=== PATIENT | female | born 1945 | race Caucasian/White ===

== ENCOUNTER → 2016-08-14 | Day surgery (SDC) | payer OTHER ==
[2016-08-07 10:18] VITALS: BMI 39.0
[~2016-08-14] VITALS: Ht 167.6 cm; Wt 105.5 kg
[~2016-08-14] MED LIST: ALBU18002 INH; ALBU1AER9 INH; AMLO-110 PO; ASCO500T3 PO; ASPCH81X PO; ATOR-26 PO; ATV/1 PO; CANA1TAB PO; CARB200T3 PO; DIPH25CA65 PO; DOCU100T7 PO; FEXO1TAB49 PO; FLUT0.15 NAE; FLUT1INH INH; FRS/40 PO; GLIM4TAB PO; LABE1TAB28 PO; LIDOCAINE HCL 2% 2 ML VIAL (20MG/ML) ONE; LOSA1TAB38 PO; MONT1TAB3 PO; OXYC-57 PO; POTA10TA PO; PROPOFOL IV EMULSION 10 MG/ML 20 ML VIAL IV ONE; SITA100T3 PO; SODIUM CHLORIDE 0.9% 500ML 500 ML IV ONE; SPIR100T PO; TIZA4CAP PO; TRAZ50TA35 PO
[2016-08-14 12:09] VITALS: Ht 167.6 cm; Wt 105.5 kg
--- NOTE | 2016-08-14 12:32 | Endo History and Physical ---
History & Physical Date of Service: Aug 14, 2016. Chief Complaint: EPIGASTRIC PAIN Referring Physician: DR. HANSON History of Present Illness epigastric pain Past Medical History Diabetes, Arthritis, Anxiety, Sleep Apnea, CHF, Hypertension, COPD, CVA/TIA Past Surgical History Hx Cardiac Surgery: Yes (RT/LEFT CAROTID ENDARTERECTOMY) Hx Internal Defibrillator: No Hx Pacemaker: No Hx Abdominal Surgery: Yes (OPEN ROBYN, D&C) Hx of Implantable Prosthesis: No Hx Post-Op Nausea and Vomiting: No Hx Cancer Surgery: No Hx Thoracic Surgery: No Hx Orthopedic: No Hx Urinary Tract Surgery: No Family History None Social History Smoking Status: Former Smoker Hx Substance Use: Yes (SEE MED REC) Hx Alcohol Use: Yes (VERY RARELY) Allergies Coded Allergies: Clarithromycin (Verified Allergy, Unknown, BURNING MOUTH, 08/14/16) Current Medications Reported Home Medications Medications Dose Route/Sig Max Daily Dose Days Date Category Dose Instructions Vitamin C (Ascorbic Acid) 500 Mg Tab 1 Tab PO DAILY AT NOON 08/07/16 Reported Proair Respiclick (Albuterol Sulfate) 108 Mcg/Act Aer 2 Puffs INH QID PRN 08/07/16 Reported Aspirin Chewable (Aspirin) 81 Mg Chew 81 Mg PO QAM 08/07/16 Reported Normodyne (Labetalol HCl) 200 Mg Tab 200 Mg PO BID 08/07/16 Reported Flonase Allergy Relief (Fluticasone Propionate (Nasal)) 50 Mcg/Act Spr 2 [place] TANIYA HS 08/07/16 Reported Breo Ellipta (Fluticasone Furoate-Vilanterol) 1 Inh Inh 1 Puff INH QAM 08/07/16 Reported Singulair (Montelukast Sodium) 10 Mg Tab 10 Mg PO QPM 08/07/16 Reported Lipitor (Atorvastatin Calcium) 80 Mg Tab 80 Mg PO DAILY AT NOON 08/07/16 Reported Lasix (Furosemide) 40 Mg Tab 40 Mg PO BID 08/07/16 Reported TAKE 1 TAB IN AM TAKE 0.5TAB IN AFTERNOON Cozaar (Losartan Potassium) 100 Mg Tab 100 Mg PO HS 08/07/16 Reported Benadryl Allergy (Diphenhydramine Hcl) 25 Mg Cap 1 Cap PO BID 30 08/07/16 Reported Norvasc (Amlodipine Besylate) 5 Mg Tab 5 Mg PO HS 08/07/16 Reported Aldactone (Spironolactone) 100 Mg Tab 100 Mg PO DAILY AT LUNCH 08/07/16 Reported Amaryl (Glimepiride) 4 Mg Tab 4 Mg PO QAM 08/07/16 Reported K-Tabs (Potassium Chloride) 10 Meq Tab 1 Tab PO QPM 08/07/16 Reported Trazodone (Trazodone HCl) 50 Mg Tab 50 Mg PO HS 08/07/16 Reported Invokana (Canagliflozin) 100 Mg Tab 1 Tab PO QPM 08/07/16 Reported Tegretol (Carbamazepine) 200 Mg Tab 200 Mg PO BID 08/07/16 Reported Ativan (Lorazepam) 1 Mg Tab 1 Mg PO HS 08/07/16 Reported Zanaflex (Tizanidine HCl) 4 Mg Cap 4 Mg PO Q8H PRN 08/07/16 Reported Januvia (Sitagliptin Phosphate) 100 Mg Tab 100 Mg PO DAILY AT LUNCH 08/07/16 Reported Stool Softener (Docusate Sodium) 100 Mg Tab 1 Tab PO QPM 08/07/16 Reported Percocet 5MG/325MG (Oxycodone/Acetaminophen) Tab 1 Tab PO TID PRN 30 08/07/16 Reported PAIN Proair Hfa (Albuterol) Aers 2 Puffs INH QID PRN 09/08/15 Rx Use 2 puffs prior to activity + every 6 hours as needed for wheezing, chest tightness, shortness of breat. Teodora Allergy (Fexofenadine Hcl) 180 Mg Tab 1 Tab PO HS 14 08/07/16 Reported Vital Signs Weight (Kilograms): 105.5 Height (Feet): 5 Height (Inches): 6 Date Time Temp Pulse Resp B/P Pulse Ox O2 Delivery O2 Flow Rate FiO2 08/14/16 12:17 36.8 80 18 182/90 94 Room Air Physical Exam General Appearance: WD/WN Respiratory/Chest: Auscultation: breath sounds normal Cardiovascular: Apical Impulse: not displaced Heart Auscultation: RRR Abdomen: Bowel Sounds: normal Assessment and Plan Epigastric pain - EGD
--- NOTE | 2016-08-14 13:05 | GI REPORT ---
Procedure Date: 08/14/2016 12:44 PM Procedure: Upper GI endoscopy Indications: Epigastric abdominal pain Medicines: See the Anesthesia note for documentation of the administered medications Complications: No immediate complications. Estimated Blood Loss: Estimated blood loss: none. Procedure: Pre-Anesthesia Assessment: - ASA Grade Assessment: III - A patient with severe systemic disease. After obtaining informed consent, the endoscope was passed under direct vision. Throughout the procedure, the patient's blood pressure, pulse, and oxygen saturations were monitored continuously. The scope was introduced through the mouth, and advanced to the second part of duodenum. The upper GI endoscopy was accomplished without difficulty. The patient tolerated the procedure well. Findings: There was a mild ring at the GE junction. The esophagus was otherwise normal. There was a mild amount of bilious fluid in the stomach. There was patchy erythema in the antrum. There was a scar and deformity of the antrum, as well as deformity of the pylorus, likely from prior ulcer. The stomach was otherwise normal. Random biopsies done. The duodenum was normal. Random biopsies done. Recommendation: - Discharge patient to home. Landon Kline M.D. Landon Kline MD 08/14/2016 1:05:04 PM This report has been signed electronically. Note Initiated On: 08/14/2016 12:44 PM I attest to the content of the Intraoperative Record and orders documented therein, exceptions below
--- NOTE | 2016-08-14 13:19 | Discharge Instructions ---
Endoscopy Patient Instructions Date / Procedure(s) Performed Aug 14, 2016. EGD Allergy Information Coded Allergies: Clarithromycin (Verified Allergy, Unknown, BURNING MOUTH, 08/14/16) Discharge Date / Findings Aug 14, 2016. Scar from prior PUD. Mild gastritis. Medication Instructions Stopped Medication(s): INSTRUCTED TO ONLY TAKE THE LABETALOL. Provider Instructions Activity Restrictions - No exercising or heavy lifting for 24 hours. - Do not drink alcohol the day of the procedure. - Do not drive a car or operate machinery until the day after the procedure. - Do not make any important decisions or sign important papers in 24 hours after the procedure. Following Day: - Return to full activity which may include returning to work/school. Diet Start your diet with liquids and light foods (jello, soup, juice, toast). Then eat your usual diet if not nauseated. Treatment For Common After Affects For mild abdominal pain, bloating, or excessive gas: - Rest - Eat lightly - Lie on right side Follow-Up Information Follow-up with DR. HANSON as scheduled Anesthesia Information What You Should Know You have had a procedure that required some medicine to reduce anxiety and discomfort. This treatment is called moderate sedation. After receiving the treatment, you may be sleepy, but you will be able to breathe on your own. The effects of the treatment may last for several hours. Follow these instructions along with Activity/Diet recommendations noted above: * Do NOT do anything where dizziness or clumsiness would be dangerous. * Rest quietly at home today, then you can be up and about tomorrow. * Have a responsible person stay with you the rest of today. * You may have had an I.V. today. If so, you may take the dressing off later today. Recommendations Call your doctor if: * Trouble breathing * Continuous vomiting for more than 24 hours * Temperature above 101 degrees * Severe abdominal pain or bloating * Pain not relieved by pain medicine ordered * There is increased drainage or redness from any incision * A large amount of rectal bleeding greater than 2-3 tablespoons. (If you had a polyp/s removed or have hemorrhoids, a small amount of blood - from the rectum is to be expected.) * You have any unanswered questions or concerns. IN THE EVENT OF A SERIOUS EMERGENCY, GO TO THE NEAREST EMERGENCY ROOM Your discharge instructions were prepared by provider Landon Mcclelland. Patient Instructions Signature Page Rama Alvarez Patient (or Guardian) Signature/Date: I have read and understand the instructions given to me by my caregivers. Caregiver/RN/Doctor Signature/Date: The above-named patient and/or guardian has received patient instructions on this date. + Original Patient Signature Page (only) stays with chart. Please make copy for patient.
[2016-08-14 13:29] VITALS: BP 150/68; PULSE 71; O2SAT 91
--- NOTE | 2016-08-14 14:06 | Anesthesiology Progress Note ---
Anesthesia Post Op Note Date & Time Aug 14, 2016 at 14:06 Vital Signs Pain Intensity: 0 Vital Signs Past 12 Hours Date Time Temp Pulse Resp B/P Pulse Ox O2 Delivery O2 Flow Rate FiO2 08/14/16 13:29 71 18 150/68 91 Room Air 08/14/16 13:14 73 18 132/59 92 Room Air 08/14/16 12:59 72 18 133/63 95 Room Air 08/14/16 12:17 36.8 80 18 182/90 94 Room Air Notes Mental Status: alert / awake / arousable, participated in evaluation Pt Amnestic to Procedure: Yes Nausea / Vomiting: adequately controlled Pain: adequately controlled Airway Patency, RR, SpO2: stable & adequate BP & HR: stable & adequate Hydration State: stable & adequate Anesthetic Complications: no major complications apparent
== END | disposition home or self-care (01) ==
LOC: C.GI 11:46
PROVIDERS: ATTEND Internal Medicine Gastroenterology
DX: K29.50 Unspecified chronic gastritis without bleeding (principal); K29.80 Duodenitis without bleeding; R10.13 Epigastric pain; K22.2 Esophageal obstruction; E11.9 Type 2 diabetes mellitus without complications; I10 Essential (primary) hypertension; G47.30 Sleep apnea, unspecified; Z87.891 Personal history of nicotine dependence; J44.9 Chronic obstructive pulmonary disease, unspecified; Z86.73 Personal history of transient ischemic attack (TIA), and cerebral infarction without residual deficits

== ENCOUNTER → 2016-12-10 | Outpatient (CLI) | payer OTHER ==
[~2016-12-10] MED LIST changes: -LIDOCAINE HCL 2% 2 ML VIAL (20MG/ML) ONE; -PROPOFOL IV EMULSION 10 MG/ML 20 ML VIAL IV ONE; -SODIUM CHLORIDE 0.9% 500ML 500 ML IV ONE
--- NOTE | 2016-12-10 16:16 | MAMMOGRAPHY REPORT ---
BILATERAL DIGITAL SCREENING MAMMOGRAM WITH CAD: 12/10/2016 CLINICAL HISTORY: Routine screening. TECHNIQUE: Bilateral CC, MLO and repeat right MLO views were obtained. Current study was also evalua sallie with a Computer Aided Detection (CAD) system. COMPARISON: Comparison is made to exams dated: 10/11/2015 mammogram, 09/14/2014 mammogram, 09/13/2013 ma mmogram, 08/10/2012 mammogram, 08/07/2011 mammogram, and 08/06/2010 mammogram - [facility] er. BREAST COMPOSITION: There are scattered areas of fibroglandular density in both breasts. FINDINGS: There is stable nodularity in the medial anterior left breast. No new suspicious mass, arc hitectural distortion or cluster of microcalcifications is seen. IMPRESSION: ACR BI-RADS CATEGORY 1: NEGATIVE There is no mammographic evidence of malignancy. A 1 year screening mammogram is recommended. The pa tient will receive written notification of the results. Approximately 10% of breast cancers are not detected with mammography. A negative mammographic report should not delay biopsy if a clinically suggestive mass is present. Leyla Galloway M.D. ay/:12/10/2016 15:32:35 Quotation Clerk: Giorgio WRIGHT(Bubba)(M), [facility] letter sent: Normal 1/2 BI-RADS Code: ACR BI-RADS Category 1: Negative
== END | disposition home or self-care (01) ==
LOC: C.MAMM 14:57
PROVIDERS: ATTEND Internal Medicine
DX: Z12.31 Encounter for screening mammogram for malignant neoplasm of breast (principal)

== ENCOUNTER 2017-11-14 04:59 | Inpatient (IN) | payer OTHER ==
[2017-10-13 11:55] VITALS: BMI 37.0
--- NOTE | 2017-10-13 12:44 | PAT Medication Instructions ---
Service Date Oct 13, 2017. Current Home Medication List Albuterol Hfa (Ventolin Hfa), Unknown Dose INH UD PRN for prn Amlodipine (Norvasc), 5 MG PO HS Ascorbic Acid (Vitamin C), 1 TAB PO DAILY AT NOON Aspirin (Aspirin Chewable), 81 MG PO QAM Atorvastatin (Lipitor), 80 MG PO DAILY AT NOON Canagliflozin (Invokana), 1 TAB PO QPM Carbamazepine (Tegretol), 200 MG PO BID Diphenhydramine Hcl (Benadryl Allergy), 1 CAP PO HS Fexofenadine Hcl (Teodora Allergy), 1 TAB PO HS Fluticasone Furoate-Vilanterol (Breo Ellipta), 1 PUFF INH QAM Fluticasone Propionate (Nasal) (Flonase Allergy Relief), 2 SPRAY TANIYA HS Furosemide (Lasix), 40 MG PO BID Glimepiride (Amaryl), 4 MG PO QAM Home O2 Therapy (Oxygen), 3 LITERS NA UD PRN for PRN Labetalol (Normodyne), 200 MG PO BID Lorazepam (Ativan), 1 MG PO HS Losartan Potassium (Cozaar), 100 MG PO HS Menthol (Topical Analgesic) (Biofreeze), Unknown Dose TOP HS Montelukast Sodium (Singulair), 10 MG PO QPM Oxycodone/Acetaminophen 5MG/325MG (Percocet 5MG/325MG), 1 TAB PO BID PRN for Pain Potassium Chloride (K-Tabs), 1 TAB PO QPM Sitagliptin Phosphate (Januvia), 100 MG PO DAILY AT LUNCH Spironolactone (Aldactone), 100 MG PO DAILY AT LUNCH Tizanidine (Zanaflex), 4 MG PO Q8H PRN for Pain Trazodone Hcl (Trazodone), 50 MG PO HS [Rescue Kit], Unknown Dose [dry eye , eye drop ], Unknown Dose OPB UD PRN for dry eyes [eucerin diabetic], 1 APPLN TOP UD Medication Instructions For Your Scheduled Surgery -Continue as directed: Home O2 Therapy (Oxygen), 3 LITERS NA UD PRN for PRN [Rescue Kit], Unknown Dose - Hold the following medications 24 hours prior to surgery: Furosemide (Lasix), 40 MG PO BID (do not take the night before or the morning of surgery) Losartan Potassium (Cozaar), 100 MG PO HS (do not take the night before surgery) Menthol (Topical Analgesic) (Biofreeze), Unknown Dose TOP HS [eucerin diabetic], 1 APPLN TOP UD - Hold the following medications the morning of surgery: Glimepiride (Amaryl), 4 MG PO QAM Tizanidine (Zanaflex), 4 MG PO Q8H PRN for Pain - Take the following medications the morning of surgery with a sip of water: Aspirin (Aspirin Chewable), 81 MG PO QAM Carbamazepine (Tegretol), 200 MG PO BID Fluticasone Furoate-Vilanterol (Breo Ellipta), 1 PUFF INH QAM Labetalol (Normodyne), 200 MG PO BID Oxycodone/Acetaminophen 5MG/325MG (Percocet 5MG/325MG), 1 TAB PO BID PRN for Pain (if needed, can be taken up to four hours before surgery) [dry eye , eye drop ], Unknown Dose OPB UD PRN for dry eyes (if needed) - Take the following medications as scheduled the afternoon/night before surgery : Albuterol Hfa (Ventolin Hfa), Unknown Dose INH UD PRN for prn (if needed) Amlodipine (Norvasc), 5 MG PO HS Ascorbic Acid (Vitamin C), 1 TAB PO DAILY AT NOON Atorvastatin (Lipitor), 80 MG PO DAILY AT NOON Canagliflozin (Invokana), 1 TAB PO QPM Carbamazepine (Tegretol), 200 MG PO BID Diphenhydramine Hcl (Benadryl Allergy), 1 CAP PO HS Fexofenadine Hcl (Teodora Allergy), 1 TAB PO HS Fluticasone Propionate (Nasal) (Flonase Allergy Relief), 2 SPRAY TANIYA HS Labetalol (Normodyne), 200 MG PO BID Lorazepam (Ativan), 1 MG PO HS Montelukast Sodium (Singulair), 10 MG PO QPM Oxycodone/Acetaminophen 5MG/325MG (Percocet 5MG/325MG), 1 TAB PO BID PRN for Pain (if needed) Potassium Chloride (K-Tabs), 1 TAB PO QPM Sitagliptin Phosphate (Januvia), 100 MG PO DAILY AT LUNCH Spironolactone (Aldactone), 100 MG PO DAILY AT LUNCH Tizanidine (Zanaflex), 4 MG PO Q8H PRN for Pain (if needed) Trazodone Hcl (Trazodone), 50 MG PO HS [dry eye , eye drop ], Unknown Dose OPB UD PRN for dry eyes (if needed) If you have any questions please call us at [phone] or [phone] or [phone]
[2017-10-13 14:12] LABS: BASO % 0.4 %; BASO ABS # 0.04 K/uL (0-0.2); EOS ABS # 0.19 K/uL (0-0.5); HEMATOCRIT 39.9 % (37-47); HEMOGLOBIN 13.2 g/dL (12.0-16.0); IG# 0.03 K/uL (0.00-0.02); LYMPH % 27.5 %; LYMPH ABS # 2.66 K/uL (1.2-3.4); MEAN CELL VOLUME 93.4 fL (80-100); MEAN CORPUSCULAR HEMOGLOBIN 30.9 pg (25-34); MEAN CORPUSCULAR HGB CONC 33.1 g/dl (32-36); MEAN PLATELET VOLUME 10.3 fL (7.4-10.4); MONO % 8.1 %; MONO ABS # 0.78 K/uL (0.11-0.59); NEUT % 61.7 %; NEUT ABS # 5.98 K/uL (1.4-6.5); PLATELET COUNT 278 K/uL (130-400); RED CELL DISTRIBUTION WIDTH CV 12.8 % (11.5-14.5); RED CELL DISTRIBUTION WIDTH SD 43.3 fL (36.4-46.3); WHITE BLOOD COUNT 9.68 K/uL (4.8-10.8)
[2017-10-13 14:21] LABS: PTT PATIENT 26.5 SECONDS (21.0-31.0)
--- NOTE | 2017-11-13 09:12 | HISTORY & PHYSICAL EXAMINATION ---
DATE OF ADMISSION: 11/14/2017 CHIEF COMPLAINT: Primary osteoarthritis of the right shoulder. HISTORY OF PRESENT ILLNESS: Rama is a pleasant 71-year-old female who has been complaining of chronic right shoulder pain. X-rays and clinical examination are diagnostic for primary osteoarthritis of the right shoulder. After failing extensive conservative treatment, she has elected to proceed with a right total shoulder arthroplasty. She understands the risks, benefits, alternatives to procedure and has elected to proceed. 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 PAST SURGICAL HISTORY: Significant for cholecystectomy, microvascular decompression of the fifth nerve over the face for the trigeminal neuralgias, and bilateral carotid endarterectomies in 2003. ALLERGIES: BIAXIN. MEDICATIONS: Include aspirin, amlodipine, furosemide, Lipitor, carbamazepine, losartan, spironolactone, labetalol, Teodora, vitamin C, glimepiride, Singulair, Breo, trazodone, Januvia, tizanidine, Invokana, [place], and potassium. FAMILY HISTORY: Significant for stroke and ankylosing spondylitis. SOCIAL HISTORY: The patient is , rarely drinks, has 2 kids. Her is able to take care of her at home. REVIEW OF SYSTEMS: She complains of right shoulder pain. All other pertinent review of systems are negative. PHYSICAL EXAMINATION: GENERAL: She is awake, alert, and oriented x3. She is in no apparent distress. She is very pleasant. HEENT: Pupils are equal, round, and reactive to light. Extraocular motions intact. Oral mucosa is pink and moist. CARDIOVASCULAR: The heart has regular rate per radial pulse. RESPIRATORY: The lungs patrizia symmetrically bilaterally with no audible breath sounds. GASTROINTESTINAL: The abdomen is soft, nontender, nondistended. MUSCULOSKELETAL: On physical examination of the right shoulder, she has slightly decreased range of motion in forward flexion. She can forward flex about 125 degrees. She has 5/5 muscle strength in full can test and external rotation. She has significant crepitus throughout range of motion and a lot of pain over the anterior glenohumeral joint line. IMAGING DATA: X-rays of the right shoulder show advanced osteoarthritis with joint space narrowing and large inferior osteophyte formation. IMPRESSION: Advanced osteoarthritis of the right shoulder. PLAN: We will proceed with a right total shoulder arthroplasty. Postoperatively, she will be placed in an arm sling and kept overnight in the hospital for postoperative medical management. She will use ALOHA upon discharge.
[~2017-11-14] VITALS: Ht 167.6 cm; Wt 105.8 kg
[2017-11-14] VITALS (12 sets, daily range): BP systolic 132–166; BP diastolic 72–92; PULSE 65–84; TEMP 36.4–37.3; O2SAT 90–100; Ht 167.6 cm; Wt 105.8 kg
[~2017-11-14 04:59] MED LIST changes: -ALBU18002 INH; -ALBU1AER9 INH; -DOCU100T7 PO; +MENT4GEL TOP; +OXGN; +RESCUE; +VNTHFA/IN INH; +[UNRECOGNIZED DRUG - OTHER] TOP; +[UNRECOGNIZED DRUG - REMARK] OPB
[2017-11-14] MEDS ORDERED: LACTATED RINGER'S 1000ML IV SCH (06:00)
[2017-11-14] MEDS ORDERED: FAMOTIDINE 20 MG TAB PO SCH (06:00)
[2017-11-14] MEDS ORDERED: ACETAMINOPHEN 500 MG TAB PO SCH (06:00)
[2017-11-14] MEDS ORDERED: GABAPENTIN 300 MG CAP PO SCH (06:00)
[2017-11-14] MEDS ORDERED: ROPIVACAINE 5MG/ML 30 ML 150 MG, BUPIVACAINE 0.5% MPF INJ 30 ML, EpINEphrine HCL INJ 0.... INFIL SCH ×8 (06:00)
[2017-11-14] MEDS ORDERED: CEFAZOLIN 2000MG IV PUSH 15 ML IV SCH (06:00)
[2017-11-14] MEDS ORDERED: BACITRACIN 50000 UNIT VIAL ONE (06:34)
[2017-11-14] MEDS ORDERED: ORTHO JOINT ANESTHETIC ONE (06:34)
[2017-11-14] MEDS ORDERED: FENTANYL CITRATE INJ 50 MCG/1 ML 2 ML VIAL ONE (06:35)
[2017-11-14] MEDS ORDERED: MIDAZOLAM HCL 1 MG/ML 2ML VIAL ONE ×2 (06:35)
[2017-11-14] MEDS ORDERED: ROPIVACAINE 0.5% 5 MG/ML 30 ML VIAL ONE (06:40)
[2017-11-14] MEDS ORDERED: BUPIVACAINE/EPINEPHRINE 0.5% MPF 1:200,000 10 ML VIAL ONE (06:40)
[2017-11-14] MEDS ORDERED: SODIUM CHLORIDE 0.9% INJ 10 ML VIAL ONE (06:40)
--- NOTE | 2017-11-14 06:40 | History & Physical Bridge Note ---
H&P Re-Evaluation Bridge Note: I have examined the patient, reviewed the History & Physical and in the interval since the performance of the History & Physical I have noted the following changes of clinical significance: No changes noted
[2017-11-14] MEDS: TRANEXAMIC ACID INJ 1,000 MG x 2 Bags IV SCH ×4 (06:55→11:03)
[2017-11-14] MEDS ORDERED: EpHEDrine SULFATE INJ 50 MG/ML AMP IV PRN (09:00)
[2017-11-14] MEDS ORDERED: ATROPINE SULFATE 0.1 MG/ML 5ML SYR IV PRN (09:00)
[2017-11-14] MEDS ORDERED: ONDANSETRON INJ 2 MG/ML 2 ML VIAL IV PRN ×2 (09:00→09:45)
[2017-11-14] MEDS ORDERED: NEOSTIGMINE METHYLSULFATE 5 MG/5 ML SYR ONE (09:13)
[2017-11-14] MEDS ORDERED: EpHEDrine SULFATE 50MG/5ML SYR ONE (09:13)
[2017-11-14] MEDS ORDERED: ROCURONIUM BROMIDE 10 MG/ML 5 ML VIAL ONE (09:13)
[2017-11-14] MEDS ORDERED: EpHEDrine SULFATE INJ 50 MG/ML AMP ONE (09:13)
[2017-11-14] MEDS ORDERED: LIDOCAINE HCL 2% 2 ML VIAL (20MG/ML) ONE (09:13)
[2017-11-14] MEDS ORDERED: GLYCOPYRROLATE INJ 0.2 MG/ML VIAL ONE ×2 (09:13→09:25)
[2017-11-14] MEDS ORDERED: PHENYLEPHRINE 100MCG/ML 5ML SYR ONE (09:13)
--- NOTE | 2017-11-14 09:33 | [facility] Post Operative Brief Note ---
Immediate Operative Summary Operative Date November 14, 2017. Pre-Operative Diagnosis Primary Osteoarthritis or Right Shoulder Post-Operative Diagnosis Primary Osteoarthritis or Right Shoulder Procedure(s) Performed Right Total Shoulder Arthroplasty Surgeon Dr Yang Ceramics Machine Operator Surgeon(s) Carlton Palafox PA-C Estimated Blood Loss 250ML Findings Consistent with Post-Op Diagnosis Specimens A: Humeral Head Anesthesia Type General Regional Complication(s) none Disposition Disposition: Recovery Room / PACU
--- NOTE | 2017-11-14 09:43 | Discharge Instructions ---
Discharge Instructions Date of Service November 14, 2017. Admission Reason for Admission: Right Shoulder Degenerative Joint Disease Discharge Discharge Diagnosis / Problem: Left Total Shoulder Discharge Goals Goal(s): Decrease discomfort, Improve function Activity Recommendations Activity Limitations: as noted below . Instructions / Follow-Up Instructions / Follow-Up Activity and Therapy Recommendations: * Wear your sling for 3 weeks, unless otherwise instructed. You may remove your sling to shower and to dress, but otherwise, you should be in your sling at all times, including while sleeping * The shoulder replacement is very stable and you can use your hand while in the sling * Physical Therapy should start about 3-5 days from your day of surgery. Therapy will last about 8-12 weeks * You were shown a series of exercises in the hospital. Do these exercises daily including the exercises you were shown in physical therapy. Medications: * Narcotic You will likely be sent home from the hospital with a prescription for the narcotic pain medication that worked best throughout your stay. * Other medications may be prescribed for specific circumstances. If you have any questions, please call the office at . * Resume previous home medications unless otherwise instructed Dressing Care: If the incision is not draining then you may leave the mayra open to air. If there is a little bit of drainage or if the mayra are getting stuck on your clothing then cover the incision with a dry dressing. The mayra will be removed at your 2 week follow-up appointment. Showering: You may shower 5 days from the day of surgery. Let the soapy shower water run over the mayra and pat them dry. Do not scrub or soak the incision. Things To Watch For: * Drainage from the incision site that occurs more than one week after your surgery. * Increased redness at the incision site. * Fever above 102 degrees Fahrenheit. * Unusual chest pain or shortness of breath. * Call [facility] at with any of the above problems Follow-Up Visit: Follow-up with Dr. Yang 2 weeks after your day of surgery. An appointment was probably scheduled when you signed-up for surgery in the office. If you have any questions call Office Instructions: More detailed instructions as well as Frequently Asked Questions were provided in a folder by our office when you signed-up for surgery. Please review these instructions when you get home. If you have any further questions or concerns, please feel free to call the office at [phone] Current Hospital Diet Patient's current hospital diet: Diabetes Type 2 Diet Discharge Diet Recommended Diet: Diabetes Type 2 Diet Procedures Procedures Performed: Right Total Shoulder Arthroplasty Pending Studies Studies pending at discharge: no Medical Emergencies . Who to Call and When: Medical Emergencies: If at any time you feel your situation is an emergency, please call 911 immediately. . Non-Emergent Contact Non-Emergency issues call your: Surgeon Call Non-Emergent contact if: wound has increased drainage, wound has increased redness . "Provider Documentation" section prepared by Edgard Yang. .
[2017-11-14] MEDS ORDERED: SOD PHOSPHATE/SOD BIPHOSPHATE ENEMA 132 ML BTL PR PRN (09:45)
[2017-11-14] MEDS ORDERED: BISACODYL 10 MG SUPP PR PRN (09:45)
[2017-11-14] MEDS ORDERED: METOCLOPRAMIDE HCL INJ 5 MG/ML 2 ML VIAL IV PRN (09:45)
[2017-11-14] MEDS ORDERED: NALOXONE HCL 0.4 MG/1 ML VIAL/CARP IV PRN (09:45)
[2017-11-14] MEDS ORDERED: MAGNESIUM HYDROXIDE SUSP 30 ML UDC PO PRN (09:45)
[2017-11-14] MEDS ORDERED: HYDROmorphone HCL 2 MG TAB PO PRN (09:45)
[2017-11-14] MEDS ORDERED: ALBUTEROL HFA INHALER 8.5 GM INH ONE (10:13)
--- NOTE | 2017-11-14 10:20 | DIAGNOSTIC IMAGING REPORT ---
R SHOULDER MIN 2 VIEWS ROUTINE CLINICAL HISTORY: Post shoulder surgery pain COMPARISON: None. DISCUSSION: Anatomic alignment post right shoulder arthroplasty. Expected soft tissue postoperative change. IMPRESSION: Anatomic alignment post right shoulder arthroplasty. The above report was generated using voice recognition software. It may contain grammatical, syntax or spelling errors. Electronically signed by: Reginaldo Mary M.D. 11/14/2017 10:19 AM Dictated Date/Time: 11/14/2017 10:19 AM
--- NOTE | 2017-11-14 10:22 | OPERATIVE REPORT ---
DATE OF OPERATION: 11/14/2017 PREOPERATIVE DIAGNOSIS: Primary osteoarthritis of the right shoulder. POSTOPERATIVE DIAGNOSIS: Primary osteoarthritis of the right shoulder. PROCEDURE: Right total shoulder arthroplasty. SURGEON: Edgard Yang DO COLLAR RUNNER: Efrem Palafox PA-C, whose assistance was necessary for retraction and closure. ANESTHESIA: General with a right interscalene nerve block. COMPLICATIONS: None. CONDITION: Stable to PACU. INDICATIONS: Rama is a pleasant 71-year-old female who presented to my office with chronic increasing right shoulder pain. X-rays and clinical examination were diagnostic for primary osteoarthritis of the right shoulder. After failing conservative treatment, she elected to undergo a right total shoulder arthroplasty. OPERATION AND FINDINGS: On 11/14/2017, she arrived at [facility] for the above procedure. She was seen in the preoperative holding area and the operative extremity was identified and signed. She was given preoperative antibiotic and a right interscalene nerve block. She was taken back to the operating room, laid on the table in supine position and put under general anesthesia. She was then put into the beach chair position. The right shoulder was prepped and draped in sterile fashion. Time-out was done. The patient's operative extremity was properly identified. A deltopectoral approach was used. Dissection was taken down through the fascia and the anterior shoulder was exposed. The long head of the biceps tendon was tenodesed to the upper border of the pectoralis major. The subscapularis was tenotomized off the lesser tuberosity with a centimeter of cuff tissue remaining. The proximal humerus was exposed. Sequential reaming up to a size 12 reamer was done. Off that reamer, a proximal humeral resection guide was placed and the humerus was resected at 135 degrees of inclination and 30 degrees of retroversion. The head was removed and osteophytes were removed off the inferior humeral neck. The rotator cuff was palpated and felt to be fully intact. The glenoid was then exposed. Time was spent doing a complete circumferential labral release. The biceps stump was removed. The conXt signature guide was then snapped on to the anterior aspect of the glenoid and the guide pin was placed in the total shoulder arthroplasty hole. A small reamer was used to ream the glenoid. The central boss was then drilled followed by 3 peripheral peg holes. The final glenoid was then cemented in place with Palacos-G cement. The proximal humerus was then exposed. Sequential broaching up to a size 12 broach was done. A size 42 x 18 mm eccentric humeral head was then impacted into place. The shoulder was reduced, brought through a full range of motion and felt to be stable. The shoulder was dislocated. The broach was removed. The final size 12 mini stem was then impacted into place. A 42 x 18 mm eccentric humeral head was then impacted into place. The shoulder was reduced, brought through a full range of motion and felt to be stable. The subscapularis was then tenodesed back to the lesser tuberosity with transosseous FiberWire sutures and [id number] sutures. Two FiberWire sutures were placed in the lateral rotator interval. Surrounding soft tissues were injected with 100 mL of an orthopedic pain control cocktail. The axillary nerve was palpated and intact. The joint was then irrigated with 3 L normal saline solution with bacitracin. The skin was then closed with 2-0 Vicryl, 3-0 V-Loc suture and mayra. She was placed in a soft dressing and a regular arm sling. She was then extubated, transferred to a [facility] and taken to the postanesthesia care in stable condition. She tolerated the procedure well. IMPLANTS USED: I used a Biomet comprehensive right total shoulder arthroplasty with a small glenoid with Regenerex post-size 12 press fit mini stem and a 42 x 18 mm eccentric humeral head. The glenoid was cemented with Palacos-G cement. I attest to the content of the Intraoperative Record and any orders documented therein. Any exception s are noted below.
[2017-11-14] MEDS: FENTANYL CITRATE INJ 50 MCG/1 ML 2 ML VIAL IV PRN ×4 (10:30→10:46)
--- NOTE | 2017-11-14 11:05 | Anesthesiology Progress Note ---
Anesthesia Post Op Note Date & Time November 14, 2017 at 10:57 Vital Signs Pain Intensity: 4 Vital Signs Past 12 Hours Date Time Temp Pulse Resp B/P (MAP) Pulse Ox O2 Delivery O2 Flow Rate FiO2 11/14/17 10:55 36.3 94 Nasal Cannula 2 11/14/17 10:47 64 18 95 11/14/17 10:47 64 18 11/14/17 10:46 146/62 11/14/17 10:42 64 18 11/14/17 10:42 64 18 94 11/14/17 10:41 155/70 11/14/17 10:37 65 15 11/14/17 10:37 65 15 95 11/14/17 10:36 163/72 11/14/17 10:32 71 22 11/14/17 10:32 71 22 108/59 94 11/14/17 10:27 67 19 11/14/17 10:27 67 19 145/53 97 11/14/17 10:26 149/70 11/14/17 10:22 66 20 145/54 95 11/14/17 10:22 67 20 11/14/17 10:21 148/75 155/60 11/14/17 10:17 65 17 11/14/17 10:17 65 17 143/54 96 11/14/17 10:16 146/62 11/14/17 10:12 67 18 142/54 95 11/14/17 10:12 67 18 11/14/17 10:11 66 19 157/77 144/53 11/14/17 10:11 19 11/14/17 10:06 66 14 11/14/17 10:06 68 14 153/77 95 11/14/17 10:01 71 21 11/14/17 10:01 70 21 149/76 93 154/77 11/14/17 10:00 70 96 40 11/14/17 09:56 71 15 11/14/17 09:56 36.2 68 17 147/85 99 BiPAP 40 11/14/17 09:56 71 15 147/85 97 11/14/17 05:41 37.3 72 18 146/72 90 Room Air Notes Mental Status: alert / awake / arousable, participated in evaluation Pt Amnestic to Procedure: Yes Nausea / Vomiting: adequately controlled Pain: adequately controlled Airway Patency, RR, SpO2: stable & adequate BP & HR: stable & adequate Hydration State: stable & adequate Anesthetic Complications: no major complications apparent The patient is a 71 y/o with a history of COPD requiring home 02, CHAZ on BIPAP, Asthma, carotid stenosis s/p B CEA, CVA, DM II and glaucoma s/p R total shoulder arthroplasty with Dr. Yang under [place] with supraclavicular nerve block. The patient's saturation on room air preoperatively was 90% and she stated she rarely maintains her oxygen level above 90 without oxygen. Her lungs were diminished throughout on exam but clear. The patient did well intraoperatively and was extubated at the end of the procedure. She was placed on BIPAP for a short time in recovery prophylactically to avoid obstruction, however she became more alert this was discontinued. She is now awake and is saturating 94% on 2l nc. She will be going to the floor with continuous pulse oximetry. Dr. Costa from internal medicine will be following her. A full report was given to him.
[2017-11-14] MEDS ORDERED: GLUCAGON FOR INJ 1 MG VIAL SQ PRN ×2 (11:45→12:30)
[2017-11-14] MEDS ORDERED: CARBOHYDRATES FOR HYPOGLYCEMIA PO PRN ×2 (11:45→12:30)
[2017-11-14] MEDS ORDERED: GLUCOSE 40% GEL 15 GM TUBE PO PRN ×2 (11:45→12:30)
[2017-11-14] MEDS ORDERED: DEXTROSE 50% 50 ML SYR IV PRN ×2 (11:45→12:30)
[2017-11-14] MEDS ORDERED: GLUCOSE 10 TABS/TUBE PO PRN ×2 (11:45→12:30)
[2017-11-14] MEDS ORDERED: ALBUT/IPRATROP 3MG/0.5MG NEB 3 ML VIAL INH PRN (12:00)
[2017-11-14] MEDS ORDERED: IPRASOL4 INH (12:08)
[2017-11-14] MEDS ORDERED: PHARMACY GLYCEMIC MGMT CONSULT STA (12:22)
--- NOTE | 2017-11-14 12:27 | Medical Consult ---
Consultation Date of Consultation: November 14, 2017. Attending Physician: Edgard Yang DO Reason for Consultation: Medical management History of Present Illness Pt is 71 y/o F with PMH HTN, COPD/asthma, CHAZ on BiPAP and O2, CVA, obesity, HLD , chronic back pain, DM II seen in medical consult after right shoulder arthroplasty by Dr. Yang today. States currently pain is under control. States slight paresthesias to right fingers, is able to freely move right hand and fingers. Denies any nausea or vomiting, drinking water without difficulty. Patient has not urinated yet since surgery. Last BM yesterday. Denies fever/ chills, diaphoresis, N/V/D/C, BRUCE, dizziness, syncope, vision changes, neck pain , CP, SOB, orthopnea, palpitations, cough, sore throat, choking, otalgia, rhinorrhea, abdominal pain, lower extremity edema, rashes, urinary symptoms. 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 (11) Trigeminal neuralgia Status: Chronic Surgical Problems: (1) Fatty tumor Permanent Comment: removed Status: Chronic (2) History of arthroplasty of right shoulder Permanent Comment: 11/14/17 - [facility] -Dr Yang Status: Resolved (3) Nerve decompression Permanent Comment: for trigeminal neuralgia Status: Chronic (4) S/P carotid endarterectomy Status: Chronic (5) S/P cholecystectomy Status: Chronic Family History Cancer FH: CAD (coronary artery disease) Hypertension Stroke Social History Smoking Status: Former Smoker Smokeless Tobacco Use: No Alcohol Use: none Drug Use: none Marital Status: Housing Status: lives with family Occupation Status: unemployed Allergies Coded Allergies: Clarithromycin (Verified Allergy, Unknown, BURNING MOUTH, 11/14/17) Uncoded Allergies: SEASONAL (Allergy, Unknown, seasonal allergies sinus congestion, 10/13/17) Current Inpatient Medications Current Inpatient Medications Medications (Trade) Dose Ordered Sig/Jeanette Route Start Time Stop Time Status Last Admin Dose Admin Cefazolin Sodium 15 ml @ 3.75 mls/ min PREOP IV 11/14/17 06:00 11/14/17 18:00 11/14/17 07:36 3.75 MLS/MIN Acetaminophen (Tylenol Tab) 1,000 mg PREOP PO 11/14/17 06:00 11/14/17 18:00 11/14/17 06:07 1,000 MG Famotidine (Pepcid Tab) 20 mg PREOP PO 11/14/17 06:00 11/14/17 18:00 11/14/17 06:06 20 MG Gabapentin (Neurontin Cap) 300 mg PREOP PO 11/14/17 06:00 11/14/17 18:00 11/14/17 06:06 300 MG Amlodipine Besylate (Norvasc Tab) 5 mg HS PO 11/14/17 21:00 12/14/17 20:59 Aspirin (Ecotrin Tab) 81 mg QAM PO 11/15/17 09:00 12/15/17 08:59 Atorvastatin Calcium (Lipitor Tab) 80 mg DAILY PO 11/15/17 09:00 12/15/17 08:59 Carbamazepine (Tegretol Tab) 200 mg TID PO 11/14/17 14:00 12/14/17 13:59 Diphenhydramine HCl (Benadryl Cap) 25 mg HS PO 11/14/17 21:00 12/14/17 20:59 Fexofenadine HCl (Teodora Tab) 180 mg HS PO 11/14/17 21:00 12/14/17 20:59 Fluticasone Propionate (Flonase Nasal [place]) 2 sprays HS TANIYA 11/14/17 21:00 12/14/17 20:59 Lorazepam (Ativan Tab) 1 mg HS PO 11/14/17 21:00 12/14/17 20:59 Losartan Potassium (coZAAR TAB) 100 mg HS PO 11/14/17 21:00 12/14/17 20:59 Montelukast Sodium (Singulair Tab) 10 mg QPM PO 11/14/17 21:00 12/14/17 20:59 Spironolactone (Aldactone Tab) 100 mg DAILY PO 11/15/17 09:00 12/15/17 08:59 Trazodone HCl (Desyrel Tab) 50 mg HS PO 11/14/17 21:00 12/14/17 20:59 Miscellaneous Information (Order Awaiting Action) 1 ea QS N/A 11/14/17 16:00 12/14/17 15:59 Tizanidine HCl (Zanaflex Tab) 4 mg Q8H PRN PO 11/14/17 09:45 12/14/17 09:44 Metoclopramide HCl (Reglan Inj) 10 mg Q6H PRN IV 11/14/17 09:45 12/14/17 09:44 Ondansetron HCl (Zofran Inj) 4 mg Q6H PRN IV 11/14/17 09:45 12/14/17 09:44 Potassium Chloride 10 meq/ Sodium Chloride 1,005 ml @ 100 mls/hr Q10H3M IV 11/14/17 21:00 12/14/17 20:59 Acetaminophen 1000 mg/Empty Bag 100 ml @ 400 mls/hr Q8 IV 11/14/17 14:00 11/15/17 13:59 Naloxone HCl (Narcan Inj) 0.1 mg Q2M PRN IV 11/14/17 09:45 12/14/17 09:44 Magnesium Hydroxide (Milk Of Magnesia Susp) 30 ml Q6H PRN PO 11/14/17 09:45 12/14/17 09:44 Bisacodyl (Dulcolax Supp) 10 mg DAILY PRN PA 11/14/17 09:45 12/14/17 09:44 Sodium Biphosphate/ Sodium Phosphate (Fleet Enema) 132 ml DAILY PRN PA 11/14/17 09:45 12/14/17 09:44 Senna (Senokot Tab) 17.2 mg HS PO 11/14/17 21:00 12/14/17 20:59 Docusate Sodium (coLACE CAP) 100 mg BID PO 11/14/17 21:00 12/14/17 20:59 Multivitamins (Multivitamin Tab) 1 tab DAILY PO 11/15/17 09:00 12/15/17 08:59 Hydromorphone HCl (Dilaudid Inj) 1 mg Q2HWA PRN IV 11/14/17 09:45 11/28/17 09:44 Hydromorphone HCl (Dilaudid Tab) 2 mg Q4HWA PRN PO 11/14/17 09:45 11/28/17 09:44 Insulin Glargine (Lantus Solostar Pen) 15 units Q12 SC 11/14/17 21:00 12/14/17 20:59 Insulin Aspart (novoLOG ASPART) SLIDING SCALE If C... ACHS SC 11/14/17 12:00 12/14/17 11:59 Glucose (Glucose 40% Gel) 15-30 GRAMS 15 GRAMS... UD PRN PO 11/14/17 11:45 12/14/17 11:44 Glucose (Glucose Chew Tab) 4-8 Tablets 4 Tabl... UD PRN PO 11/14/17 11:45 12/14/17 11:44 Dextrose (Dextrose 50% 50ML Syringe) 25-50ML 25ML FOR ... UD PRN IV 11/14/17 11:45 12/14/17 11:44 Glucagon (Glucagon Inj) 1 mg UD PRN SQ 11/14/17 11:45 12/14/17 11:44 Carbohydrates (Carbohydrates For Hypoglycemia) 15-30 GRAMS 15 grams if BSG 54-69... UD PRN PO 11/14/17 11:45 12/14/17 11:44 Cefazolin Sodium 2000 mg/Syringe 15 ml @ 3.75 mls/ min Q8H IV 11/14/17 16:00 11/15/17 15:59 Albuterol/ Ipratropium (Duoneb) 3 ml Q4R PRN INH 11/14/17 12:00 12/14/17 11:59 Non-Formulary Medication (Potassium Chloride (K-Tabs)) 1 tab QPM PO 11/14/17 21:00 12/14/17 20:59 UNV Labetalol HCl (Normodyne Tab) 100 mg QAM PO 11/15/17 09:00 12/15/17 08:59 UNV Labetalol HCl (Normodyne Tab) 200 mg PM PO 11/14/17 21:00 12/14/17 20:59 UNV Furosemide (Lasix Tab) 40 mg QAM PO 11/15/17 09:00 12/15/17 08:59 UNV Furosemide (Lasix Tab) 20 mg DAILY PO 11/14/17 14:00 12/14/17 13:59 UNV Review of Systems See HPI for pertinent positives & negatives. All other systems reviewed and were otherwise negative Physical Exam Date Time Temp Pulse Resp B/P (MAP) Pulse Ox O2 Delivery O2 Flow Rate FiO2 11/14/17 11:44 69 16 147/81 (103) 94 2.0 11/14/17 11:20 36.4 67 16 139/80 (99) 96 Nasal Cannula 2.0 11/14/17 11:20 96 Nasal Cannula 2.0 11/14/17 11:20 96 Nasal Cannula 2.0 11/14/17 11:03 65 15 11/14/17 11:03 64 15 95 11/14/17 11:01 160/62 11/14/17 10:58 61 16 11/14/17 10:58 61 16 94 11/14/17 10:56 149/72 11/14/17 10:55 36.3 94 Nasal Cannula 2 11/14/17 10:53 67 20 11/14/17 10:53 70 20 92 11/14/17 10:51 149/90 11/14/17 10:48 65 17 11/14/17 10:48 65 17 94 11/14/17 10:47 64 18 95 11/14/17 10:47 64 18 11/14/17 10:46 146/62 11/14/17 10:42 64 18 11/14/17 10:42 64 18 94 11/14/17 10:41 155/70 11/14/17 10:37 65 15 11/14/17 10:37 65 15 95 11/14/17 10:36 163/72 11/14/17 10:32 71 22 11/14/17 10:32 71 22 108/59 94 11/14/17 10:27 67 19 11/14/17 10:27 67 19 145/53 97 11/14/17 10:26 149/70 11/14/17 10:22 66 20 145/54 95 11/14/17 10:22 67 20 11/14/17 10:21 148/75 155/60 11/14/17 10:17 65 17 11/14/17 10:17 65 17 143/54 96 11/14/17 10:16 146/62 11/14/17 10:12 67 18 142/54 95 11/14/17 10:12 67 18 11/14/17 10:11 66 19 157/77 144/53 11/14/17 10:11 19 11/14/17 10:06 66 14 11/14/17 10:06 68 14 153/77 95 11/14/17 10:01 71 21 11/14/17 10:01 70 21 149/76 93 154/77 11/14/17 10:00 70 96 40 11/14/17 09:56 71 15 11/14/17 09:56 36.2 68 17 147/85 99 BiPAP 40 11/14/17 09:56 71 15 147/85 97 11/14/17 05:41 37.3 72 18 146/72 90 Room Air General Appearance: no apparent distress, + obese, + pertinent finding (Very pleasant) Head: normocephalic, atraumatic Eyes: normal inspection, sclerae normal ENT: hearing grossly normal, pharynx normal, + pertinent finding (mucous membranes moist) Neck: supple, no JVD, trachea midline Respiratory/Chest: lungs clear, normal breath sounds, no respiratory distress, no accessory muscle use Cardiovascular: regular rate, rhythm, no murmur, normal peripheral pulses Abdomen/GI: normal bowel sounds, non tender, soft Extremities/Musculoskelatal: normal capillary refill, no pedal edema, + pertinent finding (R shoulder with surgical dressing in place without discharge noted. R arm in sling. ROM R wrist and fingers intact. Strong and equal bilateral block press operator strength. Bilateral uppre and lower extremities with Sensation to light touch intact, brisk capillary refill and distal pulses intact) Neurologic/Psych: alert, normal mood/affect, oriented x 3 Skin: normal color, warm/dry Laboratory Results Last 24 Hours Test 11/14/17 05:44 11/14/17 09:56 Bedside Glucose 142 mg/dl 177 mg/dl Assessment & Plan Pt POST OP DAY#0 S/P R SHOULDER ARTHROPLASTY by Dr Yang -pain management per ortho -wound management per ortho -PT/OT as appropriate -DVT prophylaxis per ortho -incentive spirometry -monitor H&H for acute blood loss anemia ASTHMA/COPD Patient reports needs her albuterol varies on a daily basis depending on humidity. Has had to use albuterol for past week. Sometimes uses a couple times a week. Uses oxygen 3.5L NC with activities or as needed, has not used recently. Denies any shortness of breath or chest pain at this time. -continuous pulse ox -DuoNeb as needed -Continue oxygen NC as needed -Continue Singulair HTN Stable. Continue to monitor -Continue spironolactone, labetalol, losartan, Lasix, amlodipine DM II HA1c 6.3 on 09/2017 -Hold Januvia, glimepiride, Invokana -Basal bolus insulin per protocol CHAZ -Continue BiPAP with 3.5 mL oxygen at bedtime HLD -Continue atorvastatin ANXIETY -Continue Ativan as needed -Continue trazodone at bedtime as needed TRIGEMINAL NEURALGIA -Continue Tegretol DVT Prophylaxis -per ortho Disposition admitted med surg Full Code Follows with Dr Sr for routine care Pt was seen with Dr Costa. See addendum Pt will be followed by Dr Joyner during remaining hospital course. Attending addendum; The patient was seen and examined in medical floor She is a status post right shoulder arthroplasty with comorbid conditions as mentioned above Following surgery she does have some right shoulder pain but no other significant symptoms On examination No apparent distress at rest Hemodynamically stable Chest-clear to auscultate bilaterally Heart-regular Abdomen-benign ,nontender, no organomegaly Extremities-trace edema bilaterally SECTION BEAMER-alert, awake and oriented 3 No focal neuro deficit Admission labs, chest x-ray, EKG reviewed Agree with the assessment and plan as mentioned above Dr. Erick Costa Additional Copies To Ferny Sr D.O.
[2017-11-14] MEDS: INSULIN ASPART 100 UNITS/ML 3 ML PEN SC SCH ×3 (13:23→21:07)
[2017-11-14] MEDS: ACETAMINOPHEN IV 1,000 MG in EMPTY BAG 0 ML IV SCH ×2 (13:30→22:00)
[2017-11-14] MEDS: CARBAMAZEPINE 200 MG TAB PO SCH ×2 (13:36→20:47)
[2017-11-14] MEDS: POTASSIUM CHLORIDE INJ 10 MEQ in SODIUM CHLORIDE 0.9% 1000ML 1,000 ML IV SCH (13:40)
[2017-11-14] MEDS ORDERED: FUROSEMIDE 20 MG TAB PO SCH (14:00)
[2017-11-14] MEDS ORDERED: CEFAZOLIN IV 2,000 MG in DEXTROSE 5% 50ML 50 ML IV SCH (16:00)
[2017-11-14] MEDS ORDERED: FUROSEMIDE 40 MG TAB PO SCH (17:00)
[2017-11-14] MEDS ORDERED: INSULIN ASPART 100 UNITS/ML 3 ML PEN SC SCH (17:15)
[2017-11-14] MEDS: CEFAZOLIN IV 2,000 MG in SYRINGE 0 ML IV SCH (17:44)
[2017-11-14] MEDS: HYDROmorphone INJ 2 MG/ML SYR/VIAL IV PRN (20:07)
[2017-11-14] MEDS: DOCUSATE SODIUM 100 MG CAP PO SCH (20:46)
[2017-11-14] MEDS ORDERED: AMLODIPINE BESYLATE 5 MG TAB PO SCH (21:00)
[2017-11-14] MEDS ORDERED: TRAZODONE HCL 50 MG TAB PO SCH (21:00)
[2017-11-14] MEDS ORDERED: MONTELUKAST SOD 10 MG TAB PO SCH (21:00)
[2017-11-14] MEDS ORDERED: POTASSIUM CHLORIDE 10 MEQ TABCR PO SCH (21:00)
[2017-11-14] MEDS ORDERED: LORAZEPAM 1 MG TAB PO SCH (21:00)
[2017-11-14] MEDS ORDERED: POTASSIUM CHLORIDE INJ 10 MEQ in SODIUM CHLORIDE 0.9% 1000ML 1,000 ML IV SCH (21:00)
[2017-11-14] MEDS ORDERED: LOSARTAN POTASSIUM 50 MG TAB PO SCH (21:00)
[2017-11-14] MEDS ORDERED: FLUTICASONE PROPIONATE NA SPR 16 GM BTL NAE SCH (21:00)
[2017-11-14] MEDS ORDERED: LABETALOL HCL 200 MG TAB PO SCH ×2 (21:00)
[2017-11-14] MEDS ORDERED: NON-FORMULARY MEDICATION (Canagliflozin (Invokana) 1 TAB) PO SCH (21:00)
[2017-11-14] MEDS ORDERED: FEXOFENADINE HCL 180 MG TAB PO SCH (21:00)
[2017-11-14] MEDS ORDERED: SENNA 8.6 MG TAB PO SCH (21:00)
[2017-11-14] MEDS: INSULIN GLARGINE SOLOSTAR 100 UNITS/ML 3 ML PEN SC SCH (21:08)
[2017-11-15] MEDS: HYDROmorphone INJ 2 MG/ML SYR/VIAL IV PRN ×3 (00:05→05:37)
[2017-11-15] MEDS: CEFAZOLIN IV 2,000 MG in SYRINGE 0 ML IV SCH ×2 (00:05→07:48)
[2017-11-15] MEDS: POTASSIUM CHLORIDE INJ 10 MEQ in SODIUM CHLORIDE 0.9% 1000ML 1,000 ML IV SCH ×2 (00:11→09:36)
[2017-11-15 03:54] VITALS: BP 129/62; PULSE 85; TEMP 36.5; O2SAT 93
[2017-11-15] MEDS: ACETAMINOPHEN IV 1,000 MG in EMPTY BAG 0 ML IV SCH (05:26)
[2017-11-15 06:28] LABS: HEMOGLOBIN 11.1 g/dL (12.0-16.0); MEAN CELL VOLUME 94.9 fL (80-100); MEAN CORPUSCULAR HEMOGLOBIN 30.1 pg (25-34); MEAN CORPUSCULAR HGB CONC 31.7 g/dl (32-36); MEAN PLATELET VOLUME 9.3 fL (7.4-10.4); PLATELET COUNT 256 K/uL (130-400); RED CELL DISTRIBUTION WIDTH SD 45.1 fL (36.4-46.3); WHITE BLOOD COUNT 13.51 K/uL (4.8-10.8)
[2017-11-15 06:51] LABS: CALCIUM 8.2 mg/dl (8.5-10.1)
[2017-11-15 07:28] VITALS: BP 149/72; PULSE 81; TEMP 37.5; O2SAT 94
[2017-11-15] MEDS ORDERED: DLD/2 PO (07:47)
[2017-11-15] MEDS: DOCUSATE SODIUM 100 MG CAP PO SCH (08:36)
[2017-11-15] MEDS: CARBAMAZEPINE 200 MG TAB PO SCH (08:38)
[2017-11-15] MEDS: INSULIN GLARGINE SOLOSTAR 100 UNITS/ML 3 ML PEN SC SCH (08:41)
[2017-11-15] MEDS: INSULIN ASPART 100 UNITS/ML 3 ML PEN SC SCH (08:42)
[2017-11-15] MEDS ORDERED: LABETALOL HCL 100 MG TAB PO SCH (09:00)
[2017-11-15] MEDS ORDERED: MULTIVITAMIN TAB PO SCH (09:00)
[2017-11-15] MEDS ORDERED: FUROSEMIDE 40 MG TAB PO SCH (09:00)
[2017-11-15] MEDS ORDERED: ATORVASTATIN 20 MG TAB PO SCH (09:00)
[2017-11-15] MEDS ORDERED: SPIRONOLACTONE 100 MG TAB PO SCH (09:00)
[2017-11-15] MEDS ORDERED: ASPIRIN 81 MG ECTAB PO SCH (09:00)
--- NOTE | 2017-11-15 09:23 | PROGRESS NOTE ---
DATE: 11/15/2017 CHIEF COMPLAINT: Status post right total shoulder arthroplasty, postop day #1. PROGRESS: Rama was seen and examined at bedside today. Overall, she is doing very well. She is having some soreness in the shoulder but it is not too bad. She was able to get some sleep last night; has no complaints. PHYSICAL EXAMINATION: RIGHT SHOULDER: The dressing is clean and dry. She is wearing her sling as instructed. Her radial, median and ulnar nerves are checked and intact at her wrist. Her axillary nerve was not checked yet. LABORATORY DATA: Shows an H and H today of 11.1 and 35.0. Her glucose is 122. Her vital signs are all stable on 2 L nasal cannula. She is voiding on her own. X-rays postoperatively of the right shoulder show the prosthesis to be in anatomic alignment without any evidence of fracture, dislocation or loosening. IMPRESSION: Status post right total shoulder arthroplasty postoperative day #1. PLAN: At this point, she is doing well and happy with her progress. We are using Dilaudid for pain management. She will be seen by physical therapy later this morning for hand, wrist, elbow, and pendulum exercises. She is doing well. She can be discharged to home later this morning with [facility].
[2017-11-15 09:33] VITALS: BP 149/72; PULSE 81; TEMP 37.5; O2SAT 94
--- NOTE | 2017-11-15 09:40 | Progress Note ---
Medicine Progress Note Date & Time of Visit: November 15, 2017 at 09:33 . Subjective Doing well postoperatively. No chest pain. No cough or dyspnea. No nausea or vomiting. Not passing any stool yet. Voiding without difficulty. Postop pain well-controlled. . Objective Last 8 Hrs Date Time Temp Pulse Resp B/P (MAP) Pulse Ox O2 Delivery O2 Flow Rate FiO2 11/15/17 07:28 37.5 81 18 149/72 (97) 94 Nasal Cannula 2.0 11/15/17 03:54 36.5 85 18 129/62 (84) 93 BiPAP Physical Exam: General- lying in bed, no distress Lungs- clear to auscultation; no respiratory distress Cardiovascular- RRR; II/ systolic murmur at base; no gallop; no pretibial edema Abdomen- + bowel sounds, soft, nontender Extremities- no cyanosis; no calf tenderness; RUE immobilized Neuro- alert, oriented Skin- warm & dry . Laboratory Results: Last 24 Hours Test 11/14/17 09:56 11/14/17 12:39 11/14/17 17:18 11/14/17 20:56 Bedside Glucose 177 mg/dl 168 mg/dl 154 mg/dl 167 mg/dl Test 11/15/17 06:15 11/15/17 08:05 White Blood Count 13.51 K/uL Red Blood Count 3.69 M/uL Hemoglobin 11.1 g/dL Hematocrit 35.0 % Mean Corpuscular Volume 94.9 fL Mean Corpuscular Hemoglobin 30.1 pg Mean Corpuscular Hemoglobin Concent 31.7 g/dl RDW Standard Deviation 45.1 fL RDW Coefficient of Variation 13.0 % Platelet Count 256 K/uL Mean Platelet Volume 9.3 fL Sodium Level 139 mmol/L Potassium Level 4.0 mmol/L Chloride Level 101 mmol/L Carbon Dioxide Level 31 mmol/L Anion Gap 6.0 mmol/L Blood Urea Nitrogen 25 mg/dl Creatinine 1.00 mg/dl Est Creatinine Clear Calc Drug Dose 63.4 ml/min Estimated GFR () 65.6 Estimated GFR (Non- 56.6 BUN/Creatinine Ratio 25.3 Random Glucose 122 mg/dl Calcium Level 8.2 mg/dl Bedside Glucose 150 mg/dl Assessment & Plan S/P RIGHT TOTAL SHOULDER ARTHROPLASTY POD # 1. CHRONIC DIASTOLIC LEFT VENTRICULAR HEART FAILURE Compensated. HYPERTENSION BP this morning 149/72. Continue amlodipine, losartan. CEREBROVASCULAR DISEASE Neuro status stable. COPD Pulmonary status stable. Incentive spirometry. SLEEP APNEA Continue BiPAP. DM TYPE 2 FBS 150. Discharge on usual regimen. DISPOSITION Medically stable for discharge. Internal Medicine follow-up with Dr. Sr. Thank you for this consultation. We will follow the patient with you during their hospital stay. You can reach a member of the [facility] Team 27/01 via pager @ [phone]. You can reach me via cell @ [phone]. . Current Inpatient Medications: Current Inpatient Medications Medications (Trade) Dose Ordered Sig/Jeanette Route Start Time Stop Time Status Last Admin Dose Admin Amlodipine Besylate (Norvasc Tab) 5 mg HS PO 11/14/17 21:00 12/14/17 20:59 11/14/17 20:47 5 MG Aspirin (Ecotrin Tab) 81 mg QAM PO 11/15/17 09:00 12/15/17 08:59 11/15/17 08:35 81 MG Atorvastatin Calcium (Lipitor Tab) 80 mg DAILY PO 11/15/17 09:00 12/15/17 08:59 11/15/17 08:36 80 MG Carbamazepine (Tegretol Tab) 200 mg TID PO 11/14/17 14:00 12/14/17 13:59 11/15/17 08:38 200 MG Diphenhydramine HCl (Benadryl Cap) 25 mg HS PO 11/14/17 21:00 12/14/17 20:59 11/14/17 20:48 25 MG Fexofenadine HCl (Teodora Tab) 180 mg HS PO 11/14/17 21:00 12/14/17 20:59 11/14/17 20:47 180 MG Fluticasone Propionate (Flonase Nasal [place]) 2 sprays HS TANIYA 11/14/17 21:00 12/14/17 20:59 11/14/17 20:45 2 SPRAYS Lorazepam (Ativan Tab) 1 mg HS PO 11/14/17 21:00 12/14/17 20:59 11/14/17 20:45 1 MG Losartan Potassium (coZAAR TAB) 100 mg HS PO 11/14/17 21:00 12/14/17 20:59 11/14/17 20:46 100 MG Montelukast Sodium (Singulair Tab) 10 mg QPM PO 11/14/17 21:00 12/14/17 20:59 11/14/17 20:49 10 MG Spironolactone (Aldactone Tab) 100 mg DAILY PO 11/15/17 09:00 12/15/17 08:59 11/15/17 08:35 100 MG Trazodone HCl (Desyrel Tab) 50 mg HS PO 11/14/17 21:00 12/14/17 20:59 11/14/17 20:46 50 MG Miscellaneous Information (Order Awaiting Action) 1 ea QS N/A 11/14/17 16:00 12/14/17 15:59 Tizanidine HCl (Zanaflex Tab) 4 mg Q8H PRN PO 11/14/17 09:45 12/14/17 09:44 11/14/17 13:34 4 MG Metoclopramide HCl (Reglan Inj) 10 mg Q6H PRN IV 11/14/17 09:45 12/14/17 09:44 Ondansetron HCl (Zofran Inj) 4 mg Q6H PRN IV 11/14/17 09:45 12/14/17 09:44 Acetaminophen 1000 mg/Empty Bag 100 ml @ 400 mls/hr Q8 IV 11/14/17 14:00 11/15/17 13:59 Naloxone HCl (Narcan Inj) 0.1 mg Q2M PRN IV 11/14/17 09:45 12/14/17 09:44 Magnesium Hydroxide (Milk Of Magnesia Susp) 30 ml Q6H PRN PO 11/14/17 09:45 12/14/17 09:44 Bisacodyl (Dulcolax Supp) 10 mg DAILY PRN SD 11/14/17 09:45 12/14/17 09:44 Sodium Biphosphate/ Sodium Phosphate (Fleet Enema) 132 ml DAILY PRN SD 11/14/17 09:45 12/14/17 09:44 Senna (Senokot Tab) 17.2 mg HS PO 11/14/17 21:00 12/14/17 20:59 11/14/17 20:48 17.2 MG Docusate Sodium (coLACE CAP) 100 mg BID PO 11/14/17 21:00 12/14/17 20:59 11/15/17 08:36 100 MG Multivitamins (Multivitamin Tab) 1 tab DAILY PO 11/15/17 09:00 12/15/17 08:59 11/15/17 08:37 1 TAB Hydromorphone HCl (Dilaudid Inj) 1 mg Q2HWA PRN IV 11/14/17 09:45 11/28/17 09:44 11/15/17 05:37 1 MG Hydromorphone HCl (Dilaudid Tab) 2 mg Q4HWA PRN PO 11/14/17 09:45 11/28/17 09:44 11/15/17 08:24 2 MG Insulin Glargine (Lantus Solostar Pen) 15 units Q12 SC 11/14/17 21:00 12/14/17 20:59 11/15/17 08:41 15 UNITS Insulin Aspart (novoLOG ASPART) SLIDING SCALE If C... ACHS SC 11/14/17 12:00 12/14/17 11:59 11/15/17 08:42 3 UNITS Glucose (Glucose 40% Gel) 15-30 GRAMS 15 GRAMS... UD PRN PO 11/14/17 11:45 12/14/17 11:44 Glucose (Glucose Chew Tab) 4-8 Tablets 4 Tabl... UD PRN PO 11/14/17 11:45 12/14/17 11:44 Dextrose (Dextrose 50% 50ML Syringe) 25-50ML 25ML FOR ... UD PRN IV 11/14/17 11:45 12/14/17 11:44 Glucagon (Glucagon Inj) 1 mg UD PRN SQ 11/14/17 11:45 12/14/17 11:44 Carbohydrates (Carbohydrates For Hypoglycemia) 15-30 GRAMS 15 grams if BSG 54-69... UD PRN PO 11/14/17 11:45 12/14/17 11:44 Cefazolin Sodium 2000 mg/Syringe 15 ml @ 3.75 mls/ min Q8H IV 11/14/17 16:00 11/15/17 15:59 11/15/17 07:48 3.75 MLS/MIN Albuterol/ Ipratropium (Duoneb) 3 ml Q4R PRN INH 11/14/17 12:00 12/14/17 11:59 Potassium Chloride (Klor-Con M10) 10 meq QPM PO 11/14/17 21:00 12/14/17 20:59 11/14/17 20:47 10 MEQ Labetalol HCl (Normodyne Tab) 100 mg QAM PO 11/15/17 09:00 12/15/17 08:59 11/15/17 08:37 100 MG Labetalol HCl (Normodyne Tab) 200 mg PM PO 11/14/17 21:00 12/14/17 20:59 11/14/17 20:48 200 MG Furosemide (Lasix Tab) 40 mg QAM PO 11/15/17 09:00 12/15/17 08:59 11/15/17 08:35 40 MG Furosemide (Lasix Tab) 20 mg DAILY@1400 PO 11/14/17 14:00 12/14/17 13:59 11/14/17 13:40 20 MG Potassium Chloride 10 meq/ Sodium Chloride 1,005 ml @ 100 mls/hr Q10H3M IV 11/14/17 13:30 12/14/17 13:29 11/15/17 00:11 100 MLS/HR
--- NOTE | 2017-11-15 23:18 | DISCHARGE SUMMARY ---
DISCHARGE DIAGNOSIS: Primary osteoarthritis of the right shoulder. PROCEDURE: Right total shoulder arthroplasty on 11/14/[address] Edgard Yang. DISCHARGE MEDICATIONS: 1. Dilaudid 2 mg every 4 hours as needed for pain. 2. Percocet 5/325 mg twice a day as needed for pain if Dilaudid is not helping. 3. Albuterol as needed. 4. Norvasc 5 mg daily. 5. Aspirin 81 mg daily. 6. Lipitor 80 mg daily. 7. Invokana 100 mg daily. 8. Tegretol 200 mg 3 times a day. 9. Benadryl 25 mg at night. 10. Teodora 180 mg tablet at night. 11. Breo inhaler 1 puff daily. 12. Flonase 2 sprays at night. 13. Lasix 40 mg daily. 14. Amaryl 4 mg daily. 15. Oxygen 3 L as needed. 16. DuoNeb treatment every 6 hours. 17. Normodyne 200 mg daily. 18. Ativan 1 mg at night. 19. Cozaar 100 mg at night. 20. Singulair 10 mg daily. 21. Potassium 10 mEq daily. 22. Januvia 100 mg daily. 23. Aldactone 100 mg daily. 24. Zanaflex 4 mg every 8 hours as needed. 25. Trazodone 50 mg at night. DISCHARGE INSTRUCTIONS: 1. Right arm sling for 3 weeks. 2. Follow up with Dr. Yang in 2 weeks. 3. Call the office of Dr. Yang with any questions or concerns. HOSPITAL COURSE: Rama is a pleasant 71-year-old female who presented to my office with chronic increasing right shoulder pain. X-rays and clinical examination were diagnostic for primary osteoarthritis of the right shoulder. After failing conservative treatment, she elected to undergo a right total shoulder arthroplasty. On November 14, 2017, she arrived at [facility] and underwent a right shoulder replacement without complication. She had a general anesthetic and a right interscalene nerve block. Postoperatively, she was placed in an arm sling and discharged to general orthopedic floor. Medicine was consulted just for her multiple lung issues. Her hospital course was relatively uneventful. On postop day #1, her H and H were stable at 11.1 and 35.0. Her glucose was 122. Her pain was relatively well controlled with the Dilaudid. She was able to participate well with physical therapy doing hand, wrist, elbow, and pendulum exercises. She was seen again by the medical team and cleared for discharge to home. She is subsequently discharged to home with [facility] with the above instructions.
== END 2017-11-15 10:49 | disposition home or self-care (01) | DRG 483 ==
LOC: C.ACU 04:59 → C.3E 06:00 → ENRESERV 10:18
PROVIDERS: ADMIT Orthopaedic Surgery; ATTEND Orthopaedic Surgery
PROC: 0RRJ0JZ Replacement of Right Shoulder Joint with Synthetic Substitute, Open Approach (ICD-10-PCS; principal; 2017-11-14 07:00)
DX: M19.011 Primary osteoarthritis, right shoulder (principal); I50.32 Chronic diastolic (congestive) heart failure; I25.10 Atherosclerotic heart disease of native coronary artery without angina pectoris; E11.9 Type 2 diabetes mellitus without complications; E78.5 Hyperlipidemia, unspecified; Z86.73 Personal history of transient ischemic attack (TIA), and cerebral infarction without residual deficits; Z79.82 Long term (current) use of aspirin; G47.33 Obstructive sleep apnea (adult) (pediatric); H40.9 Unspecified glaucoma; J44.9 Chronic obstructive pulmonary disease, unspecified; I11.9 Hypertensive heart disease without heart failure; F41.9 Anxiety disorder, unspecified; G50.0 Trigeminal neuralgia

== ENCOUNTER 2018-12-25 06:21 | Inpatient (IN) ==
--- NOTE | 2018-11-17 16:41 | PAT Medication Instructions ---
Medication Instructions Date of Service November 17, 2018 Home Medications albuterol sulfate [Ventolin HFA] 2 puff INHALATION Q6H NEEDED amlodipine 5 mg PO QPM ascorbic acid (vitamin C) 500 mg PO DAILY aspirin 81 mg PO QAM atorvastatin 80 mg PO QAM azelastine-fluticasone 1 spray INTRANASAL QPM baclofen 10 mg PO BID canagliflozin [Invokana] 100 mg PO QPM carbamazepine 200 mg PO TID fexofenadine [Teodora Allergy] 180 mg PO QPM fluticasone propionate [Flonase] 1 spray INTRANASAL QPM furosemide 40 mg PO QAM glimepiride 4 mg PO QAM labetalol 200 mg PO DIRECTED levofloxacin [Levaquin] 500 mg PO DIRECTED linagliptin [Tradjenta] 5 mg PO QAM losartan 100 mg PO QPM metolazone 5 mg PO DIRECTED montelukast 10 mg PO QPM oxycodone-acetaminophen [Percocet] 1 tab PO Q8H NEEDED prednisone 20 mg PO NEEDED spironolactone 100 mg PO QAM trazodone 50 mg PO HS Continue as directed labetalol 200 mg PO DIRECTED levofloxacin [Levaquin] 500 mg PO DIRECTED prednisone 20 mg PO NEEDED ASK your prescriber and surgeon aspirin 81 mg PO QAM DO NOT take the morning of surgery ascorbic acid (vitamin C) 500 mg PO DAILY baclofen 10 mg PO BID furosemide 40 mg PO QAM glimepiride 4 mg PO QAM linagliptin [Tradjenta] 5 mg PO QAM metolazone 5 mg PO DIRECTED spironolactone 100 mg PO QAM Take morning of surgery With a small sip of water, OTHERWISE NOTHING TO EAT OR DRINK AFTER MIDNIGHT: albuterol sulfate [Ventolin HFA] 2 puff INHALATION Q6H NEEDED (if needed; bring to hospital) atorvastatin 80 mg PO QAM carbamazepine 200 mg PO TID oxycodone-acetaminophen [Percocet] 1 tab PO Q8H NEEDED (if needed; stop 4 hours before surgery) Take evening before surgery albuterol sulfate [Ventolin HFA] 2 puff INHALATION Q6H NEEDED (if needed) amlodipine 5 mg PO QPM azelastine-fluticasone 1 spray INTRANASAL QPM baclofen 10 mg PO BID canagliflozin [Invokana] 100 mg PO QPM carbamazepine 200 mg PO TID fexofenadine [Teodora Allergy] 180 mg PO QPM fluticasone propionate [Flonase] 1 spray INTRANASAL QPM losartan 100 mg PO QPM montelukast 10 mg PO QPM oxycodone-acetaminophen [Percocet] 1 tab PO Q8H NEEDED (if needed) trazodone 50 mg PO HS Other Notes If you have any questions please call us at [phone] or [phone] or [phone] or [phone]
--- NOTE | 2018-11-18 12:41 | Anesthesiology Consultation ---
Date of Service November 18, 2018 Assessment & Plan (1) Encounter for pre-operative examination: Chart Review Chart Review: Patient seen in Pre Admission Testing Teaching & Discussion Pre-Anesthesia Teaching/Discussion Notes: Instructed NPO after midnight before surgery, except medications with 15 cc of water. Medication instructions provid ed according to the PAT guidelines. History Surgery Operation Date: 12/25/18 08:30 Proposed Procedures p Left Total Shoulder Replacement - Edgard Yang DO Height/Weight Height: 5 ft 6 in Weight: 105.5 kg Allergies Allergy/AdvReac Type Severity Reaction Status Date / Time clarithromycin Allergy Unknown BURNING Verified 11/12/18 10:41 MOUTH SEASONAL Allergy Unknown seasonal Uncoded 11/12/18 10:41 allergies sinus congestion Medications Home Medications Medication Instructions Recorded Confirmed Last Taken albuterol sulfate [Ventolin HFA] 2 puff INHALATION Q6H PRN 11/12/18 11/12/18 Unknown amlodipine 5 mg PO QPM 11/12/18 11/12/18 Unknown ascorbic acid (vitamin C) [Vitamin 500 mg PO DAILY 11/12/18 11/12/18 Unknown C] aspirin 81 mg PO QAM 11/12/18 11/12/18 Unknown atorvastatin 80 mg PO QAM 11/12/18 11/12/18 Unknown azelastine-fluticasone 1 spray INTRANASAL QPM 11/12/18 11/12/18 Unknown baclofen 10 mg PO BID 11/12/18 11/12/18 Unknown canagliflozin [Invokana] 100 mg PO QPM 11/12/18 11/12/18 Unknown carbamazepine 200 mg PO TID 11/12/18 11/12/18 Unknown fexofenadine [Teodora Allergy] 180 mg PO QPM 11/12/18 11/12/18 Unknown fluticasone propionate [Flonase 1 spray INTRANASAL QPM 11/12/18 11/12/18 Unknown Allergy Relief] furosemide 40 mg PO QAM 11/12/18 11/12/18 Unknown glimepiride 4 mg PO QAM 11/12/18 11/12/18 Unknown labetalol 200 mg PO UD 11/12/18 11/12/18 Unknown levofloxacin [Levaquin] 500 mg PO UD PRN 11/12/18 11/12/18 Unknown linagliptin [Tradjenta] 5 mg PO QAM 11/12/18 11/12/18 Unknown losartan 100 mg PO QPM 11/12/18 11/12/18 Unknown metolazone 5 mg PO UD PRN 11/12/18 11/12/18 Unknown montelukast 10 mg PO QPM 11/12/18 11/12/18 Unknown oxycodone-acetaminophen [Percocet] 1 tab PO Q8H PRN 11/12/18 11/12/18 Unknown prednisone 20 mg PO UD PRN 11/12/18 11/12/18 Unknown spironolactone 100 mg PO QAM 11/12/18 11/12/18 Unknown trazodone 50 mg PO HS 11/12/18 11/12/18 Unknown Past Medical History Medical History Anxiety (Resolved) Depression (Resolved) Asthma Reports rarely uses PRN INH CKD (chronic kidney disease) stage 3, GFR 30-59 ml/min Congestive heart failure 2/2 infection Diabetes mellitus, type 2 NIDDM GERD (gastroesophageal reflux disease) Glaucoma Hearing deficit Left ear - no hearing aids History of carotid stenosis s/p BL endarterectomy History of gastric ulcer History of trigeminal neuralgia s/p surgery Hyperlipidemia Hypertension Osteoarthritis 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 Stroke 2004 - pt w/ intermittent vertigo, no other deficits. on ASA only. Exercise / Class Metabolic Activity III < 4 Walking/Shop/Light housework (Limted due to back and knee pain. Able to climb FOS. Denies CP. Denies SOB unless she walks to far. ) Past Surgical History Surgical History History of bilateral carotid endarterectomy History of cholecystectomy History of colonoscopy w/ polypectomy History of esophagogastroduodenoscopy (EGD) History of surgery Trigeminal decompression 1990s History of tonsillectomy and adenoidectomy History of tooth extraction History of total shoulder replacement Rt 11/14/17 - Elective Glidescope #3 due to Grade 3 View and difficulty visualizing cords, ETT #7.0. Patient re-positioned twice. A-Line placed. Past Anesthesia History No Hx of Anesthesia Complications and No Family Hx of Anesthesia Complications History of PONV No Hx of PONV and No Hx of Motion Sickness Social History Smoking Status: Former smoker tobacco type: cigarettes Smoking cigarettes per day: ~1ppd x 42 years Do You Dip or Chew Tobacco: No Smoking End Date: quit 04/21/2012 Hx Alcohol Use: Yes alcohol intake frequency: holidays/special occasions only Hx Substance Use: No substance use type: does not use Review of Systems Patient denies chest pain, shortness of breath, cough, wheezing, palpitations. +JAMES (if she walks a long distance) +Joint Pain (Back, Knees, Shoulder, Feet) +Acid Reflux (rare) Physical Exam Vital Signs BP: 135/75 P: 72 R: 18 T: 98.4 SPO2: 97% on RA Constitutional + morbidly obese ENMT Thyromental Distance: > or= 3.5 Finger Breadths (4) Mallampati Class: II Neck + thick neck; neck extension not limited Respiratory normal respiratory effort Auscultation: + wheezes (expiratory wheezes noted throughout) Cardiovascular Rate/Rhythm: regular rate and regular rhythm Heart Sounds: no murmur Vessels: + carotid bruit (Left carotid bruit present) Neurologic moves all extremities Psychiatric Orientation: alert and oriented x 3 Testing Electrocardiogram Date: 11/18/18 Findings: + NSR @ (69) When compared with ECG of 10/13/17, Nonspecific T wave abnormality improved in lateral leads Chest X-Ray Date: 11/18/18 Findings: + NAD FINDINGS: No pneumothorax. No pleural effusions. The heart remains top normal in size. No focal lung consolidations to suggest pneumonia. No evidence for pulmonary edema. There is a right shoulder prosthesis. Slight prominence of interstitial markings which may be technical. Mild degenerative disc disease within the thoracic spine. IMPRESSION: No acute process. Echocardiogram Date: 10/30/13 LV Function: normal Normal LV chamber size with moderate concentric LVH. Normal LV systolic function, EF 60-65% No segmental left ventricular wall motion abnormalities are noted. Grade II diastolic dysfunction. No significant valvular pathology. Mild left atrial enlargement. Stress Test Date: 09/07/15 Type: DSE Findings: + did not achieved max HR Resting EF: 60-65% Suboptimal stress test due to inadequate maximum heart rate. Maximum HR was 77bpm Maximum HR achieved was 77bpm EF = 60-65% Other Testing Carotid Artery Duplex Examination 06/15/14 Impression: - Right carotid artery duplex examination indicates evidence of a less than 50% stenosis of the internal carotid artery. The right internal carotid artery endarterectomy appears patent. - Left carotid artery duplex examination indicates evidence of a less than 50% stenosis of the internal carotid artery. The left internal carotid artery endarterectomy appears patent. Laboratory Results 11/18/18 13:22 11/18/18 12:49 PT 10.4 Seconds (9.0-12.0) 11/18/18 13:22 INR 1.0 (0.9-1.1) 11/18/18 13:22 APTT 25.5 Seconds (21.0-31.0) 11/18/18 13:22 6.6 % (4.5-5.6) H 11/18/18 13:22 Blood Type O Negative 11/18/18 13:22 Antibody Screen NEGATIVE 11/18/18 13:22 Due to system error, not all headings are pulling through on above chart. NOTE: HgBA1C is 6.6%
--- NOTE | 2018-11-18 13:51 | XRay Report ---
XR chest Pre-admission PA/Lat HISTORY: Preop. COMPARISON: Chest 09/06/2015. FINDINGS: No pneumothorax. No pleural effusions. The heart remains top normal in size. No focal lung consolidations to suggest pneumonia. No evidence for pulmonary edema. There is a right shoulder prost hesis. Slight prominence of interstitial markings which may be technical. Mild degenerative disc dise ase within the thoracic spine. IMPRESSION: No acute process. Electronically signed by: Fawad Holm M.D. 11/18/2018 1:50 PM
[2018-11-18 14:41] LABS: Basophils # (auto) 0.05 K/uL (0-0.2); Basophils % (auto) 0.4 %; Eosinophils # (auto) 0.14 K/uL (0-0.5); Eosinophils % (auto) 1.2 %; Hematocrit (blood only) 38.5 % (37-47); Immature Granulocytes # (auto) 0.02 K/uL (0.00-0.02); Immature Granulocytes % (auto) 0.2 %; Lymphocytes # (auto) 3.13 K/uL (1.2-3.4); Lymphocytes % (auto) 26.6 %; Mean Corpuscular Hgb Conc 33.8 g/dL (32-36); Mean Corpuscular Volume 92.1 fL (80-100); Mean Platelet Volume 10.1 fL (7.4-10.4); Monocytes # (auto) 0.95 K/uL (0.11-0.59); Monocytes % (auto) 8.1 %; Neutrophils # (auto) 7.46 K/uL (1.4-6.5); Neutrophils % (auto) 63.5 %; Platelet Count 284 K/uL (130-400); RDW Coefficient of Variation 12.5 % (11.5-14.5); RDW Standard Deviation 42.3 fL (36.4-46.3); Red Blood Count 4.18 M/uL (4.2-5.4); White Blood Count 11.75 K/uL (4.8-10.8)
[2018-11-18 14:48] LABS: BUN Creatinine Ratio 24.8 (10-20); Calcium 9.3 mg/dl (8.5-10.1); Est GFR (African American) 68.5; Est GFR (Non-African American) 59.1; Potassium 3.6 mmol/L (3.5-5.1)
[2018-11-18 14:54] LABS: Partial Thromboplastin Ratio 0.9; Partial Thromboplastin Time 25.5 Seconds (21.0-31.0); Prothrombin Time 10.4 Seconds (9.0-12.0)
[2018-11-18 15:05] LABS: Estimated Average Glucose 143 mg/dl; Hemoglobin A1C 6.6 % (4.5-5.6)
--- NOTE | 2018-12-24 16:40 | History & Physical Report ---
Date of Service December 24, 2018 Assessment & Plan (1) Osteoarthritis of left shoulder: We will proceed with a left total shoulder arthroplasty. Postoperatively she will be placed in a sling and kept overnight in the hospital for postoperative medical management. She plans to use [facility] upon discharge. Present on Admission?: Yes History of Present Illness Chief Complaint: Primary osteoarthritis of the left shoulder Primary Care Provider: Ferny Sr DO Rama is a very pleasant 73-year-old female who presented my office with complaints of bilateral shoulder pain. X-rays and clinical examination were diagnostic for primary osteoarthritis of both shoulders. I did a right total shoulder arthroplasty on her in November 2017. She did very well with that. Unfortunately she is having similar symptoms in her left shoulder. After failing conservative treatment, she has elected proceed with a left total shoulder arthroplasty. Allergies Allergy/AdvReac Type Severity Reaction Status Date / Time clarithromycin Allergy Unknown BURNING Verified 11/12/18 10:41 MOUTH SEASONAL Allergy Unknown seasonal Uncoded 11/12/18 10:41 allergies sinus congestion Home Medications Home Medications Medication Instructions Recorded Confirmed Type albuterol sulfate [Ventolin HFA] 2 puff INHALATION Q6H PRN 11/12/18 11/12/18 History amlodipine 5 mg PO QPM 11/12/18 11/12/18 History ascorbic acid (vitamin C) [Vitamin 500 mg PO DAILY 11/12/18 11/12/18 History C] aspirin 81 mg PO QAM 11/12/18 11/12/18 History atorvastatin 80 mg PO QAM 11/12/18 11/12/18 History azelastine-fluticasone 1 spray INTRANASAL QPM 11/12/18 11/12/18 History baclofen 10 mg PO BID 11/12/18 11/12/18 History canagliflozin [Invokana] 100 mg PO QPM 11/12/18 11/12/18 History carbamazepine 200 mg PO TID 11/12/18 11/12/18 History fexofenadine [Teodora Allergy] 180 mg PO QPM 11/12/18 11/12/18 History fluticasone propionate [Flonase 1 spray INTRANASAL QPM 11/12/18 11/12/18 History Allergy Relief] furosemide 40 mg PO QAM 11/12/18 11/12/18 History glimepiride 4 mg PO QAM 11/12/18 11/12/18 History labetalol 200 mg PO UD 11/12/18 11/12/18 History levofloxacin [Levaquin] 500 mg PO UD PRN 11/12/18 11/12/18 History linagliptin [Tradjenta] 5 mg PO QAM 11/12/18 11/12/18 History losartan 100 mg PO QPM 11/12/18 11/12/18 History metolazone 5 mg PO UD PRN 11/12/18 11/12/18 History montelukast 10 mg PO QPM 11/12/18 11/12/18 History oxycodone-acetaminophen [Percocet] 1 tab PO Q8H PRN 11/12/18 11/12/18 History prednisone 20 mg PO UD PRN 11/12/18 11/12/18 History spironolactone 100 mg PO QAM 11/12/18 11/12/18 History trazodone 50 mg PO HS 11/12/18 11/12/18 History Past Med/Surg History Medical History Anxiety (Resolved) Depression (Resolved) Asthma Reports rarely uses PRN INH CKD (chronic kidney disease) stage 3, GFR 30-59 ml/min Congestive heart failure 2/2 infection Diabetes mellitus, type 2 NIDDM GERD (gastroesophageal reflux disease) Glaucoma Hearing deficit Left ear - no hearing aids History of carotid stenosis s/p BL endarterectomy History of gastric ulcer History of trigeminal neuralgia s/p surgery Hyperlipidemia Hypertension Osteoarthritis 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 Stroke 2004 - pt w/ intermittent vertigo, no other deficits. on ASA only. Surgical History History of bilateral carotid endarterectomy History of cholecystectomy History of colonoscopy w/ polypectomy History of esophagogastroduodenoscopy (EGD) History of surgery Trigeminal decompression 1990s History of tonsillectomy and adenoidectomy History of tooth extraction History of total shoulder replacement Rt 11/14/17 - Elective Glidescope #3 due to Grade 3 View and difficulty visualizing cords, ETT #7.0. Patient re-positioned twice. A-Line placed. Social History Preferred Language: Wolof Communication Ability: Effective Mirror Inspector Required: No Beliefs That Will Affect Care: None Current Living Situation: Spouse Other Information That Helps Us Care for You: No Feels Safe at Home: Yes Safety Concerns: Feels Safe At This Time Smoking Status: Former smoker Tobacco Type: cigarettes Cigarettes Per Day: ~1ppd x 42 years Do You Dip or Chew Tobacco: No Smoking End Date: quit 04/21/2012 Second Hand Exposure: Yes (pervious exposure - quit 03/2018) Tobacco Cessation Education Requested by Patient: No Hx Alcohol Use: Yes Hx Substance Use: No Review of Systems All systems reviewed & are unremarkable except as noted in HPI & below Physical Exam Constitutional: WD/WN, vitals as above Eyes: PERRL, conjunctivae normal, anicteric sclerae ENMT: external ear and nose normal, oropharynx normal Neck: trachea midline, no thyromegaly Respiratory: normal respiratory effort Cardiovascular: RRR, no murmur, no edema Gastrointestinal (Abdomen): normal bowel sounds, soft, nontender, no hepatosplenomegaly Musculoskeletal: Physical examination of the left shoulder reveals decreased range of motion and crepitis throughout. There is good strength with full can testing and external rotation. There is tenderness palpation along the anterior glenohumeral joint line. The right upper extremity is neurovascularly intact. Psychiatric: A+Ox3, euthymic affect Results & Data Diagnostic Findings Radiographs of the left shoulder show osteoarthritis of the glenohumeral joint. There is joint space narrowing, osteophyte formation, and [id number] articulation.
[~2018-12-25 06:21] MED LIST changes: +ACETAMINOPHEN 500 MG TAB PO SCH; -AMLO-110 PO; -ASCO500T3 PO; -ASPCH81X PO; -ATOR-26 PO; -ATV/1 PO; -CANA1TAB PO; -CARB200T3 PO; +CEFAZOLIN 2000MG 2,000 MG/15 ML SYR IV SCH; -DIPH25CA65 PO; +FAMOTIDINE 20 MG TAB PO SCH; -FEXO1TAB49 PO; -FLUT0.15 NAE; -FLUT1INH INH; -FRS/40 PO; +GABAPENTIN 300 MG PO SCH; -GLIM4TAB PO; -LABE1TAB28 PO; -LOSA1TAB38 PO; +LR 500ML BOLUS IV SCH; +LR 60ML/HR IV SCH; -MENT4GEL TOP; -MONT1TAB3 PO; -OXGN; -OXYC-57 PO; -POTA10TA PO; -RESCUE; +ROPIVACAINE 0.5% HCL/PF 150 MG, BUPIVACAINE 0.5% MPF 30 ML, EPINEPHrine 30MG/30ML (OR U... INFIL SCH; -SITA100T3 PO; -SPIR100T PO; -TIZA4CAP PO; +TRANEXAMIC ACID 1,000 MG **IV Pre-op IV SCH; -TRAZ50TA35 PO; -VNTHFA/IN INH; -[UNRECOGNIZED DRUG - OTHER] TOP; -[UNRECOGNIZED DRUG - REMARK] OPB
--- OUTSIDE RECORDS SUMMARY | 2018-12-25 06:24 | External Medical Summary | Continuity of Care Document ---
:1945 Author Name Aydin Brown, Provider Address Unavailable Unavailable , Care Team Providers Name Role Phone Leslie Brown, Veronique Parsons Unavailable [email or web address] Rosas HANSON Unavailable Unavailable Unavailable Unavailable Unavailable Assessments Assessed Problems:Intubation granuloma, initial encounter Problems Former smoker (V15.82) (Z87.891) Diabetes mellitus (250.00) (E11.9) Asthma (493.90) (J45.909) Arthritis (716.90) (M19.90) Glaucoma (365.9) (H40.9) Visit for pre-operative examination (V72.84) (Z01.818) Malignant melanoma of skin (172.9) (C43.9) Hypertension (401.9) (I10) 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) (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) Encounter for routine gynecological examination (V72.31) (Z0 1.419) Sleep apnea (780.57) (G47.30) Sudden hearing loss (388.2) (H91.20) Benign colonic polyp (211.3) (K63.5) Obesity (278.00) (E66.9) Allergies and Adverse Reactions Biaxin TABS (Allergy) Medications Lisinopril TABS Refills: 0 Lipitor TABS Refills: 0 Zetia TABS Refills: 0 Vitamin D CAPS Refills: 0 Amitriptyline HCl TABS Refills: 0 Plavix TABS Refills: 0 Teodora TABS Refills: 0 Spironolactone TABS Refills: 0 Toprol XL TB24 Refills: 0 Furosemide TABS Refills: 0 NIFEdipine TBCR Refills: 0 Vitamin C TABS Refills: 0 TEGretol TABS Refills: 0 Anacin TBEC Refills: 0 Vicodin HP TABS Refills: 0 methylPREDNISolone 4 MG Oral Tablet Therapy Pack; TAKE DIRECTED. PENELOPE Rosenthal Start: 11-Dec-2017 Quantity: 1 21 Tablet Pack Refills: 0 Omeprazole 20 MG Oral Capsule Delayed Re lease; 1 CAPSULE BY MOUTH 30 MINUTES BEFORE BREAKFAST AND DINNER PENELOPE Rosenthal Start: 11-Dec-2017 Quantity: 1 90 Capsule Bottle Refills: 5 Calcium 5936-9361 MG-UNIT Kevin Mohr t: 05-Sep-2010 Refills: 0 Procedures History of Tonsillectomy With Adenoidectomy Status: Completed History of Arthrocentesis Aspiration Of Ganglion Cyst Of Wri st Status: Completed History of Gallbladder Surgery Status: C ompleted History of Dilation And Curettage Status : Completed History of Brain Surgery Status: Complet ed History of Cervical Conization Loop Electrode Excision Status: Completed History of abnormal Pap smear Status: Co mpleted History of Shoulder Surgery Status: Comp leted History of Carotid Artery Catheterization Status: Completed History of Cholecystotomy Status: Comple sallie Immunizations Immunizations not documented Family History Mother Family history of Acute Myocardial Infarction (V17.3) Status : Active Family history of Hypertension (V17.49) Status: Active Father Family history of Hypertension (V17.49) Status: Active Brother Family history of Hypertension (V17.49) Status: Active Unknown Family Member No family history of bleeding disorder Status: Active C omments: Family History (V49.89) (Z78.9) Social History - Smoking Status Former smoker Plan of Treatment Planned Observations Planned Goals not documented Results No Known Results Results not documented Encounters Appointment; Vi Rosenthal PA-C 11-Dec-2017 14:40 Encounter Diagnosis: Problem not documented Appointment; Vi Rosenthal PA-C 09-Jan-2018 11:00 Encounter Diagnosis: Problem not documented
[2018-12-25] MEDS ORDERED: TRANEXAMIC ACID 1,000 MG **IV Intra-op IV SCH (06:30)
--- NOTE | 2018-12-25 06:36 | History & Physical Bridge Note ---
Date of Service December 25, 2018 History & Physical Bridge Note I have examined the patient, reviewed the History & Physical and in the interval since the performance of the History & Physical I have noted the following changes of clinical significance: no changes noted
[2018-12-25] MEDS ORDERED: BUPIVACAINE 0.5 % 5 MG/1 ML PF 10ML VIAL ONE (06:58)
[2018-12-25] MEDS ORDERED: ORTHO JOINT ANESTHETIC ONE (07:04)
[2018-12-25] MEDS ORDERED: fentaNYL citrate 100 MCG/2 ML VIAL ONE (07:11)
[2018-12-25] MEDS ORDERED: MIDAZOLAM HCL 1 MG/ML 2ML VIAL ONE (07:12)
[2018-12-25] MEDS ORDERED: PROPOFOL IV EMULSION 10 MG/ML 20 ML VIAL IV ONE (07:16)
[2018-12-25] MEDS ORDERED: ROCURONIUM BROMIDE 10 MG/ML 5 ML VIAL ONE (07:16)
[2018-12-25] MEDS ORDERED: LIDOCAINE HCL 2% 2 ML VIAL/AMP(20MG/ML) INFIL ONE (09:01)
[2018-12-25] MEDS ORDERED: ATROPINE SULFATE 0.1 MG/ML 10ML SYR IV PRN (09:34)
[2018-12-25] MEDS ORDERED: ONDANSETRON INJ 2 MG/ML 2 ML VIAL IV PRN ×2 (09:34→11:39)
[2018-12-25] MEDS ORDERED: LABETALOL HCL IV 5 MG/ML 20ML IV PRN (09:34)
[2018-12-25] MEDS ORDERED: HYDROmorphone INJ 0.5 MG/0.5 ML SYR IV PRN ×2 (09:34→11:39)
[2018-12-25] MEDS ORDERED: ePHEDrine sulfate 50 MG/ML SYR ONE (09:36)
--- NOTE | 2018-12-25 10:17 | Operative Report ---
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 X-rays and clinical examination were diagnostic for primary ost eoarthritis of both shoulders. She underwent a right total shoulder arthroplasty year ago and did very well with that. Unfortunately she is having a lot of left shoulder pain. Has elected to undergo a left total shoulder arthroplasty Description of Procedure Implants used: I used a Biomet Comprehensive total shoulder arthroplasty system with a size 12 press fit mini humeral stem, a size 42 x 18 eccentric humeral head, and a small size glenoid with a Regenerex peg. The glenoid was cemented in place with Palacos G cement. The patient arrived at [facility] for the above procedure. There were seen in the preoperative holding area and the operative extremity was identified and signed. They were given a preoperative antibiotic and an interscalene nerve block. They were taken back to the operating room, laid on table in supine position, and put under general anesthesia. They were then put into the beachchair position. The shoulder was then prepped and draped in sterile fashion. A timeout was done and the patient in the operative extremity was properly identified. A deltopectoral approach was used. Dissection was taken down through the fascia and the deltoid was retracted laterally and the conjoined tendon was retracted medially. The anterior shoulder was exposed. The long head of the biceps tendo n was tenodesed to the upper border of the pectoralis major. The subscapularis was then released off the lesser tuberosity with a centimeter of cuff tissue remaining. The inferior capsule was released and the humeral head was dislocated. The rotator cuff was inspected and intact. A canal finding reamer was sent down the center of the humeral canal. Sequential reaming up to a size 12 reamer was done. Offset reamer a proximal humeral resection guide was placed. The proximal humerus was resected at 135 of inclination and 30 of retroversion. Inferior osteophytes were then removed and the glenoid was exposed. Time was spent doing an appropriate labral release. The glenoid measured to be a size small. A 3.2 mm Steinmann pin was placed in the central hole of the glenoid vault pin guide. The glenoid was then reamed with a propeller reamer. The central post cutter was then used to prepare for the central boss. The cannulated peripheral peg drill guide was then placed and 3 peg holes were drilled. The final size small glenoid was then cemented in place with Palacos G cement. Surrounding soft tissues were then injected with 100 cc of an orthopedic pain control cocktail. Once cement had dried the proximal humerus was once again exposed. Sequential broaching of the humerus up to a size 12 broach was done. Off that broach a size 42 x 18 eccentric humeral head was trialed. The shoulder was then reduced, brought through a full range of motion and felt to be stable. The shoulder was then dislocated and the broach was removed. The final size 12 mini humeral stem implant was then impacted into place. A size 42 x 18 eccentric humeral head was then impacted onto the humeral stem. The shoulder was then reduced and once again brought through a full range of motion and felt to be stable. The subscapularis was then tenodesed back to the lesser tuberosity with transosseous FiberWire sutures and side to side sutures with the arm in 45 of external rotation. 2 sutures were placed in the lateral rotator interval. A dilute betadyne lavage was then done for 3 minutes. The joint was then irrigated with normal saline solution. Hemostasis was obtained. The skin was then closed with 2-0 Vicryl, 3-0V lock suture, and mayra. A soft dressing was placed as well as a regular arm sling. The patient was then extubated and transferred to a hospital bed. There were taken to the postanesthesia care unit in stable condition. The tolerated the procedure well. I attest to the content of the Intraoperative Record and any orders documented therein. Any exceptions are noted below.
--- NOTE | 2018-12-25 11:09 | Anesthesiology Progress Note ---
Date of Service December 25, 2018 Anesthesia Post Procedure Vital Signs Vital Signs: Temp Pulse Resp BP Pulse Ox 12/25/18 11:05 36.4 C L 67 17 134/61 93 12/25/18 10:55 36.0 C L 66 14 137/71 93 12/25/18 10:45 36.0 C L 74 18 127/49 L 93 12/25/18 10:35 36.0 C L 67 13 148/68 H 96 12/25/18 10:29 36.0 C L 69 18 149/77 H 93 12/25/18 07:02 36.7 C 77 18 155/74 H 97 Pain Intensity Left Shoulder: Pain Intensity: 5 Transfer of Care Handoff Completed per policy Notes Mental Status: alert / awake / arousable Patient Amnestic to Procedure: Yes Nausea / Vomiting: adequately controlled Pain: adequately controlled Airway Patency, RR, SpO2: stable & adequate BP & HR: stable & adequate Hydration State: stable & adequate Anesthetic Complications: no major complications apparent
[2018-12-25] MEDS ORDERED: MAGNESIUM HYDROXIDE SUSP 30 ML UDC PO PRN (11:39)
[2018-12-25] MEDS ORDERED: NALOXONE HCL 0.4 MG/1 ML VIAL/CARP IV PRN (11:39)
[2018-12-25] MEDS ORDERED: BISACODYL 10 MG SUPP PR PRN (11:39)
[2018-12-25] MEDS ORDERED: OXYCODONE HCL IR 5 MG TAB (IMMEDIATE RELEASE) PO PRN (11:39)
[2018-12-25] MEDS ORDERED: ALBUTEROL HFA 8 GM INHALER INH PRN (11:39)
[2018-12-25] MEDS ORDERED: METOCLOPRAMIDE HCL INJ 5 MG/ML 2 ML VIAL IV PRN (11:39)
[2018-12-25] MEDS ORDERED: PHARMACY GLYCEMIC MGMT CONSULT PRN (11:51)
[2018-12-25] MEDS ORDERED: LABETALOL HCL 100 MG TAB PO ONE (12:00)
[2018-12-25] MEDS ORDERED: INSULIN GLARGINE SOLOSTAR 100 UNITS/ML 3 ML PEN SC ONE (13:15)
[2018-12-25] MEDS: INSULIN ASPART 100 UNITS/ML 3 ML PEN SC SCH ×3 (13:23→21:11)
[2018-12-25] MEDS: SODIUM CHLORIDE 0.9% 1000ML 1,000 ML IV SCH ×2 (13:27→22:51)
[2018-12-25] MEDS: FUROSEMIDE 40 MG TAB PO SCH (13:34)
[2018-12-25] MEDS: SPIRONOLACTONE 100 MG TAB PO SCH (13:34)
[2018-12-25] MEDS: ATORVASTATIN 40 MG TAB PO SCH (13:35)
[2018-12-25] MEDS: BACLOFEN 10 MG TAB PO SCH ×2 (13:35→21:04)
[2018-12-25] MEDS: DOCUSATE SODIUM 100 MG CAP PO SCH ×2 (13:35→21:06)
[2018-12-25] MEDS: MULTIVITAMIN TAB PO SCH (13:35)
[2018-12-25] MEDS: ASPIRIN 81 MG ECTAB PO SCH (13:36)
[2018-12-25] MEDS: carBAMazepine 200 MG TABLET PO SCH ×3 (13:41→21:03)
[2018-12-25] MEDS: KETOROLAC TROMETHAMINE 15 MG/ML VIAL IV SCH ×3 (13:42→23:03)
[2018-12-25] MEDS: ACETAMINOPHEN 500 MG TAB PO SCH ×2 (13:42→21:04)
--- NOTE | 2018-12-25 14:21 | Pharmacy Report ---
Glycemic Control Consultation - Date of Service December 25, 2018 - Scope Scope: Glycemic Pharmacist consulted by Dr Yang on 12-25 for glycemic control and to write orders per [facility] inpatient glycemic control protocol - Objective Weight: 104.961 kg Accuchecks BSG (last 24hrs): 12/25/18 12/25/18 12/25/18 07:03 10:33 11:56 POC Glucose 135 H 163 H 165 H HbA1c: Hemoglobin A1c 6.6 % (4.5-5.6) H 11/18/18 13:22 - Recent Pertinent Medications Outpatient Anti-diabetic Regimen: * invokana 100 mg qam, glimepiride 4 mg qam, linagliptan 5 mg qam * A1c = 6.6 % 11/18/18 Risk Factors for Insulin Resistance: * Steroids: ortho (containing dex) * Recent Surgery: s/p shoulder replacement * Diet: T2DM - Assessment & Plan Assessment & Plan: ASSESSMENT: * 73 year old female now s/p shoulder replacement. PMHx significant for type 2 diabetes (orals at home), htn, GERD, hld, anxiety * Patient did receive topical steroids in OR (ortho) - with patient also on multiple oral agents at home anticipate patient needing both basal bolus insulin postop * Lunchtime BSG trending up to 165 mg/dL - will add Lantus x 1. Will reevaluate tomorrow if more Lantus necessary PLAN FOR INPATIENT GLYCEMIC CONTROL: * Holding outpatient oral diabetes medications * Basal insulin * Lantus 20 units x 1 (~0.2 U/kg) * Bolus insulin * NovoLog per scale ACHS or Q6hrs while NPO * Goal Range: Low 120 mg/dL - High 160 mg/dL * Correction Factor: 15 mg/dL/unit * Nutritional / Prandial insulin per carb ratio of 1 unit per 5 grams CHO consumed * Please note that the plan above was derived based on current level of insulin resistance and hospital stress. These recommendations are appropriate for inpatient admission only. Plan of care upon discharge will need to be reassessed to avoid potential outpatient hypo/hyperglycemia. Thank you.
[2018-12-25] MEDS ORDERED: GLUCAGON FOR INJ 1 MG VIAL IM PRN (14:30)
[2018-12-25] MEDS ORDERED: GLUCOSE 10 TABS/TUBE PO PRN (14:30)
[2018-12-25] MEDS ORDERED: GLUCOSE 40% GEL 15 GM TUBE PO PRN (14:30)
[2018-12-25] MEDS ORDERED: CARBOHYDRATES FOR HYPOGLYCEMIA PO PRN (14:30)
[2018-12-25] MEDS ORDERED: DEXTROSE 50% 50 ML SYRINGE IV PRN (14:30)
--- NOTE | 2018-12-25 14:48 | XRay Report ---
XR shoulder LT min 2V routine CLINICAL HISTORY: Post shoulder surgery postoperative evaluation COMPARISON: None. DISCUSSION: Anatomic alignment post total left shoulder arthroplasty. Good contact between prosthetic and underlying bone. Expected postoperative soft tissue change IMPRESSION: Anatomic alignment post left shoulder arthroplasty. The above report was generated using voice recognition software. It may contain grammatical, syntax or spelling errors. Electronically signed by: Reginaldo Mary M.D. 12/25/2018 2:47 PM
[2018-12-25] MEDS: DYMISTA~ORDER AWAITING ACTION SCH ×2 (17:10→23:05)
[2018-12-25] MEDS: CEFAZOLIN 2000MG 2,000 MG/15 ML SYR IV SCH ×2 (17:11→23:00)
[2018-12-25] MEDS ORDERED: FEXOFENADINE HCL 180 MG TAB PO SCH (21:00)
[2018-12-25] MEDS ORDERED: TRAZODONE HCL 50 MG TAB PO SCH (21:00)
[2018-12-25] MEDS ORDERED: LABETALOL HCL 200 MG TAB PO SCH (21:00)
[2018-12-25] MEDS ORDERED: SENNA 8.6 MG TAB PO SCH (21:00)
[2018-12-25] MEDS ORDERED: AMLODIPINE BESYLATE 5 MG TAB PO SCH (21:00)
[2018-12-25] MEDS ORDERED: FLUTICASONE PROPIONATE NA SPR 16 GM BTL NAE SCH (21:00)
[2018-12-25] MEDS ORDERED: LOSARTAN POTASSIUM 50 MG TAB PO SCH (21:00)
[2018-12-25] MEDS ORDERED: MONTELUKAST SODIUM 10 MG TABLET PO SCH (21:00)
[2018-12-26] MEDS: INSULIN ASPART 100 UNITS/ML 3 ML PEN SC SCH ×3 (00:06→08:59)
[2018-12-26] MEDS: ACETAMINOPHEN 500 MG TAB PO SCH (05:46)
[2018-12-26] MEDS: KETOROLAC TROMETHAMINE 15 MG/ML VIAL IV SCH (05:46)
[2018-12-26 06:56] LABS: Basophils # (auto) 0.02 K/uL (0-0.2); Basophils % (auto) 0.2 %; Eosinophils # (auto) 0.17 K/uL (0-0.5); Eosinophils % (auto) 1.5 %; Hematocrit (blood only) 33.7 % (37-47); Hemoglobin 10.8 g/dL (12.0-16.0); Immature Granulocytes # (auto) 0.03 K/uL (0.00-0.02); Immature Granulocytes % (auto) 0.3 %; Lymphocytes # (auto) 2.54 K/uL (1.2-3.4); Lymphocytes % (auto) 22.5 %; Mean Corpuscular Volume 93.6 fL (80-100); Mean Platelet Volume 10.2 fL (7.4-10.4); Monocytes # (auto) 0.99 K/uL (0.11-0.59); Monocytes % (auto) 8.8 %; Neutrophils # (auto) 7.53 K/uL (1.4-6.5); Neutrophils % (auto) 66.7 %; Platelet Count 216 K/uL (130-400); RDW Coefficient of Variation 12.4 % (11.5-14.5); RDW Standard Deviation 42.3 fL (36.4-46.3); White Blood Count 11.28 K/uL (4.8-10.8)
[2018-12-26 07:15] LABS: BUN Creatinine Ratio 23.4 (10-20); Calcium 8.4 mg/dl (8.5-10.1); Creatinine Clr Calc Pharmacy 45.1 ml/min; Est GFR (African American) 44.6; Est GFR (Non-African American) 38.5; Potassium 4.1 mmol/L (3.5-5.1)
[2018-12-26] MEDS: DOCUSATE SODIUM 100 MG CAP PO SCH (08:13)
[2018-12-26] MEDS: ASPIRIN 81 MG ECTAB PO SCH (08:13)
[2018-12-26] MEDS: MULTIVITAMIN TAB PO SCH (08:14)
[2018-12-26] MEDS: ATORVASTATIN 40 MG TAB PO SCH (08:14)
--- NOTE | 2018-12-26 08:14 | Orthopedic Progress Note ---
Date of Service December 26, 2018 Assessment & Plan (1) Osteoarthritis of left shoulder: Overall she is doing very well. She is not having too much pain in the left shoulder. She will be seen by physical therapy this morning to do range of motion exercises. She will be discharged home later this morning. She plans to use [facility] upon discharge. She will follow-up with orthopedics in 2 weeks. Present on Admission?: Yes Subjective Rama was seen and examined at bedside this morning. Overall she is doing very well. She is not having much pain in the left shoulder. She is happy with her progress thus far. She was able to get some sleep last night. She has no complaints. Physical Exam Musculoskeletal: On physical examination of the left shoulder, the dressing is clean and dry. She is wearing her sling as instructed. Her radial, median, and ulnar nerves are checked and intact at the wrist. Her axillary nerve was not checked yet. Results & Data Vital Signs (Past 12 Hours) Vital Signs Temp Pulse Resp BP Pulse Ox 12/26/18 07:07 36.4 C L 53 L 16 136/77 94 12/26/18 03:44 37.0 C 61 16 149/76 H 92 12/25/18 22:54 36.4 C L 69 18 143/80 H 90 12/25/18 21:19 65 151/79 H 91 Laboratory Results H & H 11/18/18 12/26/18 Range/Units 13:22 06:31 Hgb 13.0 10.8 L (12.0-16.0) g/dL Hct 38.5 33.7 L (37-47) % Coagulation 11/18/18 Range/Units 13:22 INR 1.0 (0.9-1.1) Diagnostic Findings Postoperative x-rays of the left shoulder show the prosthesis to be in anatomic alignment without any evidence of fracture, dislocation, or loosening.
[2018-12-26] MEDS: SPIRONOLACTONE 100 MG TAB PO SCH (08:16)
[2018-12-26] MEDS: FUROSEMIDE 40 MG TAB PO SCH (08:16)
[2018-12-26] MEDS: BACLOFEN 10 MG TAB PO SCH (08:16)
[2018-12-26] MEDS: carBAMazepine 200 MG TABLET PO SCH (08:16)
--- NOTE | 2018-12-26 08:16 | Discharge Summary ---
Date of Service December 26, 2018 Admission HPI Per Admitting Provider Rama is a very pleasant 73-year-old female who presented my office with complaints of bilateral shoulder pain. X-rays and clinical examination were diagnostic for primary osteoarthritis of both shoulders. I did a right total shoulder arthroplasty on her in November 2017. She did very well with that. Unfortunately she is having similar symptoms in her left shoulder. After failing conservative treatment, she has elected proceed with a left total shoulder arthroplasty. Specialty Data Orthopedic H & H 11/18/18 12/26/18 Range/Units 13:22 06:31 Hgb 13.0 10.8 L (12.0-16.0) g/dL Hct 38.5 33.7 L (37-47) % Coagulation 11/18/18 Range/Units 13:22 INR 1.0 (0.9-1.1) Discharge Data Consultations 12/25/18 11:39 Consult Case Management - Discharge Planning Routine Procedures Performed Operation Date: 12/25/18 08:50 Actual Procedures p Left Total Shoulder Replacement(Left) - Edgard Yang DO Hospital Course (1) Osteoarthritis of left shoulder: On December 25, 2018 Rama arrived at [facility] and underwent a left total shoulder arthroplasty without complication. She had a general anesthetic and a left interscalene nerve block. Postoperatively she was placed in an arm sling and discharged to general orthopedic floors. Her hospital course was uneventful. On postop day #1 her H&H was stable and her pain was well controlled. She was able to participate well with physical therapy doing range of motion exercises. She was then discharged home with [facility]. She will follow-up with orthopedics in 2 weeks. Discharge Instructions Home Medications Medication Instructions Recorded Confirmed albuterol sulfate [Ventolin HFA] 2 puff INHALATION Q6H PRN 11/12/18 12/25/18 amlodipine 5 mg PO QPM 11/12/18 12/25/18 ascorbic acid (vitamin C) [Vitamin 500 mg PO DAILY 11/12/18 12/25/18 C] aspirin 81 mg PO QAM 11/12/18 12/25/18 atorvastatin 80 mg PO QAM 11/12/18 12/25/18 azelastine-fluticasone 1 spray INTRANASAL QPM 11/12/18 12/25/18 baclofen 10 mg PO BID 11/12/18 12/25/18 canagliflozin [Invokana] 100 mg PO QPM 11/12/18 12/25/18 carbamazepine 200 mg PO TID 11/12/18 12/25/18 fexofenadine [Teodora Allergy] 180 mg PO QPM 11/12/18 12/25/18 fluticasone propionate [Flonase 1 spray INTRANASAL QPM 11/12/18 12/25/18 Allergy Relief] furosemide 40 mg PO QAM 11/12/18 12/25/18 glimepiride 4 mg PO QAM 11/12/18 12/25/18 labetalol 200 mg PO UD 11/12/18 12/25/18 levofloxacin [Levaquin] 500 mg PO UD PRN 11/12/18 12/25/18 linagliptin [Tradjenta] 5 mg PO QAM 11/12/18 12/25/18 losartan 100 mg PO QPM 11/12/18 12/25/18 metolazone 5 mg PO UD PRN 11/12/18 12/25/18 montelukast 10 mg PO QPM 11/12/18 12/25/18 oxycodone-acetaminophen [Percocet] 1 tab PO Q8H PRN 11/12/18 12/25/18 prednisone 20 mg PO UD PRN 11/12/18 12/25/18 spironolactone 100 mg PO QAM 11/12/18 12/25/18 trazodone 50 mg PO HS 11/12/18 12/25/18 Previous Rx's Medication Instructions Recorded oxycodone 5 - 10 mg PO Q4H PRN #40 tab 12/26/18
[2018-12-26] MEDS: DYMISTA~ORDER AWAITING ACTION SCH (08:17)
[2018-12-26] MEDS ORDERED: LABETALOL HCL 100 MG TAB PO SCH (09:00)
== END 2018-12-26 12:10 | disposition home health service (06) | DRG 483 ==
LOC: ASU 06:21 → 3E 11:32

== ENCOUNTER 2019-12-27 09:42 | Inpatient (IN) ==
--- NOTE | 2019-12-27 10:04 | Emergency Department Note ---
Impression & Plan Acute kidney injury, Cellulitis, Elevated WBC count, Abnormal ECG ED Provider Note NAME: ABBI MAGAÑA AGE: 74 SEX: F : 1945 ARRIVES VIA: Walk-In INFORMANT: Patient, ED PROVIDER(S): Faizan Cortez DO CHIEF COMPLAINT: Abnormal potassium HPI: The patient is a 74-year-old female who presented to the emergency department after she was called by her primary care physician's office for an evaluation of abnormal creatinine and potassium. The patient states that she had routine laboratory studies drawn last Friday by her primary care physician. She had a routine follow-up appointment. She does have a history of kidney problems in the past as well as heart failure. She is noticed some weight gain and lower extremity swelling. She is also noticed increased urination but she thought it was because her Lasix was recently increased on Friday. She denies having any orthopnea but does complain of shortness of breath with exertion. She denies having any fevers. She has had no recent fevers or exposures to COVID-19 as far she knows. The patient states she is been experiencing reflux symptoms over the last month. She was seen for this by a physician and was told it was reflux and started on omeprazole. She has been on this medication for a month. She denies any recent NSAID use specifically no ibuprofen or naproxen. The patient is unsure of the exact level of her abnormal labs. ROS: See above HPI for pertinent positives & negatives. A total of 10 systems reviewed and were otherwise negative. PAST MEDICAL HISTORY: See Below PAST SURGICAL HISTORY: See Below FAMILY HISTORY: See Below SOCIAL HISTORY: See Below HOME MEDICATIONS: See Below ALLERGIES: See Below VITALS: See Below PHYSICAL EXAMINATION: GENERAL: Patient is awake alert in no acute distress patient is resting comfortably and showing no signs of anxiety EYES: The conjunctivae are clear. The pupils are round and reactive. EARS, NOSE, MOUTH AND THROAT: The nose is without any evidence of any deformity. Mucous membranes are moist. Tongue is midline. NECK: The neck is nontender and supple. RESPIRATORY: Diminished breath sounds are noted at the right base. There are rales at the right base. There is no tachypnea but there was mild conversational dyspnea. CARDIOVASCULAR: Regular rate and rhythm noted there no murmurs rubs or gallops normal S1 normal S2. GASTROINTESTINAL: The abdomen is soft. Abdomen is nontender. MUSCULOSKELETAL/EXTREMITIES: There is no evidence of gross deformity full range of motion is noted in the hips and shoulders. SKIN: Pedal edema was noted bilaterally. Venous stasis changes were noted. Skin was warm and dry. NEUROLOGIC: Patient is awake alert and oriented x3. MEDICAL DECISION MAKING: The patient is a 74-year-old female who presented to the emergency department for an evaluation of abnormal labs. The patient was seen last week for routine visit and had follow-up laboratory studies drawn. At that time she was found to have acute kidney injury with hyperkalemia. The patient states that she is noticed lower extremity swelling and redness. The patient was treated with a small fluid bolus after chest x-ray did not reveal signs of pulmonary edema. She was also given IV antibiotics after a white blood cell count was found to be elevated. She was started on Lasix over the weekend which is likely why her potassium is no longer elevated. Her creatinine continues to be elevated at this time. She was also found to have an abnormal EKG but no chest pain at this time or abnormal troponin. I discussed the patient's laboratory and radiographic studies with her. I also discussed her case with the on-call [facility] hospitalist group. They have agreed to evaluate the patient in the emergency department for further management and disposition. Triage Nursing notes reviewed. Prior medical records reviewed Vital Signs: reviewed and remarkable for no significant abnormalities Differential diagnosis: Infection, dehydration, metabolic abnormality, hypo/hyperglycemia, electrolyte disturbance, anemia, hypoxia, cardiac sources, intracerebral event, toxicologic, neurologic, as well as other pathologies. ER treatment provided: See below Diagnostics interpreted by me: ECG: EKG was obtained in the emergency department. My interpretation is normal sinus rhythm at 67 bpm. There is no ectopy. There was high lateral T wave inversions with ST segment depressions noted. This was compared to a tracing from November 18, 2018. The ST segment abnormalities are new. Cardiac Monitoring: An order was placed for continuous cardiac monitoring. The monitor shows a rate of 66 with sinus rhythm. Laboratory studies: As stated above and show below. Imaging studies: See below Consultation(s): 3630: I discussed this case [facility] She[facility] agreed to evaluate the patient in the emergency department for further management and disposition. 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 Stroke 2003 - INTERMITTENAT VERTIGO AND WEAKNESS ON RIGHT ARM. Surgical History History of bilateral carotid endarterectomy History of cholecystectomy History of colonoscopy w/ polypectomy History of esophagogastroduodenoscopy (EGD) History of surgery Trigeminal decompression 1990s History of surgical removal of ganglion cyst RIGHT History of tonsillectomy and adenoidectomy History of tooth extraction History of total shoulder replacement Rt 11/14/17 - Elective Glidescope #3 due to Grade 3 View and difficulty visualizing cords, ETT #7.0. Patient re-positioned twice. A-Line placed. 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 Feels Safe at Home: Yes Smoking Status: Former smoker Tobacco Type: cigarettes ; Cigarettes Per Day: 20 ; Number of Years Since Quit: 8 ; Second Hand Exposure: Yes (pervious exposure - quit 03/2018) ; Hx Alcohol Use: No Hx Substance Use: No Allergies Allergies Allergy/AdvReac Type Severity Reaction Status Date / Time clarithromycin Allergy BURNING Verified 11/18/19 11:11 MOUTH Home Meds Home Medications Medication Instructions Recorded Confirmed Tradjenta 5 mg PO QDL 11/12/18 12/27/19 amlodipine 5 mg PO QPM 11/12/18 12/27/19 ascorbic acid (vitamin C) [Vitamin 500 mg PO QDL 11/12/18 12/27/19 C] aspirin 81 mg PO QAM 11/12/18 12/27/19 atorvastatin 80 mg PO QDL 11/12/18 12/27/19 azelastine-fluticasone 1 spray INTRANASAL QPM 11/12/18 12/27/19 fluticasone propionate [Flonase 2 spray INTRANASAL QPM 11/12/18 12/27/19 Allergy Relief] furosemide 40 mg PO QAM 11/12/18 12/27/19 glimepiride 4 mg PO QAM 11/12/18 12/27/19 labetalol 200 mg PO QDD 11/12/18 12/27/19 losartan 100 mg PO QPM 11/12/18 12/27/19 metolazone 5 mg PO UD PRN 11/12/18 12/27/19 montelukast 10 mg PO QPM 11/12/18 12/27/19 oxycodone-acetaminophen [Percocet] 1 tab PO Q8H PRN 11/12/18 12/27/19 spironolactone 100 mg PO QDL 11/12/18 12/27/19 Magic Mouth Wash 1 dose PO DAILY PRN 04/12/19 12/27/19 labetalol 100 mg PO QAM 04/12/19 12/27/19 gabapentin 200 mg PO TID 12/27/19 12/27/19 levocetirizine 2.5 mg PO HS 12/27/19 12/27/19 Previous Rx's Medication Instructions Recorded empagliflozin 25 mg tablet 25 mg PO DAILY #30 tab 11/18/19 Results & Data (ED) Vital Signs Vital Signs - 24 hr 12/27/19 09:45 12/27/19 09:56 12/27/19 11:29 Temperature 37.2 C Temperature Source Oral Pulse Rate 65 63 Pulse Rate [Finger] Pulse Rate from SpO2 Sensor 64 Respiratory Rate 22 23 Respiratory Effort / Characteristics Non-Labored Respiratory Depth Normal Respiratory Pattern Regular Blood Pressure 112/46 L 133/60 Blood Pressure [Right Arm] Blood Pressure Mean 68 71 Blood Pressure Mean [Right Arm] Blood Pressure Position Sitting Pulse Oximetry 96 96 98 Oxygen Delivery Method Nasal Cannula Nasal Cannula Oxygen Flow Rate 3 3 Sepsis Action Taken by Nursing No Action Required 12/27/19 11:30 12/27/19 11:34 Temperature Temperature Source Pulse Rate 68 Pulse Rate [Finger] 65 Pulse Rate from SpO2 Sensor 68 Respiratory Rate 19 16 Respiratory Effort / Characteristics Respiratory Depth Respiratory Pattern Blood Pressure 135/55 L Blood Pressure [Right Arm] 135/55 L Blood Pressure Mean 84 Blood Pressure Mean [Right Arm] 81 Blood Pressure Position Pulse Oximetry 98 96 Oxygen Delivery Method Nasal Cannula Oxygen Flow Rate 3 Sepsis Action Taken by Long-Term Medications Current Medication List: was personally reviewed by me Laboratory Data Attestation: I reviewed the patient's lab results. Result diagrams: 12/27/19 10:46 12/27/19 10:46 Lab Results 12/27/19 12/27/19 12/27/19 Range/Units 10:46 10:46 10:46 WBC 22.57 H (4.8-10.8) K/uL RBC 4.02 L (4.2-5.4) M/uL Hgb 12.0 (12.0-16.0) g/dL Hct 37.9 (37-47) % MCV 94.3 (80-100) fL MCH 29.9 (25-34) pg MCHC 31.7 L (32-36) g/dL RDW Std Deviation 54.7 H (36.4-46.3) fL RDW Coeff of Mono 15.8 H (11.5-14.5) % Plt Count 368 (130-400) K/uL MPV 10.3 (7.4-10.4) fL Immature Gran % (Auto) 0.7 % Neut % (Auto) 85.5 % Lymph % (Auto) 7.5 % [place] % (Auto) 6.2 % Eos % (Auto) 0.0 % Baso % (Auto) 0.1 % Neut # (Auto) 19.31 H (1.4-6.5) K/uL Lymph # (Auto) 1.69 (1.2-3.4) K/uL [place] # (Auto) 1.39 H (0.11-0.59) K/uL Eos # (Auto) 0.00 (0-0.5) K/uL Baso # (Auto) 0.02 (0-0.2) K/uL Immature Gran # (Auto) 0.16 H (0.00-0.02) K/uL PT 10.5 (9.0-12.0) Seconds INR 1.0 (0.9-1.1) APTT 23.1 (21.0-31.0) Seconds PTT Ratio 0.8 Sodium 137 (136-145) mmol/L Potassium 4.9 (3.5-5.1) mmol/L Chloride 105 (98-107) mmol/L Carbon Dioxide 22 (21-32) mmol/L Anion Gap 10.0 (3-11) BUN 60 H (7-18) mg/dl Creatinine 1.66 H (0.6-1.2) mg/dl Est Cr Clr Drug Dosing 37.1 ml/min Est GFR ( Amer) 34.8 Est GFR (Non-Af Amer) 30.0 BUN/Creatinine Ratio 36.3 H (10-20) Glucose 260 H (70-99) mg/dl Osmolality (280-300) mOsm/kg Calcium 9.9 (8.5-10.1) mg/dl Magnesium 3.1 H (1.8-2.4) mg/dl Total Bilirubin 0.2 (0.2-1) mg/dl AST < 3 L (15-37) U/L ALT 20 (12-78) U/L Alkaline Phosphatase 134 H (45-117) U/L Troponin I < 0.015 (0-0.045) ng/ml Total Protein 7.7 (6.4-8.2) gm/dl Albumin 3.7 (3.4-5.0) gm/dl Globulin 4.0 (2.5-4.0) gm/dl Albumin/Globulin Ratio 0.9 (0.9-2) Urine Color Urine Appearance (Clear) Urine pH (4.5-7.5) Ur Specific Alpha (1.000-1.030) Urine Protein (Negative) Urine Glucose (UA) (Negative) Urine Ketones (Negative) Urine Blood (Negative) Urine Nitrite (Negative) Urine Bilirubin (Negative) Urine Urobilinogen (Negative) Ur Leukocyte Esterase (Negative) Urine Osmolality (500-800) mOsm/kg Ur Random Sodium mmol/L Carbamazepine (4-12) mcg/ml 12/27/19 12/27/19 12/27/19 Range/Units 10:46 10:46 11:25 WBC (4.8-10.8) K/uL RBC (4.2-5.4) M/uL Hgb (12.0-16.0) g/dL Hct (37-47) % MCV (80-100) fL MCH (25-34) pg MCHC (32-36) g/dL RDW Std Deviation (36.4-46.3) fL RDW Coeff of Mono (11.5-14.5) % Plt Count (130-400) K/uL MPV (7.4-10.4) fL Immature Gran % (Auto) % Neut % (Auto) % Lymph % (Auto) % [place] % (Auto) % Eos % (Auto) % Baso % (Auto) % Neut # (Auto) (1.4-6.5) K/uL Lymph # (Auto) (1.2-3.4) K/uL [place] # (Auto) (0.11-0.59) K/uL Eos # (Auto) (0-0.5) K/uL Baso # (Auto) (0-0.2) K/uL Immature Gran # (Auto) (0.00-0.02) K/uL PT (9.0-12.0) Seconds INR (0.9-1.1) APTT (21.0-31.0) Seconds PTT Ratio Sodium (136-145) mmol/L Potassium (3.5-5.1) mmol/L Chloride (98-107) mmol/L Carbon Dioxide (21-32) mmol/L Anion Gap (3-11) BUN (7-18) mg/dl Creatinine (0.6-1.2) mg/dl Est Cr Clr Drug Dosing ml/min Est GFR ( Amer) Est GFR (Non-Af Amer) BUN/Creatinine Ratio (10-20) Glucose (70-99) mg/dl Osmolality 326 H (280-300) mOsm/kg Calcium (8.5-10.1) mg/dl Magnesium (1.8-2.4) mg/dl Total Bilirubin (0.2-1) mg/dl AST (15-37) U/L ALT (12-78) U/L Alkaline Phosphatase (45-117) U/L Troponin I (0-0.045) ng/ml Total Protein (6.4-8.2) gm/dl Albumin (3.4-5.0) gm/dl Globulin (2.5-4.0) gm/dl Albumin/Globulin Ratio (0.9-2) Urine Color Urine Appearance (Clear) Urine pH (4.5-7.5) Ur Specific Alpha (1.000-1.030) Urine Protein (Negative) Urine Glucose (UA) (Negative) Urine Ketones (Negative) Urine Blood (Negative) Urine Nitrite (Negative) Urine Bilirubin (Negative) Urine Urobilinogen (Negative) Ur Leukocyte Esterase (Negative) Urine Osmolality 417 L (500-800) mOsm/kg Ur Random Sodium mmol/L Carbamazepine < 0.5 L (4-12) mcg/ml 12/27/19 12/27/19 Range/Units 11:25 11:25 WBC (4.8-10.8) K/uL RBC (4.2-5.4) M/uL Hgb (12.0-16.0) g/dL Hct (37-47) % MCV (80-100) fL MCH (25-34) pg MCHC (32-36) g/dL RDW Std Deviation (36.4-46.3) fL RDW Coeff of Mono (11.5-14.5) % Plt Count (130-400) K/uL MPV (7.4-10.4) fL Immature Gran % (Auto) % Neut % (Auto) % Lymph % (Auto) % [place] % (Auto) % Eos % (Auto) % Baso % (Auto) % Neut # (Auto) (1.4-6.5) K/uL Lymph # (Auto) (1.2-3.4) K/uL [place] # (Auto) (0.11-0.59) K/uL Eos # (Auto) (0-0.5) K/uL Baso # (Auto) (0-0.2) K/uL Immature Gran # (Auto) (0.00-0.02) K/uL PT (9.0-12.0) Seconds INR (0.9-1.1) APTT (21.0-31.0) Seconds PTT Ratio Sodium (136-145) mmol/L Potassium (3.5-5.1) mmol/L Chloride (98-107) mmol/L Carbon Dioxide (21-32) mmol/L Anion Gap (3-11) BUN (7-18) mg/dl Creatinine (0.6-1.2) mg/dl Est Cr Clr Drug Dosing ml/min Est GFR ( Amer) Est GFR (Non-Af Amer) BUN/Creatinine Ratio (10-20) Glucose (70-99) mg/dl Osmolality (280-300) mOsm/kg Calcium (8.5-10.1) mg/dl Magnesium (1.8-2.4) mg/dl Total Bilirubin (0.2-1) mg/dl AST (15-37) U/L ALT (12-78) U/L Alkaline Phosphatase (45-117) U/L Troponin I (0-0.045) ng/ml Total Protein (6.4-8.2) gm/dl Albumin (3.4-5.0) gm/dl Globulin (2.5-4.0) gm/dl Albumin/Globulin Ratio (0.9-2) Urine Color Yellow Urine Appearance Clear (Clear) Urine pH 5.0 (4.5-7.5) Ur Specific Alpha 1.020 (1.000-1.030) Urine Protein Negative (Negative) Urine Glucose (UA) 3+ H (Negative) Urine Ketones Negative (Negative) Urine Blood Negative (Negative) Urine Nitrite Negative (Negative) Urine Bilirubin Negative (Negative) Urine Urobilinogen Negative (Negative) Ur Leukocyte Esterase Negative (Negative) Urine Osmolality (500-800) mOsm/kg Ur Random Sodium 84 mmol/L Carbamazepine (4-12) mcg/ml Administered Medications Discontinued Medications Sodium Chloride (Nss 1000ml) 500 mls @ 999 mls/hr IV .Q31M ONE Stop: 12/27/19 11:29 Last Infusion: 12/27/19 12:03 Dose: 0 mls/hr Documented by: [id number] Admin: 12/27/19 11:32 Dose: 999 mls/hr Documented by: [id number] Imaging Data Radiologist's Impression: SINGLE VIEW CHEST CLINICAL HISTORY: Dyspnea. FINDINGS: An AP, portable, upright chest radiograph is compared to study dated 11/18/2018. The heart is enlarged noting atherosclerotic calcification of the thoracic aorta. The pulmonary vasculature is noncongested. Chronic interstitial thickening is similar to previous. Small calcified granulomas are incidentally noted. There is bibasilar atelectasis. No airspace consolidation or large pleural effusion is identified. No pneumothorax is seen. The skeletal structures are osteopenic. The bony thorax is grossly intact. There are bilateral shoulder arthroplasties in place. Degenerative change is noted throughout the thoracic spine. IMPRESSION: Cardiomegaly with no acute cardiopulmonary abnormality. ACT 112: Negative or not required by law. Electronically signed by: Michael Rajan M.D. 12/27/2019 10:24 AM Dictated: 12/27/19 1023 Transcribed: 12/27/19 1023 Blood Pressure Blood Pressure Findings: Normal blood pressure Discharge Plan Visit Data Chief Complaint: Referred by Doctor Stated Complaint: KIDNEY INJURY AND PASSING OF SOMETHING ED Provider: Faizan Cortez Discharge Problem: Acute kidney injury, Cellulitis, Elevated WBC count, Abnormal ECG Patient Disposition: Being Evaluated by Hospitalist Condition: Good Forms Stand Alone Forms: [facility] [employer] Prescriptions Prescriptions: No Action Jardiance 25 mg tablet 25 mg PO DAILY Qty: 30 RF: 2 gabapentin 100 mg capsule 200 mg PO TID RF: 0 levocetirizine 5 mg tablet 2.5 mg PO HS RF: 0 furosemide 40 mg Tablet 40 mg PO QAM RF: 0 atorvastatin 80 mg Tablet 80 mg PO QDL RF: 0 labetalol 200 mg Tablet 200 mg PO QDD RF: 0 spironolactone 100 mg Tablet 100 mg PO QDL RF: 0 metolazone 5 mg Tablet 5 mg PO UD PRN (Reason: Edema) RF: 0 amlodipine 5 mg Tablet 5 mg PO QPM RF: 0 aspirin 81 mg Tablet,Delayed Release (Dr/Ec) 81 mg PO QAM RF: 0 oxycodone-acetaminophen [Percocet] 5-325 mg Tablet 1 tab PO Q8H PRN (Reason: Pain) RF: 0 ascorbic acid (vitamin C) [Vitamin C] 500 mg Tablet 500 mg PO QDL RF: 0 glimepiride 4 mg Tablet 4 mg PO QAM RF: 0 montelukast 10 mg Tablet 10 mg PO QPM RF: 0 losartan 100 mg Tablet 100 mg PO QPM RF: 0 fluticasone propionate [Flonase Allergy Relief] 50 mcg/actuation Duarte,Suspension 2 spray INTRANASAL QPM RF: 0 Tradjenta 5 mg Tablet 5 mg PO QDL RF: 0 azelastine-fluticasone 137-50 mcg/spray Duarte,Non-Aerosol 1 spray INTRANASAL QPM RF: 0 labetalol 200 mg Tablet 100 mg PO QAM RF: 0 Magic Mouth Wash 1 dose PO DAILY PRN (Reason: SORE MOUTH) RF: 0 Referrals Referrals: Ferny Sr DO [Primary Care Provider] -
--- NOTE | 2019-12-27 10:26 | XRay Report ---
SINGLE VIEW CHEST CLINICAL HISTORY: Dyspnea. FINDINGS: An AP, portable, upright chest radiograph is compared to study dated 11/18/2018. The heart i s enlarged noting atherosclerotic calcification of the thoracic aorta. The pulmonary vasculature is n oncongested. Chronic interstitial thickening is similar to previous. Small calcified granulomas are i ncidentally noted. There is bibasilar atelectasis. No airspace consolidation or large pleural effusio n is identified. No pneumothorax is seen. The skeletal structures are osteopenic. The bony thorax is grossly intact. There are bilateral shoulder arthroplasties in place. Degenerative change is noted th roughout the thoracic spine. IMPRESSION: Cardiomegaly with no acute cardiopulmonary abnormality. ACT 112: Negative or not required by law. Electronically signed by: Michael Rajan M.D. 12/27/2019 10:24 AM
[2019-12-27] MEDS ORDERED: SODIUM CHLORIDE 0.9% 1000ML 500 ML IV ONE (10:59)
[2019-12-27 11:16] LABS: Partial Thromboplastin Ratio 0.8; Partial Thromboplastin Time 23.1 Seconds (21.0-31.0); Prothrombin Time 10.5 Seconds (9.0-12.0)
[2019-12-27 11:31] LABS: Basophils # (auto) 0.02 K/uL (0-0.2); Basophils % (auto) 0.1 %; Hematocrit (blood only) 37.9 % (37-47); Immature Granulocytes # (auto) 0.16 K/uL (0.00-0.02); Immature Granulocytes % (auto) 0.7 %; Lymphocytes # (auto) 1.69 K/uL (1.2-3.4); Lymphocytes % (auto) 7.5 %; Mean Corpuscular Hemoglobin 29.9 pg (25-34); Mean Corpuscular Hgb Conc 31.7 g/dL (32-36); Mean Corpuscular Volume 94.3 fL (80-100); Mean Platelet Volume 10.3 fL (7.4-10.4); Monocytes # (auto) 1.39 K/uL (0.11-0.59); Monocytes % (auto) 6.2 %; Neutrophils # (auto) 19.31 K/uL (1.4-6.5); Neutrophils % (auto) 85.5 %; Platelet Count 368 K/uL (130-400); RDW Coefficient of Variation 15.8 % (11.5-14.5); RDW Standard Deviation 54.7 fL (36.4-46.3); Red Blood Count 4.02 M/uL (4.2-5.4); White Blood Count 22.57 K/uL (4.8-10.8)
[2019-12-27 11:39] LABS: Appearance Urine Clear (Clear); Bilirubin Urine Negative (Negative); Blood Urine Negative (Negative); Color Urine Yellow; Glucose Urine UA 3+ (Negative); Ketones Urine Negative (Negative); Leukocyte Esterase Urine Negative (Negative); Nitrite Urine Negative (Negative); Protein Urine Negative (Negative); Urobilinogen Urine Negative (Negative)
[2019-12-27 11:43] LABS: Alanine Aminotransferase 20 U/L (12-78); Albumin Level 3.7 gm/dl (3.4-5.0); Aspartate Aminotransferase < 3 U/L (15-37); BUN Creatinine Ratio 36.3 (10-20); Blood Urea Nitrogen 60 mg/dl (7-18); Calcium 9.9 mg/dl (8.5-10.1); Carbon Dioxide 22 mmol/L (21-32); Chloride 105 mmol/L (98-107); Creatinine Clr Calc Pharmacy 37.1 ml/min; Est GFR (African American) 34.8; Glucose 260 mg/dl (70-99); Magnesium 3.1 mg/dl (1.8-2.4); Potassium 4.9 mmol/L (3.5-5.1); Sodium 137 mmol/L (136-145)
--- NOTE | 2019-12-27 11:46 | Electrocardiogram Report ---
Test Reason : Blood Pressure : / mmHG Vent. Rate : 067 BPM Atrial Rate : 067 BPM P-R Int : 156 ms QRS Dur : 090 ms QT Int : 406 ms P-R-T Axes : 000 020 148 degrees QTc Int : 429 ms Normal sinus rhythm Inferior infarct , age undetermined Poor R wave progression, consider anterior [place] vs. lead placement vs. LVH Abnormal ECG When compared with ECG of 18-NOV-2018 13:30, Inferior infarct is now Present Confirmed by Faizan Vale ([id number]) on 12/27/2019 11:45:37 AM Referred By: Ferny rS Confirmed By:Faizan Vale
[2019-12-27 11:48] LABS: Albumin Globulin Ratio 0.9 (0.9-2); Alkaline Phosphatase 134 U/L (45-117); Bilirubin,Total 0.2 mg/dl (0.2-1); Total Protein 7.7 gm/dl (6.4-8.2); Troponin I < 0.015 ng/ml (0-0.045)
[2019-12-27] MEDS ORDERED: cefTRIAXone SODIUM 1,000 MG/50 ML BAG IV STA (12:36)
--- NOTE | 2019-12-27 13:34 | History & Physical Report ---
Date of Service December 27, 2019 Assessment & Plan (1) Acute kidney injury superimposed on chronic kidney disease: This is a 74yo F with a PMH of DM II, h/o CVA, h/o trigeminal neuralgia s/p nerve decompression, s/p bilateral carotid endarterectomy, COPD, CHAZ on BiPAP and other medical problems listed below who presents from PCPs office with abnormal labs. -Creatinine elevated to 1.66 (baseline Cr~1.1) in setting of increased diuretic use. Hyperkalemia was present on outpatient labwork but has since resolved -Holding losartan, lasix, spironolactone and metolazone for tomorrow -Monitor BMP (2) Leukocytosis: WBC count of 22K likely due to large dose of steroids taken over the weekend vs possible cellulitis -Erythema of BLE however no warmth to area, no drainage, has been present with BLE edema -CXR without abnormality, UA normal. Work up: ESR: 48, Lactate 2.2, CRP: <0.29, Procalcitonin and blood cultures pending -Given Rocephin empirically in ED. Will continue empiric abx coverage with PO Doxy for now -Daily CBC (3) EKG abnormality: Initial EKG with high lateral T wave inversions and ST segment depressions noted as compared to November 18 EKG -No chest pain. Troponin negative -Repeat EKG pending. Monitor on tele (4) Jaw pain: Two weeks of worsening aching pain, thought to be due to TMJ. Symptoms improving on Medrol Dosepak -Also considering history of trigeminal neuralgia s/p nerve decompression with recent discontinuation of carbamazepine 3 weeks ago -CT head without contrast without acute abnormality. CT soft tissue neck wo cont rast with suboptimal examination but suspect scattered dental caries. Nonemergent follow-up with dentistry is recommended. No acute abnormality identified -Continue Medrol Dosepak, follow up with dentist as outpatient (5) Diabetes mellitus: Uncontrolled with recent a1c of 9.1 -Hold home agents -Basal bolus insulin while admitted per protocol -BSG AC HS (6) HTN (hypertension): Continue amlodipine and labetalol. Holding losartan in setting of KALPANA (7) CVA (cerebral vascular accident): Continue aspirin and statin (8) CHAZ treated with BiPAP: Bipap HS with 3.5 L O2 DVT Ppx: SQ heparin Code status: FULL PCP: Sulman Dispo: Admitted to [facility]. Plan to return home once medically stable. Patient seen in collaboration with Dr. Mitchell. Please see addendum. History of Present Illness Chief Complaint: jaw pain, sent for abn labwork Primary Care Provider: Ferny Sr, This is a 74yo F with a PMH of DM II, h/o CVA, h/o trigeminal neuralgia s/p nerve decompression, s/p bilateral carotid endarterectomy, COPD, CHAZ on BiPAP and other medical problems listed below who presents from PCPs office with abnormal lab work. Was seen by PCP Dr. Sr in clinic on Friday, December 23 and had routine lab work, which revealed hyperkalemia of 5.9 and elevated creatinine of 1.7 (baseline ~1.1) and was directed to come to ED for further evaluation. Had been noticing worsening lower extremity swelling and Dr. Sr had increased Lasix from 40 to 80 mg over the weekend. Denies using any nsaids. During PCP visit, patient was also started on Medrol Dosepak due to 2 weeks of worsening left-sided jaw discomfort noted mostly when chewing. Also has history of trigeminal neuralgia s/p nerve decompression performed at [place] 30 years ago. Has been on carbamazepine for 30 years up until 3 weeks ago when neurology discontinued medication due to possible side effect of tremors. Patient feels that jaw pain is aching in nature now and different than "electric shocks" like trigeminal neuralgia pain from the past. Has also had worsening BLE redness over the past few weeks but feels its associated with leg swelling. Denies any warmth or drainage but notes that it is somewhat painful. Denies any fever, chills, lightheadedness, headache, nasal congestion, sinus tenderness, cough, chest pain, SOB, wheezing, nausea, vomiting, abdominal pain, dysuria, diarrhea and constipation. Allergies Allergy/AdvReac Type Severity Reaction Status Date / Time clarithromycin Allergy BURNING Verified 11/18/19 11:11 MOUTH Home Medications Home Medications Medication Instructions Recorded Confirmed Type Tradjenta 5 mg PO QDL 11/12/18 12/27/19 History amlodipine 5 mg PO QPM 11/12/18 12/27/19 History ascorbic acid (vitamin C) [Vitamin 500 mg PO QDL 11/12/18 12/27/19 History C] aspirin 81 mg PO QAM 11/12/18 12/27/19 History atorvastatin 80 mg PO QDL 11/12/18 12/27/19 History azelastine-fluticasone 1 spray INTRANASAL BID 11/12/18 12/27/19 History fluticasone propionate [Flonase 2 spray INTRANASAL QPM 11/12/18 12/27/19 History Allergy Relief] furosemide 40 mg PO QAM 11/12/18 12/27/19 History glimepiride 4 mg PO QAM 11/12/18 12/27/19 History labetalol 200 mg PO QDD 11/12/18 12/27/19 History losartan 100 mg PO QPM 11/12/18 12/27/19 History metolazone 5 mg PO UD PRN 11/12/18 12/27/19 History montelukast 10 mg PO QPM /03/2512/27/19 History oxycodone-acetaminophen [Percocet] 1 tab PO Q8H PRN 11/12/18 12/27/19 History spironolactone 100 mg PO QDL 11/12/18 12/27/19 History Magic Mouth Wash 1 dose PO QID PRN 04/12/19 12/27/19 History labetalol 100 mg PO QAM 04/12/19 12/27/19 History empagliflozin 25 mg tablet 25 mg PO DAILY #30 tab 11/18/19 12/27/19 Rx gabapentin 200 mg PO TID 12/27/19 12/27/19 History insulin glargine [Lantus Solostar 42 unit SUBCUT DAILY 12/27/19 12/27/19 History U-100 Insulin] levocetirizine 2.5 mg PO HS 12/27/19 12/27/19 History omeprazole 20 mg PO DAILY 12/27/19 12/27/19 History potassium chloride 10 meq PO DAILY 12/27/19 12/27/19 History repaglinide 0.5 mg PO TID 12/27/19 12/27/19 History Past Med/Surg History Medical History Anxiety (Resolved) Asthma Reports rarely uses PRN INH CKD (chronic kidney disease) stage 3, GFR 30-59 ml/min Depression (Resolved) Diabetes mellitus, type 2 NIDDM Diabetic neuropathy BOTH FEET AND LEGS; Glaucoma Hearing deficit Left ear - no hearing aids History of carotid stenosis s/p BL endarterectomy History of gastric ulcer History of skin cancer History of trigeminal neuralgia s/p surgery Hx of congestive heart failure Hyperlipidemia Hypertension Osteoarthritis 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 Stroke 2003 - INTERMITTENAT VERTIGO AND WEAKNESS ON RIGHT ARM. Surgical History History of bilateral carotid endarterectomy History of cholecystectomy History of colonoscopy w/ polypectomy History of esophagogastroduodenoscopy (EGD) History of surgery Trigeminal decompression 1990s History of surgical removal of ganglion cyst RIGHT History of tonsillectomy and adenoidectomy History of tooth extraction History of total shoulder replacement Rt 11/14/17 - Elective Glidescope #3 due to Grade 3 View and difficulty vi sualizing cords, ETT #7.0. Patient re-positioned twice. A-Line placed. 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 Other Information That Helps Us Care for You: No Feels Safe at Home: Yes Safety Concerns: Feels Safe At This Time Smoking Status: Former smoker Tobacco Type: cigarettes ; Cigarettes Per Day: 20 ; Do You Dip or Chew Tobacco: No ; Number of Years Since Quit: 8 ; Second Hand Exposure: No ; Tobacco Cessation Education Requested by Patient: No Hx Alcohol Use: No Hx Substance Use: No Review of Systems Review of Systems: At least ten systems reviewed and negative except as noted in the HPI. Physical Exam Physical Exam: General Appearance: WD/WN, vitals as above, NAD, sitting up in bed, obese, pleasant, conversing easily Head: normocephalic, atraumatic Eyes: normal inspection, PERRL, conjunctivae normal, anicteric sclerae ENT: external ear and nose normal, oropharynx normal Neck: trachea midline, no thyromegaly, normal visual inspection. + TTP near mandibular condyle, no LAD Respiratory: normal respiratory effort, lungs clear to auscultation, no wheeze, rales, rhonchi. Normal insp/exp effort, no accessory muscle use Cardiovascular: regular rate, rhythm, no murmur, normal peripheral pulses, 1+ BLE edema. Vessels: no JVD or carotid bruit Chest: normal inspection of chest Abdomen/GI: normal bowel sounds, soft, nontender, no hepatosplenomegaly Extremities/Musculoskeletal: no cyanosis or clubbing, extremities motor strength 5/5 Neurologic: PERRL, EOMI, accommodation nl, no face palsy, no dysarthria, CN's II-XI intact bilaterally and moves all extremities Psychiatric: A+Ox3, euthymic affect Skin: + BLE erythema on anterior lower extremities, no warmth or drainage. Normal color, warm/dry Results & Data Results & Data ([facility]) Vital Signs (Past 12 Hours) Vital Signs Temp Pulse Pulse Resp BP BP Pulse Ox 12/27/19 11:34 65 16 135/55 L 96 12/27/19 11:30 68 19 135/55 L 98 12/27/19 11:29 63 23 133/60 98 12/27/19 09:56 96 12/27/19 09:45 37.2 C 65 22 112/46 L 96 Laboratory Results Short CBC 12/27/19 Range/Units 10:46 WBC 22.57 H (4.8-10.8) K/uL Hgb 12.0 (12.0-16.0) g/dL Hct 37.9 (37-47) % Plt Count 368 (130-400) K/uL BMP 12/27/19 10:46 Sodium 137 Potassium 4.9 Chloride 105 Carbon Dioxide 22 BUN 60 H Creatinine 1.66 H Glucose 260 H Calcium 9.9 Cardiac Enzymes 12/27/19 Range/Units 10:46 Troponin I < 0.015 (0-0.045) ng/ml Liver Function 12/27/19 Range/Units 10:46 Total Bilirubin 0.2 (0.2-1) mg/dl AST < 3 L (15-37) U/L ALT 20 (12-78) U/L Alkaline Phosphatase 134 H (45-117) U/L Albumin 3.7 (3.4-5.0) gm/dl Urine 12/27/19 Range/Units 11:25 Urine Color Yellow Urine Appearance Clear (Clear) Urine pH 5.0 (4.5-7.5) Ur Specific [place] 1.020 (1.000-1.030) Urine Protein Negative (Negative) Urine Glucose (UA) 3+ H (Negative) Diagnostic Findings Head CT: IMPRESSION: No acute intracranial findings Soft tissue neck CT: IMPRESSION: 1. Suboptimal examination without IV contrast. 2. No acute abnormality is identified. 3. Suspect scattered dental caries. Nonemergent follow-up with dentistry is recommended. 4. The unenhanced pharyngeal soft tissues are normal as imaged. CXR: IMPRESSION: Cardiomegaly with no acute cardiopulmonary abnormality. Supervising Physician Co-Signing Physician Notes Patient is a 74-year-old female with history of diabetes, trigeminal neuralgia, COPD and other medical problems presents with history of hyperkalemia--noted on outpatient lab and worsening renal function. Patient's diuretics dose was increased by her PCP due to worsening lower extremity edema. She is also currently taking Medrol Dosepak for left-sided jaw pain. She was recently discontinued on carbamazepine by her neurologist secondary to side effects. Patient states having noted to have dysphagia to liquids 2 weeks ago which currently resolved after being started on PPI. She noticed chronic worsening lower extremity swelling associated with erythema. Please review HPI for complete details of presentation. On exam patient is obese, no apparent distress, normocephalic atraumatic, lungs are clear to auscultation, S1-S2, no murmur, abdomen soft, nontender, normal bowel sounds present. Bilateral lower extremity edema, erythema noted. Grossly no focal neurological deficits. Oral thrush noted. Patient is admitted for management of acute kidney injury, leukocytosis, possible lower extremity cellulitis. Acute kidney injury likely secondary to diuretics. Given KALPANA, lactic acidosis will hold diuretics, losartan. IV fluids. Leukocytosis likely secondary to Medrol Dosepak. Empirically treat with doxycycline for possible cellulitis although likely leg erythema secondary to chronic venous stasis. Venous Dopplers negative for DVT. Jaw pain: unclear etiology. DD: Secondary to trigeminal neuralgia. Continue Medrol Dosepak given improvement of jaw pain. CT head, neck showed no acute process. May need dental evaluation as outpatient. Also needs evaluation for intermittent dysphagia with GI as outpatient. Follow-up cultures. Monitor renal function. Hypermagnesemia likely secondary to KALPANA. Currently potassium levels within normal limits while in ED. I personally reviewed the record. Patient is interviewed and examined at bedside. Patient's care is coordinated with Shelli Pina PA-C. Please refer to the documentation above for details of patient's presentation and for discussion of other issues.
[2019-12-27] MEDS ORDERED: OXYCODONE/ACETAMINOPHEN 5mg/325mg TAB PO PRN (14:30)
[2019-12-27] MEDS ORDERED: MAGIC MOUTH WASH PO PRN (14:30)
--- NOTE | 2019-12-27 14:55 | CT Scan Report ---
CT head/brain wo con CLINICAL HISTORY: jaw pain, history of trigeminal nerve decompression COMPARISON STUDY: October 2013 TECHNIQUE: Axial CT of the brain is performed from the vertex to the skull base. IV contrast was not administered for this examination. A dose lowering technique was utilized adhering to the principles of ALARA. CT DOSE: 1226.74 mGy.cm FINDINGS: No intra or extra-axial mass lesions are visualized. There is no CT evidence of acute cortical infarc tion. There is no evidence of midline shift. There is no acute hemorrhage. No calvarial fractures ar e visualized. There are minimal white matter hypodensities likely on a small vessel basis. There is no evidence of pathologic ventricular dilatation. There are postsurgical changes of a left occipital craniotomy. There is no evidence of acute sinusiti s. IMPRESSION: No acute intracranial findings ACT 112: Negative or not required by law. Electronically signed by: Luke Saeed M.D. 12/27/2019 2:54 PM
--- NOTE | 2019-12-27 15:00 | CT Scan Report ---
CT SCAN OF THE NECK WITHOUT IV CONTRAST CLINICAL HISTORY: Left jaw pain. Reported history of trigeminal neuralgia. COMPARISON STUDY: No priors. TECHNIQUE: Unenhanced CT scan of the soft tissues of the neck was performed from the skull base to th e upper chest. Images are reviewed in the axial, sagittal, and coronal planes. IV contrast was not a dministered for this examination. Note that the examination was performed in significantly suboptimal fashion without IV contrast. A dose lowering technique was utilized adhering to the principles of A ZACH. Evaluation of the lower neck is significantly degraded by streak artifact from bilateral should er arthroplasties. FINDINGS: Pharynx: The unenhanced pharyngeal soft tissues are normal as imaged. The pharyngeal airway is widely patent. There is no evidence of mass lesion. The vocal cords are symmetric. The parapharyngeal fat i s well maintained. The prevertebral/retropharyngeal soft tissues are within normal limits. The epiglo ttis is normal. Lymphadenopathy: No cervical lymphadenopathy is identified. Basilar structures: There is atherosclerotic calcification of the thoracic aorta. The arch demonstrat es 4-vessel variant anatomy. There is atherosclerotic calcification of the carotid bulbs. Thyroid: Normal in size and attenuation. Salivary glands: The parotid and submandibular glands are within normal limits. Brain parenchyma: The visualized brain parenchyma at the skull base is normal in appearance. Skeletal structures: The skeletal structures are osteopenic. Imaged portions of the calvarium at the skull base are within normal limits. The cervical spine appears maintained noting multilevel spondylo sis. Bilateral shoulder arthroplasties are in place. No lytic or blastic lesion is seen. Sinuses and mastoids: The visualized paranasal sinuses are clear. The mastoid air cells are well pneu matized. Orbits: The bony orbits are intact. Orbital contents are normal as imaged. Lung apices: Visualized apical lung parenchyma is clear. Dentition: Evaluation of the oral cavity is significantly degraded by streak artifact from dental ama lgam. Scattered dental caries are suggested. No periapical lucencies are identified. The tibiotalar j oints appear maintained. IMPRESSION: 1. Suboptimal examination without IV contrast. 2. No acute abnormality is identified. 3. Suspect scattered dental caries. Nonemergent follow-up with dentistry is recommended. 4. The unenhanced pharyngeal soft tissues are normal as imaged. ACT 112: Negative or not required by law. Electronically signed by: Michael Rajan M.D. 12/27/2019 2:59 PM
[2019-12-27] MEDS ORDERED: POLYETHYLENE (MIRALAX) 17 GM PACK PO PRN (15:51)
[2019-12-27] MEDS ORDERED: GLUCOSE 10 TABS/TUBE PO PRN (16:02)
[2019-12-27] MEDS ORDERED: GLUCOSE 40% GEL 15 GM TUBE PO PRN (16:02)
[2019-12-27] MEDS ORDERED: CARBOHYDRATES FOR HYPOGLYCEMIA PO PRN (16:02)
[2019-12-27] MEDS ORDERED: GLUCAGON FOR INJ 1 MG VIAL SQ PRN (16:02)
[2019-12-27] MEDS ORDERED: DEXTROSE 50% 50 ML SYRINGE IV PRN (16:02)
[2019-12-27] MEDS ORDERED: Magic Mouthwash 240mL PO PRN (16:33)
[2019-12-27] MEDS: SODIUM CHLORIDE 0.9% 1000ML 1,000 ML IV SCH (16:41)
[2019-12-27] MEDS: LABETALOL HCL 200 MG TAB PO SCH (16:43)
[2019-12-27] MEDS ORDERED: predniSONE 20 MG TAB PO ONE (17:30)
--- NOTE | 2019-12-27 17:47 | Ultrasound Report ---
US venous doppler LE BI HISTORY: Pain. Edema. BL edema COMPARISON STUDY: None. FINDINGS: There is normal compressibility, flow, and augmentation within the bilateral lower extremit y deep venous systems. IMPRESSION: No DVT within the right or left lower extremity. ACT 112: Negative or not required by law. The above report was generated using voice recognition software. It may contain grammatical, syntax or spelling errors. Electronically signed by: Reginaldo Mary M.D. 12/27/2019 5:45 PM
[2019-12-27] MEDS: INSULIN ASPART 100 UNITS/ML 3 ML PEN SC SCH ×2 (18:23→20:47)
[2019-12-27] MEDS: FLUTICASONE PROPIONATE NA SPR 16 GM BTL NAE SCH (20:42)
[2019-12-27] MEDS: INSULIN GLARGINE SOLOSTAR 100 UNITS/ML 3 ML PEN SC SCH (20:43)
[2019-12-27] MEDS: GABAPENTIN 100 MG CAP PO SCH (20:44)
[2019-12-27] MEDS: DOXYCYCLINE HYCLATE 100 MG CAP PO SCH (20:47)
[2019-12-27] MEDS: MONTELUKAST SODIUM 10 MG TABLET PO SCH (20:47)
[2019-12-27] MEDS: CETIRIZINE HCL 10 MG TABLET PO SCH (20:48)
[2019-12-27] MEDS: HEPARIN SOD 5,000 UNIT/0.5 ML VIAL SQ SCH (20:49)
[2019-12-27] MEDS ORDERED: AMLODIPINE BESYLATE 5 MG TAB PO SCH (21:00)
[2019-12-28] MEDS: SODIUM CHLORIDE 0.9% 1000ML 1,000 ML IV SCH (02:04)
[2019-12-28] MEDS: HEPARIN SOD 5,000 UNIT/0.5 ML VIAL SQ SCH ×3 (06:17→20:39)
[2019-12-28 07:06] LABS: Basophils # (auto) 0.01 K/uL (0-0.2); Basophils % (auto) 0.1 %; Immature Granulocytes # (auto) 0.17 K/uL (0.00-0.02); Immature Granulocytes % (auto) 0.9 %; Lymphocytes # (auto) 1.93 K/uL (1.2-3.4); Lymphocytes % (auto) 9.7 %; Mean Corpuscular Hemoglobin 29.3 pg (25-34); Mean Corpuscular Hgb Conc 30.8 g/dL (32-36); Mean Corpuscular Volume 95.4 fL (80-100); Mean Platelet Volume 10.5 fL (7.4-10.4); Monocytes # (auto) 0.64 K/uL (0.11-0.59); Monocytes % (auto) 3.2 %; Neutrophils # (auto) 17.19 K/uL (1.4-6.5); Neutrophils % (auto) 86.1 %; Platelet Count 339 K/uL (130-400); RDW Coefficient of Variation 16.2 % (11.5-14.5); RDW Standard Deviation 56.4 fL (36.4-46.3); Red Blood Count 4.09 M/uL (4.2-5.4); White Blood Count 19.94 K/uL (4.8-10.8)
[2019-12-28 07:33] LABS: BUN Creatinine Ratio 38.4 (10-20); Calcium 9.4 mg/dl (8.5-10.1); Creatinine Clr Calc Pharmacy 35.3 ml/min; Est GFR (African American) 32.9; Est GFR (Non-African American) 28.4; Magnesium 2.9 mg/dl (1.8-2.4); Potassium 5.1 mmol/L (3.5-5.1)
[2019-12-28] MEDS: LABETALOL HCL 100 MG TAB PO SCH (07:55)
[2019-12-28] MEDS: GABAPENTIN 100 MG CAP PO SCH ×3 (07:55→20:31)
[2019-12-28] MEDS: predniSONE 10 MG TABLET PO SCH (07:56)
[2019-12-28] MEDS: ASPIRIN 81 MG ECTAB PO SCH (07:56)
[2019-12-28] MEDS: PANTOprazole 40 MG TAB PO SCH (07:57)
[2019-12-28] MEDS: ACETAMINOPHEN 325 MG TAB PO PRN (07:58)
[2019-12-28] MEDS: DOXYCYCLINE HYCLATE 100 MG CAP PO SCH (07:58)
[2019-12-28] MEDS: INSULIN GLARGINE SOLOSTAR 100 UNITS/ML 3 ML PEN SC SCH ×2 (08:48→20:37)
[2019-12-28] MEDS: INSULIN ASPART 100 UNITS/ML 3 ML PEN SC SCH ×4 (08:49→20:38)
--- NOTE | 2019-12-28 11:07 | Hospitalist Progress Note ---
Date of Service December 28, 2019 Assessment & Plan (1) Acute kidney injury superimposed on chronic kidney disease: Recent diuretics and high dose steroids taken over the weekend (extra lasix and metolazone). Nephrology saw her today and dc IVF and asked to continue to hold Lasix, losartan and spironolactone and reassess BMP in am. (2) Peripheral edema: Worsening peripheral edema prompting recent increase in diuretics. Possibly medication related. Cont prednisone for now, stop amlodipine, and reduced gabapentin by 50%. PCP requesting Echo to rule out right heart failure. Has known h/o CHAZ and is compliant with CPAP. (3) HTN (hypertension): Stopped amlodipine 2/2 peripheral edema. Losartan on hold in setting of KALPANA. Cont labetalol per home regimen. Elevated blood pressures but patient very anxious and she feels this is contributing. will offer anxiety meds PRN and may need to consider clonidine or hydralazine IV. (4) Jaw claudication: Two weeks of symptoms, better with steroids. Concern for GCA. Temporal biopsy per surgery in am. ESR elevated to 48, however, patient has been on high dose steroids for the past 3 days. (5) Leukocytosis: She does not have bilateral cellulitis. Doxycycline was stopped. Leukocytosis is secondary to steroid use. (6) Diabetes mellitus: Uncontrolled with recent a1c of 9.1. Cont with basal/bolus insulin in the hospital. PCP requests that she have JARDIANCE stopped at time of discharge. METFORMIN will also nee to be stopped 2/2 increased creatinine. PCP will manage adjustment of medications in follow-up. (7) CHAZ treated with BiPAP: CPAP qHS (8) DVT prophylaxis: Heparin-held for procedure Full Code Dispo-to home when medically stable. Pam Thompson DO [facility] Hospitalist Admission and Anticipated Discharge Date Admission Date: December 27, 2019 Subjective Pt reports feeling very anxious about being in the hospital and wants to go home She is tremulous She reports some loose bowel movements and feels self-conscious about this. Reports jaw claudication and jaw fatigue on the left with chewing recently for the last few weeks. Reports intermittent pain in this jaw that improved on a recent steroid burst. The pain returned and she asked CP for another pack-started pred 50mg daily on Sat prior to admission She is currently feeling well and is reporting no symptoms Reports some worsening leg swelling recently Denies SOB or JAMES Review of Systems Review of Systems: All systems reviewed & are unremarkable except as noted in Subjective Physical Exam Physical Exam: CONSTITUTIONAL: obese, vitals as above, generally well- appearing EYES: pupils are round and equal bilaterally, normal conjunctivae, no scleral icterus. No gross visual deficits. ENT: external ear and nose normal, oropharynx clear. No TTP of TMJ on jaw or left mandibular area, no submandibular or cervical LAD palpable. Palpable temporal artery on the left. NECK: trachea midline, no LAD RESPIRATORY: clear to auscultation bilaterally, no crackles, rales or wheezes, normal respiratory effort CARDIOVASCULAR: regular rate and rhythm, S1 and 2 heard without murmurs, gallops or rubs, no JVD, 2+ peripheral edema in lower extremities. CHEST: inspection of chest was normal GASTROINTESTINAL: normal bowel sounds, soft, nontender, nondistended MUSCULOSKELETAL: strength 5/5 throughout, head is normocephalic and atraumatic SKIN: warm and dry NEUROLOGIC: CN 2-12 grossly intact, no sensory deficit, normal cognition, normal speech, no gross focal deficits. PSYCHIATRIC: alert cooperative and oriented to person, place and time. Results & Data Results & Data ([facility]) Vital Signs (Past 12 Hours) Vital Signs Temp Pulse Pulse Resp BP Pulse Ox 12/28/19 08:15 70 12/28/19 07:15 36.8 C 71 16 129/68 90 12/28/19 04:00 36.2 C L 63 18 130/64 92 12/28/19 03:15 59 L 16 94 12/28/19 00:00 73 12/27/19 23:49 36.5 C 62 18 138/56 L 96 Laboratory Results Short CBC 12/27/19 12/28/19 Range/Units 10:46 06:23 WBC 22.57 H 19.94 H (4.8-10.8) K/uL Hgb 12.0 12.0 (12.0-16.0) g/dL Hct 37.9 39.0 (37-47) % Plt Count 368 339 (130-400) K/uL [facility] 12/27/19 12/28/19 10:46 06:23 Sodium 137 141 Potassium 4.9 5.1 Chloride 105 107 Carbon Dioxide 22 25 BUN 60 H 67 H Creatinine 1.66 H 1.74 H Glucose 260 H 180 H Calcium 9.9 9.4 Cardiac Enzymes 12/27/19 Range/Units 10:46 Troponin I < 0.015 (0-0.045) ng/ml Liver Function 12/27/19 Range/Units 10:46 Total Bilirubin 0.2 (0.2-1) mg/dl AST < 3 L (15-37) U/L ALT 20 (12-78) U/L Alkaline Phosphatase 134 H (45-117) U/L Albumin 3.7 (3.4-5.0) gm/dl Urine 12/27/19 Range/Units 11:25 Urine Color Yellow Urine Appearance Clear (Clear) Urine pH 5.0 (4.5-7.5) Ur Specific [place] 1.020 (1.000-1.030) Urine Protein Negative (Negative) Urine Glucose (UA) 3+ H (Negative) Medications Administered Current Inpatient Medications Acetaminophen (Tylenol) 650 mg PO Q4H PRN PRN Reason: Pain or Fever Stop: 01/26/20 15:50 Last Admin: 12/28/19 07:58 Dose: 650 mg Documented by: Amlodipine Besylate (Norvasc) 5 mg PO QPM [facility] Stop: 01/26/20 20:59 Last Admin: 12/27/19 20:44 Dose: 5 mg Documented by: Ascorbic Acid (Vitamin C) 500 mg PO QDL [facility] Stop: 01/27/20 11:29 Aspirin (Ecotrin Ectab) 81 mg PO QAM [facility] Stop: 01/27/20 08:59 Last Admin: 12/28/19 07:56 Dose: 81 mg Documented by: Atorvastatin Calcium (Lipitor) 80 mg PO QDL [facility] Stop: 01/27/20 11:29 Cetirizine HCl (Zyrtec) 5 mg PO HS [facility] Stop: 01/26/20 20:59 Last Admin: 12/27/19 20:48 Dose: 5 mg Documented by: Nystatin 30 ml/ Dexamethasone 3.75 mg/ Diphenhydramine HCl 300 mg/ Sucrose 45 ml/Microcrystalline Cellulose 45 ml/ BARCODE IDENTIFIER 1 ea 0 ml PO QID PRN PRN Reason: SORE MOUTH Stop: 01/26/20 16:32 Dextrose (Dextrose 50%) 25 - 50 ml IV UD PRN; Protocol PRN Reason: Hypoglycemia Protocol Stop: 01/26/20 16:01 Doxycycline Hyclate (Vibramycin) 100 mg PO BID [facility] Stop: 01/03/20 20:59 Last Admin: 12/28/19 07:58 Dose: 100 mg Documented by: Fluticasone Propionate (Flonase) 2 sprays TANIYA QPM [facility] Stop: 01/26/20 20:59 Last Admin: 12/27/19 20:42 Dose: 2 sprays Documented by: Gabapentin (Neurontin) 200 mg PO TID [facility] Stop: 01/26/20 20:59 Last Admin: 12/28/19 07:55 Dose: 200 mg Documented by: Glucagon (Glucagen) 1 mg SQ UD PRN; Protocol PRN Reason: Hypoglycemia Protocol Stop: 01/26/20 16:01 Glucose (Dex4 Glucose) 4 - 8 tabs PO UD PRN; Protocol PRN Reason: Hypoglycemia Protocol Stop: 01/26/20 16:01 Glucose (Glucose 40%) 15 - 30 gm PO UD PRN; Protocol PRN Reason: Hypoglycemia Protocol Stop: 01/26/20 16:01 Heparin Sodium (Porcine) (Heparin Sodium (Porcine)) 5,000 units SQ Q8 [facility] Stop: 01/26/20 21:59 Last Admin: 12/28/19 06:17 Dose: Not Given Documented by: Insulin Aspart (Novolog Flexpen) 0 units SC ACHS [facility] Stop: 01/26/20 16:29 Last Admin: 12/28/19 08:49 Dose: 3 units Documented by: Insulin Glargine (Lantus Solostar Pen) 0 units SC BID [facility]; Protocol Stop: 01/26/20 20:59 Last Admin: 12/28/19 08:48 Dose: 10 units Documented by: Labetalol HCl (Normodyne) 100 mg PO QAM [facility] Stop: 01/27/20 08:59 Last Admin: 12/28/19 07:55 Dose: 100 mg Documented by: Labetalol HCl (Normodyne) 200 mg PO QDD [facility] Stop: 01/26/20 16:29 Last Admin: 12/27/19 16:43 Dose: 200 mg Documented by: Miscellaneous (Order Awaiting Action) 1 ea N/A QS [facility] Stop: 01/27/20 00:00 Last Admin: 12/28/19 07:53 Dose: Not Given Documented by: Miscellaneous (Carbohydrates For Hypoglycemia) 15 - 30 gm PO UD PRN PRN Reason: Hypoglycemia Protocol Stop: 01/26/20 16:01 Montelukast Sodium (Singulair) 10 mg PO QPM [facility] Stop: 01/26/20 20:59 Last Admin: 12/27/19 20:47 Dose: 10 mg Documented by: Oxycodone/Acetaminophen (Percocet 5mg/325mg) 1 tab PO Q8H PRN PRN Reason: Pain Stop: 01/10/20 14:29 Pantoprazole Sodium (Protonix) 40 mg PO DAILY [facility] Stop: 01/27/20 08:59 Last Admin: 12/28/19 07:57 Dose: 40 mg Documented by: Polyethylene Glycol (Miralax Powder Packet) 17 gm PO DAILY PRN PRN Reason: Constipation Stop: 01/26/20 15:50 Prednisone (Prednisone) 40 mg PO DAILY [facility]; Taper Stop: 01/04/20 08:59 Last Admin: 12/28/19 07:56 Dose: 40 mg Documented by:
[2019-12-28] MEDS: ATORVASTATIN 40 MG TAB PO SCH (11:29)
[2019-12-28] MEDS: ASCORBIC ACID 500 MG TAB PO SCH (11:29)
--- NOTE | 2019-12-28 13:15 | Consultation Report ---
DATE OF CONSULTATION: 12/28/2019 NEPHROLOGY CONSULTATION NOTE REASON FOR CONSULT: Acute renal failure. HISTORY OF PRESENT ILLNESS: The patient is a 74-year-old female with history of diabetes, but fairly normal-appearing baseline creatinine of around 1.1, was asked by PCP's office to come to the hospital because of abnormal outpatient labs, which showed a creatinine of 1.7 and a potassium of 5.9. She has been noticing some worsening lower extremity swelling and Lasix was increased from 40 daily to 80 over the weekend, but she only did that one time and also took 1 dose of p.r.n. metolazone. She was also complaining of left-sided jaw discomfort, for which she was prescribed a Medrol pack. Workup done in the Emergency Department yesterday showed potassium was no longer abnormal, but renal function is still abnormal with a creatinine of 1.74 this morning with a BUN of 67. Lactic acid was also elevated initially, but then normalized and so was magnesium. Urine sediment was completely bland with no blood and no protein. After admission, the patient's Lasix, losartan, spironolactone and metolazone were held. Even now she is not getting any of those. Blood pressure is starting to run high, but she is completely asymptomatic otherwise and is eager to go home. Because of the leukocytosis, she has been cultured broadly and given broad-spectrum antibiotic. MEDICATIONS: Home medication list was reviewed in detail and is quite extensive. Of special interest to nephrology, she does take losartan, metolazone as needed, spironolactone, potassium chloride, Lasix 40 daily, Jardiance, amlodipine and other medications. She denies taking any NSAIDs prior to hospitalization. ALLERGIES: ALLERGY LIST WAS REVIEWED AND IT INCLUDES CLARITHROMYCIN. SOCIAL HISTORY: She is and lives with her . No smoking, no alcohol. FAMILY HISTORY: Negative for renal disease or dialysis. 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 REVIEW OF SYSTEMS: As detailed in HPI; unless stated otherwise, 12 systems reviewed and negative. PHYSICAL EXAMINATION: GENERAL: Elderly white female who is obese. She is awake, alert, oriented x3. She gave me a pretty detailed account of all her medical problems. VITAL SIGNS: Blood pressure 171/73, pulse 74, temperature 36.6, 93% on room air, respiratory rate 18. HEENT: Mucous membranes moist. NECK: Supple. No jugular venous distention. CHEST: Bilaterally clear to auscultation. CARDIOVASCULAR: S1 and S2 regular. ABDOMEN: Soft, nontender, obese. EXTREMITIES: Show 1-2+ edema with some redness. As per patient, this is significantly worse than her baseline. NEUROLOGIC: Awake, alert, oriented x3. Moving all 4 extremities. LABORATORY TESTS: Urine sediment done yesterday showed negative blood, negative protein. Urine sodium was 84. Chest x-ray was unremarkable other than mild cardiomegaly. Sodium 141, potassium 5.1, BUN 67, creatinine 1.74 this morning. Lactic acid was slightly elevated at 2.2 on admission yesterday, now normal. Magnesium 2.9. White count 20,000, hemoglobin 12.0. ASSESSMENT AND PLAN: A 74-year-old female with acute kidney injury with hyperkalemia. Acute kidney injury: This appears hemodynamic. She does not appear to be volume depleted given worsening edema as well as weight gain, plus significantly higher blood pressure, but at this time, I would like to hold Lasix and not give IV fluid for today and see how the renal function trends tomorrow. She is completely asymptomatic at this time. It is somewhat hard to assess her fluid status because I do not know for sure how much of the edema is obesity related and how much is actual fluid retention as I have not seen the patient before, but the patient claims that the edema is significantly worse than usual. Agree with holding losartan, Lasix, spironolactone and potassium supplement for the time being. Also, do not give metolazone. Recommendation for outpatient will be done at the time of discharge. ANKUR
--- NOTE | 2019-12-28 15:33 | Electrocardiogram Report ---
Test Reason : Blood Pressure : / mmHG Vent. Rate : 062 BPM Atrial Rate : 062 BPM P-R Int : 158 ms QRS Dur : 084 ms QT Int : 410 ms P-R-T Axes : 065 058 104 degrees QTc Int : 416 ms Normal sinus rhythm Nonspecific ST and T wave abnormality Abnormal ECG When compared with ECG of 27-DEC-2019 11:10, Criteria for Inferior infarct are no longer Present Confirmed by Faizan Vale ([id number]) on 12/28/2019 3:33:00 PM Referred By: Ferny Sr Confirmed By:Faizan Vale
--- NOTE | 2019-12-28 15:53 | Electrocardiogram Report ---
Test Reason : Blood Pressure : / mmHG Vent. Rate : 067 BPM Atrial Rate : 067 BPM P-R Int : 170 ms QRS Dur : 082 ms QT Int : 396 ms P-R-T Axes : 067 062 098 degrees QTc Int : 418 ms Normal sinus rhythm Normal ECG When compared with ECG of 27-DEC-2019 16:01, (unconfirmed) No significant change was found Confirmed by Faizan Vale ([id number]) on 12/28/2019 3:53:41 PM Referred By: Ferny Sr Confirmed By:Faizan Vale
--- NOTE | 2019-12-28 17:09 | Surgery Consultation ---
Date of Consultation December 28, 2019 Assessment & Plan (1) Jaw claudication: pt is a 74 year-old female who was admitted to hospital for acute renal injury with chronic left jaw pain, IMP: left jaw pain, I discussed pt about temporal artery biopsy, but pt dose not want to do surgery, pt wants to wait, D/W benefits, risks and alternatives of the surgery, pt is still not have surgery done, sign off, please call if pt wants to do biopsy, Thanks Supervising Physician Co-Signing Physician Notes Patient is a 74-year-old female with history of diabetes, trigeminal neuralgia, COPD and other medical problems presents with history of hyperkalemia--noted on outpatient lab and worsening renal function. Patient's diuretics dose was increased by her PCP due to worsening lower extremity edema. She is also currently taking Medrol Dosepak for left-sided jaw pain. She was recently discontinued on carbamazepine by her neurologist secondary to side effects. Patient states having noted to have dysphagia to liquids 2 weeks ago which currently resolved after being started on PPI. She noticed chronic worsening lower extremity swelling associated with erythema. Please review HPI for complete details of presentation. On exam patient is obese, no apparent distress, normocephalic atraumatic, lungs are clear to auscultation, S1-S2, no murmur, abdomen soft, nontender, normal bowel sounds present. Bilateral lower extremity edema, erythema noted. Grossly no focal neurological deficits. Oral thrush noted. Patient is admitted for management of acute kidney injury, leukocytosis, possible lower extremity cellulitis. Acute kidney injury likely secondary to diuretics. Given KALPANA, lactic acidosis will hold diuretics, losartan. IV fluids. Leukocytosis likely secondary to Medrol Dosepak. Empirically treat with doxycycline for possible cellulitis although likely leg erythema secondary to chronic venous stasis. Venous Dopplers negative for DVT. Jaw pain: unclear etiology. DD: Secondary to trigeminal neuralgia. Continue Medrol Dosepak given improvement of jaw pain. CT head, neck showed no acute process. May need dental evaluation as outpatient. Also needs evaluation for intermittent dysphagia with GI as outpatient. Follow-up cultures. Monitor renal function. Hypermagnesemia likely secondary to KALPANA. Currently potassium levels within normal limits while in ED. I personally reviewed the record. Patient is interviewed and examined at bedside. Patient's care is coordinated with Shelli Pina PA-C. Please refer to the documentation above for details of patient's presentation and for discussion of other issues. History of Present Illness Attending Physician: Pam Thompson DO History of Present Illness Chief Complaint: jaw pain, sent for abn labwork Primary Care Provider: Ferny Sr DO This is a 74yo F with a PMH of DM II, h/o CVA, h/o trigeminal neuralgia s/p nerve decompression, s/p bilateral carotid endarterectomy, COPD, CHAZ on BiPAP and other medical problems listed below who presents from PCPs office with abnormal lab work. Was seen by PCP Dr. Sr in clinic on Friday, December 23 and had routine lab work, which revealed hyperkalemia of 5.9 and elevated creatinine of 1.7 (baseline ~1.1) and was directed to come to ED for further evaluation. Had been noticing worsening lower extremity swelling and Dr. Sr had increased Lasix from 40 to 80 mg over the weekend. Denies using any nsaids. During PCP visit, patient was also started on Medrol Dosepak due to 2 weeks of worsening left-sided jaw discomfort noted mostly when chewing. Also has history of trigeminal neuralgia s/p nerve decompression performed at [facility] 30 years ago. Has been on carbamazepine for 30 years up until 3 weeks ago when neurology discontinued medication due to possible side effect of tremors. Patient feels that jaw pain is aching in nature now and different than "electric shocks" like trigeminal neuralgia pain from the past. Has also had worsening BLE redness over the past few weeks but feels its associated with leg swelling. Denies any warmth or drainage but notes that it is somewhat painful. Denies any fever, chills, lightheadedness, headache, nasal congestion, sinus tenderness, cough, chest pain, SOB, wheezing, nausea, vomiting, abdominal pain, dysuria, diarrhea and constipation. I ( Radha Sosa MD ) got a call for consult temporal artery biopsy, I reviewed pt's H/P, labs, pt has some left jaw pain, no pain on temporal area, pt had right temporal artery biopsy 2 years ago which was negative, pt denies any headache. Allergies Allergy/AdvReac Type Severity Reaction Status Date / Time clarithromycin Allergy BURNING Verified 11/18/19 11:11 MOUTH Home Medications Home Medications Medication Instructions Recorded Confirmed Type Tradjenta 5 mg PO QDL 11/12/18 12/27/19 History amlodipine 5 mg PO QPM 11/12/18 12/27/19 History ascorbic acid (vitamin C) [Vitamin 500 mg PO QDL 11/12/18 12/27/19 History C] aspirin 81 mg PO QAM 11/12/18 12/27/19 History atorvastatin 80 mg PO QDL 11/12/18 12/27/19 History azelastine-fluticasone 1 spray INTRANASAL BID 11/12/18 12/27/19 History fluticasone propionate [Flonase 2 spray INTRANASAL QPM 11/12/18 12/27/19 History Allergy Relief] furosemide 40 mg PO QAM 11/12/18 12/27/19 History glimepiride 4 mg PO QAM 11/12/18 12/27/19 History labetalol 200 mg PO QDD 11/12/18 12/27/19 History losartan 100 mg PO QPM 11/12/18 12/27/19 History metolazone 5 mg PO UD PRN 11/12/18 12/27/19 History montelukast 10 mg PO QPM 11/12/18 12/27/19 History oxycodone-acetaminophen [Percocet] 1 tab PO Q8H PRN 11/12/18 12/27/19 History spironolactone 100 mg PO QDL 11/12/18 12/27/19 History Magic Mouth Wash 1 dose PO QID PRN 04/12/19 12/27/19 History labetalol 100 mg PO QAM 04/12/19 12/27/19 History empagliflozin 25 mg tablet 25 mg PO DAILY #30 tab 11/18/19 12/27/19 Rx gabapentin 200 mg PO TID 12/27/19 12/27/19 History insulin glargine [Lantus Solostar 42 unit SUBCUT DAILY 12/27/19 12/27/19 History U-100 Insulin] levocetirizine 2.5 mg PO HS 12/27/19 12/27/19 History omeprazole 20 mg PO DAILY 12/27/19 12/27/19 History potassium chloride 10 meq PO DAILY 12/27/19 12/27/19 History repaglinide 0.5 mg PO TID 12/27/19 12/27/19 History Past Med/Surg History Medical History Anxiety (Resolved) Asthma Reports rarely uses PRN INH CKD (chronic kidney disease) stage 3, GFR 30-59 ml/min Depression (Resolved) Diabetes mellitus, type 2 NIDDM Diabetic neuropathy BOTH FEET AND LEGS; Glaucoma Hearing deficit Left ear - no hearing aids History of carotid stenosis s/p BL endarterectomy History of gastric ulcer History of skin cancer History of trigeminal neuralgia s/p surgery Hx of congestive heart failure Hyperlipidemia Hypertension Osteoarthritis 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 Stroke 2003 - INTERMITTENAT VERTIGO AND WEAKNESS ON RIGHT ARM. Surgical History History of bilateral carotid endarterectomy History of cholecystectomy History of colonoscopy w/ polypectomy History of esophagogastroduodenoscopy (EGD) History of surgery Trigeminal decompression 1990s History of surgical removal of ganglion cyst RIGHT History of tonsillectomy and adenoidectomy History of tooth extraction History of total shoulder replacement Rt 11/14/17 - Elective Glidescope #3 due to Grade 3 View and difficulty visualizing cords, ETT #7.0. Patient re-positioned twice. A-Line placed. 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 Other Information That Helps Us Care for You: No Feels Safe at Home: Yes Safety Concerns: Feels Safe At This Time Smoking Status: Former smoker Tobacco Type: cigarettes ; Cigarettes Per Day: 20 ; Do You Dip or Chew Tobacco: No ; Number of Years Since Quit: 8 ; Second Hand Exposure: No ; Tobacco Cessation Education Requested by Patient: No Hx Alcohol Use: No Hx Substance Use: No Review of Systems Review of Systems: At least ten systems reviewed and negative except as noted in the HPI. Allergies Allergy/AdvReac Type Severity Reaction Status Date / Time clarithromycin Allergy BURNING Verified 11/18/19 11:11 MOUTH Home Medications Home Medications Medication Instructions Recorded Confirmed Type Tradjenta 5 mg PO QDL 11/12/18 12/27/19 History amlodipine 5 mg PO QPM 11/12/18 12/27/19 History ascorbic acid (vitamin C) [Vitamin 500 mg PO QDL 11/12/18 12/27/19 History C] aspirin 81 mg PO QAM 11/12/18 12/27/19 History atorvastatin 80 mg PO QDL 11/12/18 12/27/19 History azelastine-fluticasone 1 spray INTRANASAL BID 11/12/18 12/27/19 History fluticasone propionate [Flonase 2 spray INTRANASAL QPM 11/12/18 12/27/19 History Allergy Relief] furosemide 40 mg PO QAM 11/12/18 12/27/19 History glimepiride 4 mg PO QAM 11/12/18 12/27/19 History labetalol 200 mg PO QDD 11/12/18 12/27/19 History losartan 100 mg PO QPM 11/12/18 12/27/19 History metolazone 5 mg PO UD PRN 11/12/18 12/27/19 History montelukast 10 mg PO QPM 11/12/18 12/27/19 History oxycodone-acetaminophen [Percocet] 1 tab PO Q8H PRN 11/12/18 12/27/19 History spironolactone 100 mg PO QDL 11/12/18 12/27/19 History Magic Mouth Wash 1 dose PO QID PRN 04/12/19 12/27/19 History labetalol 100 mg PO QAM 04/12/19 12/27/19 History empagliflozin 25 mg tablet 25 mg PO DAILY #30 tab 11/18/19 12/27/19 Rx gabapentin 200 mg PO TID 12/27/19 12/27/19 History insulin glargine [Lantus Solostar 42 unit SUBCUT DAILY 12/27/19 12/27/19 History U-100 Insulin] levocetirizine 2.5 mg PO HS 12/27/19 12/27/19 History omeprazole 20 mg PO DAILY 12/27/19 12/27/19 History potassium chloride 10 meq PO DAILY 12/27/19 12/27/19 History repaglinide 0.5 mg PO TID 12/27/19 12/27/19 History Patient History Medical History Anxiety (Resolved) Asthma Reports rarely uses PRN INH CKD (chronic kidney disease) stage 3, GFR 30-59 ml/min Depression (Resolved) Diabetes mellitus, type 2 NIDDM Diabetic neuropathy BOTH FEET AND LEGS; Glaucoma Hearing deficit Left ear - no hearing aids History of carotid stenosis s/p BL endarterectomy History of gastric ulcer History of skin cancer History of trigeminal neuralgia s/p surgery Hx of congestive heart failure Hyperlipidemia Hypertension Osteoarthritis 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 Stroke 2003 - INTERMITTENAT VERTIGO AND WEAKNESS ON RIGHT ARM. Surgical History History of bilateral carotid endarterectomy History of cholecystectomy History of colonoscopy w/ polypectomy History of esophagogastroduodenoscopy (EGD) History of surgery Trigeminal decompression 1990s History of surgical removal of ganglion cyst RIGHT History of tonsillectomy and adenoidectomy History of tooth extraction History of total shoulder replacement Rt 11/14/17 - Elective Glidescope #3 due to Grade 3 View and difficulty visualizing cords, ETT #7.0. Patient re-positioned twice. A-Line placed. 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 Other Information That Helps Us Care for You: No Feels Safe at Home: Yes Safety Concerns: Feels Safe At This Time Smoking Status: Former smoker Tobacco Type: cigarettes ; Cigarettes Per Day: 20 ; Do You Dip or Chew Tobacco: No ; Number of Years Since Quit: 8 ; Second Hand Exposure: No ; Tobacco Cessation Education Requested by Patient: No Hx Alcohol Use: No Hx Substance Use: No Physical Exam Constitutional: WD/WN, vitals as above well developed and well nourished Eyes: PERRL, conjunctivae normal, anicteric sclerae ENMT: external ear and nose normal, oropharynx normal Neck: trachea midline, no thyromegaly no tenderness on bilateral temporal area, no tenderness at left jaw, Respiratory: normal respiratory effort, lungs clear to auscultation Cardiovascular: RRR, no murmur, no edema Gastrointestinal (Abdomen): normal bowel sounds, soft, nontender, no hepatosplenomegaly Musculoskeletal: no cyanosis or clubbing, extremities motor strength 5/5 Skin: no rashes, warm and dry Neurologic: patellar DTR's 2+ bilat, sensation intact Psychiatric: Orientation: alert and oriented x 3 Results & Data Vital Signs (Past 12 Hours) Vital Signs Temp Pulse Pulse Resp BP Pulse Ox 12/28/19 14:59 36.7 C 86 19 197/74 H 90 12/28/19 14:49 85 12/28/19 11:49 36.6 C 74 18 171/73 H 93 12/28/19 08:15 70 12/28/19 07:15 36.8 C 71 16 129/68 90 Laboratory Results Abnormal lab results 12/27/19 12/28/19 12/28/19 Range/Units 20:37 06:23 06:23 WBC 19.94 H (4.8-10.8) K/uL RBC 4.09 L (4.2-5.4) M/uL MCHC 30.8 L (32-36) g/dL RDW Std Deviation 56.4 H (36.4-46.3) fL RDW Coeff of Mono 16.2 H (11.5-14.5) % MPV 10.5 H (7.4-10.4) fL Neut # (Auto) 17.19 H (1.4-6.5) K/uL Wilkinson # (Auto) 0.64 H (0.11-0.59) K/uL Immature Gran # (Auto) 0.17 H (0.00-0.02) K/uL BUN 67 H (7-18) mg/dl Creatinine 1.74 H (0.6-1.2) mg/dl BUN/Creatinine Ratio 38.4 H (10-20) Glucose 180 H (70-99) mg/dl POC Glucose 129 H (70-99) mg/dl Magnesium 2.9 H (1.8-2.4) mg/dl 12/28/19 12/28/19 Range/Units 07:46 11:37 WBC (4.8-10.8) K/uL RBC (4.2-5.4) M/uL MCHC (32-36) g/dL RDW Std Deviation (36.4-46.3) fL RDW Coeff of Mono (11.5-14.5) % MPV (7.4-10.4) fL Neut # (Auto) (1.4-6.5) K/uL Wilkinson # (Auto) (0.11-0.59) K/uL Immature Gran # (Auto) (0.00-0.02) K/uL BUN (7-18) mg/dl Creatinine (0.6-1.2) mg/dl BUN/Creatinine Ratio (10-20) Glucose (70-99) mg/dl POC Glucose 165 H 146 H (70-99) mg/dl Magnesium (1.8-2.4) mg/dl
[2019-12-28] MEDS: LABETALOL HCL 200 MG TAB PO SCH (17:45)
[2019-12-28] MEDS ORDERED: ALPRAZolam 0.5 MG TABLET PO STA (18:27)
[2019-12-28] MEDS ORDERED: LOPERAMIDE HCL 2 MG CAP PO STA (20:03)
[2019-12-28] MEDS ORDERED: LOPERAMIDE HCL 2 MG CAP PO PRN (20:04)
[2019-12-28] MEDS: MONTELUKAST SODIUM 10 MG TABLET PO SCH (20:31)
[2019-12-28] MEDS: FLUTICASONE PROPIONATE NA SPR 16 GM BTL NAE SCH (20:32)
[2019-12-28] MEDS: CETIRIZINE HCL 10 MG TABLET PO SCH (20:32)
[2019-12-29] MEDS: HEPARIN SOD 5,000 UNIT/0.5 ML VIAL SQ SCH ×3 (04:40→20:50)
[2019-12-29] MEDS: INSULIN ASPART 100 UNITS/ML 3 ML PEN SC SCH ×4 (08:09→20:49)
[2019-12-29] MEDS: INSULIN GLARGINE SOLOSTAR 100 UNITS/ML 3 ML PEN SC SCH ×2 (08:11→20:47)
[2019-12-29] MEDS: ASPIRIN 81 MG ECTAB PO SCH (08:12)
[2019-12-29] MEDS: PANTOprazole 40 MG TAB PO SCH (08:12)
[2019-12-29] MEDS: GABAPENTIN 100 MG CAP PO SCH ×3 (08:12→20:50)
[2019-12-29] MEDS: predniSONE 10 MG TABLET PO SCH (08:13)
[2019-12-29] MEDS: LABETALOL HCL 100 MG TAB PO SCH (08:14)
[2019-12-29] MEDS: ATORVASTATIN 40 MG TAB PO SCH (10:51)
[2019-12-29] MEDS: ASCORBIC ACID 500 MG TAB PO SCH (10:52)
[2019-12-29 11:23] LABS: Basophils # (auto) 0.01 K/uL (0-0.2); Basophils % (auto) 0.1 %; Eosinophils # (auto) 0.01 K/uL (0-0.5); Eosinophils % (auto) 0.1 %; Hematocrit (blood only) 38.7 % (37-47); Hemoglobin 12.4 g/dL (12.0-16.0); Immature Granulocytes # (auto) 0.15 K/uL (0.00-0.02); Immature Granulocytes % (auto) 0.8 %; Lymphocytes # (auto) 2.12 K/uL (1.2-3.4); Lymphocytes % (auto) 10.8 %; Mean Corpuscular Hemoglobin 29.5 pg (25-34); Mean Corpuscular Volume 92.1 fL (80-100); Mean Platelet Volume 10.1 fL (7.4-10.4); Monocytes # (auto) 1.03 K/uL (0.11-0.59); Monocytes % (auto) 5.3 %; Neutrophils # (auto) 16.24 K/uL (1.4-6.5); Neutrophils % (auto) 82.9 %; Platelet Count 328 K/uL (130-400); RDW Coefficient of Variation 16.1 % (11.5-14.5); RDW Standard Deviation 54.2 fL (36.4-46.3); White Blood Count 19.56 K/uL (4.8-10.8)
[2019-12-29 11:40] LABS: BUN Creatinine Ratio 38.7 (10-20); Blood Urea Nitrogen 58 mg/dl (7-18); C Reactive Protein < 0.29 mg/dl (0-0.29); Calcium 9.8 mg/dl (8.5-10.1); Carbon Dioxide 24 mmol/L (21-32); Chloride 108 mmol/L (98-107); Creatinine Clr Calc Pharmacy 41.2 ml/min; Est GFR (African American) 39.7; Est GFR (Non-African American) 34.2; Glucose 108 mg/dl (70-99); Potassium 4.7 mmol/L (3.5-5.1); Sodium 138 mmol/L (136-145)
--- NOTE | 2019-12-29 12:44 | Progress Notes ---
DATE: 12/29/2019 NEPHROLOGY PROGRESS NOTE SUBJECTIVE: Overnight, no new issues. Renal function has improved slightly. OBJECTIVE: VITAL SIGNS: Blood pressure is 146/72, pulse rate 59, temperature 36.5, 93% on room air. HEENT: Mucous membranes moist. NECK: Supple. No jugular venous distention. CHEST: Bilaterally clear to auscultation. CARDIOVASCULAR: S1, S2 regular. ABDOMEN: Soft, nontender. EXTREMITIES: Show 2+ edema and the patient is very concerned about the degree of edema she has. LABORATORY TEST: From this morning reviewed and shows creatinine improved to 1.49 and BUN is 58. WBC count also improved slightly and is down to 19,000. ASSESSMENT: A 74-year-old female with acute kidney injury with hyperkalemia. 1. Acute kidney injury. 2. Hyperkalemia. RECOMMENDATIONS: Renal function has improved and getting close to baseline. For discharge, I would send her home on Lasix alone. Hold metolazone, hold spironolactone and hold potassium supplement for now. She is very concerned about the lower extremity edema she has as well as the weight gain. Given this, I would like to use Lasix alone at 40 mg twice daily. Also hold losartan for the time being. She will need to have blood work done on Friday and follow up with PCP.
--- NOTE | 2019-12-29 15:12 | Surgery Progress Note ---
Date of Service pt wants to do left temporal artery biopsy, pt is still have left jaw pain, December 29, 2019 Assessment & Plan (1) Jaw claudication: pt is a 74 year-old female who was admitted to hospital for acute renal injury with chronic left jaw pain, IMP: left jaw pain, I discussed pt about temporal artery biopsy, but pt dose not want to do surgery, pt wants to wait, D/W benefits, risks and alternatives of the surgery, pt is still not have surgery done, sign off, please call if pt wants to do biopsy, Thanks 12/29/2019 3:10PM, pt wants to do left temporal artery biopsy, D/W benefits, risks and alternatives of the surgery, the risks - infection, bleeding, pt understood, she agrees with the surgery, I answered all questions, NPO after MN Supervising Physician Co-Signing Physician Notes Patient is a 74-year-old female with history of diabetes, trigeminal neuralgia, COPD and other medical problems presents with history of hyperkalemia--noted on outpatient lab and worsening renal function. Patient's diuretics dose was increased by her PCP due to worsening lower extremity edema. She is also currently taking Medrol Dosepak for left-sided jaw pain. She was recently discontinued on carbamazepine by her neurologist secondary to side effects. Patient states having noted to have dysphagia to liquids 2 weeks ago which currently resolved after being started on PPI. She noticed chronic worsening lower extremity swelling associated with erythema. Please review HPI for complete details of presentation. On exam patient is obese, no apparent distress, normocephalic atraumatic, lungs are clear to auscultation, S1-S2, no murmur, abdomen soft, nontender, normal bowel sounds present. Bilateral lower extremity edema, erythema noted. Grossly no focal neurological deficits. Oral thrush noted. Patient is admitted for management of acute kidney injury, leukocytosis, possible lower extremity cellulitis. Acute kidney injury likely secondary to diuretics. Given KALPANA, lactic acidosis will hold diuretics, losartan. IV fluids. Leukocytosis likely secondary to Medrol Dosepak. Empirically treat with doxycycline for possible cellulitis although likely leg erythema secondary to chronic venous stasis. Venous Dopplers negative for DVT. Jaw pain: unclear etiology. DD: Secondary to trigeminal neuralgia. Continue Medrol Dosepak given improvement of jaw pain. CT head, neck showed no acute process. May need dental evaluation as outpatient. Also needs evaluation for intermittent dysphagia with GI as outpatient. Follow-up cultures. Monitor renal function. Hypermagnesemia likely secondary to KALPANA. Currently potassium levels within normal limits while in ED. I personally reviewed the record. Patient is interviewed and examined at bedside. Patient's care is coordinated with Shelli Pina PA-C. Please refer to the documentation above for details of patient's presentation and for discussion of other issues. Subjective Pt reports feeling very anxious about being in the hospital and wants to go home She is tremulous She reports some loose bowel movements and feels self-conscious about this. Reports jaw claudication and jaw fatigue on the left with chewing recently for the last few weeks. Reports intermittent pain in this jaw that improved on a recent steroid burst. The pain returned and she asked CP for another pack-started pred 50mg daily on Sat prior to admission She is currently feeling well and is reporting no symptoms Reports some worsening leg swelling recently Denies SOB or JAMES Physical Exam Constitutional: WD/WN, vitals as above well developed and well nourished Eyes: PERRL, conjunctivae normal, anicteric sclerae ENMT: external ear and nose normal, oropharynx normal Neck: trachea midline, no thyromegaly Respiratory: normal respiratory effort, lungs clear to auscultation Cardiovascular: RRR, no murmur, no edema Gastrointestinal (Abdomen): normal bowel sounds, soft, nontender, no hepatosplenomegaly Musculoskeletal: no cyanosis or clubbing, extremities motor strength 5/5 Skin: no rashes, warm and dry Neurologic: patellar DTR's 2+ bilat, sensation intact Psychiatric: Orientation: alert and oriented x 3 Results & Data Vital Signs (Past 12 Hours) Vital Signs Temp Pulse Pulse Resp BP Pulse Ox 12/29/19 07:15 36.5 C 59 L 16 146/72 H 93 12/29/19 03:31 69 15 91
[2019-12-29] MEDS: LABETALOL HCL 200 MG TAB PO SCH (16:22)
[2019-12-29] MEDS: FLUTICASONE PROPIONATE NA SPR 16 GM BTL NAE SCH (20:47)
[2019-12-29] MEDS: MONTELUKAST SODIUM 10 MG TABLET PO SCH (20:48)
[2019-12-29] MEDS: CETIRIZINE HCL 10 MG TABLET PO SCH (20:49)
--- NOTE | 2019-12-29 21:25 | Hospitalist Progress Note ---
Date of Service December 29, 2019 Assessment & Plan (1) Acute kidney injury superimposed on chronic kidney disease: Serum creatinine at time of admission 1.36 compared to baseline of 1.0. Creatinine patrizia as high as 1.74. Diuretics held. Creatinine today = 1.49. Follow. (2) Jaw claudication: Patient initially declined temporal artery biopsy, but now would like to proceed. General Surgery consulted and can do procedure tomorrow. (3) Chronic diastolic (congestive) heart failure: Chest x-ray in 2013 demonstrated congestive heart failure. Echo showed normal LVEF with evidence of diastolic dysfunction. Now with dependent edema, but no CHF appreciated on exam or chest x-ray. Echo today shows normal LVEF with grade I diastolic dysfunction. Chronic left ventricular diastolic heart failure, compensated. (4) Dependent edema: Dependent edema without evidence of pulmonary edema. Has COPD and sleep apnea, but RV size and systolic function normal on echo. Contributing factors could include meds (amlodipine, gabapentin, prednisone) and venous insufficiency. KALPANA associated with diuretic therapy. Amlodipine stopped. Gabapentin dose decreased. Taper and DC prednisone as soon as possible. Elevate legs. Consider TEDS if tolerated. (5) HTN (hypertension): Amlodipine stopped because of dependent edema. Continue labetalol. (6) COPD, moderate: Pulmonary status stable. (7) CHAZ treated with BiPAP: Continue BiPAP with nocturnal O2. 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 Hold glimepiride, repaglinide, and empagliflozin during hospital stay. Currently receiving prednisone. FBS today = 165. Lantus / NovoLog per protocol. (9) DVT prophylaxis: SQ heparin- hold for temporal artery biopsy. Ambulate. (10) Discharge planning issues: Anticipated discharge to home. Internal Medicine follow-up with Dr. Sr. Admission and Anticipated Discharge Date Admission Date: December 27, 2019 Subjective Recheck for multiple problems. Patient seen in their room around 1330. Still has some left jaw pain with mastication. Has reconsidered temporal artery biopsy and would like to proceed. Persistent lower extremity edema. Review of Systems: Constitutional- no fever. Cardiac- no chest pain. Pulmonary- no cough or SOB. GI- no nausea, vomiting, diarrhea, melena, hematochezia. - no urinary symptoms. Otherwise, as noted above. Physical Exam Constitutional: no acute distress Respiratory: no respiratory distress Auscultation: lungs clear to auscultation bilaterally Cardiovascular: Rate/Rhythm: regular rate and regular rhythm Heart Sounds: no gallop Vessels: no JVD Extremities: + edema (2+ pretibial); no calf tenderness Gastrointestinal (Abdomen): normal bowel sounds, soft, nontender, no hepatosplenomegaly Musculoskeletal: Extremities: no cyanosis Skin: no rashes, warm and dry Psychiatric: Orientation: alert and oriented x 3 Results & Data Results & Data ([facility]) Vital Signs (Past 12 Hours) Vital Signs Temp Pulse Resp BP Pulse Ox 12/29/19 15:13 36.7 C 65 18 146/71 H 92 Laboratory Results 12/29/19 11:08 12/29/19 11:08
[2019-12-30 07:57] LABS: Est GFR (African American) 43.9; Est GFR (Non-African American) 37.9
[2019-12-30 07:58] LABS: Calcium 9.4 mg/dl (8.5-10.1); Creatinine Clr Calc Pharmacy 44.8 ml/min
[2019-12-30] MEDS ORDERED: INSULIN GLARGINE SOLOSTAR 100 UNITS/ML 3 ML PEN SC SCH (08:10)
[2019-12-30] MEDS: GABAPENTIN 100 MG CAP PO SCH ×2 (08:18→15:08)
[2019-12-30] MEDS: predniSONE 10 MG TABLET PO SCH (08:19)
[2019-12-30] MEDS: PANTOprazole 40 MG TAB PO SCH (08:19)
[2019-12-30] MEDS: ASPIRIN 81 MG ECTAB PO SCH (08:19)
[2019-12-30] MEDS: LABETALOL HCL 100 MG TAB PO SCH (08:19)
[2019-12-30] MEDS ORDERED: Nursing to Pharmacy Communication SCH ×2 (08:30→15:30)
[2019-12-30] MEDS: INSULIN ASPART 100 UNITS/ML 3 ML PEN SC SCH (09:09)
--- NOTE | 2019-12-30 10:01 | Progress Notes ---
DATE: 12/30/2019 NEPHROLOGY PROGRESS NOTE SUBJECTIVE: Overnight, no new issues. Renal function has improved even more. She is scheduled to have a temporal artery biopsy sometime today. OBJECTIVE: VITAL SIGNS: Blood pressure 160/75, pulse rate 71, temperature 36.5, 94% on CPAP at night. HEENT: Mucous membranes moist. NECK: Supple. No jugular venous distention. CHEST: Bilaterally clear to auscultation. CARDIOVASCULAR: S1, S2 regular. ABDOMEN: Soft, nontender, obese. EXTREMITIES: Show 1+ edema bilaterally, which she claims is lot more than her usual. LABORATORY TEST: From this morning was reviewed in detail and shows improved creatinine of 1.37, BUN is 52. Other electrolytes are unremarkable and within normal range. WBC count 19,000, platelet count 328. ASSESSMENT AND PLAN: 1. Acute renal failure. 2. Hyperkalemia. Renal function has improved and is getting close to baseline. For discharge, I would use Lasix alone 40 mg twice daily. For the time being, hold metolazone, hold spironolactone as well as potassium supplement as well as losartan. She will need to have blood work done on Friday and follow up with her PCP. She is very concerned about the lower extremity edema and the weight gain, and hopefully, 40 b.i.d. Lasix will be enough.
[2019-12-30] MEDS: ACETAMINOPHEN 325 MG TAB PO PRN ×2 (11:06→16:08)
[2019-12-30] MEDS: ASCORBIC ACID 500 MG TAB PO SCH (11:19)
[2019-12-30] MEDS: ATORVASTATIN 40 MG TAB PO SCH (11:19)
[2019-12-30] MEDS ORDERED: INSULIN ASPART 100 UNITS/ML 3 ML PEN SC SCH ×2 (12:00→17:30)
--- NOTE | 2019-12-30 12:12 | History & Physical Bridge Note ---
Date of Service December 30, 2019 History & Physical Bridge Note I have examined the patient, reviewed the History & Physical and in the interval since the performance of the History & Physical I have noted the following changes of clinical significance: no changes noted Supervising Physician Co-Signing Physician Notes Patient is a 74-year-old female with history of diabetes, trigeminal neuralgia, COPD and other medical problems presents with history of hyperkalemia--noted on outpatient lab and worsening renal function. Patient's diuretics dose was increased by her PCP due to worsening lower extremity edema. She is also currently taking Medrol Dosepak for left-sided jaw pain. She was recently discontinued on carbamazepine by her neurologist secondary to side effects. Patient states having noted to have dysphagia to liquids 2 weeks ago which currently resolved after being started on PPI. She noticed chronic worsening lower extremity swelling associated with erythema. Please review HPI for complete details of presentation. On exam patient is obese, no apparent distress, normocephalic atraumatic, lungs are clear to auscultation, S1-S2, no murmur, abdomen soft, nontender, normal bowel sounds present. Bilateral lower extremity edema, erythema noted. Grossly no focal neurological deficits. Oral thrush noted. Patient is admitted for management of acute kidney injury, leukocytosis, possible lower extremity cellulitis. Acute kidney injury likely secondary to diuretics. Given KALPANA, lactic acidosis will hold diuretics, losartan. IV fluids. Leukocytosis likely secondary to Medrol Dosepak. Empirically treat with doxycycline for possible cellulitis although likely leg erythema secondary to chronic venous stasis. Venous Dopplers negative for DVT. Jaw pain: unclear etiology. DD: Secondary to trigeminal neuralgia. Continue Medrol Dosepak given improvement of jaw pain. CT head, neck showed no acute process. May need dental evaluation as outpatient. Also needs evaluation for intermittent dysphagia with GI as outpatient. Follow-up cultures. Monitor renal function. Hypermagnesemia likely secondary to KALPANA. Currently potassium levels within normal limits while in ED. I personally reviewed the record. Patient is interviewed and examined at bedside. Patient's care is coordinated with Shelli Pina PA-C. Please refer to the documentation above for details of patient's presentation and for discussion of other issues.
--- NOTE | 2019-12-30 12:19 | Anesthesiology Consultation ---
Date of Service December 30, 2019 Assessment & Plan (1) Encounter for pre-operative examination: Chart Review Chart Review: Acceptable Risk for Surgery and Patient NOT seen in Pre Admission Testing Consults Requested none History Surgery Operation Date: 12/30/19 13:40 Proposed Procedures p Left Temporal Artery Biopsy - Radha Sosa MD Height/Weight Height: 5 ft 6 in Weight: 108 kg Allergies Allergy/AdvReac Type Severity Reaction Status Date / Time clarithromycin Allergy BURNING Verified 11/18/19 11:11 MOUTH Medications Home Medications Medication Instructions Recorded Confirmed Last Taken Tradjenta 5 mg PO QDL 11/12/18 12/27/19 12/26/19 amlodipine 5 mg PO QPM 11/12/18 12/27/19 12/26/19 ascorbic acid (vitamin C) [Vitamin 500 mg PO QDL 11/12/18 12/27/19 12/26/19 C] aspirin 81 mg PO QAM 11/12/18 12/27/19 12/26/19 atorvastatin 80 mg PO QDL 11/12/18 12/27/19 12/26/19 azelastine-fluticasone 1 spray INTRANASAL BID 11/12/18 12/27/19 12/26/19 fluticasone propionate [Flonase 2 spray INTRANASAL QPM 11/12/18 12/27/19 12/26/19 Allergy Relief] furosemide 40 mg PO QAM 11/12/18 12/27/19 12/26/19 glimepiride 4 mg PO QAM 11/12/18 12/27/19 12/26/19 labetalol 200 mg PO QDD 11/12/18 12/27/19 12/26/19 losartan 100 mg PO QPM 11/12/18 12/27/19 12/26/19 metolazone 5 mg PO UD PRN 11/12/18 12/27/19 12/26/19 montelukast 10 mg PO QPM 11/12/18 12/27/19 12/26/19 oxycodone-acetaminophen [Percocet] 1 tab PO Q8H PRN 11/12/18 12/27/19 12/26/19 spironolactone 100 mg PO QDL 11/12/18 12/27/19 12/26/19 Magic Mouth Wash 1 dose PO QID PRN 04/12/19 12/27/19 Unknown labetalol 100 mg PO QAM 04/12/19 12/27/19 12/26/19 empagliflozin 25 mg tablet 25 mg PO DAILY #30 tab 11/18/19 12/27/19 12/26/19 gabapentin 200 mg PO TID 12/27/19 12/27/19 12/26/19 insulin glargine [Lantus Solostar 42 unit SUBCUT DAILY 12/27/19 12/27/19 Unknown U-100 Insulin] levocetirizine 2.5 mg PO HS 12/27/19 12/27/19 12/26/19 omeprazole 20 mg PO DAILY 12/27/19 12/27/19 Unknown potassium chloride 10 meq PO DAILY 12/27/19 12/27/19 Unknown repaglinide 0.5 mg PO TID 12/27/19 12/27/19 Unknown Active Medications Generic Name Dose Route Start Last Admin Trade Name Freq PRN Reason Stop Dose Admin Acetaminophen 650 mg 12/27/19 15:51 12/30/19 11:06 Tylenol PO 01/26/20 15:50 650 mg Q4H PRN Administration Pain or Fever Ascorbic Acid 500 mg 12/28/19 11:30 12/30/19 11:19 Vitamin C PO 01/27/20 11:29 500 mg QDL STEVEN Administration Aspirin 81 mg 12/28/19 09:00 12/30/19 08:19 Ecotrin Ectab PO 01/27/20 08:59 81 mg QAM STEVEN Administration Atorvastatin Calcium 80 mg 12/28/19 11:30 12/30/19 11:19 Lipitor PO 01/27/20 11:29 80 mg QDL STEVEN Administration Cetirizine HCl 5 mg 12/27/19 21:00 12/29/19 20:49 Zyrtec PO 01/26/20 20:59 5 mg HS STEVEN Administration Fluticasone Propionate 2 sprays 12/27/19 21:00 12/29/19 20:47 Flonase TANIYA 01/26/20 20:59 2 sprays QPM STEVEN Administration Gabapentin 100 mg 12/28/19 21:00 12/30/19 08:18 Neurontin PO 01/27/20 20:59 100 mg TID STEVEN Administration Heparin Sodium (Porcine) 5,000 units 12/27/19 22:00 12/29/19 20:50 Heparin Sodium (Porcine) SQ 01/26/20 21:59 Not Given Q8 STEVEN Insulin Aspart 0 units 12/30/19 12:00 12/30/19 11:38 Novolog Flexpen SC 01/26/20 16:29 Not Given Q6 STEVEN Labetalol HCl 100 mg 12/28/19 09:00 12/30/19 08:19 Normodyne PO 01/27/20 08:59 100 mg QAM STEVEN Administration Labetalol HCl 200 mg 12/27/19 16:30 12/29/19 16:22 Normodyne PO 01/26/20 16:29 200 mg QDD STEVEN Administration Miscellaneous 1 ea 12/28/19 00:00 12/30/19 08:18 Order Awaiting Action N/A 01/27/20 00:00 Not Given QS STEVEN Montelukast Sodium 10 mg 12/27/19 21:00 12/29/19 20:48 Singulair PO 01/26/20 20:59 10 mg QPM STEVEN Administration Oxycodone/Acetaminophen 1 tab 12/27/19 14:30 12/30/19 04:13 Percocet 5mg/325mg PO 01/10/20 14:29 1 tab Q8H PRN Administration Pain Pantoprazole Sodium 40 mg 12/28/19 09:00 12/30/19 08:19 Protonix PO 01/27/20 08:59 40 mg DAILY STEVEN Administration Prednisone 30 mg 12/28/19 09:00 12/30/19 08:19 Prednisone PO 01/04/20 08:59 30 mg DAILY STEVEN Administration Taper NPO Date Last Intake of Fluids: 12/30/19 Time Last Intake of Fluids: 08:30 Date Last Intake of Solids: 12/29/19 Time Last Intake of Solids: 23:59 Past Medical History Medical History Anxiety (Resolved) Asthma Reports rarely uses PRN INH CKD (chronic kidney disease) stage 3, GFR 30-59 ml/min Depression (Resolved) Diabetes mellitus, type 2 NIDDM Diabetic neuropathy BOTH FEET AND LEGS; Glaucoma Hearing deficit Left ear - no hearing aids History of carotid stenosis s/p BL endarterectomy History of gastric ulcer History of skin cancer History of trigeminal neuralgia s/p surgery Hx of congestive heart failure Hyperlipidemia Hypertension Osteoarthritis 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 Stroke 2003 - INTERMITTENAT VERTIGO AND WEAKNESS ON RIGHT ARM. Exercise / Class Metabolic Activity III < 4 Walking/Shop/Light housework Past Family History Family History Father , age 96 of a stroke Stroke Coronary heart disease Mother , age 79 of an [place] Myocardial infarction Past Surgical History Surgical History History of bilateral carotid endarterectomy History of cholecystectomy History of colonoscopy w/ polypectomy History of esophagogastroduodenoscopy (EGD) History of surgery Trigeminal decompression 1990s History of surgical removal of ganglion cyst RIGHT History of tonsillectomy and adenoidectomy History of tooth extraction History of total shoulder replacement Rt 11/14/17 - Elective Glidescope #3 due to Grade 3 View and difficulty visualizing cords, ETT #7.0. Patient re-positioned twice. A-Line placed. Hx of dilation and curettage Past Anesthesia History No Hx of Anesthesia Complications and No Family Hx of Anesthesia Complications History of PONV No Hx of PONV and No Hx of Motion Sickness Social History Smoking Status: Former smoker tobacco type: cigarettes Smoking cigarettes per day: 20 Do You Dip or Chew Tobacco: No Hx Alcohol Use: No alcohol intake frequency: holidays/special occasions only Hx Substance Use: No substance use type: does not use Physical Exam Vital Signs Last Vital Signs Temp 36.5 C 12/30/19 07:13 Pulse 71 12/30/19 07:13 Resp 18 12/30/19 07:13 BP 160/75 H 12/30/19 07:13 Pulse Ox 94 12/30/19 07:13 Testing Laboratory Results 12/29/19 11:08 12/30/19 07:00 PT 10.5 Seconds (9.0-12.0) 12/27/19 10:46 INR 1.0 (0.9-1.1) 12/27/19 10:46 APTT 23.1 Seconds (21.0-31.0) 12/27/19 10:46 Urine Color Yellow 12/27/19 11:25 Urine Appearance Clear (Clear) 12/27/19 11:25 Urine pH 5.0 (4.5-7.5) 12/27/19 11:25 Ur Specific Dahlgren 1.020 (1.000-1.030) 12/27/19 11:25 Urine Protein Negative (Negative) 12/27/19 11:25 Urine Glucose (UA) 3+ (Negative) H 12/27/19 11:25 Urine Ketones Negative (Negative) 12/27/19 11:25 Urine Nitrite Negative (Negative) 12/27/19 11:25 Ur Leukocyte Esterase Negative (Negative) 12/27/19 11:25 12/27/19 13:25 Aerobic Blood Culture - Preliminary Blood No growth in Aerobic bottle after 48 hours. Anaerobic Blood Culture - Preliminary No growth in Anaerobic bottle after 48 hours. 12/27/19 13:23 Aerobic Blood Culture - Preliminary Blood No growth in Aerobic bottle after 48 hours. Anaerobic Blood Culture - Preliminary No growth in Anaerobic bottle after 48 hours. 12/30/19 12/30/19 11:21 06:46 POC Glucose 152 H 110 H Electrocardiogram Date: 12/28/19 Findings: + NSR @ (67) Normal sinus rhythm Normal ECG When compared with ECG of 27-DEC-2019 16:01, (unconfirmed) No significant change was found Confirmed by Faizan Vale ([id number]) on 12/28/2019 3:53:41 PM Chest X-Ray Date: 12/27/19 SINGLE VIEW CHEST CLINICAL HISTORY: Dyspnea. FINDINGS: An AP, portable, upright chest radiograph is compared to study dated 11/18/2018. The heart is enlarged noting atherosclerotic calcification of the thoracic aorta. The pulmonary vasculature is noncongested. Chronic interstitial thickening is similar to previous. Small calcified granulomas are incidentally noted. There is bibasilar atelectasis. No airspace consolidation or large pleural effusion is identified. No pneumothorax is seen. The skeletal structures are osteopenic. The bony thorax is grossly intact. There are bilateral shoulder arthroplasties in place. Degenerative change is noted throughout the thoracic spine. IMPRESSION: Cardiomegaly with no acute cardiopulmonary abnormality. Echocardiogram Date: 12/29/19 Grossly normal valvular structure and function. Moderate LVH EF 60-65% Grade 1 DD
[2019-12-30] MEDS ORDERED: CEFAZOLIN 2000MG 2,000 MG/15 ML SYR IV SCH (12:30)
[2019-12-30] MEDS ORDERED: LIDOCAINE HCL 2% 2 ML VIAL/AMP(20MG/ML) INFIL ONE (12:36)
[2019-12-30] MEDS ORDERED: fentaNYL citrate 100 MCG/2 ML VIAL ONE (12:36)
[2019-12-30] MEDS ORDERED: MIDAZOLAM HCL 1 MG/ML 2ML VIAL ONE (12:36)
[2019-12-30] MEDS ORDERED: PROPOFOL IV EMULSION 10 MG/ML 20 ML VIAL IV ONE ×2 (12:36→13:52)
[2019-12-30] MEDS ORDERED: LIDOCAINE HCL 1% 20 ML VIAL ONE (12:47)
[2019-12-30] MEDS ORDERED: BUPIVACAINE 0.5 % 5 MG/1 ML MPF 30ML VIAL ONE (12:47)
[2019-12-30] MEDS ORDERED: BACITRACIN OINT 15 GM TUBE ONE (12:47)
[2019-12-30] MEDS ORDERED: ONDANSETRON INJ 2 MG/ML 2 ML VIAL ONE (13:16)
--- NOTE | 2019-12-30 14:01 | Post Operative Brief Note ---
Immediate Post Op Note v1 Date of Surgery December 30, 2019 Pre & Post Diagnosis Operation Date: 12/30/19 13:40 Pre-Op Diagnosis: left JAW PAIN Post-Op Diagnosis: left JAW PAIN I identified the patient and participated in the time-out.: Yes Procedure Operation Date: 12/30/19 13:40 Actual Procedures p Left Temporal Artery Biopsy(Left) - Radha Sosa MD Surgeon Radha Sosa MD Obstetrics Gynecology Md surgical resident Estimated Blood Loss 3 Findings Consistent with Post-Op Diagnosis Fluids 300ml Specimens left temporal artery Anesthesia Type Local Complications none Disposition Accompanied Patient To Recovery: Yes Disposition: Recovery Room Overlapping Procedure I was immediately available: during the entire case.
--- NOTE | 2019-12-30 14:11 | Anesthesiology Progress Note ---
Date of Service December 30, 2019 Anesthesia Post Procedure Vital Signs Vital Signs: Temp Pulse Pulse Resp BP Pulse Ox 12/30/19 12:24 36.9 C 84 20 179/74 H 93 12/30/19 07:13 36.5 C 71 18 160/75 H 94 12/30/19 03:20 63 14 97 12/29/19 23:21 36.7 C 61 18 131/54 L 96 12/29/19 22:10 67 18 98 12/29/19 15:13 36.7 C 65 18 146/71 H 92 Pain Intensity Medial Head: Pain Intensity: 5 Transfer of Care Handoff Completed per policy Notes Mental Status: alert / awake / arousable and participated in evaluation Patient Amnestic to Procedure: Yes Nausea / Vomiting: adequately controlled Pain: adequately controlled Airway Patency, RR, SpO2: stable & adequate BP & HR: stable & adequate Hydration State: stable & adequate Anesthetic Complications: no major complications apparent and Pt Satisfied with anesthetic care
--- NOTE | 2019-12-30 14:27 | Operative Report (OR) ---
DATE OF OPERATION: 12/30/2019 PREOPERATIVE DIAGNOSIS: Left jaw pain. POSTOPERATIVE DIAGNOSIS: Left jaw pain. OPERATION: Biopsy of left temporal artery. SURGEON: Radha Sosa MD. ANESTHESIA: Local with conscious sedation. FINDINGS: Patent left temporal artery. COMPLICATIONS: None. INDICATIONS FOR THE PROCEDURE: This is a 74-year-old female who presented with left jaw pain and the patient is required to do left temporal artery biopsy. I did talk to the patient about the benefit, risk, and alternate procedure. I indicated the risks may include but not limited to such as bleeding and infection. The patient understands. She signed informed consent and I answered all questions. DETAILS OF PROCEDURE: We brought the patient to the OR, put the patient in the supine position. The patient received SCD on bilateral legs to prevent DVT. Also, patient received 2 grams of Ancef IV for prophylactic antibiotic. The patient received conscious sedation by the anesthesiology. Left temporal area was prepped and draped in routine sterile fashion. After timeout, then I used Doppler to locate the left temporal artery and then we injected local anesthesia by using 1% lidocaine mixed with 0.5% Marcaine. I then made an incision about 1.5 cm in length in open fashion to expose the left temporal artery. The temporal artery is localized and patent, then we mobilized the temporal artery and ligated 2 sides of the temporal artery, removed about 1.2 cm length of the left temporal artery. Then, hemostasis is obtained. Then I used 4-0 Vicryl to close the skin in continuous running. We put the dressing on. The patient tolerated the procedure well. All instrument, needle and sponge count were correct x2 at the end of case. The patient was transferred to recovery room in stable condition. The specimen was sent to pathology. I attest to the content of the Intraoperative Record and any orders documented therein. Any exception s are noted below.
[2019-12-30] MEDS ORDERED: ATROPINE SULFATE 0.1 MG/ML 10ML SYR IV PRN (14:59)
[2019-12-30] MEDS ORDERED: ePHEDrine sulfate 50 MG/ML AMP IV PRN (14:59)
[2019-12-30] MEDS ORDERED: metOLazone 5 MG TABLET PO PRN (15:07)
[2019-12-30] MEDS: LABETALOL HCL 200 MG TAB PO SCH (16:08)
[2019-12-30] MEDS ORDERED: FUROSEMIDE 40 MG TAB PO SCH (17:00)
--- NOTE | 2019-12-30 18:03 | Hospitalist Progress Note ---
Date of Service December 30, 2019 Assessment & Plan (1) Acute kidney injury superimposed on chronic kidney disease: Serum creatinine at time of admission 1.36 compared to baseline of 1.0. Creatinine patrizia as high as 1.74. Diuretics held. Creatinine today = 1.37. Nephrology recommended adjustment of diuretic therapy as discussed below. Follow. (2) Jaw claudication: Experienced left jaw pain, suspected claudication. On 12/26 ESR was 48 and CRP was < 0.29 (had already started steroid taper prior to admission). Symptoms improved with steroid therapy. Patient initially declined temporal artery biopsy, but then decided to proceed. Left temporal artery biopsy performed by Dr. Sosa 12/30/19- results pending at time of discharge. Discharge on prednisone 30 mg daily with further adjustments once biopsy results available. (3) Chronic diastolic (congestive) heart failure: Chest x-ray in 2013 demonstrated congestive heart failure. Echo showed normal LVEF with evidence of diastolic dysfunction. Now with dependent edema, but no CHF appreciated on exam or chest x-ray. Echo today shows normal LVEF with grade I diastolic dysfunction. Chronic left ventricular diastolic heart failure, compensated. (4) Dependent edema: Dependent edema without evidence of pulmonary edema. Has COPD and sleep apnea, but RV size and systolic function normal on echo. Contributing factors could include meds (amlodipine, gabapentin, prednisone) and venous insufficiency. KALPANA associated with diuretic therapy. Amlodipine stopped. Gabapentin dose decreased. Taper and DC prednisone as soon as possible. Elevate legs. Consider TEDS if tolerated. Nephrology recommended: furosemide 40 mg BID discontinuation of spironolactone and metolazone (5) HTN (hypertension): Amlodipine stopped because of dependent edema. Continue labetalol. Follow and titrate therapy. (6) COPD, moderate: Pulmonary status stable. (7) CHAZ treated with BiPAP: Continue BiPAP with nocturnal O2. 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 Hold glimepiride, repaglinide, and empagliflozin during hospital stay. Currently receiving prednisone. Received Lantus / NovoLog per protocol. Discharge on usual regimen. Taper steroids MYLA. Ongoing support and counseling. (9) DVT prophylaxis: SQ heparin ordered- held for temporal artery biopsy. Ambulate. (10) Discharge planning issues: Discharge to home. Internal Medicine follow-up with Dr. Sr. Admission and Anticipated Discharge Date Admission Date: December 27, 2019 Subjective Recheck for multiple problems. Left temporal artery biopsy performed earlier today by Dr. Sosa. Procedure went well. Patient is anxious to go home. Review of Systems: Constitutional- no fever. Cardiac- no chest pain. Pulmonary- no cough or SOB. GI- no nausea, vomiting, diarrhea, melena, hematochezia. - no urinary symptoms. Otherwise, as noted above. Physical Exam Constitutional: no acute distress ENMT: dressing left taoist clean & dry Respiratory: no respiratory distress Auscultation: lungs clear to auscultation bilaterally Cardiovascular: Rate/Rhythm: regular rate and regular rhythm Heart Sounds: no gallop Vessels: no JVD Extremities: + edema (2+ pretibial); no calf tenderness Gastrointestinal (Abdomen): normal bowel sounds, soft, nontender, no hepatosplenomegaly Musculoskeletal: Extremities: no cyanosis Skin: no rashes, warm and dry Psychiatric: Orientation: alert and oriented x 3 Results & Data Results & Data ([facility]) Vital Signs (Past 12 Hours) Vital Signs Temp Pulse Pulse Resp BP BP Pulse Ox 12/30/19 15:01 36.7 C 75 18 152/73 H 92 12/30/19 14:25 37 C 70 16 157/66 H 96 12/30/19 14:15 70 15 132/62 96 12/30/19 14:06 36.1 C L 76 16 133/75 98 12/30/19 12:24 36.9 C 84 20 179/74 H 93 12/30/19 07:13 36.5 C 71 18 160/75 H 94
[2019-12-30] MEDS ORDERED: REPAGLINIDE 1 MG TAB PO SCH (21:00)
[2019-12-30] MEDS ORDERED: LOSARTAN POTASSIUM 50 MG TAB PO SCH (21:00)
[2019-12-31] MEDS ORDERED: FUROSEMIDE 40 MG TAB PO SCH (09:00)
[2019-12-31] MEDS ORDERED: INSULIN GLARGINE SOLOSTAR 100 UNITS/ML 3 ML PEN SQ SCH (09:00)
[2019-12-31] MEDS ORDERED: POTASSIUM CHLORIDE 10 MEQ TABCR PO SCH (09:00)
[2019-12-31] MEDS ORDERED: NON-FORMULARY MEDICATION (Empagliflozin [Jardiance] 25 MG) PO SCH (09:00)
[2019-12-31] MEDS ORDERED: GLIMEPIRIDE 2 MG TAB PO SCH (09:00)
[2019-12-31] MEDS ORDERED: NON-FORMULARY MEDICATION (Linagliptin [Tradjenta] 5 MG) PO SCH (11:30)
[2019-12-31] MEDS ORDERED: SPIRONOLACTONE 100 MG TAB PO SCH (11:30)
--- NOTE | 2020-01-03 00:04 | Discharge Summary ---
Date of Service Date of Admission: 12/27/19 Date of Discharge: 12/30/19 Admission HPI Per Admitting Provider This is a 74yo F with a PMH of DM II, h/o CVA, h/o trigeminal neuralgia s/p nerve decompression, s/p bilateral carotid endarterectomy, COPD, CHAZ on BiPAP and other medical problems listed below who presents from PCPs office with abnormal lab work. Was seen by PCP Dr. Sr in clinic on Friday, December 23 and had routine lab work, which revealed hyperkalemia of 5.9 and elevated creatinine of 1.7 (baseline ~1.1) and was directed to come to ED for further evaluation. Had been noticing worsening lower extremity swelling and Dr. Sr had increased Lasix from 40 to 80 mg over the weekend. Denies using any nsaids. During PCP visit, patient was also started on Medrol Dosepak due to 2 weeks of worsening left-sided jaw discomfort noted mostly when chewing. Also has history of trigeminal neuralgia s/p nerve decompression performed at [facility] 30 years ago. Has been on carbamazepine for 30 years up until 3 weeks ago when neurology discontinued medication due to possible side effect of tremors. Patient feels that jaw pain is aching in nature now and different than "electric shocks" like trigeminal neuralgia pain from the past. Has also had worsening BLE redness over the past few weeks but feels its associated with leg swelling. Denies any warmth or drainage but notes that it is somewhat painful. Denies any fever, chills, lightheadedness, headache, nasal congestion, sinus tenderness, cough, chest pain, SOB, wheezing, nausea, vomiting, abdominal pain, dysuria, diarrhea and constipation. Principal Diagnosis acute kidney injury OTHER ACUTE DIAGNOSES: jaw claudication, r/o temporal arteritis Discharge Data Allergies Allergy/AdvReac Type Severity Reaction Status Date / Time clarithromycin Allergy BURNING Verified 11/18/19 11:11 MOUTH Consultations 12/27/19 12:56 ED Decision to Admit Stat 12/28/19 11:06 Consult Nephrology Routine 12/28/19 16:21 Consult General Surgery Routine Procedures Performed Operation Date: 12/30/19 13:40 Actual Procedures p Left Temporal Artery Biopsy(Left) - Radha Sosa MD Ordered Studies 12/27/19 14:17 CT soft tissue neck wo con Routine 12/27/19 14:20 US venous doppler LE BI Urgent 12/27/19 14:38 CT head/brain wo con Routine Hospital Course (1) Acute kidney injury superimposed on chronic kidney disease: Serum creatinine at time of admission 1.36 compared to baseline of 1.0. Creatinine patrizia as high as 1.74. Diuretics held. Creatinine day of discharge = 1.37. Nephrology recommended adjustment of diuretic therapy as discussed below. Follow. (2) Jaw claudication: Experienced left jaw pain, suspected claudication. On 12/26 ESR was 48 and CRP was < 0.29 (had already started steroid taper prior to admission). Symptoms improved with steroid therapy. Patient initially declined temporal artery biopsy, but then decided to proceed. Left temporal artery biopsy performed by Dr. Sosa 12/30/19- results pending at time of discharge. Discharge on prednisone 30 mg daily with further adjustments once biopsy results available. (3) Chronic diastolic (congestive) heart failure: Chest x-ray in 2013 demonstrated congestive heart failure. Echo at that time showed normal LVEF with evidence of diastolic dysfunction. Now with dependent edema, but no CHF appreciated on exam or chest x-ray. Echo 12/29/19 showed normal LVEF with grade I diastolic dysfunction. Chronic left ventricular diastolic heart failure, compensated. (4) Dependent edema: Dependent edema without evidence of pulmonary edema. Has COPD and sleep apnea, but RV size and systolic function normal on echo. Contributing factors could include meds (amlodipine, gabapentin, prednisone) and venous insufficiency. KALPANA associated with diuretic therapy. Amlodipine stopped. Gabapentin dose decreased. Taper and DC prednisone as soon as possible. Elevate legs. Consider TEDS if tolerated. Nephrology recommended: furosemide 40 mg BID discontinuation of spironolactone and metolazone (5) HTN (hypertension): Amlodipine stopped because of dependent edema. Continue labetalol. Follow and titrate therapy. (6) COPD, moderate: Pulmonary status stable. (7) CHAZ treated with BiPAP: Continue BiPAP with nocturnal O2. 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 Hold glimepiride, repaglinide, and empagliflozin during hospital stay. Currently receiving prednisone. Received Lantus / NovoLog per protocol. Discharge on usual regimen. Taper steroids MYLA. Ongoing support and counseling. (9) DVT prophylaxis: SQ heparin ordered- held for temporal artery biopsy. Ambulate. (10) Discharge planning issues: Discharge to home. Internal Medicine follow-up with Dr. Sr. Total Time Total Time Spent Total Time Spent (In Minutes): 40 Discharge Plan Discharge Items Patient Disposition: Home - Self-Care Reason For Visit: worsening kidney function, jaw pain Discharge Diagnosis: worsening kidney function, jaw pain Condition on Discharge: Good Activity: Resume your previous activity Non-emergency contact: Primary Care Provider and Hospitalist Call non-emergency contact if: you have any medication questions Follow-up/Referrals: Ferny Sr DO [Primary Care Provider] - (01/10/2020 3:00 PM Ferny Sr DO) Diet: Carb Consistent or DM2 and Heart Healthy Addtl Attending Provider Instructions: MEDICATION CHANGES: Stop amlodipine (Norvasc) because of leg swelling. Reduce gabapentin (Neurontin) to 100 mg 3 times a day because of leg swelling. Stop metolazone (Zaroxolyn), spironolactone (Aldactone), and losartan (Cozaar) because of worsening kidney function. Stop potassium chloride because potassium level was too high. Change furosemide (Lasix) to 40 mg twice a day (morning and afternoon). Continue prednisone 30 mg daily until otherwise instructed by Dr. Sr. (Don't throw any of the discontinued medications away right now in case they are restarted.) OTHER INSTRUCTIONS: Keep surgical dressing dry for 4 days, then remove. Sutures will dissolve- no need to have them removed. Weigh yourself every morning and keep a record. Keep legs & feet elevated whenever possible to minimize swelling. Dr. Sr will recheck your blood pressure and adjust medicines as necessary. Dr. Sr will order follow-up lab tests to recheck your kidney function and potassium. Seek medical attention if you have: * temperature above 101 * chest pain or trouble breathing * abdominal pain, nausea, vomiting * diarrhea, dark stools or bloody stools * any unanswered questions or concerns Call 911 if symptoms are severe. Please take good care of yourself. Call if you have any questions or problems. You can reach a [facility] hospitalist on duty at [facility] 24 hours a day by calling [phone]. My cell # is [phone]. Pending Studies at Discharge: Yes (results from temporal artery biopsy) Stand-Alone Forms: My [facility], Smoking Cessation Medications and DC Order Prescriptions: New prednisone 10 mg tablet See Rx Instructions .ROUTE .COMPLEX Qty: 100 RF: 1 gabapentin 100 mg capsule 100 mg PO TID Qty: 90 RF: 5 furosemide 40 mg tablet 40 mg PO BID Qty: 60 RF: 5 Continued Jardiance 25 mg tablet 25 mg PO DAILY Qty: 30 RF: 2 levocetirizine 5 mg tablet 2.5 mg PO HS RF: 0 repaglinide 0.5 mg Tablet 0.5 mg PO TID RF: 0 omeprazole 20 mg Capsule,Delayed Release(Dr/Ec) 20 mg PO DAILY RF: 0 Lantus Solostar U-100 Insulin 100 unit/mL (3 mL) insulin pen 42 unit SUBCUT DAILY RF: 0 atorvastatin 80 mg Tablet 80 mg PO QDL RF: 0 labetalol 200 mg Tablet 200 mg PO QDD RF: 0 aspirin 81 mg Tablet,Delayed Release (Dr/Ec) 81 mg PO QAM RF: 0 oxycodone-acetaminophen [Percocet] 5-325 mg Tablet 1 tab PO Q8H PRN (Reason: Pain) RF: 0 ascorbic acid (vitamin C) [Vitamin C] 500 mg Tablet 500 mg PO QDL RF: 0 glimepiride 4 mg Tablet 4 mg PO QAM RF: 0 montelukast 10 mg Tablet 10 mg PO QPM RF: 0 fluticasone propionate [Flonase Allergy Relief] 50 mcg/actuation [place] spension 2 spray INTRANASAL QPM RF: 0 Tradjenta 5 mg Tablet 5 mg PO QDL RF: 0 azelastine-fluticasone 137-50 mcg/spray [place],Non-Aerosol 1 spray INTRANASAL BID RF: 0 labetalol 200 mg Tablet 100 mg PO QAM RF: 0 Magic Mouth Wash 1 dose PO QID PRN (Reason: SORE MOUTH) RF: 0 Discontinued gabapentin 100 mg capsule 200 mg PO TID RF: 0 potassium chloride 10 mEq Capsule, Extended Release 10 meq PO DAILY RF: 0 furosemide 40 mg Tablet 40 mg PO QAM RF: 0 spironolactone 100 mg Tablet 100 mg PO QDL RF: 0 metolazone 5 mg Tablet 5 mg PO UD PRN (Reason: Edema) RF: 0 amlodipine 5 mg Tablet 5 mg PO QPM RF: 0 losartan 100 mg Tablet 100 mg PO QPM RF: 0 Discharge Orders: Discharge Order (Routine); Ordered 12/30/19 Ordered By: Benton Tovar/Other Patient Handouts: Managing Type 2 Diabetes, Communicating About Pain Admission Data Admit Date/Time: 12/27/19 14:16 Attending Provider: Benton Joyner Admit Provider: Florian Mitchell Primary Care Provider: Ferny Sr Other Providers: Pam Thomspon ; Florian Mitchell ; Chin Henry ; Radha Sosa Other Interventions: Discharge Summary Assessment (RN) Last Done: 12/30/19 19:00 DC Date/Time DO NOT enter until pt leaves facility: 12/30/19 19:54
== END 2019-12-30 19:54 | disposition home or self-care (01) | DRG 674 ==
LOC: ED 09:42 → 2N 14:16 → SUATTDRO 14:16 → 2N 15:26

== ENCOUNTER 2020-12-22 07:54 | Observation (INO) ==
--- NOTE | 2020-07-24 10:54 | PAT Medication Instructions ---
Medication Instructions Date of Service July 24, 2020 Home Medications Medication Instructions Recorded furosemide 40 mg PO BID #60 tab 12/30/19 ascorbic acid (vitamin C) [Vitamin C] 500 mg PO QDL aspirin 81 mg PO QAM atorvastatin 80 mg PO QDL azelastine-fluticasone 2 spray INTRANASAL HS fluticasone propionate [Flonase Allergy Relief] 2 spray INTRANASAL QPM montelukast 10 mg PO QPM oxycodone-acetaminophen [Percocet] 1 tab PO Q8H PRN furosemide 40 mg PO BID carbamazepine 200 mg tablet 200 mg PO BID insulin glargine 100 unit/mL (3 mL) subcutaneous pen 46 unit SUBCUT QPM labetalol 200 mg tablet 100 mg PO BID semaglutide 1 mg/dose (2 mg/1.5 mL) subcutaneous pen injector 1 mg SUBCUT WK Jardiance 25 mg PO QAM Magic Mouthwash-Otc 1 dose PO QID PRN albuterol sulfate [Proventil HFA] 2 puff INHALATION 6XD PRN duloxetine 20 mg PO HS fexofenadine-pseudoephedrine [Teodora-D 24 Hour] 1 tab PO QPM gabapentin 600 mg PO HS lisinopril 5 mg PO QPM potassium chloride 10 meq PO QPM Continue as directed semaglutide 1 mg/dose (2 mg/1.5 mL) subcutaneous pen injector 1 mg SUBCUT WK DO NOT take the morning of surgery ascorbic acid (vitamin C) [Vitamin C] 500 mg PO QDL furosemide 40 mg PO BID Jardiance 25 mg PO QAM Magic Mouthwash-Otc 1 dose PO QID PRN Take morning of surgery With a small sip of water, OTHERWISE NOTHING TO EAT OR DRINK AFTER MIDNIGHT: atorvastatin 80 mg PO QDL oxycodone-acetaminophen [Percocet] 1 tab PO Q8H PRN (okay to take up to 4 hours prior to surgery if needed) carbamazepine 200 mg tablet 200 mg PO BID labetalol 200 mg tablet 100 mg PO BID albuterol sulfate [Proventil HFA] 2 puff INHALATION 6XD PRN (use if needed; please bring with you to hospital day of surgery if possible) Take evening before surgery azelastine-fluticasone 2 spray INTRANASAL HS fluticasone propionate [Flonase Allergy Relief] 2 spray INTRANASAL QPM montelukast 10 mg PO QPM oxycodone-acetaminophen [Percocet] 1 tab PO Q8H PRN (if needed) furosemide 40 mg PO BID carbamazepine 200 mg tablet 200 mg PO BID insulin glargine 100 unit/mL (3 mL) subcutaneous pen 46 unit SUBCUT QPM labetalol 200 mg tablet 100 mg PO BID Magic Mouthwash-Otc 1 dose PO QID PRN (if needed) albuterol sulfate [Proventil HFA] 2 puff INHALATION 6XD PRN (if needed) duloxetine 20 mg PO HS fexofenadine-pseudoephedrine [Teodora-D 24 Hour] 1 tab PO QPM gabapentin 600 mg PO HS lisinopril 5 mg PO QPM potassium chloride 10 meq PO QPM Other Notes If you have any questions please call us at [phone] or [phone] or [phone] or [phone]
--- NOTE | 2020-07-25 11:01 | Anesthesiology Consultation ---
Date of Service July 25, 2020 History Surgery Operation Date: 08/25/20 07:00 Proposed Procedures p Left Total Knee Arthroplasty - Edgard Yang, Height/Weight Height: 5 ft 6 in Weight: 106.141 kg Allergies Allergy/AdvReac Type Severity Reaction Status Date / Time clarithromycin Allergy BURNING Verified 07/18/20 14:16 MOUTH Medications Home Medications Medication Instructions Recorded Confirmed Last Taken ascorbic acid (vitamin C) [Vitamin 500 mg PO QDL 11/12/18 07/18/20 12/26/19 C] aspirin 81 mg PO QAM 11/12/18 07/18/20 12/26/19 atorvastatin 80 mg PO QDL 11/12/18 07/18/20 12/26/19 azelastine-fluticasone 2 spray INTRANASAL HS 11/12/18 07/18/20 12/26/19 fluticasone propionate [Flonase 2 spray INTRANASAL QPM 11/12/18 07/18/20 12/26/19 Allergy Relief] montelukast 10 mg PO QPM 11/12/18 07/18/20 12/26/19 oxycodone-acetaminophen [Percocet] 1 tab PO Q8H PRN 11/12/18 07/18/20 12/26/19 furosemide 40 mg PO BID #60 tab 12/30/19 07/18/20 Unknown carbamazepine 200 mg tablet 200 mg PO BID 04/18/20 07/18/20 Unknown insulin glargine 100 unit/mL (3 46 unit SUBCUT QPM ml 04/18/20 07/18/20 Unknown mL) subcutaneous pen labetalol 200 mg tablet 100 mg PO BID tab 04/18/20 07/18/20 Unknown semaglutide 1 mg/dose (2 mg/1.5 1 mg SUBCUT WK 04/18/20 07/18/20 Unknown mL) subcutaneous pen injector Jardiance 25 mg PO QAM 07/18/20 07/18/20 Unknown Magic Mouthwash-Otc 1 dose PO QID PRN 07/18/20 07/18/20 Unknown albuterol sulfate [Proventil HFA] 2 puff INHALATION 6XD PRN 07/18/20 07/18/20 Unknown duloxetine 20 mg PO HS 07/18/20 07/18/20 Unknown fexofenadine-pseudoephedrine 1 tab PO QPM 07/18/20 07/18/20 Unknown [Teodora-D 24 Hour] gabapentin 600 mg PO HS 07/18/20 07/18/20 Unknown lisinopril 5 mg PO QPM 07/18/20 07/18/20 Unknown potassium chloride 10 meq PO QPM 07/18/20 07/18/20 Unknown Past Medical History Medical History (Updated 07/24/20 @ 14:32 by Gabe Hernandez) Anxiety Asthma Reports rarely uses PRN INH CKD (chronic kidney disease) stage 3, GFR 30-59 ml/min Depression Diabetes mellitus, type 2 NIDDM Diabetic neuropathy BOTH FEET AND LEGS; Glaucoma Hearing deficit Left ear - no hearing aids History of carotid stenosis s/p BL endarterectomy-2003 History of gastric ulcer History of skin cancer History of trigeminal neuralgia s/p surgery Hx of congestive heart failure 8 YRS AGO Hyperlipidemia Hypertension Osteoarthritis Pulmonary histoplasmosis Hx. Chronic interstitial thickening and calcified granulomas noted on prior CXRs. 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 Jackson). Past Family History Family History Father , age 96 of a stroke Stroke Coronary heart disease Mother , age 79 of an [place] Myocardial infarction Past Surgical History Surgical History (Updated 07/24/20 @ 14:32 by Gabe Hernandez) History of bilateral carotid endarterectomy 2003 History of cholecystectomy History of colonoscopy w/ polypectomy History of esophagogastroduodenoscopy (EGD) History of surgery Trigeminal decompression History of surgical removal of ganglion cyst RIGHT History of tonsillectomy and adenoidectomy History of tooth extraction History of total shoulder replacement Rt 11/14/17 - Elective Glidescope #3 due to Grade 3 View and difficulty visualizing cords, ETT #7.0. Patient re-positioned twice. A-Line placed. History of total shoulder replacement LEFT Hx of dilation and curettage Social History Smoking Status: Former smoker tobacco type: cigarettes Smoking cigarettes per day: 20 Do You Dip or Chew Tobacco: No Smoking End Date: QUIT 2011 Hx Alcohol Use: No alcohol intake frequency: holidays/special occasions only Hx Substance Use: No substance use type: does not use Testing Electrocardiogram Date: 12/28/19 Findings: + NSR @ (67bpm) Chest X-Ray Date: 12/27/19 FINDINGS: An AP, portable, upright chest radiograph is compared to study dated 11/18/2018. The heart is enlarged noting atherosclerotic calcification of the thoracic aorta. The pulmonary vasculature is noncongested. Chronic interstitial thickening is similar to previous. Small calcified granulomas are incidentally noted. There is bibasilar atelectasis. No airspace consolidation or large pleural effusion is identified. No pneumothorax is seen. The skeletal structures are osteopenic. The bony thorax is grossly intact. There are bilateral shoulder arthroplasties in place. Degenerative change is noted throughout the thoracic spine. IMPRESSION: Cardiomegaly with no acute cardiopulmonary abnormality. Echocardiogram Date: 12/29/19 EF: 60-65% Grossly normal valvular structure and function. Moderate concentric LVH. Grade 1 diastolic dysfunction. The right ventricular systolic function is normal. Normal biatrial size.
--- NOTE | 2020-11-21 11:51 | PAT Medication Instructions ---
Medication Instructions Date of Service November 21, 2020 Home Medications Medication Instructions Recorded furosemide 40 mg PO BID #60 tab 12/30/19 gabapentin 300 mg capsule 600 mg PO HS #60 cap 08/16/20 ascorbic acid (vitamin C) [Vitamin C] 500 mg PO QPM aspirin 81 mg PO QAM atorvastatin 80 mg PO QPM azelastine-fluticasone 2 spray INTRANASAL HS fluticasone propionate [Flonase Allergy Relief] 2 spray INTRANASAL QPM montelukast 10 mg PO HS oxycodone-acetaminophen [Percocet] 1 tab PO Q8H PRN furosemide 40 mg PO BID insulin glargine 100 unit/mL (3 mL) subcutaneous pen 46 unit SUBCUT QPM labetalol 200 mg tablet 100 mg PO BID semaglutide 1 mg/dose (2 mg/1.5 mL) subcutaneous pen injector 1 mg SUBCUT WK Jardiance 25 mg PO QAM Magic Mouthwash-Otc 1 dose PO QID PRN albuterol sulfate [Proventil HFA] 2 puff INHALATION 6XD PRN fexofenadine-pseudoephedrine [Teodora-D 24 Hour] 1 tab PO HS potassium chloride 10 meq PO QPM gabapentin 300 mg capsule 600 mg PO HS carbamazepine 200 mg tablet 100 mg PO TID duloxetine 60 mg PO QPM Continue as directed semaglutide 1 mg/dose (2 mg/1.5 mL) subcutaneous pen injector 1 mg SUBCUT WK DO NOT take the morning of surgery furosemide 40 mg PO BID Jardiance 25 mg PO QAM Magic Mouthwash-Otc 1 dose PO QID PRN carbamazepine 200 mg tablet 100 mg PO TID Take morning of surgery With a small sip of water, OTHERWISE NOTHING TO EAT OR DRINK AFTER MIDNIGHT: oxycodone-acetaminophen [Percocet] 1 tab PO Q8H PRN (okay to take up to 4 hours prior to surgery if needed) labetalol 200 mg tablet 100 mg PO BID albuterol sulfate [Proventil HFA] 2 puff INHALATION 6XD PRN (use if needed; please bring rescue inhaler with you to hospital day of surgery if possible) Take evening before surgery ascorbic acid (vitamin C) [Vitamin C] 500 mg PO QPM atorvastatin 80 mg PO QPM azelastine-fluticasone 2 spray INTRANASAL HS fluticasone propionate [Flonase Allergy Relief] 2 spray INTRANASAL QPM montelukast 10 mg PO HS oxycodone-acetaminophen [Percocet] 1 tab PO Q8H PRN (if needed) furosemide 40 mg PO BID insulin glargine 100 unit/mL (3 mL) subcutaneous pen 46 unit SUBCUT QPM labetalol 200 mg tablet 100 mg PO BID Magic Mouthwash-Otc 1 dose PO QID PRN (if needed) albuterol sulfate [Proventil HFA] 2 puff INHALATION 6XD PRN (if needed) fexofenadine-pseudoephedrine [Teodora-D 24 Hour] 1 tab PO HS potassium chloride 10 meq PO QPM gabapentin 300 mg capsule 600 mg PO HS carbamazepine 200 mg tablet 100 mg PO TID duloxetine 60 mg PO QPM Other Notes If you have any questions please call us at [phone] or [phone] or [phone] or [phone]
--- NOTE | 2020-11-22 12:01 | Anesthesiology Consultation ---
Date of Service November 22, 2020 Assessment & Plan (1) Encounter for pre-operative examination: - Cardiac hx: Patient with remote episode of CHF (in setting of infection), extensive coronary artery calcifications and moderate aortic valve calcification per 02/[address] Also risk factors of morbid obesity, diabetes and decreased functional status. Will arrange preop cardiology evaluation. - COVID screening: Per assessment on 11/22: Travel screen negative, no known COVID-19 positive contacts or current COVID-19 related symptoms. Patient fully vaccinated. Surgeon arranging preop COVID testing. Awaiting results. - Hx glidescope intubation: Left shoulder replacement (12/25/18): Grade 3 view (unable to read details regarding grade view on anesthesia records), Glidescope #3, ETT 7.5 + PNB at [facility] - Check BSG AM DOS Chart Review Chart Review: Patient seen in Pre Admission Testing Teaching & Discussion Pre-Anesthesia Teaching/Discussion Notes: Instructed NPO after midnight before surgery,except medications with 15 cc of water. Medication instructions provided according to the PAT guidelines. History Surgery Operation Date: 12/22/20 07:00 Proposed Procedures p Left Total Knee Arthroplasty - Edgard Yang, Height/Weight Height: 5 ft 5 in Weight: 110.9 kg Allergies Allergy/AdvReac Type Severity Reaction Status Date / Time clarithromycin Allergy Unknown Mouth Verified 11/22/20 11:50 burning Medications Home Medications Medication Instructions Recorded Confirmed Last Taken ascorbic acid (vitamin C) [Vitamin 500 mg PO QPM 11/12/18 11/15/20 12/26/19 C] aspirin 81 mg PO QAM 11/12/18 11/15/20 12/26/19 atorvastatin 80 mg PO QPM 11/12/18 11/15/20 12/26/19 azelastine-fluticasone 2 spray INTRANASAL HS 11/12/18 11/15/20 12/26/19 fluticasone propionate [Flonase 2 spray INTRANASAL QPM 11/12/18 11/15/20 12/26/19 Allergy Relief] montelukast 10 mg PO HS 11/12/18 11/15/20 12/26/19 oxycodone-acetaminophen [Percocet] 1 tab PO Q8H PRN 11/12/18 11/15/20 12/26/19 furosemide 40 mg PO BID #60 tab 12/30/19 11/15/20 Unknown insulin glargine 100 unit/mL (3 46 unit SUBCUT QPM ml 04/18/20 11/15/20 Unknown mL) subcutaneous pen labetalol 200 mg tablet 100 mg PO BID tab 04/18/20 11/15/20 Unknown semaglutide 1 mg/dose (2 mg/1.5 1 mg SUBCUT WK 04/18/20 11/15/20 Unknown mL) subcutaneous pen injector Jardiance 25 mg PO QAM 07/18/20 11/15/20 Unknown Magic Mouthwash-Otc 1 dose PO QID PRN 07/18/20 11/15/20 Unknown albuterol sulfate [Proventil HFA] 2 puff INHALATION 6XD PRN 07/18/20 11/15/20 Unknown fexofenadine-pseudoephedrine 1 tab PO HS 07/18/20 11/15/20 Unknown [Teodora-D 24 Hour] potassium chloride 10 meq PO QPM 07/18/20 11/15/20 Unknown gabapentin 300 mg capsule 600 mg PO HS #60 cap 08/16/20 11/15/20 Unknown carbamazepine 200 mg tablet 100 mg PO TID tab 10/18/20 11/15/20 Unknown duloxetine 60 mg PO QPM 11/15/20 11/15/20 Unknown Past Medical History Medical History Anxiety Asthma Stable CKD (chronic kidney disease) stage 3, GFR 30-59 ml/min Follows with [facility] nephrology (Dr. Aiken) Depression Diabetes mellitus, type 2 NIDDM Diabetic neuropathy B/L feet, legs Glaucoma Hearing deficit Left ear - no hearing aids History of carotid stenosis s/p R/L carotid endarterectomy (2003) History of gastric ulcer Remote hx History of skin cancer Hx of congestive heart failure 8+ years ago (felt r/t infection) Hyperlipidemia Hypertension Osteoarthritis Pulmonary histoplasmosis Remote hx > chronic interstitial thickening and calcified granulomas noted on prior CXRs Sleep apnea BIPAP + 4L O2 Stroke 2003 - intermittent vertigo and occasional right sided weakness Trigeminal neuralgia s/p trigeminal decompression (). On carbamazepine, [place] [facility] [place]) Exercise / Class Metabolic Activity III < 4 Walking/Shop/Light housework (no chest pain/no sob with walking) Past Family History Family History Father , age 96 of a stroke Stroke Coronary heart disease Mother , age 79 of an [place] Myocardial infarction Past Surgical History Surgical History History of bilateral carotid endarterectomy 2004 History of cholecystectomy History of colonoscopy w/ polypectomy History of esophagogastroduodenoscopy (EGD) History of surgery Trigeminal decompression 1990s History of surgical removal of ganglion cyst Right History of tonsillectomy and adenoidectomy History of tooth extraction History of total shoulder replacement Right (11/14/17): Elective Glidescope #3 due to Grade 3 View and difficulty visualizing cords, ETT #7.0. Patient re-positioned twice. History of total shoulder replacement Left shoulder replacement (12/25/18): Grade 3 view (unable to read details regarding grade view on anesthesia records), Glidescope #3, ETT 7.5 + PNB at [facility] Hx of dilation and curettage Past Anesthesia History Difficult Airway (Left shoulder replacement (12/25/18): Grade 3 view (unable to read details regarding grade view on anesthesia records), Glidescope #3, ETT 7.5 + PNB at [facility]) and No Family Hx of Anesthesia Complications History of PONV No Hx of PONV and No Hx of Motion Sickness Social History Smoking Status: Former smoker tobacco type: cigarettes Do You Dip or Chew Tobacco: No Smoking End Date: Quit 04/21/2012 (hx 1 PPD) Hx Alcohol Use: Yes Alcohol type: hard liquor alcohol intake frequency: other Alcohol Intake Frequency Comment: Rare Hx Substance Use: No substance use type: does not use Review of Systems Patient denies chest pain, shortness of breath, fever, chills, cough, wheezing, palpitations. Physical Exam Vital Signs VITALS BP 120/70 P 65 TEMP 98.2 SP02 93%RA RESP 18 PHYSICAL Full cervical extension range of motion. Full TMJ range of motion. TMD 3.5 finger breaths > difficult to palpate Mallampati Score 3 Dentition: intact, + crowns (molars), bridges (upper right side, left lower side) Lungs: mildly course throughout Cardiac: regular rate and rhythm, no murmurs noted Spine: normal Carotid arteries: negative bruit Extremities: no edema Thick neck Testing Laboratory Results 11/22/20 12:37 11/22/20 12:37 PT 10.2 Seconds (9.0-12.0) 11/22/20 12:37 INR 1.0 (0.9-1.1) 11/22/20 12:37 APTT 25.5 Seconds (21.0-31.0) 11/22/20 12:37 Hemoglobin A1c 7.0 % (4.5-5.6) H 11/22/20 12:32 Blood Type O Negative 11/22/20 12:37 Antibody Screen NEGATIVE 11/22/20 12:37 Electrocardiogram Date: 12/28/19 Findings: + NSR @ (67) Echocardiogram Date: 12/29/19 EF 60 to 65%. Moderate concentric LVH. Grade 1 diastolic dysfunction. No significant valvular disease. Stress Test Date: 09/07/15 Type: DSE EF 60 to 65%. No regional wall motion abnormality. No significant valvular disease. Suboptimal stress test due to inadequate maximum heart rate. 50% MPHR. Other Testing CT Chest (02/17/20): Extensive coronary artery calcification. Moderate calcification of the aortic valve. Mild emphysema. Numerous small 2-4 mm pulmonary nodules are seen throughout the lungs, most of which are stable. Some are new, largest being a 4 mm nodule in the right upper lobe on series 4, image 50. Chronic collapse of the right middle lobe. Central airways are clear. No pleural effusion or pneumothorax. Numerous small 2-4 mm pulmonary nodules, some of which are new the largest measuring 4 mm in the right upper lobe. Continue annual screening with low dose CT in 12 months. Carotid Artery Duplex (06/15/14): Right carotid artery duplex examination indicates evidence of a less than 50% stenosis of the internal carotid artery. The right internal carotid artery endarterectomy appears patent. Left carotid artery duplex examination indicates evidence of a less than 50% stenosis of the internal carotid artery. The left internal carotid artery endarterectomy appears patent.
[2020-11-22 12:58] LABS: Basophils # (auto) 0.02 K/uL (0-0.2); Basophils % (auto) 0.2 %; Eosinophils # (auto) 0.26 K/uL (0-0.5); Eosinophils % (auto) 2.9 %; Hematocrit (blood only) 40.4 % (37-47); Hemoglobin 12.7 g/dL (12.0-16.0); Immature Granulocytes # (auto) 0.01 K/uL (0.00-0.02); Immature Granulocytes % (auto) 0.1 %; Lymphocytes # (auto) 2.54 K/uL (1.2-3.4); Lymphocytes % (auto) 27.9 %; Mean Corpuscular Hemoglobin 30.8 pg (25-34); Mean Corpuscular Hgb Conc 31.4 g/dL (32-36); Mean Corpuscular Volume 98.1 fL (80-100); Mean Platelet Volume 9.7 fL (7.4-10.4); Monocytes # (auto) 0.89 K/uL (0.11-0.59); Monocytes % (auto) 9.8 %; Neutrophils # (auto) 5.39 K/uL (1.4-6.5); Neutrophils % (auto) 59.1 %; Platelet Count 291 K/uL (130-400); RDW Coefficient of Variation 14.4 % (11.5-14.5); RDW Standard Deviation 51.3 fL (36.4-46.3); Red Blood Count 4.12 M/uL (4.2-5.4); White Blood Count 9.11 K/uL (4.8-10.8)
[2020-11-22 13:13] LABS: Partial Thromboplastin Time 25.5 Seconds (21.0-31.0); Prothrombin Time 10.2 Seconds (9.0-12.0)
[2020-11-22 13:14] LABS: BUN Creatinine Ratio 15.6 (10-20); Calcium 8.9 mg/dl (8.5-10.1); Creatinine Clr Calc Pharmacy 78.5 ml/min; Est GFR (African American) 86.8 ml/min; Est GFR (Non-African American) 74.9 ml/min; Potassium 4.1 mmol/L (3.5-5.1)
[2020-11-22 13:22] LABS: Estimated Average Glucose 154 mg/dl
--- NOTE | 2020-12-20 10:30 | History & Physical Report ---
Date of Service December 20, 2020 Assessment & Plan (1) Osteoarthritis of left knee: We will proceed with a left total knee arthroplasty. Postoperatively she will be started on aspirin for DVT prophylaxis and kept overnight in the hospital for postoperative medical management. She plans to use home health upon discharge. History of Present Illness Chief Complaint: Osteoarthritis of the left knee. Primary Care Provider: Ferny Sr DO Rama is a pleasant 75-year-old female who is been dealing with chronic increasing left knee pain. X-rays and clinical examination been diagnostic for advanced osteoarthritis of the left knee. After failing conservative treatment, she has elected proceed with a left total knee arthroplasty.. Allergies Allergy/AdvReac Type Severity Reaction Status Date / Time clarithromycin Allergy Unknown Mouth Verified 11/24/20 09:50 burning Home Medications Medication Instructions Recorded Confirmed Type ascorbic acid (vitamin C) [Vitamin 500 mg PO QPM 11/12/18 11/24/20 History C] aspirin 81 mg PO QAM 11/12/18 11/24/20 History atorvastatin 80 mg PO QPM 11/12/18 11/24/20 History azelastine-fluticasone 2 spray INTRANASAL HS 11/12/18 11/24/20 History fluticasone propionate [Flonase 2 spray INTRANASAL QPM 11/12/18 11/24/20 History Allergy Relief] montelukast 10 mg PO HS 11/12/18 11/24/20 History oxycodone-acetaminophen [Percocet] 1 tab PO Q8H PRN 11/12/18 11/24/20 History furosemide 40 mg PO BID #60 tab 12/30/19 11/24/20 Rx insulin glargine 100 unit/mL (3 46 unit SUBCUT QPM ml 04/18/20 11/24/20 History mL) subcutaneous pen labetalol 200 mg tablet 100 mg PO BID tab 04/18/20 11/24/20 History semaglutide 1 mg/dose (2 mg/1.5 1 mg SUBCUT WK 04/18/20 11/24/20 History mL) subcutaneous pen injector Jardiance 25 mg PO QAM 07/18/20 11/24/20 History Magic Mouthwash-Otc 1 dose PO QID PRN 07/18/20 11/24/20 History albuterol sulfate [Proventil HFA] 2 puff INHALATION 6XD PRN 07/18/20 11/24/20 History fexofenadine-pseudoephedrine 1 tab PO HS 07/18/20 11/24/20 History [Teodora-D 24 Hour] potassium chloride 10 meq PO QPM 07/18/20 11/24/20 History gabapentin 300 mg capsule 600 mg PO HS #60 cap 08/16/20 11/24/20 Rx carbamazepine 200 mg tablet 100 mg PO TID tab 10/18/20 11/24/20 History duloxetine 60 mg PO QPM 11/15/20 11/24/20 History Past Med/Surg History Medical History Anxiety Asthma Stable CKD (chronic kidney disease) stage 3, GFR 30-59 ml/min Follows with [facility] nephrology (Dr. Aiken) Depression Diabetes mellitus, type 2 NIDDM Diabetic neuropathy B/L feet, legs Glaucoma Hearing deficit Left ear - no hearing aids History of carotid stenosis s/p R/L carotid endarterectomy (2003) History of gastric ulcer Remote hx History of skin cancer Hx of congestive heart failure 8+ years ago (felt r/t infection) Hyperlipidemia Hypertension Osteoarthritis Pulmonary histoplasmosis Remote hx > chronic interstitial thickening and calcified granulomas noted on prior CXRs Sleep apnea BIPAP + 4L O2 Stroke 2003 - intermittent vertigo and occasional right sided weakness Trigeminal neuralgia s/p trigeminal decompression (). On carbamazepine, [place] [facility] [place]) Surgical History History of bilateral carotid endarterectomy 2003 History of cholecystectomy History of colonoscopy w/ polypectomy History of esophagogastroduodenoscopy (EGD) History of surgery Trigeminal decompression History of surgical removal of ganglion cyst Right History of tonsillectomy and adenoidectomy History of tooth extraction History of total shoulder replacement Right (11/14/17): Elective Glidescope #3 due to Grade 3 View and difficulty visualizing cords, ETT #7.0. Patient re-positioned twice. History of total shoulder replacement Left shoulder replacement (12/25/18): Grade 3 view (unable to read details regarding grade view on anesthesia records), Glidescope #3, ETT 7.5 + PNB at [facility] Hx of dilation and curettage Family History Father , age 96 of a stroke Stroke Coronary heart disease Mother , age 79 of an [place] Myocardial infarction Social History Smoking Status: Former smoker Tobacco Type: Cigarettes Smoking End Date: Quit 04/21/2012 (hx 1 PPD); Number of Years Since Quit: 8; Second Hand Exposure: No; Do You Dip or Chew Tobacco: No; Hx Alcohol Use: Yes Alcohol type: hard liquor Hx Substance Use: No Preferred Language: Yi Communication Ability: Effective Rn Perioperative Required: No Beliefs That Will Affect Care: None marital status: Current Living Situation: Spouse current occupational status: retired 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 Other Information That Helps Us Care for You: No Feels Safe at Home: Yes Safety Concerns: Feels Safe At This Time Assistive Devices: Glasses Review of Systems All systems reviewed & are unremarkable except as noted in HPI & below. Physical Exam On physical examination of the left knee, she has a trace effusion. She is good motion of 0 to 120 degrees. She has no instability. She has tenderness palpation over the distal lateral femoral condyle and over the lateral joint line.. Constitutional WD/WN, vitals as above Eyes PERRL, conjunctivae normal, anicteric sclerae ENMT external ear and nose normal, oropharynx normal Neck trachea midline, no thyromegaly Respiratory normal respiratory effort Cardiovascular RRR, no murmur, no edema Gastrointestinal (Abdomen) normal bowel sounds, soft, nontender, no hepatosplenomegaly Psychiatric A+Ox3, euthymic affect Results & Data Results & Data Laboratory Results . Diagnostic Findings X-rays of the left knee do show advanced osteoarthritis with joint space narrowing, osteophyte formation, and [id number] articulation. This mostly involves the lateral compartment.. PG Care Time/CCT Total # of Minutes Spent Total Time Spent with Patient: Total time spent is greater than 50% in coord ination of care (as documented) at patient's floor/unit and/or counseling patient: Coding Level of Care Code None Diagnoses Osteoarthritis of left knee M17.12
[~2020-12-22 07:54] MED LIST changes: +BUPIVACAINE 0.5 % 5 MG/1 ML PF 10ML VIAL ONE; -CEFAZOLIN 2000MG 2,000 MG/15 ML SYR IV SCH; +GABAPENTIN 300 MG CAP PO SCH; -GABAPENTIN 300 MG PO SCH; -LR 500ML BOLUS IV SCH; +LR 500ML BOLUS, THEN 15ML/HR IV SCH; +ROPIVACAINE 0.5% 5 MG/ML 30 ML VIAL ONE; -ROPIVACAINE 0.5% HCL/PF 150 MG, BUPIVACAINE 0.5% MPF 30 ML, EPINEPHrine 30MG/30ML (OR U... INFIL SCH; +ROPIVACAINE 0.5% HCL/PF 150 MG, BUPIVACAINE 0.75% MPF 20 ML, EPINEPHrine 30MG/30ML (OR ... INSTIL SCH; +TRANEXAMIC ACID 1,000 MG **IV Intra-op IV SCH; +ceFAZolin 2000MG 2,000 MG/15 ML SYR IV SCH; +dexAMETHasone 4 MG TAB PO SCH
[2020-12-22] MEDS ORDERED: fentaNYL citrate 100 MCG/2 ML VIAL ONE (10:03)
[2020-12-22] MEDS ORDERED: MIDAZOLAM HCL 1 MG/ML 2ML VIAL ONE (10:03)
--- NOTE | 2020-12-22 10:37 | History & Physical Bridge Note ---
Date of Service December 22, 2020 History & Physical Bridge Note I have examined the patient, reviewed the History & Physical and in the interval since the performance of the History & Physical I have noted the following changes of clinical significance: no changes noted
[2020-12-22] MEDS ORDERED: HYDROmorphone INJ 1 MG/ML SYRINGE IV PRN (11:00)
[2020-12-22] MEDS ORDERED: ONDANSETRON INJ 2 MG/ML 2 ML VIAL IV PRN ×2 (11:00→14:59)
[2020-12-22] MEDS ORDERED: ATROPINE SULFATE 0.1 MG/ML 10ML SYR IV PRN (11:00)
[2020-12-22] MEDS ORDERED: ePHEDrine sulfate 50 MG/ML AMP IV PRN (11:00)
[2020-12-22] MEDS ORDERED: ORTHO JOINT ANESTHETIC ONE (11:05)
[2020-12-22] MEDS ORDERED: PROPOFOL IV EMULSION 10 MG/ML 20 ML VIAL IV ONE ×2 (12:02→12:38)
[2020-12-22] MEDS ORDERED: ONDANSETRON INJ 2 MG/ML 2 ML VIAL ONE (12:38)
[2020-12-22] MEDS ORDERED: LIDOCAINE 2% 2 ML VIAL/AMP(20MG/ML) INFIL ONE (12:59)
--- NOTE | 2020-12-22 13:06 | Operative Report ---
PG Post Operative Report Pre & Post Diagnosis Operation Date: 12/22/20 10:20 Pre-Op Diagnosis: Osteoarthritis, Left Knee Post-Op Diagnosis: Osteoarthritis, Left Knee I identified the patient and participated in the time-out.: Yes Procedure Operation Date: 12/22/20 10:20 Actual Procedures p Left Total Knee Arthroplasty(Left) - Edgard Yang DO Surgeon Edgard Yang, Shader And Toner Edgard Mo PAC Estimated Blood Loss 10 Findings Consistent with Post-Op Diagnosis Specimens Left femoral and tibial bone Complications none Disposition Disposition: Recovery Room Indications Rama is a pleasant 75-year-old female who is been doing chronic increasing left knee pain. X-rays and clinical examination were diagnostic for advanced osteoarthritis of the left knee. After failing conservative treatment, she elected proceed with a left total knee arthroplasty. Description of Procedure Implants used: I used a [employer] total knee arthroplasty system with a size 6 narrow femur, E tibia, 29 patella, and a size 10 medial congruent polyethylene bearing. All components were cemented in place with Simplex HV cement. Rama arrived [facility] for the above procedure. He was seen in the preoperative holding area and the operative extremity was identified and signed. He was given a preoperative antibiotic, TXA, a spinal anesthetic and an adductor nerve block. He was taken back to the operating room and laid on the table in supine position. He was given basic sedation. The operative knee was then prepped and draped in sterile fashion. A timeout was done, and the patient and the operative extremity was properly identified. A midline incision was made directly over the patella. Dissection was taken down to the extensor mechanism. A subvastus arthrotomy was used. The medial retinaculum was released and the fat pad was mostly excised. The knee was flexed and the ACL, PCL, and meniscus were removed. A drill was sent down the center of the femoral canal followed by an intramedullary jaycee. Off that jaycee a distal femoral cutting block was placed. 9 mm was resected off the distal femur at 5 of valgus. A posterior referencing AP sizing guide was then placed on the distal femur. The femur measured to be a size 6. 2 drill holes were placed in 3 of external rotation. A 4-in-1 cutting block was then impacted into place. Anterior, posterior, and chamfer cuts were then made. The proximal tibia was then exposed. An external tibial alignment guide was placed. A tibial cut guide was then anchored in place and the proximal tibia was then resected. The posterior aspect of the knee was then opened up and any additional meniscus fragments and osteophytes were removed. The tibia measured to be a size E. The tibial plate was then placed in the appropriate rotation and the tibia was drilled and punched. Trial components were then placed. I used a size 10 medial congruent polyethylene insert. The knee was brought through a full range of motion and felt to be stable. The peg holes for the femoral component were then drilled. The patella was then everted and 9 mm was resected off the posterior aspect of the patella. The patella measured to be a size 29. 3 peg holes were then drilled. A trial patella was placed. The knee was once again brought through a full range of motion and felt to be stable. Trial components were then removed. The surrounding soft tissues were injected with 100 cc of an orthopedic pain control cocktail. All components were then cemented into place with Simplex HV cement. The final polyethylene insert was then snapped into place. Once cement was dry the tourniquet was deflated. Hemostasis was obtained. A dilute betadyne lavage was then done for 3 minutes. The joint was then irrigated with normal saline solution. The subvastus arthrotomy was then closed with #1 Vicryl suture. The skin was closed with 2-0 Vicryl, 3-0V lock suture, and mayra. A soft compressive dressing was placed. He was then transferred to a hospital bed and taken to the postanesthesia care unit in stable condition. He tolerated the procedure well. Edgard Mo PA-C, was present for the entire procedure. He was critical for patient positioning, prepping, draping, retraction exposure, wound closure and application of sterile dressing. I attest to the content of the Intraoperative Record and any orders documented therein. Any exceptions are noted below.
--- NOTE | 2020-12-22 14:09 | XRay Report ---
LEFT KNEE 2 VIEWS History: Left total knee arthroplasty. Degenerative arthritis. Postop. FINDINGS: The patient is status post a left total knee arthroplasty. The hardware is intact. No fract ure or dislocation. Skin mayra are in place. IMPRESSION: Left total knee arthroplasty. No evidence for hardware complication. ACT 112: Negative or not required by law. Electronically signed by: Fawad Holm M.D. 12/22/2020 2:08 PM
--- NOTE | 2020-12-22 14:21 | Anesthesiology Progress Note ---
Date of Service December 22, 2020 Anesthesia Post Procedure Vital Signs Vital Signs: Temp Pulse Pulse Resp BP BP Pulse Ox 12/22/20 14:15 68 22 165/64 H 94 12/22/20 14:05 70 19 154/62 H 95 12/22/20 13:55 69 15 161/63 H 94 12/22/20 13:45 70 15 157/78 H 92 12/22/20 13:38 36.6 C 73 16 156/63 H 97 12/22/20 09:45 36.6 C 64 18 161/61 H 92 12/22/20 08:27 36.8 C 71 20 159/81 H 92 Transfer of Care Handoff Completed per policy Notes Mental Status: alert / awake / arousable Patient Amnestic to Procedure: Yes Nausea / Vomiting: adequately controlled Pain: adequately controlled Airway Patency, RR, SpO2: stable & adequate BP & HR: stable & adequate Hydration State: stable & adequate Neuraxial Anesthesia: was administered and sensory block is resolving Anesthetic Complications: no major complications apparent
[2020-12-22] MEDS ORDERED: ALBUTEROL HFA 8 GM INHALER INH PRN (14:59)
[2020-12-22] MEDS ORDERED: NALOXONE HCL 0.4 MG/1 ML VIAL/CARP IV PRN (14:59)
[2020-12-22] MEDS ORDERED: bisacodyL 10 MG SUPP PR PRN (14:59)
[2020-12-22] MEDS ORDERED: METOCLOPRAMIDE HCL INJ 5 MG/ML 2 ML VIAL IV PRN (14:59)
[2020-12-22] MEDS ORDERED: MAGNESIUM HYDROXIDE SUSP 30 ML UDC PO PRN (14:59)
[2020-12-22] MEDS ORDERED: HYDROmorphone INJ 0.5 MG/0.5 ML SYR IV PRN (14:59)
[2020-12-22] MEDS ORDERED: oxyCODONE HCL IR 5 MG TAB (IMMEDIATE RELEASE) PO PRN (14:59)
[2020-12-22] MEDS ORDERED: PHARMACY GLYCEMIC MGMT CONSULT PRN (15:28)
[2020-12-22] MEDS ORDERED: GLUCOSE 10 TABS/TUBE PO PRN (15:45)
[2020-12-22] MEDS ORDERED: DEXTROSE 50% 50 ML SYRINGE IV PRN (15:45)
[2020-12-22] MEDS ORDERED: GLUCAGON FOR INJ 1 MG VIAL IM PRN (15:45)
[2020-12-22] MEDS ORDERED: GLUCOSE 40% GEL 15 GM TUBE PO PRN (15:45)
[2020-12-22] MEDS: SODIUM CHLORIDE 0.9% 1000ML 1,000 ML IV SCH (15:45)
[2020-12-22] MEDS ORDERED: CARBOHYDRATES FOR HYPOGLYCEMIA PO PRN (15:45)
[2020-12-22] MEDS: LABETALOL HCL 100 MG TAB PO SCH ×2 (15:57→20:23)
[2020-12-22] MEDS: ACETAMINOPHEN 500 MG TAB PO SCH ×2 (15:59→21:45)
[2020-12-22] MEDS: KETOROLAC TROMETHAMINE 15 MG/ML VIAL IV SCH ×2 (15:59→21:44)
[2020-12-22] MEDS: FUROSEMIDE 40 MG TAB PO SCH (16:00)
[2020-12-22] MEDS: [UNRECOGNIZED DRUG - REMARK] SCH ×2 (16:16→23:49)
[2020-12-22] MEDS ORDERED: INSULIN GLARGINE SOLOSTAR 100 UNITS/ML 3 ML PEN SC SCH (16:30)
--- NOTE | 2020-12-22 17:01 | Pharmacy Report ---
Pharmacy Glycemic Short Note 2 - Date of Service December 22, 2020 - Glycemic Short BSG Results (Last 24 hours): 12/22/20 12/22/20 08:22 13:37 POC Glucose 139 H 163 H OUTPATIENT ANTIDIABETIC REGIMEN: * Lantus 46 units SC qPM * Jardiance 25 mg PO daily * Ozempic weekly on Sundays * HbA1c: 7% (11/22/20) ASSESSMENT: * BH is a 75 year old female POD #0 s/p left total knee arthroplasty * Received intraoperative dexamethasone PO and intra-articular ortho-mix containing dexamethasone * Preop BSG of 139 mg/dL, postop BSG of 163 mg/dL * Will stress home Lantus dose in light of steroids and assess this evening for possible overnight Novolog checks PLAN FOR INPATIENT GLYCEMIC CONTROL: * Hold outpatient oral diabetes medications * Basal insulin * Lantus 54 units SQ x 1 * Bolus insulin * NovoLog per scale ACHS or Q6hrs while NPO * Goal Range: Low 110 mg/dL - High 140 mg/dL * Correction Factor: 15 mg/dL/unit * Nutritional / Prandial insulin per carb ratio of 1 unit per 5 grams CHO consumed PLAN FOR DISCHARGE: * HbA1c of 7% certainly seems reasonable for this patient based on multiple comorbidities * Continue home regimen
[2020-12-22] MEDS: carBAMazepine 200 MG TABLET PO SCH ×2 (17:31→20:21)
[2020-12-22] MEDS: INSULIN ASPART 100 UNITS/ML 3 ML PEN SC SCH ×2 (17:37→20:26)
[2020-12-22] MEDS: ASPIRIN 81 MG ECTAB PO SCH (20:20)
[2020-12-22] MEDS: DOCUSATE SODIUM 100 MG CAP PO SCH (20:22)
[2020-12-22] MEDS: ceFAZolin 2000MG 2,000 MG/15 ML SYR IV SCH (20:25)
[2020-12-22] MEDS ORDERED: ATORVASTATIN 40 MG TAB PO SCH (21:00)
[2020-12-22] MEDS ORDERED: DULoxetine HCL 60 MG CAP PO SCH (21:00)
[2020-12-22] MEDS ORDERED: MONTELUKAST SODIUM 10 MG TABLET PO SCH (21:00)
[2020-12-22] MEDS ORDERED: GABAPENTIN 300 MG CAP PO SCH (21:00)
[2020-12-22] MEDS ORDERED: POTASSIUM CHLORIDE 10 MEQ TABCR PO SCH (21:00)
[2020-12-22] MEDS ORDERED: SENNA 8.6 MG TAB PO SCH (21:00)
[2020-12-22] MEDS ORDERED: FLUTICASONE PROPIONATE NA SPR 16 GM BTL SCH (21:00)
[2020-12-23] MEDS: ceFAZolin 2000MG 2,000 MG/15 ML SYR IV SCH (03:01)
[2020-12-23] MEDS: KETOROLAC TROMETHAMINE 15 MG/ML VIAL IV SCH ×2 (03:01→08:39)
[2020-12-23] MEDS: SODIUM CHLORIDE 0.9% 1000ML 1,000 ML IV SCH (04:23)
[2020-12-23] MEDS: ACETAMINOPHEN 500 MG TAB PO SCH (05:57)
--- NOTE | 2020-12-23 06:55 | Orthopedic Progress Note ---
Date of Service December 23, 2020 Assessment & Plan (1) Status post left knee replacement: Overall she is doing very well. She is having much pain in the left knee. She will be seen by physical therapy today for ambulation and range of motion exercises. She is on aspirin for DVT prophylaxis. She can be discharged home later today. Dressing can be changed before discharge. She will follow-up with orthopedics in 2 weeks. Subjective Rama was seen and examined at bedside this morning. Overall she is doing very well. She denies any much pain in the left knee. She has been up and ambulating to the bathroom. She has no complaints.. Review of Systems All systems reviewed & are unremarkable except as noted in HPI & below. Physical Exam On physical examination of the left knee, the dressing is clean and dry. Her leg is out full extension. She has active dorsiflexion plantarflexion of her left ankle. Sensation is intact throughout.. Results & Data Results & Data Laboratory Results . Diagnostic Findings Postoperative x-rays of the left knee show the prosthesis to be in anatomic alignment without any evidence of fracture, location, or loosening. PG Care Time/CCT Total # of Minutes Spent Total Time Spent with Patient: Total time spent is greater than 50% in coordination of care (as documented) at patient's floor/unit and/or counseling patient: Coding Level of Care Code 64006 Post Operative Follow-Up Diagnoses Status post left knee replacement Z96.652
--- NOTE | 2020-12-23 06:56 | Discharge Summary ---
Date of Service December 23, 2020 Admission HPI (Per Admitting) Rama is a pleasant 75-year-old female who is been dealing with chronic increasing left knee pain. X-rays and clinical examination been diagnostic for advanced osteoarthritis of the left knee. After failing conservative treatment, she has elected proceed with a left total knee arthroplasty.. Admission Exam (Per Admitting) On physical examination of the left knee, she has a trace effusion. She is good motion of 0 to 120 degrees. She has no instability. She has tenderness palpation over the distal lateral femoral condyle and over the lateral joint line.. Principal Diagnosis Same as "Discharge Diagnosis" noted below under Discharge Instructions. Discharge Exam On physical examination of the left knee, the dressing is clean and dry. Her leg is out full extension. She has active dorsiflexion plantarflexion of her left ankle. Sensation is intact throughout.. Discharge Data Procedures Performed Operation Date: 12/22/20 10:20 Actual Procedures p Left Total Knee Arthroplasty(Left) - Edgard Yang DO Ordered Studies 12/22/20 05:00 US - OR guided needle placemen Routine Hospital Course (1) Status post left knee replacement: On December 22, [address] [facility] and underwent a left knee replacement without complication. She had a spinal anesthetic. Postoperatively she was started on aspirin for DVT prophylaxis and transferred to the general orthopedic floors. Her hospital course was uneventful. On postop day #1 her vital signs were stable and her pain was well controlled. She was a little bit hypertensive but asymptomatic. She was seen by physical therapy and was able to do ambulation and range of motion exercises. She was then discharged home. She will follow-up with orthopedics in 2 weeks. PG Care Time/CCT Total # of Minutes Spent Total Time Spent with Patient: Total time spent is greater than 50% in coordination of care (as documented) at patient's floor/unit and/or counseling patient: Discharge Plan Discharge Items Patient Disposition: Home - Home Health Services Reason For Visit: DJD Left Knee Discharge Diagnosis: Left knee replacement Activity: As commented below Non-emergency contact: Surgeon Call non-emergency contact if: your wound has increased redness Follow-up/Referrals: Ferny Sr DO [Primary Care Provider] - Diet: Regular Addtl Attending Provider Instructions: Activity and Therapy Recommendations: * If you are using [facility] then therapy will be provided at your home until they feel you have accomplished all of your goals. * If you are using [facility] then Physical Therapy will be provided until they feel you are ready to start Outpatient Physical Therapy. * If you are not using home therapy then Outpatient Physical Therapy should start about 3-5 days from your day of surgery. Therapy will last about 6-10 weeks * It is important not to put a pillow under your knee when you are relaxing or sleeping. It is just as important to make sure you are getting your knee perfectly straight as it is to regain your knee bend. * You were shown a series of exercises in the hospital. Do these exercises three times each day including the exercises you were shown in physical therapy. * Get up and walk several times each day. For the first four weeks, try not to stand or walk for more than one hour at a time. If you do stand or walk for more than one hour, you will not hurt anything, but your leg will likely swell. * As you feel comfortable, you may change from the walker or crutches to a cane and then to independent walking. Medications: * Narcotic You will likely be sent home from the hospital with a prescription for the narcotic pain medication that worked best throughout your stay. * Aspirin Most patients will be required to take Aspirin 81mg twice a day for 6 weeks after surgery. This is obtained [id number] and a prescription is not necessary. * Other medications may be prescribed for specific circumstances. If you have any questions, please call the office at . * Resume previous home medications unless otherwise instructed TEDs/Elastic Stockings: The white elastic stockings help limit swelling and prevent blood clots from forming in your legs.~ The more you wear them, the more they work. Wear them for six weeks. Dressing Care: The dressing can be changed after physical therapy on postop day #1. Daily dry dressing changes for a few days, especially if the incision is still draining some. If the incision is not draining then you may leave the mayra open to air. If there is a little bit of drainage or if the mayra are getting stuck on your clothing then cover the incision with a dry dressing. The mayra will be removed at your 2 week follow-up appointment. Showering: You may shower 5 days from the day of surgery as long as the incision is no longer draining. You may shower with the mayra exposed. Let soapy water run over the mayra and pat them dry. Do not scrub or soak the incision. Things To Watch For: * Drainage from the incision site that occurs more than one week after your surgery. * Increased redness at the incision site. * Fever above 102 degrees Fahrenheit. * Unusual chest pain or shortness of breath. * Call [facility] at with any of the above problems Follow-Up Visit: Follow-up with Dr. Yang's PA (Edgard Mo) 2-3 weeks after your day of surgery. He will remove your mayra and answer any questions. If you have any additional questions or concerns, Dr Yang is usually in the office at the same time and will be available An appointment was probably scheduled when you signed-up for surgery in the office. If you have any questions call Office Instructions: More detailed instructions as well as Frequently Asked Questions were provided in a folder by our office when you signed-up for surgery. Please review these instructions when you get home. If you have any further questions or concerns, please feel free to call the office at [phone] Pending Studies at Discharge: No Stand-Alone Forms: My [facility] Medications and DC Order Prescriptions: New oxycodone-acetaminophen [Percocet] 5-325 mg Tablet 1 tab PO Q4 PRN (Reason: Pain) Qty: 60 RF: 0 Continued gabapentin 300 mg capsule 600 mg PO HS Qty: 60 RF: 5 Ozempic 1 mg/dose (2 mg/1.5 mL) pen injector 1 mg subcut WK RF: 0 carbamazepine 200 mg tablet 200 mg PO TID RF: 0 furosemide 40 mg tablet 40 mg PO BID Qty: 60 RF: 5 Lantus Solostar U-100 Insulin 100 unit/mL (3 mL) insulin pen 46 unit SUBCUT QPM RF: 0 atorvastatin 80 mg Tablet 80 mg PO QPM RF: 0 ascorbic acid (vitamin C) [Vitamin C] 500 mg Tablet 500 mg PO QPM RF: 0 montelukast 10 mg Tablet 10 mg PO HS RF: 0 fluticasone propionate [Flonase Allergy Relief] 50 mcg/actuation Partridge,Suspension 2 spray INTRANASAL QPM RF: 0 azelastine-fluticasone 137-50 mcg/spray Partridge,Non-Aerosol 2 spray INTRANASAL HS RF: 0 labetalol 200 mg tablet 100 mg PO BID RF: 0 Jardiance 25 mg tablet 25 mg PO QAM RF: 0 potassium chloride 10 mEq Tablet Extended Release 10 meq PO QPM RF: 0 Teodora-D 24 Hour 180-240 mg Tablet Extended Release 24 Hr 1 tab PO HS RF: 0 albuterol sulfate [Proventil HFA] 90 mcg/actuation Hfa Aerosol Inhaler 2 puff INHALATION 6XD PRN (Reason: Wheezing) RF: 0 Magic Mouthwash-Otc 1 dose PO QID PRN (Reason: Mouth Pain) RF: 0 duloxetine 60 mg capsule,delayed release(DR/EC) 60 mg PO QPM RF: 0 Changed aspirin 81 mg Tablet,Delayed Release (Dr/Ec) 81 mg PO BID 42 Days Qty: 0 RF: 0 Discontinued oxycodone-acetaminophen [Percocet] 5-325 mg Tablet 1 tab PO Q8H PRN (Reason: Pain) RF: 0 Discharge Orders: Discharge Order (Routine); Ordered 12/23/20 Ordered By: Edgard Tovar/Other Patient Handouts: Managing Type 2 Diabetes, A1C Admission Data Admit Date/Time: 12/22/20 13:37 Attending Provider: Edgard Yang Admit Provider: Edgard Yang Primary Care Provider: Ferny Sr
[2020-12-23] MEDS: [UNRECOGNIZED DRUG - REMARK] SCH (08:36)
[2020-12-23] MEDS: DOCUSATE SODIUM 100 MG CAP PO SCH (08:37)
[2020-12-23] MEDS: ASPIRIN 81 MG ECTAB PO SCH (08:38)
[2020-12-23] MEDS: FUROSEMIDE 40 MG TAB PO SCH (08:38)
[2020-12-23] MEDS: LABETALOL HCL 100 MG TAB PO SCH (08:38)
[2020-12-23] MEDS: carBAMazepine 200 MG TABLET PO SCH (08:40)
[2020-12-23] MEDS: INSULIN ASPART 100 UNITS/ML 3 ML PEN SC SCH (08:55)
[2020-12-23] MEDS ORDERED: MULTIVITAMIN TAB PO SCH (09:00)
== END 2020-12-23 12:23 | disposition home health service (06) ==
LOC: ASU 07:54 → 3E 07:54

== ENCOUNTER 2021-12-21 07:57 | Observation (INO) ==
--- NOTE | 2021-11-19 10:06 | PAT Medication Instructions ---
Medication Instructions Date of Service November 19, 2021 Home Medications Medication Instructions Recorded furosemide 40 mg tablet 40 mg PO BID #60 tab 12/30/19 oxycodone-acetaminophen 5 mg-325 1 tab PO Q8H PRN #20 tab 03/21/ mg tablet (Percocet) gabapentin 300 mg capsule 300 mg PO .COMPLEX #270 cap 07/17/21 carbamazepine 400 mg 400 mg PO BID #60 tab 10/16/21 tablet,extended release,12 hr folic acid 1 mg tablet 1 mg PO DAILY #30 tab 11/05/21 mecobalamin (vitamin B12) 1,000 1,000 mcg SUBLINGUAL DAILY #30 tab 11/05/21 mcg disintegrating tablet,sublingual ascorbic acid (vitamin C) 500 mg tablet (Vitamin C) 500 mg PO QPM atorvastatin 80 mg tablet 80 mg PO DAILY montelukast 10 mg tablet 10 mg PO HS furosemide 40 mg tablet 40 mg PO BID semaglutide 1 mg/dose (2 mg/1.5 mL) subcutaneous pen injector (Ozempic) 1 mg SUBCUT WK empagliflozin 25 mg tablet (Jardiance) 25 mg PO QAM fexofenadine-pseudoephedrine ER 180 mg-240 mg tablet,ext.release 24 hr (Teodora- D 24 Hour) 1 tab PO HS oxycodone-acetaminophen 5 mg-325 mg tablet (Percocet) 1 tab PO Q8H PRN albuterol sulfate 90 mcg/actuation aerosol inhaler (Proventil HFA) 2 puff INHALATION Q6H PRN aspirin 81 mg tablet,delayed release 81 mg PO QAM azelastine-fluticasone 137 mcg-50 mcg/spray nasal spray 2 spray INTRANASAL HS fluticasone propionate 50 mcg/actuation nasal spray,suspension (Flonase Allergy Relief) 1 spray INTRANASAL HS insulin glargine 100 unit/mL (3 mL) subcutaneous pen (Lantus Solostar U-100 Insulin) 46 unit SUBCUT QPM labetalol 200 mg tablet 200 mg PO lisinopril 5 mg tablet 5 mg PO QPM gabapentin 300 mg capsule 300 mg PO .COMPLEX carbamazepine 400 mg tablet,extended release,12 hr 400 mg PO BID folic acid 1 mg tablet 1 mg PO DAILY mecobalamin (vitamin B12) 1,000 mcg disintegrating tablet,sublingual 1,000 mcg SUBLINGUAL DAILY calcium 600 mg capsule 1,200 mg PO DAILY cholecalciferol (vitamin D3) 25 mcg (1,000 unit) tablet (Vitamin D3) 25 mcg PO DAILY duloxetine 60 mg capsule,delayed release 60 mg PO HS letrozole 2.5 mg tablet 2.5 mg PO QPM Continue as directed atorvastatin 80 mg tablet 80 mg PO DAILY semaglutide 1 mg/dose (2 mg/1.5 mL) subcutaneous pen injector (Ozempic) 1 mg SUBCUT WK (not day of surgery) labetalol 200 mg tablet 200 mg PO gabapentin 300 mg capsule 300 mg PO .COMPLEX ASK your prescriber and surgeon letrozole 2.5 mg tablet 2.5 mg PO QPM DO NOT take the morning of surgery furosemide 40 mg tablet 40 mg PO BID empagliflozin 25 mg tablet (Jardiance) 25 mg PO QAM folic acid 1 mg tablet 1 mg PO DAILY mecobalamin (vitamin B12) 1,000 mcg disintegrating tablet,sublingual 1,000 mcg SUBLINGUAL DAILY calcium 600 mg capsule 1,200 mg PO DAILY cholecalciferol (vitamin D3) 25 mcg (1,000 unit) tablet (Vitamin D3) 25 mcg PO DAILY Take morning of surgery With a small sip of water, OTHERWISE NOTHING TO EAT OR DRINK AFTER MIDNIGHT: oxycodone-acetaminophen 5 mg-325 mg tablet (Percocet) 1 tab PO Q8H PRN(okay to take up to 4 hours prior to surgery if needed) albuterol sulfate 90 mcg/actuation aerosol inhaler (Proventil HFA) 2 puff INHALATION Q6H PRN(use if needed; please bring with you to hospital day of surgery if possible) aspirin 81 mg tablet,delayed release 81 mg PO QAM (unless surgeon directed otherwise) carbamazepine 400 mg tablet,extended release,12 hr 400 mg PO BID Take evening before surgery ascorbic acid (vitamin C) 500 mg tablet (Vitamin C) 500 mg PO QPM montelukast 10 mg tablet 10 mg PO HS furosemide 40 mg tablet 40 mg PO BID fexofenadine-pseudoephedrine ER 180 mg-240 mg tablet,ext.release 24 hr (Teodora- D 24 Hour) 1 tab PO HS oxycodone-acetaminophen 5 mg-325 mg tablet (Percocet) 1 tab PO Q8H PRN(if needed) albuterol sulfate 90 mcg/actuation aerosol inhaler (Proventil HFA) 2 puff INHALATION Q6H PRN(if needed) azelastine-fluticasone 137 mcg-50 mcg/spray nasal spray 2 spray INTRANASAL HS fluticasone propionate 50 mcg/actuation nasal spray,suspension (Flonase Allergy Relief) 1 spray INTRANASAL HS insulin glargine 100 unit/mL (3 mL) subcutaneous pen (Lantus Solostar U-100 Insulin) 46 unit SUBCUT QPM lisinopril 5 mg tablet 5 mg PO QPM carbamazepine 400 mg tablet,extended release,12 hr 400 mg PO BID duloxetine 60 mg capsule,delayed release 60 mg PO HS Other Notes If you have any questions please call us at [phone] or [phone] or [phone] or [phone]
--- NOTE | 2021-11-20 13:41 | Anesthesiology Consultation ---
Date of Service November 20, 2021 Assessment & Plan (1) Encounter for pre-operative examination: - supplemental oxygen: Pt reports needing supplemental oxygen during the day in past, states for years has noted O2 below 90% intermittently and currently only using supplemental oxygen at night. She reports upcoming pre-op PCP appt, optimization note completed regarding supplemental oxygen status. Awaiting PCP response. - check BSG am DOS. - COVID screening: Per assessment on 11/20/2021: Travel screen negative, no known COVID-19 positive contacts or current COVID-19 related symptoms in past 2 weeks. Patient vaccinated. Surgeon arranging preop COVID testing, scheduled 12/19/2021. Awaiting results. Chart Review Chart Review: Pending: Refer to Additional Notes / Consult section and Patient seen in Pre Admission Testing Teaching & Discussion Pre-Anesthesia Teaching/Discussion Notes: Instructed NPO after midnight before surgery, except medications with 15 cc of water. Medication instructions provided according to the PAT guidelines. History Surgery Operation Date: 12/21/21 13:10 Proposed Procedures p Right Total Knee Arthroplasty - Edgard Yang DO Height/Weight Height: 5 ft 4 in Weight: 108.5 kg Allergies Allergy/AdvReac Type Severity Reaction Status Date / Time clarithromycin Allergy Mild Mouth Verified 11/16/21 15:05 burning Medications Home Medications Medication Instructions Recorded Confirmed Last Taken ascorbic acid (vitamin C) 500 mg 500 mg PO QPM 11/12/18 11/16/21 12/21/20 09:00 tablet (Vitamin C) atorvastatin 80 mg tablet 80 mg PO DAILY 11/12/18 11/16/21 12/21/20 22:00 montelukast 10 mg tablet 10 mg PO HS 11/12/18 11/16/21 12/21/20 22:00 furosemide 40 mg tablet 40 mg PO BID #60 tab 12/30/19 11/16/21 12/21/20 14:00 semaglutide 1 mg/dose (2 mg/1.5 1 mg SUBCUT WK 04/18/20 11/16/21 12/17/20 12:00 mL) subcutaneous pen injector (Ozempic) empagliflozin 25 mg tablet 25 mg PO QAM 07/18/20 11/16/21 12/21/20 10:00 (Jardiance) fexofenadine-pseudoephedrine ER 1 tab PO HS 07/18/20 11/16/21 12/21/20 22:00 180 mg-240 mg tablet,ext.release 24 hr (Teodora-D 24 Hour) oxycodone-acetaminophen 5 mg-325 1 tab PO Q8H PRN #20 tab 03/21/21 11/16/21 Unknown mg tablet (Percocet) albuterol sulfate 90 mcg/actuation 2 puff INHALATION Q6H PRN g 07/04/21 11/16/21 Unknown aerosol inhaler (Proventil HFA) aspirin 81 mg tablet,delayed 81 mg PO QAM tab 07/04/21 11/16/21 Unknown release azelastine-fluticasone 137 mcg-50 2 spray INTRANASAL HS g 07/04/21 11/16/21 Unknown mcg/spray nasal spray fluticasone propionate 50 1 spray INTRANASAL HS g 07/04/21 11/16/21 Unknown mcg/actuation nasal spray,suspension (Flonase Allergy Relief) insulin glargine 100 unit/mL (3 46 unit SUBCUT QPM ml 07/04/21 11/16/21 Unknown mL) subcutaneous pen (Lantus Solostar U-100 Insulin) labetalol 200 mg tablet 200 mg PO .as directed tab 07/04/21 11/16/21 Unknown lisinopril 5 mg tablet 5 mg PO QPM 07/04/21 11/16/21 Unknown gabapentin 300 mg capsule 300 mg PO .COMPLEX #270 cap 07/17/21 11/16/21 Unknown carbamazepine 400 mg 400 mg PO BID #60 tab 10/16/21 11/16/21 Unknown tablet,extended release,12 hr folic acid 1 mg tablet 1 mg PO DAILY #30 tab 11/05/21 11/16/21 Unknown mecobalamin (vitamin B12) 1,000 1,000 mcg SUBLINGUAL DAILY #30 tab 11/05/21 11/16/21 Unknown mcg disintegrating tablet,sublingual calcium 600 mg capsule 1,200 mg PO DAILY 11/16/21 11/16/21 Unknown cholecalciferol (vitamin D3) 25 25 mcg PO DAILY 11/16/21 11/16/21 Unknown mcg (1,000 unit) tablet (Vitamin D3) duloxetine 60 mg capsule,delayed 60 mg PO HS 11/16/21 11/16/21 Unknown release letrozole 2.5 mg tablet 2.5 mg PO QPM 11/16/21 11/16/21 Unknown Past Medical History Medical History (Updated 11/20/21 @ 15:34 by Giselle Howard PA-C) Anxiety and depression Asthma last rescue inhaler use > 6 months ago Chronic diastolic (congestive) heart failure echo 12/2019 - EF 55-60%, grade I diastolic dysfunction CKD (chronic kidney disease) stage 3, GFR 30-59 ml/min Follows with S PCP and internal medicine Coronary artery calcification Dependent edema on diuretic, chronic per pt without change or worsening Diabetes mellitus, type 2 NIDDM Diabetic neuropathy B/L feet, legs Disc disorder of lumbar region Dyslipidemia Glaucoma Hearing deficit Left ear - no hearing aids History of carotid stenosis s/p R/L carotid endarterectomy (2003) History of gastric ulcer > 40 yrs ago History of skin cancer HX: breast cancer R partial mastectomy and radiation, no chemo-denies limb restriction Hypertension controlled, stable per pt Polyneuropathy Pulmonary histoplasmosis Remote hx > chronic interstitial thickening and calcified granulomas noted on prior CXRs Sleep apnea BIPAP + 4L O2-compliant Stroke 2003 - intermittent vertigo and occasional right sided weakness Trigeminal neuralgia s/p trigeminal decompression (). On carbamazepine, follows with [facility] neuro (Dr. Jackson) Patient denies h/o seizures, heart attack, blood clots or blood transfusions. Exercise / Class Metabolic Activity III < 4 Walking/Shop/Light housework (denies CP or SOB) Past Family History Family History Father , age 96 of a stroke Coronary heart disease Stroke Mother , age 79 of an IA Myocardial infarction Brother Ankylosing spondylitis of site in spine Daughter No problems noted. Son No problems noted. Other No family history of adverse response to anesthesia Past Surgical History Surgical History (Updated 11/20/21 @ 15:28 by Giselle Howard PA-C) Fatty tumor "removed" H/O partial mastectomy R breast History of cataract surgery RT/LEFT History of cholecystectomy History of colonoscopy w/ polypectomy History of esophagogastroduodenoscopy (EGD) History of surgery Trigeminal decompression of 5th nerve History of surgical removal of ganglion cyst History of tonsillectomy and adenoidectomy History of tooth extraction History of total knee replacement LEFT History of total shoulder replacement Right (11/14/17): Elective Glidescope #3 due to Grade 3 View and difficulty visualizing cords, ETT #7.0. Patient re-positioned twice. History of total shoulder replacement Left shoulder replacement (12/25/18): Grade 3 view (unable to read details regarding grade view on anesthesia records), Glidescope #3, ETT 7.5 + PNB at [facility] Hx of dilation and curettage S/P carotid endarterectomy S/P lumpectomy, right breast With right axillary SLN biopsy on 06/06/[address] Goel Status post left knee replacement (~12/2020) Past Anesthesia History No Hx of Anesthesia Complications and No Family Hx of Anesthesia Complications History of PONV No Hx of PONV and No Hx of Motion Sickness Social History Smoking Status: Former smoker tobacco type: cigarettes Smoking cigarettes per day: 1 PPD x 40 yrs Do You Dip or Chew Tobacco: No Smoking End Date: 04/2012 Hx Alcohol Use: Yes Alcohol type: hard liquor alcohol intake frequency: other (twice year) Hx Substance Use: No substance use type: does not use Review of Systems Patient denies chest pain, shortness of breath, dyspnea on exertion, fever, chills, cough, wheezing, or palpitations. Physical Exam Vital Signs Vitals BP 151/69 P 72 TEMP 98.1 SP02 94% on RA RESP 17 Physical Full cervical extension range of motion without pain TMD 3.5 finger breaths Mallampati Score 3 Dentition: intact, multiple crowns-none in front, upper right bridge and lower left bridge; denies chipped or loose teeth Lungs: normal respiratory effort. Clear throughout to auscultation, no adventitious breath sounds Cardiac: regular rate and rhythm, no murmurs noted Carotid arteries: negative bruit bilat Lab Results Anesthesia Preop Results Results Anesthesia Widget: WBC 9.14 K/uL (4.8-10.8) 11/20/21 Hgb 12.7 g/dL (12.0-16.0) 11/20/21 Hct 40.5 % (37-47) 11/20/21 Plt 282 K/uL (130-400) 11/20/21 Na 142 mmol/L (136-145) 11/20/21 K 3.7 mmol/L (3.5-5.1) 11/20/21 Cl 99 mmol/L (98-107) 11/20/21 CO2 36 mmol/L (21-32) H 11/20/21 BUN 12 mg/dl (6-23) 11/20/21 Creat 0.73 mg/dl (0.6-1.2) 11/20/21 Glucose Level 105 mg/dl (70-99(Fasting)) H 11/20/21 PT 10.9 Seconds (9.0-12.0) 11/20/21 PTT 26.1 Seconds (21.0-31.0) 11/20/21 INR 1.0 (0.9-1.1) 11/20/21 HA1c 6.1 % (4.5-5.6) H 11/20/21 Blood Type O Negative 11/20/21 Antibody Screen NEGATIVE 11/20/21 Testing Electrocardiogram Date: 05/10/21 NSR, rate 69 bpm Echocardiogram Date: 12/29/19 EF 60-65% Moderate cLVH Grade I diastolic dysfunction Grossly normal valvular structure and function Stress Test Date: 12/05/20 Dobutamine Nondiagnostic d/t failure to achieve target HR Other Testing CT chest 05/16/22 4 mm solid LLL image 4 mm solid LLL image 3 mm solid RLL image 4 mm solid RLL nodule image Other sub 4 mm pulmonary nodules are unchanged in burden and size, including new nodule from prior exam Calcified granulomas Chronic collapse of the right middle lobe along with bronchial wall thickening Subpleural ground glass in both posterior lower lobes, nonspecific may be postinflammatory or a nonspecific interstitial lung abnormality Coronary artery calcifications Mitral annular calcifications Mild aortic root calcifications Calcified lymph nodes
--- NOTE | 2021-12-20 12:12 | History & Physical Report ---
Date of Service December 20, 2021 Assessment & Plan (1) Osteoarthritis of right knee: We will proceed with a right total knee arthroplasty. Postoperatively she will be started on aspirin for DVT prophylaxis and kept overnight in the hospital for postop medical management. She plans to have the hospital set up home health upon discharge. History of Present Illness Chief Complaint: Osteoarthritis of the right knee. Primary Care Provider: Ferny Sr DO Rama is a pleasant 75-year-old female who has been dealing with chronic worsening right knee pain. I did a left knee replacement on her about a year ago and she has done fairly well with that. Unfortunately, she is really struggling with her right knee. It hurts her when she walks long distances or goes up or downstairs. X-rays have shown advanced arthritis. She has elected to proceed with a right total knee arthroplasty. . Allergies Allergy/AdvReac Type Severity Reaction Status Date / Time clarithromycin Allergy Mild Mouth Verified 12/06/21 14:38 burning Home Medications Medication Instructions Recorded Confirmed Type ascorbic acid (vitamin C) 500 mg 500 mg PO QPM 11/12/18 12/06/21 History tablet (Vitamin C) atorvastatin 80 mg tablet 80 mg PO DAILY 11/12/18 12/06/21 History montelukast 10 mg tablet 10 mg PO HS 11/12/18 12/06/21 History furosemide 40 mg tablet 40 mg PO BID #60 tab 12/30/19 12/06/21 Rx semaglutide 1 mg/dose (2 mg/1.5 1 mg SUBCUT WK 04/18/20 12/06/21 History mL) subcutaneous pen injector (Ozempic) empagliflozin 25 mg tablet 25 mg PO QAM 07/18/20 12/06/21 History (Jardiance) fexofenadine-pseudoephedrine ER 1 tab PO HS 07/18/20 12/06/21 History 180 mg-240 mg tablet,ext.release 24 hr (Teodora-D 24 Hour) oxycodone-acetaminophen 5 mg-325 1 tab PO Q8H PRN #20 tab 03/21/21 12/06/21 Rx mg tablet (Percocet) albuterol sulfate 90 mcg/actuation 2 puff INHALATION Q6H PRN g 07/04/21 12/06/21 History aerosol inhaler (Proventil HFA) aspirin 81 mg tablet,delayed 81 mg PO QAM tab 07/04/21 12/06/21 History release azelastine-fluticasone 137 mcg-50 2 spray INTRANASAL HS g 07/04/21 12/06/21 History mcg/spray nasal spray fluticasone propionate 50 1 spray INTRANASAL HS g 07/04/21 12/06/21 History mcg/actuation nasal spray,suspension (Flonase Allergy Relief) insulin glargine 100 unit/mL (3 46 unit SUBCUT QPM ml 07/04/21 12/06/21 History mL) subcutaneous pen (Lantus Solostar U-100 Insulin) labetalol 200 mg tablet 200 mg PO .as directed tab 07/04/21 12/06/21 History lisinopril 5 mg tablet 5 mg PO QPM 07/04/21 12/06/21 History gabapentin 300 mg capsule 300 mg PO .COMPLEX #270 cap 07/17/21 12/06/21 Rx carbamazepine 400 mg 400 mg PO BID #60 tab 10/16/21 12/06/21 Rx tablet,extended release,12 hr folic acid 1 mg tablet 1 mg PO DAILY #30 tab 11/05/21 12/06/21 Rx mecobalamin (vitamin B12) 1,000 1,000 mcg SUBLINGUAL DAILY #30 tab 11/05/21 12/06/21 Rx mcg disintegrating tablet,sublingual calcium 600 mg capsule 1,200 mg PO DAILY 11/16/21 12/06/21 History cholecalciferol (vitamin D3) 25 25 mcg PO DAILY 11/16/21 12/06/21 History mcg (1,000 unit) tablet (Vitamin D3) duloxetine 60 mg capsule,delayed 60 mg PO HS 11/16/21 12/06/21 History release letrozole 2.5 mg tablet 2.5 mg PO QPM 11/16/21 12/06/21 History potassium chloride 10 mEq 10 meq PO DAILY 12/06/21 12/06/21 History capsule,extended release Past Med/Surg History Medical History Anxiety and depression Asthma last rescue inhaler use > 6 months ago Chronic diastolic (congestive) heart failure echo 12/2019 - EF 55-60%, grade I diastolic dysfunction CKD (chronic kidney disease) stage 3, GFR 30-59 ml/min Follows with [facility] PCP and internal medicine Coronary artery calcification Dependent edema on diuretic, chronic per pt without change or worsening Diabetes mellitus, type 2 NIDDM Diabetic neuropathy B/L feet, legs Disc disorder of lumbar region Dyslipidemia Glaucoma Hearing deficit Left ear - no hearing aids History of carotid stenosis s/p R/L carotid endarterectomy (2003) History of gastric ulcer > 40 yrs ago History of skin cancer HX: breast cancer R partial mastectomy and radiation, no chemo-denies limb restriction Hypertension controlled, stable per pt Polyneuropathy Pulmonary histoplasmosis Remote hx > chronic interstitial thickening and calcified granulomas noted on prior CXRs Sleep apnea BIPAP + 4L O2-compliant Stroke 2003 - intermittent vertigo and occasional right sided weakness Trigeminal neuralgia s/p trigeminal decompression (). On carbamazepine, follows with [facility] neuro (Dr. Jackson) Surgical History Fatty tumor "removed" H/O partial mastectomy R breast History of cataract surgery RT/LEFT History of cholecystectomy History of colonoscopy w/ polypectomy History of esophagogastroduodenoscopy (EGD) History of surgery Trigeminal decompression of 5th nerve History of surgical removal of ganglion cyst History of tonsillectomy and adenoidectomy History of tooth extraction History of total knee replacement LEFT History of total shoulder replacement Right (11/14/17): Elective Glidescope #3 due to Grade 3 View and difficulty visualizing cords, ETT #7.0. Patient re-positioned twice. History of total shoulder replacement Left shoulder replacement (12/25/18): Grade 3 view (unable to read details regarding grade view on anesthesia records), Glidescope #3, ETT 7.5 + PNB at [facility] Hx of dilation and curettage S/P carotid endarterectomy S/P lumpectomy, right breast With right axillary SLN biopsy on 06/06/[address] Goel Status post left knee replacement (~12/2020) Family History Father , age 96 of a stroke Coronary heart disease Stroke Mother , age 79 of an HI Myocardial infarction Brother Ankylosing spondylitis of site in spine Daughter No problems noted. Son No problems noted. 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 Feels Safe at Home: Yes caffeine: Yes (4 cups/week) during the past year weight has: remained stable Assistive Devices: BiPap, Cane, Glasses, Oxygen - Continuous and Walker Review of Systems All systems reviewed & are unremarkable except as noted in HPI & below. Physical Exam On physical examination the right knee, she has a slight valgus deformity. She is range of motion of 0 to 120 degrees. She has no instability. She has pain of the distal medial femoral condyle and over the medial joint line Constitutional WD/WN, vitals as above Eyes PERRL, conjunctivae normal, anicteric sclerae ENMT external ear and nose normal, oropharynx normal Neck trachea midline, no thyromegaly Respiratory normal respiratory effort Cardiovascular RRR, no murmur, no edema Gastrointestinal (Abdomen) normal bowel sounds, soft, nontender, no hepatosplenomegaly Psychiatric A+Ox3, euthymic affect Results & Data Results & Data Laboratory Results . Diagnostic Findings X-rays of the right knee show advanced osteoarthritis with joint space narrowing, osteophyte formation, and [id number] articulation PG Care Time/CCT Total # of Minutes Spent Total Time Spent with Patient: Total time spent is greater than 50% in coordination of care (as documented) at patient's floor/unit and/or counseling patient: Coding Level of Care Code None Diagnoses Osteoarthritis of right knee M17.11
[~2021-12-21 07:57] MED LIST changes: -BUPIVACAINE 0.5 % 5 MG/1 ML PF 10ML VIAL ONE; +Ketorolac (*for OR use only*) 30 MG, dexAMETHasone 4 MG, KETAMINE HCL (**OR use only) 1... INFIL SCH; +LR 15ML/HR IV SCH; -LR 500ML BOLUS, THEN 15ML/HR IV SCH; -ROPIVACAINE 0.5% 5 MG/ML 30 ML VIAL ONE; -ROPIVACAINE 0.5% HCL/PF 150 MG, BUPIVACAINE 0.75% MPF 20 ML, EPINEPHrine 30MG/30ML (OR ... INSTIL SCH
[2021-12-21] MEDS ORDERED: BUPIVACAINE 0.5 % 5 MG/1 ML PF 10ML VIAL ONE (08:07)
[2021-12-21] MEDS ORDERED: fentaNYL citrate 100 MCG/2 ML VIAL ONE (08:29)
[2021-12-21] MEDS ORDERED: MIDAZOLAM HCL 1 MG/ML 2ML VIAL ONE (08:29)
[2021-12-21] MEDS ORDERED: PROPOFOL IV EMULSION 10 MG/ML 20 ML VIAL IV ONE (08:29)
--- NOTE | 2021-12-21 09:00 | History & Physical Bridge Note ---
Date of Service December 21, 2021 History & Physical Bridge Note I have examined the patient, reviewed the History & Physical and in the interval since the performance of the History & Physical I have noted the following changes of clinical significance: no changes noted
[2021-12-21] MEDS ORDERED: ORTHO JOINT ANESTHETIC ONE (09:20)
[2021-12-21] MEDS ORDERED: fentaNYL citrate 100 MCG/2 ML VIAL IV PRN (09:36)
[2021-12-21] MEDS ORDERED: HYDROmorphone INJ 2 MG/ML SYR/VIAL IV PRN (09:36)
[2021-12-21] MEDS ORDERED: ePHEDrine sulfate 50 MG/ML AMP IV PRN (09:36)
[2021-12-21] MEDS ORDERED: ATROPINE SULFATE 0.1 MG/ML 10ML SYR IV PRN (09:36)
[2021-12-21] MEDS ORDERED: ONDANSETRON INJ 2 MG/ML 2 ML VIAL IV PRN ×2 (09:36→13:43)
[2021-12-21] MEDS ORDERED: METOPROLOL TARTRATE 1 MG/ML VIAL IV ONE (10:42)
[2021-12-21] MEDS ORDERED: ONDANSETRON INJ 2 MG/ML 2 ML VIAL ONE (10:55)
--- NOTE | 2021-12-21 11:20 | Operative Report ---
PG Post Operative Report Pre & Post Diagnosis Operation Date: 12/21/21 10:30 Pre-Op Diagnosis: Right Knee Degenerative Joint Disease Post-Op Diagnosis: Right Knee Degenerative Joint Disease I identified the patient and participated in the time-out.: Yes Procedure Operation Date: 12/21/21 10:30 Actual Procedures p Right Total Knee Arthroplasty(Right) - Edgard Yang DO Surgeon Edgard Yang DO Director Advertising Edgard Mo PAC Estimated Blood Loss 10 Findings Consistent with Post-Op Diagnosis Specimens Right knee replacement Complications none Disposition Disposition: Recovery Room Indications Rama is a pleasant 76-year-old female who is been dealing chronic increasing right knee pain. X-rays and clinical examination have been diagnostic for advanced arthritis of the right knee. After failing conservative treatment, she elected proceed with a right total knee arthroplasty. Description of Procedure Implants used: I used a [employer] total knee arthroplasty system with a size 6 standard femur, D tibia, 31 oval patella, and a size 10 medial congruent polyethylene bearing. All components were cemented in place with Biomet cement. Rama arrived [facility] for the above procedure. She was seen in the preoperative holding area and the operative extremity was identified and signed. She was given a preoperative antibiotic, TXA, a spinal anesthetic and an adductor nerve block. She was taken back to the operating room and laid on the table in supine position. She was given basic sedation. The operative knee was then prepped and draped in sterile fashion. A timeout was done, and the patient and the operative extremity was properly identified. A midline incision was made directly over the patella. Dissection was taken down to the extensor mechanism. A subvastus arthrotomy was used. The medial retinaculum was released and the fat pad was mostly excised. The knee was flexed and the ACL, PCL, and meniscus were removed. A drill was sent down the center of the femoral canal followed by an intramedullary jaycee. Off that jaycee a distal femoral cutting block was placed. 9 mm was resected off the distal femur at 5 of valgus. A posterior referencing AP sizing guide was then placed on the distal femur. The femur measured to be a size 6. 2 drill holes were placed in 3 of external rotation. A 4-in-1 cutting block was then impacted into place. Anterior, posterior, and chamfer cuts were then made. The proximal tibia was then exposed. An external tibial alignment guide was placed. A tibial cut guide was then anchored in place and the proximal tibia was then resected. The posterior aspect of the knee was then opened up and any additional meniscus fragments and osteophytes were removed. The tibia measured to be a size D. The tibial plate was then placed in the appropriate rotation and the tibia was drilled and punched. Trial components were then placed. I used a size 10 medial congruent polyethylene insert. The knee was brought through a full range of motion and felt to be stable. The peg holes for the femoral component were then drilled. The patella was then everted and 9 mm was resected off the posterior aspect of the patella. The patella measured to be a size 31 oval. 3 peg holes were then drilled. A trial patella was placed. The knee was once again brought through a full range of motion and felt to be stable. Trial components were then removed. The surrounding soft tissues were injected with 100 cc of an orthopedic pain control cocktail. All components were then cemented into place with Biomet cement. The final polyethylene insert was then snapped into place. Once cement was dry the tourniquet was deflated. Hemostasis was obtained. A dilute betadyne lavage was then done for 3 minutes. The joint was then irrigated with normal saline solution. The subvastus arthrotomy was then closed with #1 Vicryl suture. The skin was closed with 2-0 Vicryl, 3-0V lock suture, and mayra. A soft compressive dressing was placed. She was then transferred to a hospital bed and taken to the postanesthesia care unit in stable condition. She tolerated the procedure well. Edgard Mo PA-C, was present for the entire procedure. He was critical for patient positioning, prepping, draping, retraction exposure, wound closure and application of sterile dressing. I attest to the content of the Intraoperative Record and any orders documented therein. Any exceptions are noted below.
--- NOTE | 2021-12-21 12:34 | Anesthesiology Progress Note ---
Date of Service December 21, 2021 Anesthesia Post Procedure Vital Signs Vital Signs: Temp Pulse Resp BP Pulse Ox 12/21/21 12:20 60 14 188/64 H 94 12/21/21 12:10 55 L 14 180/64 H 94 12/21/21 12:00 57 L 14 176/66 H 95 12/21/21 11:50 36.0 C L 59 L 13 170/68 H 97 12/21/21 11:43 36.0 C L 63 18 147/67 H 93 12/21/21 08:45 36.9 C 62 20 148/57 H 93 Pain Intensity Right Knee: Pain Intensity: 0 Transfer of Care Handoff Completed per policy Notes Mental Status: alert / awake / arousable and participated in evaluation Patient Amnestic to Procedure: Yes Nausea / Vomiting: adequately controlled Pain: adequately controlled Airway Patency, RR, SpO2: stable & adequate BP & HR: stable & adequate Hydration State: stable & adequate Anesthetic Complications: no major complications apparent and Pt Satisfied with anesthetic care
--- NOTE | 2021-12-21 12:58 | XRay Report ---
TWO VIEWS RIGHT KNEE CLINICAL HISTORY: Postoperative examination. FINDINGS: AP and crosstable lateral portable views of the right knee are obtained. A right knee arthr oplasty is in near anatomic alignment. There has been undersurface remodeling of the patella. No acut e fracture is seen. There are expected postoperative changes around the knee including skin clips, so ft tissue edema, and subcutaneous gas. There is atherosclerotic calcification of the popliteal artery . IMPRESSION: Expected postoperative changes status post right knee arthroplasty. No acute fracture is seen. ACT 112: Negative or not required by law. Electronically signed by: Michael Rajan M.D. 12/21/2021 12:56 PM
[2021-12-21] MEDS ORDERED: bisacodyL 10 MG SUPP PR PRN (13:43)
[2021-12-21] MEDS ORDERED: MAGNESIUM HYDROXIDE SUSP 30 ML UDC PO PRN (13:43)
[2021-12-21] MEDS ORDERED: HYDROmorphone INJ 0.5 MG/0.5 ML SYR IV PRN (13:43)
[2021-12-21] MEDS ORDERED: METOCLOPRAMIDE HCL INJ 5 MG/ML 2 ML VIAL IV PRN (13:43)
[2021-12-21] MEDS ORDERED: ALBUTEROL HFA 8 GM INHALER INH PRN (13:43)
[2021-12-21] MEDS ORDERED: PHARMACY GLYCEMIC MGMT CONSULT PRN (13:43)
[2021-12-21] MEDS ORDERED: NALOXONE HCL 0.4 MG/1 ML VIAL/CARP IV PRN (13:43)
--- NOTE | 2021-12-21 15:05 | Pharmacy Report ---
Pharmacy Glycemic Short Note 2 - Date of Service December 21, 2021 - Glycemic Short BSG Results (Last 24 hours): 12/21/21 12/21/21 12/21/21 09:59 12:17 14:22 POC Glucose 87 91 116 H OUTPATIENT ANTIDIABETIC REGIMEN: * Lantus 46 units SQ QPM at 16:30 (last dose 12/20/21 @16:30) * Ozempic 1 mg SQ weekly (last dose on 12/16/21) * Jardiance 25 mg PO daily ASSESSMENT: * 76 y/o F admitted for right TKA today. Patient with history of diabetes managed at home on basal insulin and two other meds. * She seems to have received PO Dexamethasone 8 mg in the OR today. Expect BSG to trend up this evening due to steroid induced hyperglycemia. * BSGs today were 87-91-116 mg/dl. * Basal dose scale ordered at 16:30 today based on BSG then. * Novolog ordered based on wt and stress of 2. PLAN FOR INPATIENT GLYCEMIC CONTROL: * Hold outpatient oral diabetes medications * Basal insulin * Lantus 20-35 units scale SQ based on BSG QPM @16:30 * Bolus insulin * NovoLog per scale ACHS or Q6hrs while NPO * Goal Range: Low 120 mg/dL - High 150 mg/dL * Correction Factor: 25 mg/dL/unit * Nutritional / Prandial insulin per carb ratio of 1 unit per 8 grams CHO consumed
[2021-12-21] MEDS ORDERED: INSULIN ASPART PER UNIT ONE (15:18)
[2021-12-21] MEDS: INSULIN ASPART PER UNIT SC SCH ×3 (15:23→21:02)
[2021-12-21] MEDS: ACETAMINOPHEN 500 MG TAB PO SCH ×2 (16:18→21:22)
[2021-12-21] MEDS: KETOROLAC TROMETHAMINE 15 MG/ML VIAL IV SCH ×2 (16:18→21:22)
[2021-12-21] MEDS ORDERED: INSULIN GLARGINE SOLOSTAR 100 UNITS/ML 3 ML PEN SC SCH (16:30)
[2021-12-21] MEDS: ceFAZolin 2000MG 2,000 MG/15 ML SYR IV SCH (17:40)
[2021-12-21] MEDS: SODIUM CHLORIDE 0.9% 1000ML 1,000 ML IV SCH (17:40)
[2021-12-21] MEDS ORDERED: GABAPENTIN 300 MG CAP PO SCH ×2 (18:00→21:00)
[2021-12-21] MEDS: oxyCODONE HCL IR 5 MG TAB (IMMEDIATE RELEASE) PO PRN (19:39)
[2021-12-21] MEDS: FUROSEMIDE 40 MG TAB PO SCH (19:40)
[2021-12-21] MEDS: ASPIRIN 81 MG ECTAB PO SCH (20:17)
[2021-12-21] MEDS: DOCUSATE SODIUM 100 MG CAP PO SCH (20:18)
[2021-12-21] MEDS ORDERED: hydrALAZINE HCL 20 MG/ML VIAL IV STA (20:56)
[2021-12-21] MEDS ORDERED: LETROZOLE 2.5 MG TAB PO SCH (21:00)
[2021-12-21] MEDS ORDERED: MONTELUKAST SODIUM 10 MG TABLET PO SCH (21:00)
[2021-12-21] MEDS ORDERED: FEXOFENADINE PSEUDOEPHEDRINE PO SCH (21:00)
[2021-12-21] MEDS ORDERED: FLUTICASONE PROPIONATE NA SPR 16 GM BTL NAE SCH (21:00)
[2021-12-21] MEDS ORDERED: SENNA 8.6 MG TAB PO SCH (21:00)
[2021-12-21] MEDS ORDERED: lisinopril 5 MG TAB PO SCH (21:00)
[2021-12-21] MEDS ORDERED: DULoxetine HCL 60 MG CAP PO SCH (21:00)
[2021-12-22] MEDS: ceFAZolin 2000MG 2,000 MG/15 ML SYR IV SCH (02:15)
[2021-12-22] MEDS: SODIUM CHLORIDE 0.9% 1000ML 1,000 ML IV SCH (02:31)
[2021-12-22] MEDS ORDERED: hydrALAZINE HCL 20 MG/ML VIAL IV PRN (05:15)
[2021-12-22] MEDS: KETOROLAC TROMETHAMINE 15 MG/ML VIAL IV SCH ×2 (05:39→10:16)
[2021-12-22] MEDS: ACETAMINOPHEN 500 MG TAB PO SCH (05:39)
--- NOTE | 2021-12-22 07:33 | Orthopedic Progress Note ---
Date of Service December 22, 2021 Assessment & Plan (1) Status post right knee replacement: Overall she is doing very well. She is not any much pain in the right knee. She will be seen by physical therapy today for ambulation and range of motion exercises. Her dressing can be changed after physical therapy. She is on aspirin for DVT prophylaxis. She can be discharged home later today. She will follow-up with orthopedics in 2 weeks. Jamila Ontiveros was seen and examined at bedside this morning. Overall she is doing very well. She is not having much pain in the right knee. She has been up and ambulating to the bathroom. She has no complaints.. Review of Systems All systems reviewed & are unremarkable except as noted in HPI & below. Physical Exam On physical examination the right knee, the dressing is clean and dry. Her leg is out in full extension. She has active dorsiflexion and plantarflexion of the right ankle. Results & Data Results & Data Laboratory Results . Diagnostic Findings Postoperative x-rays of the right knee show the prosthesis to be in anatomic alignment without any evidence of fracture, desiccation, or loosening. PG Care Time/CCT Total # of Minutes Spent Total Time Spent with Patient: Total time spent is greater than 50% in coordination of care (as documented) at patient's floor/unit and/or counseling patient: Coding Level of Care Code 54680 Post Operative Follow-Up Diagnoses Status post right knee replacement Z96.651
--- NOTE | 2021-12-22 07:34 | Discharge Summary ---
Date of Service December 22, 2021 Admission HPI (Per Admitting) Rama is a pleasant 75-year-old female who has been dealing with chronic worsening right knee pain. I did a left knee replacement on her about a year ago and she has done fairly well with that. Unfortunately, she is really struggling with her right knee. It hurts her when she walks long distances or goes up or downstairs. X-rays have shown advanced arthritis. She has elected to proceed with a right total knee arthroplasty. . Admission Exam (Per Admitting) On physical examination the right knee, she has a slight valgus deformity. She is range of motion of 0 to 120 degrees. She has no instability. She has pain of the distal medial femoral condyle and over the medial joint line Principal Diagnosis Same as "Discharge Diagnosis" noted below under Discharge Instructions. Discharge Exam On physical examination the right knee, the dressing is clean and dry. Her leg is out in full extension. She has active dorsiflexion and plantarflexion of the right ankle. Discharge Data Consultations 12/21/21 23:15 Consult Hospitalist Routine Procedures Performed Operation Date: 12/21/21 10:30 Actual Procedures p Right Total Knee Arthroplasty(Right) - Edgard Yang DO Ordered Studies 12/21/21 05:00 US - OR guided needle placemen Routine Hospital Course (1) Status post right knee replacement: On December 21, 2021 Rama arrived at [facility] and underwent a right knee replacement without complication. She had a spinal anesthetic. Postoperatively she was started on aspirin for DVT prophylaxis and transferred to the general orthopedic floors. Her hospital course was uneventful. On postop day #1, her vital signs were stable and her pain was well controlled. She was able to participate well with physical therapy doing ambulation and ran ge of motion exercises. She was then discharged home. She will follow-up with orthopedics in 2 weeks. PG Care Time/CCT Total # of Minutes Spent Total Time Spent with Patient: Total time spent is greater than 50% in coordination of care (as documented) at patient's floor/unit and/or counseling patient: Discharge Plan Discharge Items Patient Disposition: Home - Home Health Services Reason For Visit: Right Knee Degenerative Joint Disease Discharge Diagnosis: Right knee replacement Activity: As commented below Non-emergency contact: Surgeon Call non-emergency contact if: your wound has increased redness and your wound has increased drainage Follow-up/Referrals: Ferny Sr, DO [Primary Care Provider] - Diet: Regular Addtl Attending Provider Instructions: Activity and Therapy Recommendations: * If you are using [facility] then therapy will be provided at your home until they feel you have accomplished all of your goals. * If you are using [facility] then Physical Therapy will be provided until they feel you are ready to start Outpatient Physical Therapy. * If you are not using home therapy then Outpatient Physical Therapy should start about 3-5 days from your day of surgery. Therapy will last about 6-10 weeks * It is important not to put a pillow under your knee when you are relaxing or sleeping. It is just as important to make sure you are getting your knee perfectly straight as it is to regain your knee bend. * You were shown a series of exercises in the hospital. Do these exercises three times each day including the exercises you were shown in physical therapy. * Get up and walk several times each day. For the first four weeks, try not to stand or walk for more than one hour at a time. If you do stand or walk for more than one hour, you will not hurt anything, but your leg will likely swell. * As you feel comfortable, you may change from the walker or crutches to a cane and then to independent walking. Medications: * Narcotic You will likely be sent home from the hospital with a prescription for the narcotic pain medication that worked best throughout your stay. * Aspirin Most patients will be required to take Aspirin 81mg twice a day for 6 weeks after surgery. This is obtained [id number] and a prescription is not necessary. * Other medications may be prescribed for specific circumstances. If you have any questions, please call the office at . * Resume previous home medications unless otherwise instructed TEDs/Elastic Stockings: The white elastic stockings help limit swelling and prevent blood clots from forming in your legs.~ The more you wear them, the more they work. Wear them for six weeks. Dressing Care: The dressing can be changed after physical therapy on postop day #1. Daily dry dressing changes for a few days, especially if the incision is still draining some. If the incision is not draining then you may leave the mayra open to air. If there is a little bit of drainage or if the mayra are getting stuck on your clothing then cover the incision with a dry dressing. The mayra will be removed at your 2 week follow-up appointment. Showering: You may shower 5 days from the day of surgery as long as the incision is no longer draining. You may shower with the mayra exposed. Let soapy water run over the mayra and pat them dry. Do not scrub or soak the incision. Things To Watch For: * Drainage from the incision site that occurs more than one week after your surg nataliia. * Increased redness at the incision site. * Fever above 102 degrees Fahrenheit. * Unusual chest pain or shortness of breath. * Call [facility] at with any of the above problems Follow-Up Visit: Follow-up with Dr. Yang's PA (Edgard Mo) 2-3 weeks after your day of surgery. He will remove your mayra and answer any questions. If you have any additional questions or concerns, Dr Yang is usually in the office at the same time and will be available An appointment was probably scheduled when you signed-up for surgery in the [facility]. If you have any questions call Office Instructions: More detailed instructions as well as Frequently Asked Questions were provided in a folder by our office when you signed-up for surgery. Please review these instructions when you get home. If you have any further questions or concerns, please feel free to call the office at [phone] Pending Studies at Discharge: No Stand-Alone Forms: My [facility] Medications and DC Order Prescriptions: Continued lisinopril 5 mg tablet 5 mg PO QPM RF: 0 potassium chloride 10 mEq capsule, extended release 10 meq PO DAILY RF: 0 folic acid 1 mg tablet 1 mg PO DAILY Qty: 30 RF: 5 mecobalamin (vitamin B12) 1,000 mcg tablet,disintegrating 1,000 mcg sublingual DAILY Qty: 30 RF: 5 carbamazepine 400 mg tablet extended release 12 hr 400 mg PO BID Qty: 60 RF: 5 Ozempic 1 mg/dose (2 mg/1.5 mL) pen injector 1 mg subcut WK RF: 0 oxycodone-acetaminophen [Percocet] 5-325 mg tablet 1 tab PO Q8H PRN (Reason: pain) Qty: 20 RF: 0 gabapentin 300 mg capsule 300 mg PO .COMPLEX Qty: 270 RF: 3 furosemide 40 mg tablet 40 mg PO BID Qty: 60 RF: 5 Lantus Solostar U-100 Insulin 100 unit/mL (3 mL) insulin pen 46 unit SUBCUT QPM RF: 0 atorvastatin 80 mg Tablet 80 mg PO DAILY RF: 0 ascorbic acid (vitamin C) [Vitamin C] 500 mg Tablet 500 mg PO QPM RF: 0 montelukast 10 mg Tablet 10 mg PO HS RF: 0 azelastine-fluticasone 137-50 mcg/spray spray,non-aerosol 2 spray INTRANASAL HS RF: 0 fluticasone propionate [Flonase Allergy Relief] 50 mcg/actuation spray,suspension 1 spray INTRANASAL HS RF: 0 labetalol 200 mg tablet 200 mg PO DIRECTED RF: 0 Jardiance 25 mg tablet 25 mg PO QAM RF: 0 fexofenadine-pseudoephedrine [Teodora-D 24 Hour] 180-240 mg Tablet Extended Release 24 Hr 1 tab PO HS RF: 0 albuterol sulfate [Proventil HFA] 90 mcg/actuation HFA aerosol inhaler 2 puff INHALATION Q6H PRN (Reason: Wheezing) RF: 0 calcium 600 mg Capsule 1,200 mg PO DAILY RF: 0 letrozole 2.5 mg Tablet 2.5 mg PO QPM RF: 0 cholecalciferol (vitamin D3) [Vitamin D3] 25 mcg (1,000 unit) Tablet 25 mcg PO DAILY RF: 0 duloxetine 60 mg capsule,delayed release(DR/EC) 60 mg PO HS RF: 0 Changed aspirin 81 mg tablet,delayed release (DR/EC) 81 mg PO BID 42 Days Qty: 0 RF: 0 Discharge Orders: Discharge Order (Routine); Ordered 12/22/21 Ordered By: Edgard Yang Admission Data Admit Date/Time: 12/21/21 11:46 Attending Provider: Edgard Yang Admit Provider: Edgard Yang Primary Care Provider: Ferny Sr Other Providers: Martínez Ireland
--- NOTE | 2021-12-22 07:36 | Consultation Report ---
DATE OF CONSULTATION: 12/22/2021. CHIEF COMPLAINT: Status post right knee arthroplasty. HISTORY OF PRESENT ILLNESS: This is a 76-year-old female with past medical history significant for type 2 diabetes, chronic kidney disease stage III, hyperlipidemia, sleep apnea on CPAP, history of uncomplicated bronchiectasis, COPD, history of CVA, hypertension, irritable bowel syndrome, trigeminal neuralgia, bilateral open angle glaucoma, history of breast cancer estrogen receptor positive, history of tobacco abuse, history of tremor who is status post right total knee arthroplasty. Blood pressure is somewhat running high. Does have some mild headache. Some blurred vision. No runny nose, no sore throat, no cough. No nausea, no chest pain, no shortness of breath, no abdominal pain, resting comfortably. ALLERGIES: AZITHROMYCIN. PAST MEDICAL HISTORY: As mentioned above. PAST SURGICAL HISTORY: Left total knee arthroplasty, right knee arthroplasty yesterday, right axillary lymph node biopsy, colonoscopy, colonoscopy with biopsy, EGD, surgical decompression of fifth nerve, right temporal biopsy, right partial mastectomy, cataract surgery, cholecystectomy, tonsillectomy and adenoidectomy, right carotid endarterectomy, left carotid endarterectomy, ultrasound guided biopsy of the right breast, low-grade invasive lobular breast carcinoma. MEDICATIONS: The patient is on albuterol 2 puffs inhalation q. 6 hours p.r.n. asthma, vitamin C 500 mg p.o. a.m., aspirin 81 mg p.o. daily, atorvastatin 80 mg p.o. daily, carbamazepine 400 mg p.o. daily, vitamin D 125 mcg p.o. daily, duloxetine 60 mg p.o. bedtime, Teodora 1 tablet p.o. at bedtime, folic acid 1 mg p.o. daily, Lasix 40 mg p.o. b.i.d., gabapentin 300 mg as directed, Lantus 45 units subcutaneous p.m., Jardiance 25 mg p.o. a.m., labetalol 400 mg in a.m. and 200 mg at dinnertime, letrozole 2.5 mg p.o. a.m., lisinopril 5 mg p.o. a.m., vitamin B12 1000 mcg sublingual daily, montelukast 10 mg p.o. at bedtime, Percocet 1 tablet p.o. q. 8 hours p.r.n., potassium chloride 10 mEq p.o. daily, semaglutide subcutaneous weekly. FAMILY HISTORY: Significant for father has allergies, heart disorder, stroke. Mother had VT. SOCIAL HISTORY: , former smoker, who quit in 2011, smoked 1 pack a day for 40 years. No alcohol use. No drug use. REVIEW OF SYSTEMS: As per HPI. Rest of the review of systems is negative. PHYSICAL EXAMINATION: GENERAL: The patient is morbidly obese, not in acute distress. VITAL SIGNS: Temperature 36.6, pulse 60, respiratory rate 16, blood pressure 180/73, oxygen 97% on CPAP. HEENT: Atraumatic. NECK: No JVD. No neck masses seen. CARDIOVASCULAR: S1 and S2 heard. Regular rate and rhythm. No murmur, no gallop. RESPIRATORY SYSTEM: Normal AP diameter. No accessory muscle use. No wheezing, no crackles. ABDOMEN: Soft. Bowel sounds are present. Nontender, no distention. CENTRAL NERVOUS SYSTEM: Cranial nerves II-XII grossly intact, nonfocal. EXTREMITIES: Status post right total knee arthroplasty . Moves extremities. ASSESSMENT AND PLAN: This is a 76-year-old female following a right total knee arthroplasty. 1. Hypertension: Continue home medication of labetalol, Lasix, lisinopril, IV hydralazine p.r.n. Monitor. 2. Diabetes. On ISS and Lantus sliding protocol. We will monitor the blood sugars. 3. History of breast cancer, status post right partial mastectomy and on letrozole. 4. History of COPD. Continue home inhalers. 5. Sleep apnea, CPAP at bedtime. 6. History of CVA. Continue statin. 7. Deep venous thrombosis prophylaxis and disposition. As per orthopedics. Job ID: [id number] [facility]
[2021-12-22 07:44] VITALS: BP 169/68; TEMP 99; O2SAT 95
[2021-12-22] MEDS: ASPIRIN 81 MG ECTAB PO SCH (08:23)
[2021-12-22] MEDS: FUROSEMIDE 40 MG TAB PO SCH (08:23)
[2021-12-22] MEDS: DOCUSATE SODIUM 100 MG CAP PO SCH (08:24)
[2021-12-22] MEDS: oxyCODONE HCL IR 5 MG TAB (IMMEDIATE RELEASE) PO PRN (08:29)
[2021-12-22] MEDS ORDERED: CYANOCOBALAMIN (B-12) 500 MCG TABLET PO SCH (09:00)
[2021-12-22] MEDS ORDERED: POTASSIUM CHLORIDE 10 MEQ TABCR PO SCH (09:00)
[2021-12-22] MEDS ORDERED: LABETALOL HCL 200 MG TAB PO SCH (09:00)
[2021-12-22] MEDS ORDERED: ATORVASTATIN 40 MG TAB PO SCH (09:00)
[2021-12-22] MEDS ORDERED: FOLIC ACID 1 MG TAB PO SCH (09:00)
[2021-12-22] MEDS ORDERED: MULTIVITAMIN TAB PO SCH (09:00)
[2021-12-22] MEDS: INSULIN ASPART PER UNIT SC SCH (09:47)
--- NOTE | 2021-12-22 11:07 | Hospitalist Progress Note ---
Date of Service December 22, 2021 Assessment & Plan Admission and Anticipated Discharge Date Admission Date: December 21, 2021 Results & Data Results & Data ([facility]) Vital Signs (Past 12 Hours) Vital Signs Temp Pulse Resp BP Pulse Ox 12/22/21 07:43 37.2 C 70 16 169/68 H 95 12/22/21 02:23 36.6 C 68 16 180/73 H 97
[2021-12-22 11:38] VITALS: PULSE 75
--- NOTE | 2021-12-22 15:36 | Communication Note ---
Date of Service: December 22, 2021 Patient is seen and examined. Reviewed the chart, blood work. Patient denies any significant pain at surgical site. Also denies any chest pain, shortness of breath, dizziness, nausea, abdominal pain. Plan to be discharged home today. Advised to follow-up with PCP in 1 week.
== END 2021-12-22 13:12 | disposition home health service (06) ==
LOC: ASU 07:57 → PACUINP 07:57 → 3N 17:22

== ENCOUNTER 2022-05-14 15:28 | Inpatient (IN) ==
[2022-05-14] MEDS ORDERED: LIDOCAINE/EPINEPH/TETRACAINE 1 EA SYR EXT ONE (15:44)
--- NOTE | 2022-05-14 16:09 | CT Scan Report ---
HEAD CT NONCONTRAST CT DOSE: 788.63 mGycm HISTORY: fall TECHNIQUE: Multiaxial CT images of the head were performed without the use of intravenous contrast. A utomated exposure control was utilized for this study. A dose lowering technique was utilized adheri ng to the principles of ALARA. Comparison: Head CT 12/27/2019. Findings: There is a displaced right orbital floor fracture with hemorrhage within the right maxillar y sinus. This is better appreciated on the same day facial CT. Prior left suboccipital craniectomy ag ain noted. No calvarial fractures. Right periorbital soft tissue swelling. Mild atrophy and mild micr ovascular ischemic changes again noted. There is an old lacunar infarct within the right caudate head . There is no mass, hematoma, midline shift, or acute infarct. Impression: 1. Displaced right orbital floor fracture with right maxillary sinus hemorrhage. This is better appre ciated on the same day maxillofacial CT. 2. Otherwise, no acute intracranial abnormality. 3. Additional findings as described above. ACT 112: Negative or not required by law. Electronically signed by: Fawad Holm M.D. 05/14/2022 4:06 PM
--- NOTE | 2022-05-14 16:13 | CT Scan Report ---
MAXILLOFACIAL CT CT DOSE: 542.52 mGycm HISTORY: fall, right face lac, nose pain TECHNIQUE: Multiaxial CT images of the maxillofacial region were performed and reformatted in the cor onal plane without the use of contrast. A dose lowering technique was utilized adhering to the princ iplrosa m of SHARATH. COMPARISON: None. FINDINGS: The visualized cervical spine, mandible, zygomatic arches, nasal bones, pterygoid plates, a nd left orbital floor are intact. Right maxillary sinus hemorrhage is noted. There is a comminuted an d depressed right orbital floor fracture. This demonstrates up to 5 mm of depression. Trace extracona l gas adjacent to the orbital floor fracture. Small amount of extraconal fat herniating through the r ight orbital floor defect. There is also trace extraconal hemorrhage inferiorly along the orbital germán or fracture. The globes and retrobulbar fat are intact. There is mild right periorbital soft tissue s welling. IMPRESSION: 1. Depressed and comminuted right orbital floor fracture as described above. 2. There is a small amount of extraconal fat herniating through the right orbital floor defect. Clini caitlin correlation recommended to assess for entrapment. 3. Trace extraconal hemorrhage and gas inferiorly along the orbital floor fracture. ACT 112: Negative or not required by law. Electronically signed by: Fawad Holm M.D. 05/14/2022 4:11 PM
--- NOTE | 2022-05-14 16:17 | CT Scan Report ---
CT SCAN OF THE CERVICAL SPINE CLINICAL HISTORY: Fall. Neck injury. COMPARISON STUDY: CT of the neck dated 12/27/2019. TECHNIQUE: CT scan of the cervical spine is performed from the skull base to the upper thoracic spine . Images are reviewed in the axial, sagittal, and coronal planes. IV contrast was not administered fo r this examination. A dose lowering technique was utilized adhering to the principles of ALARA. CT DOSE: 473.08 mGycm FINDINGS: Skeletal structures: The skeletal structures are osteopenic. There is no evidence of fracture or subl uxation involving the cervical spine. Vertebral body height and alignment are maintained. There is st raightening of the cervical lordosis. Anterior osteophytes are seen throughout. The odontoid process and lateral masses are intact. The atlantoaxial articulation is preserved noting mild productive dege nerative change. The spinous processes appear intact. There is moderate multilevel cervical spondylos is. Uncovertebral facet arthropathy contribute to foraminal narrowing at several levels. Intervertebral discs: There is moderate to severe disc space narrowing at all levels between C4-C5 an d T1-T2. Central canal: Posterior disc osteophyte complexes are seen at all cervical levels between C4-C5 and T1-T2. This likely contributes to multilevel acquired compromise of the central canal. Soft tissues: The prevertebral and paraspinous soft tissues are within normal limits. There is athero sclerotic calcification of the carotid bulbs. Calvarium: There is postoperative change from left occipital craniectomy. The visualized calvarium at the skull base otherwise appears intact. Brain parenchyma: Partially visualized brain parenchyma at the skull base is within normal limits. Sinuses and mastoids: The visualized paranasal sinuses are clear. There is a small left mastoid effus ion. The right mastoid air cells are well pneumatized. Lung apices: Clear as visualized. IMPRESSION: 1. There is no evidence of fracture or subluxation involving the cervical spine. 2. Osteopenia and spondylitic change as both. ACT 112: Negative or not required by law. Electronically signed by: Michael Rajan M.D. 05/14/2022 4:15 PM
[2022-05-14] MEDS ORDERED: oxyCODONE/ACETAMINOPHEN 5mg/325mg TAB PO STA (16:55)
[2022-05-14] MEDS ORDERED: ACETAMINOPHEN 500 MG TAB PO STA (16:55)
--- NOTE | 2022-05-14 17:08 | Emergency Department Note ---
Impression & Plan CHI (closed head injury), Facial laceration, Fracture of inferior orbital wall, Fall, Hypertension, Nausea & vomiting ED Provider Note INFORMANT: Patient ED PROVIDER(S): Benton Brian MD CHIEF COMPLAINT: Fall PLAN: Disposition: Admitted Condition: Good Outpatient prescription management: none Referral: None MEDICAL DECISION MAKING: Patient presented because of an accidental fall. She had a work-up initiated. CT imaging was performed of the head, facial bones, and C-spine. She was found to have an inferior orbital wall fracture. She had no clinical entrapment. The patient also suffered a laceration. Laceration was closed by uQe Rodríguez PA-C. Please see his note. Patient was given her usual dose of Percocet. She was monitored. Patient had issues with nausea and headache. I suspect likely from a mild concussion. She did vomit. She was given Zofran. She was still feeling nauseated. Her blood pressure was high as she was unable to take her evening labetalol dose. An IV was established. She was given a dose of IV labetalol. Given her symptoms, elevated blood pressure and injury I discussed further management and observation in the hospital. Also patient was noted to have a right fifth finger fracture. This was splinted. She has been treated by [facility] orthopedics in the past. Consultation was made with Dr. Jarod Ocasio, [facility] hospitalist service. Patient was evaluated in the ER and admitted for further management Triage Nursing notes reviewed and agree them. Vital Signs: reviewed and remarkable for hypertension Differential diagnosis: Concussion, contusion, fracture, subdural hematoma, epidural hematoma, intraparenchymal hemorrhage, as well as other pathologies. Diagnostics interpreted by me: ECG: none Cardiac Monitoring: none Imaging studies: Head, cervical spine and facial CTs as noted below. Right inferior orbital wall fracture. HPI: The patient is a 76year old female who presents to the Emergency Room with complaints of fall. This started this prior to arrival and is described as accidental. Patient was walking and she felt very tired after she got up very early this morning. She had a lot to do today. She was going up a curb and missed stepped. She fell forward and struck her right face and right hand on the ground. There was a laceration to the right eye. There was bleeding and this was attended to by the [facility] staff. She had a dressing applied.Current pain is rated as 5/10. Pt denies LOC, visual changes, neck pain, chest pain, breathing difficulties, nausea, vomiting, abdominal pain, back pain, extremity pain, numbness, weakness, or other complaints. ROS: See above HPI for pertinent positives & negatives. A total of 10 systems reviewed and were otherwise negative. PAST MEDICAL HISTORY:See Below , hypertension PAST SURGICAL HISTORY:See Below, FAMILY HISTORY:See Below SOCIAL HISTORY:See Below, HOME MEDICATIONS:See Below ALLERGIES:See Below VITALS:See Below PHYSICAL EXAMINATION: GENERAL: Awake, alert, nontoxic-appearing, in no distress HENT: Normocephalic, right facial contusion and laceration noted lateral to the right eye. Oropharynx unremarkable. Minimal tenderness to the nose and right cheek. EYES: Normal conjunctiva. Sclera non-icteric. PERRLA. EOMI. NECK: Inspection normal. Non-tender. Supple. No nuchal rigidity. FROM. No masses. RESPIRATORY: Clear to auscultation. No wheezes. No rales. Normal respiratory effort. CARDIAC: Normal rate. Normal rhythm. No murmurs. No rubs. Extremities warm and well perfused. Pulses equal. No JVD. GI: Soft, non-distended. No tenderness to palpation. No rebound or guarding. No masses. RECTAL: Deferred. MUSCULOSKELETAL: Left upper and both lower extremities are atraumatic. Chest examination reveals no tenderness. The back is symmetrical on inspection without obvious abnormality. There is no CVA tenderness to palpation. No joint edema. LOWER EXTREMITIES: Calves are equal size bilaterally and non-tender. Trace edema. No discoloration. NEURO: Normal sensorium. No sensory or motor deficits noted. Cranial nerves II through XII intact. No drift. Speech normal. SKIN: No rash or jaundice noted. Benton Brian MD Past Med/Surg History Medical History (Updated 05/14/22 @ 23:12 by Benton Brian MD) Anxiety and depression Asthma last rescue inhaler use > 6 months ago Chronic diastolic (congestive) heart failure echo 12/2019 - EF 55-60%, grade I diastolic dysfunction CKD (chronic kidney disease) stage 3, GFR 30-59 ml/min Follows with S PCP and internal medicine Coronary artery calcification Dependent edema on diuretic, chronic per pt without change or worsening Diabetes mellitus, type 2 NIDDM Diabetic neuropathy B/L feet, legs Disc disorder of lumbar region Dyslipidemia Glaucoma Hearing deficit Left ear - no hearing aids History of carotid stenosis s/p R/L carotid endarterectomy (2003) History of CVA (cerebrovascular accident) History of gastric ulcer > 40 yrs ago History of skin cancer HX: breast cancer R partial mastectomy and radiation, no chemo-denies limb restriction Hypertension controlled, stable per pt Polyneuropathy Pulmonary histoplasmosis Remote hx > chronic interstitial thickening and calcified granulomas noted on prior CXRs Sleep apnea BIPAP + 4L O2-compliant Stroke 2003 - intermittent vertigo and occasional right sided weakness Trigeminal neuralgia s/p trigeminal decompression (). On carbamazepine, follows with [facility] neuro (Dr. Jackson) Surgical History Fatty tumor "removed" H/O partial mastectomy R breast History of cataract surgery RT/LEFT History of cholecystectomy History of colonoscopy w/ polypectomy History of esophagogastroduodenoscopy (EGD) History of surgery Trigeminal decompression of 5th nerve History of surgical removal of ganglion cyst History of tonsillectomy and adenoidectomy History of tooth extraction History of total knee replacement LEFT History of total shoulder replacement Right (11/14/17): Elective Glidescope #3 due to Grade 3 View and difficulty visualizing cords, ETT #7.0. Patient re-positioned twice. History of total shoulder replacement Left shoulder replacement (12/25/18): Grade 3 view (unable to read details regarding grade view on anesthesia records), Glidescope #3, ETT 7.5 + PNB at [facility] Hx of dilation and curettage S/P carotid endarterectomy S/P lumpectomy, right breast With right axillary SLN biopsy on 06/06/[address] Goel Status post left knee replacement (~12/2020) Family History Father , age 96 of a stroke Coronary heart disease Stroke Mother , age 79 of an [place] Myocardial infarction Brother Ankylosing spondylitis of site in spine Daughter No problems noted. Son No problems noted. 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 How many Children do You have: 1 Feels Safe at Home: Yes caffeine: Yes (4 cups/week) during the past year weight has: remained stable Assistive Devices: Cane and Walker Allergies Allergies Allergy/AdvReac Type Severity Reaction Status Date / Time clarithromycin Allergy Mild Mouth Verified 05/14/22 18:02 burning Home Meds Home Medications Medication Instructions Recorded Confirmed atorvastatin 80 mg tablet 80 mg PO DAILY 11/12/18 05/14/22 montelukast 10 mg tablet 10 mg PO HS 11/12/18 05/14/22 semaglutide 1 mg/dose (2 mg/1.5 1 mg subcut WK 04/18/20 05/14/22 mL) subcutaneous pen injector (Ozempic) empagliflozin 25 mg tablet 25 mg PO QAM 07/18/20 05/14/22 (Jardiance) fexofenadine-pseudoephedrine ER 1 tab PO HS 07/18/20 05/14/22 180 mg-240 mg tablet,ext.release 24 hr (Teodora-D 24 Hour) azelastine-fluticasone 137 mcg-50 2 spray intranasal HS 07/04/21 05/14/22 mcg/spray nasal spray fluticasone propionate 50 1 spray intranasal HS 07/04/21 05/14/22 mcg/actuation nasal spray,suspension (Flonase Allergy Relief) insulin glargine 100 unit/mL (3 44 unit subcut QPM 07/04/21 05/14/22 mL) subcutaneous pen (Lantus Solostar U-100 Insulin) labetalol 200 mg tablet See Rx Instructions .Route .COMPLEX 07/04/21 05/14/22 cholecalciferol (vitamin D3) 25 25 mcg PO DAILY 11/16/21 05/14/22 mcg (1,000 unit) tablet (Vitamin D3) letrozole 2.5 mg tablet 2.5 mg PO QPM 11/16/21 05/14/22 aspirin 81 mg tablet,delayed 81 mg PO QAM 05/14/22 05/14/22 release brinzolamide 1 %-brimonidine 0.2 % 1 drp ophthalmic (eye) QDL 05/14/22 05/14/22 eye drops,suspension (Simbrinza) calcium carbonate 500 mg calcium 500 mg PO DAILY 05/14/22 05/14/22 (1,250 mg) chewable tablet (Calcium 500) carbamazepine 200 mg tablet 200 mg PO TID 05/14/22 05/14/22 cyanocobalamin (vitamin B-12) 1,000 mcg PO DAILY 05/14/22 05/14/22 1,000 mcg tablet (Vitamin B-12) docusate sodium 100 mg capsule 100 mg PO DAILY 05/14/22 05/14/22 duloxetine 30 mg capsule,delayed 30 mg PO DAILY 05/14/22 05/14/22 release ezetimibe 10 mg tablet (Zetia) 10 mg PO DAILY 05/14/22 05/14/22 lisinopril 40 mg tablet 40 mg PO QAM 05/14/22 05/14/22 sennosides 8.6 mg-docusate sodium 1 - 2 tab-cap PO DAILY PRN HIGH 05/14/22 05/14/22 50 mg tablet (Senna-S) DOSE OF PERCOCET Previous Rx's Medication Instructions Recorded furosemide 40 mg tablet 40 mg PO BID #60 tabs 12/30/19 oxycodone-acetaminophen 5 mg-325 1 tab PO Q8H PRN pain #20 tabs 03/21/ mg tablet (Percocet) gabapentin 300 mg capsule 300 mg PO .COMPLEX #270 caps 07/17/21 folic acid 1 mg tablet 1 mg PO DAILY #30 tabs 11/05/21 Results & Data (ED) Vital Signs Vital Signs - 24 hr 05/14/22 16:46 05/14/22 16:12 05/14/22 16:13 Temperature 36.5 C Temperature Source Oral Pulse Rate 64 62 Pulse Rate from SpO2 Sensor 62 Pulse Rhythm Regular Pulse Strength Normal Respiratory Rate 20 13 Respiratory Effort / Characteristics Non-Labored Spontaneous Respiratory Depth Normal Respiratory Pattern Regular Blood Pressure 200/87 H 221/92 H Blood Pressure Mean 124 135 Blood Pressure Position Lying Pulse Oximetry 97 96 Oxygen Delivery Method Room Air Sepsis Recent Fever Within 48 Hours No Sepsis New/Unexplained Change in Mental Status N/A Sepsis Action Taken by Nursing No Action Required 05/14/22 16:30 05/14/22 16:30 05/14/22 17:00 Temperature Temperature Source Pulse Rate 62 66 Pulse Rate from SpO2 Sensor 62 64 Pulse Rhythm Pulse Strength Respiratory Rate 13 15 Respiratory Effort / Characteristics Respiratory Depth Respiratory Pattern Blood Pressure 200/87 H Blood Pressure Mean 124 Blood Pressure Position Pulse Oximetry 95 96 Oxygen Delivery Method Sepsis Recent Fever Within 48 Hours Sepsis New/Unexplained Change in Mental Status Sepsis Action Taken by Nursing 05/14/22 17:01 05/14/22 17:01 05/14/22 17:30 Temperature Temperature Source Pulse Rate 63 Pulse Rate from SpO2 Sensor 62 Pulse Rhythm Pulse Strength Respiratory Rate 16 Respiratory Effort / Characteristics Respiratory Depth Respiratory Pattern Blood Pressure 220/87 H 225/91 H Blood Pressure Mean 131 135 Blood Pressure Position Pulse Oximetry 93 Oxygen Delivery Method Sepsis Recent Fever Within 48 Hours Sepsis New/Unexplained Change in Mental Status Sepsis Action Taken by Nursing 05/14/22 17:30 05/14/22 18:00 05/14/22 18:00 Temperature Temperature Source Pulse Rate 66 63 Pulse Rate from SpO2 Sensor 66 Pulse Rhythm Pulse Strength Respiratory Rate 19 17 Respiratory Effort / Characteristics Respiratory Depth Respiratory Pattern Blood Pressure 218/90 H Blood Pressure Mean 132 Blood Pressure Position Pulse Oximetry 93 Oxygen Delivery Method Sepsis Recent Fever Within 48 Hours Sepsis New/Unexplained Change in Mental Status Sepsis Action Taken by Nursing 05/14/22 18:30 05/14/22 18:30 05/14/22 19:00 Temperature Temperature Source Pulse Rate 65 Pulse Rate from SpO2 Sensor Pulse Rhythm Pulse Strength Respiratory Rate 18 Respiratory Effort / Characteristics Respiratory Depth Respiratory Pattern Blood Pressure 212/83 H 179/95 H Blood Pressure Mean 126 123 Blood Pressure Position Pulse Oximetry Oxygen Delivery Method Sepsis Recent Fever Within 48 Hours Sepsis New/Unexplained Change in Mental Status Sepsis Action Taken by Nursing 05/14/22 19:00 05/14/22 19:30 05/14/22 19:31 Temperature Temperature Source Pulse Rate 64 68 65 Pulse Rate from SpO2 Sensor Pulse Rhythm Pulse Strength Respiratory Rate 19 16 18 Respiratory Effort / Characteristics Respiratory Depth Respiratory Pattern Blood Pressure Blood Pressure Mean Blood Pressure Position Pulse Oximetry Oxygen Delivery Method Sepsis Recent Fever Within 48 Hours Sepsis New/Unexplained Change in Mental Status Sepsis Action Taken by Nursing 05/14/22 19:31 05/14/22 20:00 05/14/22 20:00 Temperature Temperature Source Pulse Rate 72 Pulse Rate from SpO2 Sensor Pulse Rhythm Pulse Strength Respiratory Rate 18 Respiratory Effort / Characteristics Respiratory Depth Respiratory Pattern Blood Pressure 215/111 H 224/92 H Blood Pressure Mean 145 136 Blood Pressure Position Pulse Oximetry Oxygen Delivery Method Sepsis Recent Fever Within 48 Hours Sepsis New/Unexplained Change in Mental Status Sepsis Action Taken by Nursing 05/14/22 20:30 05/14/22 20:30 05/14/22 21:00 Temperature Temperature Source Pulse Rate 71 Pulse Rate from SpO2 Sensor Pulse Rhythm Pulse Strength Respiratory Rate 12 Respiratory Effort / Characteristics Respiratory Depth Respiratory Pattern Blood Pressure 208/129 H 226/132 H Blood Pressure Mean 155 163 Blood Pressure Position Pulse Oximetry Oxygen Delivery Method Sepsis Recent Fever Within 48 Hours Sepsis New/Unexplained Change in Mental Status Sepsis Action Taken by Nursing 05/14/22 21:00 05/14/22 21:07 05/14/22 21:08 Temperature Temperature Source Pulse Rate 71 77 Pulse Rate from SpO2 Sensor Pulse Rhythm Pulse Strength Respiratory Rate 16 19 Respiratory Effort / Characteristics Respiratory Depth Respiratory Pattern Blood Pressure 248/105 H Blood Pressure Mean 152 Blood Pressure Position Pulse Oximetry Oxygen Delivery Method Sepsis Recent Fever Within 48 Hours Sepsis New/Unexplained Change in Mental Status Sepsis Action Taken by Nursing 05/14/22 21:28 05/14/22 21:28 05/14/22 21:30 Temperature Temperature Source Pulse Rate Pulse Rate from SpO2 Sensor 71 Pulse Rhythm Pulse Strength Respiratory Rate Respiratory Effort / Characteristics Respiratory Depth Respiratory Pattern Blood Pressure 211/86 H 222/93 H Blood Pressure Mean 127 136 Blood Pressure Position Pulse Oximetry 90 Oxygen Delivery Method Sepsis Recent Fever Within 48 Hours Sepsis New/Unexplained Change in Mental Status Sepsis Action Taken by Nursing 05/14/22 21:30 05/14/22 22:00 05/14/22 22:01 Temperature Temperature Source Pulse Rate Pulse Rate from SpO2 Sensor 67 72 Pulse Rhythm Pulse Strength Respiratory Rate Respiratory Effort / Characteristics Respiratory Depth Respiratory Pattern Blood Pressure 216/112 H Blood Pressure Mean 146 Blood Pressure Position Pulse Oximetry 91 94 Oxygen Delivery Method Sepsis Recent Fever Within 48 Hours Sepsis New/Unexplained Change in Mental Status Sepsis Action Taken by Nursing 05/14/22 22:01 05/14/22 22:30 05/14/22 22:31 Temperature Temperature Source Pulse Rate Pulse Rate from SpO2 Sensor 71 74 Pulse Rhythm Pulse Strength Respiratory Rate Respiratory Effort / Characteristics Respiratory Depth Respiratory Pattern Blood Pressure 203/92 H Blood Pressure Mean 129 Blood Pressure Position Pulse Oximetry 95 95 Oxygen Delivery Method Sepsis Recent Fever Within 48 Hours Sepsis New/Unexplained Change in Mental Status Sepsis Action Taken by Nursing Laboratory Data Result diagrams: 05/14/22 21:02 Lab Results 05/14/22 05/14/22 Range/Units 21:02 21:34 WBC 12.19 H (4.8-10.8) K/ul RBC 4.67 (3.93-5.22) M/uL Hgb 14.1 (12.0-16.0) g/dl Hct 43.4 (34.1-44.9) % MCV 92.9 (80.0-100.0) fL MCH 30.2 (25.0-34.0) pg MCHC 32.5 (32.0-36.0) g/dL RDW Std Deviation 45.7 (36.4-46.3) fL RDW Coeff of Mono 13.5 (11.5-14.5) % Plt Count 241 (130-400) K/uL MPV 9.4 (9.4-12.3) fL Immature Gran % (Auto) 0.3 % Neut % (Auto) 80.6 % Lymph % (Auto) 12.9 % [place] % (Auto) 4.8 % Eos % (Auto) 1.0 % Baso % (Auto) 0.4 % Neut # (Auto) 9.82 H (1.4-6.5) K/uL Lymph # (Auto) 1.57 (1.2-3.4) K/uL [place] # (Auto) 0.59 (0.24-0.82) K/uL Eos # (Auto) 0.12 (0-0.50) K/uL Baso # (Auto) 0.05 (0-0.2) K/uL Immature Gran # (Auto) 0.04 H (0.00-0.02) K/uL SARS-CoV-2, RNA, NAAT NEGATIVE (NEGATIVE) Administered Medications Discontinued Medications Acetaminophen (Acetaminophen 500 Mg Tab) 500 mg PO NOW STA Stop: 05/14/22 16:56 Last Admin: 05/14/22 17:43 Dose: 500 mg Documented By: [id number] Amoxicillin (Amoxicillin 250 Mg Home Pack) 1 each PO ONE ONE Stop: 05/14/22 18:58 Last Admin: 05/14/22 21:23 Dose: Not Given Documented By: [id number] Hydralazine HCl (Hydralazine Hcl 20 Mg/Ml Vial) 10 mg IV NOW STA Stop: 05/14/22 21:24 Last Admin: 05/14/22 23:02 Dose: 10 mg Documented By: [id number] Hydromorphone HCl (Hydromorphone Inj 0.5 Mg/0.5 Ml Syr) 0.25 mg IV NOW STA Stop: 05/14/22 21:59 Last Admin: 05/14/22 23:09 Dose: Not Given Documented By: [id number] Hydromorphone HCl (Hydromorphone Inj 0.5 Mg/0.5 Ml Syr) 0.5 mg IV NOW STA Stop: 05/14/22 21:59 Last Admin: 05/14/22 23:03 Dose: 0.5 mg Documented By: [id number] Promethazine HCl (Phenergan) 12.5 mg in 50.5 mls @ 202 mls/hr IV NOW STA Stop: 05/14/22 22:19 Last Admin: 05/14/22 23:03 Dose: 202 mls/hr Documented By: [id number] Labetalol HCl (Labetalol Hcl Iv 5 Mg/Ml 20ml) 10 mg IV NOW STA Stop: 05/14/22 20:47 Last Admin: 05/14/22 21:22 Dose: 10 mg Documented By: [id number] Co-signed By: RONEN Labetalol HCl (Labetalol Hcl 200 Mg Tab) 200 mg PO NOW STA Stop: 05/14/22 21:24 Last Admin: 05/14/22 23:03 Dose: 200 mg Documented By: [id number] Lidocaine (Lidocaine/Epineph/Tetracaine 1 Ea Syr) Confirm Administered Dose 1 each EXT .STK-MED ONE Stop: 05/14/22 15:45 Last Admin: 05/14/22 15:45 Dose: 1 each Documented By: RASHARD Ondansetron HCl (Ondansetron Inj 2 Mg/Ml 2 Ml Vial) 4 mg IV NOW STA Stop: 05/14/22 19:45 Last Admin: 05/14/22 20:01 Dose: Not Given Documented By: [id number] Ondansetron HCl (Ondansetron 4 Mg Od Tab) 4 mg PO NOW STA Stop: 05/14/22 19:53 Last Admin: 05/14/22 19:57 Dose: 4 mg Documented By: [id number] Oxycodone/Acetaminophen (Oxycodone/Acetaminophen 5mg/325mg Tab) 1 tab PO NOW STA Stop: 05/14/22 16:56 Last Admin: 05/14/22 17:43 Dose: 1 tab Documented By: [id number] Imaging Data Radiologist's Impression: Cervical Spine CT 05/14/22 15:35 CT SCAN OF THE CERVICAL SPINE CLINICAL HISTORY: Fall. Neck injury. COMPARISON STUDY: CT of the neck dated 12/27/2019. TECHNIQUE: CT scan of the cervical spine is performed from the skull base to the upper thoracic spine. Images are reviewed in the axial, sagittal, and coronal planes. IV contrast was not administered for this examination. A dose lowering technique was utilized adhering to the principles of ALARA. CT DOSE: 473.08 mGycm FINDINGS: Skeletal structures: The skeletal structures are osteopenic. There is no evidence of fracture or subluxation involving the cervical spine. Vertebral body height and alignment are maintained. There is straightening of the cervical lordosis. Anterior osteophytes are seen throughout. The odontoid process and lateral masses are intact. The atlantoaxial articulation is preserved noting mild productive degenerative change. The spinous processes appear intact. There is moderate multilevel cervical spondylosis. Uncovertebral facet arthropathy contribute to foraminal narrowing at several levels. Intervertebral discs: There is moderate to severe disc space narrowing at all levels between C4-C5 and T1-T2. Central canal: Posterior disc osteophyte complexes are seen at all cervical levels between C4-C5 and T1-T2. This likely contributes to multilevel acquired compromise of the central canal. Soft tissues: The prevertebral and paraspinous soft tissues are within normal limits. There is atherosclerotic calcification of the carotid bulbs. Calvarium: There is postoperative change from left occipital craniectomy. The visualized calvarium at the skull base otherwise appears intact. Brain parenchyma: Partially visualized brain parenchyma at the skull base is within normal limits. Sinuses and mastoids: The visualized paranasal sinuses are clear. There is a small left mastoid effusion. The right mastoid air cells are well pneumatized. Lung apices: Clear as visualized. IMPRESSION: 1. There is no evidence of fracture or subluxation involving the cervical spine. 2. Osteopenia and spondylitic change as both. ACT 112: Negative or not required by law. Electronically signed by: Michael Rajan M.D. 05/14/2022 4:[address] 05/14/22 15:[address] DOSE: 788.63 mGycm HISTORY: fall TECHNIQUE: Multiaxial CT images of the head were performed without the use of intravenous contrast. Automated exposure control was utilized for this study. A dose lowering technique was utilized adhering to the principles of ALARA. Comparison: Head CT 12/27/2019. Findings: There is a displaced right orbital floor fracture with hemorrhage within the right maxillary sinus. This is better appreciated on the same day facial CT. Prior left suboccipital craniectomy again noted. No calvarial f ractures. Right periorbital soft tissue swelling. Mild atrophy and mild microvascular ischemic changes again noted. There is an old lacunar infarct within the right caudate head. There is no mass, hematoma, midline shift, or acute infarct. Impression: 1. Displaced right orbital floor fracture with right maxillary sinus hemorrhage. This is better appreciated on the same day maxillofacial CT. 2. Otherwise, no acute intracranial abnormality. 3. Additional findings as described above. ACT 112: Negative or not required by law. Electronically signed by: Fawad Holm M.D. 05/14/2022 4:[address] 05/14/22 15:[address] DOSE: 542.52 mGycm HISTORY: fall, right face lac, nose pain TECHNIQUE: Multiaxial CT images of the maxillofacial region were performed and reformatted in the coronal plane without the use of contrast. A dose lowering technique was utilized adhering to the principles of ALARA. COMPARISON: None. FINDINGS: The visualized cervical spine, mandible, zygomatic arches, nasal bones, pterygoid plates, and left orbital floor are intact. Right maxillary sinus hemorrhage is noted. There is a comminuted and depressed right orbital floor fracture. This demonstrates up to 5 mm of depression. Trace extraconal gas adjacent to the orbital floor fracture. Small amount of extraconal fat herniating through the right orbital floor defect. There is also trace extraconal hemorrhage inferiorly along the orbital floor fracture. The globes and retrobulbar fat are intact. There is mild right periorbital soft tissue swelling. IMPRESSION: 1. Depressed and comminuted right orbital floor fracture as described above. 2. There is a small amount of extraconal fat herniating through the right orbital floor defect. Clinical correlation recommended to assess for entrapment. 3. Trace extraconal hemorrhage and gas inferiorly along the orbital floor fracture. ACT 112: Negative or not required by law. Electronically signed by: Fawad Holm M.D. 05/14/2022 4:11 PM Hand X-Ray 05/14/22 17:08 RIGHT HAND 3 VIEWS CLINICAL HISTORY: Fall. Right hand injury. FINDINGS: 3 views of the right hand are obtained. No prior studies are available for comparison at the time of dictation. The skeletal structures are osteopenic. There is a minimally displaced oblique fracture through the proximal shaft of the fifth proximal phalanx. No additional fracture is seen. There is degenerative narrowing at the radiocarpal articulation. Mild osteoarthritic change is noted at the first carpometacarpal and metacarpophalangeal joints. Mild osteoarthritic change is also seen throughout the interphalangeal joints, distal greater than proximal. Dorsal soft tissue swelling is noted. IMPRESSION: Fifth proximal phalangeal fracture as above. Electronically signed by: Michael Rajan M.D. 05/14/2022 6:54 PM Discharge Plan Visit Data Chief Complaint: Fall Stated Complaint: FALL, LAC ABOVE R EYE ED Provider: Benton Brian Discharge Problem: CHI (closed head injury), Facial laceration, Fracture of inferior orbital wall, Fall, Hypertension, Nausea & vomiting Patient Disposition: Home - Self-Care Discharge Instructions Activity Restrictions/Additional Instructions: WOUND CARE INSTRUCTIONS: Bacitracin to wounds once daily. Ice compresses for 20 minutes at a time four times daily for 2-3 days. Use a non-stick dressing such as a large band-aid. Change the dressings once a day. Amoxicillin 500 mg: one capsule 3 times a day for 7 days. All antibiotics can cause diarrhea. If this occurs and you feel worse or it does not resolve in 1-2 days follow up with your doctor or return to the Emergency Department as this could be signs of serious underlying problems. Any medication can cause an allergic reaction, stop the pills immediately and return to the ER for rash, hives, breathing difficulties, or swelling. Acetaminophen(Tylenol) may be used for fever or pain. Use 1000mg every six hours as needed. Avoid using more than 3000mg in a 24 hour period. Allow your wounds to air dry several hours per day when you are resting, but it is a good idea to keep them covered while sleeping to prevent irritation and the sheets sticking to the wound. Apply direct pressure for any bleeding. Return to the ER immediately for spreading redness, fevers, pus-like drainage, severe pain, or as needed. Follow-up with Dr. Navarrete of oral maxillofacial surgery. The number is listed below. Call the office tomorrow and let him know you were in the ER and have a facial fracture and laceration. ORTHOPEDIC INSTRUCTIONS: DO NOT drive, drink alcohol, operate machinery, or perform dangerous activities today. You were given medications in the ER that can affect your ability to safely function or operate a vehicle. Oxycodone with acetaminophen/APAP (Percocet) 5/325mg: Take 1-2 pills every four hours for pain. Avoid additional Acetaminophen/Tylenol, alcohol, operating machinery or dangerous equipment, working on ladders or roofs, DRIVING, or situations where being under the influence may be dangerous. It is recommended to use a stool softener such as Colace, 100mg twice daily while taking this medication to avoid constipation. Acetaminophen(Tylenol) may be used for fever or pain. Use 1000mg every six hours as needed. Avoid using more than 3000mg in a 24 hour period. Ice compresses for 20 minutes at a time four times daily for 2-3 days. Rest and elevate your injury. Do not get the splint wet. If your splint feels excessively tight, you have worsening pain, develop numbness or tingling, or your digits appear blue, loosen the trevor wrap. Then reapply the trevor wrap gently without removing the splint. If your symptoms are not quickly relieved return to the ER for re-evaluation. Return to the ER immediately for any numbness, tingling, severe pain, extreme s welling in the extremity or as needed. Call [facility], [phone], the next business day to arrange follow up for your injury. Your blood pressure was noted to be high. It is important to follow-up with your primary doctor. Follow-up with your primary care physician in 2 to 3 days for a recheck of your current condition. Forms Stand Alone Forms: My [facility], Virtual Emergency Department, Important Visit Information Prescriptions Prescriptions: No Action folic acid 1 mg tablet 1 mg PO DAILY Qty: 30 5RF Ozempic 1 mg/dose (2 mg/1.5 mL) pen injector 1 mg subcut WK oxycodone-acetaminophen [Percocet] 5-325 mg tablet 1 tab PO Q8H PRN (Reason: pain) Qty: 20 0RF gabapentin 300 mg capsule 300 mg PO .COMPLEX Qty: 270 3RF Rx Instructions: 1 cap po at 6pm and 2 caps po HS furosemide 40 mg tablet 40 mg PO BID Qty: 60 5RF Rx Instructions: TAKES QAM & LUNCH Lantus Solostar U-100 Insulin 100 unit/mL (3 mL) insulin pen 44 unit SUBCUT QPM atorvastatin 80 mg Tablet 80 mg PO DAILY montelukast 10 mg Tablet 10 mg PO HS azelastine-fluticasone 137-50 mcg/spray spray,non-aerosol 2 spray INTRANASAL HS fluticasone propionate [Flonase Allergy Relief] 50 mcg/actuation spray,suspension 1 spray INTRANASAL HS labetalol 200 mg tablet See Rx Instructions .ROUTE .COMPLEX Label Comments: 200mg at dinner and 100mg in the AM Rx Instructions: 200 mg orally; PER [facility] TAKES 100 MG QAM, THEN 200 MG QPM. Jardiance 25 mg tablet 25 mg PO QAM fexofenadine-pseudoephedrine [Teodora-D 24 Hour] 180-240 mg Tablet Extended Release 24 Hr 1 tab PO HS letrozole 2.5 mg Tablet 2.5 mg PO QPM cholecalciferol (vitamin D3) [Vitamin D3] 25 mcg (1,000 unit) Tablet 25 mcg PO DAILY sennosides-docusate sodium [Senna-S] 8.6-50 mg Tablet 1 - 2 tab-cap PO DAILY PRN (Reason: HIGH DOSE OF PERCOCET) cyanocobalamin (vitamin B-12) [Vitamin B-12] 1,000 mcg Tablet 1,000 mcg PO DAILY carbamazepine 200 mg tablet 200 mg PO TID Rx Instructions: TAKE WITH FOOD docusate sodium 100 mg Capsule 100 mg PO DAILY calcium carbonate [Calcium 500] 500 mg calcium (1,250 mg) Tablet,Chewable 500 mg PO DAILY lisinopril 40 mg tablet 40 mg PO QAM ezetimibe [Zetia] 10 mg Tablet 10 mg PO DAILY Simbrinza 1-0.2 % Drops,Suspension 1 drp OPHTHALMIC (EYE) QDL aspirin 81 mg tablet,delayed release (DR/EC) 81 mg PO QAM duloxetine 30 mg capsule,delayed release(DR/EC) 30 mg PO DAILY Referrals Referrals: Ferny Sr, [Primary Care Provider] -
--- NOTE | 2022-05-14 18:52 | Emergency Department Note ---
ED Visit Note Patient was seen and evaluated by Dr. Brian. I was asked to repair the patient's right sided facial laceration. This is approximately 5 cm in length and is lateral to the right periorbital region. It does not involve tissue overlying the globe. Risks and benefits of performing primary wound closure versus no repair were discussed with the patient who verbalizes understanding. Verbal consent was obtained prior to performing the procedure. Let gel was already used to anesthetize the right-sided facial laceration. The wound was cleansed and prepped in the typical sterile fashion utilizing normal saline and Betadine. The wound was sterilely draped. Once proper anesthetization was established, the wound was further examined and demonstrated gaping laceration without evidence of deep structure injury or foreign body. The wound was copiously irrigated with normal saline and Betadine. The wound was closed using 14 simple, 6-0 nylon sutures with the wound edges being well approximated followed by one area requiring 1 simple, 5-0 nylon suture. Patient tolerated the procedure well. No complications were met. Minor bleeding noted at 1 region therefore small dressing applied temporarily. This was then removed and no further bleeding noted. The wound was cleansed and dressed with a Bacitracin dressing. Please refer to further documentation regarding her stay. .
--- NOTE | 2022-05-14 18:55 | XRay Report ---
RIGHT HAND 3 VIEWS CLINICAL HISTORY: Fall. Right hand injury. FINDINGS: 3 views of the right hand are obtained. No prior studies are available for comparison at th e time of dictation. The skeletal structures are osteopenic. There is a minimally displaced oblique f racture through the proximal shaft of the fifth proximal phalanx. No additional fracture is seen. The re is degenerative narrowing at the radiocarpal articulation. Mild osteoarthritic change is noted at the first carpometacarpal and metacarpophalangeal joints. Mild osteoarthritic change is also seen thr oughout the interphalangeal joints, distal greater than proximal. Dorsal soft tissue swelling is note d. IMPRESSION: Fifth proximal phalangeal fracture as above. Electronically signed by: Michael Rajna M.D. 05/14/2022 6:54 PM
[2022-05-14] MEDS ORDERED: AMOXICILLIN 250 MG PO ONE (18:57)
[2022-05-14] MEDS ORDERED: ONDANSETRON INJ 2 MG/ML 2 ML VIAL IV STA (19:44)
[2022-05-14] MEDS ORDERED: ONDANSETRON 4 MG OD TAB PO STA (19:52)
[2022-05-14] MEDS ORDERED: LABETALOL HCL IV 5 MG/ML 20ML IV STA (20:46)
[2022-05-14 21:09] LABS: Basophils # (auto) 0.05 K/uL (0-0.2); Basophils % (auto) 0.4 %; Eosinophils # (auto) 0.12 K/uL (0-0.50); Hematocrit (blood only) 43.4 % (34.1-44.9); Hemoglobin 14.1 g/dl (12.0-16.0); Immature Granulocytes # (auto) 0.04 K/uL (0.00-0.02); Immature Granulocytes % (auto) 0.3 %; Lymphocytes # (auto) 1.57 K/uL (1.2-3.4); Lymphocytes % (auto) 12.9 %; Mean Corpuscular Hemoglobin 30.2 pg (25.0-34.0); Mean Corpuscular Hgb Conc 32.5 g/dL (32.0-36.0); Mean Corpuscular Volume 92.9 fL (80.0-100.0); Mean Platelet Volume 9.4 fL (9.4-12.3); Monocytes # (auto) 0.59 K/uL (0.24-0.82); Monocytes % (auto) 4.8 %; Neutrophils # (auto) 9.82 K/uL (1.4-6.5); Neutrophils % (auto) 80.6 %; Platelet Count 241 K/uL (130-400); RDW Coefficient of Variation 13.5 % (11.5-14.5); RDW Standard Deviation 45.7 fL (36.4-46.3); Red Blood Count 4.67 M/uL (3.93-5.22); White Blood Count 12.19 K/ul (4.8-10.8)
[2022-05-14] MEDS ORDERED: hydrALAZINE HCL 20 MG/ML VIAL IV STA (21:23)
[2022-05-14] MEDS ORDERED: LABETALOL HCL 200 MG TAB PO STA (21:23)
--- NOTE | 2022-05-14 21:32 | History & Physical Report ---
Date of Service May 14, 2022 Assessment & Plan (1) Fall: (2) CHI (closed head injury): (3) Facial laceration: (4) Fracture of inferior orbital wall: (5) Hypertensive urgency: (6) Anxiety and depression: (7) Chronic diastolic (congestive) heart failure: (8) CKD (chronic kidney disease) stage 3, GFR 30-59 ml/min: (9) Sleep apnea: Plan This is a 76yo F with a PMH of type 2 diabetes, hypertension, history of CVA, trigeminal neuralgia, history of tobacco use, sleep apnea with on BiPAP and oxygen, COPD and other medical problems listed below who presents after a fall at home. Please see Dr. Ocasio's assessment and plan for further details. History of Present Illness Chief Complaint: fall, facial laceration Primary Care Provider: Ferny Sr, DO This is a 76yo F with a PMH of type 2 diabetes, hypertension, history of CVA, trigeminal neuralgia, history of tobacco use, sleep apnea with on BiPAP and oxygen, COPD and other medical problems listed below who presents after a fall at home. Patient reports she was in a hurry walking earlier today and was going up a curb when her leg gave our and missed a step, falling forward and striking her right face and hand on the ground. Had a laceration to the right eye and was seen in [facility] clinic for this but then reported to ED for further laceration repair. No loss of consciousness, visual changes, neck pain, chest pain, shortness of breath, nausea, vomiting, abdominal pain, dysuria, diarrhea constipation. In ED, patient became nauseated and had one episode of vomiting. Still feeling nauseated and with facial pain and headache. Will be admitted for further treatment of elevated blood pressure and pain control. Received 10 mg IV labetalol as well as missed evening oral antihypertensives. Hydralazine and additional pain medication ordered at this time. Repeat blood pressure 220/90. Allergies Allergy/AdvReac Type Severity Reaction Status Date / Time clarithromycin Allergy Mild Mouth Verified 05/14/22 18:02 burning Home Medications Medication Instructions Recorded Confirmed Type atorvastatin 80 mg tablet 80 mg PO DAILY 11/12/18 05/14/22 History montelukast 10 mg tablet 10 mg PO HS 11/12/18 05/14/22 History furosemide 40 mg tablet 40 mg PO BID #60 tabs 12/30/19 05/14/22 Rx semaglutide 1 mg/dose (2 mg/1.5 1 mg subcut WK 04/18/20 05/14/22 History mL) subcutaneous pen injector (Ozempic) empagliflozin 25 mg tablet 25 mg PO QAM 07/18/20 05/14/22 History (Jardiance) fexofenadine-pseudoephedrine ER 1 tab PO HS 07/18/20 05/14/22 History 180 mg-240 mg tablet,ext.release 24 hr (Teodora-D 24 Hour) oxycodone-acetaminophen 5 mg-325 1 tab PO Q8H PRN pain #20 tabs 03/21/21 05/14/22 Rx mg tablet (Percocet) azelastine-fluticasone 137 mcg-50 2 spray intranasal HS 07/04/21 05/14/22 History mcg/spray nasal spray fluticasone propionate 50 1 spray intranasal HS 07/04/21 05/14/22 History mcg/actuation nasal spray,suspension (Flonase Allergy Relief) insulin glargine 100 unit/mL (3 44 unit subcut QPM 07/04/21 05/14/22 History mL) subcutaneous pen (Lantus Solostar U-100 Insulin) labetalol 200 mg tablet See Rx Instructions .Route .COMPLEX 07/04/21 05/14/22 History gabapentin 300 mg capsule 300 mg PO .COMPLEX #270 caps 07/17/21 05/14/22 Rx folic acid 1 mg tablet 1 mg PO DAILY #30 tabs 11/05/21 05/14/22 Rx cholecalciferol (vitamin D3) 25 25 mcg PO DAILY 11/16/21 05/14/22 History mcg (1,000 unit) tablet (Vitamin D3) letrozole 2.5 mg tablet 2.5 mg PO QPM 11/16/21 05/14/22 History aspirin 81 mg tablet,delayed 81 mg PO QAM 05/14/22 05/14/22 History release brinzolamide 1 %-brimonidine 0.2 % 1 drp ophthalmic (eye) QDL 05/14/22 05/14/22 History eye drops,suspension (Simbrinza) calcium carbonate 500 mg calcium 500 mg PO DAILY 05/14/22 05/14/22 History (1,250 mg) chewable tablet (Calcium 500) carbamazepine 200 mg tablet 200 mg PO TID 05/14/22 05/14/22 History cyanocobalamin (vitamin B-12) 1,000 mcg PO DAILY 05/14/22 05/14/22 History 1,000 mcg tablet (Vitamin B-12) docusate sodium 100 mg capsule 100 mg PO DAILY 05/14/22 05/14/22 History duloxetine 30 mg capsule,delayed 30 mg PO DAILY 05/14/22 05/14/22 History release ezetimibe 10 mg tablet (Zetia) 10 mg PO DAILY 05/14/22 05/14/22 History lisinopril 40 mg tablet 40 mg PO QAM 05/14/22 05/14/22 History sennosides 8.6 mg-docusate sodium 1 - 2 tab-cap PO DAILY PRN HIGH 05/14/22 05/14/22 History 50 mg tablet (Senna-S) DOSE OF PERCOCET Past Med/Surg History Medical History (Updated 05/14/22 @ 23:12 by Benton Brian MD) Anxiety and depression Asthma last rescue inhaler use > 6 months ago Chronic diastolic (congestive) heart failure echo 12/2019 - EF 55-60%, grade I diastolic dysfunction CKD (chronic kidney disease) stage 3, GFR 30-59 ml/min Follows with S PCP and internal medicine Coronary artery calcification Dependent edema on diuretic, chronic per pt without change or worsening Diabetes mellitus, type 2 NIDDM Diabetic neuropathy B/L feet, legs Disc disorder of lumbar region Dyslipidemia Glaucoma Hearing deficit Left ear - no hearing aids History of carotid stenosis s/p R/L carotid endarterectomy (2003) History of CVA (cerebrovascular accident) History of gastric ulcer > 40 yrs ago History of skin cancer HX: breast cancer R partial mastectomy and radiation, no chemo-denies limb restriction Hypertension controlled, stable per pt Polyneuropathy Pulmonary histoplasmosis Remote hx > chronic interstitial thickening and calcified granulomas noted on prior CXRs Sleep apnea BIPAP + 4L O2-compliant Stroke 2003 - intermittent vertigo and occasional right sided weakness Trigeminal neuralgia s/p trigeminal decompression (). On carbamazepine, follows with [facility] neuro (Dr. Jackson) Surgical History Fatty tumor "removed" H/O partial mastectomy R breast History of cataract surgery RT/LEFT History of cholecystectomy History of colonoscopy w/ polypectomy History of esophagogastroduodenoscopy (EGD) History of surgery Trigeminal decompression of 5th nerve 1990s History of surgical removal of ganglion cyst History of tonsillectomy and adenoidectomy History of tooth extraction History of total knee replacement LEFT History of total shoulder replacement Right (11/14/17): Elective Glidescope #3 due to Grade 3 View and difficulty visualizing cords, ETT #7.0. Patient re-positioned twice. History of total shoulder replacement Left shoulder replacement (12/25/18): Grade 3 view (unable to read details regarding grade view on anesthesia records), Glidescope #3, ETT 7.5 + PNB at [facility] Hx of dilation and curettage S/P carotid endarterectomy S/P lumpectomy, right breast With right axillary SLN biopsy on 06/06/[address] Goel Status post left knee replacement (~12/2020) Family History Father , age 96 of a stroke Coronary heart disease Stroke Mother , age 79 of an SC Myocardial infarction Brother Ankylosing spondylitis of site in spine Daughter No problems noted. Son No problems noted. 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 How many Children do You have: 1 Feels Safe at Home: Yes Safety Concerns: Feels Safe At This Time caffeine: Yes (4 cups/week) during the past year weight has: remained stable Assistive Devices: BiPap, Cane, Glasses and Walker Review of Systems Review of Systems: At least ten systems reviewed and negative except as noted in the HPI. Physical Exam Physical Exam: General Appearance: vitals as above, NAD, sitting up in bed, pleasant, conversing easily Head: normocephalic, + R facial contusion and laceration lateral to R eye with significant edema and ecchymosis Eyes: PERRL ENT: external ear and nose normal, oropharynx normal Neck: normal visual inspection, trachea midline, no thyromegaly Respiratory: normal respiratory effort, lungs clear to auscultation, no wheeze, rales, rhonchi. No accessory muscle use Cardiovascular: regular rate, rhythm, no murmur, normal peripheral pulses, no BLE edema. Vessels: no JVD Chest: normal inspection of chest Abdomen/GI: normal bowel sounds, soft, nontender, no hepatosplenomegaly Extremities/Musculoskeletal: no cyanosis or clubbing, extremities motor strength 5/5 Neurologic: PERRL, EOMI, accommodation nl, no face palsy, no dysarthria, CN's II-XI intact bilaterally and moves all extremities Psychiatric: A+Ox3, euthymic affect Skin: no rashes, normal color, warm/dry Results & Data Results & Data ([facility]) Vital Signs (Past 12 Hours) Vital Signs Temp Pulse Resp BP Pulse Ox O2 Del Method 05/14/22 21:08 248/105 H 05/14/22 21:07 77 19 05/14/22 21:00 71 16 05/14/22 21:00 226/132 H 05/14/22 20:30 71 12 05/14/22 20:30 208/129 H 05/14/22 20:00 72 18 05/14/22 20:00 224/92 H 05/14/22 19:31 215/111 H 05/14/22 19:31 65 18 05/14/22 19:30 68 16 05/14/22 19:00 64 19 05/14/22 19:00 179/95 H 05/14/22 18:30 65 18 05/14/22 18:30 212/83 H 05/14/22 18:00 63 17 05/14/22 18:00 218/90 H 05/14/22 17:30 66 19 93 05/14/22 17:30 225/91 H 05/14/22 17:01 220/87 H 05/14/22 17:01 63 16 93 05/14/22 17:00 66 15 96 05/14/22 16:30 62 13 95 05/14/22 16:30 200/87 H 05/14/22 16:13 62 13 96 05/14/22 16:12 221/92 H 05/14/22 16:46 36.5 C 64 20 200/87 H 97 Room Air Laboratory Results Short CBC 05/14/22 Range/Units 21:02 WBC 12.19 H (4.8-10.8) K/ul Hgb 14.1 (12.0-16.0) g/dl Hct 43.4 (34.1-44.9) % Plt Count 241 (130-400) K/uL Diagnostic Findings Cervical Spine CT 05/14/22 15:35 CT SCAN OF THE CERVICAL SPINE CLINICAL HISTORY: Fall. Neck injury. COMPARISON STUDY: CT of the neck dated 12/27/2019. TECHNIQUE: CT scan of the cervical spine is performed from the skull base to the upper thoracic spine. Images are reviewed in the axial, sagittal, and coronal planes. IV contrast was not administered for this examination. A dose lowering technique was utilized adhering to the principles of ALARA. CT DOSE: 473.08 mGycm FINDINGS: Skeletal structures: The skeletal structures are osteopenic. There is no evidence of fracture or subluxation involving the cervical spine. Vertebral body height and alignment are maintained. There is straightening of the cervical lordosis. Anterior osteophytes are seen throughout. The odontoid process and lateral masses are intact. The atlantoaxial articulation is preserved noting mild productive degenerative change. The spinous processes appear intact. There is moderate multilevel cervical spondylosis. Uncovertebral facet arthropathy contribute to foraminal narrowing at several levels. Intervertebral discs: There is moderate to severe disc space narrowing at all levels between C4-C5 and T1-T2. Central canal: Posterior disc osteophyte complexes are seen at all cervical levels between C4-C5 and T1-T2. This likely contributes to multilevel acquired compromise of the central canal. Soft tissues: The prevertebral and paraspinous soft tissues are within normal limits. There is atherosclerotic calcification of the carotid bulbs. Calvarium: There is postoperative change from left occipital craniectomy. The visualized calvarium at the skull base otherwise appears intact. Brain parenchyma: Partially visualized brain parenchyma at the skull base is within normal limits. Sinuses and mastoids: The visualized paranasal sinuses are clear. There is a small left mastoid effusion. The right mastoid air cells are well pneumatized. Lung apices: Clear as visualized. IMPRESSION: 1. There is no evidence of fracture or subluxation involving the cervical spine. 2. Osteopenia and spondylitic change as both. ACT 112: Negative or not required by law. Electronically signed by: Michael Rajan M.D. 05/14/2022 4:[address] 05/14/22 15:[address] DOSE: 788.63 mGycm HISTORY: fall TECHNIQUE: Multiaxial CT images of the head were performed without the use of intravenous contrast. Automated exposure control was utilized for this study. A dose lowering technique was utilized adhering to the principles of ALARA. Comparison: Head CT 12/27/2019. Findings: There is a displaced right orbital floor fracture with hemorrhage within the right maxillary sinus. This is better appreciated on the same day facial CT. Prior left suboccipital craniectomy again noted. No calvarial fractures. Right periorbital soft tissue swelling. Mild atrophy and mild microvascular ischemic changes again noted. There is an old lacunar infarct within the right caudate head. There is no mass, hematoma, midline shift, or acute infarct. Impression: 1. Displaced right orbital floor fracture with right maxillary sinus hemorrhage. This is better appreciated on the same day maxillofacial CT. 2. Otherwise, no acute intracranial abnormality. 3. Additional findings as described above. ACT 112: Negative or not required by law. Electronically signed by: Fawad Holm M.D. 05/14/2022 4:[address] 05/14/22 15:[address] DOSE: 542.52 mGycm HISTORY: fall, right face lac, nose pain TECHNIQUE: Multiaxial CT images of the maxillofacial region were performed and reformatted in the coronal plane without the use of contrast. A dose lowering technique was utilized adhering to the principles of ALARA. COMPARISON: None. FINDINGS: The visualized cervical spine, mandible, zygomatic arches, nasal bones, pterygoid plates, and left orbital floor are intact. Right maxillary sinus hemorrhage is noted. There is a comminuted and depressed right orbital floor fracture. This demonstrates up to 5 mm of depression. Trace extraconal gas adjacent to the orbital floor fracture. Small amount of extraconal fat herniating through the right orbital floor defect. There is also trace extraconal hemorrhage inferiorly along the orbital floor fracture. The globes and retrobulbar fat are intact. There is mild right periorbital soft tissue swelling. IMPRESSION: 1. Depressed and comminuted right orbital floor fracture as described above. 2. There is a small amount of extraconal fat herniating through the right orbital floor defect. Clinical correlation recommended to assess for entrapment. 3. Trace extraconal hemorrhage and gas inferiorly along the orbital floor fracture. ACT 112: Negative or not required by law. Electronically signed by: Fawad Holm M.D. 05/14/2022 4:11 PM Hand X-Ray 05/14/22 17:08 RIGHT HAND 3 VIEWS CLINICAL HISTORY: Fall. Right hand injury. FINDINGS: 3 views of the right hand are obtained. No prior studies are available for comparison at the time of dictation. The skeletal structures are osteopenic. There is a minimally displaced oblique fracture through the proximal shaft of the fifth proximal phalanx. No additional fracture is seen. There is d egenerative narrowing at the radiocarpal articulation. Mild osteoarthritic change is noted at the first carpometacarpal and metacarpophalangeal joints. Mild osteoarthritic change is also seen throughout the interphalangeal joints, distal greater than proximal. Dorsal soft tissue swelling is noted. IMPRESSION: Fifth proximal phalangeal fracture as above. Electronically signed by: Michael Rajan M.D. 05/14/2022 6:54 PM Supervising Physician Co-Signing Physician Notes IM ATTENDING : Patient seen and examined. History obtained from patient and records. Preceding documentation by Shelli Pina PA-C reviewed. In addition : Chest x-ray as per my dictation cardiomegaly, atelectasis EKG as per my interpretation : Rate 80, NSR, normal axis, inferior infarct FINAL ASSESSMENT AND PLAN as follows : Hypertensive crisis Cerebral concussion, presenting as headache, nausea, vomiting symptoms post head trauma, no LOC Traumatic right orbital fracture, fat herniation through orbital defect signifying possible EOM entrapment, patient currently without visual symptoms Traumatic right phalangeal fracture hyperlipidemia on statin Rx history of CVA/PVD COPD, no acute lung issues CHAZ on BiPAP Right breast cancer status post surgery/radiation on Letrozole, in remission DM2, insulin requiring well-controlled as of recent hemoglobin A1c of 5.7 last March 2022 hx trigeminal neuralgia on carbamazepine Past tobacco abuse PCU Titrate home BP meds Analgesia GCS neurochecks Appropriate to hold home aspirin for now given orbital fracture hematoma Local measures for right orbital hematoma Maxillofacial surgery consultation in a.m. Re: Right orbital fracture with possible signs of entrapment on CT imaging N.p.o. for now in anticipation of procedural intervention. Orthopedics consult Re: Traumatic right phalangeal fracture PT OT eval Basal insulin adjusted for n.p.o. status, ISS BG goal 1 10-1 40 DVT prophylaxis. SCDs Re: Orbital hematoma DNR Text document was generated using [employer] voice recognition software. It may contain grammatical or spelling errors. Kindly contact undersigned for clarification of any documentation item in question.
[2022-05-14] MEDS ORDERED: PROMETHAZINE HCL 12.5 MG in SODIUM CHLORIDE 0.9% 50 ML IV STA (21:57)
[2022-05-14] MEDS ORDERED: HYDROmorphone INJ 0.5 MG/0.5 ML SYR IV STA ×2 (21:58)
[2022-05-14] MEDS ORDERED: PROMETHAZINE 12.5 MG/50.5 ML BAG IV STA (22:05)
[2022-05-14] MEDS ORDERED: PROMETHAZINE HCL 12.5 MG in SODIUM CHLORIDE 0.9% 50 ML IV PRN (22:40)
[2022-05-14] MEDS ORDERED: HYDROmorphone INJ 0.5 MG/0.5 ML SYR IV PRN (22:40)
[2022-05-14] MEDS ORDERED: GLUCAGON FOR INJ 1 MG VIAL SQ PRN (23:19)
[2022-05-14] MEDS ORDERED: GLUCOSE 40% GEL 15 GM TUBE PO PRN (23:19)
[2022-05-14] MEDS ORDERED: DEXTROSE 50% 50 ML SYRINGE IV PRN (23:19)
[2022-05-14] MEDS ORDERED: LABETALOL HCL 200 MG TAB PO SCH (23:19)
[2022-05-14] MEDS ORDERED: GLUCOSE 10 TAB/TUBE PO PRN (23:19)
[2022-05-14] MEDS ORDERED: CARBOHYDRATES FOR HYPOGLYCEMIA PO PRN (23:19)
[2022-05-14 23:27] LABS: Partial Thromboplastin Time 27.3 Seconds (21.0-31.0)
[2022-05-14 23:38] LABS: Anion Gap 6 (3-11); BUN Creatinine Ratio 15.3 (10-20); Blood Urea Nitrogen 11 mg/dl (6-23); Calcium 9.4 mg/dl (8.5-10.1); Carbon Dioxide 37 mmol/L (21-32); Chloride 98 mmol/L (98-107); Est GFR (African American) 94.3 ml/min; Est GFR (Non-African American) 81.3 ml/min; Glucose 124 mg/dl (70-99(Fasting)); Magnesium 2.2 mg/dl (1.7-2.4); Potassium 3.8 mmol/L (3.5-5.1); Sodium 141 mmol/L (136-145)
[2022-05-14] MEDS ORDERED: LACTATED RINGER'S 1,000 ML IV ONE (23:45)
[2022-05-15] MEDS: LETROZOLE 2.5 MG TAB PO SCH ×2 (00:27→21:36)
[2022-05-15] MEDS: GABAPENTIN 600 MG TAB PO SCH ×2 (00:28→21:36)
[2022-05-15] MEDS: FLUTICASONE PROPIONATE NA SPR 16 GM BTL SCH ×2 (00:30)
[2022-05-15] MEDS: ACETAMINOPHEN 325 MG TAB PO PRN (00:38)
[2022-05-15] MEDS: INSULIN ASPART PER UNIT SC SCH ×5 (00:39→21:28)
[2022-05-15] MEDS: LANTUS PER UNIT CHARGE SQ SCH ×3 (00:40→21:41)
[2022-05-15] MEDS ORDERED: METOCLOPRAMIDE HCL INJ 5 MG/ML 2 ML VIAL IV PRN (03:13)
[2022-05-15] MEDS ORDERED: METOCLOPRAMIDE HCL INJ 5 MG/ML 2 ML VIAL ONE (03:19)
[2022-05-15] MEDS: carBAMazepine 200 MG TABLET PO SCH ×4 (04:01→21:36)
[2022-05-15] MEDS: lisinopril 40 MG TAB PO SCH (04:01)
[2022-05-15 05:39] LABS: Basophils # (auto) 0.04 K/uL (0-0.2); Basophils % (auto) 0.3 %; Eosinophils # (auto) 0.04 K/uL (0-0.50); Eosinophils % (auto) 0.3 %; Hematocrit (blood only) 40.7 % (34.1-44.9); Hemoglobin 13.1 g/dl (12.0-16.0); Immature Granulocytes # (auto) 0.04 K/uL (0.00-0.02); Immature Granulocytes % (auto) 0.3 %; Lymphocytes # (auto) 1.45 K/uL (1.2-3.4); Lymphocytes % (auto) 12.2 %; Mean Corpuscular Hemoglobin 30.4 pg (25.0-34.0); Mean Corpuscular Hgb Conc 32.2 g/dL (32.0-36.0); Mean Corpuscular Volume 94.4 fL (80.0-100.0); Mean Platelet Volume 9.3 fL (9.4-12.3); Monocytes # (auto) 0.66 K/uL (0.24-0.82); Monocytes % (auto) 5.5 %; Neutrophils # (auto) 9.69 K/uL (1.4-6.5); Neutrophils % (auto) 81.4 %; Platelet Count 243 K/uL (130-400); RDW Coefficient of Variation 13.3 % (11.5-14.5); RDW Standard Deviation 46.3 fL (36.4-46.3); Red Blood Count 4.31 M/uL (3.93-5.22); White Blood Count 11.92 K/ul (4.8-10.8)
[2022-05-15 06:13] LABS: BUN Creatinine Ratio 14.9 (10-20); Calcium 9.3 mg/dl (8.5-10.1); Creatinine Clr Calc Pharmacy 71.6 ml/min; Est GFR (African American) 91.2 ml/min; Est GFR (Non-African American) 78.7 ml/min
--- NOTE | 2022-05-15 07:19 | Orthopedic Consultation ---
Date of Service May 15, 2022 Assessment & Plan (1) Phalanx, proximal fracture of finger: Fortunately this can be treated nonoperatively in a splint. She will likely be in the splint for about 4 to 6 weeks. She is in the appropriate splint now. She can put some weight on it with a walker if she needs to. She should follow- up with orthopedics in 2 weeks for repeat x-rays. Full orthopedic discharge instructions were placed in the discharge summary. If you have any further questions please feel free to [place] text me or contact me at [phone] History of Present Illness Reason for Consultation: Right phalanx fracture. Requesting Physician: . Attending Physician: Gabe Rivero MD Rama is a pleasant 76-year-old female who is well-known to me. She had a fall yesterday while in the parking lot of the doctor's office. She mostly struck the right side of her head. She was also complaining of some right hand pain. X-rays showed a relatively nondisplaced fracture at the base of the proximal phalanx of the right small finger. She was placed in aluminum splint. Orthopedics was consulted to evaluate and treat.. Allergies Allergy/AdvReac Type Severity Reaction Status Date / Time clarithromycin Allergy Mild Mouth Verified 05/14/22 18:02 burning Home Medications Medication Instructions Recorded Confirmed Type atorvastatin 80 mg tablet 80 mg PO DAILY 11/12/18 05/14/22 History montelukast 10 mg tablet 10 mg PO HS 11/12/18 05/14/22 History furosemide 40 mg tablet 40 mg PO BID #60 tabs 12/30/19 05/14/22 Rx semaglutide 1 mg/dose (2 mg/1.5 1 mg subcut WK 04/18/20 05/14/22 History mL) subcutaneous pen injector (Ozempic) empagliflozin 25 mg tablet 25 mg PO QAM 07/18/20 05/14/22 History (Jardiance) fexofenadine-pseudoephedrine ER 1 tab PO HS 07/18/20 05/14/22 History 180 mg-240 mg tablet,ext.release 24 hr (Teodora-D 24 Hour) oxycodone-acetaminophen 5 mg-325 1 tab PO Q8H PRN pain #20 tabs 03/21/21 2 Rx mg tablet (Percocet) azelastine-fluticasone 137 mcg-50 2 spray intranasal HS 07/04/21 05/14/22 History mcg/spray nasal spray fluticasone propionate 50 1 spray intranasal HS 07/04/21 05/14/22 History mcg/actuation nasal spray,suspension (Flonase Allergy Relief) insulin glargine 100 unit/mL (3 44 unit subcut QPM 07/04/21 05/14/22 History mL) subcutaneous pen (Lantus Solostar U-100 Insulin) labetalol 200 mg tablet See Rx Instructions .Route .COMPLEX 07/04/21 05/14/22 History gabapentin 300 mg capsule 300 mg PO .COMPLEX #270 caps 07/17/21 05/14/22 Rx folic acid 1 mg tablet 1 mg PO DAILY #30 tabs 11/05/21 05/14/22 Rx cholecalciferol (vitamin D3) 25 25 mcg PO DAILY 11/16/21 05/14/22 History mcg (1,000 unit) tablet (Vitamin D3) letrozole 2.5 mg tablet 2.5 mg PO QPM 11/16/21 05/14/22 History aspirin 81 mg tablet,delayed 81 mg PO QAM 05/14/22 05/14/22 History release brinzolamide 1 %-brimonidine 0.2 % 1 drp ophthalmic (eye) QDL 05/14/22 05/14/22 History eye drops,suspension (Simbrinza) calcium carbonate 500 mg calcium 500 mg PO DAILY 05/14/22 05/14/22 History (1,250 mg) chewable tablet (Calcium 500) carbamazepine 200 mg tablet 200 mg PO TID 05/14/22 05/14/22 History cyanocobalamin (vitamin B-12) 1,000 mcg PO DAILY 05/14/22 05/14/22 History 1,000 mcg tablet (Vitamin B-12) docusate sodium 100 mg capsule 100 mg PO DAILY 05/14/22 05/14/22 History duloxetine 30 mg capsule,delayed 30 mg PO DAILY 05/14/22 05/14/22 History release ezetimibe 10 mg tablet (Zetia) 10 mg PO DAILY 05/14/22 05/14/22 History lisinopril 40 mg tablet 40 mg PO QAM 05/14/22 05/14/22 History sennosides 8.6 mg-docusate sodium 1 - 2 tab-cap PO DAILY PRN HIGH 05/14/22 05/14/22 History 50 mg tablet (Senna-S) DOSE OF PERCOCET Past Med/Surg History Medical History Anxiety and depression Asthma last rescue inhaler use > 6 months ago Chronic diastolic (congestive) heart failure echo 12/2019 - EF 55-60%, grade I diastolic dysfunction CKD (chronic kidney disease) stage 3, GFR 30-59 ml/min Follows with S PCP and internal medicine Coronary artery calcification Dependent edema on diuretic, chronic per pt without change or worsening Diabetes mellitus, type 2 NIDDM Diabetic neuropathy B/L feet, legs Disc disorder of lumbar region Dyslipidemia Glaucoma Hearing deficit Left ear - no hearing aids History of carotid stenosis s/p R/L carotid endarterectomy (2003) History of CVA (cerebrovascular accident) History of gastric ulcer > 40 yrs ago History of skin cancer HX: breast cancer R partial mastectomy and radiation, no chemo-denies limb restriction Hypertension controlled, stable per pt Polyneuropathy Pulmonary histoplasmosis Remote hx > chronic interstitial thickening and calcified granulomas noted on prior CXRs Sleep apnea BIPAP + 4L O2-compliant Stroke 2003 - intermittent vertigo and occasional right sided weakness Trigeminal neuralgia s/p trigeminal decompression (). On carbamazepine, follows with [facility] neuro (Dr. Jackson) Surgical History Fatty tumor "removed" H/O partial mastectomy R breast History of cataract surgery RT/LEFT History of cholecystectomy History of colonoscopy w/ polypectomy History of esophagogastroduodenoscopy (EGD) History of surgery Trigeminal decompression of 5th nerve History of surgical removal of ganglion cyst History of tonsillectomy and adenoidectomy History of tooth extraction History of total knee replacement LEFT History of total shoulder replacement Right (11/14/17): Elective Glidescope #3 due to Grade 3 View and difficulty visualizing cords, ETT #7.0. Patient re-positioned twice. History of total shoulder replacement Left shoulder replacement (12/25/18): Grade 3 view (unable to read details regarding grade view on anesthesia records), Glidescope #3, ETT 7.5 + PNB at [facility] Hx of dilation and curettage S/P carotid endarterectomy S/P lumpectomy, right breast With right axillary SLN biopsy on 06/06/[address] Goel Status post left knee replacement (~12/2020) Family History Father , age 96 of a stroke Coronary heart disease Stroke Mother , age 79 of an [place] Myocardial infarction Brother Ankylosing spondylitis of site in spine Daughter No problems noted. Son No problems noted. 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 How many Children do You have: 1 Feels Safe at Home: Yes Safety Concerns: Feels Safe At This Time caffeine: Yes (4 cups/week) during the past year weight has: remained stable Assistive Devices: BiPap, Cane, Glasses and Walker Review of Systems All systems reviewed & are unremarkable except as noted in HPI & below. Physical Exam On physical examination the right hand, she is aluminum splint in place. I do not see any rotational deformities of the finger. She has minimal tenderness. There is a little bit of ecchymosis in the area.. Constitutional WD/WN, vitals as above Eyes PERRL, conjunctivae normal, anicteric sclerae ENMT external ear and nose normal, oropharynx normal Neck trachea midline, no thyromegaly Respiratory normal respiratory effort, lungs clear to auscultation Cardiovascular RRR, no murmur, no edema Gastrointestinal (Abdomen) normal bowel sounds, soft, nontender, no hepatosplenomegaly Skin no rashes, warm and dry Psychiatric A+Ox3, euthymic affect Results & Data Results & Data Laboratory Results . Diagnostic Findings X-rays of the right hand show a minimally displaced fracture at the base of the proximal phalanx of the right fifth finger. PG Care Time/CCT Total # of Minutes Spent Total Time Spent with Patient: Total time spent is greater than 50% in coordination of care (as documented) at patient's floor/unit and/or counseling patient: Coding Level of Care Code 28448 Inpt Consult Level 4 Diagnoses Phalanx, proximal fracture of finger S62.619A
[2022-05-15] MEDS ORDERED: DOCUSATE SODIUM 100 MG CAP PO SCH (09:00)
[2022-05-15] MEDS ORDERED: LABETALOL HCL 100 MG TAB PO SCH (09:00)
--- NOTE | 2022-05-15 10:07 | XRay Report ---
XR chest 1V portable HISTORY: Hypertension. COMPARISON: Chest x-ray 12/27/2019. FINDINGS: No pneumothorax. No pleural effusions. The heart remains mildly enlarged. Mild interstitial thickening persists. Increased markings at the right lung base may represent subsegmental atelectasi s. No evidence for pulmonary edema. There are bilateral total shoulder arthroplasties. IMPRESSION: 1. Stable mild cardiomegaly and mild chronic interstitial thickening. 2. Increased markings at the right lung base may represent subsegmental atelectasis. ACT 112: Negative or not required by law. Electronically signed by: Fawad Holm M.D. 05/15/2022 10:05 AM
[2022-05-15] MEDS: FOLIC ACID 1 MG TAB PO SCH (11:19)
[2022-05-15] MEDS: LABETALOL HCL 200 MG TAB PO SCH ×2 (11:19→21:36)
[2022-05-15] MEDS: EZETIMIBE 10 MG TABLET PO SCH (11:19)
[2022-05-15] MEDS: DULoxetine HCL 30 MG CAP PO SCH (11:20)
[2022-05-15] MEDS: ATORVASTATIN 40 MG TAB PO SCH (11:20)
[2022-05-15] MEDS: CYANOCOBALAMIN (B-12) 500 MCG TABLET PO SCH (11:20)
[2022-05-15] MEDS: DOCUSATE SODIUM/SENNA 50/8.6MG TAB PO SCH (11:20)
--- NOTE | 2022-05-15 12:27 | Hospitalist Progress Note ---
Date of Service May 15, 2022 Assessment & Plan (1) Fall: (2) Facial laceration: (3) Fracture of inferior orbital wall: (4) Fracture of proximal phalanx of digit of right hand: Plan: Presented from home after mechanical fall Had repair of laceration in the ED on the outer aspect of left eye Facial CT showed depression commuted right orbital floor fracture Right hand x-ray shows fifth proximal phalangeal fracture Plan; -Orthopedic evaluated the proximal phalangeal fracture; recommend to maintain splint for 4 to 6 weeks. Follow-up with orthopedic in 2 weeks for repeat x- rays. -Maxillofacial surgery consulted for fracture of orbital wall; to evaluate the patient in the evening today. -Continue pain control. Stop IV fluids and diet started. (5) Hypertensive urgency: Plan: Blood pressure elevated; history of resistant hypertension exacerbated by pain currently. On labetalol, lisinopril and Lasix. Amlodipine 10 mg added and Lasix resumed (6) Anxiety and depression: Plan: Continue on duloxetine (7) Chronic diastolic (congestive) heart failure: Plan: Compensated. Lasix resumed. (8) CKD (chronic kidney disease) stage 3, GFR 30-59 ml/min: Plan: Creatinine 0.74 (9) Sleep apnea: Plan: CPAP order placed (10) Hyperlipidemia: Plan: Continue on Lipitor and Zetia (11) Polyneuropathy: Plan: On gabapentin. On carbamazepine for trigeminal neuralgia (12) Type 2 diabetes mellitus: Plan: On insulin glargine and NovoLog. Admission and Anticipated Discharge Date Admission Date: May 14, 2022 Subjective Patient seen and examined at bedside. She is sleeping but easily awake able;pain is well controlled on current regimen. Review of Systems Review of Systems: All systems reviewed & are unremarkable except as noted in Subjective Physical Exam Physical Exam: General Appearance: vitals as above, NAD, sitting up in bed, pleasant, conversing easily Head: Suture intact on the lateral aspect of her right eye. Ecchymosis and significant swelling present surrounding the right eye. Eyes: PERRL ENT: external ear and nose normal, oropharynx normal Neck: normal visual inspection, trachea midline, no thyromegaly Respiratory: normal respiratory effort, lungs clear to auscultation, no wheeze, rales, rhonchi. No accessory muscle use Cardiovascular: regular rate, rhythm, no murmur, normal peripheral pulses, no BLE edema. Vessels: no JVD Chest: normal inspection of chest Abdomen/GI: normal bowel sounds, soft, nontender, no hepatosplenomegaly Extremities/Musculoskeletal: Splint present in fifth proximal phalanx of right hand. Neurologic: PERRL, EOMI, accommodation nl, no face palsy, no dysarthria, CN's II-XI intact bilaterally and moves all extremities Psychiatric: A+Ox3, euthymic affect Skin: no rashes, normal color, warm/dry Results & Data Results & Data ([facility]) Vital Signs (Past 12 Hours) Vital Signs Temp Pulse Resp BP Pulse Ox O2 Del Method O2 Flow Rate 05/15/22 11:49 36.5 C 72 18 190/70 H 97 Nasal Cannula 3.0 05/15/22 07:54 36.6 C 61 20 131/63 95 Nasal Cannula 3.0 05/15/22 05:32 146/69 H 05/15/22 04:27 172/77 H 05/15/22 03:34 189/76 H 05/15/22 03:01 36.4 C L 71 18 173/79 H 96 Nasal Cannula 4 05/15/22 01:02 Nasal Cannula 3 05/15/22 01:57 74 201/69 H 96 Nasal Cannula 3 05/15/22 00:44 73 200/72 H 95 Nasal Cannula 3 Laboratory Results Laboratory Results WBC 11.92 K/ul (4.8-10.8) H 05/15/22 05:23 RBC 4.31 M/uL (3.93-5.22) 05/15/22 05:23 Hgb 13.1 g/dl (12.0-16.0) 05/15/22 05:23 Hct 40.7 % (34.1-44.9) 05/15/22 05:23 MCV 94.4 fL (80.0-100.0) 05/15/22 05:23 MCH 30.4 pg (25.0-34.0) 05/15/22 05:23 MCHC 32.2 g/dL (32.0-36.0) 05/15/22 05:23 RDW Std Deviation 46.3 fL (36.4-46.3) 05/15/22 05:23 RDW Coeff of Mono 13.3 % (11.5-14.5) 05/15/22 05:23 Plt Count 243 K/uL (130-400) 05/15/22 05:23 MPV 9.3 fL (9.4-12.3) L 05/15/22 05:23 Immature Gran % (Auto) 0.3 % 05/15/22 05:23 Neut % (Auto) 81.4 % 05/15/22 05:23 Lymph % (Auto) 12.2 % 05/15/22 05:23 [place] % (Auto) 5.5 % 05/15/22 05:23 Eos % (Auto) 0.3 % 05/15/22 05:23 Baso % (Auto) 0.3 % 05/15/22 05:23 Neut # (Auto) 9.69 K/uL (1.4-6.5) H 05/15/22 05:23 Lymph # (Auto) 1.45 K/uL (1.2-3.4) 05/15/22 05:23 [place] # (Auto) 0.66 K/uL (0.24-0.82) 05/15/22 05:23 Eos # (Auto) 0.04 K/uL (0-0.50) 05/15/22 05:23 Baso # (Auto) 0.04 K/uL (0-0.2) 05/15/22 05:23 Immature Gran # (Auto) 0.04 K/uL (0.00-0.02) H 05/15/22 05:23 APTT 27.3 Seconds (21.0-31.0) 05/14/22 22:55 PTT Ratio 1.0 05/14/22 22:55 Sodium 141 mmol/L (136-145) 05/15/22 05:23 Potassium 4.0 mmol/L (3.5-5.1) 05/15/22 05:23 Chloride 99 mmol/L (98-107) 05/15/22 05:23 Carbon Dioxide 37 mmol/L (21-32) H 05/15/22 05:23 Anion Gap 5 (3-11) 05/15/22 05:23 BUN 11 mg/dl (6-23) 05/15/22 05:23 Creatinine 0.74 mg/dl (0.6-1.2) 05/15/22 05:23 Est Cr Clr Drug Dosing 71.6 ml/min 05/15/22 05:23 Est GFR ( Amer) 91.2 ml/min 05/15/22 05:23 Est GFR (Non-Af Amer) 78.7 ml/min 05/15/22 05:23 BUN/Creatinine Ratio 14.9 (10-20) 05/15/22 05:23 Glucose 122 mg/dl (70-99(Fasting)) H 05/15/22 05:23 POC Glucose 89 mg/dl (70-99) 05/15/22 11:58 Calcium 9.3 mg/dl (8.5-10.1) 05/15/22 05:23 Magnesium 2.2 mg/dl (1.7-2.4) 05/14/22 22:55 Carbamazepine 11.2 mcg/ml (4-12) 05/14/22 22:55 SARS-CoV-2, RNA, NAAT NEGATIVE (NEGATIVE) 05/14/22 21:34 Blood Type O Negative 05/15/22 05:23 Antibody Screen NEGATIVE 05/15/22 05:[address] 05/14/22 15:35 CT SCAN OF THE CERVICAL SPINE CLINICAL HISTORY: Fall. Neck injury. COMPARISON STUDY: CT of the neck dated 12/27/2019. TECHNIQUE: CT scan of the cervical spine is performed from the skull base to the upper thoracic spine. Images are reviewed in the axial, sagittal, and coronal planes. IV contrast was not administered for this examination. A dose lowering technique was utilized adhering to the principles of ALARA. CT DOSE: 473.08 mGycm FINDINGS: Skeletal structures: The skeletal structures are osteopenic. There is no evidence of fracture or subluxation involving the cervical spine. Vertebral body height and alignment are maintained. There is straightening of the cervical lordosis. Anterior osteophytes are seen throughout. The odontoid process and lateral masses are intact. The atlantoaxial articulation is preserved noting mild productive degenerative change. The spinous processes appear intact. There is moderate multilevel cervical spondylosis. Uncovertebral facet arthropathy contribute to foraminal narrowing at several levels. Intervertebral discs: There is moderate to severe disc space narrowing at all levels between C4-C5 and T1-T2. Central canal: Posterior disc osteophyte complexes are seen at all cervical levels between C4-C5 and T1-T2. This likely contributes to multilevel acquired compromise of the central canal. Soft tissues: The prevertebral and paraspinous soft tissues are within normal limits. There is atherosclerotic calcification of the carotid bulbs. Calvarium: There is postoperative change from left occipital craniectomy. The visualized calvarium at the skull base otherwise appears intact. Brain parenchyma: Partially visualized brain parenchyma at the skull base is within normal limits. Sinuses and mastoids: The visualized paranasal sinuses are clear. There is a small left mastoid effusion. The right mastoid air cells are well pneumatized. Lung apices: Clear as visualized. IMPRESSION: 1. There is no evidence of fracture or subluxation involving the cervical spine. 2. Osteopenia and spondylitic change as both. ACT 112: Negative or not required by law. Electronically signed by: Michael Rajan M.D. 05/14/2022 4:[address] 05/14/22 15:[address] DOSE: 788.63 mGycm HISTORY: fall TECHNIQUE: Multiaxial CT images of the head were performed without the use of intravenous contrast. Automated exposure control was utilized for this study. A dose lowering technique was utilized adhering to the principles of ALARA. Comparison: Head CT 12/27/2019. Findings: There is a displaced right orbital floor fracture with hemorrhage within the right maxillary sinus. This is better appreciated on the same day facial CT. Prior left suboccipital craniectomy again noted. No calvarial fractures. Right periorbital soft tissue swelling. Mild atrophy and mild microvascular ischemic changes again noted. There is an old lacunar infarct within the right caudate head. There is no mass, hematoma, midline shift, or acute infarct. Impression: 1. Displaced right orbital floor fracture with right maxillary sinus hemorrhage. This is better appreciated on the same day maxillofacial CT. 2. Otherwise, no acute intracranial abnormality. 3. Additional findings as described above. ACT 112: Negative or not required by law. Electronically signed by: Fawad Holm M.D. 05/14/2022 4:[address] 05/14/22 15:[address] DOSE: 542.52 mGycm HISTORY: fall, right face lac, nose pain TECHNIQUE: Multiaxial CT images of the maxillofacial region were performed and reformatted in the coronal plane without the use of contrast. A dose lowering technique was utilized adhering to the principles of ALARA. COMPARISON: None. FINDINGS: The visualized cervical spine, mandible, zygomatic arches, nasal bones, pterygoid plates, and left orbital floor are intact. Right maxillary sinus hemorrhage is noted. There is a comminuted and depressed right orbital floor fracture. This demonstrates up to 5 mm of depression. Trace extraconal gas adjacent to the orbital floor fracture. Small amount of extraconal fat herniating through the right orbital floor defect. There is also trace extraconal hemorrhage inferiorly along the orbital floor fracture. The globes and retrobulbar fat are intact. There is mild right periorbital soft tissue swelling. IMPRESSION: 1. Depressed and comminuted right orbital floor fracture as described above. 2. There is a small amount of extraconal fat herniating through the right orbital floor defect. Clinical correlation recommended to assess for entrapment. 3. Trace extraconal hemorrhage and gas inferiorly along the orbital floor fracture. ACT 112: Negative or not required by law. Electronically signed by: Fawad Holm M.D. 05/14/2022 4:11 PM Hand X-Ray 05/14/22 17:08 RIGHT HAND 3 VIEWS CLINICAL HISTORY: Fall. Right hand injury. FINDINGS: 3 views of the right hand are obtained. No prior studies are available for comparison at the time of dictation. The skeletal structures are osteopenic. There is a minimally displaced oblique fracture through the proximal shaft of the fifth proximal phalanx. No additional fracture is seen. There is degenerative narrowing at the radiocarpal articulation. Mild osteoarthritic change is noted at the first carpometacarpal and metacarpophalangeal joints. Mild osteoarthritic change is also seen throughout the interphalangeal joints, distal greater than proximal. Dorsal soft tissue swelling is noted. IMPRESSION: Fifth proximal phalangeal fracture as above. Electronically signed by: Michael Rajan M.D. 05/14/2022 6:54 PM Chest X-Ray 05/14/22 21:25 XR chest 1V portable HISTORY: Hypertension. COMPARISON: Chest x-ray 12/27/2019. FINDINGS: No pneumothorax. No pleural effusions. The heart remains mildly enlarged. Mild interstitial thickening persists. Increased markings at the right lung base may represent subsegmental atelectasis. No evidence for pulmonary edema. There are bilateral total shoulder arthroplasties. IMPRESSION: 1. Stable mild cardiomegaly and mild chronic interstitial thickening. 2. Increased markings at the right lung base may represent subsegmental atelectasis. ACT 112: Negative or not required by law. Electronically signed by: Fawad Holm M.D. 05/15/2022 10:05 AM
[2022-05-15] MEDS ORDERED: carvediloL 6.25 MG TAB PO SCH (12:30)
[2022-05-15] MEDS: amLODIPine BESYLATE 5 MG TAB PO SCH (14:56)
--- NOTE | 2022-05-15 16:42 | Electrocardiogram Report ---
Test Reason : Blood Pressure : / mmHG Vent. Rate : 078 BPM Atrial Rate : 078 BPM P-R Int : 186 ms QRS Dur : 094 ms QT Int : 412 ms P-R-T Axes : 047 030 076 degrees QTc Int : 469 ms Normal sinus rhythm Possible Inferior infarct , age undetermined Cannot rule out Anterior infarct , age undetermined Abnormal ECG When compared with ECG of 28-DEC-2019 07:11, Minimal criteria for Anterior infarct are now Present Borderline criteria for Inferior infarct are now Present QT has lengthened Confirmed by Faizan Vale ([id number]) on 05/15/2022 4:42:48 PM Referred By: REFERRED SELF Confirmed By:Faizan Vale
[2022-05-15] MEDS: FUROSEMIDE 40 MG TAB PO SCH (16:58)
[2022-05-15] MEDS ORDERED: GABAPENTIN 300 MG CAP PO SCH (18:00)
[2022-05-15] MEDS ORDERED: MONTELUKAST SODIUM 10 MG TABLET PO SCH (21:00)
[2022-05-15] MEDS: oxyCODONE HCL IR 5 MG TAB (IMMEDIATE RELEASE) PO PRN (21:36)
[2022-05-16] MEDS: oxyCODONE HCL IR 5 MG TAB (IMMEDIATE RELEASE) PO PRN (03:24)
[2022-05-16] MEDS: ACETAMINOPHEN 325 MG TAB PO PRN (06:04)
[2022-05-16 07:54] VITALS: O2SAT 94
--- NOTE | 2022-05-16 09:03 | Oral/Maxillofacial Consult ---
Date of Consultation May 16, 2022 Assessment & Plan (1) Sleep apnea: (2) Fracture of inferior orbital wall: (3) Fall: (4) Trigeminal neuralgia: History of Present Illness Attending Physician: Gabe Rivero MD History of Present Illness Present history--fall with right orbital floor fracture: This is a 76yo F with a PMH of type 2 diabetes, hypertension, history of CVA, trigeminal neuralgia, history of tobacco use, sleep apnea with on BiPAP and oxygen, COPD and other medical problems listed below who presents after a fall at home. Patient reports she was in a hurry walking earlier today and was going up a curb when her leg gave our and missed a step, falling forward and striking her right face and hand on the ground. Had a laceration to the right eye and was seen in [facility] for this but then reported to ED for further laceration repair. No loss of consciousness, visual changes, neck pain, chest pain, shortness of breath, nausea, vomiting, abdominal pain, dysuria, diarrhea constipation. In ED, patient became nauseated and had one episode of vomiting. Still feeling nauseated and with facial pain and headache. Will be admitted for further treatment of elevated blood pressure and pain control. Received 10 mg IV labetalol as well as missed evening oral antihypertensives. Hydralazine and additional pain medication ordered at this time. Repeat blood pressure 220/90. MAXILLOFACIAL CT HISTORY: fall, right face lac, nose pain FINDINGS: The visualized cervical spine, mandible, zygomatic arches, nasal bones, pterygoid plates, and left orbital floor are intact. Right maxillary sinus hemorrhage is noted. There is a comminuted and depressed right orbital floor fracture. This demonstrates up to 5 mm of depression. Trace extraconal gas adjacent to the orbital floor fracture. Small amount of extraconal fat herniating through the right orbital floor defect. There is also trace extraconal hemorrhage inferiorly along the orbital floor fracture. The globes and retrobulbar fat are intact. There is mild right periorbital soft tissue swelling. IMPRESSION: 1. Depressed and comminuted right orbital floor fracture as described above. 2. There is a small amount of extraconal fat herniating through the right orbital floor defect. Clinical correlation recommended to assess for entrapment. 3. Trace extraconal hemorrhage and gas inferiorly along the orbital floor fracture. I evaluated Rama last night in room 222. Her right eye is very swollen and closed due to the edema. There is a well sutured laceration on the lateral of the right eye. I was unable to determine if there is any entrapment due to the swelling. See states that her vision is OK and she does not appear to have any double vision but until the swelling subsides it is impossible to determine accurately. Suggested treatment plan: 1) No Bi PAP as with the floor fracture and the pressure from the Bi PAP this will cause air into the tissues via the orbital floor fracture. 2) Sleep with head elevated for the next 2 weeks and then slowly restart the Bi PAP with a small amount of pressure to see if she can tolerate her established Bi PAP pressure--we will restart the Bi PAP once i see her as an outpatient. 3) I will re evaluate Mrs. Daniel next week to continue to follow her for resolution of the swelling and determine if there is any entrapment and if there is a need for surgical floor repair. 4) My office will be calling her once she is discharged so we can set up a follow up. Once her blood pressure and medical issues are stabilized she may be discharged from my point of view, we will follow up upon D/C. Thanks, Ezra Navarrete DMD [facility] Oral Maxillofacial Surgery Allergies Allergy/AdvReac Type Severity Reaction Status Date / Time clarithromycin Allergy Mild Mouth Verified 05/14/22 18:02 burning Home Medications Medication Instructions Recorded Confirmed Type atorvastatin 80 mg tablet 80 mg PO DAILY 11/12/18 05/14/22 History montelukast 10 mg tablet 10 mg PO HS 11/12/18 05/14/22 History furosemide 40 mg tablet 40 mg PO BID #60 tabs 12/30/19 05/14/22 Rx semaglutide 1 mg/dose (2 mg/1.5 1 mg subcut WK 04/18/20 05/14/22 History mL) subcutaneous pen injector (Ozempic) empagliflozin 25 mg tablet 25 mg PO QAM 07/18/20 05/14/22 History (Jardiance) fexofenadine-pseudoephedrine ER 1 tab PO HS 07/18/20 05/14/22 History 180 mg-240 mg tablet,ext.release 24 hr (Teodora-D 24 Hour) oxycodone-acetaminophen 5 mg-325 1 tab PO Q8H PRN pain #20 tabs 03/21/21 Rx mg tablet (Percocet) azelastine-fluticasone 137 mcg-50 2 spray intranasal HS 07/04/21 05/14/22 History mcg/spray nasal spray fluticasone propionate 50 1 spray intranasal HS 07/04/21 05/14/22 History mcg/actuation nasal spray,suspension (Flonase Allergy Relief) insulin glargine 100 unit/mL (3 44 unit subcut QPM 07/04/21 05/14/22 History mL) subcutaneous pen (Lantus Solostar U-100 Insulin) labetalol 200 mg tablet See Rx Instructions .Route .COMPLEX 07/04/21 05/14/22 History gabapentin 300 mg capsule 300 mg PO .COMPLEX #270 caps 07/17/21 05/14/22 Rx folic acid 1 mg tablet 1 mg PO DAILY #30 tabs 11/05/21 05/14/22 Rx cholecalciferol (vitamin D3) 25 25 mcg PO DAILY 11/16/21 05/14/22 History mcg (1,000 unit) tablet (Vitamin D3) letrozole 2.5 mg tablet 2.5 mg PO QPM 11/16/21 05/14/22 History aspirin 81 mg tablet,delayed 81 mg PO QAM 05/14/22 05/14/22 History release brinzolamide 1 %-brimonidine 0.2 % 1 drp ophthalmic (eye) QDL 05/14/22 05/14/22 History eye drops,suspension (Simbrinza) calcium carbonate 500 mg calcium 500 mg PO DAILY 05/14/22 05/14/22 History (1,250 mg) chewable tablet (Calcium 500) carbamazepine 200 mg tablet 200 mg PO TID 05/14/22 05/14/22 History cyanocobalamin (vitamin B-12) 1,000 mcg PO DAILY 05/14/22 05/14/22 History 1,000 mcg tablet (Vitamin B-12) docusate sodium 100 mg capsule 100 mg PO DAILY 05/14/22 05/14/22 History duloxetine 30 mg capsule,delayed 30 mg PO DAILY 05/14/22 05/14/22 History release ezetimibe 10 mg tablet (Zetia) 10 mg PO DAILY 05/14/22 05/14/22 History lisinopril 40 mg tablet 40 mg PO QAM 05/14/22 05/14/22 History sennosides 8.6 mg-docusate sodium 1 - 2 tab-cap PO DAILY PRN HIGH 05/14/22 05/14/22 History 50 mg tablet (Senna-S) DOSE OF PERCOCET Patient History Medical History Anxiety and depression Asthma last rescue inhaler use > 6 months ago Chronic diastolic (congestive) heart failure echo 12/2019 - EF 55-60%, grade I diastolic dysfunction CKD (chronic kidney disease) stage 3, GFR 30-59 ml/min Follows with S PCP and internal medicine Coronary artery calcification Dependent edema on diuretic, chronic per pt without change or worsening Diabetes mellitus, type 2 NIDDM Diabetic neuropathy B/L feet, legs Disc disorder of lumbar region Dyslipidemia Glaucoma Hearing deficit Left ear - no hearing aids History of carotid stenosis s/p R/L carotid endarterectomy (2003) History of CVA (cerebrovascular accident) History of gastric ulcer > 40 yrs ago History of skin cancer HX: breast cancer R partial mastectomy and radiation, no chemo-denies limb restriction Hypertension controlled, stable per pt Polyneuropathy Pulmonary histoplasmosis Remote hx > chronic interstitial thickening and calcified granulomas noted on prior CXRs Sleep apnea BIPAP + 4L O2-compliant Stroke 2003 - intermittent vertigo and occasional right sided weakness Trigeminal neuralgia s/p trigeminal decompression (). On carbamazepine, [facility] (Dr. Jackson) Surgical History Fatty tumor "removed" H/O partial mastectomy R breast History of cataract surgery RT/LEFT History of cholecystectomy History of colonoscopy w/ polypectomy History of esophagogastroduodenoscopy (EGD) History of surgery Trigeminal decompression of 5th nerve History of surgical removal of ganglion cyst History of tonsillectomy and adenoidectomy History of tooth extraction History of total knee replacement LEFT History of total shoulder replacement Right (11/14/17): Elective Glidescope #3 due to Grade 3 View and difficulty visualizing cords, ETT #7.0. Patient re-positioned twice. History of total shoulder replacement Left shoulder replacement (12/25/18): Grade 3 view (unable to read details regarding grade view on anesthesia records), Glidescope #3, ETT 7.5 + PNB at [facility] Hx of dilation and curettage S/P carotid endarterectomy S/P lumpectomy, right breast With right axillary SLN biopsy on 06/06/[address] Goel Status post left knee replacement (~12/2020) Family History Father , age 96 of a stroke Coronary heart disease Stroke Mother , age 79 of an MA Myocardial infarction Brother Ankylosing spondylitis of site in spine Daughter No problems noted. Son No problems noted. 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 How many Children do You have: 1 Feels Safe at Home: Yes Safety Concerns: Feels Safe At This Time caffeine: Yes (4 cups/week) during the past year weight has: remained stable Assistive Devices: Cane and Walker Results & Data ([facility]) Vital Signs (Past 12 Hours) Vital Signs Temp Pulse Pulse Pulse Resp BP Pulse Ox 05/16/22 07:53 36.7 C 71 20 162/62 H 94 05/15/22 23:19 05/16/22 02:59 37.3 C 77 16 157/64 H 95 05/16/22 01:41 73 05/15/22 23:19 05/15/22 22:33 36.8 C 74 16 162/71 H 95 Pulse Ox O2 Del Method O2 Del Method O2 Flow Rate O2 Flow Rate 05/16/22 07:53 Nasal Cannula 4 05/15/22 23:19 Nasal Cannula 3 05/16/22 02:59 Nasal Cannula 4 05/16/22 01:41 05/15/22 23:19 95 Nasal Cannula 3 05/15/22 22:33 Nasal Cannula 4 PG Care Time/CCT Total # of Minutes Spent Total Time Spent with Patient: Total time spent is greater than 50% in coordination of care (as documented) at patient's floor/unit and/or counseling patient: Coding Level of Care Code 05188 Initial Inpt Care Lvl 3 Diagnoses Sleep apnea G47.30 Fracture of inferior orbital wall S02.30XA Fall W19.XXXA Trigeminal neuralgia G50.0
[2022-05-16 09:08] LABS: Basophils # (auto) 0.03 K/uL (0-0.2); Basophils % (auto) 0.4 %; Eosinophils # (auto) 0.06 K/uL (0-0.50); Eosinophils % (auto) 0.8 %; Hematocrit (blood only) 36.9 % (34.1-44.9); Immature Granulocytes # (auto) 0.03 K/uL (0.00-0.02); Immature Granulocytes % (auto) 0.4 %; Lymphocytes # (auto) 1.23 K/uL (1.2-3.4); Lymphocytes % (auto) 15.5 %; Mean Corpuscular Hemoglobin 30.3 pg (25.0-34.0); Mean Corpuscular Hgb Conc 32.5 g/dL (32.0-36.0); Mean Corpuscular Volume 93.2 fL (80.0-100.0); Mean Platelet Volume 9.7 fL (9.4-12.3); Monocytes # (auto) 0.66 K/uL (0.24-0.82); Monocytes % (auto) 8.3 %; Neutrophils % (auto) 74.6 %; Platelet Count 198 K/uL (130-400); RDW Coefficient of Variation 13.7 % (11.5-14.5); RDW Standard Deviation 47.2 fL (36.4-46.3); Red Blood Count 3.96 M/uL (3.93-5.22); White Blood Count 7.91 K/ul (4.8-10.8)
[2022-05-16] MEDS: INSULIN ASPART PER UNIT SC SCH ×2 (09:09→12:10)
[2022-05-16] MEDS: LANTUS PER UNIT CHARGE SQ SCH (09:10)
[2022-05-16] MEDS: EZETIMIBE 10 MG TABLET PO SCH (09:12)
[2022-05-16] MEDS: lisinopril 40 MG TAB PO SCH (09:12)
[2022-05-16] MEDS: FUROSEMIDE 40 MG TAB PO SCH (09:12)
[2022-05-16] MEDS: CYANOCOBALAMIN (B-12) 500 MCG TABLET PO SCH (09:13)
[2022-05-16] MEDS: amLODIPine BESYLATE 5 MG TAB PO SCH (09:13)
[2022-05-16] MEDS: DULoxetine HCL 30 MG CAP PO SCH (09:13)
[2022-05-16] MEDS: DOCUSATE SODIUM/SENNA 50/8.6MG TAB PO SCH (09:13)
[2022-05-16] MEDS: ATORVASTATIN 40 MG TAB PO SCH (09:13)
[2022-05-16] MEDS: carBAMazepine 200 MG TABLET PO SCH ×2 (09:14→14:16)
[2022-05-16] MEDS: LABETALOL HCL 200 MG TAB PO SCH (09:14)
[2022-05-16] MEDS: FOLIC ACID 1 MG TAB PO SCH (09:14)
[2022-05-16 09:41] LABS: Albumin Globulin Ratio 1.3 (0.9-2); Albumin Level 3.5 gm/dl (3.4-5.0); BUN Creatinine Ratio 16.1 (10-20); Bilirubin,Total 0.5 mg/dl (0.2-1.0); Calcium 8.6 mg/dl (8.5-10.1); Creatinine Clr Calc Pharmacy 62.4 ml/min; Est GFR (Non-African American) 64.7 ml/min; Globulin 2.8 gm/dl (2.5-4.0); Potassium 3.3 mmol/L (3.5-5.1); Total Protein 6.3 gm/dl (6.0-8.3)
[2022-05-16 11:22] VITALS: BP 128/72; TEMP 97.9
[2022-05-16 15:55] VITALS: PULSE 77
--- NOTE | 2022-05-16 16:02 | Discharge Summary ---
Date of Service May 16, 2022 Admission HPI Per Admitting Provider This is a 76yo F with a PMH of type 2 diabetes, hypertension, history of CVA, trigeminal neuralgia, history of tobacco use, sleep apnea with on BiPAP and oxygen, COPD and other medical problems listed below who presents after a fall at home. Patient reports she was in a hurry walking earlier today and was going up a curb when her leg gave our and missed a step, falling forward and striking her right face and hand on the ground. Had a laceration to the right eye and was seen in [facility] for this but then reported to ED for further laceration repair. No loss of consciousness, visual changes, neck pain, chest pain, shortness of breath, nausea, vomiting, abdominal pain, dysuria, diarrhea constipation. In ED, patient became nauseated and had one episode of vomiting. Still feeling nauseated and with facial pain and headache. Will be admitted for further treatment of elevated blood pressure and pain control. Received 10 mg IV labetalol as well as missed evening oral antihypertensives. Hydralazine and additional pain medication ordered at this time. Repeat blood pressure 220/90. Admission Exam Per Admitting Provider General Appearance:vitals as above, NAD, sitting up in bed, pleasant, conversing easily Head: normocephalic, + R facial contusion and laceration lateral to R eye with significant edema and ecchymosis Eyes:PERRL ENT: external ear and nose normal, oropharynx normal Neck: normal visual inspection, trachea midline, no thyromegaly Respiratory:normal respiratory effort, lungs clear to auscultation, no wheeze, rales, rhonchi. No accessory muscle use Cardiovascular: regular rate, rhythm, no murmur, normal peripheral pulses, no BLE edema. Vessels: no JVD Chest: normal inspection of chest Abdomen/GI: normal bowel sounds, soft, nontender, no hepatosplenomegaly Extremities/Musculoskeletal: no cyanosis or clubbing, extremities motor strength 5/5 Neurologic: PERRL, EOMI, accommodation nl, no face palsy, no dysarthria, CN's II-XI intact bilaterally and moves all extremities Psychiatric:A+Ox3, euthymic affect Skin: no rashes, normal color, warm/dry Principal Diagnosis (1) Fall: (2) Facial laceration: (3) Fracture of inferior orbital wall: (4) Fracture of proximal phalanx of digit of right hand: Discharge Exam General Appearance: vitals as above, NAD, sitting up in bed, pleasant, conversing easily Head: Suture intact on the lateral aspect of her right eye. Ecchymosis and swelling improved. Respiratory: normal respiratory effort, lungs clear to auscultation, no wheeze, rales, rhonchi. No accessory muscle use Cardiovascular: regular rate, rhythm, no murmur, normal peripheral pulses, no BLE edema. Vessels: no JVD Chest: normal inspection of chest Abdomen/GI: normal bowel sounds, soft, nontender, no hepatosplenomegaly Extremities/Musculoskeletal: Splint present in fifth proximal phalanx of right hand. Neurologic: PERRL, EOMI, accommodation nl, no face palsy, no dysarthria, CN's II-XI intact bilaterally and moves all extremities Psychiatric: A+Ox3, euthymic affect Skin: no rashes, normal color, warm/dry Discharge Data Allergies Allergy/AdvReac Type Severity Reaction Status Date / Time clarithromycin Allergy Mild Mouth Verified 05/14/22 18:02 burning Consultations 05/14/22 21:48 ED Decision to Admit Stat 05/14/22 22:40 Consult Oromaxillofacial Surgery Routine Consult Orthopedic Surgery Routine Ordered Studies 05/14/22 15:35 CT cervical spine wo con Stat CT head/brain wo con Stat 05/14/22 15:49 CT facial bones wo con Stat Hospital Course (1) Fall: (2) Facial laceration: (3) Fracture of inferior orbital wall: (4) Fracture of proximal phalanx of digit of right hand: (5) Hypertensive urgency: (6) Anxiety and depression: (7) Chronic diastolic (congestive) heart failure: (8) CKD (chronic kidney disease) stage 3, GFR 30-59 ml/min: (9) Sleep apnea: (10) Hyperlipidemia: (11) Polyneuropathy: (12) Type 2 diabetes mellitus: Plan Patient is a 76yo F with a PMH of type 2 diabetes, hypertension, history of CVA, trigeminal neuralgia, history of tobacco use, sleep apnea with on BiPAP and oxygen, COPD and other medical problems listed below who presents after a fall at home. -Found to have a laceration on the outer aspect of left side of her head; sutured in the ED. -Right hand x-ray showed fifth proximal phalangeal fracture; orthopedic evaluated; recommended to maintain splint for 4 to 6 weeks and outpatient follow-up. Follow-up information provided at discharge. -CT facial bones showed depressed commuted fracture of right orbital floor; maxillofacial surgery saw the patient. Patient to follow-up with as outpatient. No BiPAP for now. Her aspirin was kept on hold till she sees medically low facial surgery -Patient was hypertensive throughout the hospitalization; was placed on amlodipine. Discussed with patient at discharge; patient will monitor her blood pressure and follow-up with her primary care doctor. She did not want to be started on new medication while she was hospitalized. -PT OT evaluation done; recommend home health with PT OT. Referral sent by case management. -Patient to follow-up with primary care doctor. Total Time Total Time Spent Total Time Spent (In Minutes): 35 Discharge Plan Discharge Items Patient Disposition: Home - Home Health Services Reason For Visit: HTN CRISIS Discharge Diagnosis: (1) Fall: (2) Facial laceration: (3) Fracture of inferior orbital wall: (4) Fracture of proximal phalanx of digit of right hand: 5) Hypertension Activity: Resume your previous activity Non-emergency contact: Primary Care Provider Call non-emergency contact if: you have any medication questions Follow-up/Referrals: Ferny Sr, [Primary Care Provider] - Diet: Carb Consistent or DM2 Addtl Attending Provider Instructions: You were admitted to the hospital after a fall. You are found to have a fracture of one of the fingers on your right hand; please follow the orthopedic instruction. Call the office for appointment. You were also found to have fractures of bones around your right eye. You will get a call from Dr. Navarrete's office for follow-up. Please stop your aspirin till you see him. Please follow-up with your primary care doctor. Please measure your blood pressure every day and take it to your doctor. Based on your blood pressure at home; changes in your medication could be made. Addtl Wet Primer Powder Blender Provider Instructions: Orthopedic instructions: Stay in the splint to the right small finger until follow-up in the office. Follow-up with Dr. Yang's PA (Edgard Mo) in 2 weeks for repeat x-rays to make sure there is been no further displacement. Please call the office to make an appointment for a time that works for you. Office number is [phone]. 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 2) Sleep with head elevated for the next 2 weeks and then slowly restart the Bi PAP with a small amount of pressure to see if she can tolerate her established Bi PAP pressure--we will restart the Bi PAP once i see her as an outpatient. You will receive a call from Dr. Ezra navarrete office for follow up. Pending Studies at Discharge: No Stand-Alone Forms: My [facility], Smoking Cessation, Virtual Emergency Department, Important Visit Information Medications and DC Order Prescriptions: Continued folic acid 1 mg tablet 1 mg PO DAILY Qty: 30 5RF Ozempic 1 mg/dose (2 mg/1.5 mL) pen injector 1 mg subcut WK oxycodone-acetaminophen [Percocet] 5-325 mg tablet 1 tab PO Q8H PRN (Reason: pain) Qty: 20 0RF gabapentin 300 mg capsule 300 mg PO .COMPLEX Qty: 270 3RF Rx Instructions: 1 cap po at 6pm and 2 caps po HS furosemide 40 mg tablet 40 mg PO BID Qty: 60 5RF Rx Instructions: TAKES QAM & LUNCH Lantus Solostar U-100 Insulin 100 unit/mL (3 mL) insulin pen 44 unit SUBCUT QPM atorvastatin 80 mg Tablet 80 mg PO DAILY montelukast 10 mg Tablet 10 mg PO HS azelastine-fluticasone 137-50 mcg/spray spray,non-aerosol 2 spray INTRANASAL HS fluticasone propionate [Flonase Allergy Relief] 50 mcg/actuation spray,suspension 1 spray INTRANASAL HS labetalol 200 mg tablet See Rx Instructions .ROUTE .COMPLEX Label Comments: 200mg at dinner and 100mg in the AM Rx Instructions: 200 mg orally; PER [facility] TAKES 100 MG QAM, THEN 200 MG QPM. Jardiance 25 mg tablet 25 mg PO QAM fexofenadine-pseudoephedrine [Teodora-D 24 Hour] 180-240 mg Tablet Extended Release 24 Hr 1 tab PO HS letrozole 2.5 mg Tablet 2.5 mg PO QPM cholecalciferol (vitamin D3) [Vitamin D3] 25 mcg (1,000 unit) Tablet 25 mcg PO DAILY sennosides-docusate sodium [Senna-S] 8.6-50 mg Tablet 1 - 2 tab-cap PO DAILY PRN (Reason: HIGH DOSE OF PERCOCET) cyanocobalamin (vitamin B-12) [Vitamin B-12] 1,000 mcg Tablet 1,000 mcg PO DAILY carbamazepine 200 mg tablet 200 mg PO TID Rx Instructions: TAKE WITH FOOD docusate sodium 100 mg Capsule 100 mg PO DAILY calcium carbonate [Calcium 500] 500 mg calcium (1,250 mg) Tablet,Chewable 500 mg PO DAILY lisinopril 40 mg tablet 40 mg PO QAM ezetimibe [Zetia] 10 mg Tablet 10 mg PO DAILY Simbrinza 1-0.2 % Drops,Suspension 1 drp OPHTHALMIC (EYE) QDL duloxetine 30 mg capsule,delayed release(DR/EC) 30 mg PO DAILY Discontinued aspirin 81 mg tablet,delayed release (DR/EC) 81 mg PO QAM Discharge Orders: Discharge Order (Routine); Ordered 05/16/22 Ordered By: Gabe Rivero Admission Data Admit Date/Time: 05/14/22 22:37 Attending Provider: Gabe Rivero Admit Provider: Jarod Ocasio Primary Care Provider: Ferny Sr Other Providers: Jarod Ocasio ; Ezra Navarrete Kevin W. ; Carleen Salgado ; Raji Driscoll ; Kerline Kessler ; Gregorio Tatum ; Katie Cui ; Devorah Cavanaugh ; Sienna Felix ; Puneet Pina ; Luwdin Finley ; Edgard Mo ; Edgard Yang Other Interventions: Discharge Summary Assessment (RN) Last Done: 05/16/22 15:54
== END 2022-05-16 16:26 | disposition home health service (06) | DRG 914 ==
LOC: ED 15:28 → 2S 22:37

== ENCOUNTER 2022-11-08 19:51 | Inpatient (IN) ==
[2022-11-08 20:37] LABS: Basophils # (auto) 0.05 K/uL (0-0.2); Basophils % (auto) 0.4 %; Eosinophils % (auto) 1.5 %; Hematocrit (blood only) 40.9 % (37.0-47.0); Hemoglobin 13.7 g/dl (12.0-16.0); Immature Granulocytes # (auto) 0.03 K/uL (0.01-0.20); Immature Granulocytes % (auto) 0.2 %; Lymphocytes # (auto) 2.06 K/uL (1.2-3.4); Lymphocytes % (auto) 15.6 %; Mean Corpuscular Hemoglobin 31.1 pg (25.0-34.0); Mean Corpuscular Hgb Conc 33.5 g/dL (32.0-36.0); Mean Platelet Volume 9.8 fL (9.4-12.4); Monocytes # (auto) 0.64 K/uL (0.11-0.59); Monocytes % (auto) 4.8 %; Neutrophils # (auto) 10.22 K/uL (1.40-6.50); Neutrophils % (auto) 77.5 %; Platelet Count 269 K/uL (130-400); RDW Standard Deviation 44.6 fL (36.4-46.3)
[2022-11-08] MEDS ORDERED: SODIUM CHLORIDE 0.9% 1000ML 1,000 ML IV ONE (20:57)
[2022-11-08] MEDS ORDERED: ONDANSETRON INJ 2 MG/ML 2 ML VIAL IV STA (20:57)
[2022-11-08 21:02] LABS: Alanine Aminotransferase 11 U/L (7-52); Albumin Globulin Ratio 1.3 (0.9-2); Albumin Level 4.1 gm/dl (3.4-5.0); Alkaline Phosphatase 145 U/L (34-104); Anion Gap 6 (3-11); BUN Creatinine Ratio 24.7 (10-20); Bilirubin,Total 0.3 mg/dl (0.2-1.0); Blood Urea Nitrogen 24 mg/dl (6-23); Calcium 9.6 mg/dl (8.6-10.3); Carbon Dioxide 32 mmol/L (21-32); Chloride 100 mmol/L (98-107); Creatinine Clr Calc Pharmacy 55.8 ml/min; Est GFR (African American) 65.8 ml/min; Est GFR (Non-African American) 56.7 ml/min; Globulin 3.2 gm/dl (2.5-4.0); Glucose 117 mg/dl (70-99(Fasting)); Lipase 49 U/L (11-82); Sodium 138 mmol/L (136-145); Total Protein 7.3 gm/dl (6.0-8.3)
--- NOTE | 2022-11-08 21:03 | Emergency Department Note ---
Impression & Plan Abdominal pain, acute, epigastric, Nausea & vomiting, Gastroparesis ED Provider Note NAME: ABBI MAGAÑA AGE: 76 SEX: F : 1945 ARRIVES VIA: Ambulance INFORMANT: Patient, ED PROVIDER(S): Faizan Cortez DO CHIEF COMPLAINT: Abdominal pain HPI: The patient is a 76-year-old female who presented to the emergency department for evaluation of abdominal pain. The patient arrived via triage. The patient states around 4:00 today she was lifting a box. She states that she felt a pulling sensation in her upper abdomen and into her back. She had nausea but no vomiting. She took her usual pain medication as well as Tums. She states this did not significantly relieve her pain. She denies having any chest pain. She denies having any difficulty breathing. She has no swelling in her legs. The patient states the pain began only this evening so she has not been seen by provider prior to coming emergency department. The patient denies having any fever. ROS: See above HPI for pertinent positives & negatives. A total of 10 systems reviewed and were otherwise negative. PAST MEDICAL HISTORY: See Below PAST SURGICAL HISTORY: See Below FAMILY HISTORY: See Below SOCIAL HISTORY: See Below HOME MEDICATIONS: See Below ALLERGIES: See Below VITALS: See Below PHYSICAL EXAMINATION: GENERAL: Patient is awake alert in no acute distress patient is resting comfortably and showing no signs of anxiety EYES: The conjunctivae are clear. The pupils are round and reactive. EARS, NOSE, MOUTH AND THROAT: The nose is without any evidence of any deformity. NECK: The neck is nontender and supple. RESPIRATORY: Normal respiratory effort is noted there is no evidence of wheezing rhonchi or rales CARDIOVASCULAR: Regular rate and rhythm noted there no murmurs rubs or gallops normal S1 normal S2. GASTROINTESTINAL: The abdomen is soft and mildly distended. There is epigastric tenderness to palpation. There is no specific guarding or rigidity. There was no pulsatile mass appreciated however the patient's body habitus may preclude this. BACK: No midline tenderness or or step-off noted range of motion in flexion extension as well as rotation no signs of muscle spasm noted MUSCULOSKELETAL/EXTREMITIES: There is no evidence of gross deformity full range of motion is noted in the hips and shoulders. SKIN: There is no obvious evidence of any rash. There are no petechiae, pallor or cyanosis noted. NEUROLOGIC: Patient is awake alert and oriented x3. Gait was steady. MEDICAL DECISION MAKING: The patient is a 76-year-old female who presented to the emergency department for an evaluation of abdominal pain. The patient had significant epigastric abdominal pain on physical exam. I discussed the patient's laboratory and radiographic studies with her. She was reevaluated multiple times. She was treated with IV fluids and IV pain medication. She had an episode of emesis after the CAT scan. I thought she would feel better because my interpretation of the CAT scan did reveal a large dilated gastric shadow and I thought she could have some degree of gastroparesis. She was not feeling much better. Her blood pressure was also managed with IV labetalol. Ultimately the patient was not feeling much better and I do not feel she would be a good candidate for outpatient treatment at this time. For this reason I [facility] T[facility] Nursing notes reviewed. Prior medical records reviewed Vital Signs: reviewed and remarkable for elevated blood pressure. Differential diagnosis: Etiologies such as appendicitis, diverticulitis, obstruction, inflammatory bowel disease, renal colic, PUD, biliary pathology, pancreatitis, mesenteric ischemia, aortic pathology, infections, genitourinary, UTI, perforated viscus, as well as others were entertained. ER treatment provided: See below Diagnostics interpreted by me: ECG: EKG was obtained in the emergency department. My interpretation is normal sinus rhythm at [address] segment abnormalities were noted in the lateral leads. This was compared to a tracing from May 14, 2022. No changes were noted. Cardiac Monitoring: An order was placed for continuous cardiac monitoring. The monitor shows a rate of 73 bpm with sinus rhythm. Laboratory studies: As stated above and show below. Imaging studies: See below. Radiographic imaging was reviewed by myself Consultation(s): I discussed this case with Dr. Ocasio who [facility]. Past Med/Surg History Medical History Anxiety and depression Asthma WELL CONTROLLED/ NO CURRENT RX FOR RESCUE INHALER Chronic diastolic (congestive) heart failure echo 12/2019 - EF 55-60%, grade I diastolic dysfunction CKD (chronic kidney disease) stage 3, GFR 30-59 ml/min Follows with S PCP and internal medicine Coronary artery calcification Dependent edema on diuretic, chronic per pt without change or worsening Diabetes mellitus, type 2 NIDDM Diabetic neuropathy B/L feet, legs Dyslipidemia Glaucoma ? IF OFFICIAL DX/ ELEVATED PRESSURES Hearing deficit Left ear - no hearing aids History of carotid stenosis s/p R/L carotid endarterectomy (2003) History of gastric ulcer > 40 yrs ago History of recent fall 05/2022. Hospitalized at [facility]. facial and finger fractures. HEALED. History of skin cancer HX: breast cancer R partial mastectomy and radiation, no chemo-denies limb restriction Hypertension controlled, stable per pt Polyneuropathy Pulmonary histoplasmosis Remote hx > chronic interstitial thickening and calcified granulomas noted on prior CXRs Sleep apnea BIPAP + 4L O2-compliant Stroke 2003 - intermittent vertigo and occasional right sided weakness Trigeminal neuralgia s/p trigeminal decompression (). On carbamazepine, follows with [facility] [place] [facility] (Dr. Jackson) Surgical History Fatty tumor "removed" H/O partial mastectomy R breast History of cataract surgery RT/LEFT History of cholecystectomy History of colonoscopy w/ polypectomy History of esophagogastroduodenoscopy (EGD) History of surgery Trigeminal decompression of 5th nerve History of surgical removal of ganglion cyst History of tonsillectomy and adenoidectomy History of tooth extraction History of total knee replacement RIGHT TKA LEFT TKA History of total shoulder replacement Right (11/14/17): Elective Glidescope #3 due to Grade 3 View and difficulty visualizing cords, ETT #7.0. Patient re-positioned twice. History of total shoulder replacement Left shoulder replacement (12/25/18): Grade 3 view (unable to read details regarding grade view on anesthesia records), Glidescope #3, ETT 7.5 + PNB at [facility] Hx of dilation and curettage S/P carotid endarterectomy HX R&L S/P lumpectomy, right breast With right axillary SLN biopsy on 06/06/[address] Goel Family History Father , age 96 of a stroke Coronary heart disease Stroke Mother , age 79 of an MD Myocardial infarction Brother Ankylosing spondylitis of site in spine Daughter No problems noted. Son No problems noted. 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 How many Children do You have: 1 Feels Safe at Home: Yes Diet: regular caffeine: Yes (4 cups/week) during the past year weight has: remained stable Assistive Devices: Cane, Glasses and Other Allergies Allergies Allergy/AdvReac Type Severity Reaction Status Date / Time clarithromycin AdvReac Intermediate Mouth Verified 11/08/22 21:41 burning Home Meds Home Medications Medication Instructions Recorded Confirmed atorvastatin 80 mg tablet 80 mg PO QDL 11/12/18 11/08/22 montelukast 10 mg tablet 10 mg PO HS 11/12/18 11/08/22 semaglutide 1 mg/dose (2 mg/1.5 1 mg subcut WK 04/18/20 11/08/22 mL) subcutaneous pen injector (Ozempic) azelastine-fluticasone 137 mcg-50 2 spray intranasal HS 07/04/21 11/08/22 mcg/spray nasal spray fluticasone propionate 50 2 spray intranasal HS 07/04/21 11/08/22 mcg/actuation nasal spray,suspension (Flonase Allergy Relief) labetalol 200 mg tablet 200 mg PO BID 07/04/21 11/08/22 cholecalciferol (vitamin D3) 25 25 mcg PO DAILY 11/16/21 11/08/22 mcg (1,000 unit) tablet (Vitamin D3) letrozole 2.5 mg tablet 2.5 mg PO QAM 11/16/21 11/08/22 sennosides 8.6 mg-docusate sodium 1 - 2 tab-cap PO DAILY PRN HIGH 05/14/22 11/08/22 50 mg tablet (Senna-S) DOSE OF PERCOCET ascorbic acid (vitamin C) 500 mg 500 mg PO QPM 06/12/22 11/08/22 capsule aspirin 81 mg chewable tablet 81 mg PO QAM 06/12/22 11/08/22 empagliflozin 25 mg tablet 25 mg PO QAM 06/12/22 11/08/22 (Jardiance) insulin glargine 100 unit/mL (3 34 unit subcut QPM 06/12/22 11/08/22 mL) subcutaneous pen (Lantus Solostar U-100 Insulin) lisinopril 40 mg tablet 40 mg PO QAM 06/12/22 11/08/22 potassium chloride 10 mEq 10 meq PO QAM 06/12/22 11/08/22 tablet,extended release mecobalamin (vitamin B12) 1,000 1,000 mcg PO DAILY 08/30/22 11/08/22 mcg disintegrating tablet,sublingual albuterol sulfate 90 mcg/actuation 2 puff inhalation QID PRN 11/08/22 11/08/22 aerosol inhaler Shortness Of Breath Or Wheezing calcium carbonate 200 mg calcium 600 mg PO DAILY 11/08/22 11/08/22 (500 mg) chewable tablet (Tums) docusate sodium 100 mg tablet 100 mg PO DAILY 11/08/22 11/08/22 ezetimibe 10 mg tablet (Zetia) 10 mg PO DAILY 11/08/22 11/08/22 fexofenadine 180 mg tablet 180 mg PO HS 11/08/22 11/08/22 gabapentin 300 mg capsule 300 mg PO TID 11/08/22 11/08/22 Previous Rx's Medication Instructions Recorded furosemide 40 mg tablet 40 mg PO BID #60 tabs 12/30/19 oxycodone-acetaminophen 5 mg-325 1 tab PO Q8H PRN pain #20 tabs 03/21/21 mg tablet (Percocet) carbamazepine 400 mg 400 mg PO BID #60 tabs 07/18/22 tablet,extended release,12 hr duloxetine 30 mg capsule,delayed 60 mg PO QPM #60 caps 10/01/22 release folic acid 1 mg tablet 1 mg PO DAILY #30 tabs 10/28/22 Results & Data (ED) Vital Signs Vital Signs - 24 hr 11/08/22 19:54 11/08/22 21:15 11/08/22 21:45 Temperature 36.2 C L 38 C H Temperature Source Temporal Artery Scan Axillary Pulse Rate 68 71 Pulse Rate from SpO2 Sensor Pulse Rhythm Respiratory Rate 18 Respiratory Effort / Characteristics Non-Labored Respiratory Depth Normal Blood Pressure 214/98 H Blood Pressure Mean 136 Pulse Oximetry 97 Oxygen Delivery Method Room Air Oxygen Flow Rate Sepsis Recent Fever Within 48 Hours No Sepsis New/Unexplained Change in Mental Status No Sepsis Action Taken by Nursing No Action Required 11/08/22 21:14 11/08/22 21:15 11/08/22 21:20 Temperature Temperature Source Pulse Rate 70 70 Pulse Rate from SpO2 Sensor 69 69 Pulse Rhythm Respiratory Rate 16 14 Respiratory Effort / Characteristics Respiratory Depth Blood Pressure 226/83 H Blood Pressure Mean 130 Pulse Oximetry 96 94 Oxygen Delivery Method Oxygen Flow Rate Sepsis Recent Fever Within 48 Hours Sepsis New/Unexplained Change in Mental Status Sepsis Action Taken by Nursing 11/08/22 21:30 11/08/22 21:33 11/08/22 21:47 Temperature Temperature Source Pulse Rate 72 73 Pulse Rate from SpO2 Sensor 73 Pulse Rhythm Respiratory Rate 12 10 L Respiratory Effort / Characteristics Respiratory Depth Blood Pressure 223/88 H Blood Pressure Mean 133 Pulse Oximetry 91 Oxygen Delivery Method Oxygen Flow Rate Sepsis Recent Fever Within 48 Hours Sepsis New/Unexplained Change in Mental Status Sepsis Action Taken by Nursing 11/08/22 21:53 11/08/22 21:58 11/08/22 21:58 Temperature Temperature Source Pulse Rate 77 75 Pulse Rate from SpO2 Sensor 77 76 Pulse Rhythm Respiratory Rate 7 L 15 Respiratory Effort / Characteristics Respiratory Depth Blood Pressure 230/91 H Blood Pressure Mean 137 Pulse Oximetry 93 Oxygen Delivery Method Oxygen Flow Rate Sepsis Recent Fever Within 48 Hours Sepsis New/Unexplained Change in Mental Status Sepsis Action Taken by Nursing 11/08/22 22:00 11/08/22 22:01 11/08/22 22:01 Temperature Temperature Source Pulse Rate 77 75 Pulse Rate from SpO2 Sensor 74 75 Pulse Rhythm Respiratory Rate 18 21 Respiratory Effort / Characteristics Respiratory Depth Blood Pressure 232/93 H Blood Pressure Mean 139 Pulse Oximetry 91 94 Oxygen Delivery Method Oxygen Flow Rate Sepsis Recent Fever Within 48 Hours Sepsis New/Unexplained Change in Mental Status Sepsis Action Taken by Nursing 11/08/22 22:10 11/08/22 22:11 11/08/22 22:11 Temperature Temperature Source Pulse Rate 74 74 Pulse Rate from SpO2 Sensor 74 77 Pulse Rhythm Respiratory Rate 17 17 Respiratory Effort / Characteristics Respiratory Depth Blood Pressure 224/101 H Blood Pressure Mean 142 Pulse Oximetry 94 Oxygen Delivery Method Oxygen Flow Rate Sepsis Recent Fever Within 48 Hours Sepsis New/Unexplained Change in Mental Status Sepsis Action Taken by Nursing 11/08/22 22:19 11/08/22 22:19 11/08/22 22:20 Temperature Temperature Source Pulse Rate 74 73 Pulse Rate from SpO2 Sensor 73 Pulse Rhythm Respiratory Rate 16 13 Respiratory Effort / Characteristics Respiratory Depth Blood Pressure 243/114 H Blood Pressure Mean 157 Pulse Oximetry 97 Oxygen Delivery Method Nasal Cannula Oxygen Flow Rate 2 Sepsis Recent Fever Within 48 Hours Sepsis New/Unexplained Change in Mental Status Sepsis Action Taken by Nursing 11/08/22 22:30 11/08/22 22:30 11/08/22 22:40 Temperature Temperature Source Pulse Rate 73 74 Pulse Rate from SpO2 Sensor 73 Pulse Rhythm Respiratory Rate 16 Respiratory Effort / Characteristics Respiratory Depth Blood Pressure 248/93 H Blood Pressure Mean 144 Pulse Oximetry 97 Oxygen Delivery Method Nasal Cannula Oxygen Flow Rate 2 Sepsis Recent Fever Within 48 Hours Sepsis New/Unexplained Change in Mental Status Sepsis Action Taken by Nursing 11/08/22 23:48 Temperature Temperature Source Pulse Rate 73 Pulse Rate from SpO2 Sensor Pulse Rhythm Regular Respiratory Rate 14 Respiratory Effort / Characteristics Respiratory Depth Blood Pressure Blood Pressure Mean Pulse Oximetry 95 Oxygen Delivery Method Nasal Cannula Oxygen Flow Rate 4 Sepsis Recent Fever Within 48 Hours Sepsis New/Unexplained Change in Mental Status Sepsis Action Taken by Shelter Medications Current Medication List: was personally reviewed by me Laboratory Data Attestation: I reviewed the patient's lab results. 11/08/22 20:05 11/08/22 20:05 Lab Results 11/08/22 11/08/22 11/08/22 Range/Units 20:05 20:05 20:50 WBC 13.20 H (4.8-10.8) K/ul RBC 4.40 (4.20-5.40) M/uL Hgb 13.7 (12.0-16.0) g/dl Hct 40.9 (37.0-47.0) % MCV 93.0 (80.0-100.0) fL MCH 31.1 (25.0-34.0) pg MCHC 33.5 (32.0-36.0) g/dL RDW Std Deviation 44.6 (36.4-46.3) fL RDW Coeff of Mono 13.0 (11.5-14.5) % Plt Count 269 (130-400) K/uL MPV 9.8 (9.4-12.4) fL Immature Gran % (Auto) 0.2 % Neut % (Auto) 77.5 % Lymph % (Auto) 15.6 % [place] % (Auto) 4.8 % Eos % (Auto) 1.5 % Baso % (Auto) 0.4 % Neut # (Auto) 10.22 H (1.40-6.50) K/uL Lymph # (Auto) 2.06 (1.2-3.4) K/uL [place] # (Auto) 0.64 H (0.11-0.59) K/uL Eos # (Auto) 0.20 (0-0.50) K/uL Baso # (Auto) 0.05 (0-0.2) K/uL Immature Gran # (Auto) 0.03 (0.01-0.20) K/uL Sodium 138 (136-145) mmol/L Potassium TNP Chloride 100 (98-107) mmol/L Carbon Dioxide 32 (21-32) mmol/L Anion Gap 6 (3-11) BUN 24 H (6-23) mg/dl Creatinine 0.97 (0.6-1.2) mg/dl Est Cr Clr Drug Dosing 55.8 ml/min Est GFR ( Amer) 65.8 ml/min Est GFR (Non-Af Amer) 56.7 ml/min BUN/Creatinine Ratio 24.7 H (10-20) Glucose 117 H (70-99(Fasting)) mg/dl Calcium 9.6 (8.6-10.3) mg/dl Total Bilirubin 0.3 (0.2-1.0) mg/dl AST TNP ALT 11 (7-52) U/L Alkaline Phosphatase 145 H (34-104) U/L Troponin I High Sens (0-14) pg/ml Total Protein 7.3 (6.0-8.3) gm/dl Albumin 4.1 (3.4-5.0) gm/dl Globulin 3.2 (2.5-4.0) gm/dl Albumin/Globulin Ratio 1.3 (0.9-2) Lipase 49 (11-82) U/L Urine Color Yellow Urine Appearance Clear (Clear) Urine pH 8.5 H (4.5-7.5) Ur Specific [place] 1.014 (1.000-1.030) Urine Protein Trace H (Negative) Urine Glucose (UA) 2+ H (Negative) Urine Ketones Negative (Negative) Urine Blood Negative (Negative) Urine Nitrite Negative (Negative) Urine Bilirubin Negative (Negative) Urine Urobilinogen Negative (Negative) Ur Leukocyte Esterase Negative (Negative) Urine WBC (Auto) 1-5 (0-5) /hpf Urine RBC (Auto) 0-4 (0-4) /hpf U Hyaline Cast (Auto) 0 (0-5) /lpf U Epithel Cells (Auto) 10-20 H (0-5) /lpf Urine Bacteria (Auto) Negative (Negative) Carbamazepine (4-12) mcg/ml 11/08/22 11/08/22 11/08/22 Range/Units 21:25 22:34 22:34 WBC (4.8-10.8) K/ul RBC (4.20-5.40) M/uL Hgb (12.0-16.0) g/dl Hct (37.0-47.0) % MCV (80.0-100.0) fL MCH (25.0-34.0) pg MCHC (32.0-36.0) g/dL RDW Std Deviation (36.4-46.3) fL RDW Coeff of Mono (11.5-14.5) % Plt Count (130-400) K/uL MPV (9.4-12.4) fL Immature Gran % (Auto) % Neut % (Auto) % Lymph % (Auto) % [place] % (Auto) % Eos % (Auto) % Baso % (Auto) % Neut # (Auto) (1.40-6.50) K/uL Lymph # (Auto) (1.2-3.4) K/uL [place] # (Auto) (0.11-0.59) K/uL Eos # (Auto) (0-0.50) K/uL Baso # (Auto) (0-0.2) K/uL Immature Gran # (Auto) (0.01-0.20) K/uL Sodium (136-145) mmol/L Potassium 4.6 Chloride (98-107) mmol/L Carbon Dioxide (21-32) mmol/L Anion Gap (3-11) BUN (6-23) mg/dl Creatinine (0.6-1.2) mg/dl Est Cr Clr Drug Dosing ml/min Est GFR ( Amer) ml/min Est GFR (Non-Af Amer) ml/min BUN/Creatinine Ratio (10-20) Glucose (70-99(Fasting)) mg/dl Calcium (8.6-10.3) mg/dl Total Bilirubin (0.2-1.0) mg/dl AST 17 ALT (7-52) U/L Alkaline Phosphatase (34-104) U/L Troponin I High Sens 13.4 (0-14) pg/ml Total Protein (6.0-8.3) gm/dl Albumin (3.4-5.0) gm/dl Globulin (2.5-4.0) gm/dl Albumin/Globulin Ratio (0.9-2) Lipase (11-82) U/L Urine Color Urine Appearance (Clear) Urine pH (4.5-7.5) Ur Specific [place] (1.000-1.030) Urine Protein (Negative) Urine Glucose (UA) (Negative) Urine Ketones (Negative) Urine Blood (Negative) Urine Nitrite (Negative) Urine Bilirubin (Negative) Urine Urobilinogen (Negative) Ur Leukocyte Esterase (Negative) Urine WBC (Auto) (0-5) /hpf Urine RBC (Auto) (0-4) /hpf U Hyaline Cast (Auto) (0-5) /lpf U Epithel Cells (Auto) (0-5) /lpf Urine Bacteria (Auto) (Negative) Carbamazepine 13.7 H* (4-12) mcg/ml Administered Medications Fentanyl Citrate (Fentanyl Citrate Pf 100 Mcg/2 Ml Vial) 50 mcg IV Q15M PRN PRN Reason: Pain Stop: 11/22/22 20:56 Last Admin: 11/08/22 22:03 Dose: 50 mcg Documented By: Admin: 11/08/22 21:07 Dose: 50 mcg Documented By: CODY Hydromorphone HCl (Hydromorphone Inj 1 Mg/Ml Syringe) 1 mg IV Q15M PRN PRN Reason: Pain Stop: 11/22/22 23:21 Last Admin: 11/08/22 23:31 Dose: 1 mg Documented By: BS Discontinued Medications Sodium Chloride (Nss 1000ml) 1,000 mls @ 999 mls/hr IV .Q1H1M ONE Stop: 11/08/22 21:57 Last Admin: 11/08/22 21:06 Dose: 999 mls/hr Documented By: CODY Ioversol (Optiray 320 100ml) 86 ml IV ONCE ONE Stop: 11/08/22 21:41 Last Admin: 11/08/22 21:41 Dose: 86 ml Documented By: JAYDE Labetalol HCl (Labetalol Hcl Iv 5 Mg/Ml 20ml) 10 mg IV NOW STA Stop: 11/08/22 21:57 Last Admin: 11/08/22 21:58 Dose: 10 mg Documented By: CODY Co-signed By: CHEO Labetalol HCl (Labetalol Hcl Iv 5 Mg/Ml 20ml) Confirm Administered Dose 5 mg IV .STK-MED ONE Stop: 11/08/22 21:59 Last Admin: 11/08/22 22:46 Dose: Not Given Documented By: CODY Labetalol HCl (Labetalol Hcl Iv 5 Mg/Ml 20ml) 10 mg IV NOW STA Stop: 11/08/22 22:57 Last Admin: 11/08/22 22:57 Dose: 10 mg Documented By: CODY Co-signed By: CHEO Ondansetron HCl (Ondansetron Inj 2 Mg/Ml 2 Ml Vial) 4 mg IV NOW STA Stop: 11/08/22 20:58 Last Admin: 11/08/22 21:07 Dose: 4 mg Documented By: CODY Imaging Data Attestation: I personally reviewed and interpreted this imaging study as follows: My Impression: CT of the abdomen and pelvis was obtained in the emergency department. My interpretation is no definite obstruction, no free air, dilated gastric shadow, final report below. Radiologist's Impression: Abdomen/Pelvis CT 11/08/22 20:57 Exam(s): CT ABDOMEN + PELVIS With Contrast IV Amt: 86ml EXAM: CT Abdomen and Pelvis With Intravenous Contrast CLINICAL HISTORY: Reason for exam: upper pain. TECHNIQUE: Axial computed tomography images of the abdomen and pelvis with intravenous contrast. CTDI is 21.86 mGy and DLP is 1149.92 mGy-cm. Automated exposure control was utilized for the study. A dose lowering technique was utilized adhering to the principles of ALARA. CONTRAST: Patient received 86ml of IV contrast COMPARISON: No relevant prior studies available. FINDINGS: Lung bases: Unremarkable. No mass. No consolidation. ABDOMEN: Liver: Unremarkable. No mass. Gallbladder and bile ducts: Cholecystectomy. No ductal dilation. Pancreas: Unremarkable. No mass. No ductal dilation. Spleen: Calcified splenic granulomas. Adrenals: Unremarkable. No mass. Kidneys and ureters: No hydronephrosis or delayed nephrogram. There is excretion of contrast in the collecting systems. Stomach and bowel: Unremarkable. No acute diverticulitis. No small bowel obstruction. No free air. PELVIS: Appendix: Normal appendix. Bladder: Decompressed urinary bladder. Reproductive: Unremarkable as visualized. ABDOMEN and PELVIS: Intraperitoneal space: See above. Bones/joints: Degenerative changes of the spine. No acute fracture. No dislocation. Soft tissues: Unremarkable. Vasculature: Atherosclerotic changes of the aorta. No abdominal aortic aneurysm. Lymph nodes: Unremarkable. No enlarged lymph nodes. IMPRESSION: 1. No acute diverticulitis. No small bowel obstruction. No free air. 2. Normal appendix. 3. Cholecystectomy. Electronically signed by: Dallin Nails MD 11/08/22 23:27 PM Discharge Plan Visit Data Chief Complaint: Abdominal Pain Stated Complaint: Nausea ED Provider: Faizan Cortez Discharge Problem: Abdominal pain, acute, epigastric, Nausea & vomiting, Gastroparesis Patient Disposition: Being Evaluated by Hospitalist Forms Stand Alone Forms: My [facility] [employer] Prescriptions Prescriptions: No Action aspirin 81 mg tablet,chewable 81 mg PO QAM ascorbic acid (vitamin C) 500 mg capsule 500 mg PO QPM Jardiance 25 mg tablet 25 mg PO QAM potassium chloride 10 mEq tablet extended release 10 meq PO QAM carbamazepine 400 mg tablet extended release 12 hr 400 mg PO BID Qty: 60 5RF duloxetine 30 mg capsule,delayed release(DR/EC) 60 mg PO QPM Qty: 60 2RF folic acid 1 mg tablet 1 mg PO DAILY Qty: 30 1RF Ozempic 1 mg/dose (2 mg/1.5 mL) pen injector 1 mg subcut WK Rx Instructions: SUNDAYS oxycodone-acetaminophen [Percocet] 5-325 mg tablet 1 tab PO Q8H PRN (Reason: pain) Qty: 20 0RF furosemide 40 mg tablet 40 mg PO BID Qty: 60 5RF Rx Instructions: TAKES QAM & LUNCH Lantus Solostar U-100 Insulin 100 unit/mL (3 mL) insulin pen 34 unit SUBCUT QPM atorvastatin 80 mg Tablet 80 mg PO QDL montelukast 10 mg Tablet 10 mg PO HS azelastine-fluticasone 137-50 mcg/spray spray,non-aerosol 2 spray INTRANASAL HS fluticasone propionate [Flonase Allergy Relief] 50 mcg/actuation spray,suspen misa 2 spray INTRANASAL HS labetalol 200 mg tablet 200 mg PO BID letrozole 2.5 mg Tablet 2.5 mg PO QAM cholecalciferol (vitamin D3) [Vitamin D3] 25 mcg (1,000 unit) Tablet 25 mcg PO DAILY sennosides-docusate sodium [Senna-S] 8.6-50 mg Tablet 1 - 2 tab-cap PO DAILY PRN (Reason: HIGH DOSE OF PERCOCET) lisinopril 40 mg tablet 40 mg PO QAM mecobalamin (vitamin B12) 1,000 mcg tablet,disintegrating 1,000 mcg PO DAILY Rx Instructions: Place 1 tablet under the tongue and allow to dissolve for at least 30 secs before swallowing. fexofenadine [Teodora] 180 mg Tablet 180 mg PO HS calcium carbonate [Tums] 200 mg calcium (500 mg) Tablet,Chewable 600 mg PO DAILY albuterol sulfate 90 mcg/actuation HFA aerosol inhaler 2 puff INHALATION QID PRN (Reason: Shortness Of Breath Or Wheezing) docusate sodium 100 mg Tablet 100 mg PO DAILY ezetimibe [Zetia] 10 mg Tablet 10 mg PO DAILY gabapentin 300 mg capsule 300 mg PO TID Referrals Referrals: Ferny Sr DO [Primary Care Provider] -
[2022-11-08 21:07] LABS: Appearance Urine Clear (Clear); Bacteria Urine Automated Negative (Negative); Bilirubin Urine Negative (Negative); Blood Urine Negative (Negative); Cast Urine Automated 0 /lpf (0-5); Color Urine Yellow; Glucose Urine UA 2+ (Negative); Ketones Urine Negative (Negative); Leukocyte Esterase Urine Negative (Negative); Nitrite Urine Negative (Negative); RBC Urine Automated 0-4 /hpf (0-4); Specific Gravity Urine 1.014 (1.000-1.030); Urobilinogen Urine Negative (Negative); pH Urine 8.5 (4.5-7.5)
[2022-11-08] MEDS: fentaNYL citrate PF 100 MCG/2 ML VIAL IV PRN ×2 (21:07→22:03)
[2022-11-08 21:08] LABS: Protein Urine Trace (Negative)
[2022-11-08] MEDS ORDERED: OPTIRAY 320 100ml IV ONE (21:40)
[2022-11-08] MEDS ORDERED: LABETALOL HCL IV 5 MG/ML 20ML IV STA ×2 (21:56→22:56)
[2022-11-08] MEDS ORDERED: LABETALOL HCL IV 5 MG/ML 20ML IV ONE (21:58)
[2022-11-08 21:59] LABS: Potassium 4.6 mmol/L (3.5-5.1)
[2022-11-08 23:16] LABS: Troponin I High Sensitivity 13.4 pg/ml (0-14)
[2022-11-08] MEDS ORDERED: HYDROmorphone INJ 1 MG/ML SYRINGE IV PRN (23:22)
--- NOTE | 2022-11-08 23:28 | CT Scan Report ---
Exam(s): CT ABDOMEN + PELVIS With Contrast IV Amt: 86ml EXAM: CT Abdomen and Pelvis With Intravenous Contrast CLINICAL HISTORY: Reason for exam: upper pain. TECHNIQUE: Axial computed tomography images of the abdomen and pelvis with intravenous contrast. CTDI is 21.86 mGy and DLP is 1149.92 mGy-cm. Automated exposure control was utilized for the study. A dose lowering technique was utilized adhering to the principles of ALARA. CONTRAST: Patient received 86ml of IV contrast COMPARISON: No relevant prior studies available. FINDINGS: Lung bases: Unremarkable. No mass. No consolidation. ABDOMEN: Liver: Unremarkable. No mass. Gallbladder and bile ducts: Cholecystectomy. No ductal dilation. Pancreas: Unremarkable. No mass. No ductal dilation. Spleen: Calcified splenic granulomas. Adrenals: Unremarkable. No mass. Kidneys and ureters: No hydronephrosis or delayed nephrogram. There is excretion of contrast in the collecting systems. Stomach and bowel: Unremarkable. No acute diverticulitis. No small bowel obstruction. No free air. PELVIS: Appendix: Normal appendix. Bladder: Decompressed urinary bladder. Reproductive: Unremarkable as visualized. ABDOMEN and PELVIS: Intraperitoneal space: See above. Bones/joints: Degenerative changes of the spine. No acute fracture. No dislocation. Soft tissues: Unremarkable. Vasculature: Atherosclerotic changes of the aorta. No abdominal aortic aneurysm. Lymph nodes: Unremarkable. No enlarged lymph nodes. IMPRESSION: 1. No acute diverticulitis. No small bowel obstruction. No free air. 2. Normal appendix. 3. Cholecystectomy. Electronically signed by: Dallin Nails MD 11/08/22 23:27 PM
[2022-11-08] MEDS ORDERED: ACETAMINOPHEN 1,000 MG/100 ML VIAL IV STA (23:45)
[2022-11-09] MEDS ORDERED: hydrALAZINE HCL 20 MG/ML VIAL IV STA (00:17)
--- NOTE | 2022-11-09 00:17 | History & Physical Report ---
Date of Service November 09, 2022 Assessment & Plan (1) Hypertensive crisis: Plan: Secondary to uncontrolled abdominal pain Enteritis versus muscular pain given recent exertion chronic diastolic heart failure (EF 55 to 60%, DSE 2021), patient on the dry side with note of ketonuria hx CAD/CVA/PVD as per records hyperlipidemia, on statin Rx hx COPD, CHAZ on BiPAP, lung status at baseline R breast cancer status post surgery/radiation on Letrozole DM2, insulin requiring, well-controlled as of recent hemoglobin A1c of 5.3 last July 2022 Supratherapeutic carbamazepine level, hx trigeminal neuralgia past tobacco abuse PCU Analgesia Initiate amlodipine if BP still uncontrolled Basal bolus insulin, ISS BG goal 1 10-1 40, carb count coverage Hold carbamazepine for now, recheck level in a.m. DVT prophylaxis. Lovenox subcu Full code Text document was generated using [email or web address] voice recognition software. It may contain grammatical or spelling errors. Kindly contact undersigned for clarification of any documentation item in question. History of Present Illness Chief Complaint: Abdominal pain Primary Care Provider: Ferny Sr, History obtained from patient and records. Medical history significant for chronic diastolic heart failure (EF 55 to 60%, DSE 2021), CAD/CVA as per records, PVD status post surgery, HTN, hyperlipidemia, COPD, CHAZ on BiPAP, R breast cancer status post surgery/radiation on Letrozole, DM2, insulin requiring, hx trigeminal neuralgia on carbamazepine, past tobacco abuse. Last confinement May 2022 for uncontrolled hypertension, traumatic facial fracture, right hand phalangeal fracture secondary to fall. This afternoon, patient noted achy right-sided abdominal pain into her back somewhat worse with motion. Subsequent nausea, emesis. No diarrhea. No dysuria. Patient denies chest pain, SOB, headache symptoms. Patient recalls helping her lift a jar of water from the ground 2 days ago. SBP upon arrival at the ER 220s. 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 Allergies Allergy/AdvReac Type Severity Reaction Status Date / Time clarithromycin AdvReac Intermediate Mouth Verified 11/08/22 21:41 burning Home Medications Medication Instructions Recorded Confirmed Type atorvastatin 80 mg tablet 80 mg PO QDL 11/12/18 11/08/22 History montelukast 10 mg tablet 10 mg PO HS 11/12/18 11/08/22 History furosemide 40 mg tablet 40 mg PO BID #60 tabs 12/30/19 11/08/22 Rx semaglutide 1 mg/dose (2 mg/1.5 1 mg subcut WK 04/18/20 11/08/22 History mL) subcutaneous pen injector (Ozempic) oxycodone-acetaminophen 5 mg-325 1 tab PO Q8H PRN pain #20 tabs 03/21/21 11/08/22 Rx mg tablet (Percocet) azelastine-fluticasone 137 mcg-50 2 spray intranasal HS 07/04/21 11/08/22 History mcg/spray nasal spray fluticasone propionate 50 2 spray intranasal HS 07/04/21 11/08/22 History mcg/actuation nasal spray,suspension (Flonase Allergy Relief) labetalol 200 mg tablet 200 mg PO BID 07/04/21 11/08/22 History cholecalciferol (vitamin D3) 25 25 mcg PO DAILY 11/16/21 11/08/22 History mcg (1,000 unit) tablet (Vitamin D3) letrozole 2.5 mg tablet 2.5 mg PO QAM 11/16/21 11/08/22 History sennosides 8.6 mg-docusate sodium 1 - 2 tab-cap PO DAILY PRN HIGH 05/14/22 11/08/22 History 50 mg tablet (Senna-S) DOSE OF PERCOCET ascorbic acid (vitamin C) 500 mg 500 mg PO QPM 06/12/22 11/08/22 History capsule aspirin 81 mg chewable tablet 81 mg PO QAM 06/12/22 11/08/22 History empagliflozin 25 mg tablet 25 mg PO QAM 06/12/22 11/08/22 History (Jardiance) insulin glargine 100 unit/mL (3 34 unit subcut QPM 06/12/22 11/08/22 History mL) subcutaneous pen (Lantus Solostar U-100 Insulin) lisinopril 40 mg tablet 40 mg PO QAM 06/12/22 11/08/22 History potassium chloride 10 mEq 10 meq PO QAM 06/12/22 11/08/22 History tablet,extended release carbamazepine 400 mg 400 mg PO BID #60 tabs 07/18/22 11/08/22 Rx tablet,extended release,12 hr mecobalamin (vitamin B12) 1,000 1,000 mcg PO DAILY 08/30/22 11/08/22 History mcg disintegrating tablet,sublingual duloxetine 30 mg capsule,delayed 60 mg PO QPM #60 caps 10/01/22 11/08/22 Rx release folic acid 1 mg tablet 1 mg PO DAILY #30 tabs 10/28/22 11/08/22 Rx albuterol sulfate 90 mcg/actuation 2 puff inhalation QID PRN 11/08/22 11/08/22 History aerosol inhaler Shortness Of Breath Or Wheezing calcium carbonate 200 mg calcium 600 mg PO DAILY 11/08/22 11/08/22 History (500 mg) chewable tablet (Tums) docusate sodium 100 mg tablet 100 mg PO DAILY 11/08/22 11/08/22 History ezetimibe 10 mg tablet (Zetia) 10 mg PO DAILY 11/08/22 11/08/22 History fexofenadine 180 mg tablet 180 mg PO HS 11/08/22 11/08/22 History gabapentin 300 mg capsule 300 mg PO TID 11/08/22 11/08/22 History Past Med/Surg History Medical History Anxiety and depression Asthma WELL CONTROLLED/ NO CURRENT RX FOR RESCUE INHALER Chronic diastolic (congestive) heart failure echo 12/2019 - EF 55-60%, grade I diastolic dysfunction CKD (chronic kidney disease) stage 3, GFR 30-59 ml/min Follows with S PCP and internal medicine Coronary artery calcification Dependent edema on diuretic, chronic per pt without change or worsening Diabetes mellitus, type 2 NIDDM Diabetic neuropathy B/L feet, legs Dyslipidemia Glaucoma ? IF OFFICIAL DX/ ELEVATED PRESSURES Hearing deficit Left ear - no hearing aids History of carotid stenosis s/p R/L carotid endarterectomy (2003) History of gastric ulcer > 40 yrs ago History of recent fall 05/2022. Hospitalized at [facility]. facial and finger fractures. HEALED. History of skin cancer HX: breast cancer R partial mastectomy and radiation, no chemo-denies limb restriction Hypertension controlled, stable per pt Polyneuropathy Pulmonary histoplasmosis Remote hx > chronic interstitial thickening and calcified granulomas noted on prior CXRs Sleep apnea BIPAP + 4L O2-compliant Stroke 2003 - intermittent vertigo and occasional right sided weakness Trigeminal neuralgia s/p trigeminal decompression (). On carbamazepine, follows with [facility] [place] (Dr. Jackson) Surgical History Fatty tumor "removed" H/O partial mastectomy R breast History of cataract surgery RT/LEFT History of cholecystectomy History of colonoscopy w/ polypectomy History of esophagogastroduodenoscopy (EGD) History of surgery Trigeminal decompression of 5th nerve History of surgical removal of ganglion cyst History of tonsillectomy and adenoidectomy History of tooth extraction History of total knee replacement RIGHT TKA LEFT TKA History of total shoulder replacement Right (11/14/17): Elective Glidescope #3 due to Grade 3 View and difficulty visualizing cords, ETT #7.0. Patient re-positioned twice. History of total shoulder replacement Left shoulder replacement (12/25/18): Grade 3 view (unable to read details regarding grade view on anesthesia records), Glidescope #3, ETT 7.5 + PNB at [facility] Hx of dilation and curettage S/P carotid endarterectomy HX R&L S/P lumpectomy, right breast With right axillary SLN biopsy on 06/06/[address] Goel Family History Father , age 96 of a stroke Coronary heart disease Stroke Mother , age 79 of an PR Myocardial infarction Brother Ankylosing spondylitis of site in spine Daughter No problems noted. Son No problems noted. 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 How many Children do You have: 1 Other Information That Helps Us Care for You: No Feels Safe at Home: Yes Safety Concerns: Feels Safe At This Time Diet: regular caffeine: Yes (4 cups/week) during the past year weight has: remained stable Assistive Devices: BiPap, Cane, Glasses, Oxygen - at Night and Walker Review of Systems Review of Systems: As per HPI, all other systems reviewed and negative Physical Exam Physical Exam: GENERAL: Slightly uncomfortable, obese, pleasant, no respiratory distress SKIN: Normal color, warm HEENT: [place] palpebral conjunctivae, no ptosis, dry buccal mucosa, nasal cannula in place NECK : Supple, short neck, no tenderness CHEST : Decreased breath sounds, no tenderness HEART : RRR, no obvious murmurs ABDOMEN: Some distention, right-sided abdominal tenderness EXTREMITIES : Bilateral LE swelling, no LE tenderness, no other conspicuous deformities noted NEUROLOGIC : Coherent, no facial asymmetry, no other gross focality Results & Data Results & Data Vital Signs (Past 12 Hours) Vital Signs Temp Pulse Resp BP Pulse Ox O2 Del Method O2 Flow Rate 11/09/22 00:01 70 17 227/108 H 99 11/09/22 00:00 76 13 220/100 H 94 11/08/22 23:31 73 18 98 11/08/22 23:30 73 14 96 11/08/22 23:19 74 18 224/89 H 96 11/08/22 23:01 76 14 218/99 H 97 11/08/22 23:48 73 14 95 Nasal Cannula 4 11/08/22 22:40 74 16 97 Nasal Cannula 2 11/08/22 22:30 73 11/08/22 22:30 248/93 H 11/08/22 22:20 73 13 97 Nasal Cannula 2 11/08/22 22:19 243/114 H 11/08/22 22:19 74 16 11/08/22 22:11 224/101 H 11/08/22 22:11 74 17 94 11/08/22 22:10 74 17 11/08/22 22:01 232/93 H 11/08/22 22:01 75 21 94 11/08/22 22:00 77 18 91 11/08/22 21:58 75 15 93 11/08/22 21:58 230/91 H 11/08/22 21:53 77 7 L 11/08/22 21:47 223/88 H 11/08/22 21:33 73 10 L 91 11/08/22 21:30 72 12 11/08/22 21:20 70 14 94 11/08/22 21:15 70 16 96 11/08/22 21:14 226/83 H 11/08/22 21:45 38 C H 11/08/22 21:15 71 11/08/22 19:54 36.2 C L 68 18 214/98 H 97 Room Air Laboratory Results Laboratory Results WBC 13.20 K/ul (4.8-10.8) H 11/08/22 20:05 RBC 4.40 M/uL (4.20-5.40) 11/08/22 20:05 Hgb 13.7 g/dl (12.0-16.0) 11/08/22 20:05 Hct 40.9 % (37.0-47.0) 11/08/22 20:05 MCV 93.0 fL (80.0-100.0) 11/08/22 20:05 MCH 31.1 pg (25.0-34.0) 11/08/22 20:05 MCHC 33.5 g/dL (32.0-36.0) 11/08/22 20:05 RDW Std Deviation 44.6 fL (36.4-46.3) 11/08/22 20:05 RDW Coeff of Mono 13.0 % (11.5-14.5) 11/08/22 20:05 Plt Count 269 K/uL (130-400) 11/08/22 20:05 MPV 9.8 fL (9.4-12.4) 11/08/22 20:05 Immature Gran % (Auto) 0.2 % 11/08/22 20:05 Neut % (Auto) 77.5 % 11/08/22 20:05 Lymph % (Auto) 15.6 % 11/08/22 20:05 [place] % (Auto) 4.8 % 11/08/22 20:05 Eos % (Auto) 1.5 % 11/08/22 20:05 Baso % (Auto) 0.4 % 11/08/22 20:05 Neut # (Auto) 10.22 K/uL (1.40-6.50) H 11/08/22 20:05 Lymph # (Auto) 2.06 K/uL (1.2-3.4) 11/08/22 20:05 [place] # (Auto) 0.64 K/uL (0.11-0.59) H 11/08/22 20:05 Eos # (Auto) 0.20 K/uL (0-0.50) 11/08/22 20:05 Baso # (Auto) 0.05 K/uL (0-0.2) 11/08/22 20:05 Immature Gran # (Auto) 0.03 K/uL (0.01-0.20) 11/08/22 20:05 Sodium 138 mmol/L (136-145) 11/08/22 20:05 Potassium 4.6 mmol/L (3.5-5.1) 11/08/22 21:25 Chloride 100 mmol/L (98-107) 11/08/22 20:05 Carbon Dioxide 32 mmol/L (21-32) 11/08/22 20:05 Anion Gap 6 (3-11) 11/08/22 20:05 BUN 24 mg/dl (6-23) H 11/08/22 20:05 Creatinine 0.97 mg/dl (0.6-1.2) 11/08/22 20:05 Est Cr Clr Drug Dosing 55.8 ml/min 11/08/22 20:05 Est GFR ( Amer) 65.8 ml/min 11/08/22 20:05 Est GFR (Non-Af Amer) 56.7 ml/min 11/08/22 20:05 BUN/Creatinine Ratio 24.7 (10-20) H 11/08/22 20:05 Glucose 117 mg/dl (70-99(Fasting)) H 11/08/22 20:05 Calcium 9.6 mg/dl (8.6-10.3) 11/08/22 20:05 Total Bilirubin 0.3 mg/dl (0.2-1.0) 11/08/22 20:05 AST 17 U/L (13-39) 11/08/22 21:25 ALT 11 U/L (7-52) 11/08/22 20:05 Alkaline Phosphatase 145 U/L (34-104) H 11/08/22 20:05 Troponin I High Sens 13.4 pg/ml (0-14) 11/08/22 22:34 Total Protein 7.3 gm/dl (6.0-8.3) 11/08/22 20:05 Albumin 4.1 gm/dl (3.4-5.0) 11/08/22 20:05 Globulin 3.2 gm/dl (2.5-4.0) 11/08/22 20:05 Albumin/Globulin Ratio 1.3 (0.9-2) 11/08/22 20:05 Lipase 49 U/L (11-82) 11/08/22 20:05 Urine Color Yellow 11/08/22 20:50 Urine Appearance Clear (Clear) 11/08/22 20:50 Urine pH 8.5 (4.5-7.5) H 11/08/22 20:50 Ur Specific [place] 1.014 (1.000-1.030) 11/08/22 20:50 Urine Protein Trace (Negative) H 11/08/22 20:50 Urine Glucose (UA) 2+ (Negative) H 11/08/22 20:50 Urine Ketones Negative (Negative) 11/08/22 20:50 Urine Blood Negative (Negative) 11/08/22 20:50 Urine Nitrite Negative (Negative) 11/08/22 20:50 Urine Bilirubin Negative (Negative) 11/08/22 20:50 Urine Urobilinogen Negative (Negative) 11/08/22 20:50 Ur Leukocyte Esterase Negative (Negative) 11/08/22 20:50 Urine WBC (Auto) 1-5 /hpf (0-5) 11/08/22 20:50 Urine RBC (Auto) 0-4 /hpf (0-4) 11/08/22 20:50 U Hyaline Cast (Auto) 0 /lpf (0-5) 11/08/22 20:50 U Epithel Cells (Auto) 10-20 /lpf (0-5) H 11/08/22 20:50 Urine Bacteria (Auto) Negative (Negative) 11/08/22 20:50 Carbamazepine 13.7 mcg/ml (4-12) H* 11/08/22 22:34 SARS-CoV-2, RNA, NAAT NEGATIVE (NEGATIVE) 11/08/22 Unknown Impressions Abdomen/Pelvis CT 11/08/22 20:57 Exam(s): CT ABDOMEN + PELVIS With Contrast IV Amt: 86ml EXAM: CT Abdomen and Pelvis With Intravenous Contrast CLINICAL HISTORY: Reason for exam: upper pain. TECHNIQUE: Axial computed tomography images of the abdomen and pelvis with intravenous contrast. CTDI is 21.86 mGy and DLP is 1149.92 mGy-cm. Automated exposure control was utilized for the study. A dose lowering technique was utilized adhering to the principles of ALARA. CONTRAST: Patient received 86ml of IV contrast COMPARISON: No relevant prior studies available. FINDINGS: Lung bases: Unremarkable. No mass. No consolidation. ABDOMEN: Liver: Unremarkable. No mass. Gallbladder and bile ducts: Cholecystectomy. No ductal dilation. Pancreas: Unremarkable. No mass. No ductal dilation. Spleen: Calcified splenic granulomas. Adrenals: Unremarkable. No mass. Kidneys and ureters: No hydronephrosis or delayed nephrogram. There is excretion of contrast in the collecting systems. Stomach and bowel: Unremarkable. No acute diverticulitis. No small bowel obstruction. No free air. PELVIS: Appendix: Normal appendix. Bladder: Decompressed urinary bladder. Reproductive: Unremarkable as visualized. ABDOMEN and PELVIS: Intraperitoneal space: See above. Bones/joints: Degenerative changes of the spine. No acute fracture. No dislocation. Soft tissues: Unremarkable. Vasculature: Atherosclerotic changes of the aorta. No abdominal aortic aneurysm. Lymph nodes: Unremarkable. No enlarged lymph nodes. IMPRESSION: 1. No acute diverticulitis. No small bowel obstruction. No free air. 2. Normal appendix. 3. Cholecystectomy. Electronically signed by: Dallin Nails MD 11/08/22 23:27 PM Diagnostic Findings Chest x-ray as per my interpretation cardiomegaly, atelectasis EKG as per my interpretation : Rate 65, NSR, normal axis, T wave abnormalities lateral leads
[2022-11-09 00:18] LABS: Magnesium 2.2 mg/dl (1.7-2.4)
[2022-11-09] MEDS ORDERED: PROMETHAZINE HCL 12.5 MG in SODIUM CHLORIDE 0.9% 50 ML IV PRN (00:28)
[2022-11-09] MEDS ORDERED: SODIUM CHLORIDE 0.9% 1000ML 1,000 ML IV STA (00:48)
[2022-11-09] MEDS ORDERED: ACETAMINOPHEN 325 MG TAB PO PRN (01:16)
[2022-11-09] MEDS ORDERED: GLUCAGON FOR INJ 1 MG VIAL SQ PRN (01:16)
[2022-11-09] MEDS ORDERED: CARBOHYDRATES FOR HYPOGLYCEMIA PO PRN (01:16)
[2022-11-09] MEDS ORDERED: GLUCOSE 10 TAB/TUBE PO PRN (01:16)
[2022-11-09] MEDS ORDERED: GLUCOSE 40% GEL 15 GM TUBE PO PRN (01:16)
[2022-11-09] MEDS ORDERED: DEXTROSE 50% 50 ML SYRINGE IV PRN (01:16)
[2022-11-09] MEDS: INSULIN ASPART PER UNIT CHARGE SC SCH ×5 (02:40→20:13)
[2022-11-09] MEDS: LABETALOL HCL 200 MG TAB PO SCH ×3 (02:40→20:08)
[2022-11-09] MEDS: DULoxetine HCL 60 MG CAP PO SCH ×2 (02:41→20:08)
[2022-11-09] MEDS: GABAPENTIN 300 MG CAP PO SCH ×4 (02:41→20:08)
[2022-11-09] MEDS: oxyCODONE HCL IR 5 MG TAB (IMMEDIATE RELEASE) PO PRN ×2 (02:47→20:06)
[2022-11-09] MEDS: HYDROmorphone INJ 0.5 MG/0.5 ML SYR IV PRN ×2 (04:40→08:46)
[2022-11-09 06:56] LABS: Basophils # (auto) 0.06 K/uL (0-0.2); Basophils % (auto) 0.5 %; Eosinophils # (auto) 0.03 K/uL (0-0.50); Eosinophils % (auto) 0.3 %; Hematocrit (blood only) 42.5 % (37.0-47.0); Immature Granulocytes # (auto) 0.03 K/uL (0.01-0.20); Immature Granulocytes % (auto) 0.3 %; Lymphocytes # (auto) 1.88 K/uL (1.2-3.4); Lymphocytes % (auto) 15.8 %; Mean Corpuscular Hemoglobin 30.9 pg (25.0-34.0); Mean Corpuscular Hgb Conc 32.9 g/dL (32.0-36.0); Mean Corpuscular Volume 93.8 fL (80.0-100.0); Neutrophils # (auto) 9.32 K/uL (1.40-6.50); Neutrophils % (auto) 78.1 %; Platelet Count 265 K/uL (130-400); RDW Coefficient of Variation 13.1 % (11.5-14.5); RDW Standard Deviation 44.8 fL (36.4-46.3); Red Blood Count 4.53 M/uL (4.20-5.40); White Blood Count 11.92 K/ul (4.8-10.8)
[2022-11-09 07:23] LABS: BUN Creatinine Ratio 24.1 (10-20); Calcium 9.6 mg/dl (8.6-10.3); Creatinine Clr Calc Pharmacy 67.9 ml/min; Est GFR (African American) 84.3 ml/min; Est GFR (Non-African American) 72.7 ml/min
--- NOTE | 2022-11-09 08:11 | XRay Report ---
XR chest 1V portable HISTORY: Hypoxia. COMPARISON: Chest 05/14/2022. FINDINGS: No pneumothorax. No pleural effusions. Stable calcified granuloma within the right lower lo be. The heart remains enlarged. Mild interstitial thickening persists. This is likely chronic. No new focal lung consolidations identified. Calcified right hilar lymph nodes are noted. Bilateral shoulde r prostheses. IMPRESSION: Cardiomegaly with chronic interstitial thickening. This is similar to the prior study. ACT 112: Negative or not required by law. Electronically signed by: Fawad Holm M.D. 11/09/2022 8:10 AM
[2022-11-09] MEDS: ASPIRIN 81 MG ECTAB PO SCH (08:20)
[2022-11-09] MEDS: ENOXAPARIN INJ 40 MG/0.4 ML SYR SQ SCH (08:21)
[2022-11-09] MEDS: FOLIC ACID 1 MG TAB PO SCH (08:21)
[2022-11-09] MEDS: DOCUSATE SODIUM 100 MG CAP PO SCH (08:21)
[2022-11-09] MEDS: CYANOCOBALAMIN (B-12) 500 MCG TABLET PO SCH (08:21)
[2022-11-09] MEDS: LETROZOLE 2.5 MG TAB PO SCH (08:22)
[2022-11-09] MEDS: lisinopril 40 MG TAB PO SCH (08:22)
--- NOTE | 2022-11-09 10:51 | Electrocardiogram Report ---
Test Reason : Blood Pressure : / mmHG Vent. Rate : 067 BPM Atrial Rate : 067 BPM P-R Int : 206 ms QRS Dur : 096 ms QT Int : 420 ms P-R-T Axes : 092 053 107 degrees QTc Int : 443 ms Normal sinus rhythm Nonspecific ST and T wave abnormality Abnormal ECG When compared with ECG of 14-MAY-2022 23:13, Minimal criteria for Anterior infarct are no longer Present Borderline criteria for Inferior infarct are no longer Present Confirmed by Gregorio Rosales ([id number]) on 11/09/2022 10:51:26 AM Referred By: REFERRED SELF Confirmed By:Gregorio Rosales
[2022-11-09] MEDS: ATORVASTATIN 40 MG TAB PO SCH (11:49)
[2022-11-09] MEDS: ACETAMINOPHEN 500 MG TAB PO SCH ×2 (13:53→21:24)
[2022-11-09] MEDS: LIDOCAINE 5% 1 PATCH TD SCH (13:53)
--- NOTE | 2022-11-09 15:11 | CT Scan Report ---
CT chest diagnostic wo con CT DOSE: 412.19 mGy.cm HISTORY: RUQ pain, r/o rib fracture TECHNIQUE: Multiaxial CT images of the chest were performed without contrast. A dose lowering techni que was utilized adhering to the principles of ALARA. COMPARISON: Abdomen and pelvis CT 11/08/2022. FINDINGS: There is a right shoulder prosthesis. No acute fractures within the chest. Specifically, th e visualized right ribs appear intact. Limited views of the upper abdomen demonstrate punctate calcif ied granulomas within the liver and spleen. The visualized adrenal glands are unremarkable. Normal th yroid gland. Normal esophagus. No mediastinal hematoma or lymphadenopathy. There are calcified subcar inal and right hilar lymph nodes identified. No hilar lymphadenopathy. Moderate to severe coronary ar nina calcifications are noted. The heart is mildly enlarged. No pleural or pericardial effusions. Mil d calcified plaque within the normal caliber thoracic aorta. No pneumothorax. The central airways are patent. Mild emphysema. Bibasilar linear densities consistent with subsegmental atelectasis. There a re few scattered calcified granulomas within the lungs. Consolidation and volume loss within the righ t middle lobe likely representing chronic atelectasis/collapse. There are scattered micronodules with in the lungs measure between 1 and 3 mm. These are likely benign and favor a chronic bronchiolitis. O therwise, no focal lung consolidations to suggest pneumonia. IMPRESSION: 1. No fractures or acute process identified within the chest. 2. Consolidation hand volume loss within the right middle lobe consistent with chronic atelectasis/co llapse. 3. Scattered micronodules within the lungs measure up to 3 mm. This favors a chronic bronchiolitis. O ne year chest CT follow-up recommended to ensure stability. 4. Mild emphysema. 5. Mild cardiomegaly. 6. Additional findings as described above. ACT 112: Negative or not required by law. Electronically signed by: Fawad Holm M.D. 11/09/2022 3:09 PM
--- NOTE | 2022-11-09 15:15 | Hospitalist Progress Note ---
Date of Service November 09, 2022 Assessment & Plan (1) Hypertensive crisis: Plan: Secondary to uncontrolled abdominal pain -- Blood pressure improving --Continue current antihypertensive regimen, with as needed hydralazine RUQ pain - CT abd/pelvis: unrevealing - check CT chest to r/o rib fracture - likely muscular strain from lifting - lipase, lfts ok - lidoderm patch, warm compress tylenol q8h avoid tramadol as patient on cymbalta avoid NSAIDs as patient just had IV contrast - monitor closely chronic diastolic heart failure (EF 55 to 60%, DSE 2021) -- euvolemic hx CAD/CVA/PVD as per records hyperlipidemia, on statin Rx hx COPD, CHAZ on BiPAP, lung status at baseline R breast cancer status post surgery/radiation on Letrozole DM2, insulin requiring, well-controlled as of recent hemoglobin A1c of 5.3 last July 2022 Supratherapeutic carbamazepine level, hx trigeminal neuralgia past tobacco abuse DVT prophylaxis. Lovenox subcu Full code Disposition anticipate d/c home when medically stable Admission and Anticipated Discharge Date Admission Date: November 09, 2022 Subjective Follow-up for hypertensive urgency, severe right upper quadrant pain, etc. Seen resting in bed, comfortable, in good spirits, very pleasant lady States she feels improved compared to yesterday, but still having persistent right upper quadrant pain, sharp, worse with movement Denies shortness of breath, cough, fevers or chills, has occasional nausea, but no diarrhea, last bowel movement yesterday, no urinary symptoms No chest pain, palpitations, dizziness No any other symptoms Review of Systems Review of Systems: all noted and negative except for above Physical Exam Physical Exam: General- oriented x 3, not in distress, speaks in sentences with no effort or accessory muscle use Head- atraumatic Eyes- PERRL, EOMI, anicteric ENT- oropharynx clear Neck- supple, no JVD, no adenopathy, no thyromegaly; carotids +2/2, no bruits appreciated Lungs- clear to auscultation bilaterally, no rales/wheezes Heart- normal rate, regular rhythm; no murmur, no gallop, no rub appreciated Abdomen- normal bowel sounds, nondistended, soft, positive tenderness localized with 3 fingerbreadths over the right upper quadrant area, no masses or hepatosplenomegaly Extremities- no pretibial edema, no calf tenderness; peripheral pulses intact Neuro- alert, oriented x 3; CN 2-12 grossly intact; motor 5/5 bilaterally;sensation 100% on all extremities; no other gross focal neurologic deficits Skin- warm & dry Results & Data Results & Data Vital Signs (Past 12 Hours) Vital Signs Temp Pulse Resp BP Pulse Ox O2 Del Method O2 Flow Rate 11/09/22 11:30 36.7 C 83 18 158/89 H 97 Nasal Cannula 4 11/09/22 08:00 Nasal Cannula 4 11/09/22 08:00 36.5 C 79 18 160/67 H 97 Room Air 11/09/22 05:30 178/82 H all noted and reviewed including below
[2022-11-09] MEDS ORDERED: FLUTICASONE PROPIONATE NA SPR 16 GM BTL SCH (21:00)
[2022-11-09] MEDS ORDERED: LANTUS PER UNIT CHARGE SC SCH (21:00)
[2022-11-09] MEDS ORDERED: MONTELUKAST SODIUM 10 MG TABLET PO SCH (21:00)
[2022-11-10 02:46] VITALS: TEMP 98.2
[2022-11-10] MEDS: ACETAMINOPHEN 500 MG TAB PO SCH ×2 (06:14→13:29)
[2022-11-10] MEDS: INSULIN ASPART PER UNIT CHARGE SC SCH ×2 (08:02→12:28)
[2022-11-10] MEDS: oxyCODONE HCL IR 5 MG TAB (IMMEDIATE RELEASE) PO PRN (08:03)
[2022-11-10] MEDS: ASPIRIN 81 MG ECTAB PO SCH (08:04)
[2022-11-10] MEDS: DOCUSATE SODIUM 100 MG CAP PO SCH (08:05)
[2022-11-10] MEDS: CYANOCOBALAMIN (B-12) 500 MCG TABLET PO SCH (08:05)
[2022-11-10] MEDS: ENOXAPARIN INJ 40 MG/0.4 ML SYR SQ SCH (08:05)
[2022-11-10] MEDS: LETROZOLE 2.5 MG TAB PO SCH (08:06)
[2022-11-10] MEDS: FOLIC ACID 1 MG TAB PO SCH (08:06)
[2022-11-10] MEDS: LIDOCAINE 5% 1 PATCH TD SCH (08:06)
[2022-11-10] MEDS: GABAPENTIN 300 MG CAP PO SCH ×2 (08:06→13:31)
[2022-11-10] MEDS: LABETALOL HCL 200 MG TAB PO SCH (08:06)
[2022-11-10] MEDS: lisinopril 40 MG TAB PO SCH (08:07)
[2022-11-10] MEDS ORDERED: amLODIPine BESYLATE 5 MG TAB PO SCH (09:00)
[2022-11-10 11:36] VITALS: BP 147/68; PULSE 60
[2022-11-10] MEDS: ATORVASTATIN 40 MG TAB PO SCH (11:36)
[2022-11-10 11:38] VITALS: O2SAT 92
--- NOTE | 2022-11-10 14:10 | Hospitalist Progress Note ---
Date of Service November 10, 2022 Assessment & Plan (1) Hypertensive crisis: Plan: Secondary to uncontrolled abdominal pain -- Blood pressure still elevated this AM, even if pain is well controlled Systolic BP in the 180s -- Amlodipine 2.5mg po given BP improved in the 130s in the afternoon -- continue with Amlodipine 2.5 mg po daily for now ff up with PCP this week --Continue other usual BP meds RUQ pain -Likely musculoskeletal strain from heavy lifting - CT abd/pelvis: unrevealing - CT chest: No rib fractures - likely muscular strain from lifting heavy water container - lipase, lfts ok -Given as needed oxycodone, which is adequately controlling the pain Also given lidoderm patch, warm compress tylenol q8h avoid tramadol as patient on cymbalta avoid NSAIDs as patient just had IV contrast -Improving Patient requesting oxycodone as this is helping her pain much better than Percocet PDMP reviewed, Percocet prescription noted, discussed with patient in detail, instructed not to take Percocet when taking oxycodone Other precautions also discussed Patient verbalized understanding and agreement with plan chronic diastolic heart failure (EF 55 to 60%, DSE 2021) -- euvolemic hx CAD/CVA/PVD as per records hyperlipidemia, on statin Rx hx COPD, CHAZ on BiPAP, lung status at baseline R breast cancer status post surgery/radiation on Letrozole DM2, insulin requiring, well-controlled as of recent hemoglobin A1c of 5.3 last July 2022 hx trigeminal neuralgia past tobacco abuse DVT prophylaxis. Lovenox subcu Full code Disposition DC home today Follow-up with PCP in 1 week Admission and Anticipated Discharge Date Admission Date: November 09, 2022 Subjective Follow-up for right upper quadrant pain, etc seen resting in bed, comfortable, in good spirits States she feels much better overall Right upper quadrant pain much better with as needed oxycodone No fevers or chills, change with bowel movements or urination, change in breathing Ambulating with no problems No chest pain or dizziness No any other symptoms States that she is ready for discharge today Review of Systems Review of Systems: all noted and negative except for above Physical Exam Physical Exam: General- oriented x 3, not in distress, speaks in sentences with no effort or accessory muscle use Eyes- anicteric Neck- no JVD Lungs- clear breath sounds bilaterally, no rales/wheezes Heart- normal rate, regular rhythm; no murmurs Abdomen- normal bowel sounds, nondistended, soft, very mild tenderness Extremities- no pretibial edema, no calf tenderness Neuro- alert, oriented x 3; no gross focal neurologic deficits Skin- warm & dry Results & Data Results & Data Vital Signs (Past 12 Hours) Vital Signs Temp Pulse Resp BP Pulse Ox O2 Del Method O2 Flow Rate 11/10/22 11:38 36.8 C 92 Room Air 11/10/22 11:33 60 18 147/68 H 96 Nasal Cannula 3 11/10/22 08:00 Nasal Cannula 3 11/10/22 06:54 36.8 C 58 L 19 189/70 H 96 Nasal Cannula 3.5 11/10/22 02:45 36.8 C 60 17 161/67 H 97 Nasal Cannula 3.5 all noted and reviewed including below
--- NOTE | 2022-11-10 15:14 | Discharge Summary ---
Discharge Summary Date of Service November 10, 2022 Notes For Next Care Provider Please monitor blood pressure. Amlodipine 2.5 mg p.o. daily started. She may not need this additional medication once abdominal musculoskeletal pain has resolved. Medication Changes From Visit Amlodipine 2.5 mg p.o. daily Oxycodone 5 to 10 mg p.o. 3 times daily as needed for severe pain, 12 tablets given Admission HPI Per Admitting Provider History obtained from patient and records. Medical history significant for chronic diastolic heart failure (EF 55 to 60%, DSE 2021), CAD/CVA as per records, PVD status post surgery, HTN, hyperlipidemia, COPD, CHAZ on BiPAP, R breast cancer status post surgery/radiation on Letrozole, DM2, insulin requiring, hx trigeminal neuralgia on carbamazepine, past tobacco abuse. Last confinement May 2022 for uncontrolled hypertension, traumatic facial fracture, right hand phalangeal fracture secondary to fall. This afternoon, patient noted achy right-sided abdominal pain into her back somewhat worse with motion. Subsequent nausea, emesis. No diarrhea. No dysuria. Patient denies chest pain, SOB, headache symptoms. Patient recalls helping her lift a jar of water from the ground 2 days ago. SBP upon arrival at the ER 220s. 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 Admission Exam Per Admitting Provider GENERAL: Slightly uncomfortable, obese, pleasant, no respiratory distress SKIN: Normal color, warm HEENT: [place] palpebral conjunctivae, no ptosis, dry buccal mucosa, nasal cannula in place NECK : Supple, short neck, no tenderness CHEST : Decreased breath sounds, no tenderness HEART : RRR, no obvious murmurs ABDOMEN: Some distention, right-sided abdominal tenderness EXTREMITIES : Bilateral LE swelling, no LE tenderness, no other conspicuous deformities noted NEUROLOGIC : Coherent, no facial asymmetry, no other gross focality Principal Dx & Hospital Course #1 = Principal Diagnosis (1) Hypertensive crisis: Secondary to uncontrolled abdominal pain -- Blood pressure still elevated this AM, even if pain is well controlled Systolic BP in the 180s -- Amlodipine 2.5mg po given BP improved in the 130s in the afternoon -- continue with Amlodipine 2.5 mg po daily for now ff up with PCP this week --Continue other usual BP meds RUQ pain -Likely musculoskeletal strain from heavy lifting - CT abd/pelvis: unrevealing - CT chest: No rib fractures - likely muscular strain from lifting heavy water container - lipase, lfts ok -Given as needed oxycodone, which is adequately controlling the pain Also given lidoderm patch, warm compress tylenol q8h avoid tramadol as patient on cymbalta avoid NSAIDs as patient just had IV contrast -Improving Patient requesting oxycodone as this is helping her pain much better than Percocet PDMP reviewed, Percocet prescription noted, discussed with patient in detail, instructed not to take Percocet when taking oxycodone Other precautions also discussed Patient verbalized understanding and agreement with plan Abnormal CT chest findings -- Scattered micronodules within the lungs measure up to 3 mm. This favors a chronic bronchiolitis. One year chest CT follow-up recommended to ensure stability. -- Please refer to full report in the Ordered Studies section above Further work up, management, and ff up as outpatient chronic diastolic heart failure (EF 55 to 60%, DSE 2021) -- euvolemic hx CAD/CVA/PVD as per records hyperlipidemia, on statin Rx hx COPD, CHAZ on BiPAP, lung status at baseline R breast cancer status post surgery/radiation on Letrozole DM2, insulin requiring, well-controlled as of recent hemoglobin A1c of 5.3 last July 2022 hx trigeminal neuralgia past tobacco abuse DVT prophylaxis. Lovenox subcu Full code Disposition DC home today Follow-up with PCP in 1 week Discharge Exam General- oriented x 3, not in distress, speaks in sentences with no effort or accessory muscle use Eyes- anicteric Neck- no JVD Lungs- clear breath sounds bilaterally, no rales/wheezes Heart- normal rate, regular rhythm; no murmurs Abdomen- normal bowel sounds, nondistended, soft, very mild tenderness Extremities- no pretibial edema, no calf tenderness Neuro- alert, oriented x 3; no gross focal neurologic deficits Skin- warm & dry Updated Medication List Medication Instructions Recorded Confirmed Type atorvastatin 80 mg tablet 80 mg PO QDL 11/12/18 11/08/22 History montelukast 10 mg tablet 10 mg PO HS 11/12/18 11/08/22 History furosemide 40 mg tablet 40 mg PO BID #60 tabs 12/30/19 11/08/22 Rx semaglutide 1 mg/dose (2 mg/1.5 1 mg subcut WK 04/18/20 11/08/22 History mL) subcutaneous pen injector (Ozempic) azelastine-fluticasone 137 mcg-50 2 spray intranasal HS 07/04/21 11/08/22 History mcg/spray nasal spray fluticasone propionate 50 2 spray intranasal HS 07/04/21 11/08/22 History mcg/actuation nasal spray,suspension (Flonase Allergy Relief) labetalol 200 mg tablet 200 mg PO BID 07/04/21 11/08/22 History cholecalciferol (vitamin D3) 25 25 mcg PO DAILY 11/16/21 11/08/22 History mcg (1,000 unit) tablet (Vitamin D3) letrozole 2.5 mg tablet 2.5 mg PO QAM 11/16/21 11/08/22 History sennosides 8.6 mg-docusate sodium 1 - 2 tab-cap PO DAILY PRN HIGH 05/14/22 11/08/22 History 50 mg tablet (Senna-S) DOSE OF PERCOCET ascorbic acid (vitamin C) 500 mg 500 mg PO QPM 06/12/22 11/08/22 History capsule aspirin 81 mg chewable tablet 81 mg PO QAM 06/12/22 11/08/22 History empagliflozin 25 mg tablet 25 mg PO QAM 06/12/22 11/08/22 History (Jardiance) insulin glargine 100 unit/mL (3 34 unit subcut QPM 06/12/22 11/08/22 History mL) subcutaneous pen (Lantus Solostar U-100 Insulin) lisinopril 40 mg tablet 40 mg PO QAM 06/12/22 11/08/22 History potassium chloride 10 mEq 10 meq PO QAM 06/12/22 11/08/22 History tablet,extended release carbamazepine 400 mg 400 mg PO BID #60 tabs 07/18/22 11/08/22 Rx tablet,extended release,12 hr mecobalamin (vitamin B12) 1,000 1,000 mcg PO DAILY 08/30/22 11/08/22 History mcg disintegrating tablet,sublingual duloxetine 30 mg capsule,delayed 60 mg PO QPM #60 caps 10/01/22 11/08/22 Rx release folic acid 1 mg tablet 1 mg PO DAILY #30 tabs 10/28/22 11/08/22 Rx albuterol sulfate 90 mcg/actuation 2 puff inhalation QID PRN 11/08/22 11/08/22 History aerosol inhaler Shortness Of Breath Or Wheezing calcium carbonate 200 mg calcium 600 mg PO DAILY 11/08/22 11/08/22 History (500 mg) chewable tablet (Tums) docusate sodium 100 mg tablet 100 mg PO DAILY 11/08/22 11/08/22 History ezetimibe 10 mg tablet (Zetia) 10 mg PO DAILY 11/08/22 11/08/22 History fexofenadine 180 mg tablet 180 mg PO HS 11/08/22 11/08/22 History gabapentin 300 mg capsule 300 mg PO TID 11/08/22 11/08/22 History amlodipine 5 mg tablet (Norvasc) 2.5 mg PO QAM 30 days #15 tabs 11/10/22 Rx oxycodone 5 mg tablet 5 - 10 mg PO TID PRN severe pain 11/10/22 Rx (scale score 7-10) #12 tabs Hospital Stay Data Consultations 11/08/22 23:50 ED Decision to Admit Stat Diagnostic Imagining Performed 11/08/22 20:57 CT abd pelvis IV con only Stat COMPARISON: No relevant prior studies available. FINDINGS: Lung bases: Unremarkable. No mass. No consolidation. ABDOMEN: Liver: Unremarkable. No mass. Gallbladder and bile ducts: Cholecystectomy. No ductal dilation. Pancreas: Unremarkable. No mass. No ductal dilation. Spleen: Calcified splenic granulomas. Adrenals: Unremarkable. No mass. Kidneys and ureters: No hydronephrosis or delayed nephrogram. There is excretion of contrast in the collecting systems. Stomach and bowel: Unremarkable. No acute diverticulitis. No small bowel obstruction. No free air. PELVIS: Appendix: Normal appendix. Bladder: Decompressed urinary bladder. Reproductive: Unremarkable as visualized. ABDOMEN and PELVIS: Intraperitoneal space: See above. Bones/joints: Degenerative changes of the spine. No acute fracture. No dislocation. Soft tissues: Unremarkable. Vasculature: Atherosclerotic changes of the aorta. No abdominal aortic aneurysm. Lymph nodes: Unremarkable. No enlarged lymph nodes. IMPRESSION: 1. No acute diverticulitis. No small bowel obstruction. No free air. 2. Normal appendix. 3. Cholecystectomy. Electronically signed by: Dallin Nails MD 11/08/22 23:27 PM 11/09/22 13:25 CT chest diagnostic wo con Routine TECHNIQUE: Multiaxial CT images of the chest were performed without contrast. A dose lowering technique was utilized adhering to the principles of ALARA. COMPARISON: Abdomen and pelvis CT 11/08/2022. FINDINGS: There is a right shoulder prosthesis. No acute fractures within the chest. Specifically, the visualized right ribs appear intact. Limited views of the upper abdomen demonstrate punctate calcified granulomas within the liver and spleen. The visualized adrenal glands are unremarkable. Normal thyroid gland. Normal esophagus. No mediastinal hematoma or lymphadenopathy. There are calcified subcarinal and right hilar lymph nodes identified. No hilar lymphadenopathy. Moderate to severe coronary artery calcifications are noted. The heart is mildly enlarged. No pleural or pericardial effusions. Mild ca lcified plaque within the normal caliber thoracic aorta. No pneumothorax. The central airways are patent. Mild emphysema. Bibasilar linear densities consistent with subsegmental atelectasis. There are few scattered calcified granulomas within the lungs. Consolidation and volume loss within the right middle lobe likely representing chronic atelectasis/collapse. There are scattered micronodules within the lungs measure between 1 and 3 mm. These are likely benign and favor a chronic bronchiolitis. Otherwise, no focal lung consolidations to suggest pneumonia. IMPRESSION: 1. No fractures or acute process identified within the chest. 2. Consolidation hand volume loss within the right middle lobe consistent with chronic atelectasis/collapse. 3. Scattered micronodules within the lungs measure up to 3 mm. This favors a chronic bronchiolitis. One year chest CT follow-up recommended to ensure stability. 4. Mild emphysema. 5. Mild cardiomegaly. 6. Additional findings as described above. ACT 112: Negative or not required by law. Pending Results Patient Have Any Pending Studies at Discharge: No Discharge Instructions Given to Patient (Per Discharging Provider) PLEASE REFER TO YOUR NEW MEDICATION LIST AND FOLLOW INSTRUCTIONS CAREFULLY. YOUR NEW MEDICATIONS INCLUDE: Amlodipine-for blood pressure control Oxycodone-as needed for severe pain, do not drive while taking this medication do not take Percocet while taking Oxycodone PLEASE CALL YOUR PRIMARY CARE PHYSICIAN OR RETURN TO THE ER IF WITH WORSENING OF SYMPTOMS, INCLUDING Abdominal pain, fevers or chills, nausea or vomiting, chest pain, shortness of breath, palpitations, dizziness, etc. FOLLOW UP WITH PRIMARY CARE PHYSICIAN IN 1 WEEK. Total Time Total Time Spent Total Time Spent (In Minutes): >30 minutes
== END 2022-11-10 15:27 | disposition home or self-care (01) | DRG 563 ==
LOC: ED 19:51 → SUATTDRO 11-09 00:26 → 2S 11-09 00:26

== ENCOUNTER 2024-01-20 12:38 | Inpatient (IN) ==
--- NOTE | 2024-01-20 13:30 | Emergency Department Note ---
Impression & Plan Hypertensive urgency, Headache, Hypoxemia, Hypercarbia, Lightheadedness ED Provider Note NAME: ABBI MAGAÑA AGE: 78 SEX: F : 1945 ARRIVES VIA: Walk-In INFORMANT: Patient, ED PROVIDER(S): Chrystal Carrillo MD CHIEF COMPLAINT: Headache, dizziness HPI: This is a 78-year-old female presenting for slight headache with dizziness. Patient notes that she has history of high blood pressure and when she noticed that she had a headache with the dizziness she checked her blood pressure and it was significantly elevated. She does feel somewhat lightheaded, not exactly vertiginous. She has difficult time expressing the sensation she is feeling. Otherwise she notes no changes to her motor function, sensation. She has no difficulty with speech. She reports no shortness of breath, chest pain, fevers, chills, nausea, vomiting, diarrhea. ROS: See above HPI for pertinent positives & negatives. A total of 10 systems reviewed and were otherwise negative. PHYSICAL EXAMINATION: General: resting comfortably in no acute distress Head: Normocephalic and atraumatic Eyes: Normal inspection, extraocular muscles intact Ear, nose, throat: Normal external exam Neck: Normal range of motion Respiratory: lungs clear to auscultation bilaterally Cardiovascular: Regular rate/rhythm, no murmur GI: soft, nontender, no guarding or rebound Extremities: nontender, moves all extremities Neuro: The patient awake and alert, appropriately conversive, no focal deficits, symmetric faces, cranial nerves II through XII intact, motor function in all extremities intact, no dysmetria Skin: Warm, dry, and intact MEDICAL DECISION MAKING: This is a 78-year-old female presenting for slight headache with the dizziness. Patient's headache is minimal as per self-report. She notes lightheaded/dizzy sensation. Does not appear consistent with vertigo at this time. Will do CT head to help elucidate. Patient is also mentioning neck pain. Will add on CTA of the head/neck to rule out dissection based on her symptoms and blood pressure. She was significantly hypertensive into the 210's. Otherwise on pulse oximeter she is 87 at baseline. She tells me this is normal for her due to a previous infection in her lungs. She is on home oxygen at this time. She does note she gets winded easily. -Blood work is reviewed showing no sign leukocytosis or anemia. Electrolytes are within normal limits. Patient appears to have a compensated chronic hypercarbia, on VBG. -Due to hypoxia/shortness of breath will CTA at this time. -CT of the head/neck large unrevealing of LVO or dissection, does show a advance plaque of the right carotid bulb. -ECG independently interpreted by me with normal sinus rhythm, rate of 68, normal axis, normal ND, normal QRS, normal QTc, no ST segment elevations consistent with STEMI criteria -Despite patient's negative results, do have concern for hypertensive cause of her symptoms with her headache/dizziness. In addition she is hypoxic. Will admit for further rule out. Discussed with [facility] hospitalist service under Dr. Logan Differential diagnosis: Intracranial hemorrhage, dissection, LVO, PE, hypertensive emergency, pneumonia, COPD ER treatment provided: See below Diagnostics interpreted by me: ECG: See above Cardiac Monitoring: An order was placed for continuous cardiac monitoring. The monitor shows a rate 73 with sinus rhythm. Laboratory studies: As stated above and show below. Imaging studies: See below. Past Med/Surg History Problem List (Updated 01/21/24 @ 09:50 by Chrystal Carrillo MD) Lightheadedness (Acute) Hypercarbia (Acute) Hypoxemia (Acute) Headache (Acute) Hypertensive urgency (Acute) Headache Neck stiffness Hypertensive crisis Abdominal pain, acute, epigastric (Acute) Nausea & vomiting (Acute) Gastroparesis (Acute) Disc disorder of lumbar region Essential tremor Malignant neoplasm of upper-outer quadrant of right breast in female, estrogen receptor positive (Chronic 04/25/21) Status post right knee replacement (~12/2021) CHI (closed head injury) (Acute) Fracture of inferior orbital wall (Acute) Fall (Acute) Phalanx, proximal fracture of finger Fracture of proximal phalanx of digit of right hand Hyperlipidemia Type 2 diabetes mellitus Finger fracture Medical History History of recent fall 05/2022. Hospitalized at [facility]. facial and finger fractures. HEALED. Glaucoma ? IF OFFICIAL DX/ ELEVATED PRESSURES Anxiety and depression HX: breast cancer R partial mastectomy and radiation, no chemo-denies limb restriction Coronary artery calcification Dependent edema on diuretic, chronic per pt without change or worsening Polyneuropathy History of skin cancer Diabetic neuropathy B/L feet, legs CKD (chronic kidney disease) stage 3, GFR 30-59 ml/min Follows with [facility] PCP and internal medicine Pulmonary histoplasmosis Remote hx > chronic interstitial thickening and calcified granulomas noted on prior CXRs History of carotid stenosis s/p R/L carotid endarterectomy (2003) History of gastric ulcer > 40 yrs ago Diabetes mellitus, type 2 NIDDM Hearing deficit Left ear - no hearing aids Stroke 2003 - intermittent vertigo and occasional right sided weakness Hypertension controlled, stable per pt Sleep apnea BIPAP + 4L O2-compliant Asthma WELL CONTROLLED/ NO CURRENT RX FOR RESCUE INHALER Chronic diastolic (congestive) heart failure echo 12/2019 - EF 55-60%, grade I diastolic dysfunction Dyslipidemia Trigeminal neuralgia s/p trigeminal decompression (). On carbamazepine, follows with [facility] neuro (Dr. Jackson) Surgical History H/O partial mastectomy R breast S/P carotid endarterectomy HX R&L History of total knee replacement RIGHT TKA LEFT TKA S/P lumpectomy, right breast With right axillary SLN biopsy on 06/06/[address] Goel History of cataract surgery RT/LEFT History of total shoulder replacement Left shoulder replacement (12/25/18): Grade 3 view (unable to read details regarding grade view on anesthesia records), Glidescope #3, ETT 7.5 + PNB at [facility] Hx of dilation and curettage History of surgical removal of ganglion cyst History of surgery Trigeminal decompression of 5th nerve History of total shoulder replacement Right (11/14/17): Elective Glidescope #3 due to Grade 3 View and difficulty visualizing cords, ETT #7.0. Patient re-positioned twice. History of cholecystectomy History of esophagogastroduodenoscopy (EGD) History of colonoscopy w/ polypectomy History of tonsillectomy and adenoidectomy History of tooth extraction Fatty tumor "removed" Family History Father , age 96 of a stroke Coronary heart disease Stroke Mother , age 79 of an [place] Myocardial infarction Brother Ankylosing spondylitis of site in spine Daughter No problems noted. Son No problems noted. 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 How many Children do You have: 1 Other Information That Helps Us Care for You: No Feels Safe at Home: Yes Safety Concerns: Feels Safe At This Time Diet: regular caffeine: Yes (4 cups/week) during the past year weight has: remained stable Assistive Devices: Glasses Allergies Allergies Allergy/AdvReac Type Severity Reaction Status Date / Time clarithromycin AdvReac Intermediate Mouth Verified 01/20/24 15:07 burning Home Meds Home Medications Medication Instructions Recorded Confirmed atorvastatin 80 mg tablet 80 mg PO QAM 11/12/18 01/20/24 montelukast 10 mg tablet 10 mg PO 11/12/18 01/20/24 azelastine 137 mcg-fluticasone 50 2 spray intranasal 07/04/21 01/20/24 mcg/spray nasal spray fluticasone propionate 50 2 spray intranasal 07/04/21 01/20/24 mcg/actuation nasal spray,suspension (Flonase Allergy Relief) labetalol 200 mg tablet 200 mg PO BID 07/04/21 01/20/24 cholecalciferol (vitamin D3) 25 25 mcg PO DAILY 11/16/21 01/20/24 mcg (1,000 unit) tablet (Vitamin D3) letrozole 2.5 mg tablet 2.5 mg PO QAM 11/16/21 01/20/24 ascorbic acid (vitamin C) 500 mg 500 mg PO QDL 06/12/22 01/20/24 capsule empagliflozin 25 mg tablet 25 mg PO QAM 06/12/22 01/20/24 (Jardiance) insulin glargine 100 unit/mL (3 30 unit subcut QPM 12/07/22 07/16/24 mL) subcutaneous pen (Lantus Solostar U-100 Insulin) lisinopril 40 mg tablet 40 mg PO QAM 06/12/22 01/20/24 potassium chloride 10 mEq 10 meq PO QAM 06/12/22 01/20/24 tablet,extended release albuterol sulfate 90 mcg/actuation 2 puff inhalation QID PRN 11/08/22 01/20/24 aerosol inhaler Shortness Of Breath Or Wheezing docusate sodium 100 mg tablet 200 mg PO DAILY 11/08/22 01/20/24 ezetimibe 10 mg tablet (Zetia) 10 mg PO DAILY 11/08/22 01/20/24 fexofenadine 180 mg tablet 180 mg PO HS 11/08/22 01/20/24 Oxygen Home 06/12/23 01/20/24 carbamazepine 400 mg 400 mg PO BID 06/12/23 01/20/24 tablet,extended release,12 hr oxycodone-acetaminophen 5 mg-325 1 tab PO Q8H PRN Pain 06/12/23 01/20/24 mg tablet amlodipine 2.5 mg tablet 2.5 mg PO DAILY 09/12/23 01/20/24 gabapentin 300 mg capsule 300 mg PO .COMPLEX 09/12/23 01/20/24 amoxicillin 500 mg capsule 2,000 mg PO DIRECTED PRN 1 HR 01/20/24 01/20/24 PRIOR TO DENTAL PROCEDURES aspirin 81 mg tablet,delayed 81 mg PO DAILY 01/20/24 01/20/24 release calcium carbonate 600 mg-vitamin 2 cap PO DAILY 01/20/24 01/20/24 D3 12.5 mcg (500 unit) capsule (Calcium 600 with Vitamin D3) cyanocobalamin (vitamin B-12) 1,000 mcg PO DAILY 01/20/24 01/20/24 1,000 mcg tablet (Vitamin B-12) duloxetine 60 mg capsule,delayed 60 mg PO HS 01/20/24 01/20/24 release (Cymbalta) evolocumab 140 mg/mL subcutaneous 140 mg subcut .[id number] 01/20/24 01/20/24 pen injector (Lilia Tyson) melatonin 10 mg tablet 10 mg PO HS 01/20/24 01/20/24 semaglutide 2 mg/dose (8 mg/3 mL) 2 mg subcut WK 01/20/24 01/20/24 subcutaneous pen injector (Ozempic) Previous Rx's Medication Instructions Recorded furosemide 40 mg tablet 40 mg PO BID #60 tabs 12/30/19 folic acid 1 mg tablet 1 mg PO DAILY #30 tabs 04/07/23 Results & Data (ED) Vital Signs Vital Signs - 24 hr 01/20/24 12:39 01/20/24 13:00 01/20/24 13:20 Temperature 36.8 C Temperature Source Oral Pulse Rate 72 61 Pulse Rate [Right Finger] 66 Pulse Rhythm [Right Finger] Pulse Strength [Right Finger] Respiratory Rate 18 18 Respiratory Effort / Characteristics Non-Labored Spontaneous Respiratory Depth Normal Respiratory Pattern Regular Blood Pressure 221/90 H Blood Pressure [Right Arm] 191/85 H Blood Pressure Mean 133 Blood Pressure Mean [Right Arm] 120 Pulse Oximetry 89 L 90 Oxygen Delivery Method Room Air Sepsis Recent Fever Within 48 Hours No Sepsis New/Unexplained Change in Mental Status No Sepsis Action Taken by Nursing No Action Required 01/20/24 15:03 Temperature Temperature Source Pulse Rate Pulse Rate [Right Finger] 71 Pulse Rhythm [Right Finger] Regular Pulse Strength [Right Finger] Normal Respiratory Rate 20 Respiratory Effort / Characteristics Non-Labored Spontaneous Respiratory Depth Normal Respiratory Pattern Regular Blood Pressure Blood Pressure [Right Arm] Blood Pressure Mean Blood Pressure Mean [Right Arm] Pulse Oximetry 98 Oxygen Delivery Method Room Air Sepsis Recent Fever Within 48 Hours Sepsis New/Unexplained Change in Mental Status Sepsis Action Taken by Nursing Laboratory Data 01/21/24 05:28 01/21/24 07:44 Lab Results 01/20/24 Range/Units 13:35 WBC 8.34 (4.8-10.8) K/ul RBC 4.32 (4.20-5.40) M/uL Hgb 13.3 (12.0-16.0) g/dl Hct 41.8 (37.0-47.0) % MCV 96.8 (80.0-100.0) fL MCH 30.8 (25.0-34.0) pg MCHC 31.8 L (32.0-36.0) g/dL RDW Std Deviation 47.6 H (36.4-46.3) fL RDW Coeff of Mono 13.3 (11.5-14.5) % Plt Count 218 (130-400) K/uL MPV 9.5 (9.4-12.4) fL Immature Gran % (Auto) 0.6 % Neut % (Auto) 69.1 % Lymph % (Auto) 20.6 % [place] % (Auto) 6.2 % Eos % (Auto) 2.9 % Baso % (Auto) 0.6 % Neut # (Auto) 5.76 (1.40-6.50) K/uL Lymph # (Auto) 1.72 (1.20-3.40) K/uL [place] # (Auto) 0.52 (0.11-0.59) K/uL Eos # (Auto) 0.24 (0.00-0.50) K/uL Baso # (Auto) 0.05 (0.00-0.20) K/uL Immature Gran # (Auto) 0.05 (0.01-0.20) K/uL VBG pH 7.41 (7.36-7.41) VBG pCO2 57 H (38-50) mmHg VBG pO2 41 mmHg VBG HCO3 36 mmol/L VBG O2 Saturation 66.6 % VBG Base Excess 9.4 mEq/L Sodium 141 (136-145) mmol/L Potassium 3.9 (3.5-5.1) mmol/L Chloride 98 (98-107) mmol/L Carbon Dioxide 36 H (21-32) mmol/L Anion Gap 7 (3-11) BUN 12 (6-23) mg/dl Creatinine 0.93 (0.6-1.2) mg/dl Est Cr Clr Drug Dosing 58.8 ml/min Est GFR ( Amer) 68.2 ml/min Est GFR (Non-Af Amer) 58.9 ml/min BUN/Creatinine Ratio 12.9 (10-20) Glucose 96 (70-99(Fasting)) mg/dl Calcium 10.8 H (8.6-10.3) mg/dl Total Bilirubin 0.4 (0.2-1.0) mg/dl AST 15 (13-39) U/L ALT 13 (7-52) U/L Alkaline Phosphatase 136 H (34-104) U/L Troponin I High Sens 7.9 (0-14) pg/ml B-Natriuretic Peptide 164 H (0-100) pg/ml Total Protein 7.2 (6.0-8.3) gm/dl Albumin 4.2 (3.4-5.0) gm/dl Globulin 3.0 (2.5-4.0) gm/dl Albumin/Globulin Ratio 1.4 (0.9-2) Lipase 32 (11-82) U/L Administered Medications Acetaminophen (Acetaminophen 500 Mg Tab) 1,000 mg PO TID STEVEN Stop: 02/19/24 20:59 Last Admin: 01/21/24 07:59 Dose: 1,000 mg Documented By: Admin: 01/20/24 20:27 Dose: 1,000 mg Documented By: MARGI Amlodipine Besylate (Amlodipine Besylate 5 Mg Tab) 5 mg PO DAILY STEVEN Stop: 02/20/24 08:59 Last Admin: 01/21/24 08:00 Dose: 5 mg Documented By: ROSIE Aspirin (Aspirin 81 Mg Ectab) 81 mg PO DAILY STEVEN Stop: 02/20/24 08:59 Last Admin: 01/21/24 08:00 Dose: 81 mg Documented By: ROSIE Atorvastatin Calcium (Atorvastatin 40 Mg Tab) 80 mg PO QAM STEVEN Stop: 02/20/24 08:59 Last Admin: 01/21/24 08:01 Dose: 80 mg Documented By: ROSIE Carbamazepine (Carbamazepine Xr 200 Mg Tabcr) 400 mg PO BID STEVEN Stop: 02/19/24 20:59 Last Admin: 01/21/24 07:59 Dose: 400 mg Documented By: Admin: 01/20/24 20:30 Dose: 400 mg Documented By: MARGI Cyanocobalamin (Cyanocobalamin (B-12) 500 Mcg Tablet) 1,000 mcg PO DAILY STEVEN Stop: 02/20/24 08:59 Last Admin: 01/21/24 08:01 Dose: 1,000 mcg Documented By: ROSIE Cyclobenzaprine HCl (Cyclobenzaprine Hcl 5 Mg Tab) 5 mg PO BID PRN PRN Reason: Muscle Spasm Stop: 02/19/24 18:20 Last Admin: 01/21/24 09:01 Dose: 5 mg Documented By: Admin: 01/20/24 21:06 Dose: 5 mg Documented By: MARGI Docusate Sodium (Docusate Sodium 100 Mg Cap) 200 mg PO DAILY STEVEN Stop: 02/20/24 08:59 Last Admin: 01/21/24 08:02 Dose: 200 mg Documented By: ROSIE Duloxetine HCl (Duloxetine Hcl 60 Mg Cap) 60 mg PO [facility] Stop: 02/19/24 20:59 Last Admin: 01/20/24 20:28 Dose: 60 mg Documented By: MARGI Ezetimibe (Ezetimibe 10 Mg Tab) 10 mg PO DAILY [facility] Stop: 02/20/24 08:59 Last Admin: 01/21/24 08:01 Dose: 10 mg Documented By: ROSIE Fexofenadine HCl (Fexofenadine Hcl 180 Mg Tab) 180 mg PO [facility] Stop: 02/19/24 20:59 Last Admin: 01/20/24 20:28 Dose: 180 mg Documented By: MARGI Fluticasone Propionate (Fluticasone Propionate Na Spr 16 Gm Btl) 2 sprays NA [facility] Stop: 02/19/24 20:59 Last Admin: 01/20/24 20:23 Dose: Not Given Documented By: MARGI Folic Acid (Folic Acid 1 Mg Tab) 1 mg PO DAILY [facility] Stop: 02/20/24 08:59 Last Admin: 01/21/24 08:01 Dose: 1 mg Documented By: ROSIE Gabapentin ([facility] 300 Mg Cap) [facility] Stop: 02/20/24 08:59 Last Admin: 01/21/24 08:03 Dose: 300 mg Documented By: ROSIE Hydralazine HCl (Hydralazine Hcl 20 Mg/Ml Vial) 5 mg IV Q4H PRN PRN Reason: Blood Pressure - High Stop: 02/19/24 18:20 Last Admin: 01/20/24 20:33 Dose: 5 mg Documented By: MARGI Insulin Aspart (Insulin Aspart Per Unit Charge) 0 units SC [facility]; Protocol Stop: 02/19/24 20:59 Last Admin: 01/21/24 08:58 Dose: Not Given Documented By: Admin: 01/20/24 20:51 Dose: Not Given Documented By: MARGI Co-signed By: DAI Insulin Glargine (Lantus Per Unit Charge) 20 units SC [facility]; Protocol Stop: 02/19/24 20:59 Last Admin: 01/20/24 21:01 Dose: 20 units Documented By: MARGI Co-signed By: KALEB Labetalol HCl (Labetalol Hcl 200 Mg Tab) 200 mg PO BID [facility] Stop: 02/19/24 20:59 Last Admin: 01/21/24 07:59 Dose: 200 mg Documented By: Admin: 01/20/24 20:29 Dose: 200 mg Documented By: MARGI Letrozole (Letrozole 2.5 Mg Tab) 2.5 mg PO [facility] Stop: 02/20/24 08:59 Last Admin: 01/21/24 08:01 Dose: 2.5 mg Documented By: ROSIE Co-signed By: EPI Lidocaine (Lidocaine 5% 1 Patch) 1 patch TD [facility] Stop: 02/20/24 08:59 Last Admin: 01/21/24 08:09 Dose: 1 patch Documented By: ROSIE Lisinopril (Lisinopril 40 Mg Tab) 40 mg PO [facility] Stop: 02/20/24 08:59 Last Admin: 01/21/24 08:01 Dose: 40 mg Documented By: ROSIE Melatonin (Melatonin 3 Mg Tab) 9 mg PO [facility] Stop: 02/19/24 20:59 Last Admin: 01/20/24 23:15 Dose: 9 mg Documented By: CHARLI Miscellaneous (Remove Lidoderm Patch) 1 each N/A DAILY@2100 [facility] Stop: 02/19/24 20:59 Last Admin: 01/20/24 21:08 Dose: Not Given Documented By: MARGI Montelukast Sodium (Montelukast Sodium 10 Mg Tablet) 10 mg PO [facility] Stop: 02/19/24 20:59 Last Admin: 01/20/24 20:30 Dose: 10 mg Documented By: MARGI Potassium Chloride (Potassium Chloride 10 Meq Tabcr) 10 meq PO [facility] Stop: 02/20/24 08:59 Last Admin: 01/21/24 08:01 Dose: 10 meq Documented By: ROSIE Discontinued Medications Acetaminophen (Acetaminophen 500 Mg Tab) 1,000 mg PO NOW STA Stop: 01/20/24 17:36 Last Admin: 01/20/24 18:05 Dose: Not Given Documented By: ELISABET Cyclobenzaprine HCl (Cyclobenzaprine Hcl 5 Mg Tab) 5 mg PO NOW STA Stop: 01/20/24 17:23 Last Admin: 01/20/24 18:05 Dose: Not Given Documented By: ELISABET Hydralazine HCl (Hydralazine Hcl 20 Mg/Ml Vial) 5 mg IV NOW STA Stop: 01/20/24 16:25 Last Admin: 01/20/24 16:42 Dose: 5 mg Documented By: ELISABET Hydralazine HCl (Hydralazine Hcl 20 Mg/Ml Vial) Confirm Administered Dose 20 mg .ROUTE .STK-MED ONE Stop: 01/20/24 16:23 Last Admin: 01/20/24 16:42 Dose: Not Given Documented By: ELISABET Ioversol (Optiray 320 125ml) 119 ml IV ONCE ONE Stop: 01/20/24 14:24 Last Admin: 01/20/24 14:27 Dose: 119 ml Documented By: ANAID Potassium Chloride (Potassium Chloride Crtab 20 Meq Tabcr) 40 meq PO NOW STA Stop: 01/21/24 08:46 Last Admin: 01/21/24 09:02 Dose: 40 meq Documented By: ROSIE Discharge Plan Visit Data Chief Complaint: Referred by Doctor Stated Complaint: dizzy, high bp ED Provider: Chrystal Carrillo Discharge Problem: Hypertensive urgency, Headache, Hypoxemia, Hypercarbia, Lightheadedness Patient Disposition: Admitted As Inpatient Discharge Instructions Interventions: ED Discharge Assessment Last Done: 01/20/24 18:21
[2024-01-20 13:49] LABS: Base Excess VBG 9.4 mEq/L; HCO3 VBG 36 mmol/L; Oxygen Saturation VBG 66.6 %; PCO2 VBG 57 mmHg (38-50); PO2 VBG 41 mmHg; pH VBG 7.41 (7.36-7.41)
[2024-01-20 13:56] LABS: Basophils # (auto) 0.05 K/uL (0.00-0.20); Basophils % (auto) 0.6 %; Eosinophils # (auto) 0.24 K/uL (0.00-0.50); Eosinophils % (auto) 2.9 %; Hematocrit (blood only) 41.8 % (37.0-47.0); Hemoglobin 13.3 g/dl (12.0-16.0); Immature Granulocytes # (auto) 0.05 K/uL (0.01-0.20); Immature Granulocytes % (auto) 0.6 %; Lymphocytes # (auto) 1.72 K/uL (1.20-3.40); Lymphocytes % (auto) 20.6 %; Mean Corpuscular Hemoglobin 30.8 pg (25.0-34.0); Mean Corpuscular Hgb Conc 31.8 g/dL (32.0-36.0); Mean Corpuscular Volume 96.8 fL (80.0-100.0); Mean Platelet Volume 9.5 fL (9.4-12.4); Monocytes # (auto) 0.52 K/uL (0.11-0.59); Monocytes % (auto) 6.2 %; Neutrophils # (auto) 5.76 K/uL (1.40-6.50); Neutrophils % (auto) 69.1 %; Platelet Count 218 K/uL (130-400); RDW Coefficient of Variation 13.3 % (11.5-14.5); RDW Standard Deviation 47.6 fL (36.4-46.3); Red Blood Count 4.32 M/uL (4.20-5.40); White Blood Count 8.34 K/ul (4.8-10.8)
[2024-01-20 14:11] LABS: Albumin Globulin Ratio 1.4 (0.9-2); Albumin Level 4.2 gm/dl (3.4-5.0); BUN Creatinine Ratio 12.9 (10-20); Bilirubin,Total 0.4 mg/dl (0.2-1.0); Calcium 10.8 mg/dl (8.6-10.3); Creatinine Clr Calc Pharmacy 58.8 ml/min; Est GFR (African American) 68.2 ml/min; Est GFR (Non-African American) 58.9 ml/min; Potassium 3.9 mmol/L (3.5-5.1); Total Protein 7.2 gm/dl (6.0-8.3)
[2024-01-20 14:17] LABS: Troponin I High Sensitivity 7.9 pg/ml (0-14)
[2024-01-20] MEDS: OPTIRAY 320 125ml IV ONE (14:27)
--- NOTE | 2024-01-20 15:03 | CT Scan Report ---
CT angio chest PE protocol CLINICAL HISTORY: PE/dissection (hypoxic) TECHNIQUE: Multidetector row helical CT of the chest was performed with angiographic protocol. Fried l and sagittal reformations were obtained. Coronal and sagittal MIPS were obtained from the axial valarie a set and were submitted for review. Automated dose lowering techniques and/or adjustment according to patient size were utilized for this exam. Comparison: Comparison is made to CT chest 11/09/2022 FINDINGS: Lungs and pleura: Peripheral interstitial thickening is seen. There is scarring in the right middle l obe. Heart and pericardium: Cardiomegaly is seen with biatrial enlargement. Vessels: No evidence of pulmonary embolism. Moderate atherosclerosis is seen. Mediastinum and fili: Calcified subcarinal lymph nodes are seen. Additional subcentimeter nodes are s een. Chest wall and lower neck: Unremarkable. Abdomen: Calcifications are seen in the spleen. Bones: Degenerative changes in the thoracic spine. Bilateral shoulder arthroplasties are seen. IMPRESSION: No acute abnormality and in particular no evidence of pulmonary embolus or aortic dissection. ACT 112: Negative or not required by law. Electronically signed by: Ho Landers M.D. 01/20/2024 3:02 PM
--- NOTE | 2024-01-20 15:04 | CT Scan Report ---
CT OF THE HEAD WITHOUT CONTRAST CLINICAL HISTORY: Headache, vertigo, neck pain; dissection COMPARISON STUDY: Head CT May 14, 2022. TECHNIQUE: Helical axial images of the head were obtained without IV contrast. Automated exposure con trol was utilized for the study. A dose lowering technique was utilized adhering to the principles o f ALARA. FINDINGS: No acute intracranial hemorrhage, midline shift or mass effect is present. White matter hyp odensities are unchanged and favor small vessel disease. The ventricular system is unremarkable. The basal cisterns are patent. No extra-axial collections are present. There are no findings to suggest a cute dural sinus thrombosis or acute territorial infarct. No significant calvarial abnormalities are present. Left occipital craniectomy is again noted. Visualized portions of the sinuses and mastoid ai r cells are clear. IMPRESSION: No acute intracranial findings. ACT 112: Negative or not required by law. Electronically signed by: Vj De Souza M.D. 01/20/2024 3:03 PM
--- NOTE | 2024-01-20 15:06 | CT Scan Report ---
CT ANGIOGRAM OF THE NECK CLINICAL HISTORY: Headaches. Vertigo. Neck pain. COMPARISON STUDY: CT of the neck dated 12/27/2019. TECHNIQUE: Following the IV administration of 119 of Optiray 320, CT angiogram of the neck was perfor med from the aortic arch to the skull base. Images are reviewed in the axial, sagittal, and coronal p lanes. 3-D MIPS images are created and assessed. IV contrast was administered without complication. A ll measurements were calculated based on NASCET criteria. A dose lowering technique was utilized adh ering to the principles of ALARA. CT DOSE: 2199.28 mGy.cm FINDINGS: Thoracic aorta: There is atherosclerotic calcification of the thoracic aorta. Visualized portions of the thoracic aorta are normal in caliber. The aortic arch demonstrates 4-vessel variant anatomy. The left vertebral artery arises directly from the thoracic aorta. Right carotid arterial system: The right common carotid artery is patent, as are the right internal a nd external carotid arteries. Calcified plaque is seen in the carotid bulb. Advanced atherosclerotic change is seen in the carotid bulb with ulcerated plaque. Left carotid arterial system: The left common carotid artery is widely patent, as are the left creative intern al and external carotid arteries. Calcified plaque is seen in the carotid bulb. Vertebral arteries: The vertebral arteries are widely patent bilaterally noting right-sided dominance . No dissection is seen Subclavian arteries: Widely patent bilaterally. Intracranial vasculature: The visualized intracranial vessels at the skull base are patent. Jugular veins: Patent bilaterally. Brain parenchyma: The visualized brain parenchyma the skull base is within normal limits. Lung apices: Partially visualized upper lobe lung parenchyma appears clear. Soft tissues: The visualized pharyngeal soft tissues are normal in appearance noting angiographic pha se technique. The oropharyngeal airway appears widely patent. The salivary and thyroid glands are nor mal in appearance. No cervical lymphadenopathy is seen. Skeletal structures: The skeletal structures are osteopenic. There is evidence of previous left occip ital craniectomy. The visualized calvarium at the skull base otherwise appears intact. The imaged cer vical spine is maintained and noting multilevel spondylosis. Sinuses and mastoids: The visualized paranasal sinuses are clear. The mastoid air cells are well pneu matized. IMPRESSION: 1. There is no evidence of hemodynamically cystic and stenosis involving the carotid or vertebral art eries. 2. Advanced atherosclerotic change is seen in the right carotid bulb with large ulcerated plaque. 3. Additional findings as above. ACT 112: Negative or not required by law. Electronically signed by: Michael Rajan M.D. 01/20/2024 3:05 PM
--- NOTE | 2024-01-20 15:08 | CT Scan Report ---
CTA ANGIOGRAPHY OF THE HEAD CLINICAL HISTORY: Headache, vertigo, neck pain; dissection COMPARISON STUDY: Head CT May 14, 2022. TECHNIQUE: Helical axial images of the head were obtained following uneventful intravenous administr ation of 119 cc of Optiray. Sagittal and coronal reconstructions were viewed as well as maximal inten sity projections on an independent 3-D workstation. Automated exposure control was utilized for the study. A dose lowering technique was utilized adhering to the principles of ALARA. FINDINGS: No acute intracranial hemorrhage, midline shift or mass effect is present. Ventricular syst em is stable. Basal cisterns are patent. The left occipital craniectomy is unchanged in appearance. T he bilateral M1, M2, A1 and A2 segments are patent. There is mild plaque within the cavernous carotid s without stenosis. No intracranial vascular occlusion is identified. The posterior circulation is in tact. There is no intracranial aneurysm. Major dural sinuses are patent. Right vertebral artery is do minant. IMPRESSION: No large vessel occlusion. No intracranial aneurysm. ACT 112: Negative or not required by law. Electronically signed by: Vj De Souza M.D. 01/20/2024 3:07 PM
--- NOTE | 2024-01-20 16:01 | History & Physical Report ---
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 Hypertensive Urgency H/O Uncontrolled HTN Patient states that she has been experiencing some lightheadedness and headaches since yesterday. Patient ultimately decided to take her blood pressure this morning. She notes that her systolic BP was in the low 200s approximately 15 minutes AFTER taking all of her BP medications this morning. The patient contacted her PCP's office [[facility], Dr. Sr] to report her elevated BP and they instructed her to come to the ED for further evaluation. BP 221/90 upon presentation to ED. Pt did not receive any anti-hypertensives in ED prior to sign-out. Head CT negative, head CTA negative - no large vessel occlusion or intracranial aneurysm. Neck CTA revealed the following: i. Negative for stenosis involving the carotid or vertebral arteries. ii. Advanced atherosclerotic changes seen in right carotid bulb with large ulcerated plaque. Chest CTA negative for any acute abnormalities - no evidence of PE or aortic dissection. BP was further elevated at 225/93 at time of admission. Ordered pt 5mg IV hydralazine and BP improved to 184/88 ~ 16:49. Continue w/ PRN 5mg IV hydralazine for SBP>160. She is on the following BP medications [employer]: i. Amlodipine 2.5 mg p.o. daily ii. Labetalol 200 mg p.o. twice daily iii. Lisinopril 40 mg daily Will increase amlodipine dose to 5 mg p.o. daily starting tomorrow AM. Pt also taking Lasix 40 mg p.o. twice daily [employer] - will hold for now. AM labs including CBC, CMP, mag and phos. Closely monitor BP trends w/ continuous cardiac monitoring. Neck Stiffness & Headache Pt c/o neck stiffness and headache on admission. Will start pt on po 5mg Flexeril BID PRN and scheduled Tylenol. DM Type II Hold [employer] ENG[employer] diabetic medications; initiate SSI regimen, Hgb A1c 6.3 on 12/02. BSG checks ACHS; glycemic pharmacy consulted for recommendations/input. CAD, H/O CVA s/p Bilateral Carotid Endarterectomy [2003]: Can continue [employer] aspirin and statin therapy. Pt follows w/ [facility]. History of R Breast Cancer Pt follows w/ Dr. Wilcox [[facility] Had partial mastectomy and sentinel axillary lymph node biopsy on 06/06/2021. Pt also completed XRT (20 treatments) at [facility] 07/24/21-08/17/21. Pt on letrozole (7-year course) --> will continue this while she is admitted. COPD Patient does report that she has supplemental oxygen at home to use as needed. She mentions that she has not used her oxygen recently. She was originally prescribed the oxygen secondary to COPD and history of pulmonary histoplasmosis - patient has followed with [facility] in the past. Patient reports that her oxygen saturation is typically around 87% at home - she states this is her "baseline" oxygen saturation level. Pt 98% SpO2 on RA at time of admission. Will order oxygen via [place] as needed for SpO2 < 90%. Pt on montelukast 10mg po HS [employer] - will continue. Can also continue PRN albuterol inhaler, patient not c/o SOB on admission. CHAZ on BiPAP: Can continue BiPAP HS - ordered. Pt follows alexandre/ [facility]. Other Chronic Medical Conditions: Diabetic peripheral neuropathy, seasonal allergies --> Can continue [employer] ENG[employer] medications for these specific conditions. DVT Prophylaxis: SCDs/TEDs - For now Code Status: FULL CODE PCP: Ferny Sr, Disposition: Admit to Med/Surg w/ Telemetry Patient seen in collaboration with Dr. Logan. Please see addendum. I spent a total of 65 minutes coordinating, documenting, and providing care for this patient excluding time spent in the performance of separately billed services. This included personally reviewing all current laboratories and imaging studies, medical reconciliation, outpatient chart review and discussion with specialists. This chart was completed in part utilizing Speech Voice Recognition Software. Grammatical errors, random word insertions, pronoun errors, and incomplete sentences are an occasional consequence of this system due to software limitations, ambient noise, and hardware issues. Any formal questions or concerns about the content, text, or information contained within the body of this dictation should be directly addressed to the provider for clarification. 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 History obtained from patient and associated chart review. Patient states that she has been experiencing some lightheadedness since yesterday. She denies any dizziness or recent falls, just mentions she feels "kind of off." Due to the ongoing lightheadedness, patient decided to take her blood pressure this morning. She notes that her systolic BP was in the low 200s approximately 15 minutes AFTER taking all of her BP medications this morning. Her checked her blood sugar as well, which was fine. The patient contacted her PCP's office [[facility], Dr. Sr] to report her elevated BP and they instructed her to come to the ED for further evaluation. She denies any nausea or vomiting, but does report an ongoing headache since yesterday as well. She reports that the headache is more so localized to both temporal regions and feels more like a "banding sensation" around her head. She denies any recent head trauma. Patient has been taking some extra strength Tylenol and Percocet (which was originally prescribed for back pain) without much relief of the headache. She is also complaining of some left-sided neck stiffness and pain, which she mentions has been ongoing for the past 2 weeks. Patient does report that she has supplemental oxygen at home to use as needed. She mentions that she has not used her oxygen recently. She was originally prescribed the oxygen secondary to COPD and history of pulmonary histoplasmosis - patient has followed with [facility] in the past. Patient reports that her oxygen saturation is typically around 87% at home - she states this is her "baseline" oxygen saturation level. She reports compliance with her BiPAP for sleep apnea - follows with [facility]. Patient denies any chest pain, SOB, abdominal pain or bowel/urinary habit issues. Allergies Allergy/AdvReac Type Severity Reaction Status Date / Time clarithromycin AdvReac Intermediate Mouth Verified 01/20/24 15:07 burning Home Medications Medication Instructions Recorded Confirmed Type atorvastatin 80 mg tablet 80 mg PO QAM 11/12/18 01/20/24 History montelukast 10 mg tablet 10 mg PO HS 11/12/18 01/20/24 History furosemide 40 mg tablet 40 mg PO BID #60 tabs 12/30/19 01/20/24 Rx azelastine 137 mcg-fluticasone 50 2 spray intranasal HS 07/04/21 01/20/24 History mcg/spray nasal spray fluticasone propionate 50 2 spray intranasal HS 07/04/21 01/20/24 History mcg/actuation nasal spray,suspension (Flonase Allergy Relief) labetalol 200 mg tablet 200 mg PO BID 07/04/21 01/20/24 History cholecalciferol (vitamin D3) 25 25 mcg PO DAILY 11/16/21 01/20/24 History mcg (1,000 unit) tablet (Vitamin D3) letrozole 2.5 mg tablet 2.5 mg PO QAM 11/16/21 01/20/24 History ascorbic acid (vitamin C) 500 mg 500 mg PO QDL 06/12/22 01/20/24 History capsule empagliflozin 25 mg tablet 25 mg PO QAM 06/12/22 01/20/24 History (Jardiance) insulin glargine 100 unit/mL (3 30 unit subcut QPM 06/12/22 01/20/24 History mL) subcutaneous pen (Lantus Solostar U-100 Insulin) lisinopril 40 mg tablet 40 mg PO QAM 06/12/22 01/20/24 History potassium chloride 10 mEq 10 meq PO QAM 06/12/22 01/20/24 History tablet,extended release albuterol sulfate 90 mcg/actuation 2 puff inhalation QID PRN 11/08/22 01/20/24 History aerosol inhaler Shortness Of Breath Or Wheezing docusate sodium 100 mg tablet 200 mg PO DAILY 11/08/22 01/20/24 History ezetimibe 10 mg tablet (Zetia) 10 mg PO DAILY 11/08/22 01/20/24 History fexofenadine 180 mg tablet 180 mg PO HS 11/08/22 01/20/24 History folic acid 1 mg tablet 1 mg PO DAILY #30 tabs 04/07/23 01/20/24 Rx Oxygen Home 06/12/23 01/20/24 History carbamazepine 400 mg 400 mg PO BID 06/12/23 01/20/24 History tablet,extended release,12 hr oxycodone-acetaminophen 5 mg-325 1 tab PO Q8H PRN Pain 06/12/23 01/20/24 History mg tablet amlodipine 2.5 mg tablet 2.5 mg PO DAILY 09/12/23 01/20/24 History gabapentin 300 mg capsule 300 mg PO .COMPLEX 09/12/23 01/20/24 History amoxicillin 500 mg capsule 2,000 mg PO DIRECTED PRN 1 HR 01/20/24 01/20/24 History PRIOR TO DENTAL PROCEDURES aspirin 81 mg tablet,delayed 81 mg PO DAILY 01/20/24 01/20/24 History release calcium carbonate 600 mg-vitamin 2 cap PO DAILY 01/20/24 01/20/24 History D3 12.5 mcg (500 unit) capsule (Calcium 600 with Vitamin D3) cyanocobalamin (vitamin B-12) 1,000 mcg PO DAILY 01/20/24 01/20/24 History 1,000 mcg tablet (Vitamin B-12) duloxetine 60 mg capsule,delayed 60 mg PO HS 01/20/24 01/20/24 History release (Cymbalta) evolocumab 140 mg/mL subcutaneous 140 mg subcut .[id number] 01/20/24 01/20/24 History pen injector (Repatha SureClick) melatonin 10 mg tablet 10 mg PO HS 01/20/24 01/20/24 History semaglutide 2 mg/dose (8 mg/3 mL) 2 mg subcut WK 01/20/24 01/20/24 History subcutaneous pen injector (Ozempic) Past Med/Surg History Problem List (Updated 01/20/24 @ 22:03 by Clarita Forbes PA-C) Headache Neck stiffness Hypertensive crisis Abdominal pain, acute, epigastric (Acute) Nausea & vomiting (Acute) Gastroparesis (Acute) Disc disorder of lumbar region Essential tremor Malignant neoplasm of upper-outer quadrant of right breast in female, estrogen receptor positive (Chronic 04/25/21) Status post right knee replacement (~12/2021) CHI (closed head injury) (Acute) Fracture of inferior orbital wall (Acute) Fall (Acute) Phalanx, proximal fracture of finger Fracture of proximal phalanx of digit of right hand Hyperlipidemia Type 2 diabetes mellitus Finger fracture Medical History History of recent fall 05/2022. Hospitalized at [facility]. facial and finger fractures. HEALED. Glaucoma ? IF OFFICIAL DX/ ELEVATED PRESSURES Anxiety and depression HX: breast cancer R partial mastectomy and radiation, no chemo-denies limb restriction Coronary artery calcification Dependent edema on diuretic, chronic per pt without change or worsening Polyneuropathy History of skin cancer Diabetic neuropathy B/L feet, legs CKD (chronic kidney disease) stage 3, GFR 30-59 ml/min Follows with [facility] PCP and internal medicine Pulmonary histoplasmosis Remote hx > chronic interstitial thickening and calcified granulomas noted on prior CXRs History of carotid stenosis s/p R/L carotid endarterectomy (2003) History of gastric ulcer > 40 yrs ago Diabetes mellitus, type 2 NIDDM Hearing deficit Left ear - no hearing aids Stroke 2003 - intermittent vertigo and occasional right sided weakness Hypertension controlled, stable per pt Sleep apnea BIPAP + 4L O2-compliant Asthma WELL CONTROLLED/ NO CURRENT RX FOR RESCUE INHALER Chronic diastolic (congestive) heart failure echo 12/2019 - EF 55-60%, grade I diastolic dysfunction Dyslipidemia Trigeminal neuralgia s/p trigeminal decompression (). On carbamazepine, follows with [facility] (Dr. Jackson) Surgical History H/O partial mastectomy R breast S/P carotid endarterectomy HX R&L History of total knee replacement RIGHT TKA LEFT TKA S/P lumpectomy, right breast With right axillary SLN biopsy on 06/06/[address] Goel History of cataract surgery RT/LEFT History of total shoulder replacement Left shoulder replacement (12/25/18): Grade 3 view (unable to read details regarding grade view on anesthesia records), Glidescope #3, ETT 7.5 + PNB at [facility] Hx of dilation and curettage History of surgical removal of ganglion cyst History of surgery Trigeminal decompression of 5th nerve 1990s History of total shoulder replacement Right (11/14/17): Elective Glidescope #3 due to Grade 3 View and difficulty visualizing cords, ETT #7.0. Patient re-positioned twice. History of cholecystectomy History of esophagogastroduodenoscopy (EGD) History of colonoscopy w/ polypectomy History of tonsillectomy and adenoidectomy History of tooth extraction Fatty tumor "removed" Family History Father , age 96 of a stroke Coronary heart disease Stroke Mother , age 79 of an NE Myocardial infarction Brother Ankylosing spondylitis of site in spine Daughter No problems noted. Son No problems noted. 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 How many Children do You have: 1 Other Information That Helps Us Care for You: No Feels Safe at Home: Yes Safety Concerns: Feels Safe At This Time Diet: regular caffeine: Yes (4 cups/week) during the past year weight has: remained stable Assistive Devices: Glasses Review of Systems Review of Systems: At least ten systems reviewed and negative, except as noted in the HPI. Physical Exam Physical Exam: General: NAD, sitting up in bed, very pleasant, conversing appropriately. A+Ox3, euthymic affect. HEENT: Normocephalic, atraumatic. Conjunctivae normal, anicteric sclerae, oropharynx normal. Respiratory: Normal respiratory effort, lungs clear to auscultation, no wheeze, rales, rhonchi. No accessory muscle use. Cardiovascular: Regular rate, rhythm, no murmur, normal peripheral pulses, no BLE edema. Vessels: No JVD. Abdomen/GI: Normal bowel sounds, soft, nontender, no hepatosplenomegaly. Extremities/Musculoskeletal: No cyanosis or clubbing, extremities motor strength intact bilaterally, moves all extremities. Neurologic: PERRL, EOMI, accommodation nl, no face palsy, no dysarthria, CN's II-XI not formally tested but appear grossly intact bilaterally. Skin: No rashes, normal color, warm/dry. Results & Data Results & Data Vital Signs (Past 12 Hours) Vital Signs Temp Pulse Pulse Resp BP BP Pulse Ox 01/20/24 15:03 71 20 98 01/20/24 13:20 61 01/20/24 13:00 66 18 191/85 H 90 01/20/24 12:39 36.8 C 72 18 221/90 H 89 L O2 Del Method 01/20/24 15:03 Room Air 01/20/24 13:20 01/20/24 13:00 01/20/24 12:39 Room Air Laboratory Results Short CBC 01/20/24 Range/Units 13:35 WBC 8.34 (4.8-10.8) K/ul Hgb 13.3 (12.0-16.0) g/dl Hct 41.8 (37.0-47.0) % Plt Count 218 (130-400) K/uL BMP 01/20/24 13:35 Sodium 141 Potassium 3.9 Chloride 98 Carbon Dioxide 36 H BUN 12 Creatinine 0.93 Glucose 96 Calcium 10.8 H Liver Function 01/20/24 Range/Units 13:35 Total Bilirubin 0.4 (0.2-1.0) mg/dl AST 15 (13-39) U/L ALT 13 (7-52) U/L Alkaline Phosphatase 136 H (34-104) U/L Albumin 4.2 (3.4-5.0) gm/dl Diagnostic Findings Chest CTA 01/20/24 12:57 CT angio chest PE protocol CLINICAL HISTORY: PE/dissection (hypoxic) TECHNIQUE: Multidetector row helical CT of the chest was performed with angiographic protocol. Coronal and sagittal reformations were obtained. Coronal and sagittal MIPS were obtained from the axial data set and were submitted for review. Automated dose lowering techniques and/or adjustment according to patient size were utilized for this exam. Comparison: Comparison is made to CT chest 11/09/2022 FINDINGS: Lungs and pleura: Peripheral interstitial thickening is seen. There is scarring in the right middle lobe. Heart and pericardium: Cardiomegaly is seen with biatrial enlargement. Vessels: No evidence of pulmonary embolism. Moderate atherosclerosis is seen. Mediastinum and fili: Calcified subcarinal lymph nodes are seen. Additional subcentimeter nodes are seen. Chest wall and lower neck: Unremarkable. Abdomen: Calcifications are seen in the spleen. Bones: Degenerative changes in the thoracic spine. Bilateral shoulder ar throplasties are seen. IMPRESSION: No acute abnormality and in particular no evidence of pulmonary embolus or aortic dissection. ACT 112: Negative or not required by law. Electronically signed by: Ho Landers M.D. 01/20/2024 3:[address] 01/20/24 12:57 CT OF THE HEAD WITHOUT CONTRAST CLINICAL HISTORY: Headache, vertigo, neck pain; dissection COMPARISON STUDY: Head CT May 14, 2022. TECHNIQUE: Helical axial images of the head were obtained without IV contrast. Automated exposure control was utilized for the study. A dose lowering technique was utilized adhering to the principles of ALARA. FINDINGS: No acute intracranial hemorrhage, midline shift or mass effect is present. White matter hypodensities are unchanged and favor small vessel disease. The ventricular system is unremarkable. The basal cisterns are patent. No extra-axial collections are present. There are no findings to suggest acute dural sinus thrombosis or acute territorial infarct. No significant calvarial abnormalities are present. Left occipital craniectomy is again noted. Visualized portions of the sinuses and mastoid air cells are clear. IMPRESSION: No acute intracranial findings. ACT 112: Negative or not required by law. Electronically signed by: Vj De Souza M.D. 01/20/2024 3:03 PM Head CTA 01/20/24 12:57 CTA ANGIOGRAPHY OF THE HEAD CLINICAL HISTORY: Headache, vertigo, neck pain; dissection COMPARISON STUDY: Head CT May 14, 2022. TECHNIQUE: Helical axial images of the head were obtained following uneventful intravenous administration of 119 cc of Optiray. Sagittal and coronal reconstructions were viewed as well as maximal intensity projections on an independent 3-D workstation. Automated exposure control was utilized for the study. A dose lowering technique was utilized adhering to the principles of ALARA. FINDINGS: No acute intracranial hemorrhage, midline shift or mass effect is present. Ventricular system is stable. Basal cisterns are patent. The left occipital craniectomy is unchanged in appearance. The bilateral M1, M2, A1 and A2 segments are patent. There is mild plaque within the cavernous carotids without stenosis. No intracranial vascular occlusion is identified. The posterior circulation is intact. There is no intracranial aneurysm. Major dural sinuses are patent. Right vertebral artery is dominant. IMPRESSION: No large vessel occlusion. No intracranial aneurysm. ACT 112: Negative or not required by law. Electronically signed by: Vj De Souza M.D. 01/20/2024 3:07 PM Neck CTA 01/20/24 12:57 CT ANGIOGRAM OF THE NECK CLINICAL HISTORY: Headaches. Vertigo. Neck pain. COMPARISON STUDY: CT of the neck dated 12/27/2019. TECHNIQUE: Following the IV administration of 119 of Optiray 320, CT angiogram of the neck was performed from the aortic arch to the skull base. Images are reviewed in the axial, sagittal, and coronal planes. 3-D MIPS images are created and assessed. IV contrast was administered without complication. All measurements were calculated based on NASCET criteria. A dose lowering techniq ue was utilized adhering to the principles of ALARA. CT DOSE: 2199.28 mGy.cm FINDINGS: Thoracic aorta: There is atherosclerotic calcification of the thoracic aorta. Visualized portions of the thoracic aorta are normal in caliber. The aortic arch demonstrates 4-vessel variant anatomy. The left vertebral artery arises directly from the thoracic aorta. Right carotid arterial system: The right common carotid artery is patent, as are the right internal and external carotid arteries. Calcified plaque is seen in the carotid bulb. Advanced atherosclerotic change is seen in the carotid bulb with ulcerated plaque. Left carotid arterial system: The left common carotid artery is widely patent, as are the left internal and external carotid arteries. Calcified plaque is seen in the carotid bulb. Vertebral arteries: The vertebral arteries are widely patent bilaterally noting right-sided dominance. No dissection is seen Subclavian arteries: Widely patent bilaterally. Intracranial vasculature: The visualized intracranial vessels at the skull base are patent. Jugular veins: Patent bilaterally. Brain parenchyma: The visualized brain parenchyma the skull base is within normal limits. Lung apices: Partially visualized upper lobe lung parenchyma appears clear. Soft tissues: The visualized pharyngeal soft tissues are normal in appearance noting angiographic phase technique. The oropharyngeal airway appears widely patent. The salivary and thyroid glands are normal in appearance. No cervical lymphadenopathy is seen. Skeletal structures: The skeletal structures are osteopenic. There is evidence of previous left occipital craniectomy. The visualized calvarium at the skull base otherwise appears intact. The imaged cervical spine is maintained and noting multilevel spondylosis. Sinuses and mastoids: The visualized paranasal sinuses are clear. The mastoid air cells are well pneumatized. IMPRESSION: 1. There is no evidence of hemodynamically cystic and stenosis involving the carotid or vertebral arteries. 2. Advanced atherosclerotic change is seen in the right carotid bulb with large ulcerated plaque. 3. Additional findings as above. ACT 112: Negative or not required by law. Electronically signed by: Michael Rajan M.D. 01/20/2024 3:05 PM Medications Administered Discontinued Medications Hydralazine HCl (Hydralazine Hcl 20 Mg/Ml Vial) 5 mg IV NOW STA Stop: 01/20/24 16:25 Last Admin: 01/20/24 16:42 Dose: 5 mg Documented By: ELISABET Hydralazine HCl (Hydralazine Hcl 20 Mg/Ml Vial) Confirm Administered Dose 20 mg .ROUTE .STK-MED ONE Stop: 01/20/24 16:23 Last Admin: 01/20/24 16:42 Dose: Not Given Documented By: ELISABET Ioversol (Optiray 320 125ml) 119 ml IV ONCE ONE Stop: 01/20/24 14:24 Last Admin: 01/20/24 14:27 Dose: 119 ml Documented By: ANAID Code Status & VTE Plan Code Status FULL CODE VTE Prophylaxis Plan VTE Prophylaxis will be ordered: Yes (3) Headache Headache type: other headache syndrome Qualified Code(s): G44.89 - Other headache syndrome
[2024-01-20] MEDS: hydrALAZINE HCL 20 MG/ML VIAL ONE (16:42)
[2024-01-20] MEDS: hydrALAZINE HCL 20 MG/ML VIAL IV STA (16:42)
[2024-01-20] MEDS: ACETAMINOPHEN 500 MG TAB PO STA (18:05)
[2024-01-20] MEDS: CYCLOBENZAPRINE HCL 5 MG TAB PO STA (18:05)
[2024-01-20] MEDS ORDERED: POLYETHYLENE (MIRALAX) 17 GM PACK PO PRN (18:21)
[2024-01-20] MEDS ORDERED: GLUCOSE 10 TAB/TUBE PO PRN (18:21)
[2024-01-20] MEDS ORDERED: PHARMACY GLYCEMIC MGMT CONSULT PRN (18:21)
[2024-01-20] MEDS ORDERED: ONDANSETRON INJ 2 MG/ML 2 ML VIAL IV PRN (18:21)
[2024-01-20] MEDS ORDERED: GLUCOSE 40% GEL 15 GM TUBE PO PRN (18:21)
[2024-01-20] MEDS ORDERED: GLUCAGON FOR INJ 1 MG VIAL SQ PRN (18:21)
[2024-01-20] MEDS ORDERED: ALBUTEROL HFA 8 GM INHALER INH PRN (18:21)
[2024-01-20] MEDS ORDERED: CARBOHYDRATES FOR HYPOGLYCEMIA PO PRN (18:21)
[2024-01-20] MEDS ORDERED: DEXTROSE 50% 50 ML SYRINGE IV PRN (18:21)
--- NOTE | 2024-01-20 18:56 | Pharmacy Report ---
Pharmacy Glycemic Short Note 2 - Date of Service January 20, 2024 - Glycemic Short BSG Results (Last 24 hours): 01/20/24 13:35 Glucose 96 OUTPATIENT ANTIDIABETIC REGIMEN: * Lantus 30 units SC HS * Jardiance 25 mg PO AM * Ozempic 2 mg SC every Friday * HbA1c pending for 01/21/24 ASSESSMENT: * 78 yo F admitted on 01/20/24 secondary to hypertensive urgency. Pharmacy has been consulted to assist with inpatient glycemic management. Patient is a Type 2 diabetic as an outpatient. Please refer to outpatient regimen and most recent HbA1c above. * Ordered a T2DM diet. Will follow to see if she tolerates diet. * Serum BSG was 136 mg/dL earlier today. * Will start Novolog based on weight/stress of 2. Lantus will be reduced by ~33% from home dose and given at bedtime. PLAN FOR INPATIENT GLYCEMIC CONTROL: * Hold outpatient oral diabetes medications * Basal insulin * Lantus 20 units SC HS * Bolus insulin * NovoLog per scale ACHS or Q6hrs while NPO * Goal Range: Low 110 mg/dL - High 140 mg/dL * Correction Factor: 25 mg/dL/unit * Nutritional / Prandial insulin per carb ratio of 1 unit per 8 grams CHO consumed
[2024-01-20] MEDS: FLUTICASONE PROPIONATE NA SPR 16 GM BTL SCH (20:23)
[2024-01-20] MEDS: ACETAMINOPHEN 500 MG TAB PO SCH (20:27)
[2024-01-20] MEDS: FEXOFENADINE HCL 180 MG TAB PO SCH (20:28)
[2024-01-20] MEDS: DULoxetine HCL 60 MG CAP PO SCH (20:28)
[2024-01-20] MEDS: LABETALOL HCL 200 MG TAB PO SCH (20:29)
[2024-01-20] MEDS: MONTELUKAST SODIUM 10 MG TABLET PO SCH (20:30)
[2024-01-20] MEDS: carBAMazepine XR 200 MG TABCR PO SCH (20:30)
[2024-01-20] MEDS: hydrALAZINE HCL 20 MG/ML VIAL IV PRN (20:33)
[2024-01-20] MEDS: INSULIN ASPART PER UNIT CHARGE SC SCH (20:51)
[2024-01-20] MEDS: LANTUS PER UNIT CHARGE SC SCH (21:01)
[2024-01-20] MEDS: CYCLOBENZAPRINE HCL 5 MG TAB PO PRN (21:06)
--- OUTSIDE RECORDS SUMMARY | 2024-01-20 21:54 | External Medical Summary | Summary of Care ---
Author Name Unknown Organization [facility] Address [address] [place] [address] Phone [phone] Care Team Providers Care Music Therapy Specialist Name Role Phone Ferny Sr DO Primary Care Provider [phone] Encounter Details Date Type Department Care Team (Late st Contact Info) Description 01/13/2024 Patient Reported Data Patient Survey [facility] Allergies Active Allergy Reactions Criticality Noted Date Comments Clarithromycin Other (Please comment) Low 1 "Burning mouth" sensation. documented as of this encounter (statuses as of 01/13/2024) Medications Medication Sig Dispensed Refills Start Date End Date Status ONETOUCH ULTRA SYSTEM W/DEVICE KITIndications:DM type 2, goal A1c below 7 test once daily; dx 250.00 1 Kit 0 10/14/2012 Active VITAMIN C 500 MG PO TABS Take 1 Tablet by mouth daily at noon. 11/04/2013 Active ONETOUCH ULTRASOFT LANCETS MISCIndications:DM type 2, goal A1c below 7 test once daily; dx 250.00 1 Box 5 11/12/2013 Active fluticasone (FLONASE) 50 MCG/ACT nasal spray Administer 2 Sprays into each nostril 2 times a day. 16 g 5 01/11/2020 Active Additional Information Patient taking differently:2 [place] Each NostrilHS, Indications: allergies, Reported on 08/13/2022 fexofenadine (JANNY ALLERGY) 180 MG Tablet Take 1 Tab by mouth daily. 01/11/2020 Active Additional Information Patient taking differently:180 mg OralHS, Indications: allergies, Reported on 08/13/2022 BiPAP every night at bedtime. Active Vitamin B12 1000 MCG Oral Tablet Extended Release Take 1,000 mcg by mouth daily. Active Vitamin D High Potency 25 MCG (1000 UT) Oral Capsule (Cholecalciferol) Take 1 Capsule by mouth daily. Active GNP Calcium 1200 5095-4118 MG-UNIT Oral Tablet Chewable Take 1 Tablet by mouth daily. Active Aspirin EC 81 MG Oral Tablet Delayed Release Take 1 Tablet by mouth in the morning. 01/04/2022 Active Azelastine HCl 137 MCG/SPRAY Nasal Solution instill 2 sprays into each nostril twice a day 90 mL 02/06/2022 Active Additional Information Patient taking differently: 2 sprays once daily, Reported on 07/15/2022 Docusate Sodium 100 MG Oral Capsule (Colace) Take 2 Capsules by mouth daily. Active oxygen IN GASIndications:Sleep apnea in adult 4 LPM bled through BIPAP during hours of sleep. 1 Each 04/10/2022 Active OneTouch Ultra Blue In Vitro Strip (Glucose Blood)Indications:Ty pe 2 diabetes, HbA1C goal < 8% ([facility]) TEST 3 X DAILY DX E11.9 100 Strip 5 06/11/2022 Active ProAir HFA 108 (90 Base) MCG/ACT Inhalation Aerosol SolutionIndications: Acute cough,COPD, group A, by GOLD 2017 classification ([facility]) Inhale 2 Puffs by mouth in the morning and 2 Puffs at noon and 2 Puffs in the evening and 2 Puffs before bedtime. 8 g 09/13/2022 Active Empagliflozin 25 MG Oral Tablet (Jardiance)Indicatio ns:Type 2 diabetes mellitus with diabetic peripheral angiopathy without gangrene, without long-term current use of insulin ([facility]),Type 2 diabetes mellitus with peripheral neuropathy ([facility]),Type 2 DM with CKD stage 3 and hypertension ([facility]),Type 2 diabetes, HbA1C goal < 8% ([facility]) Take 1 Tablet by mouth in the morning. 100 Tablet 2 08/04/2023 Active Letrozole 2.5 MG Oral Tablet (Femara)Indications: Malignant neoplasm of right breast in female, estrogen receptor positive, unspecified site of breast ([facility]) Take 1 Tablet by mouth in the morning. 100 Tablet 3 08/04/2023 Active amLODIPine Besylate 2.5 MG Oral Tablet (Norvasc)Indications :Type 2 DM with CKD stage 3 and hypertension (HCC) Take 1 Tablet by mouth in the morning. 100 Tablet 3 08/13/2023 Active DULoxetine HCl 60 MG Oral Capsule Delayed Release Particles (Cymbalta) Take 1 Capsule by mouth at bedtime. 100 Capsule 2 08/20/2023 Active Potassium Chloride ER 10 MEQ Oral Tablet Extended ReleaseIndications:C hronic diastolic congestive heart failure (HCC) Take 1 Tablet by mouth in the morning. 100 Tablet 2 08/20/2023 Active Montelukast Sodium 10 MG Oral Tablet (Singulair)Indicatio ns:Allergic rhinitis Take 1 Tablet by mouth every evening. 100 Tablet 08/25/2023 Active Ozempic (1 MG/DOSE) 4 MG/3ML Subcutaneous Solution Pen-injector (Semaglutide (1 MG/DOSE))Indications :Type 2 DM with CKD stage 3 and hypertension (HCC) Inject 1 mg under the skin once a week. 9 mL 08/25/2023 Active Folic Acid 1 MG Oral Tablet Take 1 Tablet by mouth in the morning. 100 Tablet 08/25/2023 Active Repatha SureClick 140 MG/ML Subcutaneous Solution Auto-injector (evolocumab) Inject 140 mg (1 pen) under the skin every 14 days. Remove from refrigerator 30 minutes prior to injection. 6 mL 08/27/2023 Active Gabapentin 300 MG Oral Capsule (Neurontin)Indicatio ns:neuropathy Take one capsule by mouth in the evening and two capsule at bedtime 300 Capsule 09/04/2023 Active Labetalol HCl 200 MG Oral Tablet (Normodyne)Indicatio ns:HTN, goal: symptom mgmt only,Resistant hypertension,HTN, goal below 150/90,Fatigue, unspecified type Take 1 Tablet by mouth in the morning and 1 Tablet before bedtime. 200 Tablet 09/04/2023 Active Ezetimibe 10 MG Oral Tablet (Zetia)Indications:D yslipidemia, goal LDL below 70,Hyperlipidemia with target LDL less than 70,PAD (peripheral artery disease) (HCC) Take 1 Tablet by mouth in the morning. 100 Tablet 09/11/2023 Active Lisinopril 40 MG Oral TabletIndications:HT N, goal below 130/80 Take 1 Tablet by mouth in the morning. 100 Tablet 3 09/11/2023 Active Insulin Glargine Solostar 100 UNIT/ML Subcutaneous Solution Pen-injectorIndicati ons:Type 2 diabetes, HbA1C goal < 8% ([facility]),Type 2 DM with CKD stage 3 and hypertension ([facility]) Inject 30 Units under the skin every evening. 30 mL 2 09/22/2023 Active Amoxicillin 500 MG Oral Capsule (Amoxil) Take 4 Capsules by mouth once. One hour prior to appointment 09/29/2023 Active Melatonin 10 MG Oral Tablet Take 1 Tablet by mouth at bedtime. Active carBAMazepine ER 400 MG Oral Tablet Extended Release 12 Hour (Tegretol-Xr) Take 1 Tablet by mouth in the morning and 1 Tablet before bedtime. 200 Tablet 3 10/28/2023 Active Pen [place] 32G X 4 MMIndications:Type 2 diabetes mellitus with peripheral neuropathy ([facility]) Use once daily with Lantus as directed 100 Each 3 11/12/2023 Active Atorvastatin Calcium 80 MG Oral Tablet (Lipitor)Indications :Dyslipidemia, goal LDL below 160 Take 1 Tablet by mouth in the morning. 100 Tablet 2 11/24/2023 Active Furosemide 40 MG Oral Tablet (Lasix) Take 1 Tablet by mouth in the morning and 1 Tablet before bedtime. 200 Tablet 3 12/10/2023 Active oxyCODONE-Acetaminop hen 5-325 MG Oral Tablet (Percocet)Indication s:Disc disorder of lumbar region Take 1 Tablet by mouth every 8 hours as needed for Pain, Severe. 90 Tablet 12/29/2023 Active documented as of this encounter (statuses as of 01/13/2024) Active Problems Problem Noted Date Diagnosed Date Osteoporosis without current pathological fractu re 08/27/2023 intermediate current use of aromatase inhibitor Type 2 diabetes mellitus wit h diabetic peripheral angiopathy without gangrene, with long-term current use of insulin 07/29/2023 Malignant neoplasm of upper- outer quadrant of right female breast 07/29/2023 COPD, group A, by GOLD 2017 classification 08/19 Overview: Per COPD GOLD Classification Chronic diastolic congestive heart failure 07/15 Last Assessment & Plan: Current Status: "Stable" for patient / At or near baseline Degree of Condition Awareness: Demonstrates very good awareness of condition, disease course, and prognosis "RED FLAG" HF Symptoms: o Leg Swelling (Examples: "I can't wear certain socks or shoes", "My pants feel tight") o Increased dyspnea on exertion (Example: "I can't walk to the kitchen or up the stairs") Current Heart Failure Classifications: o With ordinary activity such as doing housework, yard work or shopping ([facility] CLASS II) Diagnostic Review: Recent Labs Units 11/13/22 1656 09/10/22 1045 03/13/22 1145 12/19/21 1042 LEFT VENTRICULAR EJECTION FRACTION % -- -- -- 55 ESTIMATED GLOMERULAR FILTRATION RATE - [facility] mL/min 63 82 < > -- HGB - [facility] g/dL -- 13.0 < > -- < > = values in this interval not displayed. Medication Regimen: o Beta Maximino Therapy: Labetalol o CELINE Inhibitor/ARB Therapy: Lisinopril o Diuretic therapy: Lasix Self - Management Plan o Double dose of Furosemide for 3 days Exacerbation Plan o BMP o Pro-BNP Folic acid deficiency 12/07/2021 B12 deficiency 12/07/2021 Vitamin D deficiency 12/07/2021 Primary open-angle glaucoma, bilateral, mild sta ge 10/15/2021 Malignant neoplasm of right breast in female, estrogen receptor positive 04/30/2021 Last Assessment & Plan: In remission -continue Femara Tremor 08/24/2019 Type 2 diabetes mellitus wit h diabetic peripheral angiopathy without gangrene 12/15/2018 Type 2 diabetes mellitus with peripheral neuropa thy 12/15/2018 Last Assessment & Plan: Regimen recently changed by Neurology -continue Tegretol 200 mg twice daily, gabapentin 300 mg 4 times daily Type 2 DM with CKD stage 3 and hypertension 08/08 Last Assessment & Plan: GFR in the 60s Current Status: "Stable" for patient / At or near baseline Degree of Condition Awareness: Demonstrates very good awareness of condition, disease course, and prognosis "RED FLAG" Diabetic symptoms: o none Goal HgbA1c o <7 Diabetic Complications o Vascular (examples: PVD, PAD, CAD, CVA) Medication Regimen o Basal/Long Acting Insulin o GLP-1 Agonist (ex: Victoza, Trulicity, Ozempic) o SGLT (ex: Jardiance) DM Secondary Prevention o CELINE Inhibitor / ARB o Moderate-High Intensity Statin o Aspirin Controlled substance agreement signed 05/21/2017 MEDICATION USE AGREEMENT 05/21/2017 Bronchiectasis, uncomplicated 03/25/2017 Overview: History of histoplasmosis Last Assessment & Plan: Currently stable -continue Singulair -has albuterol MDI and also nebulizer as needed Hx of nonmelanoma skin cancer 01/25/2015 Overview: Hx SCC L dorsal hand 08/2014 Type 2 diabetes, HbA1C goal < 8% 08/05/2013 Overview: ICD-10 update of inactive term History of tobacco use 03/15/2013 Disc disorder of lumbar region 10/06/2012 Last Assessment & Plan: Controlled substance agreement with Dr. Sr -has Percocet p.r.n. Hyperlipidemia with target LDL less than 70 03/08 HX-MALIG SKIN MELANOMA - LM R neck 08/1009 HTN, goal below 150/90 05/24/2009 Overview: Modified per HTN protocol #16. Last Assessment & Plan: BP elevated today. Was also elevated at neurology appointment earlier this week. Asymptomatic. -patient has blood pressure cuff at home. Encouraged to take at least once per day. Patient in agreement. -continue Norvasc, labetalol, lisinopril at current dose for now CEREBROVASCULAR DZ, POST-STROKE 10/18/2008 Overview: Modified per CVA protocol #8 Last Assessment & Plan: At baseline -continue atorvastatin, Zetia, aspirin Benign neoplasm of colon 09/04/2008 Overview: hyperplastic polyps, recommend f/u in 2 years SLEEP APNEA, UNSPECIFIED- BIPAP and oxygen 06/08 Overview: with 4 LPM [facility] Last Assessment & Plan: Compliant with BiPAP ADVANCE DIRECTIVE INFORMATION 12/07/2004 Overview: Yes, Patient instructed to provide copy of advance directive for provider to review and to be scanned into Electronic Medical Record Trigeminal neuralgia Mixed rhinitis Irritable bowel syndrome documented as of this encounter (statuses as of 01/13/2024) Resolved Problems Problem Noted Date Diagnosed Date Resolved Date Diabetes mellitus with stage 3 chronic kidney disease 07/15/2022 07/15/2022 Diabetes mellitus 07/15/2022 09/10/2022 Hypertensive heart disease without CHF 01/04/2022 07/15/2022 Class 2 severe obesity with serious comorbidity and body mass index (BMI) of 39.0 to 39.9 in adult 01/04/2022 12/03/2023 Open-angle glaucoma 06/14/2021 10/16/19 22 Atherosclerosis of [place] co ronary artery without angina pectoris 03/26/2021 03/26/2021 Chronic obstructive pulmonary disease 01/24/2020 08/21/2022 Overview: Per COPD GOLD Classification Body mass index (BMI) of 40. 0 to 44.9 in adult 08/17/2019 08/15/2021 Overview: Per Obesity protocol Gastroesophageal reflux dise ase without esophagitis 02/02/2018 09/14/2020 Diabetes mellitus with stage 3 chronic kidney disease 10/14/2017 09/03/2018 Overview: Per CKD protocol #1 Morbid (severe) obesity due to excess calories 03/25/2017 05/21/2017 Pulmonary histoplasmosis 11/23/2012 Obesity, Class II, BMI 35-39 .9, isolated (see actual BMI) 04/02/2011 08/18/2019 Overview: Per Obesity protocol Type 2 diabetes mellitus wit h hemoglobin A1c goal of less than 7.0% 09/20/2010 09/20/2010 Overview: ICD-10 update of inactive term Lipoma 08/23/2010 05/21/2017 Overview: ICD-10 update of inactive term Severe obesity with body mas s index (BMI) of 35.0 to 39.9 with serious comorbidity 12/18/2009 Overview: Per Obesity Protocol, #19 ICD-10 update of inactive diagnosis Carotid artery stenosis with cerebral infarction over 8 weeks ago 12/22/2008 02/02/2018 Overview: Modified per acute carotid stenosis protocol #10 Benign neoplasm of colon 05/01/2007 Overview: Hyperplastic polyps--repeat 1 year Cerebrovascular event, ill-d efined, within last 8 weeks 02/24/2007 10/20/2008 Overview: Modified per CVA protocol #8 LATE EFFECT OF ADVERSE EFFEC T OF DRUG, MEDICINAL OR BIOLOGICAL SUBSTANCE 09/05/20062016 HERPETIC GINGIVOSTOMAT 06/18/200605/21 Carotid Stenosis, infarct w/in 8 wks 03/05/2004 12/22/2008 Overview: Modified per acute carotid stenosis protocol #10 HYPERTENSION NOS 05/25/2009 Overview: Modified per HTN protocol #16. Glaucoma 06/14/2021 Tobacco use disorder 015 Dyslipidemia, goal to be determined 04/02/2011 Acute peptic ulcer, unspecif ied site, without mention of hemorrhage, perforation, or obstruction 05/21/2017 documented as of this encounter (statuses as of 01/13/2024) Immunizations Name Administration Dates Next Due COVID-19 mRNA, LNP-s, No Pre serve, 2-Dose Series ([employer]) 05/14/2021,09/21/2020,08/31/2020 COVID-19, LNP-s, No Preserve , Jose-sucrose, Ages 12+ ([employer]) 12/11/2021 COVID-19, MRNA-LNP, 23-24, P F, 30 MCG/0.3 mL, 12 YRS AND ABOVE, IM (PFIZER-Comirnaty) 04/29/2023 Covid-19, Mrna, Lnp-s, Pf, B ivalent, 30 Mcg, IM, 12 yrs and above (Pfizer) 05/14/2022 Pneumococcal Conjugate Vacc, 13 Valent (Prevnar) 10/14/2014 Pneumococcal Polysaccharide PPV23 (Pneumovax) 04/02/2011 RSV Vac., Bivalent, Perfusio n F, Pf,0.5 Ml (Abrysvo) 05/02/2023 Season Influenza, Quad, PF, Adjuvanted, 65+ Yrs, IM (FLUAD) 04/26/2020 Seasonal Influenza, PF, 6 M & above, IM , (FluLaval or Fluzone) 04/13/2018,04/03/2017 Seasonal Influenza, Quadriva lent Hd (Fluzone Hd) 03/18/2023,03/13/2022,03/26/2021 Seasonal Influenza, Quadriva lent, No Preserve, IM 05/14/2016 Seasonal Influenza, Split, I IV3, With Preserve, Inj 03/28/2015,03/15/2014,04/05/2013,04/07,04/02/2011,05/01/2010,05/02/2009 ,04/06/2008,04/08/2007,04/17/2006 Seasonal Influenza, Trivalen t, Adjuvanted, 65+ yrs 04/16/2019 TD - Tetanus/Diptheria (ADULT) 09/16/2017 TDAP, Age 7 and older, IM (Adacel) 04/06/2008 Varicella Zoster Vaccine (Adult) 06/14/2009 Zoster Vaccine Recombinant (Shingrix) 09/15/2019 ,05/10/2019 documented as of this encounter Social History Tobacco Use Types Packs/Day Years Used Date Smoking Tobacco: Former Cigarettes 1 40 1 - 04/21/2012 Passive Smoke Exposure: Past Smokeless Tobacco: Never Comments:no passive smoke Alcohol Use Standard Drinks/Week Comments No 0 (1 standard drink = 0.6 oz pur e alcohol) PHQ-2 Answer Date Recorded PHQ Adult Total Score 0 07/29/2023 Hunger Vital Sign Answer Date Recorded Within the past 12 months, y ou worried that your food would run out before you got the money to buy more. Never true 07/29/19 24 Within the past 12 months, t he food you bought just didn't last and you didn't have money to get more. Never true 07/29/2023 Childcare Answer Date Recorded Do you feel overwhelmed with taking care of a child, family member or friend? No 07/29/2023 Does your family need help f inding childcare? (Household - for ages 0-17 years) Not on file 07/29/2023 Clothing Answer Date Recorded Have you been unable to get clothing when it was really needed? No 07/29/2023 Is your family able to get c lothes or diapers when needed? (Household - for ages 0-17 years) Not on file 07/29/2023 Personal Safety Answer Date Recorded Do you feel unsafe or have concerns for your saf ety? No 07/29/2023 Do you have concerns for you r family's safety? (Household - for ages 0-17 years) Not on file 07/29/2023 Utilities Answer Date Recorded Do you have trouble paying y our heating, water, or electric bill? No 07/29/2023 Is your family able to pay t he heat, water, or electric bill? (Household - for ages 0-17 years) Not on file 07/29/2023 Does your family have access to good internet? (Household - for ages 0-17 years) Not on file 07/29/2023 Employment Status Answer Date Recorded Are you unemployed or without regular income? No 07/29/2023 Does the household have a re gular source of income? (Household - for ages 0-17 years) Not on file 07/29/2023 Social Connections Answer Date Recorded How often do you feel lonely or isolated from th ose around you? Never 07/29/2023 Financial Resource Strain Answer Date R ecorded Do you have any trouble payi ng for your medications, or do you think you might in the future? No 07/29/2023 Does your family have troubl e paying for medicine? (Household - for ages 0-17 years) Not on file 07/29/2023 Transportation Needs Answer Date Record ed READ ONLY Do you have troubl e getting a ride to medical visits or work? Never True 07/29/2023 Does your family have a hard time getting a ride to doctors visits? (Household - for ages 0-17 years) Not on file 07/29/2023 Has lack of transportation k ept you from medical appointments, meetings, work, or from getting things needed for daily living? Check all that apply. (Adult - for ages 18 years and over) Not on file 07/29/2023 Do you (or your family) have trouble finding or paying for a ride (transportation)? (Household - for ages 0-17 years) Not on file 07/29/2023 Housing Stability Answer Date Recorded Do you currently live in a s helter or have no steady place to sleep at night? No 07/29/2023 READ ONLY Do you think you a re at risk of becoming homeless? No 07/29/2023 Does your family worry about paying for your home or becoming homeless? (Household - for ages 0-17 years) Not on file 0 07/29/2023 Are you homeless or worried that you might be in the future? (Adult - for ages 18 years and over) Not on file Are you (or your family) billy eless or worried that you might be in the future? (Household - for ages 0-17 years) Not on file Food Insecurity Answer Date Recorded Do you need food for this week? No 07/29/2023 Are you able to get enough f ood for your family? (Household - for ages 0-17 years) Not on file 07/29/2023 Does your family need food t his week? (Household - for ages 0-17 years) Not on file 07/29/2023 Do you always have enough fo od for your family? (Household - for ages 0-17 years) Not on file 07/29/2023 Sex and Gender Information Value Date Recorded Sex Assigned at Female 12/15/2018 8:58 AM EDT Gender Identity Female 12/15/2018 8:58 AM EDT Sexual Orientation Straight 12/15/2018 8: 58 AM EDT Job Start Date Occupation Industry Not on file Not on file Not on file documented as of this encounter Plan of Treatment Upcoming Encounters Date Type Department Care Team (Latest Contact Info) Description 02/04/2024 9:30 AM EDT Office Visit Orthopaedics [facility] [address] [place] [address] Gwyn Rayo MD [address] [place] [address] 02/24/2024 11:00 AM EDT Laboratory Laboratory [facility] [place] [address] [place] [phone] [place] [address] [place] [address] 02/24/2024 12:00 PM EDT Office Visit Hematology/Oncolog y [facility] [place] [address] [place] [phone] Michelle Ruffin CRNP [address] [facility] [place] [address] 03/02/2024 2:30 PM EDT Hospital Encounter [facility], Endoscopy Room [facility] [address] [place] [phone] Landon Kline MD [address] [place] [address] 03/02/2024 2:30 PM EDT - 03/02/2024 3:00 PM EDT Surgery [facility], Endoscopy Room [facility] [address] [place] [phone] Landon Kline MD [address] [place] [address] COLONOSCOPY FLEXIBLE PROXIMAL DIAGNOSTIC 04/02/2024 10:30 AM EDT Office Visit Sleep Disorders Ctr Jimi Hwang [place] [address] [place] [phone] Mara Archibald CRNP [address] [place] [address] 04/05/2024 10:40 AM EDT Office Visit Family Practice [address] [place] [address] [place] [phone] Ferny Sr, [address] [place] [address] 05/11/2024 11:15 AM EST Office Visit Dermatology [facility] [place] [address] [facility] [place], [place] [address] Kingston Huertas MD [address] [facility] [place], [place] [address] Scheduled Procedures Name Priority Associated Diagnoses Date/Ti me COLONOSCOPY FLEXIBLE PROXIMAL DIAGNOSTIC History of colonic polyps 03/02/2024 2:30 PM EDT Health Maintenance Due Date Last Done Comments Alpha-1 Antitrypsin 12/02/1963 COVID-19 Vaccine ( season) 2023 04/29/2023, 05/14/2022, 12/11/2021, Additional history exists Influenza Vaccine (FLU shot) (#1) 2024 03/18/2023, 03/13/2022, 03/26/2021, Additional history exists GFR 03/18/2024 09/16/2023, 08/08, 08/08/2023, Additional history exists HbA1c 06/04/2024 12/03/2023, 07/08, 03/18/2023, Additional history exists Depression Screening 07/29/2024 07/29/2023 CKD HGB USE SMARTSET 80821 09/15/202409/15, 09/16/2023, 08/26/2023, Additional history exists CKD PHOS USE SMARTSET 54059 09/15/202409/04, 08/26/2023, 11/21/2022, Additional history exists O2 ASSESSMENT COMPLETED IN PAST YEAR FOR COPD 10/27/2024 10/28/2023 Albumin/Creatinine Ratio 12/02/2024 024, 07/15/2022, 08/15/2021, Additional history exists Colonoscopy 12/02/2024 12/03/2023, 030 07/2022, 02/13/2015, Additional history exists Diabetic Foot Exam 12/02/2024 12/03/2023, 0 12/03/2023, 11/13/2022, Additional history exists Diabetic Eye Exam 12/15/2024 12/16/2023, , 06/09/2023, Additional history exists DXA Scan 08/18/2025 08/18/2023, 08/07, 08/15/2021, Additional history exists DTaP,Tdap,and Td Vaccines (3 - Td or Tdap) 09/17/2027 09/16/2017, 04/06/2008, 11/06/1995 Pneumococcal Vaccine: 65+ Years Completed 10/14/2014, 04/02/2011, 12/21/2002 Zoster Vaccines Completed 09/15/2019, 10/2018, 06/14/2009 Lung Cancer Screening Completed 05/16/2021 , 02/17/2020, 02/11/2019, Additional history exists RETIRED - COLONOSCOPY-ANNUAL AGES 18-100 Discontinued 09/04/2022, 02/13/2015, 08/19/2011, Additional history exists RETIRED - COLONOSCOPY-EVERY 5 YRS AGES 18-100 Discontinued 09/04/2022, 02/13/2015, 08/19/2011, Additional history exists VITAMIN D LEVEL ONCE IN A LIFETIME-USE SMARTSET# 53283 Completed 08/26/2023, 07/15/2022, 03/13/2022, Additional history exists HPV (Gardasil) Vaccine Aged Out No lo nger eligible based on patient's age to complete this topic Hepatitis B Vaccine Aged Out No longe r eligible based on patient's age to complete this topic MENINGOCOCCAL (MENACTRA/MENVEO) Aged Out No longer eligible based on patient's age to complete this topic documented as of this encounter Medical Devices Implanted Type Area Lens Dotter Device Identifier Shelf Expiration Date Model / Serial / Lot Lens Intraoc 18.5 - [id number] - [id number] Implanted:Qty: 1 on 04/03/2021 by Irvin Canchola MD at OR [facility] Left: Eye [employer] 01/03/2026 [id number] / [id number] / [id number] Lens Intraoc 18.5 - [id number] - [id number] Implanted:Qty: 1 on 04/10/2021 by Irvin Canchola MD at [facility] Right: Eye [employer] 01/03/2026 [id number] / [id number] / [id number] documented as of this encounter Care Teams Music Therapy Specialist Relationship Specialty Start Date End Date Ferny Sr DO [address] [place] [address] PCP - General Internal Medicine 12/18/23 documented as of this encounter
--- OUTSIDE RECORDS SUMMARY | 2024-01-20 21:54 | External Medical Summary | Summary of Care ---
Author Name Unknown Organization [facility] Address [address] [place] [address] Phone [phone] Care Team Providers Care Retail Selling Specialist Name Role Phone Ferny Sr DO Primary Care Provider [phone] Encounter Details Date Type Department Care Team [...] 01/11/2020 Active Additional Information Patient taking differently:2 Mullin Each NostrilHS, Indications: allergies, Reported on 08/13/2022 [...] by mouth daily. Active GNP Calcium 1200 9767-5690 MG-UNIT Oral Tablet Chewable Take 1 Tablet [...] pe 2 diabetes, HbA1C goal < 8% ([facility]) TEST 3 X DAILY DX E11.9 100 Strip 5 06/11/2022 Active ProAir HFA 108 (90 Base) MCG/ACT Inhalation Aerosol SolutionIndications: Acute cough,COPD, group A, by GOLD 2017 classification ([facility]) Inhale 2 Puffs by mouth in the morning and 2 Puffs at noon and 2 Puffs in the evening and 2 Puffs before bedtime. 8 g 09/13/2022 Active Empagliflozin 25 MG Oral Tablet (Jardiance)Indicatio ns:Type 2 diabetes mellitus with diabetic peripheral angiopathy without gangrene, without long-term current use of insulin ([facility]),Type 2 diabetes mellitus with peripheral neuropathy ([facility]),Type 2 DM with CKD stage 3 and hypertension ([facility]),Type 2 diabetes, HbA1C goal < 8% ([facility]) Take 1 Tablet by mouth in the morning. 100 Tablet 2 08/04/2023 Active Letrozole 2.5 MG Oral Tablet (Femara)Indications: Malignant neoplasm of right breast in female, estrogen receptor positive, unspecified site of breast ([facility]) Take 1 Tablet by mouth in the [...] ons:Type 2 diabetes, HbA1C goal < 8% ([facility]),Type 2 DM with CKD stage 3 and hypertension ([facility]) Inject 30 Units under the skin every [...] bedtime. 200 Tablet 3 10/28/2023 Active Pen [place] 32G X 4 MMIndications:Type 2 diabetes mellitus with peripheral neuropathy ([facility]) Use once daily with Lantus as directed [...] Osteoporosis without current pathological fractu re 08/27/2023 nursing home current use of aromatase inhibitor Type 2 [...] Open-angle glaucoma 06/14/2021 10/16/19 22 Atherosclerosis of koi co ronary artery without angina pectoris 03/26/2021 [...] mRNA, LNP-s, No Pre serve, 2-Dose Series (Adku) 05/14/2021,09/21/2020,08/31/2020 COVID-19, LNP-s, No Preserve , Jose-sucrose, Ages 12+ (Adku) 12/11/2021 COVID-19, MRNA-LNP, 23-24, P F, 30 [...] 02/04/2024 9:30 AM EDT Office Visit Orthopaedics [facility] [address] [facility] [address] Gwyn Rayo MD [address] [place] [address] 02/24/2024 11:00 AM EDT Laboratory Laboratory [facility] [place] [address] [place] [phone] Hope Hull, [facility] [address] [place] [address] 02/24/2024 12:00 PM EDT Office Visit Hematology/Oncolog y [facility] [place] [address] [place] [phone] Michelle Ruffin CRNP [address] [facility] [place] [address] 03/02/2024 2:30 PM EDT Hospital Encounter ENDO OSS[facility], Endoscopy Room [facility] [address] [place] [phone] Landon Kline MD [address] [place] [address] 03/02/2024 2:30 PM EDT - 03/02/2024 3:00 PM EDT Surgery ENDO OSS[facility], Endoscopy Room [facility] [address] [place] [phone] Landon Kline MD [address] [place] [address] COLONOSCOPY FLEXIBLE PROXIMAL DIAGNOSTIC 04/02/2024 10:30 AM EDT Office Visit Sleep Disorders Ctr [facility] [place] [address] [place] [phone] Mara Archibald CRNP [address] [place] [address] 04/05/2024 10:40 AM EDT Office Visit Family Practice [address] [place] [address] [place] [phone] Ferny Sr, [address] [place] [address] 05/11/2024 11:15 AM EST Office Visit Dermatology [facility] [place] [address] [facility] [place], [place] [address] Kingston Huertas MD [address] [facility] [place], [place] [address] Scheduled Procedures Name Priority Associated Diagnoses Date/Ti [...] Screening 07/29/2024 07/29/2023 CKD HGB USE SMARTSET 53959 09/15/202409/15, 09/16/2023, 08/26/2023, Additional history exists CKD PHOS USE SMARTSET 76565 09/15/202409/04, 08/26/2023, 11/21/2022, Additional history exists O2 [...] D LEVEL ONCE IN A LIFETIME-USE SMARTSET# 81646 Completed 08/26/2023, 07/15/2022, 03/13/2022, Additional history exists [...] this encounter Medical Devices Implanted Type Area Material Mixer Device Identifier Shelf Expiration Date Model / Serial / Lot Lens Intraoc 18.5 - [id number] - [id number] Implanted:Qty: 1 on 04/03/2021 by Irvin Canchola MD at OR [facility] Left: Eye BAUSCH & LOMB 01/03/2026 [id number] / [id number] / [id number] Lens Intraoc 18.5 - [id number] - [id number] Implanted:Qty: 1 on 04/10/2021 by Irvin Canchola MD at [facility] Right: Eye BAUSCH & LOMB 01/03/2026 [id number] / [id number] / [id number] documented as of this encounter Care Teams Retail Selling Specialist Relationship Specialty Start Date End Date Ferny Sr DO [address] [place] [address] PCP - General Internal Medicine 12/18/23 documented as of this encounter
--- OUTSIDE RECORDS SUMMARY | 2024-01-20 21:54 | External Medical Summary | Summary of Care ---
Author Name Unknown Organization [facility] Address [address] [place] [address] Phone [phone] Care Team Providers Care Silver Designer Name Role Phone Ferny Sr DO Primary Care Provider [phone] Encounter Details Date Type Department Care Team (Late st Contact Info) Description 01/16/2024 Documentation [facility] Linsey Cho, Health Rug Cutter Helper Allergies Active Allergy Reactions Criticality Noted Date Comments Clarithromycin Other (Please comment) Low 1 "Burning mouth" sensation. documented as of this encounter (statuses as of 01/16/2024) Medications Medication Sig Dispensed Refills Start Date [...] 01/11/2020 Active Additional Information Patient taking differently:2 Lynndyl Each NostrilHS, Indications: allergies, Reported on 08/13/2022 [...] by mouth daily. Active GNP Calcium 1200 8244-4548 MG-UNIT Oral Tablet Chewable Take 1 Tablet [...] pe 2 diabetes, HbA1C goal < 8% ([facility]) TEST 3 X DAILY DX E11.9 100 Strip 5 06/11/2022 Active ProAir HFA 108 (90 Base) MCG/ACT Inhalation Aerosol SolutionIndications: Acute cough,COPD, group A, by GOLD 2017 classification ([facility]) Inhale 2 Puffs by mouth in the morning and 2 Puffs at noon and 2 Puffs in the evening and 2 Puffs before bedtime. 8 g 09/13/2022 Active Empagliflozin 25 MG Oral Tablet (Jardiance)Indicatio ns:Type 2 diabetes mellitus with diabetic peripheral angiopathy without gangrene, without long-term current use of insulin ([facility]),Type 2 diabetes mellitus with peripheral neuropathy ([facility]),Type 2 DM with CKD stage 3 and hypertension ([facility]),Type 2 diabetes, HbA1C goal < 8% ([facility]) Take 1 Tablet by mouth in the morning. 100 Tablet 2 08/04/2023 Active Letrozole 2.5 MG Oral Tablet (Femara)Indications: Malignant neoplasm of right breast in female, estrogen receptor positive, unspecified site of breast ([facility]) Take 1 Tablet by mouth in the morning. 100 Tablet 3 08/04/2023 Active amLODIPine Besylate 2.5 MG Oral Tablet (Norvasc)Indications :Type 2 DM with CKD stage 3 and hypertension ([facility]) Take 1 Tablet by mouth in the morning. 100 Tablet 08/13/2023 Active DULoxetine HCl 60 MG Oral Capsule Delayed Release Particles (Cymbalta) Take 1 Capsule by mouth at bedtime. 100 Capsule 08/20/2023 Active Potassium Chloride ER 10 MEQ [...] ons:Type 2 diabetes, HbA1C goal < 8% ([facility]),Type 2 DM with CKD stage 3 and hypertension ([facility]) Inject 30 Units under the skin every [...] bedtime. 200 Tablet 3 10/28/2023 Active Pen [place] 32G X 4 MMIndications:Type 2 diabetes mellitus with peripheral neuropathy ([facility]) Use once daily with Lantus as directed [...] as of this encounter (statuses as of 01/16/2024) Active Problems Problem Noted Date Diagnosed Date [...] and oxygen 06/08 Overview: with 4 LPM [facility] Last Assessment & Plan: Compliant with BiPAP ADVANCE DIRECTIVE INFORMATION 12/07/2004 Overview: Yes, Patient instructed to provide copy of advance directive for provider to review and to be scanned into Electronic Medical Record Trigeminal neuralgia Mixed rhinitis Irritable bowel syndrome documented as of this encounter (statuses as of 01/16/2024) Resolved Problems Problem Noted Date Diagnosed Date Resolved Date Diabetes mellitus with stage 3 chronic kidney disease 07/15/2022 07/15/2022 Diabetes mellitus 07/15/2022 09/10/2022 Hypertensive heart disease without CHF 01/04/2022 07/15/2022 Class 2 severe obesity with serious comorbidity and body mass index (BMI) of 39.0 to 39.9 in adult 01/04/2022 12/03/2023 Open-angle glaucoma 06/14/2021 10/16/19 22 Atherosclerosis of elem co ronary artery without angina pectoris 03/26/2021 [...] as of this encounter (statuses as of 01/16/2024) Immunizations Name Administration Dates Next Due COVID-19 mRNA, LNP-s, No Pre serve, 2-Dose Series (Kongregate) 05/14/2021,09/21/2020,08/31/2020 COVID-19, LNP-s, No Preserve , Jose-sucrose, Ages 12+ (Kongregate) 12/11/2021 COVID-19, MRNA-LNP, 23-24, P F, 30 [...] on file Are you (or your family) bilyl eless or worried that you might be [...] on file documented as of this encounter Progress Notes * Linsey Cho, Health Rug Cutter Helper - 01/16/2024 12:44 PM EDT Did patient attend session 2 of 10 of the small group balance program? Yes: Patient attended session 2 of 10 of the small group balance program. Session 2 focused on a review of fall prevention in the home, lower extremity strengthening and hand eye coordination drills from the previous session. Pra cticed exercises as a group. Added: rock the boat drill. documented in this encounter Plan of Treatment Upcoming Encounters Date Type Department Care Team (Latest Contact Info) Description 01/20/2024 11:00 AM EDT Office Visit Family Practice [address] [place] [address] [address] [facility] [place] [address] Manly, Health Rug Cutter Helper [address] [address] 02/04/2024 9:30 AM EDT Office Visit Orthopaedics [facility] [address] [place] [address] Gwyn Rayo MD [address] [place] [address] 02/24/2024 11:00 AM EDT Laboratory Laboratory [facility] [address] [place] [phone] Naomi, Lab [facility] [address] [place] [address] 02/24/2024 12:00 PM EDT Office Visit Hematology/Oncolog y [facility] [address] [place] [phone] Michelle Ruffin CRNP [address] [place] [address] [place] [address] 03/02/2024 2:30 PM EDT Hospital Encounter ENDO [facility], Endoscopy Room [facility] [address] [place] [phone] Landon Kline MD [address] [place] [address] 03/02/2024 2:30 PM EDT - 03/02/2024 3:00 PM EDT Surgery ENDO [facility], Endoscopy Room [facility] [address] [place] [phone] Landon Kline MD [address] [place] [address] COLONOSCOPY FLEXIBLE PROXIMAL DIAGNOSTIC 04/02/2024 10:30 AM EDT [facility] [address] [facility] [place] [phone] Mara Archibald CRNP [address] [place] [address] 04/05/2024 10:40 AM EDT Office Visit Family Practice [address] [place] [address] 293 [facility] [place] [address] Ferny Sr, 293 [place] [address] 05/11/2024 11:15 AM EST Office Visit Dermatology [facility] 200 [place] [address] Kingston Huertas MD [address] [place] [address] Scheduled Procedures Name Priority Associated Diagnoses Date/Ti me COLONOSCOPY FLEXIBLE PROXIMAL DIAGNOSTIC History of colonic polyps 03/02/2024 2:30 PM EDT Health Maintenance Due Date Last Done Comments Alpha-1 Antitrypsin 12/02/1963 COVID-19 Vaccine (2022- season) 2023 04/29/2023, 05/14/2022, 12/11/2021, Additional history exists Influenza Vaccine (FLU shot) (#1) 2024 03/18/2023, 03/13/2022, 03/26/2021, Additional history exists GFR 03/18/2024 09/16/2023, 08/08, 08/08/2023, Additional history exists HbA1c 06/04/2024 12/03/2023, 07/08, 03/18/2023, Additional history exists Depression Screening 07/29/2024 07/29/2023 CKD HGB USE SMARTSET 74885 09/15/202409/15, 09/16/2023, 08/26/2023, Additional history exists CKD PHOS USE SMARTSET 15199 09/15/202409/04, 08/26/2023, 11/21/2022, Additional history exists O2 ASSESSMENT COMPLETED IN PAST YEAR FOR COPD 10/27/2024 10/28/2023 Albumin/Creatinine Ratio 12/02/2024 024, 07/15/2022, 08/15/2021, Additional history exists Colonoscopy 12/02/2024 12/03/2023, 07/2022, 02/13/2015, Additional history exists Diabetic Foot Exam 12/02/2024 12/03/2023, 0 12/03/2023, 11/13/2022, Additional history exists Diabetic Eye Exam 12/15/2024 12/16/2023, , 06/09/2023, Additional history exists DXA Scan 08/18/2025 08/18/2023, 08/07, 08/15/2021, Additional history exists DTaP,Tdap,and Td Vaccines (3 - Td or Tdap) 09/17/2027 09/16/2017, 04/06/2008, 11/06/1995 Pneumococcal Vaccine: 65+ Years Completed 10/14/2014, 04/02/2011, 12/21/2002 Zoster Vaccines Completed 09/15/2019, 1110/2018, 06/14/2009 Lung Cancer Screening Completed 05/16/2021 , 02/17/2020, 02/11/2019, Additional history exists RETIRED - COLONOSCOPY-ANNUAL AGES 18-100 Discontinued 09/04/2022, 02/13/2015, 08/19/2011, Additional history exists RETIRED - COLONOSCOPY-EVERY 5 YRS AGES 18-100 Discontinued 09/04/2022, 02/13/2015, 08/19/2011, Additional history exists VITAMIN D LEVEL ONCE IN A LIFETIME-USE SMARTSET# 57569 Completed 08/26/2023, 07/15/2022, 03/13/2022, Additional history exists [...] this encounter Medical Devices Implanted Type Area Quality Assurance Tester Device Identifier Shelf Expiration Date Model / Serial / Lot Lens Intraoc 18.5 - [id number] - [id number] Implanted:Qty: 1 on 04/03/2021 by Irvin Canchola MD at OR [facility] Left: Eye BAUSCH & LOMB 01/03/2026 [id number] / [id number] / [id number] Lens Intraoc 18.5 - [id number] - [id number] Implanted:Qty: 1 on 04/10/2021 by Irvin Canchola MD at OR [facility] Right: Eye BAUSCH & LOMB 01/03/2026 [id number] / [id number] / [id number] documented as of this encounter Care Teams Silver Designer Relationship Specialty Start Date End Date Ferny Sr DO [address] [place] [address] PCP - General Internal Medicine 12/18/23 documented as of this encounter
--- OUTSIDE RECORDS SUMMARY | 2024-01-20 21:54 | External Medical Summary | Summary of Care ---
Author Name Unknown Organization [facility] Address [address] [place] [address] Phone [phone] Care Team Providers Care Metal Polisher Name Role Phone Ferny Sr DO Primary Care Provider [phone] Encounter Details Date Type Department Care Team [...] 01/11/2020 Active Additional Information Patient taking differently:2 Kinder Each NostrilHS, Indications: allergies, Reported on 08/13/2022 [...] by mouth daily. Active GNP Calcium 1200 0757-2271 MG-UNIT Oral Tablet Chewable Take 1 Tablet [...] pe 2 diabetes, HbA1C goal < 8% ([facility]) TEST 3 X DAILY DX E11.9 100 Strip 5 06/11/2022 Active ProAir HFA 108 (90 Base) MCG/ACT Inhalation Aerosol SolutionIndications: Acute cough,COPD, group A, by GOLD 2017 classification ([facility]) Inhale 2 Puffs by mouth in the morning and 2 Puffs at noon and 2 Puffs in the evening and 2 Puffs before bedtime. 8 g 09/13/2022 Active Empagliflozin 25 MG Oral Tablet (Jardiance)Indicatio ns:Type 2 diabetes mellitus with diabetic peripheral angiopathy without gangrene, without long-term current use of insulin ([facility]),Type 2 diabetes mellitus with peripheral neuropathy ([facility]),Type 2 DM with CKD stage 3 and hypertension ([facility]),Type 2 diabetes, HbA1C goal < 8% ([facility]) Take 1 Tablet by mouth in the morning. 100 Tablet 2 08/04/2023 Active Letrozole 2.5 MG Oral Tablet (Femara)Indications: Malignant neoplasm of right breast in female, estrogen receptor positive, unspecified site of breast ([facility]) Take 1 Tablet by mouth in the [...] ons:Type 2 diabetes, HbA1C goal < 8% ([facility]),Type 2 DM with CKD stage 3 and hypertension ([facility]) Inject 30 Units under the skin every [...] bedtime. 200 Tablet 3 10/28/2023 Active Pen [place] 32G X 4 MMIndications:Type 2 diabetes mellitus with peripheral neuropathy ([facility]) Use once daily with Lantus as directed [...] Osteoporosis without current pathological fractu re 08/27/2023 shelter current use of aromatase inhibitor Type 2 [...] and oxygen 06/08 Overview: with 4 LPM [facility] Last Assessment & Plan: Compliant with BiPAP [...] Open-angle glaucoma 06/14/2021 10/16/19 22 Atherosclerosis of [place] co ronary artery without angina pectoris 03/26/2021 [...] mRNA, LNP-s, No Pre serve, 2-Dose Series (SoWeTrip) 05/14/2021,09/21/2020,08/31/2020 COVID-19, LNP-s, No Preserve , Jose-sucrose, Ages 12+ (SoWeTrip) 12/11/2021 COVID-19, MRNA-LNP, 23-24, P F, 30 [...] 02/04/2024 9:30 AM EDT Office Visit Orthopaedics [facility] [address] [facility] [place] [address] Gwyn Rayo MD [address] [place] [address] 02/24/2024 11:00 AM EDT Laboratory Laboratory [facility] [place] [address] [place] [phone] [place], [facility] [address] [place] [address] 02/24/2024 12:00 PM EDT Office Visit Hematology/Oncolog y [facility] [place] [address] [place] [phone] Michelle Ruffin CRNP [address] [facility] [place] [address] 03/02/2024 2:30 PM EDT Hospital Encounter ENDO [facility], Endoscopy Room [facility] [address] [place] [phone] Landon Kline MD [address] [place] [address] 03/02/2024 2:30 PM EDT - 03/02/2024 3:00 PM EDT Surgery ENDO [facility], Endoscopy Room [facility] [address] [place] [phone] Landon Kline MD [address] [place] [address] COLONOSCOPY FLEXIBLE PROXIMAL DIAGNOSTIC 04/02/2024 10:30 AM EDT Office Visit Sleep Disorders Ctr [facility] [place] [address] [place] [phone] Mara Archibald CRNP [address] [place] [address] 04/05/2024 10:40 AM EDT Office Visit Family Practice [address], [place] [address] [place] [phone] Ferny Sr, [address] [facility] [place] [address] 05/11/2024 11:15 AM EST Office Visit Dermatology [facility] [place] 200 [facility] [place], [place] [address] Kingston Huertas MD [address] [facility] [place], [place] [address] Scheduled Procedures Name Priority Associated Diagnoses Date/Ti [...] Screening 07/29/2024 07/29/2023 CKD HGB USE SMARTSET 63711 09/15/202409/15, 09/16/2023, 08/26/2023, Additional history exists CKD PHOS USE SMARTSET 55154 09/15/202409/04, 08/26/2023, 11/21/2022, Additional history exists O2 [...] D LEVEL ONCE IN A LIFETIME-USE SMARTSET# 14547 Completed 08/26/2023, 07/15/2022, 03/13/2022, Additional history exists [...] this encounter Medical Devices Implanted Type Area [facility] Tutor Device Identifier Shelf Expiration Date Model / Serial / Lot Lens Intraoc 18.5 - [id number] - [id number] Implanted:Qty: 1 on 04/03/2021 by Irvin Canchola MD at OR [facility] Left: Eye BAUSCH & LOMB 01/03/2026 [id number] / [id number] / [id number] Lens Intraoc 18.5 - [id number] - [id number] Implanted:Qty: 1 on 04/10/2021 by Irvin Canchola MD at [facility] Right: Eye BAUSCH & LOMB 01/03/2026 [id number] / [id number] / [id number] documented as of this encounter Care Teams Metal Polisher Relationship Specialty Start Date End Date Ferny Sr DO [address] [facility] [place] [address] PCP - General Internal Medicine 12/18/23 documented as of this encounter
--- OUTSIDE RECORDS SUMMARY | 2024-01-20 21:54 | External Medical Summary | Summary of Care ---
Author Name Unknown Organization [facility] Address [address] [place] [address] Phone [phone] Care Team Providers Care Manager Multimedia Name Role Phone Ferny Sr DO Primary Care Provider [phone] Encounter Details Date Type Department Care Team [...] 01/11/2020 Active Additional Information Patient taking differently:2 [place] Each NostrilHS, Indications: allergies, Reported on 08/13/2022 [...] by mouth daily. Active GNP Calcium 1200 5634-8194 MG-UNIT Oral Tablet Chewable Take 1 Tablet [...] 2 diabetes, HbA1C goal < 8% ([facility]) TEST 3 X DAILY DX E11.9 100 Strip 5 06/11/2022 Active ProAir HFA 108 (90 Base) MCG/ACT Inhalation Aerosol SolutionIndications: Acute cough,COPD, group A, by GOLD 2017 classification ([facility]) Inhale 2 Puffs by mouth in the morning and 2 Puffs at noon and 2 Puffs in the evening and 2 Puffs before bedtime. 8 g 09/13/2022 Active Empagliflozin 25 MG Oral Tablet (Jardiance)Indicatio ns:Type 2 diabetes mellitus with diabetic peripheral angiopathy without gangrene, without long-term current use of insulin ([facility]),Type 2 diabetes mellitus with peripheral neuropathy ([facility]),Type 2 DM with CKD stage 3 and hypertension ([facility]),Type 2 diabetes, HbA1C goal < 8% ([facility]) Take 1 Tablet by mouth in the morning. 100 Tablet 2 08/04/2023 Active Letrozole 2.5 MG Oral Tablet (Femara)Indications: Malignant neoplasm of right breast in female, estrogen receptor positive, unspecified site of breast ([facility]) Take 1 Tablet by mouth [...] 2 diabetes, HbA1C goal < 8% ([facility]),Type 2 DM with CKD stage 3 and hypertension ([facility]) Inject 30 Units under the [...] bedtime. 200 Tablet 3 10/28/2023 Active Pen [place] 32G X 4 MMIndications:Type 2 diabetes mellitus with peripheral neuropathy ([facility]) Use once daily with Lantus [...] Osteoporosis without current pathological fractu re 08/27/2023 custodial current use of aromatase inhibitor Type 2 [...] and oxygen 06/08 Overview: with 4 LPM [facility] Last Assessment & Plan: Compliant with [...] Open-angle glaucoma 06/14/2021 10/16/19 22 Atherosclerosis of [place] co ronary artery without angina pectoris 03/26/2021 [...] mRNA, LNP-s, No Pre serve, 2-Dose Series ([employer]) 05/14/2021,09/21/2020,08/31/2020 COVID-19, LNP-s, No Preserve , Jose-sucrose, Ages 12+ ([employer]) 12/11/2021 COVID-19, MRNA-LNP, 23-24, P F, 30 [...] Office Visit Orthopaedics [facility] [address] [facility] [place] [address] Gwyn Rayo MD [address] [place] [address] 02/24/2024 11:00 AM EDT Laboratory Laboratory [facility] [place] [address] [place] [phone] [place], [facility] [address] [place] [address] 02/24/2024 12:00 PM EDT Office Visit Hematology/Oncolog y [facility] [place] [address] [place] [phone] Michelle Ruffin CRNP [address] [facility] [place] [address] 03/02/2024 2:30 PM EDT Hospital Encounter ENDO OSSC, Endoscopy Room [facility] [address] [place] [phone] Landon Kline MD [address] [place] [address] 03/02/2024 2:30 PM EDT - 03/02/2024 3:00 PM EDT Surgery ENDO O[facility], Endoscopy Room [facility] [address] [place] [phone] Landon Kline MD [address] [place] [address] COLONOSCOPY FLEXIBLE PROXIMAL DIAGNOSTIC 04/02/2024 10:30 AM EDT Office Visit [facility] Disorders Ctr [facility] [place] [address] [place] [phone] Mara Archibald CRNP [address] [place] [address] 04/05/2024 10:40 AM EDT Office Visit Family Practice [address], [place] [address] [facility] [place] [phone] Ferny Sr, 293 [place] [address] 05/11/2024 11:15 AM EST Office Visit Dermatology [facility] [place] [address] [facility] [place], [place] [address] Kingston Huertas MD [address] [facility] [place], [place] [address] Scheduled Procedures Name Priority Associated Diagnoses Date/Ti [...] Screening 07/29/2024 07/29/2023 CKD HGB USE SMARTSET 76454 09/15/202409/15, 09/16/2023, 08/26/2023, Additional history exists CKD PHOS USE SMARTSET 46466 09/15/202409/04, 08/26/2023, 11/21/2022, Additional history exists O2 [...] D LEVEL ONCE IN A LIFETIME-USE SMARTSET# 08157 Completed 08/26/2023, 07/15/2022, 03/13/2022, Additional history exists [...] this encounter Medical Devices Implanted Type Area Cocoa Powder Mixer Operator Device Identifier Shelf Expiration Date Model / Serial / Lot Lens Intraoc 18.5 - [id number] - [id number] Implanted:Qty: 1 on 04/03/2021 by Irvin Canchola MD at OR [facility] Left: Eye BAUSCH & LOMB 01/03/2026 [id number] / [id number] Lens Intraoc 18.5 - [id number] - [id number] Implanted:Qty: 1 on 04/10/2021 by Irvin Canchola MD at [facility] Right: Eye BAUSCH & LOMB 01/03/2026 [id number] / [id number] / [id number] documented as of this encounter Care Teams Manager Multimedia Relationship Specialty Start Date End Date Ferny Sr DO [address] [place] [address] PCP - General Internal Medicine 12/18/23 documented as of this encounter
--- OUTSIDE RECORDS SUMMARY | 2024-01-20 21:55 | External Medical Summary | Summary of Care ---
Author Name Unknown Organization [facility] Address [address] [place] [address] Phone [phone] Care Team Providers Care Resolution Analyst Name Role Phone Ferny Sr DO Primary Care Provider [phone] Encounter Details Date Type Department Care Team [...] 01/11/2020 Active Additional Information Patient taking differently:2 [place] Each NostrilHS, Indications: allergies, Reported on 08/13/2022 [...] by mouth daily. Active GNP Calcium 1200 1695-6115 MG-UNIT Oral Tablet Chewable Take 1 Tablet [...] pe 2 diabetes, HbA1C goal < 8% ([facility]) TEST 3 X DAILY DX E11.9 100 Strip 5 06/11/2022 Active ProAir HFA 108 (90 Base) MCG/ACT Inhalation Aerosol SolutionIndications: Acute cough,COPD, group A, by GOLD 2017 classification ([facility]) Inhale 2 Puffs by mouth in the morning and 2 Puffs at noon and 2 Puffs in the evening and 2 Puffs before bedtime. 8 g 09/13/2022 Active Empagliflozin 25 MG Oral Tablet (Jardiance)Indicatio ns:Type 2 diabetes mellitus with diabetic peripheral angiopathy without gangrene, without long-term current use of insulin ([facility]),Type 2 diabetes mellitus with peripheral neuropathy ([facility]),Type 2 DM with CKD stage 3 and hypertension ([facility]),Type 2 diabetes, HbA1C goal < 8% ([facility]) Take 1 Tablet by mouth in the morning. 100 Tablet 2 08/04/2023 Active Letrozole 2.5 MG Oral Tablet (Femara)Indications: Malignant neoplasm of right breast in female, estrogen receptor positive, unspecified site of breast ([facility]) Take 1 Tablet by mouth [...] ons:Type 2 diabetes, HbA1C goal < 8% ([facility]),Type 2 DM with CKD stage 3 and hypertension ([facility]) Inject 30 Units under the [...] bedtime. 200 Tablet 3 10/28/2023 Active Pen [place] 32G X 4 MMIndications:Type 2 diabetes mellitus with peripheral neuropathy ([facility]) Use once daily with Lantus [...] Osteoporosis without current pathological fractu re 08/27/2023 snf current use of aromatase inhibitor Type 2 [...] and oxygen 06/08 Overview: with 4 LPM [facility] Last Assessment & Plan: Compliant with [...] Open-angle glaucoma 06/14/2021 10/16/19 22 Atherosclerosis of [place] co ronary artery without angina pectoris 03/26/2021 [...] mRNA, LNP-s, No Pre serve, 2-Dose Series ([employer]) 05/14/2021,09/21/2020,08/31/2020 COVID-19, LNP-s, No Preserve , Jose-sucrose, Ages 12+ ([employer]) 12/11/2021 COVID-19, MRNA-LNP, 23-24, P F, 30 [...] 02/04/2024 9:30 AM EDT Office Visit Orthopaedics [facility] [address] [facility] [place] [address] Gwyn Rayo MD [address] [place] [address] 02/24/2024 11:00 AM EDT Laboratory Laboratory [facility] [place] [address] [place] [phone] [place], [facility] [address] [place] [address] 02/24/2024 12:00 PM EDT Office Visit Hematology/Oncolog y [facility] [place] [address] [place] [phone] Michelle Ruffin CRNP 400 [facility] [place] [address] 03/02/2024 2:30 PM EDT Hospital Encounter ENDO OSSC, Endoscopy Room [facility] [address] [place] [phone] Landon Kline MD [address] [place] [address] 03/02/2024 2:30 PM EDT - 03/02/2024 3:00 PM EDT Surgery ENDO OSSC, Endoscopy Room [facility] [address] [place] [phone] Landon Kline MD [address] [place] [address] COLONOSCOPY FLEXIBLE PROXIMAL DIAGNOSTIC 04/02/2024 10:30 AM EDT Office Visit Sleep Disorders Ctr [facility] [place] [address] [place] [phone] Mara Archibald CRNP [address] [place] [address] 04/05/2024 10:40 AM EDT Office Visit Family Practice [address], [place] [address] [facility] [place] [phone] Ferny Sr, [address] [place] [address] 05/11/2024 11:15 AM EST Office Visit Dermatology [facility] [place] [address] [facility] [place], [place] [address] Kingston Huertas MD [address] [facility] [place], [place] [address] Scheduled Procedures Name Priority Associated Diagnoses Date/Ti [...] Screening 07/29/2024 07/29/2023 CKD HGB USE SMARTSET 91102 09/15/202409/15, 09/16/2023, 08/26/2023, Additional history exists CKD PHOS USE SMARTSET 11359 09/15/202409/04, 08/26/2023, 11/21/2022, Additional history exists O2 [...] D LEVEL ONCE IN A LIFETIME-USE SMARTSET# 05765 Completed 08/26/2023, 07/15/2022, 03/13/2022, Additional history exists [...] this encounter Medical Devices Implanted Type Area Roustabout Hand Device Identifier Shelf Expiration Date Model / Serial / Lot Lens Intraoc 18.5 - [id number] - [id number] Implanted:Qty: 1 on 04/03/2021 by Irvin Canchola MD at OR [facility] Left: Eye BAUSCH & LOMB 01/03/2026 [id number] / [id number] / [id number] Lens Intraoc 18.5 - [id number] - [id number] Implanted:Qty: 1 on 04/10/2021 by Irvin Canchola MD at [facility] Right: Eye BAUSCH & LOMB 01/03/2026 [id number] / [id number] / [id number] documented as of this encounter Care Teams Resolution Analyst Relationship Specialty Start Date End Date Ferny Sr DO [address] [place] [address] PCP - General Internal Medicine 12/18/23 documented as of this encounter
--- OUTSIDE RECORDS SUMMARY | 2024-01-20 21:55 | External Medical Summary | Summary of Care ---
Author Name Unknown Organization [facility] Address [address] [place] [address] Phone [phone] Care Team Providers Care Automotive Diagnostic Technician Name Role Phone Ferny Sr DO Primary Care Provider [phone] Reason for Visit * Reason Onset Date Comments Other 01/07/2024 Encounter Details Date Type Department Care Team (Latest Contact Info) Description 01/07/2024 Telephone [facility]ALTH & WELL[facility] Ferny Sr DO [address] [place], [place] [id number] Other Allergies Active Allergy Reactions Criticality Noted Date Comments Clarithromycin Other (Please comment) Low 1 "Burning mouth" sensation. documented as of this encounter (statuses as of 01/07/2024) Medications Medication Sig Dispensed Refills Start Date End Date Status AvesoTOUCH ULTRA SYSTEM W/DEVICE KITIndications:DM type 2, goal [...] 01/11/2020 Active Additional Information Patient taking differently:2 [place] Each NostrilHS, Indications: allergies, Reported on 08/13/2022 [...] by mouth daily. Active GNP Calcium 1200 7596-9869 MG-UNIT Oral Tablet Chewable Take 1 Tablet [...] pe 2 diabetes, HbA1C goal < 8% ([facility]) TEST 3 X DAILY DX E11.9 100 Strip 5 06/11/2022 Active ProAir HFA 108 (90 Base) MCG/ACT Inhalation Aerosol SolutionIndications: Acute cough,COPD, group A, by GOLD 2017 classification ([facility]) Inhale 2 Puffs by mouth in the morning and 2 Puffs at noon and 2 Puffs in the evening and 2 Puffs before bedtime. 8 g 09/13/2022 Active Empagliflozin 25 MG Oral Tablet (Jardiance)Indicatio ns:Type 2 diabetes mellitus with diabetic peripheral angiopathy without gangrene, without long-term current use of insulin ([facility]),Type 2 diabetes mellitus with peripheral neuropathy ([facility]),Type 2 DM with CKD stage 3 and hypertension ([facility]),Type 2 diabetes, HbA1C goal < 8% ([facility]) Take 1 Tablet by mouth in the morning. 100 Tablet 2 08/04/2023 Active Letrozole 2.5 MG Oral Tablet (Femara)Indications: Malignant neoplasm of right breast in female, estrogen receptor positive, unspecified site of breast ([facility]) Take 1 Tablet by mouth in [...] LDL less than 70,PAD (peripheral artery disease) ([facility]) Take 1 Tablet by mouth in the morning. 100 Tablet 3 09/11/2023 Active Lisinopril 40 MG Oral TabletIndications:HT N, goal below 130/80 Take 1 Tablet by mouth in the morning. 100 Tablet 3 09/11/2023 Active Insulin Glargine Solostar 100 UNIT/ML Subcutaneous Solution Pen-injectorIndicati ons:Type 2 diabetes, HbA1C goal < 8% ([facility]),Type 2 DM with CKD stage 3 and hypertension ([facility]) Inject 30 Units under the skin [...] bedtime. 200 Tablet 3 10/28/2023 Active Pen [place] 32G X 4 MMIndications:Type 2 diabetes mellitus with peripheral neuropathy ([facility]) Use once daily with Lantus as [...] as of this encounter (statuses as of 01/07/2024) Active Problems Problem Noted Date Diagnosed Date Osteoporosis without current pathological fractu re 08/27/2023 prison current use of aromatase inhibitor Type 2 [...] SKIN MELANOMA - LM R neck 08/1009 2009 HTN, goal below 150/90 05/24/2009 Overview: Modified [...] as of this encounter (statuses as of 01/07/2024) Resolved Problems Problem Noted Date Diagnosed Date Resolved Date Diabetes mellitus with stage 3 chronic kidney disease 07/15/2022 07/15/2022 Diabetes mellitus 07/15/2022 09/10/2022 Hypertensive heart disease without CHF 01/04/2022 07/15/2022 Class 2 severe obesity with serious comorbidity and body mass index (BMI) of 39.0 to 39.9 in adult 01/04/2022 12/03/2023 Open-angle glaucoma 06/14/2021 10/16/19 Atherosclerosis of [place] co ronary artery without angina pectoris 03/26/2021 [...] as of this encounter (statuses as of 01/07/2024) Immunizations Name Administration Dates Next Due COVID-19 mRNA, LNP-s, No Pre serve, 2-Dose Series ([employer]) 05/14/2021,09/21/2020,08/31/2020 COVID-19, LNP-s, No Preserve , Jose-sucrose, Ages 12+ ([employer]) 12/11/2021 COVID-19, MRNA-LNP, 23-24, P F, 30 MCG/0.3 mL, 12 YRS AND ABOVE, IM (P[employer]) 04/29/2023 Covid-19, Mrna, Lnp-s, Pf, B ivalent, [...] on file documented as of this encounter Miscellaneous Notes * Telephone Encounter - [facility] - 01/07/2024 4:10 PM EDT Called and LVM for patient and her spouse that the next RX balance class starts on 01/13/24 at 11:00 a.m. documented in this encounter Plan of Treatment Upcoming Encounters Date Type Department Care Team (Latest Contact Info) Description 01/13/2024 11:00 AM EDT Office Visit Family Practice [address] [place] [address] [facility] [phone] [facility] [address] [facility] [address] 02/04/2024 9:30 AM EDT Office Visit Orthopaedics [facility] 132 [facility] [place] [address] Gwyn Rayo MD 132 [facility] [place] [address] 02/24/2024 11:00 AM EDT Laboratory Laboratory [facility] [address] [place] [phone] Naomi Lab [facility] 200 [facility] [place] [address] 02/24/2024 12:00 PM EDT Office Visit Hematology/Oncolog y [facility] [address] [place] [phone] Michelle Ruffin CRNP [address] [place] [address] 03/02/2024 2:30 PM EDT Hospital Encounter ENDO [facility], Endoscopy Room [facility] [address] [place] [phone] Landon Kline MD [address] [place] [address] 03/02/2024 2:30 PM EDT - 03/02/2024 3:00 PM EDT Surgery ENDO [facility], Endoscopy Room [facility] [address] [facility] [place] [phone] Landon Kline MD [address] [place] [address] COLONOSCOPY FLEXIBLE PROXIMAL DIAGNOSTIC 04/02/2024 10:30 AM EDT Office Visit [facility] 132 [facility] [place] [phone] Mara Archibald CRNP [facility] [address] 04/05/2024 10:40 AM EDT Office Visit Family Practice [address] [place] [address] [address] [place] [address] Ferny Sr, 293 [place] [address] 05/11/2024 11:15 AM EST Office Visit Dermatology [facility] 200 [facility] [place] [address] Kingston Huertas MD 200 [facility] [place] [address] Scheduled Procedures Name Priority Associated Diagnoses Date/Ti [...] Screening 07/29/2024 07/29/2023 CKD HGB USE SMARTSET 34355 09/15/202409/15, 09/16/2023, 08/26/2023, Additional history exists CKD PHOS USE SMARTSET 03889 09/15/202409/04, 08/26/2023, 11/21/2022, Additional history exists O2 [...] D LEVEL ONCE IN A LIFETIME-USE SMARTSET# 87490 Completed 08/26/2023, 07/15/2022, 03/13/2022, Additional history exists [...] this encounter Medical Devices Implanted Type Area Sports Medicine Coordinator Device Identifier Shelf Expiration Date Model / Serial / Lot Lens Intraoc 18.5 - [id number] - [id number] Implanted:Qty: 1 on 04/03/2021 by Irvin Canchola MD at OR [facility] Left: Eye BAUSCH & LOMB 01/03/2026 [id number] / [id number] / [id number] Lens Intraoc 18.5 - [id number] - [id number] Implanted:Qty: 1 on 04/10/2021 by Irvin Canchola MD at OR [facility] Right: Eye BAUSCH & LOMB 01/03/2026 [id number] / [id number] / [id number] documented as of this encounter Care Teams Automotive Diagnostic Technician Relationship Specialty Start Date End Date Ferny Sr DO [address] [facility] [place] [address] PCP - General Internal Medicine 12/18/23 documented as of this encounter
--- OUTSIDE RECORDS SUMMARY | 2024-01-20 21:55 | External Medical Summary | Summary of Care ---
Author Name Unknown Organization [facility] Address [address] [place] [address] Phone [phone] Care Team Providers Care Email Manager Name Role Phone Ferny Sr DO Primary Care Provider [phone] Encounter Details Date Type Department Care Team (Late st Contact Info) Description 01/13/2024 Documentation [facility]ALTH [facility]LL[facility] Linsey Cho, Health Grain Farmworker Allergies Active Allergy Reactions Criticality Noted Date [...] 01/11/2020 Active Additional Information Patient taking differently:2 [place] Each NostrilHS, Indications: allergies, Reported on 08/13/2022 [...] by mouth daily. Active GNP Calcium 1200 7362-5294 MG-UNIT Oral Tablet Chewable Take 1 Tablet [...] pe 2 diabetes, HbA1C goal < 8% ([facility]) TEST 3 X DAILY DX E11.9 100 Strip 5 06/11/2022 Active ProAir HFA 108 (90 Base) MCG/ACT Inhalation Aerosol SolutionIndications: Acute cough,COPD, group A, by GOLD 2017 classification ([facility]) Inhale 2 Puffs by mouth in the morning and 2 Puffs at noon and 2 Puffs in the evening and 2 Puffs before bedtime. 8 g 09/13/2022 Active Empagliflozin 25 MG Oral Tablet (Jardiance)Indicatio ns:Type 2 diabetes mellitus with diabetic peripheral angiopathy without gangrene, without long-term current use of insulin ([facility]),Type 2 diabetes mellitus with peripheral neuropathy ([facility]),Type 2 DM with CKD stage 3 and hypertension ([facility]),Type 2 diabetes, HbA1C goal < 8% ([facility]) Take 1 Tablet by mouth in the morning. 100 Tablet 2 08/04/2023 Active Letrozole 2.5 MG Oral Tablet (Femara)Indications: Malignant neoplasm of right breast in female, estrogen receptor positive, unspecified site of breast ([facility]) Take 1 Tablet by mouth [...] ons:Type 2 diabetes, HbA1C goal < 8% ([facility]),Type 2 DM with CKD stage 3 and hypertension ([facility]) Inject 30 Units under the [...] bedtime. 200 Tablet 3 10/28/2023 Active Pen [place] 32G X 4 MMIndications:Type 2 diabetes mellitus with peripheral neuropathy ([facility]) Use once daily with Lantus [...] and oxygen 06/08 Overview: with 4 LPM [facility] Last Assessment & Plan: Compliant with [...] Open-angle glaucoma 06/14/2021 10/16/19 22 Atherosclerosis of [place] co ronary artery without angina pectoris 03/26/2021 [...] mRNA, LNP-s, No Pre serve, 2-Dose Series ([employer]) 05/14/2021,09/21/2020,08/31/2020 COVID-19, LNP-s, No Preserve , Jose-sucrose, Ages 12+ ([employer]) 12/11/2021 COVID-19, MRNA-LNP, 23-24, P F, 30 [...] encounter Progress Notes * Linsey Cho, Health Grain Farmworker - 01/13/2024 3:36 PM EDT Did patient attend session 1 of 10 of the small group balance program? No: Patient did not attend session 1 of 10 of the small group balance program. documented in this encounter Plan of Treatment Upcoming Encounters Date Type Department Care Team (Latest Contact Info) Description 02/04/2024 9:30 AM EDT Office Visit Orthopaedics [facility] [address] [place] [address] Gwyn Rayo MD [address] [place] [address] 02/24/2024 11:00 AM EDT Laboratory Laboratory [facility] [address] [place] [phone] [place], [facility] [address] [place] [address] 02/24/2024 12:00 PM EDT Office Visit Hematology/Oncolog y [facility] [address] [place] [phone] Michelle Ruffin CRNP [address] [place] [address] [place] [address] 03/02/2024 2:30 PM EDT Hospital Encounter ENDO OSSC, Endoscopy Room [facility] [address] [place] [phone] Landon Kline MD [address] [place] [address] 03/02/2024 2:30 PM EDT - 03/02/2024 3:00 PM EDT Surgery ENDO OSSC, Endoscopy Room [facility] [address] [place] [phone] Landon Kline MD [address] [place] [address] COLONOSCOPY FLEXIBLE PROXIMAL DIAGNOSTIC 04/02/2024 10:30 AM EDT [facility] [address] [facility] [place] [phone] Mara Archibald CRNP [address] [facility] [place] [address] 04/05/2024 10:40 AM EDT Office Visit Family Practice [address] [place] [address] [address] [place] [address] Ferny Sr, [address] [place] [address] 05/11/2024 11:15 AM EST Office Visit Dermatology [facility] 200 [facility] [place] [address] Kingston Huertas MD [address] [facility] [place] [address] Scheduled Procedures Name Priority Associated Diagnoses Date/Ti [...] Screening 07/29/2024 07/29/2023 CKD HGB USE SMARTSET 14058 09/15/202409/15, 09/16/2023, 08/26/2023, Additional history exists CKD PHOS USE SMARTSET 16693 09/15/202409/04, 08/26/2023, 11/21/2022, Additional history exists O2 [...] D LEVEL ONCE IN A LIFETIME-USE SMARTSET# 62540 Completed 08/26/2023, 07/15/2022, 03/13/2022, Additional history exists [...] this encounter Medical Devices Implanted Type Area Script Developer Device Identifier Shelf Expiration Date Model / Serial / Lot Lens Intraoc 18.5 - [id number] - [id number] Implanted:Qty: 1 on 04/03/2021 by Irvin Canchola MD at OR [facility] Left: Eye [employer]OMB 01/03/2026 [id number] / [id number] / [id number] Lens Intraoc 18.5 - [id number] - [id number] Implanted:Qty: 1 on 04/10/2021 by Irvin Canchola MD at OR [facility] Right: Eye BAUSCH [employer] LOMB 01/03/2026 [id number] / [id number] / [id number] documented as of this encounter Care Teams Email Manager Relationship Specialty Start Date End Date Ferny Sr DO [address] [place] [address] PCP - General Internal Medicine 12/18/23 documented as of this encounter
--- OUTSIDE RECORDS SUMMARY | 2024-01-20 21:55 | External Medical Summary | Summary of Care ---
Author Name Unknown Organization [facility] Address [address] [place] [address] Phone [phone] Care Team Providers Care Shipping And Receiving Material Handler Name Role Phone Ferny Sr DO Primary Care Provider [phone] Encounter Details Date Type Department Care Team [...] 01/11/2020 Active Additional Information Patient taking differently:2 [place] Each NostrilHS, Indications: allergies, Reported on 08/13/2022 [...] by mouth daily. Active GNP Calcium 1200 2981-1082 MG-UNIT Oral Tablet Chewable Take 1 Tablet [...] pe 2 diabetes, HbA1C goal < 8% ([facility]) TEST 3 X DAILY DX E11.9 100 Strip 5 06/11/2022 Active ProAir HFA 108 (90 Base) MCG/ACT Inhalation Aerosol SolutionIndications: Acute cough,COPD, group A, by GOLD 2017 classification ([facility]) Inhale 2 Puffs by mouth in the morning and 2 Puffs at noon and 2 Puffs in the evening and 2 Puffs before bedtime. 8 g 09/13/2022 Active Empagliflozin 25 MG Oral Tablet (Jardiance)Indicatio ns:Type 2 diabetes mellitus with diabetic peripheral angiopathy without gangrene, without long-term current use of insulin ([facility]),Type 2 diabetes mellitus with peripheral neuropathy ([facility]),Type 2 DM with CKD stage 3 and hypertension ([facility]),Type 2 diabetes, HbA1C goal < 8% ([facility]) Take 1 Tablet by mouth in the morning. 100 Tablet 2 08/04/2023 Active Letrozole 2.5 MG Oral Tablet (Femara)Indications: Malignant neoplasm of right breast in female, estrogen receptor positive, unspecified site of breast ([facility]) Take 1 Tablet by mouth in the [...] ons:Type 2 diabetes, HbA1C goal < 8% ([facility]),Type 2 DM with CKD stage 3 and hypertension ([facility]) Inject 30 Units under the skin every [...] bedtime. 200 Tablet 3 10/28/2023 Active Pen [place] 32G X 4 MMIndications:Type 2 diabetes mellitus with peripheral neuropathy ([facility]) Use once daily with Lantus as directed [...] Osteoporosis without current pathological fractu re 08/27/2023 group home current use of aromatase inhibitor Type [...] and oxygen 06/08 Overview: with 4 LPM [facility] Last Assessment & Plan: Compliant [...] Open-angle glaucoma 06/14/2021 10/16/19 22 Atherosclerosis of [place] co ronary artery without angina pectoris 03/26/2021 [...] mRNA, LNP-s, No Pre serve, 2-Dose Series ([employer]) 05/14/2021,09/21/2020,08/31/2020 COVID-19, LNP-s, No Preserve , Jose-sucrose, Ages 12+ ([employer]) 12/11/2021 COVID-19, MRNA-LNP, 23-24, P F, 30 [...] 02/04/2024 9:30 AM EDT Office Visit Orthopaedics [facility] [address] [place] [address] Gwyn Rayo MD [address] [place] [address] 02/24/2024 11:00 AM EDT Laboratory Laboratory [facility] [place] [address] [place] [phone] [place], [facility] [address] [place] [address] 02/24/2024 12:00 PM EDT Office Visit Hematology/Oncolog y [facility] [place] [address] [place] [phone] Michelle Ruffin CRNP [address] [facility] [place] [address] 03/02/2024 2:30 PM EDT Hospital Encounter ENDO OSSC, Endoscopy Room [facility] [address] [place] [phone] Landon Kline MD [address] [place] [address] 03/02/2024 2:30 PM EDT - 03/02/2024 3:00 PM EDT Surgery ENDO OSSC, Endoscopy Room [facility] [address] [place] [phone] Landon Kline MD [address] [place] [address] COLONOSCOPY FLEXIBLE PROXIMAL DIAGNOSTIC 04/02/2024 10:30 AM EDT Office Visit Sleep Disorders Ctr [facility] [place] [address] [place] [phone] Mara Archibald CRNP [address] [place] [address] 04/05/2024 10:40 AM EDT Office Visit Family Practice [address], [place] [address] [facility] [place] [phone] Ferny Sr, [address] [place] [address] 05/11/2024 11:15 AM EST Office Visit Dermatology [facility] [place] 200 [facility] [place], [place] [address] Kingston Huertas MD 200 [facility] [place], [place] [address] Scheduled Procedures Name Priority Associated Diagnoses Date/Ti [...] Screening 07/29/2024 07/29/2023 CKD HGB USE SMARTSET 07479 09/15/202409/15, 09/16/2023, 08/26/2023, Additional history exists CKD PHOS USE SMARTSET 88333 09/15/202409/04, 08/26/2023, 11/21/2022, Additional history exists O2 [...] D LEVEL ONCE IN A LIFETIME-USE SMARTSET# 72838 Completed 08/26/2023, 07/15/2022, 03/13/2022, Additional history exists [...] this encounter Medical Devices Implanted Type Area Emr Analyst Device Identifier Shelf Expiration Date Model / Serial / Lot Lens Intraoc 18.5 - [id number] - [id number] Implanted:Qty: 1 on 04/03/2021 by Irvin Canchola MD at OR [facility] Left: Eye BAUSCH [employer] LOMB 01/03/2026 [id number] / [id number] / [id number] Lens Intraoc 18.5 - [id number] - [id number] Implanted:Qty: 1 on 04/10/2021 by Irvin Canchola MD at [facility] Right: Eye BAUSCH [employer] LOMB 01/03/2026 [id number] / [id number] / [id number] documented as of this encounter Care Teams Shipping And Receiving Material Handler Relationship Specialty Start Date End Date Ferny Sr DO [address] [place] [address] PCP - General Internal Medicine 12/18/23 documented as of this encounter
--- OUTSIDE RECORDS SUMMARY | 2024-01-20 21:55 | External Medical Summary | Summary of Care ---
Author Name Unknown Organization [facility] Address [address] [place] [address] Phone [phone] Care Team Providers Care Director Dental Services Name Role Phone Fenry Sr DO Primary Care Provider [phone] Encounter Details Date Type Department Care Team [...] 01/11/2020 Active Additional Information Patient taking differently:2 [place] Each NostrilHS, Indications: allergies, Reported on 08/13/2022 [...] by mouth daily. Active GNP Calcium 1200 8734-2292 MG-UNIT Oral Tablet Chewable Take 1 Tablet [...] diabetes, HbA1C goal < 8% ([facility]) TEST 3 X DAILY DX E11.9 100 Strip 5 06/11/2022 Active ProAir HFA 108 (90 Base) MCG/ACT Inhalation Aerosol SolutionIndications: Acute cough,COPD, group A, by GOLD 2017 classification ([facility]) Inhale 2 Puffs by mouth in the morning and 2 Puffs at noon and 2 Puffs in the evening and 2 Puffs before bedtime. 8 g 09/13/2022 Active Empagliflozin 25 MG Oral Tablet (Jardiance)Indicatio ns:Type 2 diabetes mellitus with diabetic peripheral angiopathy without gangrene, without long-term current use of insulin ([facility]),Type 2 diabetes mellitus with peripheral neuropathy ([facility]),Type 2 DM with CKD stage 3 and hypertension ([facility]),Type 2 diabetes, HbA1C goal < 8% ([facility]) Take 1 Tablet by mouth in the morning. 100 Tablet 2 08/04/2023 Active Letrozole 2.5 MG Oral Tablet (Femara)Indications: Malignant neoplasm of right breast in female, estrogen receptor positive, unspecified site of breast ([facility]) Take 1 Tablet by mouth [...] diabetes, HbA1C goal < 8% ([facility]),Type 2 DM with CKD stage 3 and hypertension ([facility]) Inject 30 Units under the [...] bedtime. 200 Tablet 3 10/28/2023 Active Pen [place] 32G X 4 MMIndications:Type 2 diabetes mellitus with peripheral neuropathy ([facility]) Use once daily with Lantus [...] and oxygen 06/08 Overview: with 4 LPM [facility] Last Assessment & Plan: Compliant with [...] Open-angle glaucoma 06/14/2021 10/16/19 22 Atherosclerosis of [place] co ronary artery without angina pectoris 03/26/2021 [...] mRNA, LNP-s, No Pre serve, 2-Dose Series ([employer]) 05/14/2021,09/21/2020,08/31/2020 COVID-19, LNP-s, No Preserve , Jose-sucrose, Ages 12+ ([employer]) 12/11/2021 COVID-19, MRNA-LNP, 23-24, P F, 30 [...] 02/04/2024 9:30 AM EDT Office Visit Orthopaedics [facility] [address] [facility] [place] [address] Gwyn Rayo MD [address] [place] [address] 02/24/2024 11:00 AM EDT Laboratory Laboratory [facility] [place] [address] [place] [phone] [place], [facility] [address] [place] [address] 02/24/2024 12:00 PM EDT Office Visit Hematology/Oncolog y [facility] [place] [address] [place] [phone] Michelle Ruffin CRNP [address] [facility] [place] [address] 03/02/2024 2:30 PM EDT Hospital Encounter ENDO OSSC, Endoscopy Room [facility] [address] [place] [phone] Landon Kline MD [address] [place] [address] 03/02/2024 2:30 PM EDT - 03/02/2024 3:00 PM EDT Surgery ENDO OSSC, Endoscopy Room [facility] [address] [place] [phone] Landon Kline MD [address] [place] [address] COLONOSCOPY FLEXIBLE PROXIMAL DIAGNOSTIC 04/02/2024 10:30 AM EDT Office Visit Sleep Disorders Ctr [facility] [place] [address] [place] [phone] Mara Archibald CRNP [address] [place] [address] 04/05/2024 10:40 AM EDT Office Visit Family Practice [address], [place] [address] [facility] [place] [phone] Ferny Sr, [address] [facility] [place] [address] 05/11/2024 11:15 AM EST Office Visit Dermatology [facility] [place] [address] [facility] [place], [place] [address] Kingston Huertas MD [address] [facility] [place], [place] [address] Scheduled Procedures Name Priority Associated Diagnoses Date/Ti [...] Screening 07/29/2024 07/29/2023 CKD HGB USE SMARTSET 54368 09/15/202409/15, 09/16/2023, 08/26/2023, Additional history exists CKD PHOS USE SMARTSET 75457 09/15/202409/04, 08/26/2023, 11/21/2022, Additional history exists O2 [...] D LEVEL ONCE IN A LIFETIME-USE SMARTSET# 76603 Completed 08/26/2023, 07/15/2022, 03/13/2022, Additional history exists [...] this encounter Medical Devices Implanted Type Area Supervisor Whipped Topping Device Identifier Shelf Expiration Date Model / Serial / Lot Lens Intraoc 18.5 - [id number] - [id number] Implanted:Qty: 1 on 04/03/2021 by Irvin Canchola MD at OR [facility] Left: Eye [employer] 01/03/2026 [id number] / [id number] / [id number] Lens Intraoc 18.5 - [id number] - [id number] Implanted:Qty: 1 on 04/10/2021 by Irvin Canchola MD at [facility] Right: Eye [employer]CH [employer] LOMB 01/03/2026 [id number] / [id number] / [id number] documented as of this encounter Care Teams Director Dental Services Relationship Specialty Start Date End Date Ferny Sr DO [address] [facility] [place] [address] PCP - General Internal Medicine 12/18/23 documented as of this encounter
--- OUTSIDE RECORDS SUMMARY | 2024-01-20 21:56 | External Medical Summary | Summary of Care ---
Author Name Unknown Organization [facility] Address [address] [place] [address] Phone [phone] Care Team Providers Care Shredder Picker Name Role Phone Ferny Sr DO Primary Care Provider [phone] Reason for Visit * Reason Onset Date Comments Med Request 12/09/2023 Med for MRI Encounter Details Date Type Department Care Team (Late st Contact Info) Description 12/09/2023 Telephone Family Practice [facility] [address] [place] [address] Ferny Sr DO [address] [place] [address] Med Request (Med for MRI) Allergies Active Allergy Reactions Criticality Noted Date Comments Clarithromycin Other (Please comment) Low 1 "Burning mouth" sensation. documented as of this encounter (statuses as of 12/13/2023) Medications Medication Sig Dispensed Refills Start Date End Date Status ONETOUCH ULTRA SYSTEM W/DEVICE KITIndications:DM type 2, goal A1c below 7 test once daily; dx 250.00 1 Kit 0 3 Active VITAMIN C 500 MG PO TABS Take 1 Tablet by mouth daily at noon. 4 Active ONETOUCH ULTRASOFT LANCETS MISCIndications:DM type 2, goal A1c below 7 test once daily; dx 250.00 1 Box 5 4 Active fluticasone (FLONASE) 50 MCG/ACT nasal spray Administer 2 Sprays into each nostril 2 times a day. 16 g 5 0 Active Additional Information Patient taking differently:2 [place] Each NostrilHS, Indications: allergies, Reported on 08/13/2022 fexofenadine (JANNY ALLERGY) 180 MG Tablet Take 1 Tab by mouth daily. 0 Active Additional Information Patient taking differently:180 mg OralHS, Indications: allergies, Reported on 08/13/2022 BiPAP every night at bedtime. Active Vitamin B12 1000 MCG Oral Tablet Extended Release Take 1,000 mcg by mouth daily. Active Vitamin D High Potency 25 MCG (1000 UT) Oral Capsule (Cholecalciferol) Take 1 Capsule by mouth daily. Active GNP Calcium 1200 0459-0050 MG-UNIT Oral Tablet Chewable Take 1 Tablet by mouth daily. Active Aspirin EC 81 MG Oral Tablet Delayed Release Take 1 Tablet by mouth in the morning. 2 Active Azelastine HCl 137 MCG/SPRAY Nasal Solution instill 2 sprays into each nostril twice a day 90 mL 2 Active Additional Information Patient taking differently: 2 sprays once daily, Reported on 07/15/2022 Docusate Sodium 100 MG Oral Capsule (Colace) Take 2 Capsules by mouth daily. Active oxygen IN GASIndications:Slee p apnea in adult 4 LPM bled through BIPAP during hours of sleep. 1 Each 2 Active OneTouch Ultra Blue In Vitro Strip (Glucose Blood)Indications:T ype 2 diabetes, HbA1C goal < 8% ([facility]) TEST 3 X DAILY DX E11.9 100 Strip 5 2 Active ProAir HFA 108 (90 Base) MCG/ACT Inhalation Aerosol SolutionIndications :Acute cough,COPD, group A, by GOLD 2017 classification ([facility]) Inhale 2 Puffs by mouth in the morning and 2 Puffs at noon and 2 Puffs in the evening and 2 Puffs before bedtime. 8 g 3 Active Empagliflozin 25 MG Oral Tablet (Jardiance)Indicati ons:Type 2 diabetes mellitus with diabetic peripheral angiopathy without gangrene, without long-term current use of insulin ([facility]),Type 2 diabetes mellitus with peripheral neuropathy (HCC),Type 2 DM with CKD stage 3 and hypertension (HCC),Type 2 diabetes, HbA1C goal < 8% (HCC) Take 1 Tablet by mouth in the morning. 100 Tablet 2 4 Active Letrozole 2.5 MG Oral Tablet (Femara)Indications :Malignant neoplasm of right breast in female, estrogen receptor positive, unspecified site of breast (HCC) Take 1 Tablet by mouth in the morning. 100 Tablet 3 4 Active amLODIPine Besylate 2.5 MG Oral Tablet (Norvasc)Indication s:Type 2 DM with CKD stage 3 and hypertension (HCC) Take 1 Tablet by mouth in the morning. 100 Tablet 3 4 Active DULoxetine HCl 60 MG Oral Capsule Delayed Release Particles (Cymbalta) Take 1 Capsule by mouth at bedtime. 100 Capsule 2 4 Active Potassium Chloride ER 10 MEQ Oral Tablet Extended ReleaseIndications: Chronic diastolic congestive heart failure (HCC) Take 1 Tablet by mouth in the morning. 100 Tablet 2 4 Active Montelukast Sodium 10 MG Oral Tablet (Singulair)Indicati ons:Allergic rhinitis Take 1 Tablet by mouth every evening. 100 Tablet 4 Active Ozempic (1 MG/DOSE) 4 MG/3ML Subcutaneous Solution Pen-injector (Semaglutide (1 MG/DOSE))Indication s:Type 2 DM with CKD stage 3 and hypertension (HCC) Inject 1 mg under the skin once a week. 9 mL 4 Active Folic Acid 1 MG Oral Tablet Take 1 Tablet by mouth in the morning. 100 Tablet 4 Active Repatha SureClick 140 MG/ML Subcutaneous Solution Auto-injector (evolocumab) Inject 140 mg (1 pen) under the skin every 14 days. Remove from refrigerator 30 minutes prior to injection. 6 mL 4 Active Gabapentin 300 MG Oral Capsule (Neurontin)Indicati ons:neuropathy Take one capsule by mouth in the evening and two capsule at bedtime 300 Capsule 4 Active Labetalol HCl 200 MG Oral Tablet (Normodyne)Indicati ons:HTN, goal: symptom mgmt only,Resistant hypertension,HTN, goal below 150/90,Fatigue, unspecified type Take 1 Tablet by mouth in the morning and 1 Tablet before bedtime. 200 Tablet 4 Active Ezetimibe 10 MG Oral Tablet (Zetia)Indications: Dyslipidemia, goal LDL below 70,Hyperlipidemia with target LDL less than 70,PAD (peripheral artery disease) ([facility]) Take 1 Tablet by mouth in the morning. 100 Tablet 3 4 Active Lisinopril 40 MG Oral TabletIndications:H TN, goal below 130/80 Take 1 Tablet by mouth in the morning. 100 Tablet 3 4 Active Insulin Glargine Solostar 100 UNIT/ML Subcutaneous Solution Pen-injectorIndicat ions:Type 2 diabetes, HbA1C goal < 8% ([facility]),Type 2 DM with CKD stage 3 and hypertension ([facility]) Inject 30 Units under the skin every evening. 30 mL 2 4 Active Amoxicillin 500 MG Oral Capsule (Amoxil) Take 4 Capsules by mouth once. One hour prior to appointment 4 Active Melatonin 10 MG Oral Tablet Take 1 Tablet by mouth at bedtime. Active carBAMazepine ER 400 MG Oral Tablet Extended Release 12 Hour (Tegretol-Xr) Take 1 Tablet by mouth in the morning and 1 Tablet before bedtime. 200 Tablet 3 4 Active Pen [place] 32G X 4 MMIndications:Type 2 diabetes mellitus with peripheral neuropathy ([facility]) Use once daily with Lantus as directed 100 Each 3 4 Active Atorvastatin Calcium 80 MG Oral Tablet (Lipitor)Indication s:Dyslipidemia, goal LDL below 160 Take 1 Tablet by mouth in the morning. 100 Tablet 2 4 Active oxyCODONE-Acetamino phen 5-325 MG Oral Tablet (Percocet)Indicatio ns:Disc disorder of lumbar region Take 1 Tablet by mouth every 8 hours as needed for Pain, Severe. 90 Tablet 4 Active LORazepam 1 MG Oral Tablet (Ativan) Take one hour before MRI 1 Tablet 4 12/15/19 24 Active Furosemide 40 MG Oral Tablet (Lasix) take 1 tablet by mouth twice a day 180 Tablet 2 3 12/10/19 24 Discontinu ed(Refill) documented as of this encounter (statuses as of 12/13/2023) Active Problems Problem Noted Date Diagnosed Date Osteoporosis without current pathological fractu re 08/27/2023 care home current use of aromatase inhibitor Type [...] and oxygen 06/08 Overview: with 4 LPM [facility] Last Assessment & Plan: Compliant with BiPAP ADVANCE DIRECTIVE INFORMATION 12/07/2004 Overview: Yes, Patient instructed to provide copy of advance directive for provider to review and to be scanned into Electronic Medical Record Trigeminal neuralgia Mixed rhinitis Irritable bowel syndrome documented as of this encounter (statuses as of 12/13/2023) Resolved Problems Problem Noted Date Diagnosed Date Resolved Date Diabetes mellitus with stage 3 chronic kidney disease 07/15/2022 07/15/2022 Diabetes mellitus 07/15/2022 09/10/2022 Hypertensive heart disease without CHF 01/04/2022 07/15/2022 Class 2 severe obesity with serious comorbidity and body mass index (BMI) of 39.0 to 39.9 in adult 01/04/2022 12/03/2023 Open-angle glaucoma 06/14/2021 10/16/19 22 Atherosclerosis of [place] co ronary artery without angina pectoris 03/26/2021 [...] as of this encounter (statuses as of 12/13/2023) Immunizations Name Administration Dates Next Due COVID-19 mRNA, LNP-s, No Pre serve, 2-Dose Series (iTaggit) 05/14/2021,09/21/2020,08/31/2020 COVID-19, LNP-s, No Preserve , Jose-sucrose, Ages 12+ (Pfizer) 12/11/2021 COVID-19, MRNA-LNP, 23-24, P F, 30 MCG/0.3 mL, 12 YRS AND ABOVE, IM (AnyPresence-Comirnat) 04/29/2023 Covid-19, Mrna, Lnp-s, Pf, B ivalent, [...] money to get more. Never true 07/29/2023 Sex and Gender Information Value Date Recorded Sex Assigned at Female 12/15/2018 8:58 AM EDT Gender Identity Female 12/15/2018 8:58 AM EDT Sexual Orientation Straight 12/15/2018 8: 58 AM EDT Job Start Date Occupation Industry Not on file Not on file Not on file documented as of this encounter Miscellaneous Notes * Telephone Encounter - Ferny Sr, DO - 12/13/2023 8:48 AM EDT I have reviewed the patients controlled substance dispensing history in the Prescription Drug Monitoring Program in compliance with the [facility] regulations before prescribing a controlled substance. Last Tox Screen Results: Results for orders placed or performed in visit on 03/18/23 PAIN MANAGEMENT DRUG PANEL, URINE W/ INTERPRETATION Result Value Compliance Interpretation Based on medication info provided, The positive screen of oxycodone is CONSISTENT with oxycodone prescription. Confirmatory testing isavailable upon request. Amphetamines Screen, U Negative Benzodiazepines Screen, U Negative Cannabinoids Screen, U Negative Cocaine Metabolite Screen, U Negative Fentanyl Screen, U Negative Hydrocodone Screen, U Negative Methadone Metabolite Screen, U Negative Morphine/Codeine Screen, U Negative Oxycodone Screen, U Positive (A) Valid Interpretation Normal Creatinine, U 34 Narrative Cutoff Concentrations: Drug Level Amphetamines 500 ng/mL Benzodiazepines 100 ng/mL Cannabinoids 50 ng/mL Cocaine Metabolite 150 ng/mL Fentanyl 1 ng/mL Hydrocodone / Hydromorphone 300 ng/mL Methadone Metabolite 100 ng/mL Morphine / Codeine 300 ng/mL Oxycodone / Oxymorphone 100 ng/mL Screening results are presumptive and can only be used for medical purposes. Confirmatory testing is available upon request. *Note: Due to a large number of results and/or encounters for the requested time period, some results have not been displayed. A complete set of results can be found in Results Review. One time dose for anxiety during MRI * Telephone Encounter - Sasha Jiménez RN - 12/12/2023 11:04 AM EDT Pt returned call-notified that a rx will be sent in for Lorazepam 1 mg 1 tab 1 hr prior to MRI. Told would need a driver manager to take her to and from the MRI appt- pt agreeable. * Telephone Encounter - Sasha Jiménez RN - 12/12/2023 10:29 AM EDT Rx pended. Call to pt-no answer-message left to call back at [phone]. * Telephone Encounter - Ferny Sr DO - 12/12/2023 9:00 AM EDT Patient can have Lorazepam 1 mg x 1 one hour before MRI * Telephone Encounter - Sasha Balderas LPN - 12/09/2023 4:09 PM EDT We put them in on their stomach with arm outstretched above head. The patient's head will be in thescanner ----- Message ----- * Telephone Encounter - Ferny Sr DO - 12/09/2023 2:43 PM EDT I do not believe that her head will be in the MRI scanner for wrist MRI. Can you check with radiology techs * Telephone Encounter - Monse Butler OSA - 12/09/2023 1:22 PM EDT 01/03/2024 is her MRI Said she needs to be knocked out to have done Please call some thing in documented in this encounter Plan of Treatment Upcoming Encounters Date Type Department Care Team (Late st Contact Info) Description 12/16/2023 10:30 AM EDT Office Visit Family Practice [address] [place] [address] [address] [facility] [place] [phone] College, Pharmacist [address] [place] [address] 12/16/2023 11:00 AM EDT Office Visit Family Practice [facility] [address] [facility] [phone] College, Health Renal Dietitian Fam Prac [address] [address] 12/26/2023 11:00 AM EDT Office Visit Cardiology, [facility] [address] [facility] [place] [address] [facility] Cardiology [facility] [address] [facility] [place] [address] 01/03/2024 10:00 AM EDT Imaging Radiology [facility] [facility] [address] [place] [address] 02/24/2024 11:00 AM EDT Laboratory Laboratory [facility] [address] [place] [phone] Trish Salgado 200 [facility] [place] [address] 02/24/2024 12:00 PM EDT Office Visit Hematology/Oncolog y [facility] [place] [address] [place] [phone] Michelle Ruffin CRNP [address] [place] [address] [place] [address] 03/02/2024 2:30 PM EDT Hospital Encounter ENDO OSSC, Endoscopy Room [facility] [address] [place] [phone] Landon Kline [facility] [place] [address] 03/02/2024 2:30 PM EDT - 03/02/2024 3:00 PM EDT Surgery ENDO OSSC, Endoscopy Room [facility] [address] [place] [phone] Landon Kline MD [address] [facility] [place] [address] COLONOSCOPY FLEXIBLE PROXIMAL DIAGNOSTIC 04/02/2024 10:30 AM EDT [facility] [address] [place] [phone] Mara Archibald CRNP [address] [facility] [place] [address] 04/05/2024 10:40 AM EDT Office Visit Family Practice [address] [place] [address] 293 [facility] [place] [address] Ferny Sr DO 293 [place] [address] 05/11/2024 11:15 AM EST Office Visit Dermatology [facility] Estrada [address] [place] [address] [address] [place] Huertas MD [address] [place] [address] [address] Scheduled Procedures Name Priority Associated Diagnoses Date/Ti me COLONOSCOPY FLEXIBLE PROXIMAL DIAGNOSTIC History of colonic polyps 03/02/2024 2:30 PM EDT Health Maintenance Due Date Last Done Comments Alpha-1 Antitrypsin 12/02/1963 COVID-19 Vaccine ( season) 2023 04/29/2023, 05/14/2022, 12/11/2021, Additional history exists GFR 03/18/2024 09/16/2023, 08/08, 08/08/2023, Additional history exists HbA1c 06/04/2024 12/03/2023, 07/08, 03/18/2023, Additional history exists Diabetic Eye Exam 06/09/2024 06/09/2023, , 12/06/2022, Additional history exists Depression Screening 07/29/2024 07/29/2023 CKD HGB USE SMARTSET 43144 09/15/202409/15, 09/16/2023, 08/26/2023, Additional history exists CKD PHOS USE SMARTSET 71213 09/15/202409/04, 08/26/2023, 11/21/2022, Additional history exists O2 ASSESSMENT COMPLETED IN PAST YEAR FOR COPD 10/27/2024 10/28/2023 Albumin/Creatinine Ratio 12/02/2024 024, 07/15/2022, 08/15/2021, Additional history exists Colonoscopy 12/02/2024 12/03/2023, 03/0 07/2022, 02/13/2015, Additional history exists Diabetic Foot Exam 12/02/2024 12/03/2023, 0 12/03/2023, 11/13/2022, Additional history exists DXA Scan 08/18/2025 08/18/2023, [...] Discontinued 09/04/2022, 02/13/2015, 08/19/2011, Additional history exists Influenza Vaccine (FLU shot) Completed 03/18/2023, 03/13/2022, 03/26/2021, Additional history exists VITAMIN D LEVEL ONCE IN A LIFETIME-USE SMARTSET# 87164 Completed 08/26/2023, 07/15/2022, 03/13/2022, Additional history exists GARDASIL-HPV IMMUNIZATION SERIES Aged Out No longer eligible based on patient's age to complete this topic Hepatitis B Aged Out No longer eligi ble based on patient's age to complete this topic MENINGOCOCCAL (MENACTRA/MENVEO) Aged Out No longer eligible based on patient's age to complete this topic documented as of this encounter Medical Devices Implanted Type Area Driving Teacher Device Identifier Shelf Expiration Date Model / Serial / Lot Lens Intraoc 18.5 - [id number] - [id number] Implanted:Qty: 1 on 04/03/2021 by Irvin Canchola MD at OR [facility] Left: Eye [employer]OM[employer] 01/03/2026 [id number] / [id number] / [id number] Lens Intraoc 18.5 - [id number] - [id number] Implanted:Qty: 1 on 04/10/2021 by Irvin Canchola MD at OR [facility] Right: Eye [employer]OMB 01/03/2026 [id number] / [id number] / [id number] documented as of this encounter Care Teams Shredder Picker Relationship Specialty Start Date End Date Ferny Sr DO [address] [place] [address] PCP - General Internal Medicine 08/31/18 documented as of this encounter
--- OUTSIDE RECORDS SUMMARY | 2024-01-20 21:56 | External Medical Summary | Summary of Care ---
Author Name Unknown Organization [facility] Address [address] [place] [address] Phone [phone] Care Team Providers Care Art History Instructor Name Role Phone Ferny Sr DO Primary Care Provider [phone] Reason for Visit * Reason Onset Date Comments Medication Problem 12/23/2023 Encounter Details Date Type Department Care Team (Late st Contact Info) Description 12/23/2023 Telephone Family Practice [address], [place] [address] [place] [address] Betty Topete, [facility] 200 [facility] [place] [address] Medication Problem Allergies Active Allergy Reactions Criticality Noted Date Comments Clarithromycin Other (Please comment) Low 1 "Burning mouth" sensation. documented as of this encounter (statuses as of 12/29/2023) Medications Medication Sig Dispensed Refills Start Date End Date Status SenzariUCH ULTRA SYSTEM W/DEVICE KITIndications:DM type 2, goal [...] 0 Active Additional Information Patient taking differently:2 [place] Each NostrilHS, Indications: allergies, Reported on 08/13/2022 [...] by mouth daily. Active GNP Calcium 1200 6626-3425 MG-UNIT Oral Tablet Chewable Take 1 Tablet [...] Capsules by mouth daily. Active oxygen IN GASIndications:Sle ep apnea in adult 4 LPM bled through BIPAP during hours of sleep. 1 Each 2 Active OneTouch Ultra Blue In Vitro Strip (Glucose Blood)Indications: Type 2 diabetes, HbA1C goal < 8% ([facility]) TEST 3 X DAILY DX E11.9 100 Strip 5 2 Active ProAir HFA 108 (90 Base) MCG/ACT Inhalation Aerosol SolutionIndication s:Acute cough,COPD, group A, by GOLD 2017 classification ([facility]) Inhale 2 Puffs by mouth in the morning and 2 Puffs at noon and 2 Puffs in the evening and 2 Puffs before bedtime. 8 g 3 Active Empagliflozin 25 MG Oral Tablet (Jardiance)Indicat ions:Type 2 diabetes mellitus with diabetic peripheral angiopathy without gangrene, without long-term current use of insulin ([facility]),Type 2 diabetes mellitus with peripheral neuropathy ([facility]),Type 2 DM with CKD stage 3 and hypertension (HCC),Type 2 diabetes, HbA1C goal < 8% (HCC) Take 1 Tablet by mouth in the morning. 100 Tablet 2 4 Active Letrozole 2.5 MG Oral Tablet (Femara)Indication s:Malignant neoplasm of right breast in female, estrogen receptor positive, unspecified site of breast (HCC) Take 1 Tablet by mouth in the morning. 100 Tablet 3 4 Active amLODIPine Besylate 2.5 MG Oral Tablet (Norvasc)Indicatio ns:Type 2 DM with CKD stage 3 and hypertension (HCC) Take 1 Tablet by mouth in the morning. 100 Tablet 3 4 Active DULoxetine HCl 60 MG Oral Capsule Delayed Release Particles (Cymbalta) Take 1 Capsule by mouth at bedtime. 100 Capsule 2 4 Active Potassium Chloride ER 10 MEQ Oral Tablet Extended ReleaseIndications :Chronic diastolic congestive heart failure (HCC) Take 1 Tablet by mouth in the morning. 100 Tablet 2 4 Active Montelukast Sodium 10 MG Oral Tablet (Singulair)Indicat ions:Allergic rhinitis Take 1 Tablet by mouth every evening. 100 Tablet 3 4 Active Ozempic (1 MG/DOSE) 4 MG/3ML Subcutaneous Solution Pen-injector (Semaglutide (1 MG/DOSE))Indicatio ns:Type 2 DM with CKD stage 3 and [...] 30 minutes prior to injection. 6 mL 3 4 Active Gabapentin 300 MG Oral Capsule (Neurontin)Indicat ions:neuropathy Take one capsule by mouth in the evening and two capsule at bedtime 300 Capsule 4 Active Labetalol HCl 200 MG Oral Tablet (Normodyne)Indicat ions:HTN, goal: symptom mgmt only,Resistant hypertension,HTN, goal below 150/90,Fatigue, unspecified type Take 1 Tablet by mouth in the morning and 1 Tablet before bedtime. 200 Tablet 3 4 Active Ezetimibe 10 MG Oral Tablet (Zetia)Indications :Dyslipidemia, goal LDL below 70,Hyperlipidemia with target LDL less than 70,PAD (peripheral artery disease) ([facility]) Take 1 Tablet by mouth in the morning. 100 Tablet 3 4 Active Lisinopril 40 MG Oral TabletIndications: HTN, goal below 130/80 Take 1 Tablet by mouth in the morning. 100 Tablet 3 4 Active Insulin Glargine Solostar 100 UNIT/ML Subcutaneous Solution Pen-injectorIndica tions:Type 2 diabetes, HbA1C goal < 8% ([facility]),Type 2 DM with CKD stage 3 and hypertension ([facility]) Inject 30 Units under the skin [...] bedtime. 200 Tablet 3 4 Active Pen [place] 32G X 4 MMIndications:Type 2 diabetes mellitus with peripheral neuropathy (HCC) Use once daily with Lantus as directed 100 Each 3 4 Active Atorvastatin Calcium 80 MG Oral Tablet (Lipitor)Indicatio ns:Dyslipidemia, goal LDL below 160 Take 1 Tablet by mouth in the morning. 100 Tablet 2 4 Active Furosemide 40 MG Oral Tablet (Lasix) Take 1 Tablet by mouth in the morning and 1 Tablet before bedtime. 200 Tablet 3 4 Active oxyCODONE-Acetamin ophen 5-325 MG Oral Tablet (Percocet)Indicati ons:Disc disorder of lumbar region Take 1 Tablet by mouth every 8 hours as needed for Pain, Severe. 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 Type 2 [...] BIPAP and oxygen 06/08 Overview: with 4 M [facility] Last Assessment & Plan: Compliant with BiPAP ADVANCE DIRECTIVE INFORMATION 12/07/2004 Overview: Yes, Patient instructed to provide copy of advance directive for provider to review and to be scanned into Electronic Medical Record Trigeminal neuralgia Mixed rhinitis Irritable bowel syndrome documented as of this encounter (statuses as of 12/29/2023) Resolved Problems Problem Noted Date Diagnosed Date Resolved Date Diabetes mellitus with stage 3 chronic kidney disease 07/15/2022 07/15/2022 Diabetes mellitus 07/15/2022 09/10/2022 Hypertensive heart disease without CHF 01/04/2022 07/15/2022 Class 2 severe obesity with serious comorbidity and body mass index (BMI) of 39.0 to 39.9 in adult 01/04/2022 12/03/2023 Open-angle glaucoma 06/14/2021 10/16/19 Atherosclerosis of [place] co ronary artery without angina pectoris 03/26/2021 [...] as of this encounter (statuses as of 12/29/2023) Immunizations Name Administration Dates Next Due COVID-19 mRNA, LNP-s, No Pre serve, 2-Dose Series (SUPENTA) 05/14/2021,09/21/2020,08/31/2020 COVID-19, LNP-s, No Preserve , Jose-sucrose, Ages 12+ (Pfizer) 12/11/2021 COVID-19, MRNA-LNP, 23-24, P F, 30 MCG/0.3 mL, 12 YRS AND ABOVE, IM ([address] [place]) 04/29/2023 Covid-19, Mrna, Lnp-s, Pf, B ivalent, [...] encounter Miscellaneous Notes * Telephone Encounter - Gary Mendiola [facility] - 12/24/2023 9:46 AM EDT Betty - covering your inbasket today - would patient qualify for Novocare? [email or web address]://[email or web address]/[email or web address]-hgla-obeci/pap.[email or web address] Income limits are pretty generous with this one. Got a couple people qualified here in [place]. * Telephone Encounter - Betty Topete [facility] - 12/23/2023 4:25 PM EDT Patient reporting that Ozempic is going to cost > $600 for 90 day supply. Forwarding to pharmacy reimbursement for assistance as patient jose enrolled in [place] and [employer]. I have screened patient in the past for PACE and they are above income limit. I am unsure if above limit for Celeste Nordisk. documented in this encounter Plan of Treatment Upcoming Encounters Date Type Department Care Team (Latest Contact Info) Description 01/03/2024 10:00 AM EDT Imaging Radiology [facility] [address] [place] [address] 02/24/2024 11:00 AM EDT Laboratory Laboratory Yvette Salgado [place] [address] [place] [phone] [facility] [place] [address] 02/24/2024 12:00 PM EDT Office Visit Hematology/Oncolog y [facility]vette Salgado [place] [address] [place] [phone] Michelle Ruffin CRNP [address] [place] [address] 03/02/2024 2:30 PM EDT Hospital Encounter ENDO [facility], Endoscopy Room [facility] 132 [facility] [place] [phone] Landon Kline MD [address] [place] [address] 03/02/2024 2:30 PM EDT - 03/02/2024 3:00 PM EDT Surgery ENDO [facility], Endoscopy Room [facility] [place] [phone] Landon Kline MD 132 [facility] [address] COLONOSCOPY FLEXIBLE PROXIMAL DIAGNOSTIC 04/02/2024 10:30 AM EDT Office Visit Sleep Disorders Ctr [facility] 132 [facility] [place] [phone] Mara Archibald CRNP 132 [facility] [place] [address] 04/05/2024 10:40 AM EDT Office Visit Family Practice [address] [place] [address] 293 [facility], [place] [phone] Ferny Sr DO 293 [facility] [place] [address] 05/11/2024 11:15 AM EST Office Visit Dermatology [facility]omi [place] 200 [facility] [place] [address] Kingston Huertas MD [address] [place] [address] Scheduled Procedures Name Priority Associated Diagnoses Date/Ti [...] Screening 07/29/2024 07/29/2023 CKD HGB USE SMARTSET 62202 09/15/202409/15, 09/16/2023, 08/26/2023, Additional history exists CKD PHOS USE SMARTSET 36673 09/15/202409/04, 08/26/2023, 11/21/2022, Additional history exists O2 ASSESSMENT COMPLETED IN PAST YEAR FOR COPD 10/27/2024 10/28/2023 Albumin/Creatinine Ratio 12/02/2024 024, 07/15/2022, 08/15/2021, Additional history exists Colonoscopy 12/02/2024 12/03/2023, 0307/2022, 02/13/2015, Additional history exists Diabetic Foot Exam [...] D LEVEL ONCE IN A LIFETIME-USE SMARTSET# [id number] Completed 08/26/2023, 07/15/2022, 03/13/2022, Additional history exists [...] this encounter Medical Devices Implanted Type Area 3D Animator Device Identifier Shelf Expiration Date Model / Serial / Lot Lens Intraoc 18.5 - [id number] - [id number] Implanted:Qty: 1 on 04/03/2021 by Irvin Canchola MD at OR [facility] Left: Eye [employer]CH [employer] LOMB 01/03/2026 [id number] / [id number] / [id number] Lens Intraoc 18.5 - [id number] - [id number] Implanted:Qty: 1 on 04/10/2021 by Irvin Canchola MD at OR [facility] Right: Eye BAUSCH & LOMB 01/03/2026 [id number] / [id number] / [id number] documented as of this encounter Visit Diagnoses Diagnosis Type 2 diabetes, HbA1C goal < 8% (HCC)- Primary Type II or unspecified type diabetes mellitus without mention of complication, not stated as uncontrolled History of colonic polyps Personal history of colonic polyps documented in this encounter Care Teams Art History Instructor Relationship Specialty Start Date End Date Ferny Sr DO [address] [place] [address] PCP - General Internal Medicine 12/18/23 documented as of this encounter
--- OUTSIDE RECORDS SUMMARY | 2024-01-20 21:56 | External Medical Summary | Summary of Care ---
Author Name Unknown Organization [facility] Address [address] [place] [address] Phone [phone] Care Team Providers Care Electrical Tech Name Role Phone Ferny Sr DO Primary Care Provider [phone] Encounter Details Date Type Department Care Team (Late st Contact Info) Description 12/29/2023 Population Health External Data Unspecified Department Allergies Active Allergy Reactions Criticality Noted Date Comments Clarithromycin Other (Please comment) Low 1 "Burning mouth" sensation. documented as of this encounter (statuses as of 12/30/2023) Medications Medication Sig Dispensed Refills Start Date End Date Status [employer] Financial TechnologiesUCH ULTRA SYSTEM W/DEVICE KITIndications:DM type 2, goal [...] 01/11/2020 Active Additional Information Patient taking differently:2 [place] Each NostrilHS, Indications: allergies, Reported on 08/13/2022 [...] by mouth daily. Active GNP Calcium 1200 2434-6076 MG-UNIT Oral Tablet Chewable Take 1 Tablet [...] bedtime. 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 Type 2 [...] oxygen 06/08 Overview: with 4 LPM [facility] Last Assessment & Plan: Compliant with BiPAP ADVANCE DIRECTIVE INFORMATION 12/07/2004 Overview: Yes, Patient instructed to provide copy of advance directive for provider to review and to be scanned into Electronic Medical Record Trigeminal neuralgia Mixed rhinitis Irritable bowel syndrome documented as of this encounter (statuses as of 12/30/2023) Resolved Problems Problem Noted Date Diagnosed Date Resolved Date Diabetes mellitus with stage 3 chronic kidney disease 07/15/2022 07/15/2022 Diabetes mellitus 07/15/2022 09/10/2022 Hypertensive heart disease without CHF 01/04/2022 07/15/2022 Class 2 severe obesity with serious comorbidity and body mass index (BMI) of 39.0 to 39.9 in adult 01/04/2022 12/03/2023 Open-angle glaucoma 06/14/2021 10/16/19 22 Atherosclerosis of [place] co ronary artery without angina pectoris 03/26/2021 [...] as of this encounter (statuses as of 12/30/2023) Immunizations Name Administration Dates Next Due COVID-19 mRNA, LNP-s, No Pre serve, 2-Dose Series (Appstarter) 05/14/2021,09/21/2020,08/31/2020 COVID-19, LNP-s, No Preserve , Jose-sucrose, Ages 12+ (Appstarter) 12/11/2021 COVID-19, MRNA-LNP, 23-24, P F, 30 [...] Description 01/03/2024 10:00 AM EDT Imaging Radiology [facility] 1st [facility] [place] [address] [place] [address] 02/24/2024 11:00 AM EDT Laboratory Laboratory [facility] [address] [place] [phone] Trish Salgado [facility] [address] [place] [address] 02/24/2024 12:00 PM EDT Office Visit Hematology/Oncolog y [facility] [place] [address] [place] [phone] Michelle Ruffin CRNP [address] [facility] [place] [address] 03/02/2024 2:30 PM EDT Hospital Encounter ENDO [facility], Endoscopy Room [facility] [address] [place] [phone] Landon Kline MD [address] [place] [address] 03/02/2024 2:30 PM EDT - 03/02/2024 3:00 PM EDT Surgery ENDO [facility], Endoscopy Room [facility] [address] [place] [phone] Landon Kline MD [address] [place] [address] COLONOSCOPY FLEXIBLE PROXIMAL DIAGNOSTIC 04/02/2024 10:30 AM EDT Office Visit Sleep Disorders Ctr [facility] [address] [place] [phone] Mara Archibald CRNP [address] [place] [address] 04/05/2024 10:40 AM EDT Office Visit Family [address] [place] [facility], [place] [phone] Ferny Sr, DO [address] [place] [address] 05/11/2024 11:15 AM EST Office Visit Dermatology Yvette Salgado [place] 200 [facility] [place] [address] Kingston Huertas MD 200 [facility] [place] [address] Scheduled Procedures Name Priority Associated Diagnoses Date/Ti [...] Screening 07/29/2024 07/29/2023 CKD HGB USE SMARTSET 54911 09/15/202409/15, 09/16/2023, 08/26/2023, Additional history exists CKD PHOS USE SMARTSET 85337 09/15/202409/04, 08/26/2023, 11/21/2022, Additional history exists O2 ASSESSMENT COMPLETED IN PAST YEAR FOR COPD 10/27/2024 10/28/2023 Albumin/Creatinine Ratio 12/02/2024 024, 07/15/2022, 08/15/2021, Additional history exists Colonoscopy 12/02/2024 12/03/2023, 03/07/2022, 02/13/2015, Additional history exists Diabetic Foot Exam [...] D LEVEL ONCE IN A LIFETIME-USE SMARTSET# 23086 Completed 08/26/2023, 07/15/2022, 03/13/2022, Additional history exists [...] this encounter Medical Devices Implanted Type Area Educational Aide Device Identifier Shelf Expiration Date Model / Serial / Lot Lens Intraoc 18.5 - [id number] - [id number] Implanted:Qty: 1 on 04/03/2021 by Irvin Canchola MD at [facility] Left: Eye BAUSCH & LOMB 01/03/2026 [id number] / [id number] / [id number] Lens Intraoc 18.5 - [id number] - [id number] Implanted:Qty: 1 on 04/10/2021 by Irvin Canchola MD at OR [facility] Right: Eye BA[employer]CH & LOMB 01/03/2026 [id number] / [id number] / [id number] documented as of this encounter Care Teams Electrical Tech Relationship Specialty Start Date End Date Ferny Sr DO [address] [place] [address] PCP - General Internal Medicine 12/18/23 documented as of this encounter
--- OUTSIDE RECORDS SUMMARY | 2024-01-20 21:56 | External Medical Summary | Summary of Care ---
Author Name Unknown Organization [facility] Address [address] [place] [address] Phone [phone] Care Team Providers Care Injection Machine Operator Name Role Phone Elnoam Disha Pillai DO Primary Care Provider [phone] Reason for Visit * Reason Onset Date Comments Medication Refill 12/10/2023 Encounter Details Date Type Department Care Team (Late st Contact Info) Description 12/10/2023 Refill Care Coordination and Integration [address] [place], [place] [phone] Kerline Wilkins, RN [address], [place] [phone] Allergies Active Allergy Reactions Criticality Noted Date Comments Clarithromycin Other (Please comment) Low 1 "Burning mouth" sensation. documented as of this encounter (statuses as of 12/10/2023) Medications Medication Sig Dispensed Refills Start Date [...] 0 Active Additional Information Patient taking differently:2 [place] Each NostrilHS, Indications: allergies, Reported on 08/13/2022 [...] by mouth daily. Active GNP Calcium 1200 1515-8535 MG-UNIT Oral Tablet Chewable Take 1 Tablet [...] ype 2 diabetes, HbA1C goal < 8% ([facility]) TEST 3 X DAILY DX E11.9 100 Strip 5 2 Active ProAir HFA 108 (90 Base) MCG/ACT Inhalation Aerosol SolutionIndications :Acute cough,COPD, group A, by GOLD 2017 classification ([facility]) Inhale 2 Puffs by mouth in the morning and 2 Puffs at noon and 2 Puffs in the evening and 2 Puffs before bedtime. 8 g 3 Active Empagliflozin 25 MG Oral Tablet (Jardiance)Indicati ons:Type 2 diabetes mellitus with diabetic peripheral angiopathy without gangrene, without long-term current use of insulin ([facility]),Type 2 diabetes mellitus with peripheral neuropathy ([facility]),Type 2 DM with CKD stage 3 and [...] the morning. 100 Tablet 3 4 Active Repatha SureClick 140 MG/ML Subcutaneous [...] LDL less than 70,PAD (peripheral artery disease) ([facility]) Take 1 Tablet by mouth in the morning. 100 Tablet 3 4 Active Lisinopril 40 MG Oral TabletIndications:H TN, goal below 130/80 Take 1 Tablet by mouth in the morning. 100 Tablet 3 4 Active Insulin Glargine Solostar 100 UNIT/ML Subcutaneous Solution Pen-injectorIndicat ions:Type 2 diabetes, HbA1C goal < 8% ([facility]),Type 2 DM with CKD stage 3 and hypertension ([facility]) Inject 30 Units under the skin every [...] bedtime. 200 Tablet 3 4 Active Pen [place] 32G X 4 MMIndications:Type 2 diabetes mellitus with peripheral neuropathy ([facility]) Use once daily with Lantus as directed [...] for Pain, Severe. 90 Tablet 4 Active Furosemide 40 MG Oral Tablet (Lasix) Take 1 Tablet by mouth in the morning and 1 Tablet before bedtime. 200 Tablet 3 4 Active Furosemide 40 MG Oral Tablet (Lasix) take 1 tablet by mouth twice a day 180 Tablet 2 3 12/10/19 24 Discontinu ed(Refill) documented as of this encounter (statuses as of 12/10/2023) Active Problems Problem Noted Date Diagnosed Date [...] and oxygen 06/08 Overview: with 4 LPM [facility] Last Assessment & Plan: Compliant with BiPAP ADVANCE DIRECTIVE INFORMATION 12/07/2004 Overview: Yes, Patient instructed to provide copy of advance directive for provider to review and to be scanned into Electronic Medical Record Trigeminal neuralgia Mixed rhinitis Irritable bowel syndrome documented as of this encounter (statuses as of 12/10/2023) Resolved Problems Problem Noted Date Diagnosed Date Resolved Date Diabetes mellitus with stage 3 chronic kidney disease 07/15/2022 07/15/2022 Diabetes mellitus 07/15/2022 09/10/2022 Hypertensive heart disease without CHF 01/04/2022 07/15/2022 Class 2 severe obesity with serious comorbidity and body mass index (BMI) of 39.0 to 39.9 in adult 01/04/2022 12/03/2023 Open-angle glaucoma 06/14/2021 10/16/19 22 Atherosclerosis of [place] co ronary artery without angina pectoris 03/26/2021 [...] as of this encounter (statuses as of 12/10/2023) Immunizations Name Administration Dates Next Due COVID-19 mRNA, LNP-s, No Pre serve, 2-Dose Series (Trippy Bandz) 05/14/2021,09/21/2020,08/31/2020 COVID-19, LNP-s, No Preserve , Jose-sucrose, Ages 12+ (Pfizer) 12/11/2021 COVID-19, MRNA-LNP, 23-24, P F, 30 MCG/0.3 mL, 12 YRS AND ABOVE, IM [facility] 04/29/2023 Covid-19, Mrna, Lnp-s, Pf, B ivalent, [...] encounter Miscellaneous Notes * Telephone Encounter - Disha Sr DO - 12/10/2023 3:27 PM EDTSigned Prescriptions: Disp Refills Furosemide 40 MG Oral Tablet (Lasix) 200 Ta*3 Sig: Take 1 Tabletby mouth in the morning and 1 Tablet before bedtime.Authorizing Provider: DISHA SR * Telephone Encounter - Kerline Wilkins RN - 12/10/2023 2:30 PM EDT Did you pend patient's preferred pharmacy and medication before forwarding?yes Pharmacy: [facility] Pending Prescriptions: Disp Refills Furosemide 40 MG Oral Tablet (Lasix) 180 Ta*2 Sig: Take 1 Tablet by mouth in the morning and 1 Tablet before bedtime. Last Visit: Visit date not found (in office), Visit date not found (telemedicine) Next Visit: Visit date not found If no future appointments scheduled, and last appointment is greater than a year ago, please schedule patient for a follow-up appointment Last date the medication was ordered: 05/28/2023 Is this request for a controlled substance?No Urine Drug Screen: Results for orders placed or performed in [...] results can be found in Results Review. Patient Phone Numbers Labs: Lab Results Component Value Date/Time CREAT 1.1 (H) 09/16/2023 10:49 AM CREAT 0.9 05/12/2020 08:26 AM POTASSIUM 4.1 09/16/2023 10:49 AM POTASSIUM 4.7 05/12/2020 08:26 AM TSH 2.75 12/03/2023 12:11 PM TSH 9.06 (H) 12/24/2019 11:15 AM LDLCALC 109 07/29/2023 10:56 AM LDLCALC 124 04/16/2019 11:47 AM LDLDIRECT 83 09/16/2023 10:49 AM LDLDIRECT NOT APPLICABLE 04/16/2019 11:47 AM LDLDIRECT 120 05/14/2016 12:23 PM ALT 10 09/16/2023 10:49 AM ALT 17 05/12/2020 08:26 AM HGBA1C 6.3 (H) 12/03/2023 12:11 PM HGBA1C 6.6 (H) 01/23/2021 03:26 PM HGBA1C 7.7 (H) 05/12/2020 08:26 AM documented in this encounter Plan of Treatment Upcoming Encounters Date Type Department Care Team (Late st Contact Info) Description 12/16/2023 10:30 AM EDT Office Visit Family Practice [address], [place] [address] [facility] [place] [address] [place], Pharmacist [address] [place] [address] 12/26/2023 11:00 AM EDT Office Visit [facility], [facility] [address] [facility] Card[facility] [address] 01/03/2024 10:00 AM EDT Imaging Radiology [facility] 132 [facility] [place] [address] 02/24/2024 11:00 AM EDT Laboratory Laboratory [facility] [address] [place] [phone] Naomi Lab [facility] [address] [place] [address] 02/24/2024 12:00 PM EDT Office Visit Hematology/Oncolog y [facility] [place] [address] [place] [phone] Michelle Ruffin CRNP [address] [place] [address] [place] [address] 03/02/2024 2:30 PM EDT Hospital Encounter ENDO [facility], Endoscopy Room [facility] [address] [place] [phone] Landon Kline MD [address] [place] [address] 03/02/2024 2:30 PM EDT - 03/02/2024 3:00 PM EDT [facility] [address] [place] [phone] Landon Kline MD [address] [place] [address] COLONOSCOPY FLEXIBLE PROXIMAL DIAGNOSTIC 04/02/2024 10:30 AM EDT [facility] 132 [facility] [place] [phone] Mara Archibald CRNP [facility] [address] 04/05/2024 10:40 AM EDT Office Visit Family Practice [address] [place] [address] 293 [facility] [place] [address] Disha Sr, 293 [place] [address] 05/11/2024 11:15 AM EST Office Visit Dermatology [facility] 200 [facility] [place] [address] Kingston Huertas MD 200 [facility] [place] [address] Scheduled Procedures Name Priority Associated Diagnoses Date/Ti [...] Screening 07/29/2024 07/29/2023 CKD HGB USE SMARTSET 81711 09/15/202409/15, 09/16/2023, 08/26/2023, Additional history exists CKD PHOS USE SMARTSET 40575 09/15/202409/04, 08/26/2023, 11/21/2022, Additional history exists O2 ASSESSMENT COMPLETED IN PAST YEAR FOR COPD 10/27/2024 10/28/2023 Albumin/Creatinine Ratio 12/02/2024 024, 07/15/2022, 08/15/2021, Additional history exists Colonoscopy 12/02/2024 12/03/2023, 07/2022, 02/13/2015, Additional history exists Diabetic Foot Exam 12/02/2024 12/03/2023, 0 12/03/2023, 11/13/2022, Additional history exists DXA Scan 08/18/2025 08/18/2023, 020 03/2022, 10/19/2012, Additional history exists DTaP,Tdap,and Td Vaccines (3 [...] D LEVEL ONCE IN A LIFETIME-USE SMARTSET# 56329 Completed 08/26/2023, 07/15/2022, 03/13/2022, Additional history exists [...] this encounter Medical Devices Implanted Type Area Asphalt Tile Floor Layer Device Identifier Shelf Expiration Date Model / Serial / Lot Lens Intraoc 18.5 - [id number] - [id number] Implanted:Qty: 1 on 04/03/2021 by Irvin Canchola MD at OR [facility] Left: Eye BAUSCH & LOMB 01/03/2026 [id number] / [id number] / [id number] Lens Intraoc 18.5 - [id number] - [id number] Implanted:Qty: 1 on 04/10/2021 by Irvin Canchola MD at OR [facility] Right: Eye BAUSCH & LOMB 01/03/2026 [id number] / [id number] / [id number] documented as of this encounter Care Teams Injection Machine Operator Relationship Specialty Start Date End Date Disha Sr DO [address] [facility] [place] [address] PCP - General Internal Medicine 08/31/18 documented as of this encounter
--- OUTSIDE RECORDS SUMMARY | 2024-01-20 21:56 | External Medical Summary | Summary of Care ---
Author Name Unknown Organization [facility] Address [address] [place] [address] Phone [phone] Care Team Providers Care Environmental Services Supervisor Name Role Phone Ferny Sr DO Primary Care Provider [phone] Encounter Details Date Type Department Care Team (Late st Contact Info) Description 12/29/2023 Orders Only Outcomes Research Department [address] [place], [place] [phone] Jen Beasley CHRA [employer] [facility] Other*[id number] Allergies Active Allergy Reactions Criticality Noted Date Comments Clarithromycin Other (Please comment) Low 1 "Burning mouth" sensation. documented as of this encounter (statuses as of 12/29/2023) Medications Medication Sig Dispensed Refills Start Date End Date Status Aastrom BiosciencesTOUCH ULTRA SYSTEM W/DEVICE KITIndications:DM type 2, goal [...] 01/11/2020 Active Additional Information Patient taking differently:2 [place] Each NostrilHS, Indications: allergies, Reported on 08/13/2022 [...] by mouth daily. Active GNP Calcium 1200 0702-4050 MG-UNIT Oral Tablet Chewable Take 1 Tablet [...] pe 2 diabetes, HbA1C goal < 8% ([facility]),Type 2 diabetes mellitus with peripheral neuropathy ([facility]),Type 2 DM with CKD stage 3 and hypertension ([facility]),Type 2 diabetes, HbA1C goal < 8% ([facility]) Take 1 Tablet by [...] ons:Type 2 diabetes, HbA1C goal < 8% ([facility] [...] bedtime. 200 Tablet 3 10/28/2023 Active Pen [place] 32G X 4 MMIndications:Type 2 diabetes mellitus with peripheral neuropathy (HCC) Use once daily with Lantus as directed 100 Each 3 11/12/2023 Active Atorvastatin Calcium 80 MG Oral Tablet (Lipitor)Indications :Dyslipidemia, goal LDL below 160 Take 1 Tablet by mouth in the morning. 100 Tablet 2 11/24/2023 Active oxyCODONE-Acetaminop hen 5-325 MG Oral Tablet (Percocet)Indication s:Disc disorder of lumbar region Take 1 Tablet by mouth every 8 hours as needed for Pain, Severe. 90 Tablet 11/25/2023 Active Furosemide 40 MG Oral Tablet (Lasix) Take 1 Tablet by mouth in the morning and 1 Tablet before bedtime. 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 Type 2 [...] and oxygen 06/08 Overview: with 4 LPM [facility] Last Assessment & Plan: Compliant [...] 12/03/2023 Open-angle glaucoma 06/14/2021 10/16/19 Atherosclerosis of [place] co ronary artery without angina pectoris 03/26/2021 [...] mRNA, LNP-s, No Pre serve, 2-Dose Series ([employer]) 05/14/2021,09/21/2020,08/31/2020 COVID-19, LNP-s, No Preserve , Jose-sucrose, [...] Description 01/03/2024 10:00 AM EDT Imaging Radiology [address] [place] [address] 02/24/2024 11:00 AM EDT Laboratory Laboratory [facility] [address] [place] [phone] [place], [address] Scenery [address] [place] [address] 02/24/2024 12:00 PM EDT Office Visit Hematology/Oncolog y [facility] [address] [place] [phone] Michelle Ruffin CRNP [address] [place] [address] [place] [address] 03/02/2024 2:30 PM EDT Hospital Encounter ENDO [facility], Endoscopy Room [facility] [address] [place] [phone] Landon Kline MD [address] [place] [address] 03/02/2024 2:30 PM EDT - 03/02/2024 3:00 PM EDT Surgery ENDO [facility], Endoscopy Room [facility] [address] [place] [phone] Landon Kline MD [address] [place] [address] COLONOSCOPY FLEXIBLE PROXIMAL DIAGNOSTIC 04/02/2024 10:30 AM EDT Office Visit Sleep Disorders Ctr [facility] [address] [place] [phone] Mara Archibald CRNP [address] [place] [address] 04/05/2024 10:40 AM EDT Office Visit Family Practice 65 [facility] [place] [address] [place] [address] Ferny Sr DO [address] [facility] [place] [address] 05/11/2024 11:15 AM EST Office Visit Dermatology [facility] 200 [facility] [place] [address] Kingston Huertas MD 200 [facility] [place], [place] [address] Scheduled Orders Name Type Priority Associated Diagnoses Orde r Schedule MYCODE SUBSEQUENT ADULT Lab Routine [employer] [facility] Other*[id number] Every 6 Months for 2 Occurrences starting 12/29/2023 until 01/17/2025 Scheduled Procedures Name Priority Associated Diagnoses Date/Ti [...] Screening 07/29/2024 07/29/2023 CKD HGB USE SMARTSET 15641 09/15/202409/15, 09/16/2023, 08/26/2023, Additional history exists CKD PHOS USE SMARTSET 13395 09/15/202409/04, 08/26/2023, 11/21/2022, Additional history exists O2 [...] D LEVEL ONCE IN A LIFETIME-USE SMARTSET# 49970 Completed 08/26/2023, 07/15/2022, 03/13/2022, Additional history exists [...] this encounter Medical Devices Implanted Type Area Leather Stitcher Device Identifier Shelf Expiration Date Model / Serial / Lot Lens Intraoc 18.5 - [id number] - [id number] Implanted:Qty: 1 on 04/03/2021 by Irvin Canchola MD at OR [facility] Left: Eye BAUSCH & LOMB 01/03/2026 [id number] / [id number] / [id number] Lens Intraoc 18.5 - [id number] - [id number] Implanted:Qty: 1 on 04/10/2021 by Irvin Canchola MD at OR [facility] Right: Eye BAUSCH & LOMB 01/03/2026 [id number] / [id number] / [id number] documented as of this encounter Visit Diagnoses Diagnosis [employer] [facility] Other*[id number] History of colonic polyps Personal history of colonic polyps documented in this encounter Care Teams Environmental Services Supervisor Relationship Specialty Start Date End Date Ferny Sr DO [address] [place] [address] PCP - General Internal Medicine 12/18/23 documented as of this encounter
--- OUTSIDE RECORDS SUMMARY | 2024-01-20 21:56 | External Medical Summary | Summary of Care ---
Author Name Unknown Organization [facility] Address [address] [place] [address] Phone [phone] Care Team Providers Care Lactation Nurse Name Role Phone Ferny Sr DO Primary Care Provider [phone] Reason for Referral * Evaluate & Treat - Unlimited Visits (Within 10 days (routine)) - Authorized Specialty Diagnoses / Procedures Referred By Nadir dimas Referred To Contact Orthopaedic Surgery / Orthopedics Diagnoses Complex tear of triangular fibrocartilage of left wrist, initial encounter Left scapholunate ligament tear, initial encounter Ferny Sr DO [address] [place] [address] Referral ID Status Reason Start Date Expiration Date Visits Requested Visits Authorized [id number] Authorized Specialty Services Required 01/05/2024 999 999 Question Answer Referral Priority Within 10 days (routine) Where should this appointment be scheduled? Low What body part is the patient being seen for? Hand - left hand What condition is the patient being seen for? Sprain/Strain/Tear/Other - Triangular fibrocartilage tear; scapholunate tear Comments MRI 01/03/24 Reason for Visit * Reason Onset Date Comments Test Results 01/05/202401/04 Encounter Details Date Type Department Care Team (Late st Contact Info) Description 01/05/2024 Telephone Family Practice [address] [place] [address] [place] [phone] Ferny Sr DO [address] [place] [address] Test Results (01/04) Allergies Active Allergy Reactions Criticality Noted Date Comments Clarithromycin Other (Please comment) Low 1 "Burning mouth" sensation. documented as of this encounter (statuses as of 01/05/2024) Medications Medication Sig Dispensed Refills Start Date [...] 01/11/2020 Active Additional Information Patient taking differently:2 [place] Each NostrilHS, Indications: allergies, Reported on 08/13/2022 [...] by mouth daily. Active GNP Calcium 1200 6295-5157 MG-UNIT Oral Tablet Chewable Take 1 Tablet [...] diabetes, HbA1C goal < 8% ([facility]) TEST 3 X DAILY DX E11.9 100 Strip 5 06/11/2022 Active ProAir HFA 108 (90 Base) MCG/ACT Inhalation Aerosol SolutionIndications: Acute cough,COPD, group A, by GOLD 2017 classification ([facility]) Inhale 2 Puffs by mouth in the morning and 2 Puffs at noon and 2 Puffs in the evening and 2 Puffs before bedtime. 8 g 09/13/2022 Active Empagliflozin 25 MG Oral Tablet (Jardiance)Indicatio ns:Type 2 diabetes mellitus with diabetic peripheral angiopathy without gangrene, without long-term current use of insulin ([facility]),Type 2 diabetes mellitus with peripheral neuropathy ([facility]),Type 2 DM with CKD stage 3 and hypertension ([facility]),Type 2 diabetes, HbA1C goal < 8% ([facility]) Take 1 Tablet by mouth in the morning. 100 Tablet 2 08/04/2023 Active Letrozole 2.5 MG Oral Tablet (Femara)Indications: Malignant neoplasm of right breast in female, estrogen receptor positive, unspecified site of breast ([facility]) Take 1 Tablet by mouth in the morning. 100 Tablet 3 08/04/2023 Active amLODIPine Besylate 2.5 MG Oral Tablet (Norvasc)Indications :Type 2 DM with CKD stage 3 and hypertension ([facility]) Take 1 Tablet by mouth in the morning. 100 Tablet 3 08/13/2023 Active DULoxetine HCl 60 MG Oral Capsule Delayed Release Particles (Cymbalta) Take 1 Capsule by mouth at bedtime. 100 Capsule 2 08/20/2023 Active Potassium Chloride ER 10 MEQ Oral Tablet Extended ReleaseIndications:C hronic diastolic congestive heart failure ([facility]) Take 1 Tablet by mouth in the morning. 100 Tablet 2 08/20/2023 Active Montelukast Sodium 10 MG Oral Tablet (Singulair)Indicatio ns:Allergic rhinitis Take 1 Tablet by mouth every evening. 100 Tablet 3 08/25/2023 Active Ozempic (1 MG/DOSE) 4 MG/3ML Subcutaneous Solution Pen-injector (Semaglutide (1 MG/DOSE))Indications :Type 2 DM with CKD stage 3 and hypertension ([facility]) Inject 1 mg under the skin once a week. 9 mL 3 08/25/2023 Active Folic Acid 1 MG Oral Tablet Take 1 Tablet by mouth in the morning. 100 Tablet 3 08/25/2023 Active Repatha SureClick 140 MG/ML Subcutaneous Solution Auto-injector (evolocumab) Inject 140 mg (1 pen) under the skin every 14 days. Remove from refrigerator 30 minutes prior to injection. 6 mL 3 08/27/2023 Active Gabapentin 300 MG Oral Capsule (Neurontin)Indicatio ns:neuropathy Take one capsule by mouth in the evening and two capsule at bedtime 300 Capsule 3 09/04/2023 Active Labetalol HCl 200 MG Oral Tablet (Normodyne)Indicatio ns:HTN, goal: symptom mgmt only,Resistant hypertension,HTN, goal below 150/90,Fatigue, unspecified type Take 1 Tablet by mouth in the morning and 1 Tablet before bedtime. 200 Tablet 3 09/04/2023 Active Ezetimibe 10 MG Oral Tablet [...] ons:Type 2 diabetes, HbA1C goal < 8% (HCC),Type 2 DM with CKD stage 3 and hypertension (HCC) Inject 30 Units under the skin every [...] bedtime. 200 Tablet 3 10/28/2023 Active Pen [place] 32G X 4 MMIndications:Type 2 diabetes mellitus [...] as of this encounter (statuses as of 01/05/2024) Active Problems Problem Noted Date Diagnosed Date Osteoporosis without current pathological fractu re 08/27/2023 USP current use of aromatase inhibitor Type 2 [...] and oxygen 06/08 Overview: with 4 LPM [facility] Last Assessment & Plan: Compliant with BiPAP ADVANCE DIRECTIVE INFORMATION 12/07/2004 Overview: Yes, Patient instructed to provide copy of advance directive for provider to review and to be scanned into Electronic Medical Record Trigeminal neuralgia Mixed rhinitis Irritable bowel syndrome documented as of this encounter (statuses as of 01/05/2024) Resolved Problems Problem Noted Date Diagnosed Date Resolved Date Diabetes mellitus with stage 3 chronic kidney disease 07/15/2022 07/15/2022 Diabetes mellitus 07/15/2022 09/10/2022 Hypertensive heart disease without CHF 01/04/2022 07/15/2022 Class 2 severe obesity with serious comorbidity and body mass index (BMI) of 39.0 to 39.9 in adult 01/04/2022 12/03/2023 Open-angle glaucoma 06/14/2021 10/16/19 Atherosclerosis of [place] co ronary artery without angina pectoris 03/26/2021 [...] as of this encounter (statuses as of 01/05/2024) Immunizations Name Administration Dates Next Due COVID-19 mRNA, LNP-s, No Pre serve, 2-Dose Series ([employer]) 05/14/2021,09/21/2020,08/31/2020 COVID-19, LNP-s, No Preserve , Jose-sucrose, Ages 12+ ([employer]) 12/11/2021 COVID-19, MRNA-LNP, 23-24, P F, 30 MCG/0.3 mL, 12 YRS AND ABOVE, IM [facility] 04/29/2023 Covid-19, Mrna, Lnp-s, Pf, B ivalent, [...] encounter Miscellaneous Notes * Telephone Encounter - Monse Chen OSA - 01/05/2024 4:16 PM EDT Appt scheduled, pt aware. * Telephone Encounter - Ferny Sr DO - 01/05/2024 4:11 PM EDT Schedule with orthopedics Referral signed * Telephone Encounter - Ann-Marie Claudio LPN - 01/05/2024 2:57 PM EDT Call placed to patient and relayed information from Dr. Sr. Pt acknowledged understanding. Agreeable to referral. 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 Thank you. 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 Triangular fibrocartilage tear. Scapholunate tear Refer to orthopedics / hand surgery documented in this encounter Plan of Treatment Upcoming Encounters Date Type Department Care Team (Latest Contact Info) Description 02/04/2024 9:30 AM EDT Office Visit Orthopaedics [facility] [address] [address] Gwyn Rayo MD [address] [address] 02/24/2024 11:00 AM EDT Laboratory Laboratory [facility] [address] [facility] [place] [phone] [facility] [address] [facility] [place] [address] 02/24/2024 12:00 PM EDT Office Visit Hematology/Oncolog y [facility] [address] [place] [phone] Michelle Ruffin CRNP [address] [place] [address] 03/02/2024 2:30 PM EDT Hospital Encounter ENDO [facility], Endoscopy Room [facility] [address] [phone] Landon Kline MD [address] [address] 03/02/2024 2:30 PM EDT - 03/02/2024 3:00 PM EDT Surgery ENDO [facility], Endoscopy Room [facility] [address] [place] [address] Landon Kline MD [address] [place] [address] COLONOSCOPY FLEXIBLE PROXIMAL DIAGNOSTIC 04/02/2024 10:30 AM EDT Office Visit Sleep Disorders Ctr [facility] 132 [facility] [place] [phone] Mar[facility]ald [facility] [address] 04/05/2024 10:40 AM EDT Office Visit Family Practice [address] [place] [address] [address] [place] [address] Ferny Sr, [address] [place] [address] 05/11/2024 11:15 AM EST Office Visit Dermatology [facility] [address] [place] [address] Kingston Huertas MD 200 [place] [address] Scheduled Procedures Name Priority Associated Diagnoses Date/Ti me COLONOSCOPY FLEXIBLE PROXIMAL DIAGNOSTIC History of colonic polyps 03/02/2024 2:30 PM EDT Scheduled Referrals Name Type Priority Associated Diagnoses Orde r Schedule ORTHOPAEDICS REFERRAL OP Referral Within 10 days (routine) Complex tear of triangular fibrocartilage of left wrist, initial encounter Left scapholunate ligament tear, initial encounter Ordered: 01/05/2024 Health Maintenance Due Date Last Done Comments Alpha-1 Antitrypsin 12/02/1963 COVID-19 Vaccine ( season) 2023 04/29/2023, 05/14/2022, 12/11/2021, Additional history exists Influenza Vaccine (FLU shot) (#1) 2024 03/18/2023, 03/13/2022, 03/26/2021, Additional history exists GFR 03/18/2024 09/16/2023, 08/08, 08/08/2023, Additional history exists HbA1c 06/04/2024 12/03/2023, 07/08, 03/18/2023, Additional history exists Depression Screening 07/29/2024 07/29/2023 CKD HGB USE SMARTSET 50421 09/15/202409/15, 09/16/2023, 08/26/2023, Additional history exists CKD PHOS USE SMARTSET 73273 09/15/202409/04, 08/26/2023, 11/21/2022, Additional history exists O2 [...] D LEVEL ONCE IN A LIFETIME-USE SMARTSET# 17988 Completed 08/26/2023, 07/15/2022, 03/13/2022, Additional history exists [...] this encounter Medical Devices Implanted Type Area Passenger Car Inspector Device Identifier Shelf Expiration Date Model / Serial / Lot Lens Intraoc 18.5 - [id number] - [id number] Implanted:Qty: 1 on 04/03/2021 by Irvin Canchola MD at OR [facility] Left: Eye BAUSCH & LOMB 01/03/2026 [id number] / [id number] / [id number] Lens Intraoc 18.5 - [id number] - [id number] Implanted:Qty: 1 on 04/10/2021 by Irvin Canchola MD at OR [facility] Right: Eye BAUSCH & LOMB 01/03/2026 [id number] / [id number] / [id number] documented as of this encounter Visit Diagnoses Diagnosis Complex tear of triangular fibrocartilage of left wrist, initial encounter- Primary Left scapholunate ligament tear, initial encounter History of colonic polyps Personal history of colonic polyps documented in this encounter Care Teams Lactation Nurse Relationship Specialty Start Date End Date Ferny Sr DO [address] [place] [address] PCP - General Internal Medicine 12/18/23 documented as of this encounter
--- OUTSIDE RECORDS SUMMARY | 2024-01-20 21:56 | External Medical Summary | Summary of Care ---
Author Name Unknown Organization [facility] Address [address] [place] [address] Phone [phone] Care Team Providers Care Log Marker Name Role Phone Ferny Sr DO Primary Care Provider [phone] Encounter Details Date Type Department Care Team (Late st Contact Info) Description 12/16/2023 Documentation [facility] Linsey Cho, [facility] Review Nurse Allergies Active Allergy Reactions Criticality Noted Date Comments Clarithromycin Other (Please comment) Low 1 "Burning mouth" sensation. documented as of this encounter (statuses as of 12/16/2023) Medications Medication Sig Dispensed Refills Start Date [...] 01/11/2020 Active Additional Information Patient taking differently:2 [place] Each NostrilHS, Indications: allergies, Reported on 08/13/2022 [...] by mouth daily. Active GNP Calcium 1200 0166-5917 MG-UNIT Oral Tablet Chewable Take 1 Tablet [...] pe 2 diabetes, HbA1C goal < 8% ([facility]) TEST 3 X DAILY DX E11.9 100 Strip 5 06/11/2022 Active ProAir HFA 108 (90 Base) MCG/ACT Inhalation Aerosol SolutionIndications: Acute cough,COPD, group A, by GOLD 2017 classification ([facility]) Inhale 2 Puffs by mouth in the morning and 2 Puffs at noon and 2 Puffs in the evening and 2 Puffs before bedtime. 8 g 09/13/2022 Active Empagliflozin 25 MG Oral Tablet (Jardiance)Indicatio ns:Type 2 diabetes mellitus with diabetic peripheral angiopathy without gangrene, without long-term current use of insulin ([facility]),Type 2 diabetes mellitus with peripheral neuropathy ([facility]),Type 2 DM with CKD stage 3 and hypertension ([facility]),Type 2 diabetes, HbA1C goal < 8% ([facility]) Take 1 Tablet by mouth in the morning. 100 Tablet 2 08/04/2023 Active Letrozole 2.5 MG Oral Tablet (Femara)Indications: Malignant neoplasm of right breast in female, estrogen receptor positive, unspecified site of breast ([facility]) Take 1 Tablet by mouth in the [...] ons:Type 2 diabetes, HbA1C goal < 8% ([facility]),Type 2 DM with CKD stage 3 and hypertension ([facility]) Inject 30 Units under the skin every [...] bedtime. 200 Tablet 3 10/28/2023 Active Pen [place] 32G X 4 MMIndications:Type 2 diabetes mellitus with peripheral neuropathy ([facility]) Use once daily with Lantus as directed [...] as of this encounter (statuses as of 12/16/2023) Active Problems Problem Noted Date Diagnosed Date Osteoporosis without current pathological fractu re 08/27/2023 [facility] current use of aromatase inhibitor Type 2 [...] and oxygen 06/08 Overview: with 4 LPM [facility] Last Assessment & Plan: Compliant with BiPAP ADVANCE DIRECTIVE INFORMATION 12/07/2004 Overview: Yes, Patient instructed to provide copy of advance directive for provider to review and to be scanned into Electronic Medical Record Trigeminal neuralgia Mixed rhinitis Irritable bowel syndrome documented as of this encounter (statuses as of 12/16/2023) Resolved Problems Problem Noted Date Diagnosed Date Resolved Date Diabetes mellitus with stage 3 chronic kidney disease 07/15/2022 07/15/2022 Diabetes mellitus 07/15/2022 09/10/2022 Hypertensive heart disease without CHF 01/04/2022 07/15/2022 Class 2 severe obesity with serious comorbidity and body mass index (BMI) of 39.0 to 39.9 in adult 01/04/2022 12/03/2023 Open-angle glaucoma 06/14/2021 10/16/19 22 Atherosclerosis of [place] co ronary artery without angina pectoris 03/26/2021 [...] as of this encounter (statuses as of 12/16/2023) Immunizations Name Administration Dates Next Due COVID-19 mRNA, LNP-s, No Pre serve, 2-Dose Series ([employer]) 05/14/2021,09/21/2020,08/31/2020 COVID-19, LNP-s, No Preserve , Jose-sucrose, Ages 12+ ([employer]) 12/11/2021 COVID-19, MRNA-LNP, 23-24, P F, 30 [...] of this encounter Progress Notes * [facility] Review Nurse - 12/16/2023 2:05 PM EDT Did patient attend session 7 of 10 of the small group balance program? No: Patient did not attend session 1 of 10 of the small group balance program. documented in this encounter Plan of Treatment Upcoming Encounters Date Type Department Care Team (Late st Contact Info) Description 12/26/2023 11:00 AM EDT Office Visit Cardiology, [facility] [address] [facility] [place] [address] [facility] [address] [address] 01/03/2024 10:00 AM EDT Imaging Radiology [facility] [facility] [address] [place] [address] 02/24/2024 11:00 AM EDT Laboratory Laboratory [facility] [place] [address] [place] [address] Trish Salgado [address] [facility] [place] [address] 02/24/2024 12:00 PM EDT Office Visit Hematology/Oncolog y [facility] [place] [address] [place] [phone] Michelle Ruffin CRNP [address] [place], [place] [address] [place] [address] 03/02/2024 2:30 PM EDT Hospital Encounter ENDO [facility], Endoscopy Room [facility] [address] [place] [phone] Landon Kline MD [address] [facility] [place] [address] 03/02/2024 2:30 PM EDT - 03/02/2024 3:00 PM EDT Surgery ENDO [facility], Endoscopy Room [facility] [address] [place] [phone] Landon Kline MD 132 [facility] [place] [address] COLONOSCOPY FLEXIBLE PROXIMAL DIAGNOSTIC 04/02/2024 10:30 AM EDT Office Visit Sleep Disorders Ctr [facility] [place] 132 [facility] [place] [phone] Mara [facility]ald CRNP [address] [facility] [address] 04/05/2024 10:40 AM EDT Office Visit Family Practice [address] [place] [address] [address] [place] [address] Ferny Sr, 293 [place] [address] 05/11/2024 11:15 AM EST Office Visit [facility]at[facility] 200 [facility] [place], [place] [address] Kingston Huertas MD 200 [facility] [place] [address] Scheduled Procedures Name Priority Associated Diagnoses Date/Ti [...] Screening 07/29/2024 07/29/2023 CKD HGB USE SMARTSET 58103 09/15/202409/15, 09/16/2023, 08/26/2023, Additional history exists CKD PHOS USE SMARTSET 77206 09/15/202409/04, 08/26/2023, 11/21/2022, Additional history exists O2 [...] 10/14/2014, 04/02/2011, 12/21/2002 Zoster Vaccines Completed 09/15/2019, 110 10/2018, 06/14/2009 Lung Cancer Screening Completed 05/16/2021 , 02/17/2020, 02/11/2019, Additional history exists RETIRED - COLONOSCOPY-ANNUAL AGES 18-100 Discontinued 09/04/2022, 02/13/2015, 08/19/2011, Additional history exists RETIRED - COLONOSCOPY-EVERY 5 YRS AGES 18-100 Discontinued 09/04/2022, 02/13/2015, 08/19/2011, Additional history exists Influenza Vaccine (FLU shot) Completed 03/18/2023, 03/13/2022, 03/26/2021, Additional history exists VITAMIN D LEVEL ONCE IN A LIFETIME-USE SMARTSET# 27935 Completed 08/26/2023, 07/15/2022, 03/13/2022, Additional history exists [...] this encounter Medical Devices Implanted Type Area Chief Of Staff Device Identifier Shelf Expiration Date Model / Serial / Lot Lens Intraoc 18.5 - [id number] - [id number] Implanted:Qty: 1 on 04/03/2021 by Irvin Canchola MD at OR [facility] Left: Eye BAUSCH & LOMB 01/03/2026 [id number] / [id number] / [id number] Lens Intraoc 18.5 - [id number] - [id number] Implanted:Qty: 1 on 04/10/2021 by Irvin Canchola MD at OR [facility] Right: Eye BAUSCH & LOMB 01/03/2026 [id number] / [id number] / [id number] documented as of this encounter Care Teams Log Marker Relationship Specialty Start Date End Date Ferny Sr DO [address] [facility] [place] [address] PCP - General Internal Medicine 08/31/18 documented as of this encounter
--- OUTSIDE RECORDS SUMMARY | 2024-01-20 21:56 | External Medical Summary | Summary of Care ---
Author Name Unknown Organization [facility] Address [address] [place] [address] Phone [phone] Care Team Providers Care Stock Preparation Operator Name Role Phone Ferny Sr DO Primary Care Provider [phone] Reason for Visit * Reason Onset Date Comments Appointment 01/02/2024 Encounter Details Date Type Department Care Team (Late st Contact Info) Description 01/02/2024 Telephone [address] [place] [address] Karin Bojorquez TECH Appointment Allergies Active Allergy Reactions Criticality Noted Date Comments Clarithromycin Other (Please comment) Low 1 "Burning mouth" sensation. documented as of this encounter (statuses as of 01/02/2024) Medications Medication Sig Dispensed Refills Start Date End Date Status Persimmon TechnologiesTOUCH ULTRA SYSTEM W/DEVICE KITIndications:DM type 2, goal [...] 01/11/2020 Active Additional Information Patient taking differently:2 [place] Each NostrilHS, Indications: allergies, Reported on 08/13/2022 [...] by mouth daily. Active GNP Calcium 1200 1338-1887 MG-UNIT Oral Tablet Chewable Take 1 Tablet [...] 2 diabetes, HbA1C goal < 8% ([facility]) TEST 3 X DAILY DX E11.9 100 Strip 5 06/11/2022 Active ProAir HFA 108 (90 Base) MCG/ACT Inhalation Aerosol SolutionIndications: Acute cough,COPD, group A, by GOLD 2017 classification ([facility]) Inhale 2 Puffs by mouth in the morning and 2 Puffs at noon and 2 Puffs in the evening and 2 Puffs before bedtime. 8 g 09/13/2022 Active Empagliflozin 25 MG Oral Tablet (Jardiance)Indicatio ns:Type 2 diabetes mellitus with diabetic peripheral angiopathy without gangrene, without long-term current use of insulin ([facility]),Type 2 diabetes mellitus with peripheral neuropathy ([facility]),Type 2 DM with CKD stage 3 and hypertension ([facility]),Type 2 diabetes, HbA1C goal < 8% ([facility]) Take 1 Tablet by mouth in the morning. 100 Tablet 2 08/04/2023 Active Letrozole 2.5 MG Oral Tablet (Femara)Indications: Malignant neoplasm of right breast in female, estrogen receptor positive, unspecified site of breast (HCC) Take 1 Tablet by mouth in the morning. 100 Tablet 08/04/2023 Active amLODIPine Besylate 2.5 MG Oral [...] by mouth in the morning. 100 Tablet 08/20/2023 Active Montelukast Sodium 10 MG Oral [...] 2 diabetes, HbA1C goal < 8% ([facility]),Type 2 DM with CKD stage 3 and hypertension ([facility]) Inject 30 Units under the skin every [...] bedtime. 200 Tablet 3 10/28/2023 Active Pen [place] 32G X 4 MMIndications:Type 2 diabetes mellitus with peripheral neuropathy ([facility]) Use once daily with Lantus as directed [...] as of this encounter (statuses as of 01/02/2024) Active Problems Problem Noted Date Diagnosed Date [...] and oxygen 06/08 Overview: with 4 LPM [facility] Last Assessment & Plan: Compliant with BiPAP ADVANCE DIRECTIVE INFORMATION 12/07/2004 Overview: Yes, Patient instructed to provide copy of advance directive for provider to review and to be scanned into Electronic Medical Record Trigeminal neuralgia Mixed rhinitis Irritable bowel syndrome documented as of this encounter (statuses as of 01/02/2024) Resolved Problems Problem Noted Date Diagnosed Date Resolved Date Diabetes mellitus with stage 3 chronic kidney disease 07/15/2022 07/15/2022 Diabetes mellitus 07/15/2022 09/10/2022 Hypertensive heart disease without CHF 01/04/2022 07/15/2022 Class 2 severe obesity with serious comorbidity and body mass index (BMI) of 39.0 to 39.9 in adult 01/04/2022 12/03/2023 Open-angle glaucoma 06/14/2021 10/16/19 Atherosclerosis of [place] co ronary artery without angina pectoris 03/26/2021 [...] as of this encounter (statuses as of 01/02/2024) Immunizations Name Administration Dates Next Due COVID-19 mRNA, LNP-s, No Pre serve, 2-Dose Series ([email or web address]) 05/14/2021,09/21/2020,08/31/2020 COVID-19, LNP-s, No Preserve , Jose-sucrose, [...] encounter Miscellaneous Notes * Telephone Encounter - Karin Bojorquez TECH - 01/02/2024 12:25 PM EDT Name: Rama Alvarez Do you have any of the following: Pacemaker, stents, heart valves, aneurysm clips? No Have you ever worked with metal or have you ever gotten metal in your eyes? No Have you had a colonoscopy in the last 30 days? No On dialysis? No Do you have any dermals or body piercing's? No or ? Do you wear an insulin pump or diabetic monitor? No No new tattoos BRYCE Sears documented in this encounter Plan of Treatment Upcoming Encounters Date Type Department Care Team (Latest Contact Info) Description 01/03/2024 10:00 AM EDT Imaging Radiology [address] [place] [address] 02/24/2024 11:00 AM EDT Laboratory Laboratory [facility] [address] [place] [phone] [facility] 200 [facility] [place] [address] 02/24/2024 12:00 PM EDT Office Visit Hematology/Oncolog y [facility] 200 [facility] [place] [phone] Michelle Ruffin CRNP [address] [place] [address] [place] [address] 03/02/2024 2:30 PM EDT Hospital Encounter ENDO [facility], Endoscopy Room [facility] [address] [place] [phone] Landon Kline MD [address] [place] [address] 03/02/2024 2:30 PM EDT - 03/02/2024 3:00 PM EDT Surgery ENDO [facility], Endoscopy Room [facility] [address] [facility] [place] [phone] Landon Kline MD [address] [place] [address] COLONOSCOPY FLEXIBLE PROXIMAL DIAGNOSTIC 04/02/2024 10:30 AM EDT Office Visit Sleep Disorders Ctr [facility]i [facility] 132 [facility] [place] [phone] Mara Archibald CRNP [facility] [address] 04/05/2024 10:40 AM EDT Office Visit Family Practice 65 [facility] [address] [place] [address] Ferny Sr DO 293 [place] [address] 05/11/2024 11:15 AM EST Office Visit Dermatology [facility] 200 [facility] [place] [address] Kingston Huertas MD 200 [place] [address] Scheduled Procedures Name Priority Associated Diagnoses Date/Ti [...] Screening 07/29/2024 07/29/2023 CKD HGB USE SMARTSET 40053 09/15/202409/15, 09/16/2023, 08/26/2023, Additional history exists CKD PHOS USE SMARTSET 71706 09/15/202409/04, 08/26/2023, 11/21/2022, Additional history exists O2 [...] D LEVEL ONCE IN A LIFETIME-USE SMARTSET# 92929 Completed 08/26/2023, 07/15/2022, 03/13/2022, Additional history exists [...] this encounter Medical Devices Implanted Type Area Children'S Attendant Device Identifier Shelf Expiration Date Model / Serial / Lot Lens Intraoc 18.5 - [id number] - [id number] Implanted:Qty: 1 on 04/03/2021 by Irvin Canchola MD at OR [facility] Left: Eye BAUSCH & LOMB 01/03/2026 [id number] / [id number] / [id number] Lens Intraoc 18.5 - [id number] - [id number] Implanted:Qty: 1 on 04/10/2021 by Irvin Canchola MD at OR [facility] Right: Eye BAUSCH & LOMB 01/03/2026 [id number] / [id number] / [id number] documented as of this encounter Care Teams Stock Preparation Operator Relationship Specialty Start Date End Date Ferny Sr DO 293 [place] [address] PCP - General Internal Medicine 12/18/23 documented as of this encounter
--- OUTSIDE RECORDS SUMMARY | 2024-01-20 21:57 | External Medical Summary | Summary of Care ---
Author Name Unknown Organization [facility] Address [address] [place] [address] Phone [phone] Care Team Providers Care University Lecturer Name Role Phone Ferny Sr DO Primary Care Provider [phone] Reason for Visit * Reason Onset Date Comments Patient Assistance Program 12/04/2023 Encounter Details Date Type Department Care Team (Late st Contact Info) Description 12/04/2023 Telephone Family Practice [address] [place] [address] [place] [address] Betty Topete, [facility]ly [facility] [address] [place], [place] [phone] Patient Assistance Program Allergies Active Allergy Reactions Criticality Noted Date Comments Clarithromycin Other (Please comment) Low 1 "Burning mouth" sensation. documented as of this encounter (statuses as of 12/05/2023) Medications Medication Sig Dispensed Refills Start Date End Date Status OpenbravoUCH ULTRA SYSTEM W/DEVICE KITIndications:DM type 2, goal [...] 01/11/2020 Active Additional Information Patient taking differently:2 [place] Each NostrilHS, Indications: allergies, Reported on 08/13/2022 [...] by mouth daily. Active GNP Calcium 1200 4823-4367 MG-UNIT Oral Tablet Chewable Take 1 Tablet [...] 2 diabetes, HbA1C goal < 8% ([facility]) TEST 3 X DAILY DX E11.9 100 Strip 5 06/11/2022 Active ProAir HFA 108 (90 Base) MCG/ACT Inhalation Aerosol SolutionIndications: Acute cough,COPD, group A, by GOLD 2017 classification ([facility]) Inhale 2 Puffs by mouth in the morning and 2 Puffs at noon and 2 Puffs in the evening and 2 Puffs before bedtime. 8 g 09/13/2022 Active Furosemide 40 MG Oral Tablet (Lasix) take 1 tablet by mouth twice a day 180 Tablet 2 05/28/2023 Active Empagliflozin 25 MG Oral Tablet (Jardiance)Indicatio ns:Type 2 diabetes mellitus with diabetic peripheral angiopathy without gangrene, without long-term current use of insulin (HCC),Type 2 diabetes mellitus with peripheral neuropathy (HCC),Type [...] with CKD stage 3 and hypertension ([facility]) Inject 1 mg under the skin once [...] less than 70,PAD (peripheral artery disease) ([facility]) Take 1 Tablet by mouth in the morning. 100 Tablet 3 09/11/2023 Active Lisinopril 40 MG Oral TabletIndications:HT N, goal below 130/80 Take 1 Tablet by mouth in the morning. 100 Tablet 3 09/11/2023 Active Insulin Glargine Solostar 100 UNIT/ML Subcutaneous Solution Pen-injectorIndicati ons:Type 2 diabetes, HbA1C goal < 8% ([facility]),Type 2 DM with CKD stage 3 and hypertension ([facility]) Inject 30 Units under the skin [...] bedtime. 200 Tablet 3 10/28/2023 Active Pen [place] 32G X 4 MMIndications:Type 2 diabetes mellitus with peripheral neuropathy ([facility]) Use once daily with Lantus as [...] for Pain, Severe. 90 Tablet 11/25/2023 Active documented as of this encounter (statuses as of 12/05/2023) Active Problems Problem Noted Date Diagnosed Date Osteoporosis without current pathological fractu re 08/27/2023 termite control representative current use of aromatase inhibitor Type 2 [...] and oxygen 06/08 Overview: with 4 LPM [facility] Last Assessment & Plan: Compliant with BiPAP ADVANCE DIRECTIVE INFORMATION 12/07/2004 Overview: Yes, Patient instructed to provide copy of advance directive for provider to review and to be scanned into Electronic Medical Record Trigeminal neuralgia Mixed rhinitis Irritable bowel syndrome documented as of this encounter (statuses as of 12/05/2023) Resolved Problems Problem Noted Date Diagnosed Date Resolved Date Diabetes mellitus with stage 3 chronic kidney disease 07/15/2022 07/15/2022 Diabetes mellitus 07/15/2022 09/10/2022 Hypertensive heart disease without CHF 01/04/2022 07/15/2022 Class 2 severe obesity with serious comorbidity and body mass index (BMI) of 39.0 to 39.9 in adult 01/04/2022 12/03/2023 Open-angle glaucoma 06/14/2021 10/16/19 Atherosclerosis of [place] co ronary artery without angina pectoris 03/26/2021 [...] as of this encounter (statuses as of 12/05/2023) Immunizations Name Administration Dates Next Due COVID-19 mRNA, LNP-s, No Pre serve, 2-Dose Series ([employer]) 05/14/2021,09/21/2020,08/31/2020 COVID-19, LNP-s, No Preserve , Jose-sucrose, Ages 12+ (Pfizer) 12/11/2021 COVID-19, MRNA-LNP, 23-24, P F, 30 MCG/0.3 mL, 12 YRS AND ABOVE, IM ([facility]) 04/29/2023 Covid-19, Mrna, Lnp-s, Pf, B ivalent, [...] encounter Miscellaneous Notes * Telephone Encounter - Betty Topete RP - 12/05/2023 8:55 AM EDT Patient now covered by [employer] allison for Jardiance. Provided information to mail order and they rebilled her card for November. Now 0 copay. Betty Cui, Pharm D, BCACP Clinical Pharmacist [address] [facility] 12/05/2023, 9:19 AM Ph. [phone] * Telephone Encounter - Betty Topete RPh - 12/04/2023 4:29 PM EDT Patient is already enrolled in PAP with [employer] through the lipid program. She recently identified that her Jardiance is in the donut hole and we attempted to have her apply for the cardiomyopathygrant, but it said patient was already registered so it wouldn't let us progress. Do you know if it is possible for patient to be registered with two separate grants with [employer](lipid + cardiomyopathy). If so, could you facilitate getting her registered with [employer] for the Jardiance? Please let me know if you need anything from me! Thanks, Betty documented in this encounter Plan of Treatment Upcoming Encounters Date Type Department Care Team (Late st Contact Info) Description 12/05/2023 11:00 AM EDT Office Visit Family [facility] 65 [facility] 293 [place] [address] [place], Health Bench Worker Binding [facility] Prac [address] [place] [address] 12/08/2023 1:15 PM EDT Imaging Radiology [facility] 132 [facility] [place] [address] 12/09/2023 11:00 AM EDT Office Visit Family [facility] 65 [facility] [address] [facility] Bench Worker Binding [facility] [address] [address] 12/26/2023 11:00 AM EDT Office Visit Cardiology, [facility] 132 [facility] [place] [address] [facility] Clinic Card[facility] 132 [facility] [place] [address] 02/24/2024 11:00 AM EDT Laboratory Laboratory [facility] [address] [place] [phone] Trish Salgado [address] [place] [address] 02/24/2024 12:00 PM EDT Office Visit Hematology[facility]Oncolog [facility] [place] [address] [place] [phone] Michelle Ruffin CRNP [address] [place] [address] 03/02/2024 2:30 PM EDT Hospital Encounter ENDO [facility], Endoscopy Room [facility] [address] [place] [phone] Landon Kline MD [address] [place] [address] 03/02/2024 2:30 PM EDT - 03/02/2024 3:00 PM EDT Surgery ENDO [facility], Endoscopy Room [facility] [address] [place] [phone] Landon Kline MD [address] [place] [address] COLONOSCOPY FLEXIBLE PROXIMAL DIAGNOSTIC 04/02/2024 10:30 AM EDT Office Visit Sleep Disorders Ctr Jimi [place] 132 [facility] [place] [phone] Mara Archibald CRNP 132 [facility] [address] 04/05/2024 10:40 AM EDT Office Visit Family Practice [address] [place] [address] 293 [place] [address] Ferny Sr, 293 [place] [address] 05/11/2024 11:15 AM EST Office Visit Dermatology [facility] Naomi [place] 200 [facility] [place], [place] [address] Kingston Huertas MD 200 [facility] [place], [place] [address] Scheduled Procedures Name Priority Associated Diagnoses Date/Ti [...] Screening 07/29/2024 07/29/2023 CKD HGB USE SMARTSET 08661 09/15/202409/15, 09/16/2023, 08/26/2023, Additional history exists CKD PHOS USE SMARTSET 79210 09/15/202409/04, 08/26/2023, 11/21/2022, Additional history exists O2 [...] D LEVEL ONCE IN A LIFETIME-USE SMARTSET# 91107 Completed 08/26/2023, 07/15/2022, 03/13/2022, Additional history exists [...] this encounter Medical Devices Implanted Type Area Youth Development Professional Device Identifier Shelf Expiration Date Model / Serial / Lot Lens Intraoc 18.5 - [id number] - [id number] Implanted:Qty: 1 on 04/03/2021 by Irvin Canchola MD at OR [facility] Left: Eye BAUSCH & LOMB 01/03/2026 [id number] / [id number] / [id number] Lens Intraoc 18.5 - [id number] - [id number] Implanted:Qty: 1 on 04/10/2021 by Irvin Canchola MD at OR [facility] Right: Eye BAUSCH & LOMB 01/03/2026 [id number] / [id number] / [id number] documented as of this encounter Visit Diagnoses Diagnosis Type 2 diabetes, HbA1C goal < 8% (HCC)- Primary Type II or unspecified type diabetes mellitus without mention of complication, not stated as uncontrolled History of colonic polyps Personal history of colonic polyps documented in this encounter Care Teams University Lecturer Relationship Specialty Start Date End Date Ferny Sr DO [address] [place] [address] PCP - General Internal Medicine 08/31/18 documented as of this encounter
--- OUTSIDE RECORDS SUMMARY | 2024-01-20 21:57 | External Medical Summary | Summary of Care ---
Author Name Unknown Organization [facility] Address [address] [place] [address] Phone [phone] Care Team Providers Care Block Splitter Operator Name Role Phone Ferny Sr DO Primary Care Provider Encounter Details Date Type Department Care Team (Late st Contact Info) Description 12/05/2023 Documentation [facility] Linsey Cho, Health Employment Program Representative Allergies Active Allergy Reactions Criticality Noted Date [...] 01/11/2020 Active Additional Information Patient taking differently:2 [place] Each NostrilHS, Indications: allergies, Reported on 08/13/2022 [...] by mouth daily. Active GNP Calcium 1200 1703-6003 MG-UNIT Oral Tablet Chewable Take 1 Tablet [...] 2 diabetes, HbA1C goal < 8% ([facility]) TEST 3 X DAILY DX E11.9 100 Strip 5 06/11/2022 Active ProAir HFA 108 (90 Base) MCG/ACT Inhalation Aerosol SolutionIndications: Acute cough,COPD, group A, by GOLD 2017 classification ([facility]) Inhale 2 Puffs by mouth in [...] without long-term current use of insulin ([facility]),Type 2 diabetes mellitus with peripheral neuropathy ([facility]),Type 2 DM with CKD stage 3 and hypertension ([facility]),Type 2 diabetes, HbA1C goal < 8% ([facility]) Take 1 Tablet by mouth in [...] 2 diabetes, HbA1C goal < 8% ([facility]),Type 2 DM with CKD stage 3 and hypertension ([facility]) Inject 30 Units under the skin [...] bedtime. 200 Tablet 3 10/28/2023 Active Pen [place] 32G X 4 MMIndications:Type 2 diabetes mellitus with peripheral neuropathy ([facility]) Use once daily with Lantus as [...] and oxygen 06/08 Overview: with 4 LPM [facility] Last Assessment & Plan: Compliant with [...] 12/03/2023 Open-angle glaucoma 06/14/2021 10/16/19 Atherosclerosis of [place] co ronary artery without angina pectoris 03/26/2021 [...] mRNA, LNP-s, No Pre serve, 2-Dose Series ([employer]) 05/14/2021,09/21/2020,08/31/2020 COVID-19, LNP-s, No Preserve , Jose-sucrose, Ages 12+ ([employer]) 12/11/2021 COVID-19, MRNA-LNP, 23-24, P F, 30 [...] encounter Progress Notes * Linsey Cho Health Employment Program Representative - 12/05/2023 2:14 PM EDT Did patient attend session 5 of 10 of the small group balance program? Yes: Patient attended session 5 of 10 of the small group balance program. Session 5 focused on a review of fall prevention in the home, lower extremity strengthening and hand eye coordination drills from the previous sessions. Pr acticed exercises as a group. documented in this encounter Plan of Treatment Upcoming Encounters Date Type Department Care Team (Late st Contact Info) Description 12/08/2023 1:15 PM EDT Imaging Radiology [facility] 132 [facility] [place] [address] 12/09/2023 11:00 AM EDT Office Visit Family Practice [address] [place] [address] 293 [place] [address] [place], Health Employment Program Representative [facility] Prac [address] [place], [place] [address] [address] 12/26/2023 11:00 AM EDT Office Visit Cardiology, [facility] 132 [facility] [place] [address] [facility] Cardiology [facility] 132 [facility] [place] [address] 02/24/2024 11:00 AM EDT Laboratory Laboratory [facility] [address] [facility] [place] [address] Trish Sal[address] [facility] [place] [address] 02/24/2024 12:00 PM EDT Office Visit Hematology/Oncolog y [address] [place] [address] [place] [phone] Michelle Ruffin CRNP 400 [facility] [place] [address] 03/02/2024 2:30 PM EDT Hospital Encounter [facility] [place] [phone] Landon Kline MD [address] [place] [address] 03/02/2024 2:30 PM EDT - 03/02/2024 3:00 PM EDT Surgery ENDO [facility], Endoscopy Room [facility] [place] [phone] Landon Kline MD [address] [place] [address] COLONOSCOPY FLEXIBLE PROXIMAL DIAGNOSTIC 04/02/2024 10:30 AM EDT Office Visit [facility] [address] [place] [phone] Mara Archibald CRNP [address] [place] [address] 04/05/2024 10:40 AM EDT Office Visit Family Practice [address] [place] [address] 293 [place] [address] Ferny Sr DO 293 [place] [address] 05/11/2024 11:15 AM EST Office Visit Dermatology [facility] [address] [place] [address] Kingston Huertas MD [address] [place] [address] [address] Scheduled Procedures Name Priority Associated Diagnoses Date/Ti [...] Screening 07/29/2024 07/29/2023 CKD HGB USE SMARTSET 36126 09/15/202409/15, 09/16/2023, 08/26/2023, Additional history exists CKD PHOS USE SMARTSET 88957 09/15/202409/04, 08/26/2023, 11/21/2022, Additional history exists O2 ASSESSMENT COMPLETED IN PAST YEAR FOR COPD 10/27/2024 10/28/2023 Albumin/Creatinine Ratio 12/02/2024 024, 07/15/2022, 08/15/2021, Additional history exists Colonoscopy 12/02/2024 12/03/2023, 07/2022, 02/13/2015, Additional history exists Diabetic Foot Exam 12/02/2024 12/03/2023, 0 12/03/2023, 11/13/2022, Additional history exists DXA Scan 08/18/2025 08/18/2023, 03/2022, 10/19/2012, Additional history exists DTaP,Tdap,and Td [...] D LEVEL ONCE IN A LIFETIME-USE SMARTSET# 82311 Completed 08/26/2023, 07/15/2022, 03/13/2022, Additional history exists [...] this encounter Medical Devices Implanted Type Area Director Funds Development Device Identifier Shelf Expiration Date Model / Serial / Lot Lens Intraoc 18.5 - [id number] - [id number] Implanted:Qty: 1 on 04/03/2021 by Irvin Canchola MD at OR [facility] Left: Eye BAUSCH & LOMB 01/03/2026 [id number] / [id number] / [id number] Lens Intraoc 18.5 - [id number] - [id number] Implanted:Qty: 1 on 04/10/2021 by Irvin Canchola MD at OR [facility] Right: Eye BAUSCH & LOMB 01/03/2026 [id number] / [id number] / [id number] documented as of this encounter Care Teams Block Splitter Operator Relationship Specialty Start Date End Date Ferny Sr DO [address] [place] [address] PCP - General Internal Medicine 08/31/18 documented as of this encounter
--- OUTSIDE RECORDS SUMMARY | 2024-01-20 21:57 | External Medical Summary | Summary of Care ---
Author Name Unknown Organization [facility] Address [address] [place] [address] Phone [phone] Care Team Providers Care Blanket Folder Name Role Phone Disha Sr DO Primary Care Provider Reason for Referral * Precert (Within 10 days (routine)) - Pending Review Specialty Diagnoses / Procedures Referred By Nadir dimas Referred To Contact Radiology Diagnoses Acquired deformity of left wrist Procedures MRI WRIST LEFT WO CONTRAST Disha Sr DO [address] [place] [address] Referral ID Status Reason Start Date Expiration Date V isits Requested Visits Authorized [id number] Pending Review 12/09/2023 999 999 Reason for Visit * Reason Onset Date Comments Test Results 12/04/202312/07 Encounter Details Date Type Department Care Team (Late st Contact Info) Description 12/04/2023 Telephone Family Practice [address] [place] [address] [place] [address] Disha Sr DO [address] [place] [address] Test Results (12/07) Allergies Active Allergy Reactions Criticality Noted Date Comments Clarithromycin Other (Please comment) Low 1 "Burning mouth" sensation. documented as of this encounter (statuses as of 12/09/2023) Medications Medication Sig Dispensed Refills Start Date End Date Status DosYogures ULTRA SYSTEM W/DEVICE KITIndications:DM type 2, goal A1c below 7 test once daily; dx 250.00 1 Kit 0 10/14/2012 Active VITAMIN C 500 MG PO TABS Take 1 Tablet by mouth daily at noon. 11/04/2013 Active eTecTOUCH ULTRASOFT LANCETS MISCIndications:DM type 2, goal A1c below 7 test once daily; dx 250.00 1 Box 5 11/12/2013 Active fluticasone (FLONASE) 50 MCG/ACT nasal spray Administer 2 Sprays into each nostril 2 times a day. 16 g 5 01/11/2020 Active Additional Information Patient taking differently:2 [place] Each NostrilHS, Indications: allergies, Reported on 08/13/2022 [...] by mouth daily. Active GNP Calcium 1200 0606-7805 MG-UNIT Oral Tablet Chewable Take 1 Tablet [...] stage 3 and hypertension ([facility]) Take 1 Tablet by mouth in the morning. 100 Tablet 3 08/13/2023 Active DULoxetine HCl 60 MG Oral Capsule Delayed Release Particles (Cymbalta) Take 1 Capsule by mouth at bedtime. 100 Capsule 2 08/20/2023 Active Potassium Chloride ER 10 MEQ Oral Tablet Extended ReleaseIndications:C hronic diastolic congestive heart failure ([facility]) Take 1 Tablet by mouth in the morning. 100 Tablet 2 08/20/2023 Active Montelukast Sodium 10 MG Oral Tablet (Singulair)Indicatio ns:Allergic rhinitis Take 1 Tablet by mouth every evening. 100 Tablet 3 08/25/2023 Active Ozempic (1 MG/DOSE) 4 MG/3ML Subcutaneous Solution Pen-injector (Semaglutide (1 MG/DOSE))Indications :Type 2 DM with CKD stage 3 and hypertension ([facility]) Inject 1 mg under the skin once [...] bedtime. 200 Tablet 3 10/28/2023 Active Pen [place] 32G X 4 MMIndications:Type 2 diabetes mellitus [...] as of this encounter (statuses as of 12/09/2023) Active Problems Problem Noted Date Diagnosed Date Osteoporosis without current pathological fractu re 08/27/2023 [facility] current use of aromatase inhibitor Type 2 [...] SKIN MELANOMA - LM R neck 08/1009 2010 HTN, goal below 150/90 05/24/2009 Overview: Modified [...] and oxygen 06/08 Overview: with 4 LPM [facility] Last Assessment & Plan: Compliant with BiPAP ADVANCE DIRECTIVE INFORMATION 12/07/2004 Overview: Yes, Patient instructed to provide copy of advance directive for provider to review and to be scanned into Electronic Medical Record Trigeminal neuralgia Mixed rhinitis Irritable bowel syndrome documented as of this encounter (statuses as of 12/09/2023) Resolved Problems Problem Noted Date Diagnosed Date Resolved Date Diabetes mellitus with stage 3 chronic kidney disease 07/15/2022 07/15/2022 Diabetes mellitus 07/15/2022 09/10/2022 Hypertensive heart disease without CHF 01/04/2022 07/15/2022 Class 2 severe obesity with serious comorbidity and body mass index (BMI) of 39.0 to 39.9 in adult 01/04/2022 12/03/2023 Open-angle glaucoma 06/14/2021 10/16/19 Atherosclerosis of [place] ronary artery without angina pectoris 03/26/2021 [...] as of this encounter (statuses as of 12/09/2023) Immunizations Name Administration Dates Next Due COVID-19 mRNA, LNP-s, No Pre serve, 2-Dose Series (Panjo) 05/14/2021,09/21/2020,08/31/2020 COVID-19, LNP-s, No Preserve , Jose-sucrose, Ages 12+ (Pfizer) 12/11/2021 COVID-19, MRNA-LNP, 23-24, P F, 30 MCG/0.3 mL, 12 YRS AND ABOVE, IM ([facility]) 04/29/2023 Covid-19, Mrna, Lnp-s, Pf, B ivalent, 30 Mcg, IM, 12 yrs and above (Panjo) 05/14/2022 Pneumococcal Conjugate Vacc, 13 Valent (Prevnar) 10/14/2014 Pneumococcal Polysaccharide PPV23 (Pneumovax) 04/02/2011,12/21/2002 RSV Vac., Bivalent, Perfusio n F, Pf,0.5 Ml (Abrysvo) 05/02/2023 Season Influenza, Quad, PF, Adjuvanted, 65+ Yrs, IM (FLUAD) 04/26/2020 Seasonal Influenza, PF, 6 M & above, IM , (FluLaval or Fluzone) 04/13/2018,04/03/2017 Seasonal Influenza, Quadriva lent Hd (Fluzone Hd) 03/18/2023,03/13/2022,03/26/2021 Seasonal Influenza, Quadriva lent, No Preserve, IM 05/14/2016 Seasonal Influenza, Split, I IV3, With Preserve, Inj 03/28/2015,03/15/2014,04/05/2013,04/07,04/02/2011,05/01/2010,05/02/2009 ,04/06/2008,04/08/2007,04/17/2006,04/06,04/17/2004,04/20/2003 Seasonal Influenza, Trivalen t, Adjuvanted, 65+ yrs 04/16/2019 TD - Tetanus/Diptheria (ADULT) 09/16/2017,1995 TDAP, Age 7 and older, IM (Adacel) [...] as of this encounter Miscellaneous Notes * Addendum Note - Disha Sr DO - 12/09/2023 10:15 AM EDTAddended by: DISHA SR on: 12/09/2023 10:15 AM Modules accepted: Orders * Telephone Encounter - Disha Sr DO - 12/09/2023 10:10 AM EDT MRI order signed Schedule MRI of left wrist * Telephone Encounter - Sasha Balderas LPN - 12/09/2023 10:01 AM EDT Patient is aware and will comply. Does have bilateral knee replacements and bilateral shoulder replacements. Will forward to Betty and Dr Sr. Thank you * Telephone Encounter - Disha Sr DO - 12/09/2023 9:50 AM EDT Any metal injuries, or implants ? The US or the left upper arm lesion is OK. Probable fat necrosis Still needs MRI right wrist. * Telephone Encounter - Sasha Balderas LPN - 12/09/2023 9:47 AM EDT 2 encounters for this patient/. * Telephone Encounter - Disha Sr DO - 12/09/2023 9:40 AM EDT Does patient have any implants or metal injuries ? * Telephone Encounter - Sasha Balderas LPN - 12/08/2023 3:19 PM EDT Patient is aware and will comply. Please review and sign order. Betty, please address labs. Thank you * Telephone Encounter - Sasha Balderas LPN - 12/08/2023 2:04 PM EDT Called, left message for patient to return call. Thank you * Telephone Encounter - Sasha Balderas LPN - 12/08/2023 2:03 PM EDT ----- Message from Disha Sr DO sent at 12/07/2023 11:53 AM EDT ----- O fracture on x-rays of right wrist. Increase of ulnar variance. Radiology recommends MRI of left wrist. * Telephone Encounter - Ann-Marie Claudio LPN - 12/04/2023 2:50 PM EDT ----- Message from Disha Sr DO sent at 12/04/2023 8:04 AM EDT ----- Hgba1c has improved All other labs are good. Consider increasing Ozempic and decreasing Lantus documented in this encounter Plan of Treatment Upcoming Encounters Date Type Department Care Team (Late st Contact Info) Description 12/09/2023 11:00 AM EDT Office Visit Family Practice 65 [facility] 293 [facility], [place] [address] [place], [employer] Account Representative [facility] Prac [address] [place] [address], [place] [address] 12/26/2023 11:00 AM EDT Office Visit CardiologyKristoferbaltazar [facility] 132 [facility] [place] [address] [facility] Cardiology [facility] 132 [facility] [place] [address] 02/24/2024 11:00 AM EDT Laboratory Laboratory Yvette [place] [address] [place] [phone] Trish Salgado [address] [place] [address] 02/24/2024 12:00 PM EDT Office Visit Hematology/Oncolog y [facility] [address] [place], [place] [address] Michelle Ruffin CRNP [address] [place] [address] 03/02/2024 2:30 PM EDT Hospital Encounter ENDO [facility], Endoscopy Room [facility] [address] [place] [phone] Landon Kline MD [address] [place] [address] 03/02/2024 2:30 PM EDT - 03/02/2024 3:00 PM EDT Surgery ENDO [facility], Endoscopy Room [facility] [address] [place] [phone] Landon Kline MD [address] [place] [address] COLONOSCOPY FLEXIBLE PROXIMAL DIAGNOSTIC 04/02/2024 10:30 AM EDT [facility] [place] 132 [facility] [place] [phone] Mara Archibald CRNP [facility] [place] [address] 04/05/2024 10:40 AM EDT Office Visit Family Practice [address] [place] [address] 293 [facility] [place] [address] Disha Sr, 293 [place] [address] 05/11/2024 11:15 AM EST Office Visit Dermatology [facility] [address] [place], [place] [address] Kingston Huertas MD 200 [facility] [place] [address] Scheduled Orders Name Type Priority Associated Diagnoses Orde r Schedule MRI WRIST LEFT WO CONTRAST Medical Imaging Routine Acquired deformity of left wrist Expected: 12/09/2023, Expires: 01/07/2025 Scheduled Procedures Name Priority Associated Diagnoses Date/Ti [...] Screening 07/29/2024 07/29/2023 CKD HGB USE SMARTSET 75225 09/15/202409/15, 09/16/2023, 08/26/2023, Additional history exists CKD PHOS USE SMARTSET 18838 09/15/202409/04, 08/26/2023, 11/21/2022, Additional history exists O2 ASSESSMENT COMPLETED IN PAST YEAR FOR COPD 10/27/2024 10/28/2023 Albumin/Creatinine Ratio 12/02/2024 024, 07/15/2022, 08/15/2021, Additional history exists Colonoscopy 12/02/2024 12/03/2023, 03/07/2022, 02/13/2015, Additional history exists Diabetic Foot Exam 12/02/2024 12/03/2023, 0 12/03/2023, 11/13/2022, Additional history exists DXA Scan 08/18/2025 08/18/2023, 02/0 03/2022, 10/19/2012, Additional history exists DTaP,Tdap,and Td [...] D LEVEL ONCE IN A LIFETIME-USE SMARTSET# 64820 Completed 08/26/2023, 07/15/2022, 03/13/2022, Additional history exists [...] this encounter Medical Devices Implanted Type Area Cutting Pressman Device Identifier Shelf Expiration Date Model / Serial / Lot Lens Intraoc 18.5 - [id number] - [id number] Implanted:Qty: 1 on 04/03/2021 by Irvin Canchola MD at OR [facility] Left: Eye BAUSCH & LOMB 01/03/2026 [id number] / [id number] / [id number] Lens Intraoc 18.5 - [id number] - [id number] Implanted:Qty: 1 on 04/10/2021 by Irvin Canchola MD at OR [facility] Right: Eye BAUSCH & LOMB 01/03/2026 [id number] / [id number] / [id number] documented as of this encounter Visit Diagnoses Diagnosis Acquired deformity of left wrist- Primary History of colonic polyps Personal history of colonic polyps documented in this encounter Care Teams Blanket Folder Relationship Specialty Start Date End Date Disha Sr DO [address] [place] [address] PCP - General Internal Medicine 08/31/18 documented as of this encounter
--- OUTSIDE RECORDS SUMMARY | 2024-01-20 21:57 | External Medical Summary | Summary of Care ---
Author Name Unknown Organization [facility] Address [address] [place] [address] Phone [phone] Care Team Providers Care Certified Ophthalmic Medical Technician Name Role Phone Ferny Sr DO Primary Care Provider [phone] Reason for Visit * Reason Onset Date Comments Test Results 12/09/202312/08 Encounter Details Date Type Department Care Team (Late st Contact Info) Description 12/09/2023 Telephone Family Practice 65 [facility] 293 [place] [address] Ferny Sr DO [address] [place] [address] Test Results (12/08) Allergies Active Allergy Reactions Criticality Noted Date Comments Clarithromycin Other (Please comment) Low 1 "Burning mouth" sensation. documented as of this encounter (statuses as of 12/09/2023) Medications Medication Sig Dispensed Refills Start Date End Date Status Mesh SystemsUCH ULTRA SYSTEM W/DEVICE KITIndications:DM type 2, goal [...] 01/11/2020 Active Additional Information Patient taking differently:2 [place] Each NostrilHS, Indications: allergies, Reported on 08/13/2022 [...] by mouth daily. Active GNP Calcium 1200 9567-5323 MG-UNIT Oral Tablet Chewable Take 1 Tablet [...] diabetes, HbA1C goal < 8% ([facility]) TEST 3 X DAILY DX E11.9 100 Strip 5 06/11/2022 Active ProAir HFA 108 (90 Base) MCG/ACT Inhalation Aerosol SolutionIndications: Acute cough,COPD, group A, by GOLD 2017 classification ([facility]) Inhale 2 Puffs by mouth [...] CKD stage 3 and hypertension ([facility]) Inject 1 mg under the [...] LDL less than 70,PAD (peripheral artery disease) ([facility]) Take 1 Tablet by mouth in the morning. 100 Tablet 3 09/11/2023 Active Lisinopril 40 MG Oral TabletIndications:HT N, goal below 130/80 Take 1 Tablet by mouth in the morning. 100 Tablet 3 09/11/2023 Active Insulin Glargine Solostar 100 UNIT/ML Subcutaneous Solution Pen-injectorIndicati ons:Type 2 diabetes, HbA1C goal < 8% ([facility]),Type 2 DM with CKD stage 3 and hypertension ([facility]) Inject 30 Units under the [...] bedtime. 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 Type [...] and oxygen 06/08 Overview: with 4 LPM [facility] Last Assessment & Plan: Compliant [...] 12/03/2023 Open-angle glaucoma 06/14/2021 10/16/19 Atherosclerosis of [place] co ronary artery without angina pectoris 03/26/2021 [...] mRNA, LNP-s, No Pre serve, 2-Dose Series (nodila) 05/14/2021,09/21/2020,08/31/2020 COVID-19, LNP-s, No Preserve , Jose-sucrose, Ages 12+ (Pfizer) 12/11/2021 COVID-19, MRNA-LNP, 23-24, P F, 30 MCG/0.3 mL, 12 YRS AND ABOVE, IM ([facility]) 04/29/2023 Covid-19, Mrna, Lnp-s, Pf, B ivalent, [...] Miscellaneous Notes * Telephone Encounter - Ferny Sr DO - 12/09/2023 10:06 AM EDT Noted. * Telephone Encounter - Sasha Balderas LPN - 12/09/2023 10:03 AM EDT Is aware of below, did states that the pain is there but not that bad, she stated maybe even from the wrist. Thank you * Telephone Encounter - Monse Butler OSA - 12/09/2023 9:58 AM EDT Returning your call * Telephone Encounter - Sasha Balderas LPN - 12/09/2023 9:47 AM EDT 2 encounters for this patient. * Telephone Encounter - Sasha Balderas LPN - 12/09/2023 9:45 AM EDT Called, left message for patient to return call. Thank you * Telephone Encounter - Sasha Balderas LPN - 12/09/2023 9:41 AM EDT ----- Message from Ferny Sr DO sent at 12/09/2023 9:29 AM EDT ----- Arm lesion is an area of fat necrosis. No suspicious mass present. See if arm pain has improved. documented in this encounter Plan of Treatment Upcoming Encounters Date Type Department Care Team (Late st Contact Info) Description 12/09/2023 11:00 AM EDT Office Visit Family Practice 65 [facility] 293 [place] [phone] [facility] Monorail Car Operator [facility] Prac [address] [place] [address] 12/26/2023 11:00 AM EDT Office Visit Cardiology [facility] 132 [facility] [address] [facility] Clinic Cardiology [facility] 132 [facility] [place] [address] 02/24/2024 11:00 AM EDT Laboratory Laboratory [facility] [place] [address] [place] [phone] Trish Salgado [address] [facility] [place] [address] 02/24/2024 12:00 PM EDT Office Visit Hematology/Oncolog y Y[facility] [place] [address] [place] [phone] Michelle Ruffin CRNP [address] [place] [address] 03/02/2024 2:30 PM EDT Hospital Encounter ENDO [facility], Endoscopy Room [facility] [address] [place], [place] [phone] Landon Kline MD [address] [place] [address] 03/02/2024 2:30 PM EDT - 03/02/2024 3:00 PM EDT Surgery ENDO [facility], Endoscopy Room [facility] [address] [place] [phone] Landon Kline MD [address] [place] [address] COLONOSCOPY FLEXIBLE PROXIMAL DIAGNOSTIC 04/02/2024 10:30 AM EDT Office [facility] 132 [facility] [place] [phone] Mara Archibald CRNP [facility] [address] 04/05/2024 10:40 AM EDT Office Visit Family Practice [address] [place] [address] 293 [facility] [address] Ferny Sr, 293 [place] [address] 05/11/2024 11:15 AM EST Office Visit Dermatology [facility] 200 [facility] [place], [place] [address] Kingston Huertas MD 200 [facility] [place] [address] Scheduled Procedures Name Priority Associated Diagnoses Date/Ti [...] Screening 07/29/2024 07/29/2023 CKD HGB USE SMARTSET 52063 09/15/202409/15, 09/16/2023, 08/26/2023, Additional history exists CKD PHOS USE SMARTSET 03904 09/15/202409/04, 08/26/2023, 11/21/2022, Additional history exists O2 [...] 10/14/2014, 04/02/2011, 12/21/2002 Zoster Vaccines Completed 09/15/2019, 11/0 10/2018, 06/14/2009 Lung Cancer Screening Completed 05/16/2021 , 02/17/2020, 02/11/2019, Additional history exists RETIRED - COLONOSCOPY-ANNUAL AGES 18-100 Discontinued 09/04/2022, 02/13/2015, 08/19/2011, Additional history exists RETIRED - COLONOSCOPY-EVERY 5 YRS AGES 18-100 Discontinued 09/04/2022, 02/13/2015, 08/19/2011, Additional history exists Influenza Vaccine (FLU shot) Completed 03/18/2023, 03/13/2022, 03/26/2021, Additional history exists VITAMIN D LEVEL ONCE IN A LIFETIME-USE SMARTSET# 52179 Completed 08/26/2023, 07/15/2022, 03/13/2022, Additional history exists [...] this encounter Medical Devices Implanted Type Area Insurance Marketing Rep Device Identifier Shelf Expiration Date Model / Serial / Lot Lens Intraoc 18.5 - [id number] - [id number] Implanted:Qty: 1 on 04/03/2021 by Irvin Canchola MD at OR [facility] Left: Eye BAUSCH & LOMB 01/03/2026 [id number] / [id number] / [id number] Lens Intraoc 18.5 - [id number] - [id number] Implanted:Qty: 1 on 04/10/2021 by Irvin Canchola MD at OR [facility] Right: Eye BAUSCH & LOMB 01/03/2026 [id number] / [id number] / [id number] documented as of this encounter Care Teams Certified Ophthalmic Medical Technician Relationship Specialty Start Date End Date Ferny Sr DO [address] [facility] [place] [address] PCP - General Internal Medicine 08/31/18 documented as of this encounter
--- OUTSIDE RECORDS SUMMARY | 2024-01-20 21:57 | External Medical Summary | Summary of Care ---
Author Name Unknown Organization [facility] Address [address] [place] [address] Phone [phone] Care Team Providers Care Protein Scientist Name Role Phone Disha Sr DO Primary Care Provider [phone] Reason for Referral * Precert (Within 10 days (routine)) - Pending Review Specialty Diagnoses / Procedures Referred By Nadir dimas Referred To Contact Radiology Diagnoses Acquired deformity of left wrist Procedures MRI WRIST LEFT WO CONTRAST Disha Sr DO [address] [place] [address] Referral ID Status Reason Start Date Expiration Date V isits Requested Visits Authorized [id number] Pending Review 12/09/2023 999 999 Reason for Visit * Reason Onset Date Comments Test Results 12/04/202312/07 Encounter Details Date Type Department Care Team (Late st Contact Info) Description 12/04/2023 Telephone Family Practice [address] [place] [address] [place] [address] Disha Sr DO [address] [place] [address] Test Results (12/07) Allergies Active Allergy Reactions Criticality Noted Date Comments Clarithromycin Other (Please comment) Low 1 "Burning mouth" sensation. documented as of this encounter (statuses as of 12/09/2023) Medications Medication Sig Dispensed Refills Start Date End Date Status Emergent Views ULTRA SYSTEM W/DEVICE KITIndications:DM type 2, goal A1c below 7 test once daily; dx 250.00 1 Kit 0 10/14/2012 Active VITAMIN C 500 MG PO TABS Take 1 Tablet by mouth daily at noon. 11/04/2013 Active NinePoint MedicalTOUCH ULTRASOFT LANCETS MISCIndications:DM type 2, goal A1c below 7 test once daily; dx 250.00 1 Box 5 11/12/2013 Active fluticasone (FLONASE) 50 MCG/ACT nasal spray Administer 2 Sprays into each nostril 2 times a day. 16 g 5 01/11/2020 Active Additional Information Patient taking differently:2 [place] Each NostrilHS, Indications: allergies, Reported on 08/13/2022 [...] by mouth daily. Active GNP Calcium 1200 6054-2803 MG-UNIT Oral Tablet Chewable Take 1 Tablet [...] pe 2 diabetes, HbA1C goal < 8% ([facility]) TEST 3 X DAILY DX E11.9 100 Strip 5 06/11/2022 Active ProAir HFA 108 (90 Base) MCG/ACT Inhalation Aerosol SolutionIndications: Acute cough,COPD, group A, by GOLD 2017 classification ([facility]) Inhale 2 Puffs by mouth in [...] gangrene, without long-term current use of insulin ([facility]),Type 2 diabetes mellitus with peripheral neuropathy ([facility]),Type 2 DM with CKD stage 3 and hypertension ([facility]),Type 2 diabetes, HbA1C goal < 8% ([facility]) Take 1 Tablet by mouth in the morning. 100 Tablet 2 08/04/2023 Active Letrozole 2.5 MG Oral Tablet (Femara)Indications: Malignant neoplasm of right breast in female, estrogen receptor positive, unspecified site of breast ([facility]) Take 1 Tablet by mouth in the morning. 100 Tablet 3 08/04/2023 Active amLODIPine Besylate 2.5 MG Oral Tablet (Norvasc)Indications :Type 2 DM with CKD stage 3 and hypertension ([facility]) Take 1 Tablet by mouth in the morning. 100 Tablet 3 08/13/2023 Active DULoxetine HCl 60 MG Oral Capsule Delayed Release Particles (Cymbalta) Take 1 Capsule by mouth at bedtime. 100 Capsule 2 08/20/2023 Active Potassium Chloride ER 10 MEQ Oral Tablet Extended ReleaseIndications:C hronic diastolic congestive heart failure ([facility]) Take 1 Tablet by mouth in the morning. 100 Tablet 2 08/20/2023 Active Montelukast Sodium 10 MG Oral Tablet (Singulair)Indicatio ns:Allergic rhinitis Take 1 Tablet by mouth every evening. 100 Tablet 3 08/25/2023 Active Ozempic (1 MG/DOSE) 4 MG/3ML Subcutaneous Solution Pen-injector (Semaglutide (1 MG/DOSE))Indications :Type 2 DM with CKD stage 3 and hypertension ([facility]) Inject 1 mg under the skin [...] ons:Type 2 diabetes, HbA1C goal < 8% ([facility]),Type 2 DM with CKD stage 3 [...] bedtime. 200 Tablet 3 10/28/2023 Active Pen [place] 32G X 4 MMIndications:Type 2 diabetes mellitus [...] Osteoporosis without current pathological fractu re 08/27/2023 [facility] current use of aromatase inhibitor Type 2 [...] 12/03/2023 Open-angle glaucoma 06/14/2021 10/16/19 Atherosclerosis of [place] co ronary artery without angina pectoris 03/26/2021 [...] mRNA, LNP-s, No Pre serve, 2-Dose Series (statusboom) 05/14/2021,09/21/2020,08/31/2020 COVID-19, LNP-s, No Preserve , Jose-sucrose, Ages 12+ (Pfizer) 12/11/2021 COVID-19, MRNA-LNP, 23-24, P F, 30 MCG/0.3 mL, 12 YRS AND ABOVE, IM ([facility]) 04/29/2023 Covid-19, Mrna, Lnp-s, Pf, B ivalent, 30 Mcg, IM, 12 yrs and above (statusboom) 05/14/2022 Pneumococcal Conjugate Vacc, 13 Valent (Prevnar) [...] Miscellaneous Notes * Telephone Encounter - Monse Butler OSA - 12/09/2023 1:17 PM EDT Left message on machine to return call to schedule MRI * Addendum Note - Disha Sr DO [...] Description 12/26/2023 11:00 AM EDT [facility] [address] [place] [address] [facility] Cardiology [address] [place] [address] 02/24/2024 11:00 AM EDT Laboratory Laboratory [facility] [address] [place] [phone] Trish Salgado [facility] [address] [place] [address] 02/24/2024 12:00 PM EDT Office Visit Hematology/Oncolog y Yvette Salgado [place] [address] [place] [address] Michelle Ruffin CRNP 400 [facility] [place] [address] 03/02/2024 2:30 PM EDT Hospital Encounter ENDO [facility] [place] [phone] Landon Kline MD [facility] [place] [address] 03/02/2024 2:30 PM EDT - 03/02/2024 3:00 PM EDT Surgery ENDO [facility], Endoscopy Room [facility] [place] [phone] Landon Kline MD 132 [facility] [address] COLONOSCOPY FLEXIBLE PROXIMAL DIAGNOSTIC 04/02/2024 10:30 AM EDT Office Visit Sleep Disorders Ctr [facility] [place] 132 [facility] [place] [phone] Mraa Archibald CRNP [address] [facility] [address] 04/05/2024 10:40 AM EDT Office Visit Family Practice [address] [place] [address] 293 [place] [address] Disha Sr DO [address] [place] [address] 05/11/2024 11:15 AM EST Office Visit Dermatology [facility] [place] 200 [facility] [place] [address] Kingston Huertas MD 200 [facility] [place] [address] Scheduled Orders Name Type Priority Associated Diagnoses [...] Screening 07/29/2024 07/29/2023 CKD HGB USE SMARTSET 39644 09/15/202409/15, 09/16/2023, 08/26/2023, Additional history exists CKD PHOS USE SMARTSET 98569 09/15/202409/04, 08/26/2023, 11/21/2022, Additional history exists O2 [...] D LEVEL ONCE IN A LIFETIME-USE SMARTSET# 30938 Completed 08/26/2023, 07/15/2022, 03/13/2022, Additional history exists [...] this encounter Medical Devices Implanted Type Area Household Cook Device Identifier Shelf Expiration Date Model / Serial / Lot Lens Intraoc 18.5 - [id number] - [id number] Implanted:Qty: 1 on 04/03/2021 by Irvin Canchola MD at OR [facility] Left: Eye BAUSCH & LOMB 01/03/2026 [id number] / [id number] / [id number] Lens Intraoc 18.5 - [id number] - [id number] Implanted:Qty: 1 on 04/10/2021 by Irvin Canchola MD at OR [facility] Right: Eye BAUSCH & LOMB 01/03/2026 [id number] / [id number] / [id number] documented as of this encounter Visit Diagnoses Diagnosis Acquired deformity of left wrist- Primary History of colonic polyps Personal history of colonic polyps documented in this encounter Care Teams Protein Scientist Relationship Specialty Start Date End Date Disha Sr DO [address] [place] [address] PCP - General Internal Medicine 08/31/18 documented as of this encounter
--- OUTSIDE RECORDS SUMMARY | 2024-01-20 21:57 | External Medical Summary | Summary of Care ---
Author Name Unknown Organization [facility] Address [address] [place] [address] Phone [phone] Care Team Providers Care Heritage Consultant Name Role Phone Ferny Sr DO Primary Care Provider [phone] Reason for Visit * Reason Onset Date Comments Appointment 12/03/2023 Encounter Details Date Type Department Care Team (Late st Contact Info) Description 12/03/2023 Telephone Radiology, [facility] [address] [place] [address] Requisition, External Radiology [address] [place] [address] Appointment Allergies Active Allergy Reactions Criticality Noted Date Comments Clarithromycin Other (Please comment) Low 06 1 "Burning mouth" sensation. documented as of this encounter (statuses as of 12/04/2023) Medications Medication Sig Dispensed Refills Start Date End Date Status OculogicaUCH ULTRA SYSTEM W/DEVICE KITIndications:DM type 2, goal [...] 01/11/2020 Active Additional Information Patient taking differently:2 [place] Each NostrilHS, Indications: allergies, Reported on 08/13/2022 [...] by mouth daily. Active GNP Calcium 1200 8280-0327 MG-UNIT Oral Tablet Chewable Take 1 Tablet [...] pe 2 diabetes, HbA1C goal < 8% ([facility]) TEST 3 X DAILY DX E11.9 100 Strip 5 06/11/2022 Active ProAir HFA 108 (90 Base) MCG/ACT Inhalation Aerosol SolutionIndications: Acute cough,COPD, group A, by GOLD 2017 classification ([facility]) Inhale 2 Puffs by mouth [...] gangrene, without long-term current use of insulin ([facility]),Type 2 diabetes mellitus with peripheral [...] LDL less than 70,PAD (peripheral artery disease) ([facility]) Take 1 Tablet by mouth in the morning. 100 Tablet 3 09/11/2023 Active Lisinopril 40 MG Oral TabletIndications:HT N, goal below 130/80 Take 1 Tablet by mouth in the morning. 100 Tablet 3 09/11/2023 Active Insulin Glargine Solostar 100 UNIT/ML Subcutaneous Solution Pen-injectorIndicati ons:Type 2 diabetes, HbA1C goal < 8% ([facility]),Type 2 DM with CKD stage 3 and hypertension ([facility]) Inject 30 Units under the [...] bedtime. 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 Type 2 [...] and oxygen 06/08 Overview: with 4 LPM [facility] Last Assessment & Plan: Compliant with BiPAP ADVANCE DIRECTIVE INFORMATION 12/07/2004 Overview: Yes, Patient instructed to provide copy of advance directive for provider to review and to be scanned into Electronic Medical Record Trigeminal neuralgia Mixed rhinitis Irritable bowel syndrome documented as of this encounter (statuses as of 12/04/2023) Resolved Problems Problem Noted Date Diagnosed Date Resolved Date Diabetes mellitus with stage 3 chronic kidney disease 07/15/2022 07/15/2022 Diabetes mellitus 07/15/2022 09/10/2022 Hypertensive heart disease without CHF 01/04/2022 07/15/2022 Class 2 severe obesity with serious comorbidity and body mass index (BMI) of 39.0 to 39.9 in adult 01/04/2022 12/03/2023 Open-angle glaucoma 06/14/2021 10/16/19 22 Atherosclerosis of [place] co ronary artery without angina pectoris 03/26/2021 [...] as of this encounter (statuses as of 12/04/2023) Immunizations Name Administration Dates Next Due COVID-19 mRNA, LNP-s, No Pre serve, 2-Dose Series (Itandi) 05/14/2021,09/21/2020,08/31/2020 COVID-19, LNP-s, No Preserve , Jose-sucrose, [...] Telephone Encounter - Monse Chen OSA - 12/04/2023 9:15 AM EDT Pt scheduled and aware. Thank you. * Telephone Encounter - Monse Chen OSA - 12/03/2023 4:13 PM EDT The previous order was cancelled and is not able to be re instated to schedule. Please re order and pt will be contacted to schedule. * Telephone Encounter - Monse Chen OSA - 12/03/2023 12:23 PM EDT Order changed to non vasc extremity. Pt just left office, will be contacted shortly to schedule US. Thank you * Telephone Encounter - Shruthi Palafox, CHAZ - 12/03/2023 12:16 PM EDT Pt needs scheduled for Ultrasound MSK if you could please assist Thank you documented in this encounter Plan of Treatment Upcoming Encounters Date Type Department Care Team (Late st Contact Info) Description 12/05/2023 11:00 AM EDT Office Visit Family Practice [address] [facility] 293 [facility], [place] [address] [place], Health Legal Word Processor [facility] Prac [address] [place] [address] 293 [facility], [place] [address] 12/08/2023 1:15 PM EDT Imaging Radiology [facility] 132 [facility] [place] [address] 12/26/2023 11:00 AM EDT Office Visit Cardiology, [facility] [address] [facility] [place] [address] Jaiden [facility] Clinic Cardiology [facility] [address] [facility] [place] [address] 02/24/2024 11:00 AM EDT Laboratory Laboratory [facility] [place] [address] [place] [phone] [place], Lab [facility] 200 [facility] [place] [address] 02/24/2024 12:00 PM EDT Office Visit Hematology/Oncolog y [facility] Naomi [place] [address] [place] [phone] Michelle Ruffin CRNP [address] [place] [address] [place] [id number] 03/02/2024 2:30 PM EDT Hospital Encounter ENDO [facility], Endoscopy Room [facility] 132 [facility] [place] [phone] Landon Kline MD 132 [facility] [place] [address] 03/02/2024 2:30 PM EDT - 03/02/2024 3:00 PM EDT Surgery ENDO [facility], Endoscopy Room [facility] [address] [facility] [place] [address] Landon Kline MD [address] [place] [address] COLONOSCOPY FLEXIBLE PROXIMAL DIAGNOSTIC 04/02/2024 10:30 AM EDT Office Visit Sleep Disorders Ctr [facility] 132 [facility] [phone] Mara Archibald CRNP 132 [facility] [address] 04/05/2024 10:40 AM EDT Office Visit Family Practice [address] [place] [address] 293 [facility] [place] [address] Ferny Sr, 293 [place] [address] 05/11/2024 11:15 AM EST Office Visit Dermatology [facility] 200 [facility] [place] [address] Kingston Huertas MD 200 [place] [address] Scheduled Procedures Name Priority Associated Diagnoses Date/Ti me COLONOSCOPY FLEXIBLE PROXIMAL DIAGNOSTIC History of colonic polyps 03/02/2024 2:30 PM EDT Health Maintenance Due Date Last Done Comments Alpha-1 Antitrypsin 12[birth year]02/1963 COVID-19 Vaccine ( season) 2023 04/29/2023, 05/14/2022, 12/11/2021, Additional history exists Postponed from 08/30/2023 (Patient Declined After Education) GFR 03/18/2024 09/16/2023, 08/08, 08/08/2023, Additional history exists HbA1c 06/04/2024 12/03/2023, 07/08, 03/18/2023, Additional history exists Diabetic Eye Exam 06/09/2024 06/09/2023, , 12/06/2022, Additional history exists Depression Screening 07/29/2024 07/29/2023 CKD HGB USE SMARTSET 33410 09/15/202409/15, 09/16/2023, 08/26/2023, Additional history exists CKD PHOS USE SMARTSET 97975 09/15/202409/04, 08/26/2023, 11/21/2022, Additional history exists O2 [...] D LEVEL ONCE IN A LIFETIME-USE SMARTSET# 98917 Completed 08/26/2023, 07/15/2022, 03/13/2022, Additional history exists [...] this encounter Medical Devices Implanted Type Area Service Car Operator Device Identifier Shelf Expiration Date Model / Serial / Lot Lens Intraoc 18.5 - [id number] - [id number] Implanted:Qty: 1 on 04/03/2021 by Irvin Canchola MD at OR [facility] Left: Eye BAUSCH & LOMB 01/03/2026 [id number] / [id number] / [id number] Lens Intraoc 18.5 - [id number] - [id number] Implanted:Qty: 1 on 04/10/2021 by Irvin Canchola MD at OR [facility] Right: Eye BAUSCH & LOMB 01/03/2026 [id number] / [id number] / [id number] documented as of this encounter Care Teams Heritage Consultant Relationship Specialty Start Date End Date Ferny Sr DO [address] [place] [address] PCP - General Internal Medicine 08/31/18 documented as of this encounter
--- OUTSIDE RECORDS SUMMARY | 2024-01-20 21:57 | External Medical Summary | Summary of Care ---
Author Name Unknown Organization [facility] Address [address] [place] [address] Phone [phone] Care Team Providers Care Upper Tier Name Role Phone Ferny Sr DO Primary Care Provider Encounter Details Date Type Department Care Team (Late st Contact Info) Description 12/09/2023 Documentation [facility] Linsey Cho, Health Customer Strategy Manager Allergies Active Allergy Reactions Criticality Noted Date [...] 01/11/2020 Active Additional Information Patient taking differently:2 [place] Each NostrilHS, Indications: allergies, Reported on 08/13/2022 [...] by mouth daily. Active GNP Calcium 1200 3171-3633 MG-UNIT Oral Tablet Chewable Take 1 Tablet [...] without long-term current use of insulin ([facility]),Type 2 diabetes mellitus with peripheral neuropathy ([facility]),Type 2 DM with CKD stage 3 and hypertension ([facility]),Type 2 diabetes, HbA1C goal < 8% ([facility]) Take 1 Tablet [...] bedtime. 200 Tablet 3 10/28/2023 Active [place] 32G X 4 MMIndications:Type 2 diabetes mellitus [...] Osteoporosis without current pathological fractu re 08/27/2023 skilled nursing current use of aromatase inhibitor Type 2 [...] and oxygen 06/08 Overview: with 4 LPM [facility] Last Assessment & Plan: Compliant [...] mRNA, LNP-s, No Pre serve, 2-Dose Series (Ecomsual) 05/14/2021,09/21/2020,08/31/2020 COVID-19, LNP-s, No Preserve , Jose-sucrose, Ages 12+ (Ecomsual) 12/11/2021 COVID-19, MRNA-LNP, 23-24, P F, 30 [...] encounter Progress Notes * Linsey Cho Health Customer Strategy Manager - 12/09/2023 1:19 PM EDT Did patient attend session 6 of 10 of the small group balance program? No: Patient did not attend session 1 of 10 of the small group balance program. documented in this encounter Plan of Treatment Upcoming Encounters Date Type Department Care Team (Late st Contact Info) Description 12/26/2023 11:00 AM EDT Office Visit Cardiology, [facility] 132 [facility] [place] [address] [facility] 132 [facility] [place] [address] 01/03/2024 10:00 AM EDT Imaging Radiology [facility] 1st [facility] [address] [place] [address] 02/24/2024 11:00 AM EDT Laboratory Laboratory [facility] [address] [place] [address] Trish Salgado [address] [place] [address] 02/24/2024 12:00 PM EDT Office Visit Hematology/Oncolog y [facility] [place] [address] [place] [phone] Michelle Ruffin CRNP [address] [place] [address] [place] [address] 03/02/2024 2:30 PM EDT Hospital Encounter ENDO O[facility], Endoscopy Room [facility] [address] [facility] [place] [phone] Landon Kline MD 132 [facility] [address] 03/02/2024 2:30 PM EDT - 03/02/2024 3:00 PM EDT Surgery ENDO [facility], Endoscopy Room [facility] [place] [phone] Landon Kline MD 132 [facility] [place] [address] COLONOSCOPY FLEXIBLE PROXIMAL DIAGNOSTIC 04/02/2024 10:30 AM EDT Office Visit Sleep Disorders Ctr Jimi Hwang [place] 132 [facility] [phone] Mara Archibald CRNP 132 [facility] [place] [address] 04/05/2024 10:40 AM EDT Office Visit Family Practice [address] [place] [address] 293 [place] [address] Ferny Sr, 293 [place] [address] 05/11/2024 11:15 AM EST Office Visit [facility]atology [facility] 200 [facility] [address] [place] [address] Kingston Huretas MD [address] [place], [place] [address] Scheduled Procedures Name Priority Associated Diagnoses Date/Ti [...] Screening 07/29/2024 07/29/2023 CKD HGB USE SMARTSET 98217 09/15/202409/15, 09/16/2023, 08/26/2023, Additional history exists CKD PHOS USE SMARTSET 20172 09/15/202409/04, 08/26/2023, 11/21/2022, Additional history exists O2 [...] D LEVEL ONCE IN A LIFETIME-USE SMARTSET# 73039 Completed 08/26/2023, 07/15/2022, 03/13/2022, Additional history exists [...] this encounter Medical Devices Implanted Type Area Building Performance Consultant Device Identifier Shelf Expiration Date Model / Serial / Lot Lens Intraoc 18.5 - [id number] - [id number] Implanted:Qty: 1 on 04/03/2021 by Irvin Canchola MD at OR [facility] Left: Eye BAUSCH & LOMB 01/03/2026 [id number] / [id number] / [id number] Lens Intraoc 18.5 - [id number] - [id number] Implanted:Qty: 1 on 04/10/2021 by Irvin Canchola MD at OR [facility] Right: Eye BAUSCH & LOMB 01/03/2026 [id number] / [id number] / [id number] documented as of this encounter Care Teams Upper Tier Relationship Specialty Start Date End Date Ferny Sr DO [address] [place] [address] PCP - General Internal Medicine 08/31/18 documented as of this encounter
--- OUTSIDE RECORDS SUMMARY | 2024-01-20 21:57 | External Medical Summary | Summary of Care ---
Author Name Unknown Organization [facility] Address [address] [place] [address] Phone [phone] Care Team Providers Care Line Assembler Name Role Phone Disha Sr DO Primary Care Provider Reason for Referral * Precert (Within 10 days (routine)) - Pending Review Specialty Diagnoses / Procedures Referred By Nadir dimas Referred To Contact Radiology Diagnoses Acquired deformity of left wrist Procedures MRI WRIST LEFT WO CONTRAST Disha Sr DO [address] [place] [address] Referral ID Status Reason Start Date Expiration Date V isits Requested Visits Authorized [id number] Pending Review 12/09/2023 999 999 Reason for Visit * Reason Onset Date Comments Test Results 12/04/202312/07 Encounter Details Date Type Department Care Team (Late st Contact Info) Description 12/04/2023 Telephone Family Practice [address], [place] [address] [place] [address] Disha Sr DO [address] [place] [address] Test Results (12/07) Allergies Active Allergy Reactions Criticality Noted Date Comments Clarithromycin Other (Please comment) Low 1 "Burning mouth" sensation. documented as of this encounter (statuses as of 12/09/2023) Medications Medication Sig Dispensed Refills Start Date End Date Status 25eight ULTRA SYSTEM W/DEVICE KITIndications:DM type 2, goal A1c below 7 test once daily; dx 250.00 1 Kit 0 10/14/2012 Active VITAMIN C 500 MG PO TABS Take 1 Tablet by mouth daily at noon. 11/04/2013 Active mySugrTOUCH ULTRASOFT LANCETS MISCIndications:DM type 2, goal A1c below 7 test once daily; dx 250.00 1 Box 5 11/12/2013 Active fluticasone (FLONASE) 50 MCG/ACT nasal spray Administer 2 Sprays into each nostril 2 times a day. 16 g 5 01/11/2020 Active Additional Information Patient taking differently:2 [place] Each NostrilHS, Indications: allergies, Reported on 08/13/2022 [...] by mouth daily. Active GNP Calcium 1200 9435-1461 MG-UNIT Oral Tablet Chewable Take 1 Tablet [...] < 8% ([facility]) TEST 3 X DAILY DX E11.9 100 Strip 5 06/11/2022 Active ProAir HFA 108 (90 Base) MCG/ACT Inhalation Aerosol SolutionIndications: Acute cough,COPD, group A, by GOLD 2017 classification ([facility]) Inhale 2 Puffs by mouth in the [...] of insulin ([facility]),Type 2 diabetes mellitus with peripheral neuropathy ([facility]),Type 2 DM with CKD stage 3 and hypertension ([facility]),Type 2 diabetes, HbA1C goal < 8% ([facility]) Take 1 Tablet by mouth in the morning. 100 Tablet 2 08/04/2023 Active Letrozole 2.5 MG Oral Tablet (Femara)Indications: Malignant neoplasm of right breast in female, estrogen receptor positive, unspecified site of breast ([facility]) Take 1 Tablet by mouth in the morning. 100 Tablet 3 08/04/2023 Active amLODIPine Besylate 2.5 MG Oral Tablet (Norvasc)Indications :Type 2 DM with CKD stage 3 and hypertension ([facility]) Take 1 Tablet by mouth in the morning. 100 Tablet 3 08/13/2023 Active DULoxetine HCl 60 MG Oral Capsule Delayed Release Particles (Cymbalta) Take 1 Capsule by mouth at bedtime. 100 Capsule 2 08/20/2023 Active Potassium Chloride ER 10 MEQ Oral Tablet Extended ReleaseIndications:C hronic diastolic congestive heart failure ([facility]) Take 1 Tablet by mouth in the morning. 100 Tablet 2 08/20/2023 Active Montelukast Sodium 10 MG Oral Tablet (Singulair)Indicatio ns:Allergic rhinitis Take 1 Tablet by mouth every evening. 100 Tablet 3 08/25/2023 Active Ozempic (1 MG/DOSE) 4 MG/3ML Subcutaneous Solution Pen-injector (Semaglutide (1 MG/DOSE))Indications :Type 2 DM with CKD stage 3 and hypertension ([facility]) Inject 1 mg under the skin once [...] < 8% ([facility]),Type 2 DM with CKD stage 3 and [...] bedtime. 200 Tablet 3 10/28/2023 Active Pen [place] 32G X 4 MMIndications:Type 2 diabetes mellitus [...] Osteoporosis without current pathological fractu re 08/27/2023 [facility] current use of aromatase inhibitor Type 2 [...] and oxygen 06/08 Overview: with 4 LPM [facility] Last Assessment & Plan: Compliant with [...] 12/03/2023 Open-angle glaucoma 06/14/2021 10/16/19 Atherosclerosis of [place] co ronary artery without angina pectoris 03/26/2021 [...] mRNA, LNP-s, No Pre serve, 2-Dose Series (25eight) 05/14/2021,09/21/2020,08/31/2020 COVID-19, LNP-s, No Preserve , Jose-sucrose, Ages 12+ (Pfizer) 12/11/2021 COVID-19, MRNA-LNP, 23-24, P F, 30 MCG/0.3 mL, 12 YRS AND ABOVE, IM ([facility]) 04/29/2023 Covid-19, Mrna, Lnp-s, Pf, B ivalent, 30 Mcg, IM, 12 yrs and above (25eight) 05/14/2022 Pneumococcal Conjugate Vacc, 13 Valent (Prevnar) [...] Notes * Telephone Encounter - Betty Topete RPh - 12/09/2023 4:52 PM EDT Scheduled patient with pharmacy to discuss med changes * Telephone Encounter - Monse Butler OSA [...] AM EDT Office Visit Family Practice 65 [facility] 293 [place] [address] College, Pharmacist [address] [place] [address] 12/26/2023 11:00 AM EDT Office Visit Cardiology, [facility] [address] [place] [address] [facility] Cardiology [facility] [address] [place] [address] 01/03/2024 10:00 AM EDT Imaging Radiology [address] [place] [address] 02/24/2024 11:00 AM EDT Laboratory Laboratory [facility] [address] [place] [phone] [place], Lab [facility] [address] [place] [address] 02/24/2024 12:00 PM EDT Office Visit Hematology/Oncolog y [facility] [address] [place] [address] Michelle Ruffin, CHE [address] [place] [address] [place] [address] 03/02/2024 2:30 PM EDT Hospital Encounter ENDO [facility], Endoscopy Room [facility] [address] [place] [phone] Landon Kline MD [address] [place] [address] 03/02/2024 2:30 PM EDT - 03/02/2024 3:00 PM EDT Surgery ENDO [facility], Endoscopy Room [facility] 132 [place] [phone] Landon Kline MD [address] [place] [address] COLONOSCOPY FLEXIBLE PROXIMAL DIAGNOSTIC 04/02/2024 10:30 AM EDT Office Visit Sleep Disorders Ctr [facility] [address] [address] Mara Archibald CRNP [address] [place] [address] 04/05/2024 10:40 AM EDT Office Visit Family Practice [address] [place] [address] [address] [facility] [address] Disha Sr, [address] [facility] [address] 05/11/2024 11:15 AM EST Office Visit Dermatology [facility] 200 [facility] [place] [address] Kingston Huertas MD [address] [place] [address] Scheduled Orders Name Type Priority Associated Diagnoses [...] Screening 07/29/2024 07/29/2023 CKD HGB USE SMARTSET 15217 09/15/202409/15, 09/16/2023, 08/26/2023, Additional history exists CKD PHOS USE SMARTSET 20952 09/15/202409/04, 08/26/2023, 11/21/2022, Additional history exists O2 [...] D LEVEL ONCE IN A LIFETIME-USE SMARTSET# 79465 Completed 08/26/2023, 07/15/2022, 03/13/2022, Additional history exists [...] this encounter Medical Devices Implanted Type Area Environmental Services Project Manager Device Identifier Shelf Expiration Date Model / Serial / Lot Lens Intraoc 18.5 - [id number] - [id number] Implanted:Qty: 1 on 04/03/2021 by Irvin Canchola MD at OR [facility] Left: Eye BAUSCH & LOMB 01/03/2026 [id number] / [id number] / [id number] Lens Intraoc 18.5 - [id number] - [id number] Implanted:Qty: 1 on 04/10/2021 by Irvin Canchola MD at OR [facility] Right: Eye BAUSCH & LOMB 01/03/2026 [id number] / [id number] / [id number] documented as of this encounter Visit Diagnoses Diagnosis Acquired deformity of left wrist- Primary History of colonic polyps Personal history of colonic polyps documented in this encounter Care Teams Line Assembler Relationship Specialty Start Date End Date Disha Sr DO [address] [place] [address] PCP - General Internal Medicine 08/31/18 documented as of this encounter
--- OUTSIDE RECORDS SUMMARY | 2024-01-20 21:57 | External Medical Summary | Summary of Care ---
Author Name Unknown Organization [facility] Address [address] [place] [address] Phone [phone] Care Team Providers Care Certified Coding Specialist Name Role Phone Disha Sr DO Primary Care Provider Reason for Referral * Precert (Within 10 days (routine)) - Pending Review Specialty Diagnoses / Procedures Referred By Nadir dimas Referred To Contact Radiology Diagnoses Acquired deformity of left wrist Procedures MRI WRIST LEFT WO CONTRAST Disha Sr DO [address] [place] [address] Referral ID Status Reason Start Date Expiration Date V isits Requested Visits Authorized [id number] Pending Review 12/09/2023 999 999 Reason for Visit * Reason Onset Date Comments Test Results 12/04/202312/07 Encounter Details Date Type Department Care Team (Late st Contact Info) Description 12/04/2023 Telephone Family Practice [address], [place] [address] [place] [address] Disha Sr DO [address] [place] [address] Test Results (12/07) Allergies Active Allergy Reactions Criticality Noted Date Comments Clarithromycin Other (Please comment) Low 1 "Burning mouth" sensation. documented as of this encounter (statuses as of 12/09/2023) Medications Medication Sig Dispensed Refills Start Date End Date Status WhenSoon ULTRA SYSTEM W/DEVICE KITIndications:DM type 2, goal A1c below 7 test once daily; dx 250.00 1 Kit 0 10/14/2012 Active VITAMIN C 500 MG PO TABS Take 1 Tablet by mouth daily at noon. 11/04/2013 Active CrelowTOUCH ULTRASOFT LANCETS MISCIndications:DM type 2, goal A1c below 7 test once daily; dx 250.00 1 Box 5 11/12/2013 Active fluticasone (FLONASE) 50 MCG/ACT nasal spray Administer 2 Sprays into each nostril 2 times a day. 16 g 5 01/11/2020 Active Additional Information Patient taking differently:2 [place] Each NostrilHS, Indications: allergies, Reported on [...] by mouth daily. Active GNP Calcium 1200 7235-7394 MG-UNIT Oral Tablet Chewable Take 1 Tablet [...] bedtime. 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) 04/29/2023 Covid-19, Mrna, Lnp-s, Pf, B ivalent, 30 Mcg, IM, 12 yrs and above ([employer]) 05/14/2022 Pneumococcal Conjugate Vacc, 13 Valent (Prevnar) [...] AM EDT Office Visit Family Practice 65 [facility] 293 [facility], [place] [phone] [place], Health Quarter Seamer [facility] Prac [address] [place] [address], [place] [address] 12/26/2023 11:00 AM EDT Office Visit CardiologyKristoferbaltazar [facility] 132 [facility] [place] [address] [facility] Cardiology [facility] 132 [facility] [place] [address] 02/24/2024 11:00 AM EDT Laboratory Laboratory [facility] [place] [address] [place] [phone] Trish Salgado [address] [place] [address] 02/24/2024 12:00 PM EDT Office Visit Hematology/Oncolog y [facility] [address] [place], [place] [address] Michelle Ruffin CRNP [address] [place] [address] 03/02/2024 2:30 PM EDT Hospital Encounter ENDO [facility], Endoscopy Room [facility] [address] [place] [phone] Landon Kline MD [address] [place] [address] 03/02/2024 2:30 PM EDT - 03/02/2024 3:00 PM EDT Surgery ENDO [facility], Endoscopy Room [facility] [address] [place] [phone] Landon Kline MD [address] [place] [address] COLONOSCOPY FLEXIBLE PROXIMAL DIAGNOSTIC 04/02/2024 10:30 AM EDT [facility] [place] 132 [facility] [place] [phone] Mara Archibald CRNP [address] [place] [address] 04/05/2024 10:40 AM EDT Office Visit Family Practice [address] [place] [address] 293 [facility] [place] [address] Disha Sr, 293 [place] [address] 05/11/2024 11:15 AM EST Office Visit Dermatology [facility] [address] [place], [place] [address] Kingston Huertas MD 200 [facility] [place] [address] Scheduled Orders Name Type Priority Associated Diagnoses [...] Screening 07/29/2024 07/29/2023 CKD HGB USE SMARTSET 91721 09/15/202409/15, 09/16/2023, 08/26/2023, Additional history exists CKD PHOS USE SMARTSET 97751 09/15/202409/04, 08/26/2023, 11/21/2022, Additional history exists O2 [...] D LEVEL ONCE IN A LIFETIME-USE SMARTSET# 86354 Completed 08/26/2023, 07/15/2022, 03/13/2022, Additional history exists [...] this encounter Medical Devices Implanted Type Area Cupola Mechanic Device Identifier Shelf Expiration Date Model / Serial / Lot Lens Intraoc 18.5 - [id number] - [id number] Implanted:Qty: 1 on 04/03/2021 by Irvin Canchola MD at OR [facility] Left: Eye BAUSCH & LOMB 01/03/2026 [id number] / [id number] / [id number] Lens Intraoc 18.5 - [id number] - [id number] Implanted:Qty: 1 on 04/10/2021 by Irvin Canchola MD at OR [facility] Right: Eye BAUSCH & LOMB 01/03/2026 [id number] / [id number] / [id number] documented as of this encounter Visit Diagnoses Diagnosis Acquired deformity of left wrist- Primary History of colonic polyps Personal history of colonic polyps documented in this encounter Care Teams Certified Coding Specialist Relationship Specialty Start Date End Date Disha Sr DO [address] [place] [address] PCP - General Internal Medicine 08/31/18 documented as of this encounter
--- OUTSIDE RECORDS SUMMARY | 2024-01-20 21:58 | External Medical Summary | Summary of Care ---
Author Name Unknown Organization [facility] Address [address] [place] [address] Phone [phone] Care Team Providers Care Oil Pipeline Dispatcher Name Role Phone Ferny Sr DO Primary Care Provider [phone] Reason for Visit * Reason Onset Date Comments Appointment 12/03/2023 Encounter Details Date Type Department Care Team (Late st Contact Info) Description 12/03/2023 Telephone Radiology, [facility] [address] [place] [address] Requisition, External Radiology [address] [place] [address] Appointment Allergies Active Allergy Reactions Criticality Noted Date Comments Clarithromycin Other (Please comment) Low 06200 1 "Burning mouth" sensation. documented as of this encounter (statuses as of 12/03/2023) Medications Medication Sig Dispensed Refills Start Date End Date Status Tira WirelessUCH ULTRA SYSTEM W/DEVICE KITIndications:DM type 2, goal [...] 01/11/2020 Active Additional Information Patient taking differently:2 [place] Each NostrilHS, Indications: allergies, Reported on 08/13/2022 [...] by mouth daily. Active GNP Calcium 1200 4316-4789 MG-UNIT Oral Tablet Chewable Take 1 Tablet [...] diabetes, HbA1C goal < 8% ([facility]) TEST 3 X DAILY DX E11.9 100 Strip 5 06/11/2022 Active ProAir HFA 108 (90 Base) MCG/ACT Inhalation Aerosol SolutionIndications: Acute cough,COPD, group A, by GOLD 2017 classification ([facility]) Inhale 2 Puffs by mouth in the [...] long-term current use of insulin ([facility]),Type 2 diabetes mellitus with peripheral neuropathy (HCC),Type [...] than 70,PAD (peripheral artery disease) ([facility]) Take 1 Tablet by mouth in the morning. 100 Tablet 3 09/11/2023 Active Lisinopril 40 MG Oral TabletIndications:HT N, goal below 130/80 Take 1 Tablet by mouth in the morning. 100 Tablet 3 09/11/2023 Active Insulin Glargine Solostar 100 UNIT/ML Subcutaneous Solution Pen-injectorIndicati ons:Type 2 diabetes, HbA1C goal < 8% ([facility]),Type 2 DM with CKD stage 3 and hypertension ([facility]) Inject 30 Units under the skin every [...] bedtime. 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 Type 2 [...] and oxygen 06/08 Overview: with 4 LPM [facility] Last Assessment & Plan: Compliant with BiPAP ADVANCE DIRECTIVE INFORMATION 12/07/2004 Overview: Yes, Patient instructed to provide copy of advance directive for provider to review and to be scanned into Electronic Medical Record Trigeminal neuralgia Mixed rhinitis Irritable bowel syndrome documented as of this encounter (statuses as of 12/03/2023) Resolved Problems Problem Noted Date Diagnosed Date Resolved Date Diabetes mellitus with stage 3 chronic kidney disease 07/15/2022 07/15/2022 Diabetes mellitus 07/15/2022 09/10/2022 Hypertensive heart disease without CHF 01/04/2022 07/15/2022 Class 2 severe obesity with serious comorbidity and body mass index (BMI) of 39.0 to 39.9 in adult 01/04/2022 12/03/2023 Open-angle glaucoma 06/14/2021 10/16/19 22 Atherosclerosis of [place] ronary artery without angina pectoris 03/26/2021 [...] as of this encounter (statuses as of 12/03/2023) Immunizations Name Administration Dates Next Due COVID-19 mRNA, LNP-s, No Pre serve, 2-Dose Series (Vrvana) 05/14/2021,09/21/2020,08/31/2020 COVID-19, LNP-s, No Preserve , Jose-sucrose, [...] yrs 04/16/2019 TD - Tetanus/Diptheria (ADULT) 09/16/2017 TDAP (age 11 and older)(Adacel) 04/06/2008 Varicella Zoster Vaccine (Adult) 06/14/2009 Zoster [...] Thank you * Telephone Encounter - Shruthi Palafox OSA - 12/03/2023 12:16 PM EDT Pt needs scheduled for Ultrasound MSK if you could please assist Thank you documented in this encounter Plan of Treatment Upcoming Encounters Date Type Department Care Team (Late st Contact Info) Description 12/26/2023 11:00 AM EDT Office Visit CardiologyKristoferbaltazar [facility] [address] [place] [address] [facility] Cardiology [facility] [address] [place] [address] 02/24/2024 11:00 AM EDT Laboratory Laboratory Yvette Salgado [place] [address] [place] [address] Trish Salgado [address] [place] [address] 02/24/2024 12:00 PM EDT Office Visit Hematology/Oncolog y [facility] Naomi [place] [address] [place] [address] Michelle Ruffin CRNP [address] [place] [address] 03/02/2024 2:30 PM EDT Hospital Encounter [facility] [address] [place] [phone] Landon Kline MD [address] [place] [address] 03/02/2024 2:30 PM EDT - 03/02/2024 3:00 PM EDT Surgery [facility]O [facility], [facility] [address] [place] [phone] Landon Kline MD [address] [place] [address] COLONOSCOPY FLEXIBLE PROXIMAL DIAGNOSTIC 04/02/2024 10:30 AM EDT Office Visit Sleep Disorders Ctr [facility] [place] [address] [place] [phone] Mara Archibald CRNP [address] [place] [address] 04/05/2024 10:40 AM EDT Office Visit Family Practice [address] [place] [address], [place] [facility] [phone] Ferny Sr, 293 [facility], [place] [address] 05/11/2024 11:15 AM EST Office Visit Dermatology Yvette Salgado [place] [address] [place], [place] [address] Kingston Huertas MD [address] [facility] [address] [place], [place] [address] Scheduled Procedures Name Priority Associated Diagnoses Date/Ti me COLONOSCOPY FLEXIBLE PROXIMAL DIAGNOSTIC History of colonic polyps 03/02/2024 2:30 PM EDT Health Maintenance Due Date Last Done Comments Alpha-1 Antitrypsin 12/02/1963 Albumin/Creatinine Ratio 07/15/2023 023, 08/15/2021, 09/14/2020, Additional history exists COVID-19 Vaccine ( season) 2023 04/29/2023, 05/14/2022, 12/11/2021, Additional history exists Postponed from 08/30/2023 (Patient Declined After Education) HbA1c 01/27/2024 07/29/2023, 03/07, 11/13/2022, Additional history exists GFR 03/18/2024 09/16/2023, 08/08, 08/08/2023, Additional history exists Diabetic Eye Exam 06/09/2024 06/09/2023, , 12/06/2022, Additional history exists Depression Screening 07/29/2024 07/29/2023 CKD HGB USE SMARTSET 54611 09/15/202409/15, 09/16/2023, 08/26/2023, Additional history exists CKD PHOS USE SMARTSET 18876 09/15/202409/04, 08/26/2023, 11/21/2022, Additional history exists O2 ASSESSMENT COMPLETED IN PAST YEAR FOR COPD 10/27/2024 10/28/2023 Colonoscopy 12/02/2024 12/03/2023, 03/0 07/2022, 02/13/2015, Additional [...] D LEVEL ONCE IN A LIFETIME-USE SMARTSET# 18881 Completed 08/26/2023, 07/15/2022, 03/13/2022, Additional history exists [...] this encounter Medical Devices Implanted Type Area Local Company Tanker Driver Device Identifier Shelf Expiration Date Model / Serial / Lot Lens Intraoc 18.5 - [id number] - [id number] Implanted:Qty: 1 on 04/03/2021 by Irvin Canchola MD at [facility] Left: Eye BAUSCH & LOMB 01/03/2026 [id number] / [id number] / [id number] Lens Intraoc 18.5 - [id number] - [id number] Implanted:Qty: 1 on 04/10/2021 by Irvin Canchola MD at OR [facility] Right: Eye BAUSCH & LOMB 01/03/2026 [id number] / [id number] / [id number] documented as of this encounter Care Teams Oil Pipeline Dispatcher Relationship Specialty Start Date End Date Ferny Sr DO [address] [place] [address] PCP - General Internal Medicine 08/31/18 documented as of this encounter
--- OUTSIDE RECORDS SUMMARY | 2024-01-20 21:58 | External Medical Summary | Summary of Care ---
Author Name Unknown Organization [facility] Address [address] [place] [address] Phone [phone] Care Team Providers Care Cashier Self Service Gasoline Name Role Phone Ferny Sr DO Primary Care Provider [phone] Reason for Visit * Reason Comments Follow Up Encounter Details Date Type Department Care Team (Latest Contact Info) Description 12/03/2023 10:40 AM EDT Office Visit Family Practice [facility] [address] [place] [address] Ferny Sr DO [address] [place] [address] Type 2 DM with CKD stage 3 and hypertension ([facility])*; Malignant neoplasm of right breast in female, estrogen receptor positive, unspecified site of breast ([facility]); Type 2 diabetes mellitus with diabetic peripheral angiopathy without gangrene, with long-term current use of insulin ([facility]); COPD, group A, by GOLD 2017 classification ([facility]); Trigeminal neuralgia; Obstructive sleep apnea syndrome; CEREBROVASCULAR DZ, POST-STROKE; Disc disorder of lumbar region; Hyperlipidemia with target LDL less than 70; Vitamin D deficiency; Chronic diastolic congestive heart failure (HCC); Age-related osteoporosis without current pathological fracture; B12 deficiency; Folic acid deficiency; Subcutaneous cyst; Left wrist pain Allergies Active Allergy Reactions Criticality Noted Date Comments Clarithromycin Other (Please comment) Low 1 "Burning mouth" sensation. documented as of this encounter (statuses as of 12/03/2023) Medications Medication Sig Dispensed Refills Start Date End Date Status Innobits SYSTEM W/DEVICE KITIndications:DM type 2, goal A1c [...] 0 Active Additional Information Patient taking differently:2 [place] Each NostrilHS, Indications: allergies, Reported on 08/13/2022 [...] by mouth daily. Active GNP Calcium 1200 1655-6336 MG-UNIT Oral Tablet Chewable Take 1 Tablet [...] ype 2 diabetes, HbA1C goal < 8% ([facility]) TEST 3 X DAILY DX E11.9 100 Strip 5 2 Active ProAir HFA 108 (90 Base) MCG/ACT Inhalation Aerosol SolutionIndications :Acute cough,COPD, group A, by GOLD 2017 classification ([facility]) Inhale 2 Puffs by mouth in the morning and 2 Puffs at noon and 2 Puffs in the evening and 2 Puffs before bedtime. 8 g 3 Active Furosemide 40 MG Oral Tablet (Lasix) take 1 tablet by mouth twice a day 180 Tablet 2 3 Active Empagliflozin 25 MG Oral Tablet (Jardiance)Indicati ons:Type 2 diabetes mellitus with diabetic peripheral angiopathy without gangrene, without long-term current use of insulin ([facility]),Type 2 diabetes mellitus with peripheral neuropathy ([facility]),Type 2 DM with CKD stage 3 and hypertension ([facility]),Type 2 diabetes, HbA1C goal < 8% ([facility]) Take 1 Tablet by mouth in the morning. 100 Tablet 2 4 Active Letrozole 2.5 MG Oral Tablet (Femara)Indications :Malignant neoplasm of right breast in female, estrogen receptor positive, unspecified site of breast ([facility]) Take 1 Tablet by mouth in the morning. 100 Tablet 3 4 Active amLODIPine Besylate 2.5 MG Oral Tablet (Norvasc)Indication s:Type 2 DM with CKD stage 3 and hypertension ([facility]) Take 1 Tablet by mouth in the morning. 100 Tablet 3 4 Active DULoxetine HCl 60 MG Oral Capsule Delayed Release Particles (Cymbalta) Take 1 Capsule by mouth at bedtime. 100 Capsule 2 4 Active Potassium Chloride ER 10 MEQ Oral Tablet Extended ReleaseIndications: Chronic diastolic congestive heart failure ([facility]) Take 1 Tablet by mouth in the morning. 100 Tablet 2 4 Active Montelukast Sodium 10 MG Oral Tablet (Singulair)Indicati ons:Allergic rhinitis Take 1 Tablet by mouth every evening. 100 Tablet 3 4 Active Ozempic (1 MG/DOSE) 4 MG/3ML Subcutaneous Solution Pen-injector (Semaglutide (1 MG/DOSE))Indication s:Type 2 DM with CKD stage 3 and hypertension ([facility]) Inject 1 mg under the skin once a week. 9 mL 3 4 Active Folic Acid 1 MG Oral [...] two capsule at bedtime 300 Capsule 3 4 Active Labetalol HCl 200 MG Oral Tablet (Normodyne)Indicati ons:HTN, goal: symptom mgmt only,Resistant hypertension,HTN, goal below 150/90,Fatigue, unspecified type Take 1 Tablet by mouth in the morning and 1 Tablet before bedtime. 200 Tablet 3 4 Active Ezetimibe 10 MG Oral Tablet (Zetia)Indications: Dyslipidemia, goal LDL below 70,Hyperlipidemia with target LDL less than 70,PAD (peripheral artery disease) ([facility]) Take 1 Tablet by mouth in the morning. 100 Tablet 3 4 Active Lisinopril 40 MG Oral TabletIndications:H TN, goal below 130/80 Take 1 Tablet by mouth in the morning. 100 Tablet 3 4 Active Insulin Glargine Solostar 100 UNIT/ML Subcutaneous Solution Pen-injectorIndicat ions:Type 2 diabetes, HbA1C goal < 8% ([facility]),Type 2 DM with CKD stage 3 and hypertension ([facility]) Inject 30 Units under the skin [...] bedtime. 200 Tablet 3 4 Active Pen [place] 32G X 4 MMIndications:Type 2 diabetes mellitus [...] for Pain, Severe. 90 Tablet 4 Active Molnupiravir 200 MG Oral Capsule Take 4 Capsules by mouth in the morning and 4 Capsules before bedtime. 40 Capsule 4 12/03/19 24 Discontinu ed(Medicat ion List Clean Up) documented as of this encounter (statuses as of 12/03/2023) Active Problems Problem Noted Date Diagnosed Date Osteoporosis without current pathological fractu re 08/27/2023 long term acute care registered nurse current use of aromatase inhibitor Type 2 [...] and oxygen 06/08 Overview: with 4 LPM [facility] Last Assessment & Plan: Compliant with BiPAP [...] Open-angle glaucoma 06/14/2021 10/16/19 22 Atherosclerosis of [place] co ronary artery without angina pectoris 03/26/2021 [...] mRNA, LNP-s, No Pre serve, 2-Dose Series ([employer]) 05/14/2021,09/21/2020,08/31/2020 COVID-19, LNP-s, No Preserve , Jose-sucrose, Ages 12+ (Pfizer) 12/11/2021 COVID-19, MRNA-LNP, 23-24, P F, 30 MCG/0.3 mL, 12 YRS AND ABOVE, IM (REAL SAMURAI-Comirnat) 04/29/2023 Covid-19, Mrna, Lnp-s, Pf, B ivalent, [...] yrs 04/16/2019 TD - Tetanus/Diptheria (ADULT) 09/16/2017,1995 TDAP (age 11 and older)(Adacel) 04/06/2008 Varicella Zoster Vaccine (Adult) 06/14/2009 Zoster Vaccine Recombinant (Shingrix) 09/15/2019 ,05/10/2019 documented as of this encounter Social History Tobacco Use Types Packs/Day Years Used Date Smoking Tobacco: Former Cigarettes 1 40 1 - 04/21/2012 Passive Smoke Exposure: Past Smokeless Tobacco: Never Tobacco Cessation:Counseling Given: Yes Comments:no passive smoke Alcohol Use Standard Drinks/Week [...] on file documented as of this encounter Last Filed Vital Signs Vital Sign Reading Time Taken Comments Blood Pressure 136/84 12/03/2023 10:56 AM EDT Pulse 66 12/03/2023 10:56 AM EDT Temperature 36.3 C (97.4 F) 12/03/2023 1 0:56 AM EDT Respiratory Rate 16 12/03/2023 10:5 6 AM EDT Oxygen Saturation - - Inhaled Oxygen Concentration - - Weight 106.1 kg (233 lb 14.4 oz) 2023 10:56 AM EDT Height 162.6 cm (5' 4") 12/03/2023 10:5 6 AM EDT Body Mass Index 40.15 12/03/2023 10:56 AM EDT documented in this encounter Patient Instructions * Patient Instructions* Sasha Balderas, [place] - 12/03/2023 10:56 AM EDT Diabetes: Keeping Feet Healthy Inspect your feet every day for signs of a problem. Diabetes can damage nerves in your feet and cause neuropathy. This condition makes it hard for you to feel injuries or sore spots. Diabetes can also change blood flow, making it harder for small problems, like a blister, to heal properly. In fact, minor injuries can quickly become serious infections that send you to the hospital. Practice self-care to protect your feet and keep them healthy. Take Special Care Inspect your feet daily for problems such as redness, blisters, cracks, dry skin, or numbness. Use a mirror to see the bottoms of your feet. Or, ask for help. Manage your diabetes. Monitor and control your blood sugar. Take all your medications as prescribed. Avoid walking barefoot, even indoors. Wash your feet with warm water and mild soap. Dry well, especially between toes. Dont treat corns or calluses yourself. Talk to your doctor or lining stitcher (a doctor who specializes in foot care) if you need assistance trimming your toenails. Use moisturizing cream or lotion if you have dry skin, but dont use it between toes. Dont use heating pads on your feet. If you have neuropathy, you could get a burn and not feel it. Stop smoking. Smoking restricts blood flow and can make it harder for wounds to heal. Have Regular Checkups Foot problems can develop quickly. So be sure to follow your healthcare teams schedule for regular checkups. During office visits, take off your shoes and socks as soon as you get in the exam room. Ask your healthcare provider to examine your feet for problems. This will make it easier to find and treat small skin irritations before they get worse. Regular checkups can also help keep track of the blood flow and feeling in your feet. If you have neuropathy, you may need to have checkups more often. Wear Proper Footwear Wearing proper footwear is very important. If areas of your feet have been damaged by too much pressure, your healthcare provider may recommend changing your footwear. In some cases, avoiding high heels or tight work boots may be all thats needed. Or, your healthcare provider may recommend special shoes or custom inserts. These help protect your feet and keep existing irritations from getting worse. If you need special footwear, ask your healthcare provider if you qualify for [employer] diabetic shoe program. Make Sure Shoes and Socks Fit Any pair of shoes--new or old--should feel comfortable as soon as you put them on. There shouldnt be any rubbing when you walk. Wear the right shoe for any activity. For instance, a running shoe is designed to keep your feet injury-free while jogging. Buy shoes at the end of the day, when your feet are larger. Make sure they provide support without feeling too loose. Make sure your socks fit, t oo. Wear soft, seamless, well-padded socks for activity. Cotton or microfiber socks are best to help to absorb sweat. To protect your feet, avoid shoes that are open-toed or open-heeled. If you have questions about what kinds of shoes and socks are best, talk to your healthcare team. Get Regular Exercise Regular exercise improves blood flow in your feet. It also increases foot strength and flexibility.Gentle exercises, like walking or riding a stationary bicycle, are best. You can also do special foot exercises. Just be sure to talk with your healthcare provider before starting any exercise program. Also mention if any exercise causes pain, redness, or other signs of foot problems. Note: If you have any kind of break in the skin of your foot or ankle, keep the area clean. Then call your doctor--especially if the area doesnt appear to be healing. [phone] [employer], [address] [place] [address], [place] [address]. All rights reserved. This information is not intended as a substitute for professional medical care. Always follow your healthcare professional's instructions. documented in this encounter Progress Notes * Ferny Sr DO - 12/03/2023 11:39 AM EDT SUBJECTIVE: Rama Alvarez is a 78 year old female. Chief Complaint Patient presents with Follow Up HPI: Patient is a 78 year old female with a history of HTN, DM type II, COPD, chronic hypoxic respiratory failure, Diabetic Neuropathy, Trigeminal Neuralgia, Hyperlipidemia, Lumbar Disc Disease, Sleep Apnea on BiPAP, bilateral carotid endarterectomy, CVA, bilateral knee replacement, and right Breast Cancer that is seen for follow up. No chest pain or shortness of breath are present. Weight is stable and appetite is good. Chronic low back pain is unchanged. She has difficulty with balance and ambulates with a cane. Patient has painful lump on left upper arm. Patient Active Problem List Diagnosis Trigeminal neuralgia Mixed rhinitis Irritable bowel syndrome ADVANCE DIRECTIVE INFORMATION SLEEP APNEA, UNSPECIFIED- BIPAP and oxygen Benign neoplasm of colon CEREBROVASCULAR DZ, POST-STROKE HTN, goal below 150/90 HX-MALIG SKIN MELANOMA - LM R neck 08/1009 Hyperlipidemia with target LDL less than 70 Disc disorder of lumbar region History of tobacco use Type 2 diabetes, HbA1C goal < 8% (HCC) Hx of nonmelanoma skin cancer Bronchiectasis, uncomplicated (HCC) Controlled substance agreement signed MEDICATION USE AGREEMENT Type 2 DM with CKD stage 3 and hypertension (HCC) Type 2 diabetes mellitus with diabetic peripheral angiopathy without gangrene (HCC) Type 2 diabetes mellitus with peripheral neuropathy (HCC) Tremor Malignant neoplasm of right breast in female, estrogen receptor positive (HCC) Primary open-angle glaucoma, bilateral, mild stage Folic acid deficiency B12 deficiency Vitamin D deficiency Chronic diastolic congestive heart failure (HCC) COPD, group A, by GOLD 2017 classification (HCC) Type 2 diabetes mellitus with diabetic peripheral angiopathy without gangrene, with long-term current use of insulin (HCC) Malignant neoplasm of upper-outer quadrant of right female breast (HCC) Osteoporosis without current pathological fracture assisted current use of aromatase inhibitor Current Outpatient Medications Medication Sig Dispense Refill VITAMIN C 500 MG PO TABS Take 1 Tablet by mouth daily at noon. fluticasone (FLONASE) 50 MCG/ACT nasal spray Administer 2 Sprays into each nostril 2 times a day. (Patient taking differently: Administer 2 Sprays into each nostril at bedtime.) 16 g 5 fexofenadine (JANNY ALLERGY) 180 MG Tablet Take 1 Tab by mouth daily. (Patient taking differently: Take 1 Tablet by mouth at bedtime.) BiPAP every night at bedtime. Vitamin B12 1000 MCG Oral Tablet Extended Release Take 1,000 mcg by mouth daily. Vitamin D High Potency 25 MCG (1000 UT) Oral Capsule (Cholecalciferol) Take 1 Capsule by mouth daily. GNP Calcium 1200 0835-0069 MG-UNIT Oral Tablet Chewable Take 1 Tablet by mouth daily. Aspirin EC 81 MG Oral Tablet Delayed Release Take 1 Tablet by mouth in the morning. Azelastine HCl 137 MCG/SPRAY Nasal Solution instill 2 sprays into each nostril twice a day (Patienttaking differently: 2 sprays once daily) 90 mL 0 Docusate Sodium 100 MG Oral Capsule (Colace) Take 2 Capsules by mouth daily. oxygen IN GAS 4 LPM bled through BIPAP during hours of sleep. 1 Each 0 ProAir HFA 108 (90 Base) MCG/ACT Inhalation Aerosol Solution Inhale 2 Puffs by mouth in the morningand 2 Puffs at noon and 2 Puffs in the evening and 2 Puffs before bedtime. 8 g 0 Furosemide 40 MG Oral Tablet (Lasix) take 1 tablet by mouth twice a day 180 Tablet 2 Empagliflozin 25 MG Oral Tablet (Jardiance) Take 1 Tablet by mouth in the morning. 100 Tablet 2 Letrozole 2.5 MG Oral Tablet (Femara) Take 1 Tablet by mouth in the morning. 100 Tablet 3 amLODIPine Besylate 2.5 MG Oral Tablet (Norvasc) Take 1 Tablet by mouth in the morning. 100 Tablet 3 DULoxetine HCl 60 MG Oral Capsule Delayed Release Particles (Cymbalta) Take 1 Capsule by mouth at bedtime. 100 Capsule 2 Potassium Chloride ER 10 MEQ Oral Tablet Extended Release Take 1 Tablet by mouth in the morning. 100 Tablet 2 Montelukast Sodium 10 MG Oral Tablet (Singulair) Take 1 Tablet by mouth every evening. 100 Tablet 3 Ozempic (1 MG/DOSE) 4 MG/3ML Subcutaneous Solution Pen-injector (Semaglutide (1 MG/DOSE)) Inject 1 mg under the skin once a week. 9 mL 3 Folic Acid 1 MG Oral Tablet Take 1 Tablet by mouth in the morning. 100 Tablet 3 Repatha SureClick 140 MG/ML Subcutaneous Solution Auto-injector (evolocumab) Inject 140 mg (1 pen) under the skin every 14 days. Remove from refrigerator 30 minutes prior to injection. 6 mL 3 Gabapentin 300 MG Oral Capsule (Neurontin) Take one capsule by mouth in the evening and two capsuleat bedtime 300 Capsule 3 Labetalol HCl 200 MG Oral Tablet (Normodyne) Take 1 Tablet by mouth in the morning and 1 Tablet before bedtime. 200 Tablet 3 Ezetimibe 10 MG Oral Tablet (Zetia) Take 1 Tablet by mouth in the morning. 100 Tablet 3 Lisinopril 40 MG Oral Tablet Take 1 Tablet by mouth in the morning. 100 Tablet 3 Insulin Glargine Solostar 100 UNIT/ML Subcutaneous Solution Pen-injector Inject 30 Units under the skin every evening. 30 mL 2 Amoxicillin 500 MG Oral Capsule (Amoxil) Take 4 Capsules by mouth once. One hour prior to appointment Melatonin 10 MG Oral Tablet Take 1 Tablet by mouth at bedtime. carBAMazepine ER 400 MG Oral Tablet Extended Release 12 Hour (Tegretol-Xr) Take 1 Tablet by mouth in the morning and 1 Tablet before bedtime. 200 Tablet 3 Atorvastatin Calcium 80 MG Oral Tablet (Lipitor) Take 1 Tablet by mouth in the morning. 100 Tablet 2 oxyCODONE-Acetaminophen 5-325 MG Oral Tablet (Percocet) Take 1 Tablet by mouth every 8 hours as needed for Pain, Severe. 90 Tablet 0 Mazree ULTRA SYSTEM W/DEVICE KIT test once daily; dx 250.00 1 Kit 0 CoNarrativeTOUCH ULTRASOFT LANCETS MISC test once daily; dx 250.00 1 Box 5 OneTouch Ultra Blue In Vitro Strip (Glucose Blood) TEST 3 X DAILY DX E11.9 100 Strip 5 Pen [place] 32G X 4 MM Use once daily with Lantus as directed 100 Each 3 No current facility-administered medications for this visit. The patient's medication list was reviewed and updated as needed. Past Medical History: Diagnosis Date Acute peptic ulcer, unspecified site, without mention of hemorrhage, perforation, or obstruction Allergic rhinitis Arthritis B12 deficiency 12/07/2021 Benign neoplasm of colon 05/01/2007 Hyperplastic polyps--repeat 1 year Benign neoplasm of colon 09/2008 hyperplastic polyps, recommend f/u in 2 years Benign neoplasm of colon 08/19/2011 polyps fair prep repeat in 1 yr,ADENOMATOUS POLYP Breast cancer (HCC) 04/2021 right breast low grade invasive lobular carcinoma Bronchiectasis, uncomplicated (HCC) 03/25/2017 Carotid Stenosis, infarct w/in 8 wks 03/05/2004 Modified per acute carotid stenosis protocol #10 Cataract CEREBROVASCULAR DZ, POST-STROKE 10/18/2008 Modified per CVA protocol #8 Diabetes mellitus ([facility]) Disc disorder of lumbar region 10/06/2012 Dyslipidemia, goal to be determined Folic acid deficiency 12/07/2021 Gastroesophageal reflux disease without esophagitis 02/02/2018 Glaucoma History of tobacco use Hx of nonmelanoma skin cancer 01/25/2015 Hx SCC L dorsal hand 08/2014 HX-MALIG SKIN MELANOMA - LM R neck 08/100901/10/2010 Hyperlipidemia LDL goal <70 Irritable bowel syndrome Pneumonia 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 SLEEP APNEA, UNSPECIFIED- BIPAP and oxygen 06/08/2008 02/04/11 -- BIPAP with 2 LPM Nocturnal ox, CPAP -- <89% 1:52:56 AHP Stroke ([facility]) Tremor 08/24/2019 Trigeminal neuralgia Type 2 diabetes mellitus with diabetic peripheral angiopathy without gangrene ([facility]) 12/15/2018 Type 2 DM with CKD stage 3 and hypertension ([facility]) 09/03/2018 Vitamin D deficiency 12/07/2021 Past Surgical History: Procedure Laterality Date ARTHROPLASTY KNEE TOTAL Left 12/22/2020 ARTHROPLASTY KNEE TOTAL Right 12/21/2021 BX LYMPH NODE DEEP AXIL Right 06/06/2021 BIOPSY LYMPH NODE DEEP AXILLARY OPEN performed by Tamika Goel MD at OR [facility] BX LYMPH NODE-SUPERFIC COLONOSCOPY THRU STOMA, W/BIOPSY 05/01/2007 Hyperplastic polyps--repeat 1 year COLONOSCOPY W/ LESION REMOVAL, SNARE 09/22/2008 hyperplastic polyps, recommend f/u in 2 years COLONOSCOPY W/ LESION REMOVAL, SNARE 08/19/2011 polypectomy x4, diverticulosis, external hemorrhoids, benign and adenomatous polyps, repeat colonoscopy in 3 years COLONOSCOPY, DIAGNOSTIC (RECTUM) 02/13/2015 adenomatous polyps, diverticulosis, repeat 5 yrs/[facility] COLONOSCOPY, DIAGNOSTIC (RECTUM) N/A 09/04/2022 multiple small and large mouthed diverticula sigmoid colon, small AVM/multiple polyps/biopsies showadenomatous polyps/recall 1 year/Colonoscopy/[place] EGD, FLEXIBLE, DIAGNOSTIC 08/14/2016 normal bx/[facility] IDENTIFY SENTINEL NODE, RADIOACTIVE TRACER Right 06/06/2021 INJECTION PROCEDURE FOR IDENTIFICATION SENTINEL NODE performed by Tamika Goel MD at OR [facility] INFORMATION 1990 Trigeminal Decompression 5th nerve INFORMATION Right 08/29/2015 08/29/2012 right temporal bx office procedure Dr.Michael Bullard MASTECTOMY, PARTIAL Right 06/06/2021 MASTECTOMY PARTIAL performed by Tamika Goel MD at OR [facility] RECONSTRUCT/REPLACE SHOULDER JOINT Right 11/14/2017 Dr. Yang REMOVE CATARACT, INSERT LENS PROSTH Right 04/10/2021 right EXTRACAPSULAR CATARACT REMOVAL WITH INTRAOCULAR LENS performed by Irvin Canchola MD at OR [facility] REMOVE CATARACT, INSERT LENS PROSTH Left 04/03/2021 left EXTRACAPSULAR CATARACT REMOVAL WITH INTRAOCULAR LENS performed by Irvin Canchola MD at OR [facility] REMOVE GALLBLADDER 1976 Cholecystectomy, Open REMOVE TONSILS & ADENOIDS, UNDER 12 THROMBOENDARECTOMY W/PATCH,NECK INCISION 02/23/2004 RCarotid endarterectomyDr Ramondelli THROMBOENDARECTOMY W/PATCH,NECK INCISION 02/27/2004 LCarotid endarterectomyDr Ramondelli US GUIDED BREAST BIOPSY RIGHT Right 04/25/2021 low grade invasive lobular carcinoma Review of patient's allergies indicates: Allergen Reactions Clarithromycin Other (Please comment) "Burning mouth" sensation. Review of Systems Constitutional: Positive for fatigue. Negative for appetite change and unexpected weight change. HENT: Negative for congestion, sore throat and trouble swallowing. Respiratory: Negative for cough, shortness of breath and wheezing. Cardiovascular: Positive for leg swelling. Negative for chest pain and palpitations. Gastrointestinal: Negative for abdominal pain, blood in stool, constipation, diarrhea, nausea and vomiting. Genitourinary: Negative for dysuria and hematuria. Musculoskeletal: Positive for back pain and gait problem. Neurological: Negative for dizziness, syncope and headaches. Psychiatric/Behavioral: Negative for confusion, decreased concentration and sleep disturbance. OBJECTIVE: BP 136/84 | Pulse 66 | Temp 36.3 C (97.4 F) (Tympanic) | Resp 16 | Ht 1.626 m (5' 4") | Wt 106.1 kg (233 lb 14.4 oz) | BMI 40.15 kg/m | BSA 2.19 m Physical Exam Vitals and nursing note reviewed. Constitutional: General: She is not in acute distress. Appearance: Normal appearance. She is not toxic-appearing. HENT: Head: Normocephalic and atraumatic. Cardiovascular: Rate and Rhythm: Normal rate and regular rhythm. Heart sounds: Normal heart sounds. No murmur heard. No gallop. Pulmonary: Effort: Pulmonary effort is normal. Breath sounds: Normal breath sounds. No wheezing, rhonchi or rales. Abdominal: General: Bowel sounds are normal. There is no distension. Palpations: Abdomen is soft. Tenderness: There is no abdominal tenderness. Musculoskeletal: Right lower leg: Edema present. Left lower leg: Edema present. Comments: Left upper arm moveable subcutaneous lesion that is painful Neurological: Mental Status: She is alert and oriented to person, place, and time. Mental status is at baseline. Gait: Gait abnormal. Psychiatric: Mood and Affect: Mood normal. Behavior: Behavior normal. Thought Content: Thought content normal. PLAN AND ASSESSMENT: Type 2 DM with CKD stage 3 and hypertension (HCC) (Primary) - HEMOGLOBIN A1C; Future; Expected date: 12/03/2023 - TSH WITH FREE T4 IF INDICATED; Future; Expected date: 12/03/2023 Continue Ozempic, Empaglifolzin, and Lantus Continue Labetalol, Lisinopril, and Amlodipine Malignant neoplasm of right breast in female, estrogen receptor positive, unspecified site of breast (HCC) Continue Letrozole per Hematology / Oncology Type 2 diabetes mellitus with diabetic peripheral angiopathy without gangrene, with long-term current use of insulin (HCC) - ALBUMIN / CREATININE RATIO, URINE; Future; Expected date: 12/03/2023 - DIABETES FOOT EXAM - DIABETES FOOT EXAM Continue Ozempic, Empaglifolzin, and Lantus COPD, group A, by GOLD 2017 classification ([facility]) Continue Proair Trigeminal neuralgia Continue Carbamazepine ER Obstructive sleep apnea syndrome Continue BIPAP CEREBROVASCULAR DZ, POST-STROKE Disc disorder of lumbar region Continue Gabapentin, Duloxetine, and Oxycodone Hyperlipidemia with target LDL less than 70 Continue Atorvastatin, Ezetimibe, and Repatha Vitamin D deficiency Chronic diastolic congestive heart failure (HCC) Continue Furosemide, Labetalol, Lisinopril, and Amlodipine Age-related osteoporosis without current pathological fracture B12 deficiency - VITAMIN B12; Future; Expected date: 12/03/2023 Folic acid deficiency - FOLIC ACID; Future; Expected date: 12/03/2023 Subcutaneous cyst - US EXTREMITY MSK; Future; Expected date: 12/03/2023 Left wrist pain - XR WRIST 3 OR MORE VIEWS I spent a total of 40-54 minutes (exact time 45 mins) on the date of service in preparation, delivery, and documentation of the care provided to Rama Alvarez excluding any time spent in the performance of separately billed services. Follow-up: Return in about 4 months (around 04/04/2024), or if symptoms worsen or fail to improve. |Check-out note: Schedule US left arm Ferny Sr DO 11:39 AM 12/03/2023 * Sasha Balderas LPN - 12/03/2023 10:54 AM EDT Socks and Shoes Removed for Annual Diabetic Foot Screening RIGHT FOOT: No Reddened, Cracking, Or Open Areas Noted. RIGHT Dorsalis Pedis Pulse: Palpable RIGHT Posterior Tibial Pulse: Palpable RIGHT Monofilament:Patient reports feeling monofilament pressure on plantar surface of foot Right great toe is bruised. Does have feeling however diminished. LEFT FOOT: No Reddened, Cracking or Open Areas Noted. LEFT Dorsalis Pedis Pulse: Palpable LEFT Posterior Tibial Pulse: Palpable LEFT Monofilament:Patient reports feeling monofilament pressure on plantar surface of foot Do you need diabetic shoes: N/A documented in this encounter Nursing Notes * Sasha Balderas LPN - 12/03/2023 10:52 AM EDT Forgot dominga on Friday. Patient presents for follow up, voices no complaints. Complaining of left arm pain. documented in this encounter Plan of Treatment Upcoming Encounters Date Type Department Care Team (Late st Contact Info) Description 12/26/2023 11:00 AM EDT Office Visit Cardiology, [facility] [address] [place] [address] [facility] Cardiology [facility] [address] [place] [address] 02/24/2024 11:00 AM EDT Laboratory Laboratory [facility] [address] [place] [phone] [facility] Lab [facility] [address] [place] [address] 02/24/2024 12:00 PM EDT Office Visit Hematology/Oncolog y [facility] [address] [place] [phone] Michelle Ruffin, CHE [address] [facility] [place] [address] 03/02/2024 2:30 PM EDT Hospital Encounter ENDO OSSC, Endoscopy Room [facility] [address] [place] [phone] Landon Kline MD [address] [place] [address] 03/02/2024 2:30 PM EDT - 03/02/2024 3:00 PM EDT Surgery ENDO OSSC, Endoscopy Room [facility] [address] [place] [phone] Landon Kline MD [address] [address] COLONOSCOPY FLEXIBLE PROXIMAL DIAGNOSTIC 04/02/2024 10:30 AM EDT Office Visit Sleep Disorders Ctr [facility] [address] [facility] [place] [phone] Mara Archibald CRNP [address] [facility] [address] 04/05/2024 10:40 AM EDT Office Visit Family Practice [address] [place] [address] [address] [place] [phone] Ferny Sr DO [address] [place] [address] 05/11/2024 11:15 AM EST Office Visit Dermatology [facility] 200 [facility] [place] [address] Kingston Huertas MD 200 [place] [address] Pending Results Name Type Priority Associated Diagnoses Date /Time HEMOGLOBIN A1C Lab Routine Type 2 DM with CKD stage 3 and hypertension (HCC) 12/03/2023 12:11 PM EDT TSH WITH FREE T4 IF INDICATED Lab Routine Type 2 DM with CKD stage 3 and hypertension (HCC) 12/03/2023 12:11 PM EDT VITAMIN B12 Lab Routine B12 deficiency 12/03/2023 12:11 PM EDT FOLIC ACID Lab Routine Folic acid deficiency 12/03/2023 12:11 PM EDT XR WRIST 3 OR MORE VIEWS Medical Imaging Routine Left wrist pain 12/03/2023 11:37 AM EDT Scheduled Orders Name Type Priority Associated Diagnoses Orde r Schedule ALBUMIN / CREATININE RATIO, URINE Lab Routine Type 2 diabetes mellitus with diabetic peripheral angiopathy without gangrene, with long-term current use of insulin (HCC) Expected: 12/03/2023, Expires: 12/02/2024 HEMOGLOBIN A1C Lab Routine Type 2 DM with CKD stage 3 and hypertension (HCC) Expected: 12/03/2023 (Approximate), Expires: 12/02/2024 TSH WITH FREE T4 IF INDICATED Lab Routine Type 2 DM with CKD stage 3 and hypertension (HCC) Expected: 12/03/2023 (Approximate), Expires: 12/02/2024 VITAMIN B12 Lab Routine B12 deficiency Expected: 12/03/2023 (Approximate), Expires: 12/02/2024 FOLIC ACID Lab Routine Folic acid deficiency Expected: 12/03/2023 (Approximate), Expires: 12/02/2024 US EXTREMITY MSK Medical Imaging Routine Subcutaneous cyst Expected: 12/03/2023, Expires: 01/02/2025 Scheduled Procedures Name Priority Associated Diagnoses Date/Ti [...] Screening 07/29/2024 07/29/2023 CKD HGB USE SMARTSET 42918 09/15/202409/15, 09/16/2023, 08/26/2023, Additional history exists CKD PHOS USE SMARTSET 75419 09/15/202409/04, 08/26/2023, 11/21/2022, Additional history exists O2 [...] D LEVEL ONCE IN A LIFETIME-USE SMARTSET# 60123 Completed 08/26/2023, 07/15/2022, 03/13/2022, Additional history exists [...] this encounter Medical Devices Implanted Type Area Portable Grinding Machine Operator Device Identifier Shelf Expiration Date Model / Serial / Lot Lens Intraoc 18.5 - [id number] - [id number] Implanted:Qty: 1 on 04/03/2021 by Irvin Canchola MD at [facility] Left: Eye [employer]USCH & LOMB 01/03/2026 [id number] / [id number] / [id number] Lens Intraoc 18.5 - [id number] - [id number] Implanted:Qty: 1 on 04/10/2021 by Irvin Canchola MD at OR [facility] Right: Eye BAUSCH & LOMB 01/03/2026 [id number] / [id number] / [id number] documented as of this encounter Visit Diagnoses Diagnosis Type 2 DM with CKD stage 3 and hypertension (HCC)- Primary Malignant neoplasm of right breast in female, estrogen receptor positive, unspecified site of breast ([facility]) Type 2 diabetes mellitus with diabetic peripheral angiopathy without gangrene, with long-term current use of insulin (HCC) COPD, group A, by GOLD 2017 classification (HCC) Trigeminal neuralgia Obstructive sleep apnea syndrome Obstructive sleep apnea (adult) (pediatric) CEREBROVASCULAR DZ, POST-STROKE Cerebral atherosclerosis Disc disorder of lumbar region Other and unspecified disc disorder of lumbar region Hyperlipidemia with target LDL less than 70 Other and unspecified hyperlipidemia Vitamin D deficiency Unspecified vitamin D deficiency Chronic diastolic congestive heart failure (HCC) Chronic diastolic heart failure Age-related osteoporosis without current pathological fracture Senile osteoporosis B12 deficiency Other B-complex deficiencies Folic acid deficiency Other B-complex deficiencies Subcutaneous cyst Sebaceous cyst Left wrist pain Pain in joint, forearm History of colonic polyps Personal history of colonic polyps documented in this encounter Care Teams Cashier Self Service Gasoline Relationship Specialty Start Date End Date Ferny Sr DO [address] [place] [address] PCP - General Internal Medicine 08/31/18 documented as of this encounter
--- OUTSIDE RECORDS SUMMARY | 2024-01-20 21:58 | External Medical Summary | Summary of Care ---
Author Name Unknown Organization [facility] Address [address] [place] [address] Phone [phone] Care Team Providers Care Stone Lathe Operator Name Role Phone Ferny Sr DO Primary Care Provider [phone] Reason for Visit * Reason Onset Date Comments Appointment 12/03/2023 Encounter Details Date Type Department Care Team (Late st Contact Info) Description 12/03/2023 Telephone Radiology, [facility] [address] [place] [address] Requisition, External Radiology [address] [place] [address] Appointment Allergies Active Allergy Reactions Criticality Noted Date Comments Clarithromycin Other (Please comment) Low 06200 1 "Burning mouth" sensation. documented as of this encounter (statuses as of 12/03/2023) Medications Medication Sig Dispensed Refills Start Date End Date Status KahnoodleUCH ULTRA SYSTEM W/DEVICE KITIndications:DM type 2, goal [...] 01/11/2020 Active Additional Information Patient taking differently:2 Fay Each NostrilHS, Indications: allergies, Reported on 08/13/2022 [...] by mouth daily. Active GNP Calcium 1200 5128-6516 MG-UNIT Oral Tablet Chewable Take 1 Tablet [...] HOSPITAL),Type 2 diabetes mellitus with peripheral neuropathy (HCC),Type [...] bedtime. 200 Tablet 3 10/28/2023 Active Pen Kimper 32G X 4 MMIndications:Type 2 diabetes mellitus [...] and oxygen 06/08 Overview: with 4 LPM [facility] Last Assessment & Plan: Compliant [...] Open-angle glaucoma 06/14/2021 10/16/19 22 Atherosclerosis of [place] ronary artery without angina pectoris 03/26/2021 [...] mRNA, LNP-s, No Pre serve, 2-Dose Series (Voxxter) 05/14/2021,09/21/2020,08/31/2020 COVID-19, LNP-s, No Preserve , Jose-sucrose, [...] 12/26/2023 11:00 AM EDT Office Visit Cardiology, [facility] [address] [place] [address] [facility] Cardiology [facility] [address] [place] [address] 02/24/2024 11:00 AM EDT Laboratory Laboratory [facility] [place] [address] [place] [phone] Naomi Lab [facility] [address] [place] [address] 02/24/2024 12:00 PM EDT Office Visit Hematology/Oncolog y [facility] [place] [address] [place] [phone] Michelle Ruffin CRNP [address] [place] [address] [place] [phone] 03/02/2024 2:30 PM EDT Hospital Encounter ENDO OSSC, Endoscopy Room [facility] [address] [place] [phone] Landon Kline MD [address] [place] [address] 03/02/2024 2:30 PM EDT - 03/02/2024 3:00 PM EDT Surgery ENDO O[facility]C, Endoscopy Room [facility] [address] [place] [phone] Landon Kline MD [address] [place] [address] COLONOSCOPY FLEXIBLE PROXIMAL DIAGNOSTIC 04/02/2024 10:30 AM EDT Office Visit Sleep Disorders Ctr [facility] [address] [place] [phone] Mara Archibald CRNP [address] [place] [address] 04/05/2024 10:40 AM EDT Office Visit Family Practice [address], [place] [address] [place] [phone] Ferny Sr DO [address] [place] [address] 05/11/2024 11:15 AM EST Office Visit Dermatology [facility] 200 [facility] [place], [place] [address] Kingston Huertas MD 200 [facility] [place], [place] [address] Scheduled Procedures Name Priority Associated Diagnoses Date/Ti [...] Screening 07/29/2024 07/29/2023 CKD HGB USE SMARTSET 01339 09/15/202409/15, 09/16/2023, 08/26/2023, Additional history exists CKD PHOS USE SMARTSET 01278 09/15/202409/04, 08/26/2023, 11/21/2022, Additional history exists O2 ASSESSMENT COMPLETED IN PAST YEAR FOR COPD 10/27/2024 10/28/2023 Colonoscopy 12/02/2024 12/03/2023, 0307/2022, 02/13/2015, Additional history [...] D LEVEL ONCE IN A LIFETIME-USE SMARTSET# 50119 Completed 08/26/2023, 07/15/2022, 03/13/2022, Additional history exists [...] this encounter Medical Devices Implanted Type Area Fur Finisher Device Identifier Shelf Expiration Date Model / Serial / Lot Lens Intraoc 18.5 - [id number] - [id number] Implanted:Qty: 1 on 04/03/2021 by Irvin Canchola MD at OR [facility] Left: Eye BAUSCH & LOMB 01/03/2026 [id number] / [id number] / [id number] Lens Intraoc 18.5 - [id number] - [id number] Implanted:Qty: 1 on 04/10/2021 by Irvin Canchola MD at OR [facility] Right: Eye BAUSCH & LOMB 01/03/2026 [id number] / [id number] / [id number] documented as of this encounter Care Teams Stone Lathe Operator Relationship Specialty Start Date End Date Ferny Sr DO [address] [place] [address] PCP - General Internal Medicine 08/31/18 documented as of this encounter
--- OUTSIDE RECORDS SUMMARY | 2024-01-20 21:58 | External Medical Summary | Summary of Care ---
Author Name Unknown Organization [facility] Address [address] [place] [address] Phone [phone] Care Team Providers Care Automotive Parts Interpreter Name Role Phone Ferny Sr DO Primary Care Provider [phone] Reason for Visit * Reason Comments Follow Up Encounter Details Date Type Department Care Team (Latest Contact Info) Description 12/03/2023 10:40 AM EDT Office Visit Family Practice [address] [facility] [address] [place] [address] Ferny Sr DO [address] [place] [address] Type 2 DM with CKD stage 3 and hypertension ([facility])*; Malignant neoplasm of right breast in female, estrogen receptor positive, unspecified site of breast ([facility]); Type 2 diabetes mellitus with diabetic peripheral angiopathy without gangrene, with long-term current use of insulin ([facility]); COPD, group A, by GOLD 2017 classification ([facility]); Trigeminal neuralgia; Obstructive sleep apnea syndrome; [...] Dispensed Refills Start Date End Date Status Five Below SYSTEM W/DEVICE KITIndications:DM type 2, goal A1c [...] 0 Active Additional Information Patient taking differently:2 [place] Each NostrilHS, Indications: allergies, Reported on 08/13/2022 [...] by mouth daily. Active GNP Calcium 1200 5161-4057 MG-UNIT Oral Tablet Chewable Take 1 Tablet [...] diabetes, HbA1C goal < 8% ([facility]) TEST 3 X DAILY DX E11.9 100 Strip 5 2 Active ProAir HFA 108 (90 Base) MCG/ACT Inhalation Aerosol SolutionIndications :Acute cough,COPD, group A, by GOLD 2017 classification ([facility]) Inhale 2 Puffs by mouth in [...] long-term current use of insulin ([facility]),Type 2 diabetes mellitus with peripheral neuropathy ([facility]),Type 2 DM with CKD stage 3 and hypertension ([facility]),Type 2 diabetes, HbA1C goal < 8% ([facility]) Take 1 Tablet by mouth in the morning. 100 Tablet 2 4 Active Letrozole 2.5 MG Oral Tablet (Femara)Indications :Malignant neoplasm of right breast in female, estrogen receptor positive, unspecified site of breast ([facility]) Take 1 Tablet by mouth in the morning. 100 Tablet 3 4 Active amLODIPine Besylate 2.5 MG Oral Tablet (Norvasc)Indication s:Type 2 DM with CKD stage 3 and hypertension ([facility]) Take 1 Tablet by mouth in the morning. 100 Tablet 3 4 Active DULoxetine HCl 60 MG Oral Capsule Delayed Release Particles (Cymbalta) Take 1 Capsule by mouth at bedtime. 100 Capsule 2 4 Active Potassium Chloride ER 10 MEQ Oral Tablet Extended ReleaseIndications: Chronic diastolic congestive heart failure ([facility]) Take 1 Tablet by mouth in the morning. 100 Tablet 2 4 Active Montelukast Sodium 10 MG Oral Tablet (Singulair)Indicati ons:Allergic rhinitis Take 1 Tablet by mouth every evening. 100 Tablet 3 4 Active Ozempic (1 MG/DOSE) 4 MG/3ML Subcutaneous Solution Pen-injector (Semaglutide (1 MG/DOSE))Indication s:Type 2 DM with CKD stage 3 and hypertension ([facility]) Inject 1 mg under the skin [...] than 70,PAD (peripheral artery disease) ([facility]) Take 1 Tablet by mouth in the morning. 100 Tablet 3 4 Active Lisinopril 40 MG Oral TabletIndications:H TN, goal below 130/80 Take 1 Tablet by mouth in the morning. 100 Tablet 3 4 Active Insulin Glargine Solostar 100 UNIT/ML Subcutaneous Solution Pen-injectorIndicat ions:Type 2 diabetes, HbA1C goal < 8% ([facility]),Type 2 DM with CKD stage 3 and hypertension ([facility]) Inject 30 Units under the skin [...] bedtime. 200 Tablet 3 4 Active Pen [place] 32G X 4 MMIndications:Type 2 diabetes mellitus [...] Osteoporosis without current pathological fractu re 08/27/2023 public works inspector current use of aromatase inhibitor Type 2 [...] Open-angle glaucoma 06/14/2021 10/16/19 22 Atherosclerosis of [place] co ronary artery without angina pectoris 03/26/2021 [...] mRNA, LNP-s, No Pre serve, 2-Dose Series (Xetal) 05/14/2021,09/21/2020,08/31/2020 COVID-19, LNP-s, No Preserve , Jose-sucrose, Ages 12+ (Pfizer) 12/11/2021 COVID-19, MRNA-LNP, 23-24, P F, 30 MCG/0.3 mL, 12 YRS AND ABOVE, IM (Incuron-Comirnat) 04/29/2023 Covid-19, Mrna, Lnp-s, Pf, B ivalent, [...] calluses yourself. Talk to your doctor or soft iron inspector (a doctor who specializes in foot care) [...] the area doesnt appear to be healing. [id number] [employer], [address] [place] [address], [place] [address]. All rights reserved. This information is not [...] breast (HCC) Osteoporosis without current pathological fracture [facility] current use of aromatase inhibitor Current Outpatient [...] Capsule by mouth daily. GNP Calcium 1200 4628-5597 MG-UNIT Oral Tablet Chewable Take 1 Tablet [...] needed for Pain, Severe. 90 Tablet 0 Ahaali ULTRA SYSTEM W/DEVICE KIT test once daily; dx 250.00 1 Kit 0 IencuentraTOUCH ULTRASOFT LANCETS MISC test once daily; dx 250.00 1 Box 5 OneTouch Ultra Blue In Vitro Strip (Glucose Blood) TEST 3 X DAILY DX E11.9 100 Strip 5 Pen [place] 32G X 4 MM Use once daily [...] CVA protocol #8 Diabetes mellitus ([facility]) Disc disorder of lumbar region 10/06/2012 Dyslipidemia, goal to be determined Folic acid deficiency 12/07/2021 Gastroesophageal reflux disease without esophagitis 02/02/2018 Glaucoma History of tobacco use Hx of nonmelanoma skin cancer 01/25/2015 Hx SCC L dorsal hand 08/2014 HX-MALIG SKIN MELANOMA - LM R neck 08/100901/10/2010 Hyperlipidemia LDL goal <70 Irritable bowel syndrome Pneumonia 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 SLEEP APNEA, UNSPECIFIED- BIPAP and oxygen 06/08/2008 02/04/11 -- BIPAP with 2 LPM Nocturnal ox, CPAP -- <89% 1:52:56 AHP Stroke ([facility]) Tremor 08/24/2019 Trigeminal neuralgia Type 2 diabetes mellitus with diabetic peripheral angiopathy without gangrene ([facility]) 12/15/2018 Type 2 DM with CKD stage 3 and hypertension ([facility]) 09/03/2018 Vitamin D deficiency 12/07/2021 Past Surgical History: Procedure Laterality Date ARTHROPLASTY KNEE TOTAL Left 12/22/2020 ARTHROPLASTY KNEE TOTAL Right 12/21/2021 BX LYMPH NODE DEEP AXIL Right 06/06/2021 BIOPSY LYMPH NODE DEEP AXILLARY OPEN performed by Tamika Goel MD at OR [facility] BX LYMPH NODE-SUPERFIC COLONOSCOPY THRU STOMA, W/BIOPSY 05/01/2007 Hyperplastic polyps--repeat 1 year COLONOSCOPY W/ LESION REMOVAL, SNARE 09/22/2008 hyperplastic polyps, recommend f/u in 2 years COLONOSCOPY W/ LESION REMOVAL, SNARE 08/19/2011 polypectomy x4, diverticulosis, external hemorrhoids, benign and adenomatous polyps, repeat colonoscopy in 3 years COLONOSCOPY, DIAGNOSTIC (RECTUM) 02/13/2015 adenomatous polyps, diverticulosis, repeat 5 yrs/[facility] COLONOSCOPY, DIAGNOSTIC (RECTUM) N/A 09/04/2022 multiple small and large mouthed diverticula sigmoid colon, small AVM/multiple polyps/biopsies showadenomatous polyps/recall 1 year/Colonoscopy/[place] EGD, FLEXIBLE, DIAGNOSTIC 08/14/2016 normal bx/[facility] IDENTIFY SENTINEL NODE, RADIOACTIVE TRACER Right 06/06/2021 INJECTION PROCEDURE FOR IDENTIFICATION SENTINEL NODE performed by Tamika Goel MD at OR [facility] INFORMATION 1990 Trigeminal Decompression 5th nerve INFORMATION Right 08/29/2015 08/29/2012 right temporal bx office procedure Dr.Michael Bullard MASTECTOMY, PARTIAL Right 06/06/2021 MASTECTOMY PARTIAL performed by Tamika Goel MD at OR [facility] RECONSTRUCT/REPLACE SHOULDER JOINT Right 11/14/2017 Dr. Yang REMOVE CATARACT, INSERT LENS PROSTH Right 04/10/2021 right EXTRACAPSULAR CATARACT REMOVAL WITH INTRAOCULAR LENS performed by Irvin Canchola MD at OR [facility] REMOVE CATARACT, INSERT LENS PROSTH Left 04/03/2021 left EXTRACAPSULAR CATARACT REMOVAL WITH INTRAOCULAR LENS performed by Irvin Canchola MD at OR [facility] REMOVE GALLBLADDER 1976 Cholecystectomy, Open REMOVE TONSILS [...] A, by GOLD 2017 classification ([facility]) Continue Proair Trigeminal neuralgia Continue Carbamazepine [...] left arm pain. documented in this encounter Miscellaneous Notes * Addendum Note - Sasha Balderas LPN - 12/03/2023 12:24 PM EDTAddended by: SASHA BALDERAS on: 12/03/2023 12:24 PM Modules accepted: Orders documented in this encounter Plan of Treatment Upcoming Encounters Date Type Department Care Team (Late st Contact Info) Description 12/26/2023 11:00 AM EDT Office Visit Cardiology, [facility] [address] [place] [address] [facility] Cardiology [place] [address] [place] [address] 02/24/2024 11:00 AM EDT Laboratory Laboratory [facility] [address] [place] [phone] [facility] 200 [facility] [place] [address] 02/24/2024 12:00 PM EDT Office Visit Hematology/Oncolog y [facility] [address] [place] [phone] Michelle Ruffin CRNP [address] [place] [address] 03/02/2024 2:30 PM EDT Hospital Encounter ENDO [facility], Endoscopy Room [facility] [address] [place] [phone] Landon Kline MD [address] [place] [address] 03/02/2024 2:30 PM EDT - 03/02/2024 3:00 PM EDT Surgery ENDO [facility], Endoscopy Room [facility] [address] [place] [phone] Landon Kline MD [address] [place] [address] COLONOSCOPY FLEXIBLE PROXIMAL DIAGNOSTIC 04/02/2024 10:30 AM EDT Office Visit Sleep Disorders Ctr [facility] 132 [facility] [place] [phone] Mara Archibald CRNP [address] [facility] [address] 04/05/2024 10:40 AM EDT Office Visit Family Practice [address] [place] [address] 293 [facility] [place] [address] Ferny Sr, [address] [place] [address] 05/11/2024 11:15 AM EST Office Visit Dermatology [facility] [address] [place] [address] Kingston Huertas MD 200 [place] [address] Pending Results Name Type Priority Associated Diagnoses Date /Time ALBUMIN / CREATININE RATIO, URINE Lab Routine Type 2 diabetes mellitus with diabetic peripheral angiopathy without gangrene, with long-term current use of insulin ([facility]) 12/03/2023 12:16 PM EDT HEMOGLOBIN A1C Lab Routine Type 2 DM with CKD stage 3 and hypertension ([facility]) 12/03/2023 12:11 PM EDT TSH WITH FREE T4 IF INDICATED Lab Routine Type 2 DM with CKD stage 3 and hypertension ([facility]) 12/03/2023 12:11 PM EDT VITAMIN B12 Lab [...] acid deficiency Expected: 12/03/2023 (Approximate), Expires: 12/02/2024 Scheduled Procedures Name Priority Associated Diagnoses Date/Ti [...] Screening 07/29/2024 07/29/2023 CKD HGB USE SMARTSET 13961 09/15/202409/154, 09/16/2023, 08/26/2023, Additional history exists CKD PHOS USE SMARTSET 31843 09/15/202409/04, 08/26/2023, 11/21/2022, Additional history exists O2 ASSESSMENT COMPLETED IN PAST YEAR FOR COPD 10/27/2024 10/28/2023 Colonoscopy 12/02/2024 12/03/2023, 07/2022, 02/13/2015, Additional history [...] D LEVEL ONCE IN A LIFETIME-USE SMARTSET# 08973 Completed 08/26/2023, 07/15/2022, 03/13/2022, Additional history exists [...] this encounter Medical Devices Implanted Type Area Nanoscience Technician Device Identifier Shelf Expiration Date Model / Serial / Lot Lens Intraoc 18.5 - [id number] - [id number] Implanted:Qty: 1 on 04/03/2021 by Irvin Canchola MD at OR [facility] Left: Eye BAUSCH & LOMB 01/03/2026 [id number] / [id number] / [id number] Lens Intraoc 18.5 - [id number] - [id number] Implanted:Qty: 1 on 04/10/2021 by Irvin Canchola MD at OR [facility] Right: Eye BAUSCH & LOMB 01/03/2026 [id number] / [id number] / [id number] documented as of this encounter Visit Diagnoses Diagnosis Type 2 DM with CKD stage 3 and hypertension (HCC)- Primary Malignant neoplasm of right breast in female, estrogen receptor positive, unspecified site of breast (HCC) Type 2 diabetes mellitus with diabetic peripheral angiopathy without gangrene, with long-term current use of insulin ([facility]) COPD, group A, by GOLD 2017 classification ([facility]) Trigeminal neuralgia Obstructive sleep apnea syndrome Obstructive [...] polyps documented in this encounter Care Teams Automotive Parts Interpreter Relationship Specialty Start Date End Date Ferny Sr DO [address] [place] [address] PCP - General Internal Medicine 08/31/18 documented as of this encounter
--- OUTSIDE RECORDS SUMMARY | 2024-01-20 21:58 | External Medical Summary | Summary of Care ---
Author Name Unknown Organization [facility] Address [address] [place] [address] Phone [phone] Care Team Providers Care Program Administrator Name Role Phone Ferny Sr DO Primary Care Provider [phone] Reason for Visit * Reason Onset Date Comments Appointment 12/03/2023 Encounter Details Date Type Department Care Team (Late st Contact Info) Description 12/03/2023 Telephone Radiology, [facility] [address] [place] [address] Requisition, External Radiology [address] [place] [address] Appointment Allergies Active Allergy Reactions Criticality Noted Date Comments Clarithromycin Other (Please comment) Low 06 1 "Burning mouth" sensation. documented as of this encounter (statuses as of 12/04/2023) Medications Medication Sig Dispensed Refills Start Date End Date Status Environmental Support SolutionsUCH ULTRA SYSTEM W/DEVICE KITIndications:DM type 2, goal [...] 01/11/2020 Active Additional Information Patient taking differently:2 [place] Each NostrilHS, Indications: allergies, Reported on 08/13/2022 [...] by mouth daily. Active GNP Calcium 1200 2470-8387 MG-UNIT Oral Tablet Chewable Take 1 Tablet [...] pe 2 diabetes, HbA1C goal < 8% ([facility]) TEST 3 X DAILY DX E11.9 100 Strip 5 06/11/2022 Active ProAir HFA 108 (90 Base) MCG/ACT Inhalation Aerosol SolutionIndications: Acute cough,COPD, group A, by GOLD 2017 classification ([facility]) Inhale 2 Puffs by mouth in the [...] gangrene, without long-term current use of insulin ([facility]),Type 2 diabetes mellitus with peripheral neuropathy (HCC),Type [...] LDL less than 70,PAD (peripheral artery disease) ([facility]) Take 1 Tablet by mouth in the morning. 100 Tablet 3 09/11/2023 Active Lisinopril 40 MG Oral TabletIndications:HT N, goal below 130/80 Take 1 Tablet by mouth in the morning. 100 Tablet 3 09/11/2023 Active Insulin Glargine Solostar 100 UNIT/ML Subcutaneous Solution Pen-injectorIndicati ons:Type 2 diabetes, HbA1C goal < 8% ([facility]),Type 2 DM with CKD stage 3 and hypertension ([facility]) Inject 30 Units under the skin every [...] bedtime. 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 Last Assessment & Plan: Compliant with BiPAP [...] Open-angle glaucoma 06/14/2021 10/16/19 22 Atherosclerosis of [place] co ronary artery without angina pectoris 03/26/2021 [...] mRNA, LNP-s, No Pre serve, 2-Dose Series ([employer]) 05/14/2021,09/21/2020,08/31/2020 COVID-19, LNP-s, No Preserve , Jose-sucrose, [...] 12/26/2023 11:00 AM EDT Office Visit Cardiology, [facility] [address] [place] [address] [facility] Cardiology [facility] [address] [place] [address] 02/24/2024 11:00 AM EDT Laboratory Laboratory [facility] [place] [address] [place] [phone] Naomi Lab [facility] [address] [place] [address] 02/24/2024 12:00 PM EDT Office Visit Hematology/Oncolog y [facility] [place] [address] [place] [address] Michelle Ruffin CRNP [address] [place] [address] [place] [phone] 03/02/2024 2:30 PM EDT Hospital Encounter ENDO [facility], Endoscopy Room [facility] [address] [place] [phone] Landon Kline MD [address] [place] [address] 03/02/2024 2:30 PM EDT - 03/02/2024 3:00 PM EDT Surgery ENDO [facility], Endoscopy Room [facility] [address] [place] [phone] Landon Kline MD [address] [place] [address] COLONOSCOPY FLEXIBLE PROXIMAL DIAGNOSTIC 04/02/2024 10:30 AM EDT Office Visit Sleep Disorders Ctr [facility] [address] [place] [phone] Mara Archibald CRNP [address] [place] [address] 04/05/2024 10:40 AM EDT Office Visit Family Practice 65 [facility] [place] [address] [place] [phone] Ferny Sr DO [address] [place] [address] 05/11/2024 11:15 AM EST Office Visit Dermatology [facility] 200 [facility] [place], [place] [address] Kingston Huertas MD 200 [facility] [place], [place] [address] Scheduled Procedures Name Priority Associated Diagnoses Date/Ti [...] Screening 07/29/2024 07/29/2023 CKD HGB USE SMARTSET 66740 09/15/202409/15, 09/16/2023, 08/26/2023, Additional history exists CKD PHOS USE SMARTSET 78652 09/15/202409/04, 08/26/2023, 11/21/2022, Additional history exists O2 [...] D LEVEL ONCE IN A LIFETIME-USE SMARTSET# 61800 Completed 08/26/2023, 07/15/2022, 03/13/2022, Additional history exists [...] this encounter Medical Devices Implanted Type Area Breast Trimmer Device Identifier Shelf Expiration Date Model / Serial / Lot Lens Intraoc 18.5 - [id number] - [id number] Implanted:Qty: 1 on 04/03/2021 by Irvin Canchola MD at OR [facility] Left: Eye BAUSCH & LOMB 01/03/2026 [id number] / [id number] / [id number] Lens Intraoc 18.5 - [id number] - [id number] Implanted:Qty: 1 on 04/10/2021 by Irvin Canchola MD at OR [facility] Right: Eye BAUSCH & LOMB 01/03/2026 [id number] / [id number] / [id number] documented as of this encounter Care Teams Program Administrator Relationship Specialty Start Date End Date Ferny Sr DO [address] [place] [address] PCP - General Internal Medicine 08/31/18 documented as of this encounter
--- OUTSIDE RECORDS SUMMARY | 2024-01-20 21:58 | External Medical Summary | Summary of Care ---
Author Name Unknown Organization [facility] Address [address] [place] [address] Phone [phone] Care Team Providers Care Airplane Electrician Name Role Phone Ferny Sr DO Primary Care Provider [phone] Reason for Visit * Reason Onset Date Comments Appointment 12/03/2023 Encounter Details Date Type Department Care Team (Late st Contact Info) Description 12/03/2023 Telephone Radiology, [facility] [address] [place] [address] Requisition, External Radiology [address] [place] [address] Appointment Allergies Active Allergy Reactions Criticality Noted Date Comments Clarithromycin Other (Please comment) Low 06200 1 "Burning mouth" sensation. documented as of this encounter (statuses as of 12/03/2023) Medications Medication Sig Dispensed Refills Start Date End Date Status PurswayUCH ULTRA SYSTEM W/DEVICE KITIndications:DM type 2, goal [...] 01/11/2020 Active Additional Information Patient taking differently:2 [place] Each NostrilHS, Indications: allergies, Reported on 08/13/2022 [...] by mouth daily. Active GNP Calcium 1200 9854-5299 MG-UNIT Oral Tablet Chewable Take 1 Tablet [...] bedtime. 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 Type [...] and oxygen 06/08 Overview: with 4 LPM [facility] Last Assessment & Plan: Compliant with BiPAP [...] Open-angle glaucoma 06/14/2021 10/16/19 22 Atherosclerosis of [place] co ronary artery without angina pectoris 03/26/2021 [...] mRNA, LNP-s, No Pre serve, 2-Dose Series (Dynamic Organic Light) 05/14/2021,09/21/2020,08/31/2020 COVID-19, LNP-s, No Preserve , Jose-sucrose, [...] 12/26/2023 11:00 AM EDT [facility] [address] [address] [facility] Cardiology [facility] [address] [address] 02/24/2024 11:00 AM EDT Laboratory Laboratory [facility] [place] [address] [place] [phone] Trish Salgado [address] [place] [address] 02/24/2024 12:00 PM EDT Office Visit Hematology/Oncolog y [facility] Naomi [place] [address] [place] [address] Michelle Ruffin CRNP [address] [place] [address] 03/02/2024 2:30 PM EDT Hospital Encounter ENDO [facility], Endoscopy Room [facility] [address] [place] [phone] Landon Kline MD [address] [place] [address] 03/02/2024 2:30 PM EDT - 03/02/2024 3:00 PM EDT Surgery ENDO [facility], Endoscopy Room [facility] [address] [place] [phone] Landon Kline MD [address] [place] [address] COLONOSCOPY FLEXIBLE PROXIMAL DIAGNOSTIC 04/02/2024 10:30 AM EDT Office Visit Sleep Disorders Ctr [facility] [place] [address] [place] [phone] Mara Archibald CRNP [address] [place] [address] 04/05/2024 10:40 AM EDT Office Visit Family Practice [address] [place] [address], [place] [address] [facility] [phone] Ferny Sr, 293 [facility], [place] [address] 05/11/2024 11:15 AM EST Office Visit Dermatology [facility] [place] [address] [place], [place] [address] Kingston Huertas MD [address] [facility] [address] [place], [place] [address] Scheduled Procedures Name Priority Associated Diagnoses Date/Ti [...] Screening 07/29/2024 07/29/2023 CKD HGB USE SMARTSET 13937 09/15/202409/15, 09/16/2023, 08/26/2023, Additional history exists CKD PHOS USE SMARTSET 30098 09/15/202409/04, 08/26/2023, 11/21/2022, Additional history exists O2 [...] D LEVEL ONCE IN A LIFETIME-USE SMARTSET# 10776 Completed 08/26/2023, 07/15/2022, 03/13/2022, Additional history exists [...] this encounter Medical Devices Implanted Type Area Call Worker Device Identifier Shelf Expiration Date Model / Serial / Lot Lens Intraoc 18.5 - [id number] - [id number] Implanted:Qty: 1 on 04/03/2021 by Irvin Canchola MD at OR [facility] Left: Eye BAUSCH & LOMB 01/03/2026 [id number] / [id number] / [id number] Lens Intraoc 18.5 - [id number] - [id number] Implanted:Qty: 1 on 04/10/2021 by Irvin Canchola MD at OR [facility] Right: Eye BAUSCH & LOMB 01/03/2026 [id number] / [id number] / [id number] documented as of this encounter Care Teams Airplane Electrician Relationship Specialty Start Date End Date Ferny Sr DO [address] [place] [address] PCP - General Internal Medicine 08/31/18 documented as of this encounter
--- OUTSIDE RECORDS SUMMARY | 2024-01-20 21:58 | External Medical Summary | Summary of Care ---
Author Name Unknown Organization [facility] Address [address] [place] [address] Phone [phone] Care Team Providers Care Personal Banking Assistant Name Role Phone Ferny Sr DO Primary Care Provider [phone] Reason for Visit * Reason Onset Date Comments Appointment 12/03/2023 Encounter Details Date Type Department Care Team (Late st Contact Info) Description 12/03/2023 Telephone Radiology, [facility] [address] [place] [address] Requisition, External Radiology [address] [place] [address] Appointment Allergies Active Allergy Reactions Criticality Noted Date Comments Clarithromycin Other (Please comment) Low 06 1 "Burning mouth" sensation. documented as of this encounter (statuses as of 12/04/2023) Medications Medication Sig Dispensed Refills Start Date End Date Status DevarioUCH ULTRA SYSTEM W/DEVICE KITIndications:DM type 2, goal [...] 01/11/2020 Active Additional Information Patient taking differently:2 [place] Each NostrilHS, Indications: allergies, Reported on 08/13/2022 [...] by mouth daily. Active GNP Calcium 1200 0958-9863 MG-UNIT Oral Tablet Chewable Take 1 Tablet [...] pe 2 diabetes, HbA1C goal < 8% ([facility]) TEST 3 X DAILY DX E11.9 100 Strip 5 06/11/2022 Active ProAir HFA 108 (90 Base) MCG/ACT Inhalation Aerosol SolutionIndications: Acute cough,COPD, group A, by GOLD 2017 classification ([facility]) Inhale 2 Puffs by mouth [...] gangrene, without long-term current use of insulin ([facility]),Type 2 diabetes mellitus with peripheral [...] LDL less than 70,PAD (peripheral artery disease) ([facility]) Take 1 Tablet by mouth in the morning. 100 Tablet 3 09/11/2023 Active Lisinopril 40 MG Oral TabletIndications:HT N, goal below 130/80 Take 1 Tablet by mouth in the morning. 100 Tablet 3 09/11/2023 Active Insulin Glargine Solostar 100 UNIT/ML Subcutaneous Solution Pen-injectorIndicati ons:Type 2 diabetes, HbA1C goal < 8% ([facility]),Type 2 DM with CKD stage 3 and hypertension ([facility]) Inject 30 Units under the [...] bedtime. 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 Type 2 [...] Open-angle glaucoma 06/14/2021 10/16/19 22 Atherosclerosis of telida co ronary artery without angina pectoris 03/26/2021 [...] mRNA, LNP-s, No Pre serve, 2-Dose Series ([employer]) 05/14/2021,09/21/2020,08/31/2020 COVID-19, LNP-s, No Preserve , Jose-sucrose, [...] AM EDT Office Visit Family Practice 65 [facility] 293 [facility], [place] [address] [place], Health Urologist [facility] Prac [address] [place] [address] 293 [facility], [place] [address] 12/08/2023 1:15 PM EDT Imaging Radiology [facility] [address] [facility] [place] [address] 12/26/2023 11:00 AM EDT Office Visit Cardiology, [facility] [address] [facility] [place] [address] [facility] Clinic Cardiology [facility] [address] [facility] [place] [address] 02/24/2024 11:00 AM EDT Laboratory Laboratory [facility] [place] [address] [place] [phone] [place], Lab [facility] [address] [facility] [place] [address] 02/24/2024 12:00 PM EDT Office Visit Hematology/Oncolog y [facility] Naomi [place] [address] [place] [phone] Michelle Ruffin CRNP [address] [place] [address] [place] [id number] 03/02/2024 2:30 PM EDT Hospital Encounter ENDO [facility], Endoscopy Room [facility] [address] [facility] [place] [phone] Landon Kline MD 132 [facility] [place] [address] 03/02/2024 2:30 PM EDT - 03/02/2024 3:00 PM EDT Surgery ENDO [facility], Endoscopy Room [facility] [address] [place] [address] Landon Kline MD [address] [place] [address] COLONOSCOPY FLEXIBLE PROXIMAL DIAGNOSTIC 04/02/2024 10:30 AM EDT Office Visit Sleep Disorders Ctr [facility] [phone] Mara Archibald CRNP [facility] [address] 04/05/2024 10:40 AM EDT Office Visit Family Practice [address] [place] [address] 293 [facility] [address] Ferny Sr, 293 [place] [address] 05/11/2024 11:15 AM EST Office Visit Dermatology [facility] 200 [facility] [place] [address] Kingston Huertas MD 200 [facility] [place] [address] Scheduled Procedures Name Priority Associated Diagnoses Date/Ti [...] Screening 07/29/2024 07/29/2023 CKD HGB USE SMARTSET 57478 09/15/202409/15, 09/16/2023, 08/26/2023, Additional history exists CKD PHOS USE SMARTSET 33174 09/15/202409/04, 08/26/2023, 11/21/2022, Additional history exists O2 [...] D LEVEL ONCE IN A LIFETIME-USE SMARTSET# 66662 Completed 08/26/2023, 07/15/2022, 03/13/2022, Additional history exists [...] this encounter Medical Devices Implanted Type Area Pharmacist Manager Device Identifier Shelf Expiration Date Model / Serial / Lot Lens Intraoc 18.5 - [id number] - [id number] Implanted:Qty: 1 on 04/03/2021 by Irvin Canchola MD at OR [facility] Left: Eye BAUSCH & LOMB 01/03/2026 [id number] / [id number] / [id number] Lens Intraoc 18.5 - [id number] - [id number] Implanted:Qty: 1 on 04/10/2021 by Irvin Canchola MD at OR [facility] Right: Eye BAUSCH & LOMB 01/03/2026 [id number] / [id number] / [id number] documented as of this encounter Care Teams Personal Banking Assistant Relationship Specialty Start Date End Date Ferny Sr DO [address] [place] [address] PCP - General Internal Medicine 08/31/18 documented as of this encounter
--- OUTSIDE RECORDS SUMMARY | 2024-01-20 21:58 | External Medical Summary | Summary of Care ---
Author Name Unknown Organization [facility] Address [address] [place] [address] Phone [phone] Care Team Providers Care Stave Hewer Name Role Phone Disha Sr DO Primary Care Provider [phone] Reason for Visit * Reason Comments Follow Up Encounter Details Date Type Department Care Team (Latest Contact Info) Description 12/03/2023 10:40 AM EDT Office Visit Family Practice 65 [facility] [address] [place] [address] Disha Sr DO [address] [place] [address] Type 2 DM with CKD stage 3 and hypertension ([facility])*; Malignant neoplasm of right breast in female, estrogen receptor positive, unspecified site of breast ([facility]); Type 2 diabetes mellitus with diabetic peripheral angiopathy without gangrene, with long-term current use of insulin ([facility]); COPD, group A, by GOLD 2017 classification ([facility]); Trigeminal neuralgia; Obstructive sleep apnea syndrome; CEREBROVASCULAR [...] Dispensed Refills Start Date End Date Status Suvaco SYSTEM W/DEVICE KITIndications:DM type 2, goal A1c [...] 0 Active Additional Information Patient taking differently:2 [place] Each NostrilHS, Indications: allergies, Reported on 08/13/2022 [...] by mouth daily. Active GNP Calcium 1200 4970-0668 MG-UNIT Oral Tablet Chewable Take 1 Tablet [...] ype 2 diabetes, HbA1C goal < 8% ([facility]) TEST 3 X DAILY DX E11.9 100 Strip 5 2 Active ProAir HFA 108 (90 Base) MCG/ACT Inhalation Aerosol SolutionIndications :Acute cough,COPD, group A, by GOLD 2017 classification ([facility]) Inhale 2 Puffs by [...] gangrene, without long-term current use of insulin ([facility]),Type 2 diabetes mellitus with peripheral neuropathy ([facility]),Type 2 DM with CKD stage 3 and hypertension ([facility]),Type 2 diabetes, HbA1C goal < 8% ([facility]) Take 1 Tablet by mouth in the morning. 100 Tablet 2 4 Active Letrozole 2.5 MG Oral Tablet (Femara)Indications :Malignant neoplasm of right breast in female, estrogen receptor positive, unspecified site of breast ([facility]) Take 1 Tablet by mouth in the morning. 100 Tablet 3 4 Active amLODIPine Besylate 2.5 MG Oral Tablet (Norvasc)Indication s:Type 2 DM with CKD stage 3 and hypertension ([facility]) Take 1 Tablet by mouth in the morning. 100 Tablet 3 4 Active DULoxetine HCl 60 MG Oral Capsule Delayed Release Particles (Cymbalta) Take 1 Capsule by mouth at bedtime. 100 Capsule 2 4 Active Potassium Chloride ER 10 MEQ Oral Tablet Extended ReleaseIndications: Chronic diastolic congestive heart failure ([facility]) Take 1 Tablet by mouth in the morning. 100 Tablet 2 4 Active Montelukast Sodium 10 MG Oral Tablet (Singulair)Indicati ons:Allergic rhinitis Take 1 Tablet by mouth every evening. 100 Tablet 3 4 Active Ozempic (1 MG/DOSE) 4 MG/3ML Subcutaneous Solution Pen-injector (Semaglutide (1 MG/DOSE))Indication s:Type 2 DM with CKD stage 3 and hypertension ([facility]) Inject 1 mg under the [...] LDL less than 70,PAD (peripheral artery disease) ([facility]) Take 1 Tablet by mouth in the morning. 100 Tablet 3 4 Active Lisinopril 40 MG Oral TabletIndications:H TN, goal below 130/80 Take 1 Tablet by mouth in the morning. 100 Tablet 3 4 Active Insulin Glargine Solostar 100 UNIT/ML Subcutaneous Solution Pen-injectorIndicat ions:Type 2 diabetes, HbA1C goal < 8% ([facility]),Type 2 DM with CKD stage 3 and hypertension ([facility]) Inject 30 Units under [...] bedtime. 200 Tablet 3 4 Active Pen [place] 32G X 4 MMIndications:Type 2 diabetes mellitus [...] and oxygen 06/08 Overview: with 4 LPM [facility] Last Assessment & Plan: Compliant [...] Open-angle glaucoma 06/14/2021 10/16/19 22 Atherosclerosis of lum[place] co ronary artery without angina pectoris 03/26/2021 [...] mRNA, LNP-s, No Pre serve, 2-Dose Series (Mag[employer]a) 05/14/2021,09/21/2020,08/31/2020 COVID-19, LNP-s, No Preserve , Jose-sucrose, Ages 12+ (Pfizer) 12/11/2021 COVID-19, MRNA-LNP, 23-24, P F, 30 MCG/0.3 mL, 12 YRS AND ABOVE, IM (H[employer]Co-Comirnat) 04/29/2023 Covid-19, Mrna, Lnp-s, Pf, B ivalent, [...] this encounter Patient Instructions * Patient Instructions* Andrey Yamile, [place] - 12/03/2023 10:56 AM EDT Diabetes: [...] calluses yourself. Talk to your doctor or seamless tube mill operator (a doctor who specializes in foot care) [...] the area doesnt appear to be healing. [id number] [employer], [address] [place] [address], [place] [address]. All rights reserved. This information is not intended as a substitute for professional medical care. Always follow your healthcare professional's instructions. documented in this encounter Progress Notes * Disha Sr DO - 12/03/2023 11:39 AM EDT [...] breast (HCC) Osteoporosis without current pathological fracture nursing home current use of aromatase inhibitor Current Outpatient [...] Capsule by mouth daily. GNP Calcium 1200 3083-9258 MG-UNIT Oral Tablet Chewable Take 1 Tablet [...] needed for Pain, Severe. 90 Tablet 0 [employer] ULTRA SYSTEM W/DEVICE KIT test once daily; dx 250.00 1 Kit 0 ConnectFuTOUCH ULTRASOFT LANCETS MISC test once daily; dx 250.00 1 Box 5 OneTouch Ultra Blue In Vitro Strip (Glucose Blood) TEST 3 X DAILY DX E11.9 100 Strip 5 Pen Oakdale 32G X 4 MM Use once daily [...] Modified per CVA protocol #8 Diabetes mellitus ([facility]) Disc disorder of lumbar region 10/06/2012 Dyslipidemia, goal to be determined Folic acid deficiency 12/07/2021 Gastroesophageal reflux disease without esophagitis 02/02/2018 Glaucoma History of tobacco use Hx of nonmelanoma skin cancer 01/25/2015 Hx SCC L dorsal hand 08/2014 HX-MALIG SKIN MELANOMA - LM R neck 08/100901/10/2010 Hyperlipidemia LDL goal <70 Irritable bowel syndrome Pneumonia Pulmonary histoplasmosis ([facility]) 11/23/2012 SLEEP APNEA, UNSPECIFIED- BIPAP and oxygen 06/08/2008 02/04/11 -- BIPAP with 2 LPM Nocturnal ox, CPAP -- <89% 1:52:56 AHP Stroke ([facility]) Tremor 08/24/2019 Trigeminal neuralgia Type 2 diabetes mellitus with diabetic peripheral angiopathy without gangrene ([facility]) 12/15/2018 Type 2 DM with CKD stage 3 and hypertension ([facility]) 09/03/2018 Vitamin D deficiency 12/07/2021 Past Surgical History: Procedure Laterality Date ARTHROPLASTY KNEE TOTAL Left 12/22/2020 ARTHROPLASTY KNEE TOTAL Right 12/21/2021 BX LYMPH NODE DEEP AXIL Right 06/06/2021 BIOPSY LYMPH NODE DEEP AXILLARY OPEN performed by Tamika Goel MD at OR [facility] BX LYMPH NODE-SUPERFIC COLONOSCOPY THRU STOMA, W/BIOPSY 05/01/2007 Hyperplastic polyps--repeat 1 year COLONOSCOPY W/ LES[place] REMOVAL, SNARE 09/22/2008 hyperplastic polyps, recommend f/u in 2 years COLONOSCOPY W/ LESION REMOVAL, SNARE 08/19/2011 polypectomy x4, diverticulosis, external hemorrhoids, benign and adenomatous polyps, repeat colonoscopy in 3 years COLONOSCOPY, DIAGNOSTIC (RECTUM) 02/13/2015 adenomatous polyps, diverticulosis, repeat 5 yrs/[facility] COLONOSCOPY, DIAGNOSTIC (RECTUM) N/A 09/04/2022 multiple small and large mouthed diverticula sigmoid colon, small AVM/multiple polyps/biopsies showadenomatous polyps/recall 1 year/Colonoscopy/[place] EGD, FLEXIBLE, DIAGNOSTIC 08/14/2016 normal bx/[facility] IDENTIFY SENTINEL NODE, RADIOACTIVE TRACER Right 06/06/2021 INJECTION PROCEDURE FOR IDENTIFICATION SENTINEL NODE performed by Tamika Goel MD at OR [facility] INFORMATION 1990 Trigeminal Decompression 5th nerve INFORMATION Right 08/29/2015 08/29/2012 right temporal bx office procedure Dr.Michael Bullard MASTECTOMY, PARTIAL Right 06/06/2021 MASTECTOMY PARTIAL performed by Tamika Goel MD at OR [facility] RECONSTRUCT/REPLACE SHOULDER JOINT Right 11/14/2017 Dr. Yang REMOVE CATARACT, INSERT LENS PROSTH Right 04/10/2021 right EXTRACAPSULAR CATARACT REMOVAL WITH INTRAOCULAR LENS performed by Irvin Canchola MD at OR [facility] REMOVE CATARACT, INSERT LENS PROSTH Left 04/03/2021 left EXTRACAPSULAR CATARACT REMOVAL WITH INTRAOCULAR LENS performed by Irvin Canchola MD at OR [facility] REMOVE GALLBLADDER 1976 Cholecystectomy, Open REMOVE TONSILS & ADENOIDS, UNDER 12 THROMBOENDARECTOMY W/PATCH,NECK INCISION 02/23/2004 RCar[address] end[address]Dr Ramroseann THROMBOENDARECTOMY W/PATCH,NECK INCISION 02/27/2004 L[address] end[address]rectomyDr Ramroseann US GUIDED BREAST BIOPSY RIGHT Right 04/25/2021 [...] COPD, group A, by GOLD 2017 classification ([facility]) Continue Proair Trigeminal neuralgia Continue Carbamazepine ER [...] improve. |Check-out note: Schedule US left arm Disha Sr DO 11:39 AM 12/03/2023 * Sasha [...] Addendum Note - Disha Sr DO - 12/04/2023 8:53 AM EDTAddended by: DISHA SR on: 12/04/2023 08:53 AM Modules accepted: Orders * Addendum Note - Sasha Balderas LPN - 12/03/2023 12:24 PM EDTAddended by: SASHA BALDERAS on: 12/03/2023 12:24 PM Modules accepted: Orders documented in this encounter Plan of Treatment Upcoming Encounters Date Type Department Care Team (Late st Contact Info) Description 12/26/2023 11:00 AM EDT [facility] [address] [facility] Cardiology [facility] 132 [facility] [place] [address] 02/24/2024 11:00 AM EDT Laboratory Laboratory [place] [address] [place] [phone] Trish Salgado [place] [address] [address] [place] [address] 02/24/2024 12:00 PM EDT Office Visit Hematology/Oncolog y [facility] [place] [address] [place] [phone] Michelle Ruffin CRNP [address] [place] [address] [place] [address] 03/02/2024 2:30 PM EDT Hospital Encounter ENDO [facility], Endoscopy Room [facility] [address] [place] [phone] Landon Kline MD [address] [place] [address] 03/02/2024 2:30 PM EDT - 03/02/2024 3:00 PM EDT Surgery ENDO [facility], Endoscopy Room [facility] [address] [place] [address] Landon Kline MD [address] [place] [address] COLONOSCOPY FLEXIBLE PROXIMAL DIAGNOSTIC 04/02/2024 10:30 AM EDT [facility] [place] [phone] Mara Archibald CRNP [address] [facility] [place] [address] 04/05/2024 10:40 AM EDT Office Visit Family Practice [address] [place] [address] 293 [place] [address] Disha Sr DO [address] [place] [address] 05/11/2024 11:15 AM EST Office Visit Dermatology [facility] [address] [place] [address] Kingston Huertas MD [address] [place] [address] Pending Results Name Type Priority Associated Diagnoses Date /Time XR WRIST 3 OR MORE VIEWS Medical Imaging Routine Left wrist pain 12/03/2023 1:12 PM EDT Scheduled Orders Name Type Priority Associated Diagnoses Orde r Schedule US EXTREMITY, NON-VASCULAR LIMITED Medical Imaging Routine Subcutaneous cyst Expected: 12/04/2023, Expires: 01/02/2025 Scheduled Procedures Name Priority Associated [...] Screening 07/29/2024 07/29/2023 CKD HGB USE SMARTSET 74968 09/15/202409/15, 09/16/2023, 08/26/2023, Additional history exists CKD PHOS USE SMARTSET 18212 09/15/202409/04, 08/26/2023, 11/21/2022, Additional history exists O2 [...] D LEVEL ONCE IN A LIFETIME-USE SMARTSET# 15773 Completed 08/26/2023, 07/15/2022, 03/13/2022, Additional history exists [...] this encounter Medical Devices Implanted Type Area Engine Testing Supervisor Device Identifier Shelf Expiration Date Model / Serial / Lot Lens Intraoc 18.5 - [id number] - [id number] Implanted:Qty: 1 on 04/03/2021 by Irvin Canchola MD at OR [facility] Left: Eye BAUSCH & LOMB 01/03/2026 [id number] / [id number] / [id number] Lens Intraoc 18.5 - [id number] - [id number] Implanted:Qty: 1 on 04/10/2021 by Irvin Canchola MD at OR [facility] Right: Eye BAUSCH & LOMB 01/03/2026 [id number] / [id number] / [id number] documented as of this encounter Procedures Procedure Name Priority Date/Time Associated Diagnosis Comments ALBUMIN / CREATININE RATIO, URINE Routine 12/03/2023 12:16 PM EDT Type 2 diabetes mellitus with diabetic peripheral angiopathy without gangrene, with long-term current use of insulin (HCC) TSH WITH FREE T4 IF INDICATED Routine 12/03/2023 12:11 PM EDT Type 2 DM with CKD stage 3 and hypertension (HCC) HEMOGLOBIN A1C Routine 12/03/2023 12:11 PM EDT Type 2 DM with CKD stage 3 and hypertension (HCC) FOLIC ACID Routine 12/03/2023 12:11 PM EDT Folic acid deficiency VITAMIN B12 Routine 12/03/2023 12:11 PM EDT B12 deficiency documented in this encounter Results * ALBUMIN / CREATININE RATIO, URINE (12/03/2023 12:16 PM EDT) Albumin, Random Urine <1.20 mg/dL 12/03/2023 11:49 PM EDT LAB[facility]ATORY [facility] Creatinine, Random Urine 92 mg/dL 12/03/2023 11:49 PM EDT [facility] Albumin / Creatinine Ratio, Urine <13 <30 mg/g Creat 12/03/2023 11:49 PM EDT [facility] Urine Urine specimen / Unknown Non-blood Collection / Unknown 12/03/2023 12:16 PM EDT 12/03/2023 12:16 PM EDT Narrative [facility] - 12/03/2023 11:49 PM EDT Normal: <30 mg/g creatinine High: 30-300 mg/g creatinine Very High: >300 mg/g creatinine Nephrotic: >2200 mg/g creatinine Disha Sr DO LAB URINE ORDERABLES [facility]ORY [facility] [address] [place] [address] * FOLIC ACID (12/03/2023 12:11 PM EDT) Folic Acid >20.0 >4.5 ng/mL 12/04/2023 5:53 AM EDT [facility] Blood Venous blood specimen / Unknown Venipuncture / Unknown 12/03/2023 12:11 PM EDT 12/03/2023 12:11 PM EDT Disha Sr DO LAB BLOOD ORDERABLES Performing Organization Address [facility] Co de Phone Number LABORATORY [facility] [address] [place] [address] * (ABNORMAL) VITAMIN B12 (12/03/2023 12:11 PM EDT) Pathologist [facility] Vitamin B12 1,485(H) 232 - 1,245 pg/mL 12/04/2023 5:53 AM EDT [facility] Blood Venous blood specimen / Unknown Venipuncture / Unknown 12/03/2023 12:11 PM EDT 12/03/2023 12:11 PM EDT Disha Sr DO LAB BLOOD ORDERABLES Performing Organization Address [facility] de Phone Number LABORATORY [facility] [address] [place] [address] * TSH WITH FREE T4 IF INDICATED (12/03/2023 12:11 PM EDT) [facility] TSH 2.75 0.27 - 4.20 uIU/mL 12/04/2023 5:53 AM EDT LAB[facility]ORY [facility] Blood Venous blood specimen / Unknown Venipuncture / Unknown 12/03/2023 12:11 PM EDT 12/03/2023 12:11 PM EDT Disha Rosas Remberto MONROY LAB BLOOD ORDERABLES Performing Organization Address [facility] de Phone Number LAB[facility]ATORY [facility] [address] [place] [address] * (ABNORMAL) HEMOGLOBIN A1C (12/03/2023 12:11 PM EDT) [facility] Hemoglobin A1C 6.3(H) 4.0 - 5.6 % 12/04/2023 3:46 AM EDT LABORATORY [facility] Comment:The use of HbA1c to monitor glycemic status is based on normal hemoglobin and HbA composition. This test should not be used in patients with abnormal hemoglobin that affects the half life of the red blood cell or the in vivo glycation rates. Estimated Average Glucose 134(H) <126 mg/dL 12/04/2023 3:46 AM EDT [facility]ORY [facility] Blood Venous blood specimen / Unknown Venipuncture / Unknown 12/03/2023 12:11 PM EDT 12/03/2023 12:11 PM EDT Disha Sr DO LAB BLOOD ORDERABLES LAB[facility]ORY [facility] [address] [place] [address] documented in this encounter Visit Diagnoses Diagnosis Type 2 [...] polyps documented in this encounter Care Teams Stave Hewer Relationship Specialty Start Date End Date Disha Sr DO [address] [place] [address] PCP - General Internal Medicine 08/31/18 documented as of this encounter
--- OUTSIDE RECORDS SUMMARY | 2024-01-20 21:58 | External Medical Summary | Summary of Care ---
Author Name Unknown Organization [facility] Address [address] [place] [address] Phone [phone] Care Team Providers Care Underground Truck Operator Name Role Phone Ferny Sr DO Primary Care Provider [phone] Reason for Visit * Reason Comments Follow Up Encounter Details Date Type Department Care Team (Latest Contact Info) Description 12/03/2023 10:40 AM EDT Office Visit Family Practice 65 [facility] [address] [place] [address] Ferny Sr DO [address] [place] [address] Type 2 DM with CKD stage 3 and hypertension ([facility])*; Malignant neoplasm of right breast in female, estrogen receptor positive, unspecified site of breast ([facility]); Type 2 diabetes mellitus with diabetic peripheral angiopathy without gangrene, with long-term current use of insulin ([facility]); COPD, group A, by GOLD 2017 classification ([facility]); Trigeminal neuralgia; Obstructive sleep apnea syndrome; CEREBROVASCULAR [...] Dispensed Refills Start Date End Date Status Whirlpool SYSTEM W/DEVICE KITIndications:DM type 2, goal A1c [...] 0 Active Additional Information Patient taking differently:2 [place] Each NostrilHS, Indications: allergies, Reported on 08/13/2022 [...] by mouth daily. Active GNP Calcium 1200 3233-8964 MG-UNIT Oral Tablet Chewable Take 1 Tablet [...] ype 2 diabetes, HbA1C goal < 8% ([facility]) TEST 3 X DAILY DX E11.9 100 Strip 5 2 Active ProAir HFA 108 (90 Base) MCG/ACT Inhalation Aerosol SolutionIndications :Acute cough,COPD, group A, by GOLD 2017 classification ([facility]) Inhale 2 Puffs by mouth in the [...] gangrene, without long-term current use of insulin ([facility]),Type 2 diabetes mellitus with peripheral neuropathy ([facility]),Type 2 DM with CKD stage 3 and hypertension ([facility]),Type 2 diabetes, HbA1C goal < 8% ([facility]) Take 1 Tablet by mouth in the morning. 100 Tablet 2 4 Active Letrozole 2.5 MG Oral Tablet (Femara)Indications :Malignant neoplasm of right breast in female, estrogen receptor positive, unspecified site of breast ([facility]) Take 1 Tablet by mouth in the morning. 100 Tablet 3 4 Active amLODIPine Besylate 2.5 MG Oral Tablet (Norvasc)Indication s:Type 2 DM with CKD stage 3 and hypertension ([facility]) Take 1 Tablet by mouth in the morning. 100 Tablet 3 4 Active DULoxetine HCl 60 MG Oral Capsule Delayed Release Particles (Cymbalta) Take 1 Capsule by mouth at bedtime. 100 Capsule 2 4 Active Potassium Chloride ER 10 MEQ Oral Tablet Extended ReleaseIndications: Chronic diastolic congestive heart failure ([facility]) Take 1 Tablet by mouth in the morning. 100 Tablet 2 4 Active Montelukast Sodium 10 MG Oral Tablet (Singulair)Indicati ons:Allergic rhinitis Take 1 Tablet by mouth every evening. 100 Tablet 3 4 Active Ozempic (1 MG/DOSE) 4 MG/3ML Subcutaneous Solution Pen-injector (Semaglutide (1 MG/DOSE))Indication s:Type 2 DM with CKD stage 3 and hypertension ([facility]) Inject 1 mg under the skin once [...] LDL less than 70,PAD (peripheral artery disease) ([facility]) Take 1 Tablet by mouth in the morning. 100 Tablet 3 4 Active Lisinopril 40 MG Oral TabletIndications:H TN, goal below 130/80 Take 1 Tablet by mouth in the morning. 100 Tablet 3 4 Active Insulin Glargine Solostar 100 UNIT/ML Subcutaneous Solution Pen-injectorIndicat ions:Type 2 diabetes, HbA1C goal < 8% ([facility]),Type 2 DM with CKD stage 3 and hypertension ([facility]) Inject 30 Units under the skin every [...] bedtime. 200 Tablet 3 4 Active Pen [place] 32G X 4 MMIndications:Type 2 diabetes mellitus [...] Osteoporosis without current pathological fractu re 08/27/2023 intermission coordinator current use of aromatase inhibitor Type 2 [...] Open-angle glaucoma 06/14/2021 10/16/19 22 Atherosclerosis of [place] co ronary artery without angina pectoris 03/26/2021 [...] mRNA, LNP-s, No Pre serve, 2-Dose Series ([employer]ons) 05/14/2021,09/21/2020,08/31/2020 COVID-19, LNP-s, No Preserve , Jose-sucrose, Ages 12+ (Pfizer) 12/11/2021 COVID-19, MRNA-LNP, 23-24, P F, 30 MCG/0.3 mL, 12 YRS AND ABOVE, IM ([employer]ir[employer]) 04/29/2023 Covid-19, Mrna, Lnp-s, Pf, B ivalent, [...] calluses yourself. Talk to your doctor or naval gunfire spotter (a doctor who specializes in foot care) [...] the area doesnt appear to be healing. [id number] [employer], [address] [place] [address], [place] [address]. All rights reserved. This information is not [...] breast (HCC) Osteoporosis without current pathological fracture correction current use of aromatase inhibitor Current Outpatient [...] Capsule by mouth daily. GNP Calcium 1200 6395-0859 MG-UNIT Oral Tablet Chewable Take 1 Tablet [...] needed for Pain, Severe. 90 Tablet 0 Origami Logic ULTRA SYSTEM W/DEVICE KIT test once daily; dx 250.00 1 Kit 0 ARE Telecom & WindTOUCH ULTRASOFT LANCETS MISC test once daily; dx 250.00 1 Box 5 OneTouch Ultra Blue In Vitro Strip (Glucose Blood) TEST 3 X DAILY DX E11.9 100 Strip 5 Pen Rayle 32G X 4 MM Use once daily [...] Modified per CVA protocol #8 Diabetes mellitus ([facility]) Disc disorder of lumbar region 10/06/2012 Dyslipidemia, goal to be determined Folic acid deficiency 12/07/2021 Gastroesophageal reflux disease without esophagitis 02/02/2018 Glaucoma History of tobacco use Hx of nonmelanoma skin cancer 01/25/2015 Hx SCC L dorsal hand 08/2014 HX-MALIG SKIN MELANOMA - LM R neck 08/100901/10/2010 Hyperlipidemia LDL goal <70 Irritable bowel syndrome Pneumonia Pulmonary histoplasmosis ([facility]) 11/23/2012 SLEEP APNEA, UNSPECIFIED- BIPAP and oxygen 06/08/2008 02/04/11 -- BIPAP with 2 LPM Nocturnal ox, CPAP -- <89% 1:52:56 AHP Stroke ([facility]) Tremor 08/24/2019 Trigeminal neuralgia Type 2 diabetes mellitus with diabetic peripheral angiopathy without gangrene ([facility]) 12/15/2018 Type 2 DM with CKD stage 3 and hypertension ([facility]) 09/03/2018 Vitamin D deficiency 12/07/2021 Past Surgical History: Procedure Laterality Date ARTHROPLASTY KNEE TOTAL Left 12/22/2020 ARTHROPLASTY KNEE TOTAL Right 12/21/2021 BX LYMPH NODE DEEP AXIL Right 06/06/2021 BIOPSY LYMPH NODE DEEP AXILLARY OPEN performed by Tamika Goel MD at OR [facility] BX LYMPH NODE-SUPERFIC COLONOSCOPY THRU STOMA, W/BIOPSY 05/01/2007 Hyperplastic polyps--repeat 1 year COLONOSCOPY W/ LESION REMOVAL, SNARE 09/22/2008 hyperplastic polyps, recommend f/u in 2 years COLONOSCOPY W/ LESION REMOVAL, SNARE 08/19/2011 polypectomy x4, diverticulosis, external hemorrhoids, benign and adenomatous polyps, repeat colonoscopy in 3 years COLONOSCOPY, DIAGNOSTIC (RECTUM) 02/13/2015 adenomatous polyps, diverticulosis, repeat 5 yrs/[facility] COLONOSCOPY, DIAGNOSTIC (RECTUM) N/A 09/04/2022 multiple small and large mouthed diverticula sigmoid colon, small AVM/multiple polyps/biopsies showadenomatous polyps/recall 1 year/Colonoscopy/[place] EGD, FLEXIBLE, DIAGNOSTIC 08/14/2016 normal bx/[facility] IDENTIFY SENTINEL NODE, RADIOACTIVE TRACER Right 06/06/2021 INJECTION PROCEDURE FOR IDENTIFICATION SENTINEL NODE performed by Tamika Goel MD at OR [facility] INFORMATION 1990 Trigeminal Decompression 5th nerve INFORMATION Right 08/29/2015 08/29/2012 right temporal bx office procedure Dr.Michael Bullard MASTECTOMY, PARTIAL Right 06/06/2021 MASTECTOMY PARTIAL performed by Tamika Goel MD at OR [facility] RECONSTRUCT/REPLACE SHOULDER JOINT Right 11/14/2017 Dr. Yang REMOVE CATARACT, INSERT LENS PROSTH Right 04/10/2021 right EXTRACAPSULAR CATARACT REMOVAL WITH INTRAOCULAR LENS performed by Irvin Canchola MD at OR [facility] REMOVE CATARACT, INSERT LENS PROSTH Left 04/03/2021 left EXTRACAPSULAR CATARACT REMOVAL WITH INTRAOCULAR LENS performed by Irvin Canchola MD at OR [facility] REMOVE GALLBLADDER 1976 Cholecystectomy, Open [...] COPD, group A, by GOLD 2017 classification ([facility]) Continue Proair Trigeminal neuralgia Continue Carbamazepine ER [...] 12/26/2023 11:00 AM EDT Office Visit Cardiology, [facility] [address] [place] [address] [facility] Cardiology [facility] [address] [place] [address] 02/24/2024 11:00 AM EDT Laboratory Laboratory [facility] [address] [place] [phone] [facility] [address] [place] [address] 02/24/2024 12:00 PM EDT Office Visit Hematology/Oncolog y [facility] [address] [place] [phone] Michelle Ruffin, CHE [address] [facility] [place] [address] 03/02/2024 2:30 PM EDT Hospital Encounter ENDO OSSC, Endoscopy Room [facility] [address] [place] [phone] Landon Kline MD [address] [place] [address] 03/02/2024 2:30 PM EDT - 03/02/2024 3:00 PM EDT Surgery ENDO OSSC, Endoscopy Room [facility] [address] [place] [phone] Landon Kline MD [address] [place] [address] COLONOSCOPY FLEXIBLE PROXIMAL DIAGNOSTIC 04/02/2024 10:30 AM EDT [facility] 132 [facility] [place] [phone] Mara Archibald CRNP [address] [facility] [address] 04/05/2024 10:40 AM EDT Office Visit Family Practice [address] [place] [address] 293 [place] [address] Ferny Sr DO [address] [place] [address] 05/11/2024 11:15 AM EST Office Visit Dermatology [facility] 200 [facility] [place] [address] Kingston Huertas MD 200 [place] [address] Pending Results Name Type Priority Associated Diagnoses Date /Time ALBUMIN / CREATININE RATIO, URINE Lab Routine Type 2 diabetes mellitus with diabetic peripheral angiopathy without gangrene, with long-term current use of insulin ([facility]) 12/03/2023 12:16 PM EDT HEMOGLOBIN A1C Lab Routine Type 2 DM with CKD stage 3 and hypertension ([facility]) 12/03/2023 12:11 PM EDT TSH WITH FREE T4 IF INDICATED Lab Routine Type 2 DM with CKD stage 3 and hypertension ([facility]) 12/03/2023 12:11 PM EDT VITAMIN B12 Lab [...] gangrene, with long-term current use of insulin ([facility]) Expected: 12/03/2023, Expires: 12/02/2024 HEMOGLOBIN A1C Lab [...] Screening 07/29/2024 07/29/2023 CKD HGB USE SMARTSET 53079 09/15/202409/15, 09/16/2023, 08/26/2023, Additional history exists CKD PHOS USE SMARTSET 65723 09/15/202409/04, 08/26/2023, 11/21/2022, Additional history exists O2 ASSESSMENT COMPLETED IN PAST YEAR FOR COPD 10/27/2024 10/28/2023 Colonoscopy 12/02/2024 12/03/2023, 03/07/2022, 02/13/2015, Additional history [...] D LEVEL ONCE IN A LIFETIME-USE SMARTSET# 15182 Completed 08/26/2023, 07/15/2022, 03/13/2022, Additional history exists [...] this encounter Medical Devices Implanted Type Area Ruffler Device Identifier Shelf Expiration Date Model / Serial / Lot Lens Intraoc 18.5 - [id number] - [id number] Implanted:Qty: 1 on 04/03/2021 by Irvin Canchola MD at OR [facility] Left: Eye BAUSCH & LOMB 01/03/2026 [id number] / [id number] / [id number] Lens Intraoc 18.5 - [id number] - [id number] Implanted:Qty: 1 on 04/10/2021 by Irvin Canchola MD at OR [facility] Right: Eye BAUSCH & LOMB 01/03/2026 [id number] / [id number] / [id number] documented as of this encounter Visit Diagnoses Diagnosis Type 2 DM with CKD stage 3 and hypertension ([facility])- Primary Malignant neoplasm of right breast in female, estrogen receptor positive, unspecified site of breast ([facility]) Type 2 diabetes mellitus with diabetic peripheral angiopathy without gangrene, with long-term current use of insulin ([facility]) COPD, group A, by GOLD 2017 classification ([facility]) Trigeminal neuralgia Obstructive sleep apnea syndrome Obstructive [...] polyps documented in this encounter Care Teams Underground Truck Operator Relationship Specialty Start Date End Date Ferny Sr DO [address] [place] [address] PCP - General Internal Medicine 08/31/18 documented as of this encounter
--- OUTSIDE RECORDS SUMMARY | 2024-01-20 21:59 | External Medical Summary ---
Author Name Unknown Address Unknown Organization K01:[facility]ATORY [facility] - [facility] [address] [place] [address] Laboratory Report Ordering Provider Test Date Status VALENTIN GAUTHIER 12/03/2023 12:16:31 Final Normal: <30 mg/g creatinine< br/>High: 30-300 mg/g creatinine
Very High: >300 mg/g creatinine
Nephrotic: >2200 mg/g creatinine Observation Date Value Abnormality Reference (Units ) Status Albumin, Urine 12/03/2023 12:16:31 <1.20 (mg/dL) Final Creatinine, Urine 12/03/2023 12:16:31 92 (mg/dL) Final Albumin/Creatinine [Mass Ratio] in Urine 12/03/2023 12:16:31 <13 <30 (mg/g Creat) Final Performing Location LAB[facility]ATORY [facility] - [address] [place] [address]
--- OUTSIDE RECORDS SUMMARY | 2024-01-20 21:59 | External Medical Summary | Summary of Care ---
Author Name Unknown Organization [facility] Address [address] [place] [address] Phone [phone] Care Team Providers Care On Site Manager Name Role Phone Ferny Sr DO Primary Care Provider [phone] Encounter Details Date Type Department Care Team (Late st Contact Info) Description 11/12/2023 Orders Only Family Practice [address] [facility] [address] [facility] [address] [place], [place] [id number] Muriel Allen, [facility] [address] [place] [address] Type 2 diabetes mellitus with peripheral neuropathy (HCC)* Allergies Active Allergy Reactions Criticality Noted Date Comments Clarithromycin Other (Please comment) Low 1 "Burning mouth" sensation. documented as of this encounter (statuses as of 11/12/2023) Medications Medication Sig Dispensed Refills Start Date End Date Status ONETOUCH ULTRA SYSTEM W/DEVICE KITIndications:DM type 2, goal A1c below 7 test once daily; dx 250.00 1 Kit 0 3 Active VITAMIN C 500 MG PO TABS Take 1 Tablet by mouth daily at noon. 0 4 Active ONETOUCH ULTRASOFT LANCETS MISCIndications:DM type 2, goal A1c below 7 test once daily; dx 250.00 1 Box 5 4 Active fluticasone (FLONASE) 50 MCG/ACT nasal spray Administer 2 Sprays into each nostril 2 times a day. 16 g 5 0 Active Additional Information Patient taking differently:2 [place] Each NostrilHS, Indications: allergies, Reported on 08/13/2022 fexofenadine (JANNY ALLERGY) 180 MG Tablet Take 1 Tab by mouth daily. 0 0 Active Additional Information Patient taking differently:180 mg OralHS, Indications: allergies, Reported on 08/13/2022 BiPAP every night at bedtime. 0 Active Vitamin B12 1000 MCG Oral Tablet Extended Release Take 1,000 mcg by mouth daily. 0 Active Vitamin D High Potency 25 MCG (1000 UT) Oral Capsule (Cholecalciferol) Take 1 Capsule by mouth daily. 0 Active GNP Calcium 1200 7264-5458 MG-UNIT Oral Tablet Chewable Take 1 Tablet by mouth daily. 0 Active Aspirin EC 81 MG Oral Tablet Delayed Release Take 1 Tablet by mouth in the morning. 0 2 Active Azelastine HCl 137 MCG/SPRAY Nasal Solution instill 2 sprays into each nostril twice a day 90 mL 0 2 Active Additional Information Patient taking differently: 2 sprays once daily, Reported on 07/15/2022 Docusate Sodium 100 MG Oral Capsule (Colace) Take 2 Capsules by mouth daily. 0 Active oxygen IN GASIndications:Slee p apnea in adult 4 LPM bled through BIPAP during hours of sleep. 1 Each 0 2 Active OneTouch Ultra Blue In Vitro Strip (Glucose Blood)Indications:T ype 2 diabetes, HbA1C goal < 8% ([facility] [...] 2 Puffs before bedtime. 8 g 0 3 Active Additional Information Patient not taking.Reported on 08/13/2023 Atorvastatin Calcium 80 MG Oral Tablet (Lipitor)Indication s:Dyslipidemia, goal LDL below 160 take 1 tablet by mouth once daily 90 Tablet 3 3 Active Furosemide 40 MG Oral Tablet [...] hypertension ([facility]) Inject 1 mg under the [...] than 70,PAD (peripheral artery disease) ([facility]) Take 1 Tablet by mouth in the morning. 100 Tablet 3 4 Active Lisinopril 40 MG Oral TabletIndications:H TN, goal below 130/80 Take 1 Tablet by mouth in the morning. 100 Tablet 3 4 Active Insulin Glargine Solostar 100 UNIT/ML Subcutaneous Solution Pen-injectorIndicat ions:Type 2 diabetes, HbA1C goal < 8% ([facility]),Type 2 DM with CKD stage 3 and hypertension ([facility]) Inject 30 Units under the skin every evening. 30 mL 2 4 Active oxyCODONE-Acetamino phen 5-325 MG Oral Tablet (Percocet)Indicatio ns:Disc disorder of lumbar region Take 1 Tablet by mouth every 8 hours as needed for Pain, Severe. 90 Tablet 0 4 Active Amoxicillin 500 MG Oral Capsule (Amoxil) Take 4 Capsules by mouth once. One hour prior to appointment 0 4 Active Melatonin 10 MG Oral Tablet Take 1 Tablet by mouth at bedtime. 0 Active Molnupiravir 200 MG Oral Capsule Take 4 Capsules by mouth in the morning and 4 Capsules before bedtime. 40 Capsule 0 4 Active carBAMazepine ER 400 MG Oral Tablet Extended Release 12 Hour (Tegretol-Xr) Take 1 Tablet by mouth in the morning and 1 Tablet before bedtime. 200 Tablet 3 4 Active Pen [place] 32G X 4 MMIndications:Type 2 diabetes mellitus with peripheral neuropathy (HCC) Use once daily with Lantus as directed. E11.9 100 Each 3 4 Active Pen [place] 32G X 4 MMIndications:Type 2 diabetes mellitus with peripheral neuropathy (HCC) Use as directed. Once daily 100 Each 3 4 11/12/19 24 Discontinu ed(Refill) documented as of this encounter (statuses as of 11/12/2023) Active Problems Problem Noted Date Diagnosed Date Osteoporosis without current pathological fractu re 08/27/2023 penitentiary current use of aromatase inhibitor Type 2 [...] days Exacerbation Plan o BMP o Pro-BNP Class 2 severe obesity with serious comorbidity and body mass index (BMI) of 39.0 to 39.9 in adult 01/04/2022 Folic acid deficiency 12/07/2021 B12 deficiency 12/07/2021 [...] Controlled substance agreement with Dr. Sr -has Andrewet p.r.n. Hyperlipidemia with target LDL less than [...] and oxygen 06/08 Overview: with 4 LPM [facility] Last Assessment & Plan: Compliant with BiPAP ADVANCE DIRECTIVE INFORMATION 12/07/2004 Overview: Yes, Patient instructed to provide copy of advance directive for provider to review and to be scanned into Electronic Medical Record Trigeminal neuralgia Mixed rhinitis Irritable bowel syndrome documented as of this encounter (statuses as of 11/12/2023) Resolved Problems Problem Noted Date Diagnosed Date Resolved Date Diabetes mellitus with stage 3 chronic kidney disease 07/15/2022 07/15/2022 Diabetes mellitus 07/15/2022 09/10/2022 Hypertensive heart disease without CHF 01/04/2022 07/15/2022 Open-angle glaucoma 06/14/2021 10/16/19 Atherosclerosis of [place] co ronary artery without angina pectoris 03/26/2021 [...] as of this encounter (statuses as of 11/12/2023) Immunizations Name Administration Dates Next Due COVID-19 mRNA, LNP-s, No Pre serve, 2-Dose Series (Sapho) 05/14/2021,09/21/2020,08/31/2020 COVID-19, LNP-s, No Preserve , Jose-sucrose, Ages 12+ (Sapho) 12/11/2021 COVID-19, MRNA-LNP, 23-24, P F, 30 MCG/0.3 mL, 12 YRS AND ABOVE, IM ([email or web address]) 04/29/2023 Covid-19, Mrna, Lnp-s, Pf, B ivalent, 30 Mcg, IM, 12 yrs and above (Sapho) 05/14/2022 Pneumococcal Conjugate Vacc, 13 Valent (Prevnar) [...] Team (Late st Contact Info) Description 12/03/2023 10:40 AM EDT Office Visit Family Practice 65 [facility] [address] [place] [address] Ferny Sr, [address] [place] [address] 12/26/2023 11:00 AM EDT [facility] [address] [facility] [place] [address] [place], [facility] Cardiology [facility] [address] [place] [address] 02/24/2024 11:00 AM EDT Laboratory Laboratory Yvette Sal[facility] [address] [place] [phone] Trish Salgado [facility] [address] [place] [address] 02/24/2024 12:00 PM EDT Office Visit Hematology/Oncolog y [facility] Naomi [address] [facility] [place] [phone] Michelle Ruffin CRNP [address] [place] [address] [place] [address] 03/02/2024 2:30 PM EDT Hospital Encounter ENDO OSSC, Endoscopy Room [facility] [address] [place] [phone] Landon Kline MD [address] [place] [address] 03/02/2024 2:30 PM EDT - 03/02/2024 3:00 PM EDT Surgery ENDO OSSC, Endoscopy Room [facility] [address] [place] [phone] Landon Kline MD [address] [place] [address] COLONOSCOPY FLEXIBLE PROXIMAL DIAGNOSTIC 04/02/2024 10:30 AM EDT [facility] [address] [place] [phone] Mara Archibald CRNP [address] [place] [address] 05/11/2024 11:15 AM EST [facility] [address] [place] [place], [place] [address] Kingston Huertas MD 200 [facility] [place] [address] Scheduled Procedures Name Priority Associated Diagnoses Date/Ti me COLONOSCOPY FLEXIBLE PROXIMAL DIAGNOSTIC History of colonic polyps 03/02/2024 2:30 PM EDT Health Maintenance Due Date Last Done Comments Alpha-1 Antitrypsin 12/02/1963 Albumin/Creatinine Ratio 07/15/2023 023, 08/15/2021, 09/14/2020, Additional history exists Colonoscopy 09/05/2023 09/04/2022, 02/04, 08/19/2011, Additional history exists Diabetic Foot Exam 11/14/2023 11/13/2022, 0 12/07/2021, 01/23/2021, Additional history exists HbA1c 01/27/2024 07/29/2023, 03/07, 11/13/2022, Additional history exists GFR 03/18/2024 09/16/2023, 08/08, 08/08/2023, Additional history exists Diabetic Eye Exam 06/09/2024 06/09/2023, , 12/06/2022, Additional history exists Depression Screening 07/29/2024 07/29/2023 CKD HGB USE SMARTSET 18842 09/15/202409/15, 09/16/2023, 08/26/2023, Additional history exists CKD PHOS USE SMARTSET 11671 09/15/202409/04, 08/26/2023, 11/21/2022, Additional history exists O2 ASSESSMENT COMPLETED IN PAST YEAR FOR COPD 10/27/2024 10/28/2023 DXA Scan 08/18/2025 08/18/2023, 03/2022, 10/19/2012, Additional [...] Completed 03/18/2023, 03/13/2022, 03/26/2021, Additional history exists COVID-19 Vaccine Completed 04/29/2023, 02/2022, 12/11/2021, Additional history exists VITAMIN D LEVEL ONCE IN A LIFETIME-USE SMARTSET# 26973 Completed 08/26/2023, 07/15/2022, 03/13/2022, Additional history exists [...] this encounter Medical Devices Implanted Type Area Loading Unit Operator Crimping Device Identifier Shelf Expiration Date Model / Serial / Lot Lens Intraoc 18.5 - [id number] - [id number] Implanted:Qty: 1 on 04/03/2021 by Irvin Canchola MD at OR [facility] Left: Eye BAUSCH & LOMB 01/03/2026 [id number] / [id number] / [id number] Lens Intraoc 18.5 - [id number] - [id number] Implanted:Qty: 1 on 04/10/2021 by Irvin Canchola MD at OR [facility] Right: Eye BAUSCH & LOMB 01/03/2026 [id number] / [id number] / [id number] documented as of this encounter Visit Diagnoses Diagnosis Type 2 diabetes mellitus with peripheral neuropathy (HCC)- Primary History of colonic polyps Personal history of colonic polyps documented in this encounter Care Teams On Site Manager Relationship Specialty Start Date End Date Ferny Sr DO [address] [place] [address] PCP - General Internal Medicine 08/31/18 documented as of this encounter
--- OUTSIDE RECORDS SUMMARY | 2024-01-20 21:59 | External Medical Summary | Summary of Care ---
Author Name Unknown Organization [facility] Address [address] [place] [address] Phone [phone] Care Team Providers Care Photographer Scientific Name Role Phone ElnoamFerny DO Primary Care Provider [phone] Encounter Details Date Type Department Care Team (Late st Contact Info) Description 11/25/2023 Population Health External Data Unspecified Department Allergies Active Allergy Reactions Criticality Noted Date Comments Clarithromycin Other (Please comment) Low 1 "Burning mouth" sensation. documented as of this encounter (statuses as of 11/26/2023) Medications Medication Sig Dispensed Refills Start Date End Date Status Magic LeapTOUCH ULTRA SYSTEM W/DEVICE KITIndications:DM type 2, goal [...] 01/11/2020 Active Additional Information Patient taking differently:2 [place] Each NostrilHS, Indications: allergies, Reported on 08/13/2022 [...] by mouth daily. Active GNP Calcium 1200 2466-8971 MG-UNIT Oral Tablet Chewable Take 1 Tablet [...] pe 2 diabetes, HbA1C goal < 8% ([facility]) TEST 3 X DAILY DX E11.9 100 Strip 5 06/11/2022 Active ProAir HFA 108 (90 Base) MCG/ACT Inhalation Aerosol SolutionIndications: Acute cough,COPD, group A, by GOLD 2017 classification ([facility]) Inhale 2 Puffs by mouth in the morning and 2 Puffs at noon and 2 Puffs in the evening and 2 Puffs before bedtime. 8 g 09/13/2022 Active Additional Information Patient not taking.Reported on 08/13/2023 Furosemide 40 MG Oral Tablet (Lasix) take 1 tablet by mouth twice a day 180 Tablet 2 05/28/2023 Active Empagliflozin 25 MG Oral Tablet (Jardiance)Indicatio ns:Type 2 diabetes mellitus with diabetic peripheral angiopathy without gangrene, without long-term current use of insulin ([facility]),Type 2 diabetes mellitus with peripheral neuropathy ([facility]),Type 2 DM with CKD stage 3 and hypertension ([facility]),Type 2 diabetes, HbA1C goal < 8% ([facility]) Take 1 Tablet by mouth in the morning. 100 Tablet 2 08/04/2023 Active Letrozole 2.5 MG Oral Tablet (Femara)Indications: Malignant neoplasm of right breast in female, estrogen receptor positive, unspecified site of breast ([facility]) Take 1 Tablet by mouth in [...] LDL less than 70,PAD (peripheral artery disease) ([facility]) Take 1 Tablet by mouth in the morning. 100 Tablet 3 09/11/2023 Active Lisinopril 40 MG Oral TabletIndications:HT N, goal below 130/80 Take 1 Tablet by mouth in the morning. 100 Tablet 3 09/11/2023 Active Insulin Glargine Solostar 100 UNIT/ML Subcutaneous Solution Pen-injectorIndicati ons:Type 2 diabetes, HbA1C goal < 8% ([facility]),Type 2 DM with CKD stage 3 and hypertension ([facility]) Inject 30 Units under the skin every evening. 30 mL 2 09/22/2023 Active Amoxicillin 500 MG Oral Capsule (Amoxil) Take 4 Capsules by mouth once. One hour prior to appointment 09/29/2023 Active Melatonin 10 MG Oral Tablet Take 1 Tablet by mouth at bedtime. Active Molnupiravir 200 MG Oral Capsule Take 4 Capsules by mouth in the morning and 4 Capsules before bedtime. 40 Capsule 10/27/2023 Active carBAMazepine ER 400 MG Oral Tablet Extended Release 12 Hour (Tegretol-Xr) Take 1 Tablet by mouth in the morning and 1 Tablet before bedtime. 200 Tablet 3 10/28/2023 Active Pen [place]illiner 32G X 4 MMIndications:Type 2 diabetes mellitus with peripheral neuropathy ([facility]) Use once daily with Lantus as [...] as of this encounter (statuses as of 11/26/2023) Active Problems Problem Noted Date Diagnosed Date Osteoporosis without current pathological fractu re 08/27/2023 FDC current use of aromatase inhibitor Type 2 [...] as of this encounter (statuses as of 11/26/2023) Resolved Problems Problem Noted Date Diagnosed Date Resolved Date Diabetes mellitus with stage 3 chronic kidney disease 07/15/2022 07/15/2022 Diabetes mellitus 07/15/2022 09/10/2022 Hypertensive heart disease without CHF 01/04/2022 07/15/2022 Open-angle glaucoma 06/14/2021 10/16/19 Atherosclerosis of nansem[place] indian tribe co ronary artery without angina pectoris 03/26/2021 [...] as of this encounter (statuses as of 11/26/2023) Immunizations Name Administration Dates Next Due COVID-19 mRNA, LNP-s, No Pre serve, 2-Dose Series ([employer]) 05/14/2021,09/21/2020,08/31/2020 COVID-19, LNP-s, No Preserve , Jose-sucrose, Ages 12+ ([facility]) 12/11/2021 COVID-19, MRNA-LNP, 23-24, P F, 30 [...] Care Team (Late st Contact Info) Description 12/02/2023 11:00 AM EDT Office Visit Family Practice [address] [place] [address] 293 [place] [address] College, Health Fiber Optics Engineer Fam Prac [address] [address] 12/03/2023 10:40 AM EDT Office Visit Family Practice 65 [facility] 293 [place] [address] Ferny Sr, [address] [place] [address] 12/26/2023 11:00 AM EDT Office Visit Cardiology, [facility] [address] [facility] [address] 02/24/2024 11:00 AM EDT Laboratory Laboratory Yvette Salgado [place] [address] [place] [phone] Trish Salgado [address] [facility] [place] [address] 02/24/2024 12:00 PM EDT Office Visit Hematology/Oncolog y Yvette Salgado [place] [address] [place] [address] Michelle Ruffin CRNP [address] [employer] [place] [address] 03/02/2024 2:30 PM EDT Hospital Encounter ENDO [facility], Endoscopy Room [facility] [address] [place] [phone] Landon Kline MD [address] [place] [address] 03/02/2024 2:30 PM EDT - 03/02/2024 3:00 PM EDT Surgery ENDO [facility], Endoscopy Room [facility] [address] [place] [phone] Landon Kline MD [address] [place] [address] COLONOSCOPY FLEXIBLE PROXIMAL DIAGNOSTIC 04/02/2024 10:30 AM EDT [facility] [place] [address] [place] [phone] Mara Archibald CRNP [address] [place] [address] 05/11/2024 11:15 AM EST Office Visit Dermatology [facility] [place] 200 [facility] [place] [address] Kingston Huertas MD 200 [facility] [place] [address] Scheduled Procedures Name Priority Associated Diagnoses Date/Ti me COLONOSCOPY FLEXIBLE PROXIMAL DIAGNOSTIC History of colonic polyps 03/02/2024 2:30 PM EDT Health Maintenance Due Date Last Done Comments Alpha-1 Antitrypsin 12[birth year]02/1963 Albumin/Creatinine Ratio 07/15/2023 023, 08/15/2021, 09/14/2020, Additional history exists COVID-19 Vaccine (7 - 2023- season) 2023 04/29/2023, 05/14/2022, 12/11/2021, Additional history exists Colonoscopy 09/05/2023 09/04/2022, 02/04, 08/19/2011, Additional history exists Diabetic Foot Exam 11/14/2023 11/13/2022, 0 12/07/2021, 01/23/2021, Additional history exists HbA1c 01/27/2024 07/29/2023, 03/07, 11/13/2022, Additional history exists GFR 03/18/2024 09/16/2023, 08/08, 08/08/2023, Additional history exists Diabetic Eye Exam 06/09/2024 06/09/2023, , 12/06/2022, Additional history exists Depression Screening 07/29/2024 07/29/2023 CKD HGB USE SMARTSET 13411 09/15/202409/15, 09/16/2023, 08/26/2023, Additional history exists CKD PHOS USE SMARTSET 28237 09/15/202409/04, 08/26/2023, 11/21/2022, Additional history exists O2 [...] D LEVEL ONCE IN A LIFETIME-USE SMARTSET# 95631 Completed 08/26/2023, 07/15/2022, 03/13/2022, Additional history exists [...] this encounter Medical Devices Implanted Type Area Bilingual Inside Sales Representative Device Identifier Shelf Expiration Date Model / Serial / Lot Lens Intraoc 18.5 - [id number] - [id number] Implanted:Qty: 1 on 04/03/2021 by Irvin Canchola MD at OR [facility] Left: Eye [employer]OMB 01/03/2026 [id number] / [id number] / [id number] Lens Intraoc 18.5 - [id number] - [id number] Implanted:Qty: 1 on 04/10/2021 by Irvin Canchola MD at OR [facility] Right: Eye BAUSCH [employer] LOMB 01/03/2026 [id number] / [id number] / [id number] documented as of this encounter Care Teams Photographer Scientific Relationship Specialty Start Date End Date Ferny Sr DO [address] [place] [address] PCP - General Internal Medicine 08/31/18 documented as of this encounter
--- OUTSIDE RECORDS SUMMARY | 2024-01-20 21:59 | External Medical Summary ---
Author Name Unknown Address Unknown Organization [id number]:LABORATORY [facility] [place] - [address] [place] [address] Laboratory Report Ordering Provider Test Date Status VALENTIN GAUTHIER 12/03/2023 12:11:25 Final Observation Date Value Abnormality Reference (Units ) Status Vitamin B12 12/03/2023 12:11:25 1485 Above high normal 232-1245 (pg/mL) Final Performing Location LABORATORY [facility] - [address] [place] [address]
--- OUTSIDE RECORDS SUMMARY | 2024-01-20 21:59 | External Medical Summary ---
Author Name Unknown Address Unknown Organization [id number]:LABORATORY [facility] [place] - [address] [facility] [address] Laboratory Report Ordering Provider Test Date Status VALENTIN GAUTHIER 12/03/2023 12:11:25 Final Observation Date Value Abnormality Reference (Units ) Status HbA1C 12/03/2023 12:11:25 6.3 Above high normal 4. 0-5.6 (%) Final The use of HbA1c to monitor glycemic status is based on normal hemoglobin and HbA composition. This test should not be used in patients with abnormal hemoglobin that affects the half life of the red blood cell or the in vivo glycation rates. Glucose, estimated average 12/03/2023 12:11:25 134 Above high normal <126 (mg/dL) Jabari kay Performing Location LABORATORY [facility] - [address] [facility] [address]
--- OUTSIDE RECORDS SUMMARY | 2024-01-20 21:59 | External Medical Summary | Summary of Care ---
Author Name Unknown Organization [facility] Address [address] [place] [address] Phone [phone] Care Team Providers Care Corporate Development Manager Name Role Phone Ferny Sr DO Primary Care Provider [phone] Encounter Details Date Type Department Care Team (Late st Contact Info) Description 11/21/2023 Documentation [facility] Linsey Cho, Health Biology Professor Allergies Active Allergy Reactions Criticality Noted Date Comments Clarithromycin Other (Please comment) Low 1 "Burning mouth" sensation. documented as of this encounter (statuses as of 11/21/2023) Medications Medication Sig Dispensed Refills Start Date End Date Status ONETOUCH ULTRA SYSTEM W/DEVICE KITIndications:DM type 2, goal A1c below 7 test once daily; dx 250.00 1 Kit 0 10/14/2012 Active VITAMIN C 500 MG PO TABS Take 1 Tablet by mouth daily at noon. 0 11/04/2013 Active ONETOUCH ULTRASOFT LANCETS MISCIndications:DM type 2, goal A1c below 7 test once daily; dx 250.00 1 Box 5 11/12/2013 Active fluticasone (FLONASE) 50 MCG/ACT nasal spray Administer 2 Sprays into each nostril 2 times a day. 16 g 5 01/11/2020 Active Additional Information Patient taking differently:2 [place] Each NostrilHS, Indications: allergies, Reported on 08/13/2022 fexofenadine (JANNY ALLERGY) 180 MG Tablet Take 1 Tab by mouth daily. 0 01/11/2020 Active Additional Information Patient taking differently:180 mg OralHS, Indications: allergies, Reported on 08/13/2022 BiPAP every night at bedtime. 0 Active Vitamin B12 1000 MCG Oral Tablet Extended Release Take 1,000 mcg by mouth daily. 0 Active Vitamin D High Potency 25 MCG (1000 UT) Oral Capsule (Cholecalciferol) Take 1 Capsule by mouth daily. 0 Active GNP Calcium 1200 3017-5167 MG-UNIT Oral Tablet Chewable Take 1 Tablet by mouth daily. 0 Active Aspirin EC 81 MG Oral Tablet Delayed Release Take 1 Tablet by mouth in the morning. 0 01/04/2022 Active Azelastine HCl 137 MCG/SPRAY Nasal Solution instill 2 sprays into each nostril twice a day 90 mL 0 02/06/2022 Active Additional Information Patient taking differently: 2 sprays once daily, Reported on 07/15/2022 Docusate Sodium 100 MG Oral Capsule (Colace) Take 2 Capsules by mouth daily. 0 Active oxygen IN GASIndications:Sleep apnea in adult 4 LPM bled through BIPAP during hours of sleep. 1 Each 0 04/10/2022 Active OneTouch Ultra Blue In Vitro [...] 2 Puffs before bedtime. 8 g 0 09/13/2022 Active Additional Information Patient not taking.Reported on 08/13/2023 Atorvastatin Calcium 80 MG Oral Tablet (Lipitor)Indications :Dyslipidemia, goal LDL below 160 take 1 tablet by mouth once daily 90 Tablet 3 05/21/2023 Active Furosemide 40 MG Oral Tablet (Lasix) [...] HOSPITAL),Type 2 diabetes, HbA1C goal < 8% ([facility]) [...] every evening. 30 mL 2 09/22/2023 Active oxyCODONE-Acetaminop hen 5-325 MG Oral Tablet (Percocet)Indication s:Disc disorder of lumbar region Take 1 Tablet by mouth every 8 hours as needed for Pain, Severe. 90 Tablet 0 09/29/2023 Active Amoxicillin 500 MG Oral Capsule (Amoxil) Take 4 Capsules by mouth once. One hour prior to appointment 0 09/29/2023 Active Melatonin 10 MG Oral Tablet Take 1 Tablet by mouth at bedtime. 0 Active Molnupiravir 200 MG Oral Capsule Take 4 Capsules by mouth in the morning and 4 Capsules before bedtime. 40 Capsule 0 10/27/2023 Active carBAMazepine ER 400 MG Oral Tablet Extended Release 12 Hour (Tegretol-Xr) Take 1 Tablet by mouth in the morning and 1 Tablet before bedtime. 200 Tablet 3 10/28/2023 Active Pen [place] 32G X 4 MMIndications:Type 2 diabetes mellitus with peripheral neuropathy ([facility]) Use once daily with Lantus as directed 100 Each 3 11/12/2023 Active documented as of this encounter (statuses as of 11/21/2023) Active Problems Problem Noted Date Diagnosed Date Osteoporosis without current pathological fractu re 08/27/2023 detention current use of aromatase inhibitor Type 2 [...] and oxygen 06/08 Overview: with 4 LPM [facility] Last Assessment & Plan: Compliant with BiPAP ADVANCE DIRECTIVE INFORMATION 12/07/2004 Overview: Yes, Patient instructed to provide copy of advance directive for provider to review and to be scanned into Electronic Medical Record Trigeminal neuralgia Mixed rhinitis Irritable bowel syndrome documented as of this encounter (statuses as of 11/21/2023) Resolved Problems Problem Noted Date Diagnosed Date Resolved Date Diabetes mellitus with stage 3 chronic kidney disease 07/15/2022 07/15/2022 Diabetes mellitus 07/15/2022 09/10/2022 Hypertensive heart disease without CHF 01/04/2022 07/15/2022 Open-angle glaucoma 06/14/2021 10/16/19 Atherosclerosis of inupiat co ronary artery without angina pectoris 03/26/2021 [...] as of this encounter (statuses as of 11/21/2023) Immunizations Name Administration Dates Next Due COVID-19 mRNA, LNP-s, No Pre serve, 2-Dose Series ([employer]) 05/14/2021,09/21/2020,08/31/2020 COVID-19, LNP-s, No Preserve , Jose-sucrose, [...] encounter Progress Notes * Linsey Cho Health Biology Professor - 11/21/2023 1:42 PM EDT Did patient attend session 2 [...] Team (Late st Contact Info) Description 11/25/2023 11:00 AM EDT Office Visit Family Practice 65 [facility] 293 [place] [phone] College, Health Biology Professor [facility] Prac [address] [place] [address] 12/03/2023 10:40 AM EDT Office Visit Family Practice 65 [facility] 293 [place] [phone] Ferny Sr, 293 [facility] [place] [address] 12/26/2023 11:00 AM EDT Office Visit Cardiology, [facility] 132 [facility] [place] [address] Jaiden [facility] Cardiology Jimi [address] [place] [address] 02/24/2024 11:00 AM EDT Laboratory Laboratory [facility] [place] [address] [place] [phone] Naomi, Lab [facility] [address] [place] [address] 02/24/2024 12:00 PM EDT Office Visit Hematology/Oncolog y [facility] [place] [address] [place] [phone] Michelle Ruffin CRNP 400 [facility] [place] [id number] 03/02/2024 2:30 PM EDT Hospital Encounter ENDO [facility], Endoscopy Room [facility] [address] [place] [phone] Landon Kline MD [address] [place] [address] 03/02/2024 2:30 PM EDT - 03/02/2024 3:00 PM EDT Surgery ENDO [facility], Endoscopy Room [facility] [address] [place] [phone] Landon Kline MD [address] [place] [address] COLONOSCOPY FLEXIBLE PROXIMAL DIAGNOSTIC 04/02/2024 10:30 AM EDT Office Visit Sleep Disorders Ctr [place] [place] [address] [place] [phone] Mara Archibald CRNP [address] [place] [address] 05/11/2024 11:15 AM EST Office Visit Dermatology [facility] Estrada 200 [facility] [place] [address] [place] uHertas MD 200 [facility] [place] [address] Scheduled Procedures Name Priority Associated Diagnoses Date/Ti [...] Screening 07/29/2024 07/29/2023 CKD HGB USE SMARTSET 02059 09/15/202409/15, 09/16/2023, 08/26/2023, Additional history exists CKD PHOS USE SMARTSET 93211 09/15/202409/04, 08/26/2023, 11/21/2022, Additional history exists O2 ASSESSMENT COMPLETED IN PAST YEAR FOR COPD 10/27/2024 10/28/2023 DXA Scan 08/18/2025 08/18/2023, 02/0 03/2022, 10/19/2012, [...] this encounter Medical Devices Implanted Type Area Medical Technologist Microbiology Device Identifier Shelf Expiration Date Model / Serial / Lot Lens Intraoc 18.5 - [id number] - [id number] Implanted:Qty: 1 on 04/03/2021 by Irvin Canchola MD at OR [facility] Left: Eye [employer]CH [employer]OMB 01/03/2026 [id number] / [id number] / [id number] Lens Intraoc 18.5 - [id number] - [id number] Implanted:Qty: 1 on 04/10/2021 by Irvin Canchola MD at OR [facility] Right: Eye BAUSCH & LOMB 01/03/2026 [id number] / [id number] / [id number] documented as of this encounter Care Teams Corporate Development Manager Relationship Specialty Start Date End Date Ferny Sr DO [address] [place] [address] PCP - General Internal Medicine 08/31/18 documented as of this encounter
--- OUTSIDE RECORDS SUMMARY | 2024-01-20 21:59 | External Medical Summary ---
Author Name Unknown Address Unknown Organization K01:[facility]ATORY [facility] [address] [place] [address] Laboratory Report Ordering Provider Test Date Status DISHAVALENTIN 12/03/2023 12:11:25 Final Observation Date Value Abnormality Reference (Units ) Status TSH 12/03/2023 12:11:25 2.75 0.27-4.20 (uIU/mL) Final Performing Location [facility]ORY [facility] [address] [place] [address]
--- OUTSIDE RECORDS SUMMARY | 2024-01-20 21:59 | External Medical Summary | Summary of Care ---
Author Name Unknown Organization [facility] Address [address] [place] [address] Phone [phone] Care Team Providers Care Business Technology Architect Name Role Phone Ferny Sr DO Primary Care Provider [phone] Reason for Visit * Reason Onset Date Comments Medication Refill 11/24/2023 Encounter Details Date Type Department Care Team (Late st Contact Info) Description 11/24/2023 Refill Family Practice [address], [place] [address] [place] [address] Ferny Sr DO [address] [place] [address] Type 2 diabetes mellitus with peripheral neuropathy (HCC)*; Dyslipidemia, goal LDL below 160 Allergies Active Allergy Reactions Criticality Noted Date Comments Clarithromycin Other (Please comment) Low 1 "Burning mouth" sensation. documented as of this encounter (statuses as of 11/24/2023) Medications Medication Sig Dispensed Refills Start Date [...] 0 Active Additional Information Patient taking differently:2 [place] Each NostrilHS, Indications: allergies, Reported on 08/13/2022 [...] by mouth daily. Active GNP Calcium 1200 5514-5061 MG-UNIT Oral Tablet Chewable Take 1 Tablet [...] diabetes, HbA1C goal < 8% ([facility]) TEST 3 X DAILY DX E11.9 100 Strip 5 2 Active ProAir HFA 108 (90 Base) MCG/ACT Inhalation Aerosol SolutionIndications :Acute cough,COPD, group A, by GOLD 2017 classification ([facility]) Inhale 2 Puffs by mouth in the morning and 2 Puffs at noon and 2 Puffs in the evening and 2 Puffs before bedtime. 8 g 3 Active Additional Information Patient not taking.Reported [...] CKD stage 3 and hypertension ([facility]),Type 2 diabetes, HbA1C goal < 8% ([facility]) Take 1 Tablet by mouth in [...] CKD stage 3 and hypertension ([facility]) Take 1 Tablet by mouth in the morning. 100 Tablet 3 4 Active DULoxetine HCl 60 MG Oral Capsule Delayed Release Particles (Cymbalta) Take 1 Capsule by mouth at bedtime. 100 Capsule 2 4 Active Potassium Chloride ER 10 MEQ Oral Tablet Extended ReleaseIndications: Chronic diastolic congestive heart failure ([facility]) Take 1 Tablet by mouth in the morning. 100 Tablet 2 4 Active Montelukast Sodium 10 MG Oral Tablet (Singulair)Indicati ons:Allergic rhinitis Take 1 Tablet by mouth every evening. 100 Tablet 3 4 Active Ozempic (1 MG/DOSE) 4 MG/3ML Subcutaneous Solution Pen-injector (Semaglutide (1 MG/DOSE))Indication s:Type 2 DM with CKD stage 3 and hypertension ([facility]) Inject 1 mg under the skin [...] diabetes, HbA1C goal < 8% ([facility]),Type 2 DM with CKD stage 3 and hypertension ([facility]) Inject 30 Units under the skin every evening. 30 mL 2 4 Active oxyCODONE-Acetamino phen 5-325 MG Oral Tablet (Percocet)Indicatio ns:Disc disorder of lumbar region Take 1 Tablet by mouth every 8 hours as needed for Pain, Severe. 90 Tablet 4 Active Amoxicillin 500 MG Oral Capsule (Amoxil) Take 4 Capsules by mouth once. One hour prior to appointment 4 Active Melatonin 10 MG Oral Tablet Take 1 Tablet by mouth at bedtime. Active Molnupiravir 200 MG Oral Capsule Take 4 Capsules by mouth in the morning and 4 Capsules before bedtime. 40 Capsule 4 Active carBAMazepine ER 400 MG Oral Tablet Extended Release 12 Hour (Tegretol-Xr) Take 1 Tablet by mouth in the morning and 1 Tablet before bedtime. 200 Tablet 3 4 Active Pen [place] 32G X 4 MMIndications:Type 2 diabetes mellitus with peripheral neuropathy (HCC) Use once daily with Lantus as directed 100 Each 3 4 Active Atorvastatin Calcium 80 MG Oral Tablet (Lipitor)Indication s:Dyslipidemia, goal LDL below 160 Take 1 Tablet by mouth in the morning. 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 Sr -has Percnelaet p.r.n. Hyperlipidemia with target LDL less than [...] as of this encounter (statuses as of 11/24/2023) Resolved Problems Problem Noted Date Diagnosed Date Resolved Date Diabetes mellitus with stage 3 chronic kidney disease 07/15/2022 07/15/2022 Diabetes mellitus 07/15/2022 09/10/2022 Hypertensive heart disease without CHF 01/04/2022 07/15/2022 Open-angle glaucoma 06/14/2021 10/16/19 22 Atherosclerosis of [place] [employer] ronary artery without angina pectoris [...] as of this encounter (statuses as of 11/24/2023) Immunizations Name Administration Dates Next Due COVID-19 mRNA, LNP-s, No Pre serve, 2-Dose Series ([employer]) 05/14/2021,09/21/2020,08/31/2020 COVID-19, LNP-s, No Preserve , Jose-sucrose, Ages 12+ ([employer]) 12/11/2021 COVID-19, MRNA-LNP, 23-24, P F, 30 MCG/0.3 mL, 12 YRS AND ABOVE, IM ([facility]) 04/29/2023 Covid-19, Mrna, Lnp-s, Pf, B ivalent, 30 Mcg, IM, 12 yrs and above ([employer]) 05/14/2022 Pneumococcal Conjugate Vacc, 13 Valent (Prevnar) [...] Telephone Encounter - Betty Topete RPh - 11/24/2023 8:15 AM EDT Refill for atorvastatin sent to Mail order per patient request (meets protocol) . Patient in donut hole for Jardiance - she needs to call mail order. Betty Cui, Pharm D, BCACP Clinical Pharmacist [address] [facility] - [facility] 11/24/2023, 8:16 AM Ph. [phone] documented in this encounter Plan of Treatment Upcoming Encounters Date Type Department Care Team (Late st Contact Info) Description 11/25/2023 11:00 AM EDT Office Visit Family Practice 65 [facility], [address] [place] [address] [place], [facility] Executive Vice President And Chief Operating Officer Fam Prac 65 [facility] 293 [place] [address] 12/03/2023 10:40 AM EDT Office Visit Family Practice 65 [facility] 293 [place] [address] Ferny Sr, 293 [facility] [place] [address] 12/26/2023 11:00 AM EDT Office Visit Cardiology, [facility] [address] [facility] [place] [address] [place], [facility] Cardiology [facility] [address] [facility] [place] [address] 02/24/2024 11:00 AM EDT Laboratory Laboratory [facility] [address] [place] [phone] [place], Lab [facility] 200 [facility] [place] [address] 02/24/2024 12:00 PM EDT Office Visit Hematology/Oncolog y [facility] [place] [address] [place] [phone] Michelle Ruffin CRNP [address] [place] [address] [place] [address] 03/02/2024 2:30 PM EDT Hospital Encounter ENDO [facility], Endoscopy Room [facility] [address] [place] [phone] Landon Kline MD [address] [place] [address] 03/02/2024 2:30 PM EDT - 03/02/2024 3:00 PM EDT Surgery ENDO [facility], Endoscopy Room [facility] [address] [place] [phone] Landon Kline MD [address] [place] [address] COLONOSCOPY FLEXIBLE PROXIMAL DIAGNOSTIC 04/02/2024 10:30 AM EDT [facility] [address] [place] [phone] Mara Archibald CRNP [address] [place] [address] 05/11/2024 11:15 AM EST Office Visit Dermatology [facility] [place] [address] [facility] [place] [address] [place] Huertas MD 200 [facility] [place] [address] Scheduled Procedures Name Priority Associated Diagnoses Date/Ti [...] Screening 07/29/2024 07/29/2023 CKD HGB USE SMARTSET 26980 09/15/202409/15, 09/16/2023, 08/26/2023, Additional history exists CKD PHOS USE SMARTSET 71393 09/15/202409/04, 08/26/2023, 11/21/2022, Additional history exists O2 [...] D LEVEL ONCE IN A LIFETIME-USE SMARTSET# 57586 Completed 08/26/2023, 07/15/2022, 03/13/2022, Additional history exists [...] this encounter Medical Devices Implanted Type Area Hot Stick Man Device Identifier Shelf Expiration Date Model / Serial / Lot Lens Intraoc 18.5 - [id number] - [id number] Implanted:Qty: 1 on 04/03/2021 by Irvin Canchola MD at OR [facility] Left: Eye [employer] 01/03/2026 [id number] / [id number] / [id number] Lens Intraoc 18.5 - [id number] - [id number] Implanted:Qty: 1 on 04/10/2021 by Irvin Canchola MD at OR [facility] Right: Eye [employer] 01/03/2026 [id number] / [id number] / [id number] documented as of this encounter Visit Diagnoses Diagnosis Type 2 diabetes mellitus with peripheral neuropathy (HCC)- Primary Dyslipidemia, goal LDL below 160 Other and unspecified hyperlipidemia History of colonic polyps Personal history of colonic polyps documented in this encounter Care Teams Business Technology Architect Relationship Specialty Start Date End Date Ferny Sr DO [address] [place] [address] PCP - General Internal Medicine 08/31/18 documented as of this encounter
--- OUTSIDE RECORDS SUMMARY | 2024-01-20 21:59 | External Medical Summary | Summary of Care ---
Author Name Unknown Organization [facility] Address [address] [place] [address] Phone [phone] Care Team Providers Care Bedspread Inspector Name Role Phone Ferny Sr DO Primary Care Provider [phone] Reason for Visit * Reason Comments Follow Up Encounter Details Date Type Department Care Team (Latest Contact Info) Description 12/03/2023 10:40 AM EDT Office Visit Family Practice 65 [facility] [address] [place] [address] Ferny Sr DO [address] [place] [address] Type 2 DM with CKD stage 3 and hypertension ([facility])*; Malignant neoplasm of right breast in female, estrogen receptor positive, unspecified site of breast ([facility]); Type 2 diabetes mellitus with diabetic peripheral angiopathy without gangrene, with long-term current use of insulin ([facility]); COPD, group A, by GOLD 2017 classification ([facility]); Trigeminal neuralgia; Obstructive sleep apnea [...] Dispensed Refills Start Date End Date Status eoSemi SYSTEM W/DEVICE KITIndications:DM type 2, goal A1c [...] 0 Active Additional Information Patient taking differently:2 [place] Each NostrilHS, Indications: allergies, Reported on 08/13/2022 [...] by mouth daily. Active GNP Calcium 1200 0513-7182 MG-UNIT Oral Tablet Chewable Take 1 Tablet [...] long-term current use of insulin ([facility]),Type 2 diabetes mellitus with peripheral neuropathy ([facility]),Type 2 DM with CKD stage 3 and hypertension ([facility]),Type 2 diabetes, HbA1C goal < 8% ([facility]) Take 1 Tablet by mouth in the morning. 100 Tablet 2 4 Active Letrozole 2.5 MG Oral Tablet (Femara)Indications :Malignant neoplasm of right breast in female, estrogen receptor positive, unspecified site of breast ([facility]) Take 1 Tablet by mouth in the morning. 100 Tablet 3 4 Active amLODIPine Besylate 2.5 MG Oral Tablet (Norvasc)Indication s:Type 2 DM with CKD stage 3 and hypertension ([facility]) Take 1 Tablet by mouth in the morning. 100 Tablet 3 4 Active DULoxetine HCl 60 MG Oral Capsule Delayed Release Particles (Cymbalta) Take 1 Capsule by mouth at bedtime. 100 Capsule 2 4 Active Potassium Chloride ER 10 MEQ Oral Tablet Extended ReleaseIndications: Chronic diastolic congestive heart failure ([facility]) Take 1 [...] bedtime. 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 Talk to your doctor or life sciences instructor (a doctor who specializes in foot care) [...] the area doesnt appear to be healing. [phone] [employer], [address] [place] [address], [place] [address]. All rights reserved. This information is not [...] breast (HCC) Osteoporosis without current pathological fracture residential current use of aromatase inhibitor Current Outpatient [...] Capsule by mouth daily. GNP Calcium 1200 3025-6661 MG-UNIT Oral Tablet Chewable Take 1 Tablet [...] needed for Pain, Severe. 90 Tablet 0 [employer] ULTRA SYSTEM W/DEVICE KIT test once daily; dx 250.00 1 Kit 0 ContextWebTOUCH ULTRASOFT LANCETS MISC test once daily; dx 250.00 1 Box 5 OneTouch Ultra Blue In Vitro Strip (Glucose Blood) TEST 3 X DAILY DX E11.9 100 Strip 5 Pen [place] 32G X 4 MM Use once daily [...] Modified per CVA protocol #8 Diabetes mellitus ([facility]) Disc disorder of lumbar region 10/06/2012 Dyslipidemia, goal to be determined Folic acid deficiency 12/07/2021 Gastroesophageal reflux disease without esophagitis 02/02/2018 Glaucoma History of tobacco use Hx of nonmelanoma skin cancer 01/25/2015 Hx SCC L dorsal hand 08/2014 HX-MALIG SKIN MELANOMA - LM R neck 08/100901/10/2010 Hyperlipidemia LDL goal <70 Irritable bowel syndrome Pneumonia 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 SLEEP APNEA, UNSPECIFIED- BIPAP and oxygen 06/08/2008 02/04/11 -- BIPAP with 2 LPM Nocturnal ox, CPAP -- <89% 1:52:56 AHP Stroke ([facility]) Tremor 08/24/2019 Trigeminal neuralgia Type 2 diabetes mellitus with diabetic peripheral angiopathy without gangrene ([facility]) 12/15/2018 Type 2 DM with CKD stage 3 and hypertension ([facility]) 09/03/2018 Vitamin D deficiency 12/07/2021 Past Surgical History: Procedure Laterality Date ARTHROPLASTY KNEE TOTAL Left 12/22/2020 ARTHROPLASTY KNEE TOTAL Right 12/21/2021 BX LYMPH NODE DEEP AXIL Right 06/06/2021 BIOPSY LYMPH NODE DEEP AXILLARY OPEN performed by Tamika Goel MD at OR [facility] BX LYMPH NODE-SUPERFIC COLONOSCOPY THRU STOMA, W/BIOPSY 05/01/2007 Hyperplastic polyps--repeat 1 year COLONOSCOPY W/ LES[place] REMOVAL, SNARE 09/22/2008 hyperplastic polyps, recommend f/u in 2 years COLONOSCOPY W/ [place]ES[place] REMOVAL, SNARE 08/19/2011 polypectomy x4, diverticulosis, external hemorrhoids, benign and adenomatous polyps, repeat colonoscopy in 3 years COLONOSCOPY, DIAGNOSTIC (RECTUM) 02/13/2015 adenomatous polyps, diverticulosis, repeat 5 yrs/[facility] COLONOSCOPY, DIAGNOSTIC (RECTUM) N/A 09/04/2022 multiple small and large mouthed diverticula sigmoid colon, small AVM/multiple polyps/biopsies showadenomatous polyps/recall 1 year/Colonoscopy/[place] EGD, FLEXIBLE, DIAGNOSTIC 08/14/2016 normal bx/[facility] IDENTIFY SENTINEL NODE, RADIOACTIVE TRACER Right 06/06/2021 INJECTION PROCEDURE FOR IDENTIFICATION SENTINEL NODE performed by Tamika Goel MD at OR [facility] INFORMATION 1990 Trigeminal Decompression 5th nerve INFORMATION Right 08/29/2015 08/29/2012 right temporal bx office procedure Dr.Michael Bullard MASTECTOMY, PARTIAL Right 06/06/2021 MASTECTOMY PARTIAL performed by Tamika Goel MD at OR [facility] RECONSTRUCT/REPLACE SHOULDER JOINT Right 11/14/2017 Dr. Yang REMOVE CATARACT, INSERT LENS PROSTH Right 04/10/2021 right EXTRACAPSULAR CATARACT REMOVAL WITH INTRAOCULAR LENS performed by Irvin Canchola MD at OR [facility] REMOVE CATARACT, INSERT LENS PROSTH Left 04/03/2021 left EXTRACAPSULAR CATARACT REMOVAL WITH INTRAOCULAR LENS performed by Irvin Canchola MD at OR [facility] REMOVE GALLBLADDER 1976 Cholecystectomy, Open REMOVE [...] COPD, group A, by GOLD 2017 classification ([facility]) Continue Proair Trigeminal neuralgia Continue [...] 12/26/2023 11:00 AM EDT Office Visit Cardiology, [facility] [address] [place] [address] [facility] Cardiology [facility] [address] [place] [address] 02/24/2024 11:00 AM EDT Laboratory Laboratory [facility] [address] [place] [phone] [facility] Lab [facility] [address] [place] [address] 02/24/2024 12:00 PM EDT Office Visit Hematology/Oncolog y [facility] [address] [place] [phone] Michelle Ruffin, CHE [address] [facility] [place] [address] 03/02/2024 2:30 PM EDT Hospital Encounter ENDO [facility], Endoscopy Room [facility] [address] [place] [phone] Landon Kline MD [address] [place] [address] 03/02/2024 2:30 PM EDT - 03/02/2024 3:00 PM EDT Surgery ENDO [facility], Endoscopy Room [facility] [address] [place] [phone] Landon Kline MD [address] [place] [address] COLONOSCOPY FLEXIBLE PROXIMAL DIAGNOSTIC 04/02/2024 10:30 AM EDT Office Visit Sleep Disorders Ctr [place] [address] [place] [phone] Mara Archibald CRNP [address] [place] [address] 05/11/2024 11:15 AM EST Office Visit Dermatology [facility] [place] [address] [facility] [place] [address] [place] Huertas MD 200 [facility] [place] [address] Pending Results Name Type Priority Associated Diagnoses [...] Screening 07/29/2024 07/29/2023 CKD HGB USE SMARTSET 90401 09/15/202409/15, 09/16/2023, 08/26/2023, Additional history exists CKD PHOS USE SMARTSET 43879 09/15/202409/04, 08/26/2023, 11/21/2022, Additional history exists O2 [...] D LEVEL ONCE IN A LIFETIME-USE SMARTSET# 97278 Completed 08/26/2023, 07/15/2022, 03/13/2022, Additional history exists [...] this encounter Medical Devices Implanted Type Area Lan Administrator Device Identifier Shelf Expiration Date Model / Serial / Lot Lens Intraoc 18.5 - [id number] - [id number] Implanted:Qty: 1 on 04/03/2021 by Irvin Canchola MD at OR [facility] Left: Eye [employer] 01/03/2026 [id number] / [id number] / [id number] Lens Intraoc 18.5 - [id number] - [id number] Implanted:Qty: 1 on 04/10/2021 by Irvin Canchola MD at OR [facility] Right: Eye [employer] 01/03/2026 [id number] / [id number] / [id number] documented as of this encounter Visit Diagnoses [...] polyps documented in this encounter Care Teams Bedspread Inspector Relationship Specialty Start Date End Date Ferny Sr DO [address] [place] [address] PCP - General Internal Medicine 08/31/18 documented as of this encounter
--- OUTSIDE RECORDS SUMMARY | 2024-01-20 21:59 | External Medical Summary | Summary of Care ---
Author Name Unknown Organization [facility] Address [address] [place] [address] Phone [phone] Care Team Providers Care Puller Out Name Role Phone Ferny Sr DO Primary Care Provider [phone] Encounter Details Date Type Department Care Team (Late st Contact Info) Description 11/25/2023 Documentation HEALTH & WELLNESS Linsey Cho, Health Sanding Line Operator Allergies Active Allergy Reactions Criticality Noted Date Comments Clarithromycin Other (Please comment) Low 1 "Burning mouth" sensation. documented as of this encounter (statuses as of 11/25/2023) Medications Medication Sig Dispensed Refills Start Date [...] 01/11/2020 Active Additional Information Patient taking differently:2 [place] Each NostrilHS, Indications: allergies, Reported on [...] by mouth daily. Active GNP Calcium 1200 5780-1174 MG-UNIT Oral Tablet Chewable Take 1 Tablet [...] 2 diabetes, HbA1C goal < 8% ([facility]) TEST 3 X DAILY DX E11.9 100 Strip 5 06/11/2022 Active ProAir HFA 108 (90 Base) MCG/ACT Inhalation Aerosol SolutionIndications: Acute cough,COPD, group A, by GOLD 2017 classification ([facility]) Inhale 2 Puffs by mouth in the [...] without long-term current use of insulin ([facility]),Type 2 diabetes mellitus with peripheral neuropathy ([facility]),Type 2 DM with CKD stage 3 and hypertension ([facility]),Type 2 diabetes, HbA1C goal < 8% ([facility]) Take 1 Tablet by mouth in the [...] with CKD stage 3 and hypertension ([facility]) Take 1 Tablet by mouth in the morning. 100 Tablet 08/13/2023 Active DULoxetine HCl 60 MG Oral Capsule Delayed Release Particles (Cymbalta) Take 1 Capsule by mouth at bedtime. 100 Capsule 2 08/20/2023 Active Potassium Chloride ER 10 MEQ Oral Tablet Extended ReleaseIndications:C hronic diastolic congestive heart failure ([facility]) Take 1 Tablet by mouth in the morning. 100 Tablet 2 08/20/2023 Active Montelukast Sodium 10 MG Oral Tablet (Singulair)Indicatio ns:Allergic rhinitis Take 1 Tablet by mouth every evening. 100 Tablet 08/25/2023 Active Ozempic (1 MG/DOSE) 4 MG/3ML Subcutaneous Solution Pen-injector (Semaglutide (1 MG/DOSE))Indications :Type 2 DM with CKD stage 3 and hypertension ([facility]) Inject 1 mg under the skin once [...] less than 70,PAD (peripheral artery disease) ([facility]) Take 1 Tablet by mouth in the [...] as needed for Pain, Severe. 90 Tablet 09/29/2023 Active Amoxicillin 500 MG Oral Capsule [...] bedtime. 200 Tablet 3 10/28/2023 Active Pen [place] 32G X 4 MMIndications:Type 2 diabetes mellitus with peripheral neuropathy (HCC) Use once daily with Lantus as directed 100 Each 3 11/12/2023 Active Atorvastatin Calcium 80 MG Oral Tablet (Lipitor)Indications :Dyslipidemia, goal LDL below 160 Take 1 Tablet by mouth in the morning. 100 Tablet 2 11/24/2023 Active documented as of this encounter (statuses as of 11/25/2023) Active Problems Problem Noted Date Diagnosed Date [...] as of this encounter (statuses as of 11/25/2023) Resolved Problems Problem Noted Date Diagnosed Date Resolved Date Diabetes mellitus with stage 3 chronic kidney disease 07/15/2022 07/15/2022 Diabetes mellitus 07/15/2022 09/10/2022 Hypertensive heart disease without CHF 01/04/2022 07/15/2022 Open-angle glaucoma 06/14/2021 10/16/19 22 Atherosclerosis of [place] co ronary artery without angina pectoris 03/26/2021 [...] as of this encounter (statuses as of 11/25/2023) Immunizations Name Administration Dates Next Due COVID-19 mRNA, LNP-s, No Pre serve, 2-Dose Series ([employer]) 05/14/2021,09/21/2020,08/31/2020 COVID-19, LNP-s, No Preserve , Jose-sucrose, Ages 12+ ([employer]) 12/11/2021 COVID-19, MRNA-LNP, 23-24, P F, 30 [...] encounter Progress Notes * Linsey Cho Health Sanding Line Operator - 11/25/2023 1:48 PM EDT Did patient attend session 3 of 10 of the small group balance program? No: Patient did not attend session 1 of 10 of the small group balance program. documented in this encounter Plan of Treatment Upcoming Encounters Date Type Department Care Team (Late st Contact Info) Description 12/03/2023 10:40 AM EDT Office Visit Family Practice [address] [place] [address] [address] [place] [address] Ferny Sr, [address] [place] [address] 12/26/2023 11:00 AM EDT [facility] [address] [facility] [place] [address] [facility] Cardiology [facility] 132 [facility] [place] [address] 02/24/2024 11:00 AM EDT Laboratory Laboratory [facility] [address] [place] [address] Trish Salgado [address] [place] [address] 02/24/2024 12:00 PM EDT Office Visit Hematology/Oncolog y [facility] [place] 200 [facility] [place] [phone] Michelle Ruffin CRNP [address] [place] [address] 03/02/2024 2:30 PM EDT Hospital Encounter ENDO [facility], Endoscopy Room [facility] [address] [place] [address] Landon Kline MD [address] [place] [address] 03/02/2024 2:30 PM EDT - 03/02/2024 3:00 PM EDT Surgery ENDO [facility], Endoscopy Room [facility] [address] [place] [phone] Landon Kline MD [address] [place] [address] COLONOSCOPY FLEXIBLE PROXIMAL DIAGNOSTIC 04/02/2024 10:30 AM EDT Office Visit Sleep Disorders Ctr [facility] [place] [address] [place] [phone] Mara Archibald CRNP [address] [place] [address] 05/11/2024 11:15 AM EST Office Visit Dermatology [facility] Naomi [place] [address] [place] [address] Kingston Huertas MD [address] [place] [address] Scheduled Procedures Name Priority Associated Diagnoses Date/Ti [...] Screening 07/29/2024 07/29/2023 CKD HGB USE SMARTSET 69538 09/15/202409/15, 09/16/2023, 08/26/2023, Additional history exists CKD PHOS USE SMARTSET 66391 09/15/202409/04, 08/26/2023, 11/21/2022, Additional history exists O2 [...] D LEVEL ONCE IN A LIFETIME-USE SMARTSET# 75217 Completed 08/26/2023, 07/15/2022, 03/13/2022, Additional history exists [...] this encounter Medical Devices Implanted Type Area Galley Stripper Device Identifier Shelf Expiration Date Model / Serial / Lot Lens Intraoc 18.5 - [id number] - [id number] Implanted:Qty: 1 on 04/03/2021 by Irvin Canchola MD at OR [facility] Left: Eye BAUSCH & LOMB 01/03/2026 [id number] / [id number] / [id number] Lens Intraoc 18.5 - [id number] - [id number] Implanted:Qty: 1 on 04/10/2021 by Irvin Canchola MD at OR [facility] Right: Eye BAUSCH & LOMB 01/03/2026 [id number] / [id number] / [id number] documented as of this encounter Care Teams Puller Out Relationship Specialty Start Date End Date Ferny Sr DO [address] [place] [address] PCP - General Internal Medicine 08/31/18 documented as of this encounter
--- OUTSIDE RECORDS SUMMARY | 2024-01-20 21:59 | External Medical Summary | Summary of Care ---
Author Name Unknown Organization [facility] Address [address] [place] [address] Phone [phone] Care Team Providers Care Blue Print Control Clerk Name Role Phone Ferny Sr DO Primary Care Provider [phone] Encounter Details Date Type Department Care Team (Late st Contact Info) Description 11/18/2023 Documentation [facility]ALTH & WELLNESS Linsey Cho, Health Glass Fitter Allergies Active Allergy Reactions Criticality Noted Date Comments Clarithromycin Other (Please comment) Low 1 "Burning mouth" sensation. documented as of this encounter (statuses as of 11/18/2023) Medications Medication Sig Dispensed Refills Start Date [...] 01/11/2020 Active Additional Information Patient taking differently:2 [place] Each NostrilHS, Indications: allergies, Reported on 08/13/2022 [...] mouth daily. 0 Active GNP Calcium 1200 6251-7552 MG-UNIT Oral Tablet Chewable Take 1 Tablet [...] diabetes, HbA1C goal < 8% ([facility]) TEST 3 X DAILY DX E11.9 100 Strip 5 06/11/2022 Active ProAir HFA 108 (90 Base) MCG/ACT Inhalation Aerosol SolutionIndications: Acute cough,COPD, group A, by GOLD 2017 classification ([facility]) Inhale 2 Puffs by mouth [...] long-term current use of insulin ([facility]),Type 2 diabetes mellitus with peripheral neuropathy ([facility]),Type 2 DM with CKD stage 3 and hypertension ([facility]),Type 2 diabetes, HbA1C goal < 8% (HCC) [...] than 70,PAD (peripheral artery disease) ([facility]) Take 1 Tablet by mouth in the morning. 100 Tablet 3 09/11/2023 Active Lisinopril 40 MG Oral TabletIndications:HT N, goal below 130/80 Take 1 Tablet by mouth in the morning. 100 Tablet 3 09/11/2023 Active Insulin Glargine Solostar 100 UNIT/ML Subcutaneous Solution Pen-injectorIndicati ons:Type 2 diabetes, HbA1C goal < 8% ([facility]),Type 2 DM with CKD stage 3 and hypertension ([facility]) Inject 30 Units under the [...] bedtime. 200 Tablet 3 10/28/2023 Active Pen [place] 32G X 4 MMIndications:Type 2 diabetes mellitus with peripheral neuropathy ([facility]) Use once daily with Lantus as directed 100 Each 3 11/12/2023 Active documented as of this encounter (statuses as of 11/18/2023) Active Problems Problem Noted Date Diagnosed Date [...] as of this encounter (statuses as of 11/18/2023) Resolved Problems Problem Noted Date Diagnosed Date Resolved Date Diabetes mellitus with stage 3 chronic kidney disease 07/15/2022 07/15/2022 Diabetes mellitus 07/15/2022 09/10/2022 Hypertensive heart disease without CHF 01/04/2022 07/15/2022 Open-angle glaucoma 06/14/2021 10/16/19 Atherosclerosis of [place] co ronary artery without angina pectoris 03/26/2021 [...] as of this encounter (statuses as of 11/18/2023) Immunizations Name Administration Dates Next Due COVID-19 mRNA, LNP-s, No Pre serve, 2-Dose Series ([employer]) 05/14/2021,09/21/2020,08/31/2020 COVID-19, LNP-s, No Preserve , Jose-sucrose, [...] encounter Progress Notes * Linsey Cho Health Glass Fitter - 11/18/2023 3:20 PM EDT Did patient attend session 1 of 10 of the small group balance program? No: Patient did not attend session 1 of 10 of the small group balance program. documented in this encounter Plan of Treatment Upcoming Encounters Date Type Department Care Team (Late st Contact Info) Description 11/21/2023 11:00 AM EDT Office Visit Family Practice [address] [facility] 293 [facility] [place] [address] [place], Health Glass Fitter [facility] Prac [address] [place] [address] 12/03/2023 10:40 AM EDT Office Visit Family Practice [facility] 293 [facility] [place] [address] Ferny Sr, 293 [place] [address] 12/26/2023 11:00 AM EDT Office Visit Cardiology, [facility] 132 [facility] [place] [address] [facility] Cardiology [facility] 132 [facility] [place] [address] 02/24/2024 11:00 AM EDT Laboratory Laboratory [facility] [place] [address] [place] [phone] Trish Salgado [facility] [address] [facility] [place] [address] 02/24/2024 12:00 PM EDT Office Visit Hematology/Oncolog y [facility] [place] [address] [place] [address] Michelle Ruffin CRNP [address] [place], [place] [address] [phone] 03/02/2024 2:30 PM EDT Hospital Encounter ENDO [facility], Endoscopy Room [facility] [address] [place] [phone] Landon Kline MD [address] [place] [address] 03/02/2024 2:30 PM EDT - 03/02/2024 3:00 PM EDT Surgery ENDO [facility], Endoscopy Room [facility] [address] [place] [phone] Landon Kline MD [address] [place] [address] COLONOSCOPY FLEXIBLE PROXIMAL DIAGNOSTIC 04/02/2024 10:30 AM EDT [facility] [address] [place] [phone] Mara Archibald CRNP [address] [place] [address] 05/11/2024 11:15 AM EST Office Visit Dermatology [facility] [place] [address] [place] [address] Kingston Huertas MD [address] [place] [address] Scheduled Procedures Name Priority Associated Diagnoses Date/Ti [...] Screening 07/29/2024 07/29/2023 CKD HGB USE SMARTSET 81292 09/15/202409/15, 09/16/2023, 08/26/2023, Additional history exists CKD PHOS USE SMARTSET 28899 09/15/202409/04, 08/26/2023, 11/21/2022, Additional history exists O2 [...] D LEVEL ONCE IN A LIFETIME-USE SMARTSET# 05203 Completed 08/26/2023, 07/15/2022, 03/13/2022, Additional history exists [...] this encounter Medical Devices Implanted Type Area Business Process Expert Device Identifier Shelf Expiration Date Model / Serial / Lot Lens Intraoc 18.5 - [id number] - [id number] Implanted:Qty: 1 on 04/03/2021 by Irvin Canchola MD at OR [facility] Left: Eye BAUSCH & LOMB 01/03/2026 [id number] / [id number] / [id number] Lens Intraoc 18.5 - [id number] - [id number] Implanted:Qty: 1 on 04/10/2021 by Irvin Canchola MD at OR [facility] Right: Eye BAUSCH & LOMB 01/03/2026 [id number] / [id number] / [id number] documented as of this encounter Care Teams Blue Print Control Clerk Relationship Specialty Start Date End Date Ferny Sr DO [address] [place] [address] PCP - General Internal Medicine 08/31/18 documented as of this encounter
--- OUTSIDE RECORDS SUMMARY | 2024-01-20 21:59 | External Medical Summary ---
Author Name Unknown Address Unknown Organization K01:[facility] [place] - [address] [address] Laboratory Report Ordering Provider Test Date Status VALENTIN GAUTHIER 12/03/2023 12:11:25 Final Observation Date Value Abnormality Reference (Units ) Status Folic Acid 12/03/2023 12:11:25 >20.0 >4.5 (ng/ mL) Final Performing Location [facility] [place] - [address] [place] [address]
--- OUTSIDE RECORDS SUMMARY | 2024-01-20 21:59 | External Medical Summary | Summary of Care ---
Author Name Unknown Organization [facility] Address [address] [place] [address] Phone [phone] Care Team Providers Care Banquet Line Cook Name Role Phone Ferny Sr DO Primary Care Provider [phone] Encounter Details Date Type Department Care Team (Late st Contact Info) Description 12/02/2023 Documentation HEALTH & WELLNESS Linsey Cho, Health Insulation Foreman Allergies Active Allergy Reactions Criticality Noted Date Comments Clarithromycin Other (Please comment) Low 1 "Burning mouth" sensation. documented as of this encounter (statuses as of 12/02/2023) Medications Medication Sig Dispensed Refills Start Date [...] 01/11/2020 Active Additional Information Patient taking differently:2 [place] Each NostrilHS, Indications: allergies, Reported on 08/13/2022 [...] by mouth daily. Active GNP Calcium 1200 7008-9937 MG-UNIT Oral Tablet Chewable Take 1 Tablet [...] diabetes, HbA1C goal < 8% ([facility]) TEST 3 X DAILY DX E11.9 100 Strip 5 06/11/2022 Active ProAir HFA 108 (90 Base) MCG/ACT Inhalation Aerosol SolutionIndications: Acute cough,COPD, group A, by GOLD 2017 classification ([facility]) Inhale 2 Puffs by mouth [...] long-term current use of insulin ([facility]),Type 2 diabetes mellitus with peripheral neuropathy ([facility]),Type 2 DM with CKD stage 3 and hypertension ([facility]),Type 2 diabetes, HbA1C goal < 8% ([facility]) Take 1 Tablet by mouth [...] bedtime. 200 Tablet 3 10/28/2023 Active Pen [place] 32G X 4 MMIndications:Type 2 diabetes mellitus [...] as of this encounter (statuses as of 12/02/2023) Active Problems Problem Noted Date Diagnosed Date [...] and oxygen 06/08 Overview: with [address] [facility] Last Assessment & Plan: Compliant with [employer] ADVANCE DIRECTIVE INFORMATION 12/07/2004 Overview: Yes, Patient instructed to provide copy of advance directive for provider to review and to be scanned into Electronic Medical Record Trigeminal neuralgia Mixed rhinitis Irritable bowel syndrome documented as of this encounter (statuses as of 12/02/2023) Resolved Problems Problem Noted Date Diagnosed Date Resolved Date Diabetes mellitus with stage 3 chronic kidney disease 07/15/2022 07/15/2022 Diabetes mellitus 07/15/2022 09/10/2022 Hypertensive heart disease without CHF 01/04/2022 07/15/2022 Open-angle glaucoma 06/14/2021 10/16/19 Atherosclerosis of [place] co ronary [...] as of this encounter (statuses as of 12/02/2023) Immunizations Name Administration Dates Next Due COVID-19 mRNA, LNP-s, No Pre serve, 2-Dose Series ([employer]) 05/14/2021,09/21/2020,08/31/2020 COVID-19, LNP-s, No Preserve , Jose-sucrose, [...] encounter Progress Notes * Linsey Cho Health Insulation Foreman - 12/02/2023 1:49 PM EDT Did patient attend session 4 of 10 of the small group balance program? Yes: Patient attended session 4 of 10 of the small group balance program. Session 4 focused on a review of fall prevention in the home, lower extremity strengthening and hand eye coordination drills from the previous sessions. Pr acticed exercises as a group. documented in this encounter Plan of Treatment Upcoming Encounters Date Type Department Care Team (Late st Contact Info) Description 12/03/2023 10:40 AM EDT Office Visit Family Practice [address] [place] [address] [place] [address] Ferny Sr, 293 [facility], [place] [address] 12/26/2023 11:00 AM EDT [facility] 132 [facility] [place] [address] [facility] Cardiology [facility] 132 [facility] [place] [address] 02/24/2024 11:00 AM EDT Laboratory Laboratory [facility] [address] [place] [address] Trish Salgado [facility] 200 [facility] [place], [place] [address] 02/24/2024 12:00 PM EDT Office Visit Hematology/Oncolog y [facility] [place] [address] [place], [place] [phone] Michelle Ruffin CRNP 400 [facility] [place] [address] 03/02/2024 2:30 PM EDT Hospital Encounter [facility], Endoscopy Room [facility] [address] [place] [phone] Landon Kline MD [address] [place] [address] 03/02/2024 2:30 PM EDT - 03/02/2024 3:00 PM EDT Surgery [facility]O [facility], Endoscopy Room [facility] [address] [place] [phone] Landon Kline MD [address] [place] [address] COLONOSCOPY FLEXIBLE PROXIMAL DIAGNOSTIC 04/02/2024 10:30 AM EDT Office Visit Sleep Disorders Ctr [facility] [place] [address] [place] [phone] Mara Archibald CRNP [address] [place] [address] 05/11/2024 11:15 AM EST Office Visit Dermatology Yvette Salgado [place] [address] [place], [place] [address] Kingston Huertas MD [address] [place] [address] Scheduled Procedures Name Priority Associated Diagnoses Date/Ti [...] Screening 07/29/2024 07/29/2023 CKD HGB USE SMARTSET 43252 09/15/202409/15, 09/16/2023, 08/26/2023, Additional history exists CKD PHOS USE SMARTSET 35845 09/15/202409/04, 08/26/2023, 11/21/2022, Additional history exists O2 [...] D LEVEL ONCE IN A LIFETIME-USE SMARTSET# 68408 Completed 08/26/2023, 07/15/2022, 03/13/2022, Additional history exists [...] encounter Medical Devices Implanted Type Area Hot Wire Glass Tube Cutter Device Identifier Shelf Expiration Date Model / Serial / Lot Lens Intraoc 18.5 - [id number] - [id number] Implanted:Qty: 1 on 04/03/2021 by Irvin Canchola MD at OR [facility] Left: Eye BAUSCH [employer] LOMB 01/03/2026 [id number] / [id number] / [id number] Lens Intraoc 18.5 - [id number] - [id number] Implanted:Qty: 1 on 04/10/2021 by Irvin Canchola MD at OR [facility] Right: Eye BAUSCH & LOMB 01/03/2026 [id number] / [id number] / [id number] documented as of this encounter Care Teams Banquet Line Cook Relationship Specialty Start Date End Date Ferny Sr DO [address] [place] [place] [address] PCP - General Internal Medicine 08/31/18 documented as of this encounter
--- OUTSIDE RECORDS SUMMARY | 2024-01-20 22:00 | External Medical Summary ---
Author Name Unknown Address Unknown Organization K01:LABORATORY [facility] – [place] - [address] [facility] [address] Laboratory Report Ordering Provider Test Date Status VALENTIN GAUTHIER 10/28/2023 16:11:14 Final Observation Date Value Abnormality Reference (Units ) Status SARS Coronavirus 2 10/28/2023 16:11:14 Negative N egative Final No SARS-CoV2 Coronavirus RNA detected by PCR (amplified probe).
This automated test was developed and its performance characteristics determined by [facility]. It has not been cleared or approved by the U.S. Food and Drug Administration (FDA). FDA does not require this test to go thru premarket FDA review. This test is used for clinical purposes. It should not be regarded as investigational or for research. This laboratory is certified under the Clinical Laboratory Improvement Amendments (CLIA) as qualified to perform high complexity clinical laboratory testing.

This test is a nucleic acid amplification test (NAAT), a reverse transcriptase polymerase chain reaction (RT-PCR) test, or a Centers for Disease Control-acceptable equivalent. The test is performed in a high complexity Clinical Laboratory Improvement Amendments-(CLIA) certified laboratory. The test is acceptable for SARS-CoV-2 diagnosis, surveillance, and travel within the [place] and to most countries. Please check with local testing authorities about requirements before travel.

The validation of bronchial specimens, tracheal aspirates, and sputum for this assay was developed and performance characteristics determined by [facility]. The validation of alternate specimen types has not been cleared or approved by the U.S. Food and Drug Administration (FDA). It has been determined that such clearance or approval is not necessary. Influenza virus A RNA [Prese nce] in Specimen by [facility] with probe detection 10/28/2023 16:11:14 Negative Negative Final No Influenza A RNA detected by PCR (amplified probe) Influenza virus B RNA [Prese nce] in Specimen by [facility] with probe detection 10/28/2023 16:11:14 Negative Negative Final No Influenza B RNA detected by PCR (amplified probe) Respiratory syncytial virus RNA [Identifier] in Specimen by [facility] with probe detection 10/28/2023 16:11:14 Negative Negative Final No Respiratory Syncytial Vir us RNA detected by PCR (amplified probe) Performing Location LABORATORY [address] [place]. [facility] [address]
--- OUTSIDE RECORDS SUMMARY | 2024-01-20 22:00 | External Medical Summary | Summary of Care ---
Author Name Unknown Organization [facility] Address [address] [place] [address] Phone [phone] Care Team Providers Care Hris Developer Name Role Phone Ferny Sr DO Primary Care Provider [phone] Reason for Visit * Reason Comments Infusion Reclast * Episode Based Medications (Routine) - Authorized Specialty Diagnoses / Procedures Referred By Contac t Referred To Contact Diagnoses [facility] current use of aromatase inhibitor Osteoporosis without current pathological fracture, unspecified osteoporosis type Procedures [facility] ZOLEDRONIC ACID 1MG Michelle Ruffin CRNP [address] [place] [address] Anc Hem/Onc [address] [address] Referral ID Status Reason Start Date Expiration Date V isits Requested Visits Authorized [id number] Authorized 09/01/2023 07/06/2099 [id number] Encounter Details Date Type Department Care Team (Latest Contact Info) Description 09/16/2023 11:45 AM EDT Hem/Onc Treatment Hematology/Oncology Treatment, [address] [address] long term current use of aromatase inhibitor*; Osteoporosis without current pathological fracture, unspecified osteoporosis type Allergies Active Allergy Reactions Criticality Noted Date Comments Clarithromycin Other (Please comment) Low 1 "Burning mouth" sensation. documented as of this encounter (statuses as of 11/07/2023) Medications Medication Sig Dispensed Refills Start Date End Date Status Living Harvest FoodsTOUCH ULTRA SYSTEM W/DEVICE KITIndications:DM type 2, goal A1c below 7 test once daily; dx 250.00 1 Kit 0 10/15/19 13 Active VITAMIN C 500 MG PO TABS Take 1 Tablet by mouth daily at noon. 0 11/05/19 14 Active ONETOUCH ULTRASOFT LANCETS MISCIndications:DM type 2, goal A1c below 7 test once daily; dx 250.00 1 Box 5 11/13/19 14 Active fluticasone (FLONASE) 50 MCG/ACT nasal spray Administer 2 Sprays into each nostril 2 times a day. 16 g 5 01/11/20 20 Active Additional Information Patient taking differently:2 [place] Each NostrilHS, Indications: allergies, Reported on 08/13/2022 fexofenadine (JANNY ALLERGY) 180 MG Tablet Take 1 Tab by mouth daily. 0 01/11/20 20 Active Additional Information Patient taking differently:180 mg OralHS, Indications: allergies, Reported on 08/13/2022 BiPAP every night at bedtime. 0 Active Vitamin B12 1000 MCG Oral Tablet Extended Release Take 1,000 mcg by mouth daily. 0 Active Vitamin D High Potency 25 MCG (1000 UT) Oral Capsule (Cholecalciferol) Take 1 Capsule by mouth daily. 0 Active GNP Calcium 1200 0086-7718 MG-UNIT Oral Tablet Chewable Take 1 Tablet by mouth daily. 0 Active Aspirin EC 81 MG Oral Tablet Delayed Release Take 1 Tablet by mouth in the morning. 0 01/05/20 22 Active Azelastine HCl 137 MCG/SPRAY Nasal Solution instill 2 sprays into each nostril twice a day 90 mL 0 02/07/20 22 Active Additional Information Patient taking differently: 2 sprays once daily, Reported on 07/15/2022 Docusate Sodium 100 MG Oral Capsule (Colace) Take 2 Capsules by mouth daily. 0 Active oxygen IN GASIndications:Sle ep apnea in adult 4 LPM bled through BIPAP during hours of sleep. 1 Each 0 04/10/20 22 Active OneTouch Ultra Blue In Vitro Strip (Glucose Blood)Indications: Type 2 diabetes, HbA1C goal < 8% ([facility]) TEST 3 X DAILY DX E11.9 100 Strip 5 06/11/20 22 Active ProAir HFA 108 (90 Base) MCG/ACT Inhalation Aerosol SolutionIndication s:Acute cough,COPD, group A, by GOLD 2017 classification ([facility]) Inhale 2 Puffs by mouth in the morning and 2 Puffs at noon and 2 Puffs in the evening and 2 Puffs before bedtime. 8 g 0 09/14/19 23 Active Additional Information Patient not taking.Reported on 08/13/2023 Atorvastatin Calcium 80 MG Oral Tablet (Lipitor)Indicatio ns:Dyslipidemia, goal LDL below 160 take 1 tablet by mouth once daily 90 Tablet 3 05/21/20 23 Active Furosemide 40 MG Oral Tablet (Lasix) take 1 tablet by mouth twice a day 180 Tablet 2 05/28/20 23 Active Empagliflozin 25 MG Oral Tablet (Jardiance)Indicat ions:Type 2 diabetes mellitus with diabetic peripheral angiopathy without gangrene, without long-term current use of insulin ([facility]),Type 2 diabetes mellitus with peripheral neuropathy ([facility]),Type 2 DM with CKD stage 3 and hypertension ([facility]),Type 2 diabetes, HbA1C goal < 8% ([facility]) Take 1 Tablet by mouth in the morning. 100 Tablet 2 08/04/19 24 Active Letrozole 2.5 MG Oral Tablet (Femara)Indication s:Malignant neoplasm of right breast in female, estrogen receptor positive, unspecified site of breast ([facility]) Take 1 Tablet by mouth in the morning. 100 Tablet 3 08/04/19 24 Active Pen [place] 32G X 4 MMIndications:Type 2 diabetes mellitus with peripheral neuropathy ([facility]) Use as directed. Once daily 100 Each 3 08/12/19 24 Active amLODIPine Besylate 2.5 MG Oral Tablet (Norvasc)Indicatio ns:Type 2 DM with CKD stage 3 and hypertension ([facility]) Take 1 Tablet by mouth in the morning. 100 Tablet 3 08/13/19 24 Active DULoxetine HCl 60 MG Oral Capsule Delayed Release Particles (Cymbalta) Take 1 Capsule by mouth at bedtime. 100 Capsule 2 08/20/19 24 Active Potassium Chloride ER 10 MEQ Oral Tablet Extended ReleaseIndications :Chronic diastolic congestive heart failure ([facility]) Take 1 Tablet by mouth in the morning. 100 Tablet 2 08/20/19 24 Active Montelukast Sodium 10 MG Oral Tablet (Singulair)Indicat ions:Allergic rhinitis Take 1 Tablet by mouth every evening. 100 Tablet 3 08/25/19 24 Active Ozempic (1 MG/DOSE) 4 MG/3ML Subcutaneous Solution Pen-injector (Semaglutide (1 MG/DOSE))Indicatio ns:Type 2 DM with CKD stage 3 and hypertension ([facility]CC) Inject 1 mg under the skin once a week. 9 mL 08/25/19 24 Active Folic Acid 1 MG Oral Tablet Take 1 Tablet by mouth in the morning. 100 Tablet 08/25/19 24 Active Repatha SureClick 140 MG/ML Subcutaneous Solution Auto-injector (evolocumab) Inject 140 mg (1 pen) under the skin every 14 days. Remove from refrigerator 30 minutes prior to injection. 6 mL 08/27/19 24 Active Gabapentin 300 MG Oral Capsule (Neurontin)Indicat ions:neuropathy Take one capsule by mouth in the evening and two capsule at bedtime 300 Capsule 09/04/19 24 Active Labetalol HCl 200 MG Oral Tablet (Normodyne)Indicat ions:HTN, goal: symptom mgmt only,Resistant hypertension,HTN, goal below 150/90,Fatigue, unspecified type Take 1 Tablet by mouth in the morning and 1 Tablet before bedtime. 200 Tablet 09/04/19 24 Active Ezetimibe 10 MG Oral Tablet (Zetia)Indications :Dyslipidemia, goal LDL below 70,Hyperlipidemia with target LDL less than 70,PAD (peripheral artery disease) ([facility]) Take 1 Tablet by mouth in the morning. 100 Tablet 09/11/19 24 Active Lisinopril 40 MG Oral TabletIndications: HTN, goal below 130/80 Take 1 Tablet by mouth in the morning. 100 Tablet 09/11/19 24 Active Melatonin 5 MG Oral Capsule Take 1 Capsule by mouth at bedtime. 0 024 Discontinued(Ct dication List Clean Up) Insulin Glargine Solostar 100 UNIT/ML Subcutaneous Solution Pen-injectorIndica tions:Type 2 diabetes, HbA1C goal < 8% ([facility]),Type 2 DM with CKD stage 3 and hypertension (HCC) Inject 30 Units under the skin every evening. 15 mL 3 03/20/20 23 024 Discontinued(Re fill) carBAMazepine ER 400 MG Oral Tablet Extended Release 12 Hour (Tegretol-Xr) Take 1 Tablet by mouth in the morning and 1 Tablet before bedtime. 200 Tablet 3 08/25/19 24 024 Discontinued oxyCODONE-Acetamin ophen 5-325 MG Oral Tablet (Percocet)Indicati ons:Disc disorder of lumbar region Take 1 Tablet by mouth every 8 hours as needed for Pain, Moderate. 90 Tablet 0 08/26/19 24 024 Discontinued documented as of this encounter (statuses as of 11/07/2023) Active Problems Problem Noted Date Diagnosed Date Osteoporosis without current pathological fractu re 08/27/2023 long term current use of aromatase inhibitor Type 2 [...] and oxygen 06/08 Overview: with 4 LPM [facility] Last Assessment & Plan: Compliant with BiPAP ADVANCE DIRECTIVE INFORMATION 12/07/2004 Overview: Yes, Patient instructed to provide copy of advance directive for provider to review and to be scanned into Electronic Medical Record Trigeminal neuralgia Mixed rhinitis Irritable bowel syndrome documented as of this encounter (statuses as of 11/07/2023) Resolved Problems Problem Noted Date Diagnosed Date Resolved Date Diabetes mellitus with stage 3 chronic kidney disease 07/15/2022 07/15/2022 Diabetes mellitus 07/15/2022 09/10/2022 Hypertensive heart disease without CHF 01/04/2022 07/15/2022 Open-angle glaucoma 06/14/2021 10/16/19 Atherosclerosis of [place] co ronary artery without angina pectoris 03/26/2021 [...] as of this encounter (statuses as of 11/07/2023) Immunizations Name Administration Dates Next Due COVID-19 mRNA, LNP-s, No Pre serve, 2-Dose Series ([employer]) 05/14/2021,09/21/2020,08/31/2020 COVID-19, LNP-s, No Preserve , Jose-sucrose, [...] Sign Reading Time Taken Comments Blood Pressure 157/62 09/16/2023 12:16 PM EDT Pulse 70 09/16/2023 12:16 PM EDT Temperature 37.2 C (98.9 F) 09/16/2023 12:16 PM E DT Respiratory Rate 18 09/16/2023 12:16 PM EDT Oxygen Saturation 90% 09/16/2023 12:16 PM EDT Inhaled Oxygen Concentration - - Weight - - Height - - Body Mass Index - - documented in this encounter Nursing Notes * Vi Ramos LPN - 09/16/2023 12:17 PM EDT 1115: Pt arrived for Reclast infusion. PIV in RFA. Pt tolerated well. VSS. Loco/phos WNL. Pt taking all supplements per order. No complaints at this time. 1140: Pt tolerated Reclast infusion well. PIV removed intact. Pt to follow up with . Discharged in stable condition. documented in this encounter Plan of Treatment Upcoming Encounters Date Type Department Care Team (Late st Contact Info) Description 12/03/2023 10:40 AM EDT Office Visit Family [address] [place] [address] [facility] [address] [facility] [address] 12/26/2023 11:00 AM EDT Office Visit Cardiology, [facility] [address] [facility] [place] [address] [place] [facility] Cardiology [facility] [address] [facility] [place] [address] 02/24/2024 11:00 AM EDT Laboratory Laboratory [facility] [address] [place] [phone] [facility] [address] [facility] [place] [address] 02/24/2024 12:00 PM EDT Office Visit Hematology/Oncolog y [facility] [address] [place] [phone] Michelle Ruffin CRNP [address] [place] [address] [place] [id number] 03/02/2024 2:30 PM EDT Hospital Encounter ENDO [facility], Endoscopy Room [facility] [address] [place] [phone] Landon Kline MD [address] [place] [address] 03/02/2024 2:30 PM EDT - 03/02/2024 3:00 PM EDT Surgery ENDO [facility], Endoscopy Room [facility] [address] [place] [phone] Landon Kline MD [address] [place] [address] COLONOSCOPY FLEXIBLE PROXIMAL DIAGNOSTIC 04/02/2024 10:30 AM EDT Office Visit Sleep Disorders Ctr [facility] [address] [place] [phone] Mara Archibald CRNP [address] [place] [address] 05/11/2024 11:15 AM EST Office Visit Dermatology [facility] [place] [address] [facility] [place] [address] Kingston Huertas MD [address] [facility] [place] [address] Scheduled Procedures Name Priority Associated Diagnoses Date/Ti [...] Screening 07/29/2024 07/29/2023 CKD HGB USE SMARTSET 70443 09/15/202409/15, 09/16/2023, 08/26/2023, Additional history exists CKD PHOS USE SMARTSET 60924 09/15/202409/04, 08/26/2023, 11/21/2022, Additional history exists O2 [...] D LEVEL ONCE IN A LIFETIME-USE SMARTSET# 29622 Completed 08/26/2023, 07/15/2022, 03/13/2022, Additional history exists [...] this encounter Medical Devices Implanted Type Area Surgical Assist Device Identifier Shelf Expiration Date Model / Serial / Lot Lens Intraoc 18.5 - [id number] - [id number] Implanted:Qty: 1 on 04/03/2021 by Irvin Canchola MD at [facility] Left: Eye [employer] 01/03/2026 [id number] / [id number] / [id number] Lens Intraoc 18.5 - [id number] - [id number] Implanted:Qty: 1 on 04/10/2021 by Irvin Canchola MD at OR [facility] Right: Eye [employer] 01/03/2026 [id number] / [id number] / [id number] documented as of this encounter Visit Diagnoses Diagnosis [facility] current use of aromatase inhibitor- Primary Use of aromatase inhibitors Osteoporosis without current pathological fracture, unspecified osteoporosis type History of colonic polyps Personal history of colonic polyps documented in this encounter Administered Medications Inactive Administered Medications - up to 3 most recent administrations Medication Order MAR Action Action Date Dose Rate Site NSS infusion 500 mL, Intravenous, at 50 mL/hr, CONTINUOUS, Starting on Fri09/16/23 at 1215, Until Fri09/16/23 at 1621 Start Infusion 09/16/2023 11:19 AM EDT 500 mL 50 mL/hr Zoledronic Acid (Reclast) 5 mg in 100 mL PREMIX ivpb 5 mg, IV Piggyback, ONCE, 1 dose, On Fri09/16/23 at 1245 Start Infusion 09/16/2023 11:19 AM EDT 5 mg 400 mL/hr documented in this encounter Care Teams Hris Developer Relationship Specialty Start Date End Date Ferny Sr DO [address] [facility] [address] PCP - General Internal Medicine 08/31/18 documented as of this encounter
--- OUTSIDE RECORDS SUMMARY | 2024-01-20 22:00 | External Medical Summary | Summary of Care ---
Author Name Unknown Organization [facility] Address [address] [place] [address] Phone [phone] Care Team Providers Care Low Pressure Firer Name Role Phone Ferny Sr DO Primary Care Provider [phone] Reason for Visit * Reason Onset Date Comments Advice 10/27/202310/26 Encounter Details Date Type Department Care Team (Late st Contact Info) Description 10/27/2023 Telephone Family Practice 65 [facility], [place] [address] [place] [address] Ferny Sr DO [address] [place] [address] Advice (10/26) Allergies Active Allergy Reactions Criticality Noted Date Comments Clarithromycin Other (Please comment) Low 06/200 1 "Burning mouth" sensation. documented as of this encounter (statuses as of 10/28/2023) Medications Medication Sig Dispensed Refills Start Date [...] 20 Active Additional Information Patient taking differently:2 [place] Each NostrilHS, Indications: allergies, Reported on 08/13/2022 [...] mouth daily. 0 Active GNP Calcium 1200 8148-8364 MG-UNIT Oral Tablet Chewable Take 1 Tablet [...] Type 2 diabetes, HbA1C goal < 8% ([facility]) TEST 3 X DAILY DX E11.9 100 Strip 5 06/11/20 22 Active ProAir HFA 108 (90 Base) MCG/ACT Inhalation Aerosol SolutionIndication s:Acute cough,COPD, group A, by GOLD 2017 classification ([facility]) Inhale 2 Puffs by mouth [...] 100 Tablet 3 08/04/19 24 Active Pen [place] 32G X 4 MMIndications:Type 2 diabetes mellitus [...] Tablet by mouth every evening. 100 Tablet 08/25/19 24 Active Ozempic (1 MG/DOSE) 4 [...] minutes prior to injection. 6 mL 3 08/27/19 24 Active Gabapentin 300 MG Oral Capsule (Neurontin)Indicat ions:neuropathy Take one capsule by mouth in the evening and two capsule at bedtime 300 Capsule 3 09/04/19 24 Active Labetalol HCl 200 MG Oral Tablet (Normodyne)Indicat ions:HTN, goal: symptom mgmt only,Resistant hypertension,HTN, goal below 150/90,Fatigue, unspecified type Take 1 Tablet by mouth in the morning and 1 Tablet before bedtime. 200 Tablet 3 09/04/19 24 Active Ezetimibe 10 MG Oral Tablet (Zetia)Indications :Dyslipidemia, goal LDL below 70,Hyperlipidemia with target LDL less than 70,PAD (peripheral artery disease) ([facility]) Take 1 Tablet by mouth in the morning. 100 Tablet 3 09/11/19 24 Active Lisinopril 40 MG Oral TabletIndications: HTN, goal below 130/80 Take 1 Tablet by mouth in the morning. 100 Tablet 3 09/11/19 24 Active Insulin Glargine Solostar 100 UNIT/ML Subcutaneous Solution Pen-injectorIndica tions:Type 2 diabetes, HbA1C goal < 8% ([facility]),Type 2 DM with CKD stage 3 and hypertension ([facility]) Inject 30 Units under the skin every evening. 30 mL 2 09/22/19 24 Active oxyCODONE-Acetamin ophen 5-325 MG Oral Tablet (Percocet)Indicati ons:Disc disorder of lumbar region Take 1 Tablet by mouth every 8 hours as needed for Pain, Severe. 90 Tablet 0 09/29/19 24 Active Amoxicillin 500 MG Oral Capsule (Amoxil) Take 4 Capsules by mouth once. One hour prior to appointment 0 09/29/19 24 Active Melatonin 10 MG Oral Tablet Take 1 Tablet by mouth at bedtime. 0 Active Molnupiravir 200 MG Oral Capsule Take 4 Capsules by mouth in the morning and 4 Capsules before bedtime. 40 Capsule 0 10/27/19 24 Active carBAMazepine ER 400 MG Oral Tablet Extended Release 12 Hour (Tegretol-Xr) Take 1 Tablet by mouth in the morning and 1 Tablet before bedtime. 200 Tablet 3 10/28/19 24 Active carBAMazepine ER 400 MG Oral Tablet Extended Release 12 Hour (Tegretol-Xr) Take 1 Tablet by mouth in the morning and 1 Tablet before bedtime. 200 Tablet 3 08/25/19 24 024 Discontinued Molnupiravir 200 MG Oral Capsule Take 4 Capsules by mouth in the morning and 4 Capsules before bedtime. 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 Type 2 [...] Last Assessment & Plan: Currently stable -continue Oneliair -has albuterol MDI and also nebulizer as [...] as of this encounter (statuses as of 10/28/2023) Resolved Problems Problem Noted Date Diagnosed Date Resolved Date Diabetes mellitus with stage 3 chronic kidney disease 07/15/2022 07/15/2022 Diabetes mellitus 07/15/2022 09/10/2022 Hypertensive heart disease without CHF 01/04/2022 07/15/2022 Open-angle glaucoma 06/14/2021 10/16/19 Atherosclerosis of [place] ronary artery without angina pectoris 03/26/2021 [...] as of this encounter (statuses as of 10/28/2023) Immunizations Name Administration Dates Next Due COVID-19 mRNA, LNP-s, No Pre serve, 2-Dose Series ([employer]) 05/14/2021,09/21/2020,08/31/2020 COVID-19, LNP-s, No Preserve , Jose-sucrose, Ages 12+ (Pfizer) 12/11/2021 COVID-19, MRNA-LNP, 23-24, P F, 30 MCG/0.3 mL, 12 YRS AND ABOVE, IM ([employer]) 04/29/2023 Covid-19, Mrna, Lnp-s, Pf, B [...] Telephone Encounter - Monse Butler OSA - 10/28/2023 1:34 PM EDT Requesting that Elizabeth call back * Telephone Encounter - Sasha Balderas LPN - 10/28/2023 10:57 AM EDT Patient is aware and will comply. Thank you * Telephone Encounter - Erma Fernandez DO - 10/28/2023 10:43 AM EDT Unfortunately, we have no options for treatment given the cost. Agree with recommendations given regarding supportive care. ED if oxygen saturation drops below 90. * Addendum Note - Elizabeth Tpoete [facility] - 10/28/2023 10:43 AM EDT Addended by: ELIZABETH TOPETE on: 10/28/2023 10:43 AM Modules accepted: Orders * Telephone Encounter - Elizabeth Topete RPh - 10/28/2023 10:31 AM EDT There are no patient assistance programs for those on medicare. Double checked with Pharm Reimbursement as well. Paxlovid is an absolute contraindication with patient's carbamazepine even with discontinuation it is not recommended immediately after. * Telephone Encounter - Sasha Balderas LPN - 10/28/2023 10:04 AM EDT Patient has diarrhea, some abd discomfort. Not breathless but increased sob. Pulse ox is 97 % with oxygen on. Advised to use pro air inhaler. Advised to drink some fluids and rest, keep oxygen on and try inhaler * Telephone Encounter - Monse Chen OSA - 10/28/2023 9:52 AM EDT Adarsh, , calling to advise that the med sent cost $878 and he cannot pay that. He is asking for advise, stating Fatmata is still feeling horrible. He asks you call him at [phone] * Addendum Note - Erma Fernandez DO - 10/27/2023 2:44 PM EDTAddended by: ERMA FERNANDEZ on: 10/27/2023 02:44 PM Modules accepted: Orders * Telephone Encounter - Erma Fernandez DO - 10/27/2023 2:44 PM EDT Rx sent. * Addendum Note - Sasha Balderas LPN - 10/27/2023 2:33 PM EDTAddended by: SASHA BALDERAS on: 10/27/2023 02:33 PM Modules accepted: Orders * Telephone Encounter - Sasha Balderas LPN - 10/27/2023 2:32 PM EDT [facility]. Pended med with confirmed pharmacy. Patient is aware and will comply. Thank you * Telephone Encounter - Erma Fernandez DO - 10/27/2023 2:12 PM EDT Most pharmacies likely will not carry these antivirals due to cost. Can try [facility] or [facility] to see if they carry? * Telephone Encounter - Monse Butler OSA - 10/27/2023 1:14 PM EDT Pharmacy does not carry what you called in Please call * Telephone Encounter - Sasha Balderas LPN - 10/27/2023 12:03 PM EDT Patient is aware and will comply. Thank you * Telephone Encounter - Erma Fernandez DO - 10/27/2023 11:57 AM EDT Pt cannot take Paxlovid due to too many interactions with her medications. We can use molnupiravir.She should call if this medication is too costly as these antivirals are no longer covered by the govt. * Telephone Encounter - Sasha Balderas LPN - 10/27/2023 11:19 AM EDT Patient states she has not been feeling well, decided to do a home covid test. Tested positive. States she started with uri symptoms 3 days ago. Diarrhea, irritated lungs, runny nose, upset stomach. States slight sob not severe. Does have a pulse ox--currently is 93 % Does wear oxygen at night only. If needs paxlovid, pharmacy confirmed. Thank you * Telephone Encounter - Monse Butler OSA - 10/27/2023 11:04 AM EDT Just tested for covid Took home test and is positive Wonders what to do next Please advise documented in this encounter Plan of Treatment Upcoming Encounters Date Type Department Care Team (Late st Contact Info) Description 12/03/2023 10:40 AM EDT Office Visit Family Practice [address], [place] [address] [place] [address] Ferny Sr, DO [address] [place], [place] [address] 12/26/2023 11:00 AM EDT [facility] [address] [place] [address] [facility] Cardiology [email or web address] [place] [address] 02/24/2024 11:00 AM EDT Laboratory Laboratory [facility] [address] [place] [phone] Naomi, [facility] [address] [place] [address] 02/24/2024 12:00 PM EDT Office Visit Hematology/Oncolog y [facility] [address] [place] [phone] Michelle Ruffin CRNP [address] [facility] [address] 03/02/2024 2:30 PM EDT Hospital Encounter ENDO O[facility], Endoscopy Room [facility] 132 [facility] [place] [phone] Landon Kline MD 132 [facility] [place] [address] 03/02/2024 2:30 PM EDT - 03/02/2024 3:00 PM EDT Surgery ENDO OSS, Endoscopy Room [facility] [address] [place] [phone] L[facility] [place] [address] COLONOSCOPY FLEXIBLE PROXIMAL DIAGNOSTIC 04/02/2024 10:30 AM EDT Office Visit Sleep Disorders Ctr [facility] [address] [place] [phone] Mara Archibald CRNP [address] [place] [address] 05/11/2024 11:15 AM EST [facility] [place] 200 [facility] [place] [address] Kingston Huertas MD 200 [facility] [place] [address] Scheduled Procedures Name Priority Associated Diagnoses Date/Ti me COLONOSCOPY FLEXIBLE PROXIMAL DIAGNOSTIC History of colonic polyps 03/02/2024 2:30 PM EDT Health Maintenance Due Date Last Done Comments Alpha-1 Antitrypsin 12/02/1963 Albumin/Creatinine Ratio 07/15/2023 023, 08/15/2021, 09/14/2020, Additional history exists COLONOSCOPY-ANNUAL AGES 18-100 09/05/2023 09/04/2022, 02/13/2015, 08/19/2011, Additional history exists Diabetic Foot Exam 11/14/2023 11/13/2022, 0 12/07/2021, 01/23/2021, Additional history exists HbA1c 01/27/2024 07/29/2023, 03/07, 11/13/2022, Additional history exists GFR 03/18/2024 09/16/2023, 08/08, 08/08/2023, Additional history exists Diabetic Eye Exam 06/09/2024 06/09/2023, , 12/06/2022, Additional history exists Depression Screening 07/29/2024 07/29/2023 CKD HGB USE SMARTSET 21897 09/15/202409/15, 09/16/2023, 08/26/2023, Additional history exists CKD PHOS USE SMARTSET 89895 09/15/202409/04, 08/26/2023, 11/21/2022, Additional history exists O2 ASSESSMENT COMPLETED IN PAST YEAR FOR COPD 09/15/2024 09/16/2023 DXA Scan 08/18/2025 08/18/2023, 03/2022, 10/19/2012, Additional history exists DTaP,Tdap,and Td Vaccines (3 - Td or Tdap) 09/17/2027 09/16/2017, 04/06/2008, 11/06/1995 Pneumococcal Vaccine: 65+ Years Completed 10/14/2014, 04/02/2011, 12/21/2002 Zoster Vaccines Completed 09/15/2019, 10/2018, 06/14/2009 Lung Cancer Screening Completed 05/16/2021 , 02/17/2020, 02/11/2019, Additional history exists COLONOSCOPY-EVERY 5 YRS AGES 18-100 Discontinued 09/04/2022, 02/13/2015, 08/19/2011, Additional history exists Influenza Vaccine (FLU shot) Completed 03/18/2023, 03/13/2022, 03/26/2021, Additional history exists COVID-19 Vaccine Completed 04/29/2023, 02/2022, 12/11/2021, Additional history exists VITAMIN D LEVEL ONCE IN A LIFETIME-USE SMARTSET# 00190 Completed 08/26/2023, 07/15/2022, 03/13/2022, Additional history exists [...] this encounter Medical Devices Implanted Type Area Nitroglycerin Separator Operator Device Identifier Shelf Expiration Date Model / Serial / Lot Lens Intraoc 18.5 - [id number] - [id number] Implanted:Qty: 1 on 04/03/2021 by Irvin Canchola MD at OR [facility] Left: Eye [employer]OMB 01/03/2026 [id number] / [id number] / [id number] Lens Intraoc 18.5 - [id number] - [id number] Implanted:Qty: 1 on 04/10/2021 by Irvin Canchola MD at OR [facility] Right: Eye BAUSCH & LOMB 01/03/2026 [id number] / [id number] / [id number] documented as of this encounter Care Teams Low Pressure Firer Relationship Specialty Start Date End Date Ferny Sr DO [address] [facility] [place] [address] PCP - General Internal Medicine 08/31/18 documented as of this encounter
--- OUTSIDE RECORDS SUMMARY | 2024-01-20 22:00 | External Medical Summary | Summary of Care ---
Author Name Unknown Organization [facility] Address [address] [place] [address] Phone [phone] Care Team Providers Care Crushing Foreman Name Role Phone Ferny Sr DO Primary Care Provider [phone] Encounter Details Date Type Department Care Team (Late st Contact Info) Description 10/28/2023 3:30 PM EDT Nurse Only Family Practice 65 [facility] [address] [place] [address] College, Nurse [facility] [address] [address] Arrived Allergies Active Allergy Reactions Criticality Noted Date Comments Clarithromycin Other (Please comment) Low 1 "Burning mouth" sensation. documented as of this encounter (statuses as of 10/28/2023) Medications Medication Sig Dispensed Refills Start Date End Date Status [employer] ULTRA SYSTEM W/DEVICE KITIndications:DM type 2, goal [...] 01/11/2020 Active Additional Information Patient taking differently:2 [place] Each NostrilHS, Indications: allergies, Reported on [...] mouth daily. 0 Active GNP Calcium 1200 6714-4564 MG-UNIT Oral Tablet Chewable Take 1 Tablet [...] pe 2 diabetes, HbA1C goal < 8% ([facility]) TEST 3 X DAILY DX E11.9 100 Strip 5 06/11/2022 Active ProAir HFA 108 (90 Base) MCG/ACT Inhalation Aerosol SolutionIndications: Acute cough,COPD, group A, by GOLD 2017 classification ([facility]) Inhale 2 Puffs by mouth in the [...] estrogen receptor positive, unspecified site of breast ([facility]) Take 1 Tablet by mouth in the morning. 100 Tablet 3 08/04/2023 Active Pen [place] 32G X 4 MMIndications:Type 2 diabetes mellitus with peripheral neuropathy ([facility]) Use as directed. Once daily 100 Each 08/12/2023 Active amLODIPine Besylate 2.5 MG Oral Tablet [...] Extended ReleaseIndications:C hronic diastolic congestive heart failure ([facility]) Take 1 Tablet by mouth in the [...] LDL less than 70,PAD (peripheral artery disease) ([facility]) Take 1 Tablet by mouth in the morning. 100 Tablet 3 09/11/2023 Active Lisinopril 40 MG Oral TabletIndications:HT N, goal below 130/80 Take 1 Tablet by mouth in the morning. 100 Tablet 3 09/11/2023 Active Insulin Glargine Solostar 100 UNIT/ML Subcutaneous Solution Pen-injectorIndicati ons:Type 2 diabetes, HbA1C goal < 8% ([facility]),Type 2 DM with CKD stage 3 and hypertension ([facility]) Inject 30 Units under the skin every [...] before bedtime. 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 Type 2 [...] 07/15/2022 Open-angle glaucoma 06/14/2021 10/16/19 Atherosclerosis of [place] ronary artery without angina pectoris 03/26/2021 [...] mRNA, LNP-s, No Pre serve, 2-Dose Series ([employer]) 05/14/2021,09/21/2020,08/31/2020 COVID-19, LNP-s, No Preserve , Jose-sucrose, Ages 12+ (Pfizer) 12/11/2021 COVID-19, MRNA-LNP, 23-24, P F, 30 MCG/0.3 mL, 12 YRS AND ABOVE, IM ([employer]) 04/29/2023 Covid-19, Mrna, Lnp-s, Pf, B ivalent, [...] Sign Reading Time Taken Comments Blood Pressure - - Pulse - - Temperature - - Respiratory Rate - - Oxygen Saturation 94% 10/28/2023 4:11 PM EDT room air Inhaled Oxygen Concentration - - Weight - - Height - - Body Mass Index - - documented in this encounter Progress Notes * Sasha Balderas LPN - 10/28/2023 4:11 PM EDT Swab per order. documented in this encounter Plan of Treatment Upcoming Encounters Date Type Department Care Team (Late st Contact Info) Description 12/03/2023 10:40 AM EDT Office Visit Family Practice 65 [facility] [place] [address] [facility] [place] [address] Ferny Sr, 293 [facility], [place] [address] 12/26/2023 11:00 AM EDT [facility] [address] [place] [address] [facility] Cardiology [facility] [address] [place] [address] 02/24/2024 11:00 AM EDT Laboratory Laboratory [facility] [place] [address] [place] [phone] [place], [facility] [address] [place] [address] 02/24/2024 12:00 PM EDT Office Visit Hematology/Oncolog y [facility] [place] [address] [place] [phone] Michelle Ruffin CRNP [address] [place] [address] [place] [address] 03/02/2024 2:30 PM EDT Hospital Encounter ENDO OSSC, Endoscopy Room [facility] [address] [place] [phone] Landon Kline MD [address] [place] [address] 03/02/2024 2:30 PM EDT - 03/02/2024 3:00 PM EDT Surgery ENDO OSS, Endoscopy Room [facility] [address] [place] [phone] Landon Kline MD [address] [place] [address] COLONOSCOPY FLEXIBLE PROXIMAL DIAGNOSTIC 04/02/2024 10:30 AM EDT Office Visit Sleep Disorders Ctr [facility] [place] [address] [place] [phone] Mara Archibald CRNP [address] [place] [address] 05/11/2024 11:15 AM EST Office Visit Dermatology [facility] [place] [address] [place] [address] Kingston Huertas MD 200 [facility], [place] [address] Pending Results Name Type Priority Associated Diagnoses Date /Time INFLUENZA A/B RSV SARS-COV2,PCR Lab Routine URI (upper respiratory infection) 10/28/2023 4:11 PM EDT Scheduled Procedures Name Priority Associated Diagnoses Date/Ti [...] Screening 07/29/2024 07/29/2023 CKD HGB USE SMARTSET 89042 09/15/202409/15, 09/16/2023, 08/26/2023, Additional history exists CKD PHOS USE SMARTSET 31748 09/15/202409/04, 08/26/2023, 11/21/2022, Additional history exists O2 ASSESSMENT COMPLETED IN PAST YEAR FOR COPD 09/15/2024 09/16/2023 DXA Scan 08/18/2025 08/18/2023, 02/0 03/2022, 10/19/2012, [...] D LEVEL ONCE IN A LIFETIME-USE SMARTSET# 45278 Completed 08/26/2023, 07/15/2022, 03/13/2022, Additional history exists [...] this encounter Medical Devices Implanted Type Area Retirement Sales Consultant Device Identifier Shelf Expiration Date Model / Serial / Lot Lens Intraoc 18.5 - [id number] - [id number] Implanted:Qty: 1 on 04/03/2021 by Irvin Canchola MD at OR [facility] Left: Eye [employer] 01/03/2026 [id number] / [id number] / [id number] Lens Intraoc 18.5 - [id number] - [id number] Implanted:Qty: 1 on 04/10/2021 by Irvin Canchola MD at OR [facility] Right: Eye [employer]CH [employer]OMB 01/03/2026 [id number] / [id number] / [id number] documented as of this encounter Visit Diagnoses Diagnosis URI (upper respiratory infection)- Primary Acute upper respiratory infections of unspecified site History of colonic polyps Personal history of colonic polyps documented in this encounter Care Teams Crushing Foreman Relationship Specialty Start Date End Date Ferny Sr DO [address] [place] [address] PCP - General Internal Medicine 08/31/18 documented as of this encounter
--- OUTSIDE RECORDS SUMMARY | 2024-01-20 22:00 | External Medical Summary | Summary of Care ---
Author Name Unknown Organization [facility] Address [address] [place] [address] Phone [phone] Care Team Providers Care Fabric Worker Foreman Name Role Phone Ferny Sr DO Primary Care Provider [phone] Reason for Visit * Reason Onset Date Comments Advice 10/27/202310/26 Encounter Details Date Type Department Care Team (Late st Contact Info) Description 10/27/2023 Telephone Family Practice 65 [facility] [place] [address] [place] [address] Ferny Sr DO 293 [place] [address] Advice (10/26) Allergies Active Allergy [...] 20 Active Additional Information Patient taking differently:2 [place] Each NostrilHS, Indications: allergies, Reported on 08/13/2022 [...] mouth daily. 0 Active GNP Calcium 1200 9173-9563 MG-UNIT Oral Tablet Chewable Take 1 Tablet [...] Type 2 diabetes, HbA1C goal < 8% ([facility] [...] 100 Tablet 3 08/04/19 24 Active Pen [place] 32G X 4 MMIndications:Type 2 diabetes mellitus [...] LDL less than 70,PAD (peripheral artery disease) ([facility]) Take 1 Tablet by mouth in the morning. 100 Tablet 3 09/11/19 24 Active Lisinopril 40 MG Oral TabletIndications: HTN, goal below 130/80 Take 1 Tablet by mouth in the morning. 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 Patient came here to be swabbed. They don't qualify for assistance program due to income. Elizabeth Cui, Pharm D, BCACP Clinical Pharmacist [address] [facility] 10/28/2023, 4:21 PM Ph. [phone] * Addendum Note - Sasha Balderas CHINA Valenzuela - 10/28/2023 3:41 PM EDTAddended by: VICSASHA E on: 10/28/2023 03:41 PM Modules accepted: Orders * Telephone Encounter - Sasha Balderas LPN - 10/28/2023 3:39 PM EDT Please add patient to nurse schedule, she will be driving up to have a swab done. Please let nursing know when they arrive. Thank you * Telephone Encounter - Monse Butler OSA - 10/28/2023 3:10 PM EDT Would like to have Sasha or Elizabeth call back * Telephone Encounter - Monse Butler OSA - 10/28/2023 1:34 PM EDT Requesting that Elizabeth call back * Telephone Encounter - Elizabeth Topete RPh - 10/28/2023 1:26 PM EDT Called and left message on patient's cell phone. The spoke to patient and on 's phone. Advised them to call [employer] for patient assistance program Elizabeth Cui, Pharm D, BCACP Clinical Pharmacist [address] [facility] 10/28/2023, 4:21 PM Ph. [phone] * Telephone Encounter - Sasha Balderas LPN - 10/28/2023 10:57 AM EDT Patient is aware and will comply. Thank you * Telephone Encounter - Erma Fernandez DO - 10/28/2023 10:43 AM EDT Unfortunately, we have no options for treatment given the cost. Agree with recommendations given regarding supportive care. ED if oxygen saturation drops below 90. * Addendum Note - Elizabeth Topete RP - 10/28/2023 10:43 AM EDT Addended by: [...] horrible. He asks you call him at [phone] * Addendum Note - Erma Fernandez DO [...] 10/27/2023 2:32 PM EDT [facility]. Pended med with confirmed pharmacy. [...] AM EDT Office Visit Family Practice 65 [facility] [place] 293 [facility] [place] [place] [address] Ferny Sr DO 293 [facility] [place] [address] 12/26/2023 11:00 AM EDT Office Visit Cardiology, [facility] 132 [facility] [place] [address] [facility] Cardiology [facility] [address] [place], [place] [address] 02/24/2024 11:00 AM EDT Laboratory Laboratory [facility] [address] [place] [phone] [place], [facility] [address] [place], [place] [address] 02/24/2024 12:00 PM EDT Office Visit Hematology/Oncolog y [facility] [address] [place], [place] [address] Michelle Ruffin CRNP [address] [place] [address] [place] [address] 03/02/2024 2:30 PM EDT Hospital Encounter ENDO OSSC, Endoscopy Room [facility] [address] [place] [phone] Landon Kline MD [address] [place] [address] 03/02/2024 2:30 PM EDT - 03/02/2024 3:00 PM EDT Surgery ENDO OSSC, Endoscopy Room [facility] [address] [place] [phone] Landon Kline MD [address] [place] [address] COLONOSCOPY FLEXIBLE PROXIMAL DIAGNOSTIC 04/02/2024 10:30 AM EDT Office [facility] [employer] [facility] [place] [phone] Mara Archibald CRNP [address] [place] [address] 05/11/2024 11:15 AM EST Office Visit Dermatology [facility] Naomi [place] 200 [facility] [place] [address] [place] Huertas MD 200 [facility] [place] [address] Pending Results Name Type Priority Associated Diagnoses Date /Time INFLUENZA A/B RSV SARS-COV2,PCR Lab Routine URI (upper respiratory infection) 10/28/2023 4:11 PM EDT Scheduled Orders Name Type Priority Associated Diagnoses Orde r Schedule INFLUENZA A/B RSV SARS-COV2,PCR Lab Routine URI (upper respiratory infection) Expected: 10/28/2023 (Approximate), Expires: 10/27/2024 Scheduled Procedures Name Priority Associated Diagnoses Date/Ti [...] Screening 07/29/2024 07/29/2023 CKD HGB USE SMARTSET 52847 09/15/202409/15, 09/16/2023, 08/26/2023, Additional history exists CKD PHOS USE SMARTSET 33644 09/15/202409/04, 08/26/2023, 11/21/2022, Additional history exists O2 [...] D LEVEL ONCE IN A LIFETIME-USE SMARTSET# 38985 Completed 08/26/2023, 07/15/2022, 03/13/2022, Additional history exists [...] this encounter Medical Devices Implanted Type Area Is Manager Device Identifier Shelf Expiration Date Model / Serial / Lot Lens Intraoc 18.5 - [id number] - [id number] Implanted:Qty: 1 on 04/03/2021 by Irvin Canchola MD at OR [facility] Left: Eye [employer]OMB 01/03/2026 [id number] / [id number] / [id number] Lens Intraoc 18.5 - [id number] - [id number] Implanted:Qty: 1 on 04/10/2021 by Irvin Canchola MD at OR [facility] Right: Eye BAUSCH & LOMB 01/03/2026 [id number] / [id number] / [id number] documented as of this encounter Visit Diagnoses Diagnosis URI (upper respiratory infection)- Primary Acute upper respiratory infections of unspecified site History of colonic polyps Personal history of colonic polyps documented in this encounter Care Teams Fabric Worker Foreman Relationship Specialty Start Date End Date Ferny Sr DO [address] [place] [address] PCP - General Internal Medicine 08/31/18 documented as of this encounter
--- OUTSIDE RECORDS SUMMARY | 2024-01-20 22:00 | External Medical Summary | Summary of Care ---
Author Name Unknown Organization [facility] Address [address] [place] [address] Phone [phone] Care Team Providers Care 911 Emergency Dispatcher Name Role Phone Ferny Sr DO Primary Care Provider [phone] Reason for Visit * Reason Onset Date Comments Advice 10/27/202310/26 Encounter Details Date Type Department Care Team (Late st Contact Info) Description 10/27/2023 Telephone Family Practice 65 [facility], [place] [address] [place] [address] Ferny Sr DO 293 [place] [address] Advice (10/26) Allergies Active Allergy [...] 20 Active Additional Information Patient taking differently:2 [place] Each NostrilHS, Indications: allergies, Reported on 08/13/2022 [...] mouth daily. 0 Active GNP Calcium 1200 7434-2845 MG-UNIT Oral Tablet Chewable Take 1 Tablet [...] Type 2 diabetes, HbA1C goal < 8% ([facility]) TEST 3 X DAILY DX E11.9 100 Strip 5 06/11/20 22 Active ProAir HFA 108 (90 Base) MCG/ACT Inhalation Aerosol SolutionIndication s:Acute cough,COPD, group A, by GOLD 2017 classification ([facility]) Inhale 2 Puffs by mouth [...] 100 Tablet 3 08/04/19 24 Active Pen [place] 32G X 4 MMIndications:Type 2 diabetes mellitus [...] LDL less than 70,PAD (peripheral artery disease) ([facility]) Take 1 Tablet by mouth in the morning. 100 Tablet 3 09/11/19 24 Active Lisinopril 40 MG Oral TabletIndications: HTN, goal below 130/80 Take 1 Tablet by mouth in the morning. 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 * Addendum Note - Elizabeth Topete [facility] - 10/28/2023 10:43 AM EDT Addended by: [...] horrible. He asks you call him at [phone] * Addendum Note - Erma Fernandez DO [...] 10/27/2023 2:32 PM EDT [facility]. Pended med with confirmed pharmacy. [...] EDT Office Visit Family Practice [address], [place] [address] [place] [address] Ferny Sr, DO [address] [place], [place] [address] 12/26/2023 11:00 AM EDT [facility] [address] [place] [address] [facility] Cardiology [facility] [place] [address] 02/24/2024 11:00 AM EDT Laboratory Laboratory [facility] [address] [place] [phone] [place], [facility] [address] [place] [address] 02/24/2024 12:00 PM EDT Office Visit Hematology/Oncolog y [facility] [address] [place] [address] Michelle Ruffin CRNP [facility] [address] 03/02/2024 2:30 PM EDT Hospital Encounter ENDO OSSC, Endoscopy Room [facility] 132 [facility] [place] [phone] Landon Kline MD 132 [facility] [place] [address] 03/02/2024 2:30 PM EDT - 03/02/2024 3:00 PM EDT Surgery ENDO OSS, Endoscopy Room [facility] [address] [place] [phone] Landon Kline MD [facility] [place] [address] COLONOSCOPY FLEXIBLE PROXIMAL DIAGNOSTIC 04/02/2024 10:30 AM EDT Office Visit Sleep Disorders Ctr [facility] [address] [place] [phone] Mara Archibald CRNP [address] [place] [address] 05/11/2024 11:15 AM EST Office Visit Dermatology [facility] [place] 200 [place] [address] Kingston Huertas MD 200 [place] [address] Scheduled Procedures Name Priority Associated Diagnoses Date/Ti [...] Screening 07/29/2024 07/29/2023 CKD HGB USE SMARTSET 75216 09/15/202409/15, 09/16/2023, 08/26/2023, Additional history exists CKD PHOS USE SMARTSET 32225 09/15/202409/04, 08/26/2023, 11/21/2022, Additional history exists O2 [...] D LEVEL ONCE IN A LIFETIME-USE SMARTSET# 29900 Completed 08/26/2023, 07/15/2022, 03/13/2022, Additional history exists [...] this encounter Medical Devices Implanted Type Area Inspector Line Device Identifier Shelf Expiration Date Model / Serial / Lot Lens Intraoc 18.5 - [id number] - [id number] Implanted:Qty: 1 on 04/03/2021 by Irvin Canchola MD at OR [facility] Left: Eye [employer]OMB 01/03/2026 [id number] / [id number] / [id number] Lens Intraoc 18.5 - [id number] - [id number] Implanted:Qty: 1 on 04/10/2021 by Irvin Canchola MD at OR [facility] Right: Eye [employer]CH [employer] LOMB 01/03/2026 [id number] / [id number] / [id number] documented as of this encounter Care Teams 911 Emergency Dispatcher Relationship Specialty Start Date End Date Ferny Sr DO [address] [facility] [place] [place] [address] PCP - General Internal Medicine 08/31/18 documented as of this encounter
--- OUTSIDE RECORDS SUMMARY | 2024-01-20 22:00 | External Medical Summary | Summary of Care ---
Author Name Unknown Organization [facility] Address [address] [place] [address] Phone [phone] Care Team Providers Care Boiler Blower Name Role Phone Ferny Sr DO Primary Care Provider [phone] Reason for Visit * Reason Onset Date Comments Advice 10/27/202310/26 Encounter Details Date Type Department Care Team (Late st Contact Info) Description 10/27/2023 Telephone Family Practice 65 [facility] [place] [address] [place] [address] Ferny Sr DO 293 [place] [address] Advice (10/26) Allergies Active Allergy [...] 20 Active Additional Information Patient taking differently:2 [place] Each NostrilHS, Indications: allergies, Reported on 08/13/2022 [...] mouth daily. 0 Active GNP Calcium 1200 2289-2975 MG-UNIT Oral Tablet Chewable Take 1 Tablet [...] Type 2 diabetes, HbA1C goal < 8% ([facility]) TEST 3 X DAILY DX E11.9 100 Strip 5 06/11/20 22 Active ProAir HFA 108 (90 Base) MCG/ACT Inhalation Aerosol SolutionIndication s:Acute cough,COPD, group A, by GOLD 2017 classification ([facility]) Inhale 2 Puffs by mouth in [...] 100 Tablet 3 08/04/19 24 Active Pen [place] 32G X 4 MMIndications:Type 2 diabetes mellitus [...] LDL less than 70,PAD (peripheral artery disease) ([facility]) Take 1 Tablet by mouth in the morning. 100 Tablet 3 09/11/19 24 Active Lisinopril 40 MG Oral TabletIndications: HTN, goal below 130/80 Take 1 Tablet by mouth in the morning. 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 * Addendum Note - Elizabeth Topete RPh - 10/28/2023 10:43 AM EDT Addended by: [...] horrible. He asks you call him at [phone] * Addendum Note - Erma Fernandez DO [...] 10/27/2023 2:32 PM EDT [facility]irmed [facility] medication. Pended med with confirmed pharmacy. [...] 10:40 AM EDT Office Visit Family Practice [address] [place] [address], [place] 293 [facility] [place] [address] Ferny Sr, 293 [facility] [place] [address] 12/26/2023 11:00 AM EDT Office Visit Cardiology [facility] [address] [place] [address] [facility] Cardiology [facility] [address] [place] [address] 02/24/2024 11:00 AM EDT Laboratory Laboratory [facility] [address] [place] [phone] Naomi Lab [facility] 200 [facility] [place] [address] 02/24/2024 12:00 PM EDT Office Visit Hematology/Oncolog y [facility] [address] [place] [phone] Michelle Ruffin, CHE 400 [facility] [place] [address] 03/02/2024 2:30 PM EDT Hospital Encounter ENDO OSSC, Endoscopy Room [facility] [address] [place] [phone] Landon Kline MD [address] [place] [address] 03/02/2024 2:30 PM EDT - 03/02/2024 3:00 PM EDT Surgery ENDO OSSC, Endoscopy Room [facility] [address] [place] [phone] Landon Kline MD [address] [place] [address] COLONOSCOPY FLEXIBLE PROXIMAL DIAGNOSTIC 04/02/2024 10:30 AM EDT Office Visit Sleep Disorders Ctr [facility] [address] [place] [phone] Mara Archibald CRNP [address] [place] [address] 05/11/2024 11:15 AM EST Office Visit Dermatology [facility] 200 [facility] [place] [address] [place] Huertas MD [address] [place] [address] Scheduled Procedures Name Priority Associated Diagnoses Date/Ti [...] Screening 07/29/2024 07/29/2023 CKD HGB USE SMARTSET 38913 09/15/202409/15, 09/16/2023, 08/26/2023, Additional history exists CKD PHOS USE SMARTSET 62169 09/15/202409/04, 08/26/2023, 11/21/2022, Additional history exists O2 [...] D LEVEL ONCE IN A LIFETIME-USE SMARTSET# 20454 Completed 08/26/2023, 07/15/2022, 03/13/2022, Additional history exists [...] this encounter Medical Devices Implanted Type Area Transportation Officer Device Identifier Shelf Expiration Date Model / Serial / Lot Lens Intraoc 18.5 - [id number] - [id number] Implanted:Qty: 1 on 04/03/2021 by Irvin Canchola MD at OR [facility] Left: Eye [employer] 01/03/2026 [id number] / [id number] / [id number] Lens Intraoc 18.5 - [id number] - [id number] Implanted:Qty: 1 on 04/10/2021 by Irvin Canchola MD at OR [facility] Right: Eye [employer]CH [employer] LOMB 01/03/2026 [id number] / [id number] / [id number] documented as of this encounter Care Teams Boiler Blower Relationship Specialty Start Date End Date Ferny Sr DO [address] [place] [address] PCP - General Internal Medicine 08/31/18 documented as of this encounter
--- OUTSIDE RECORDS SUMMARY | 2024-01-20 22:00 | External Medical Summary | Summary of Care ---
Author Name Unknown Organization [facility] Address [address] [place] [address] Phone [phone] Care Team Providers Care Technical Programs Manager Name Role Phone Ferny Sr DO Primary Care Provider [phone] Reason for Visit * Reason Onset Date Comments Advice 10/27/202310/26 Encounter Details Date Type Department Care Team (Late st Contact Info) Description 10/27/2023 Telephone Family Practice 65 [facility], [facility] [address] [place] [address] Ferny Sr DO [address] [place] [address] Advice (10/26) Allergies Active Allergy [...] 20 Active Additional Information Patient taking differently:2 [place] Each NostrilHS, Indications: allergies, Reported on 08/13/2022 [...] mouth daily. 0 Active GNP Calcium 1200 6341-7458 MG-UNIT Oral Tablet Chewable Take 1 Tablet [...] Type 2 diabetes, HbA1C goal < 8% ([facility]) TEST 3 X DAILY DX E11.9 100 Strip 5 06/11/20 22 Active ProAir HFA 108 (90 Base) MCG/ACT Inhalation Aerosol SolutionIndication s:Acute cough,COPD, group A, by GOLD 2017 classification ([facility]) Inhale 2 Puffs by mouth [...] 100 Tablet 3 08/04/19 24 Active Pen [place] 32G X 4 MMIndications:Type 2 diabetes mellitus [...] LDL less than 70,PAD (peripheral artery disease) ([facility]) Take 1 Tablet by mouth in the morning. 100 Tablet 3 09/11/19 24 Active Lisinopril 40 MG Oral TabletIndications: HTN, goal below 130/80 Take 1 Tablet by mouth in the morning. 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 Type 2 [...] 07/15/2022 Open-angle glaucoma 06/14/2021 10/16/19 Atherosclerosis of [place] co ronary artery without angina pectoris 03/26/2021 [...] mRNA, LNP-s, No Pre serve, 2-Dose Series ([employer]) 05/14/2021,09/21/2020,08/31/2020 COVID-19, LNP-s, No Preserve , Jose-sucrose, Ages 12+ ([employer]) 12/11/2021 COVID-19, MRNA-LNP, 23-24, P F, 30 MCG/0.3 mL, 12 YRS AND ABOVE, IM ([facility]) 04/29/2023 Covid-19, Mrna, Lnp-s, Pf, B [...] Addendum Note - Sasha Balderas LPN - 10/28/2023 3:41 PM EDTAddended by: SSAHA BALDERAS on: 10/28/2023 03:41 PM Modules accepted: Orders [...] discontinuation it is not recommended immediately after. Electronically signed by [facility], located within [facility] at 10/28/2023 10:43 AM EDT * Telephone Encounter - Sasha Balderas LPN [...] horrible. He asks you call him at [phone] * Addendum Note - Erma Fernandez DO [...] 10/27/2023 2:32 PM EDT [facility] medication. Pended med with [...] EDT Office Visit Family Practice [address] [facility] [address] [place] [address] Ferny Sr, 293 [place] [address] 12/26/2023 11:00 AM EDT Office Visit Cardiology [facility] 132 [place] [address] [facility] Cardiology [facility] 132 [place] [address] 02/24/2024 11:00 AM EDT Laboratory Laboratory [facility] [address] [place] [phone] Naomi Lab [facility] [address] [place] [address] 02/24/2024 12:00 PM EDT Office Visit Hematology/Oncolog y [facility] [address] [place] [phone] Michelle Ruffin CRNP [address] [place], [place] [address] [address] 03/02/2024 2:30 PM EDT Hospital Encounter ENDO [facility], Endoscopy Room [facility] [address] [place] [phone] Landon Kline MD [address] [place] [address] 03/02/2024 2:30 PM EDT - 03/02/2024 3:00 PM EDT Surgery ENDO [facility], Endoscopy Room [facility] [address] [facility] [place] [phone] Landon Kline MD [address] [place] [address] COLONOSCOPY FLEXIBLE PROXIMAL DIAGNOSTIC 04/02/2024 10:30 AM EDT Office Visit Sleep Disorders Ctr [facility] [address] [facility] [phone] Mara Archibald CRNP [address] [place] [address] 05/11/2024 11:15 AM EST Office Visit Dermatology [facility] [address] [place] [address] Kingston Huertas MD [address] [place] [address] Scheduled Orders Name Type Priority Associated Diagnoses [...] Screening 07/29/2024 07/29/2023 CKD HGB USE SMARTSET 65911 09/15/202409/15, 09/16/2023, 08/26/2023, Additional history exists CKD PHOS USE SMARTSET 71122 09/15/202409/04, 08/26/2023, 11/21/2022, Additional history exists O2 [...] D LEVEL ONCE IN A LIFETIME-USE SMARTSET# 05469 Completed 08/26/2023, 07/15/2022, 03/13/2022, Additional history exists [...] this encounter Medical Devices Implanted Type Area Staffing Associate Device Identifier Shelf Expiration Date Model / Serial / Lot Lens Intraoc 18.5 - [id number] - [id number] Implanted:Qty: 1 on 04/03/2021 by Irvin Canchola MD at OR [facility] Left: Eye [employer]OM[employer] 01/03/2026 [id number] / [id number] / [id number] Lens Intraoc 18.5 - [id number] - [id number] Implanted:Qty: 1 on 04/10/2021 by Irvin Canchola MD at OR [facility] Right: Eye BA[employer]CH [employer] LOMB 01/03/2026 [id number] / [id number] / [id number] documented as of this encounter Visit Diagnoses Diagnosis URI (upper respiratory infection)- Primary Acute upper respiratory infections of unspecified site History of colonic polyps Personal history of colonic polyps documented in this encounter Care Teams Technical Programs Manager Relationship Specialty Start Date End Date Ferny Sr DO [address] [place] [address] PCP - General Internal Medicine 08/31/18 documented as of this encounter
--- OUTSIDE RECORDS SUMMARY | 2024-01-20 22:01 | External Medical Summary | Summary of Care ---
Author Name Unknown Organization [facility] Address [address] [place] [address] Phone [phone] Care Team Providers Care Dance Teacher Name Role Phone Ferny Sr DO Primary Care Provider [phone] Reason for Visit * Reason Onset Date Comments Advice 10/27/202310/26 Encounter Details Date Type Department Care Team (Late st Contact Info) Description 10/27/2023 Telephone Family Practice 65 [facility] [place] [address] [place] [address] Ferny Sr DO [address] [place] [address] Advice (10/26) Allergies Active Allergy [...] 0 Active Additional Information Patient taking differently:2 [place] Each NostrilHS, Indications: allergies, Reported on 08/13/2022 [...] mouth daily. 0 Active GNP Calcium 1200 9619-2788 MG-UNIT Oral Tablet Chewable Take 1 Tablet [...] ype 2 diabetes, HbA1C goal < 8% ([facility] [...] the morning. 100 Tablet 3 4 Active Pen [place] 32G X 4 MMIndications:Type 2 diabetes mellitus with peripheral neuropathy (HCC) Use as directed. Once daily 100 Each 3 4 Active amLODIPine Besylate 2.5 MG [...] a week. 9 mL 3 4 Active carBAMazepine ER 400 MG Oral Tablet Extended Release 12 Hour (Tegretol-Xr) Take 1 Tablet by mouth in the morning and 1 Tablet before bedtime. 200 Tablet 3 4 Active Folic Acid 1 MG [...] LDL less than 70,PAD (peripheral artery disease) ([facility]) Take 1 Tablet by mouth in the morning. 100 Tablet 3 4 Active Lisinopril 40 MG Oral TabletIndications:H TN, goal below 130/80 Take 1 Tablet by mouth in the morning. 100 Tablet 3 4 Active Insulin Glargine Solostar 100 UNIT/ML Subcutaneous Solution Pen-injectorIndicat ions:Type 2 diabetes, HbA1C goal < 8% ([facility] [...] before bedtime. 40 Capsule 0 4 Active Molnupiravir 200 MG Oral Capsule Take 4 Capsules by mouth in the morning and 4 Capsules before bedtime. 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 Sr -has Lizbet p.r.n. Hyperlipidemia with target LDL less than [...] with 4 LPM [facility] Last Assessment & Plan: [...] Open-angle glaucoma 06/14/2021 10/16/19 22 Atherosclerosis of [place] co ronary artery without angina pectoris 03/26/2021 [...] mRNA, LNP-s, No Pre serve, 2-Dose Series ([employer]) 05/14/2021,09/21/2020,08/31/2020 COVID-19, LNP-s, No Preserve , Jose-sucrose, Ages 12+ ([employer]) 12/11/2021 COVID-19, MRNA-LNP, 23-24, P F, 30 MCG/0.3 mL, 12 YRS AND ABOVE, IM ([employer]) 04/29/2023 Covid-19, Mrna, Lnp-s, Pf, B ivalent, 30 Mcg, IM, 12 yrs and above ([employer]) 05/14/2022 Pneumococcal Conjugate Vacc, 13 Valent (Prevnar) [...] encounter Miscellaneous Notes * Telephone Encounter - Sasha Balderas LPN - 10/28/2023 10:04 AM EDT Patient has diarrhea, some abd discomfort. Not breathless but increased sob. Pulse ox is 97 % with oxygen on. Advised to use pro air inhaler. * Telephone Encounter - Monse Chen OSA - 10/28/2023 9:52 AM EDT Adarsh, , calling to advise that the med sent cost $878 and he cannot pay that. He is asking for advise, stating Fatmata is still feeling horrible. He asks you call him at [phone] * Addendum Note - Erma Fernandez DO - 10/27/2023 2:44 PM EDTAddended by: ERMA FERNANDEZ on: 10/27/2023 02:44 PM Modules accepted: Orders * Telephone Encounter - Erma Fernandez DO - 10/27/2023 2:44 PM EDT Rx sent. * Addendum Note - Sasha Balderas LPN - 10/27/2023 2:33 PM EDTAddended by: SASHA BALDERAS on: 10/27/2023 02:33 PM Modules accepted: Orders * Telephone Encounter - Sasha aBlderas LPN - 10/27/2023 2:32 PM EDT [facility]. Pended med with [...] Please call * Telephone Encounter - Sasha Balderas, MARKER DELIVERY - 10/27/2023 12:03 PM EDT Patient is aware and will comply. Thank you * Telephone Encounter - Erma Fernandez DO - 10/27/2023 11:57 AM EDT Pt cannot take Paxlovid due to too many interactions with her medications. We can use molnupiravir.She should call if this medication is too costly as these antivirals are no longer covered by the govt. * Telephone Encounter - Andrey Yamile, LPN - 10/27/2023 11:19 AM EDT Patient [...] EDT Office Visit Family Practice [address], [place] [address] [place] [address] Ferny Sr, 293 [place] [address] 12/26/2023 11:00 AM EDT Office Visit Cardiology, [place] [facility] [address] [place] [address] [facility] Cardiology [facility] [address] [place] [address] 02/24/2024 11:00 AM EDT Laboratory Laboratory [facility] [address] [place] [phone] Naomi, Lab [facility] [address] [place] [address] 02/24/2024 12:00 PM EDT Office Visit Hematology/Oncolog y [facility] [address] [place] [phone] Michelle Ruffin CRNP [address] [place], [place] [address] [address] 03/02/2024 2:30 PM EDT Hospital Encounter [facility]O [facility], Endoscopy Room [facility] [address] [place] [address] Landon Kline MD [address] [place] [address] 03/02/2024 2:30 PM EDT - 03/02/2024 3:00 PM EDT Surgery ENDO [facility], Endoscopy Room [facility] [address] [place] [phone] Landon Kline MD [address] [place] [address] COLONOSCOPY FLEXIBLE PROXIMAL DIAGNOSTIC 04/02/2024 10:30 AM EDT Office Visit Sleep Disorders Ctr Jimi [facility] [address] [place] [phone] Mara Archibald CRNP [address] [place] [address] 05/11/2024 11:15 AM EST Office Visit Dermatology [employer] 200 [place] [address] Kingston Huertas MD 200 [facility] [place] [address] Scheduled Procedures Name Priority Associated Diagnoses Date/Ti [...] Screening 07/29/2024 07/29/2023 CKD HGB USE SMARTSET 24378 09/15/202409/15, 09/16/2023, 08/26/2023, Additional history exists CKD PHOS USE SMARTSET 15202 09/15/202409/04, 08/26/2023, 11/21/2022, Additional history exists O2 [...] D LEVEL ONCE IN A LIFETIME-USE SMARTSET# 21078 Completed 08/26/2023, 07/15/2022, 03/13/2022, Additional history exists [...] encounter Medical Devices Implanted Type Area Supervisor Pairing And Inspecting Device Identifier Shelf Expiration Date Model / Serial / Lot Lens Intraoc 18.5 - [id number] - [id number] Implanted:Qty: 1 on 04/03/2021 by Irvin Canchola MD at OR [facility] Left: Eye [employer]OMB 01/03/2026 [id number] / [id number] / [id number] Lens Intraoc 18.5 - [id number] - [id number] Implanted:Qty: 1 on 04/10/2021 by Irvin Canchola MD at OR [facility] Right: Eye [employer]CH [employer] LOMB 01/03/2026 [id number] / [id number] / [id number] documented as of this encounter Care Teams Dance Teacher Relationship Specialty Start Date End Date Ferny Sr DO [address] [place] [address] PCP - General Internal Medicine 08/31/18 documented as of this encounter
--- OUTSIDE RECORDS SUMMARY | 2024-01-20 22:01 | External Medical Summary | Summary of Care ---
Author Name Unknown Organization [facility] Address [address] [place] [address] Phone [phone] Care Team Providers Care Financial Services Associate Name Role Phone Ferny Sr DO Primary Care Provider [phone] Reason for Visit * Reason Onset Date Comments Advice 10/27/202310/26 Encounter Details Date Type Department Care Team (Late st Contact Info) Description 10/27/2023 Telephone Family Practice 65 [facility] [place] [address] [place] [address] Ferny Sr DO [address] [place] [address] Advice (10/26) Allergies Active Allergy [...] 0 Active Additional Information Patient taking differently:2 [place] [...] mouth daily. 0 Active GNP Calcium 1200 6828-8834 MG-UNIT Oral Tablet Chewable Take 1 Tablet [...] ype 2 diabetes, HbA1C goal < 8% ([facility]) TEST 3 X DAILY DX E11.9 100 Strip 5 2 Active ProAir HFA 108 (90 Base) MCG/ACT Inhalation Aerosol SolutionIndications :Acute cough,COPD, group A, by GOLD 2017 classification ([facility]) Inhale 2 Puffs by mouth in [...] morning. 100 Tablet 3 4 Active Pen [place] 32G X 4 MMIndications:Type 2 diabetes mellitus [...] less than 70,PAD (peripheral artery disease) ([facility]) Take 1 Tablet by mouth in the morning. 100 Tablet 3 4 Active Lisinopril 40 MG Oral TabletIndications:H TN, goal below 130/80 Take 1 Tablet by mouth in the morning. 100 Tablet 3 4 Active Insulin Glargine Solostar 100 UNIT/ML Subcutaneous Solution Pen-injectorIndicat ions:Type 2 diabetes, HbA1C goal < 8% ([facility]),Type 2 DM with CKD stage 3 and hypertension ([facility]) Inject 30 Units under the skin [...] and oxygen 06/08 Overview: with 4 LPM [facility] Last Assessment & Plan: [...] Open-angle glaucoma 06/14/2021 10/16/19 22 Atherosclerosis of [place] co ronary artery without angina pectoris 03/26/2021 [...] mRNA, LNP-s, No Pre serve, 2-Dose Series ([employer]) 05/14/2021,09/21/2020,08/31/2020 COVID-19, LNP-s, No Preserve , Jose-sucrose, Ages 12+ ([employer]) 12/11/2021 COVID-19, MRNA-LNP, 23-24, P F, 30 MCG/0.3 mL, 12 YRS AND ABOVE, IM ([facility]) 04/29/2023 Covid-19, Mrna, Lnp-s, Pf, B ivalent, 30 Mcg, IM, 12 yrs and above ([employer]) 05/14/2022 Pneumococcal Conjugate Vacc, 13 Valent (Prevnar) [...] horrible. He asks you call him at [phone] * Addendum Note - Erma Fernandez DO [...] 10/27/2023 2:32 PM EDT [facility]. Pended med with confirmed [...] in Please call * Telephone Encounter - BalderasSashaCHINA - 10/27/2023 12:03 PM EDT Patient is [...] Thank you * Telephone Encounter - Monse uBtler OSA - 10/27/2023 11:04 AM EDT Just tested for covid Took home test and is positive Wonders what to do next Please advise documented in this encounter Plan of Treatment Upcoming Encounters Date Type Department Care Team (Late st Contact Info) Description 12/03/2023 10:40 AM EDT Office Visit Family Practice [address], [place] 293 [facility] [place] [address] [facility]y [facility] [address] [facility] [address] 12/26/2023 11:00 AM EDT Office Visit Cardiology, [place] [facility] [address] [place] [address] [facility] Cardiology [facility] [address] [place] [address] 02/24/2024 11:00 AM EDT Laboratory Laboratory [facility] [address] [place] [phone] [place] [address] [facility] [place] [address] 02/24/2024 12:00 PM EDT Office Visit Hematology/Oncolog y [facility] [place] [address] [place] [address] Michelle Ruffin CRNP [address] [place], [place] [address] [address] 03/02/2024 2:30 PM EDT Hospital Encounter [facility]O [facility], Endoscopy Room [facility] [address] [place] [phone] Landon Kline MD [address] [place] [address] 03/02/2024 2:30 PM EDT - 03/02/2024 3:00 PM EDT Surgery [facility], Endoscopy Room [facility] [address] [place] [phone] Landon Kline MD [address] [place] [address] COLONOSCOPY FLEXIBLE PROXIMAL DIAGNOSTIC 04/02/2024 10:30 AM EDT Office Visit Sleep Disorders Ctr Jimi [facility] [address] [place] [phone] Mara Archibald, CHE [address] [place] [address] 05/11/2024 11:15 AM EST Office Visit Dermatology [employer] 200 [facility] [place] [address] Kingston Huertas MD 200 [facility] [place] [address] Scheduled Procedures Name Priority Associated Diagnoses Date/Ti [...] Screening 07/29/2024 07/29/2023 CKD HGB USE SMARTSET 75534 09/15/202409/15, 09/16/2023, 08/26/2023, Additional history exists CKD PHOS USE SMARTSET 07923 09/15/202409/04, 08/26/2023, 11/21/2022, Additional history exists O2 [...] D LEVEL ONCE IN A LIFETIME-USE SMARTSET# 34749 Completed 08/26/2023, 07/15/2022, 03/13/2022, Additional history exists [...] this encounter Medical Devices Implanted Type Area Manager Cardiovascular Device Identifier Shelf Expiration Date Model / Serial / Lot Lens Intraoc 18.5 - [id number] - [id number] Implanted:Qty: 1 on 04/03/2021 by Irvin Canchola MD at OR [facility] Left: Eye [employer]OMB 01/03/2026 [id number] / [id number] / [id number] Lens Intraoc 18.5 - [id number] - [id number] Implanted:Qty: 1 on 04/10/2021 by Irvin Canchola MD at OR [facility] Right: Eye [employer]USCH [employer] LOMB 01/03/2026 [id number] / [id number] / [id number] documented as of this encounter Care Teams Financial Services Associate Relationship Specialty Start Date End Date Ferny Sr DO [address] [facility] [place] [address] PCP - General Internal Medicine 08/31/18 documented as of this encounter
--- OUTSIDE RECORDS SUMMARY | 2024-01-20 22:01 | External Medical Summary | Summary of Care ---
Author Name Unknown Organization [facility] Address [address] [place] [address] Phone [phone] Care Team Providers Care Scrum Project Manager Name Role Phone Ferny Sr DO Primary Care Provider [phone] Reason for Visit * Reason Onset Date Comments Advice 10/27/202310/26 Encounter Details Date Type Department Care Team (Late st Contact Info) Description 10/27/2023 Telephone Family Practice 65 [facility], [place] [address] [place] [address] Ferny Sr DO 293 [place] [address] Advice (10/26) Allergies Active [...] 20 Active Additional Information Patient taking differently:2 [place] Each NostrilHS, Indications: allergies, Reported on 08/13/2022 [...] mouth daily. 0 Active GNP Calcium 1200 0292-5573 MG-UNIT Oral Tablet Chewable Take 1 Tablet [...] Type 2 diabetes, HbA1C goal < 8% ([facility]) TEST 3 X DAILY DX E11.9 100 Strip 5 06/11/20 22 Active ProAir HFA 108 (90 Base) MCG/ACT Inhalation Aerosol SolutionIndication s:Acute cough,COPD, group A, by GOLD 2017 classification ([facility]) Inhale 2 Puffs by mouth in [...] 100 Tablet 3 08/04/19 24 Active Pen [place] 32G X 4 MMIndications:Type 2 diabetes mellitus [...] LDL less than 70,PAD (peripheral artery disease) ([facility]) Take 1 Tablet by mouth in the morning. 100 Tablet 3 09/11/19 24 Active Lisinopril 40 MG Oral TabletIndications: HTN, goal below 130/80 Take 1 Tablet by mouth in the morning. 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 He asks you call him at [phone] * Addendum Note - Erma Fernandez DO [...] [facility] has medication. Pended med with confirmed pharmacy. [...] 10:40 AM EDT Office Visit Family Practice [address] [place] [address], [place] 293 [facility] [place] [address] Ferny Sr, 293 [place] [address] 12/26/2023 11:00 AM EDT [facility] [address] [facility] Cardiology [facility] 132 [facility] [place] [address] 02/24/2024 11:00 AM EDT Laboratory Laboratory Yvette [place] [address] [place] [phone] Trish Salgado [address] [facility] [place] [address] 02/24/2024 12:00 PM EDT Office Visit Hematology/Oncolog y Yvette Salgado [place] [address] [place] [phone] Michelle Ruffin CRNP [address] [place] [address] 03/02/2024 2:30 PM EDT Hospital Encounter ENDO [facility], Endoscopy Room [facility] [address] [place] [phone] Landon Kline MD [address] [place] [address] 03/02/2024 2:30 PM EDT - 03/02/2024 3:00 PM EDT Surgery ENDO [facility], Endoscopy Room [facility] [address] [place] [phone] Landon Kline MD [address] [place] [address] COLONOSCOPY FLEXIBLE PROXIMAL DIAGNOSTIC 04/02/2024 10:30 AM EDT [facility] [address] [place] [phone] Mara Archibald CRNP [address] [place] [address] 05/11/2024 11:15 AM EST Office Visit Dermatology Yvette Salgado [place] 200 [facility] [place], [place] [address] Kingston Huertas MD 200 [facility] [place] [address] Scheduled Procedures Name Priority Associated Diagnoses Date/Ti [...] Screening 07/29/2024 07/29/2023 CKD HGB USE SMARTSET 33562 09/15/202409/15, 09/16/2023, 08/26/2023, Additional history exists CKD PHOS USE SMARTSET 95340 09/15/202409/04, 08/26/2023, 11/21/2022, Additional history exists O2 [...] D LEVEL ONCE IN A LIFETIME-USE SMARTSET# 92159 Completed 08/26/2023, 07/15/2022, 03/13/2022, Additional history exists [...] encounter Medical Devices Implanted Type Area Insurance Sales Executive Device Identifier Shelf Expiration Date Model / Serial / Lot Lens Intraoc 18.5 - [id number] - [id number] Implanted:Qty: 1 on 04/03/2021 by Irvin Canchola MD at OR [facility] Left: Eye BAUSCH & LOMB 01/03/2026 [id number] / [id number] Lens Intraoc 18.5 - [id number] - [id number] Implanted:Qty: 1 on 04/10/2021 by Irvin Canchola MD at OR [facility] Right: Eye BAUSCH & LOMB 01/03/2026 [id number] / [id number] / [id number] documented as of this encounter Care Teams Scrum Project Manager Relationship Specialty Start Date End Date Ferny Sr DO 293 [place] [address] PCP - General Internal Medicine 08/31/18 documented as of this encounter
--- OUTSIDE RECORDS SUMMARY | 2024-01-20 22:01 | External Medical Summary | Summary of Care ---
Author Name Unknown Organization [facility] Address [address] [place] [address] Phone [phone] Care Team Providers Care Java Grails Developer Name Role Phone Ferny Sr DO Primary Care Provider [phone] Reason for Visit * Reason Onset Date Comments Advice 10/27/202310/26 Encounter Details Date Type Department Care Team (Late st Contact Info) Description 10/27/2023 Telephone Family Practice 65 [facility] [place] 293 [place] [address] Ferny Sr DO 293 [place] [address] Advice (10/26) Allergies Active Allergy [...] 20 Active Additional Information Patient taking differently:2 [place] Each NostrilHS, Indications: allergies, Reported on 08/13/2022 [...] mouth daily. 0 Active GNP Calcium 1200 1407-2520 MG-UNIT Oral Tablet Chewable Take 1 Tablet [...] Type 2 diabetes, HbA1C goal < 8% ([facility] [...] 100 Tablet 3 08/04/19 24 Active Pen [place] 32G X 4 MMIndications:Type 2 diabetes mellitus [...] LDL less than 70,PAD (peripheral artery disease) ([facility]) Take 1 Tablet by mouth in the morning. 100 Tablet 3 09/11/19 24 Active Lisinopril 40 MG Oral TabletIndications: HTN, goal below 130/80 Take 1 Tablet by mouth in the morning. 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 Type 2 [...] 07/15/2022 Open-angle glaucoma 06/14/2021 10/16/19 Atherosclerosis of [place] co ronary artery without angina pectoris 03/26/2021 [...] mRNA, LNP-s, No Pre serve, 2-Dose Series ([employer]) 05/14/2021,09/21/2020,08/31/2020 COVID-19, LNP-s, No Preserve , Jose-sucrose, Ages 12+ (Pfizer) 12/11/2021 COVID-19, MRNA-LNP, 23-24, P F, 30 MCG/0.3 mL, 12 YRS AND ABOVE, IM ([facility]) 04/29/2023 Covid-19, Mrna, Lnp-s, Pf, B ivalent, [...] encounter Miscellaneous Notes * Telephone Encounter - Erma Fernandez DO - 10/28/2023 10:43 AM EDT Unfortunately, we have no options for treatment given the cost. Agree with recommendations given regarding supportive care. ED if oxygen saturation drops below 90. * Addendum Note - Elizabeth Topete [facility] - 10/28/2023 10:43 AM EDT Addended by: [...] horrible. He asks you call him at [phone] * Addendum Note - Erma Fernandez DO [...] 10/27/2023 2:32 PM EDT [facility]. Pended med with confirmed pharmacy. [...] AM EDT Office Visit Family Practice 65 [facility] [place] 293 [facility] [address] Ferny Sr DO 293 [facility] [address] 12/26/2023 11:00 AM EDT [facility] 132 [facility] [place] [address] [facility] Cardiology [facility] [place] [address] 02/24/2024 11:00 AM EDT Laboratory Laboratory [facility] 200 [facility] [phone] Trish Salgado [facility] 200 [facility] [place], [place] [address] 02/24/2024 12:00 PM EDT Office Visit Hematology/Oncolog y [facility] [place] [address] [place] [phone] Michelle Ruffin CRNP 400 [facility] [place] [address] 03/02/2024 2:30 PM EDT Hospital Encounter ENDO [facility], Endoscopy Room [facility] [address] [place] [phone] Landon Kline MD [address] [place] [address] 03/02/2024 2:30 PM EDT - 03/02/2024 3:00 PM EDT Surgery ENDO [facility], Endoscopy Room [facility] [address] [place] [phone] Landon Kline MD [address] [place] [address] COLONOSCOPY FLEXIBLE PROXIMAL DIAGNOSTIC 04/02/2024 10:30 AM EDT Office Visit Sleep Disorders Ctr Jimi [place], [place] [address] [place] [phone] Mara Archibald CRNP [address] [place] [address] 05/11/2024 11:15 AM EST Office Visit Dermatology [facility] [place] [address] [place] [address] Kingston Huertas MD [address] [place] [address] Scheduled Procedures Name Priority Associated Diagnoses Date/Ti [...] Screening 07/29/2024 07/29/2023 CKD HGB USE SMARTSET 28782 09/15/202409/15, 09/16/2023, 08/26/2023, Additional history exists CKD PHOS USE SMARTSET 35413 09/15/202409/04, 08/26/2023, 11/21/2022, Additional history exists O2 ASSESSMENT COMPLETED IN PAST YEAR FOR COPD 09/15/2024 09/16/2023 DXA Scan 08/18/2025 08/18/2023, 0203/2022, 10/19/2012, Additional history exists DTaP,Tdap,and Td Vaccines [...] D LEVEL ONCE IN A LIFETIME-USE SMARTSET# 88158 Completed 08/26/2023, 07/15/2022, 03/13/2022, Additional history exists [...] this encounter Medical Devices Implanted Type Area Solar Energy System Installer Helper Device Identifier Shelf Expiration Date Model / Serial / Lot Lens Intraoc 18.5 - [id number] - [id number] Implanted:Qty: 1 on 04/03/2021 by Irvin Canchola MD at OR [facility] Left: Eye BAUSCH & LOMB 01/03/2026 [id number] / [id number] / [id number] Lens Intraoc 18.5 - [id number] - [id number] Implanted:Qty: 1 on 04/10/2021 by Irvin Canchola MD at OR [facility] Right: Eye BAUSCH & LOMB 01/03/2026 [id number] / [id number] / [id number] documented as of this encounter Care Teams Java Grails Developer Relationship Specialty Start Date End Date Freny Sr DO [address] [place] [address] PCP - General Internal Medicine 08/31/18 documented as of this encounter
--- OUTSIDE RECORDS SUMMARY | 2024-01-20 22:01 | External Medical Summary | Summary of Care ---
Author Name Unknown Organization [facility] Address [address] [place] [address] Phone [phone] Care Team Providers Care Baker Pie Name Role Phone Ferny Sr DO Primary Care Provider [phone] Reason for Visit * Reason Onset Date Comments Advice 10/27/202310/26 Encounter Details Date Type Department Care Team (Late st Contact Info) Description 10/27/2023 Telephone Family Practice 65 [facility] [place] 293 [place] [address] Ferny Sr DO 293 [place] [address] Advice (10/26) Allergies Active Allergy [...] 20 Active Additional Information Patient taking differently:2 [place] Each NostrilHS, Indications: allergies, Reported on 08/13/2022 [...] mouth daily. 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) 04/29/2023 Covid-19, Mrna, Lnp-s, Pf, B ivalent, [...] 90. * Addendum Note - [place] Topete [facility] - 10/28/2023 10:43 AM EDT Addended by: ELIZABETH TOPETE on: 10/28/2023 10:43 AM Modules accepted: Orders * Telephone Encounter - [place] Topete [facility] - 10/28/2023 10:31 AM EDT There are [...] horrible. He asks you call him at [phone] * Addendum Note - Erma Fernandez DO [...] 2:32 PM EDT [facility] has medication. Pended med with confirmed pharmacy. [...] antivirals are no longer [facility] * Telephone Encounter - Sasha Balderas LPN [...] AM EDT Office Visit Family Practice 65 [facility] [place] 293 [facility] [phone] Ferny Sr DO 293 [facility] [address] 12/26/2023 11:00 AM EDT Office Visit Cardiology, [facility] 132 [facility] [place] [address] [facility] Cardiology Jimi [address] [place] [address] 02/24/2024 11:00 AM EDT Laboratory Laboratory [facility]omi [place] [address] [place] [phone] [place], [facility] [address] [place] [address] 02/24/2024 12:00 PM EDT Office Visit Hematology/Oncolog y [facility] [place] [address] [place] [phone] Michelle Ruffin CRNP [address] [place] [address] [place] [address] 03/02/2024 2:30 PM EDT Hospital Encounter ENDO [facility], Endoscopy Room [facility] [address] [place] [phone] Landon Kline MD [address] [place] [address] 03/02/2024 2:30 PM EDT - 03/02/2024 3:00 PM EDT Surgery ENDO [facility], Endoscopy Room [facility] [address] [place] [phone] Landon Kline MD [address] [place] [address] COLONOSCOPY FLEXIBLE PROXIMAL DIAGNOSTIC 04/02/2024 10:30 AM EDT Office Visit Sleep Disorders Ctr Jimi H[facility] [place] [address] [place] [phone] Mara Archibald CRNP [address] [place] [address] 05/11/2024 11:15 AM EST Office Visit Dermatology [facility] [address] [place], [place] [address] Kingston Huertas MD [address] [place] [address] Scheduled Procedures Name Priority Associated Diagnoses Date/Ti [...] Screening 07/29/2024 07/29/2023 CKD HGB USE SMARTSET 44588 09/15/202409/15, 09/16/2023, 08/26/2023, Additional history exists CKD PHOS USE SMARTSET 07145 09/15/202409/04, 08/26/2023, 11/21/2022, Additional history exists O2 [...] D LEVEL ONCE IN A LIFETIME-USE SMARTSET# 42319 Completed 08/26/2023, 07/15/2022, 03/13/2022, Additional history exists [...] this encounter Medical Devices Implanted Type Area Account Service Representative Device Identifier Shelf Expiration Date Model / Serial / Lot Lens Intraoc 18.5 - [id number] - [id number] Implanted:Qty: 1 on 04/03/2021 by Irvin Canchola MD at OR [facility] Left: Eye BAUSCH & LOMB 01/03/2026 [id number] / [id number] / [id number] Lens Intraoc 18.5 - [id number] - [id number] Implanted:Qty: 1 on 04/10/2021 by Irvin Canchola MD at OR [facility] Right: Eye BAUSCH & LOMB 01/03/2026 [id number] / [id number] / [id number] documented as of this encounter Care Teams Baker Pie Relationship Specialty Start Date End Date Ferny Sr DO 293 [place] [address] PCP - General Internal Medicine 08/31/18 documented as of this encounter
--- OUTSIDE RECORDS SUMMARY | 2024-01-20 22:01 | External Medical Summary | Summary of Care ---
Author Name Unknown Organization [facility] Address [address] [place] [address] Phone [phone] Care Team Providers Care Bag Shop Worker Name Role Phone Ferny Sr DO Primary Care Provider [phone] Reason for Visit * Reason Onset Date Comments Advice 10/27/202310/26 Encounter Details Date Type Department Care Team (Late st Contact Info) Description 10/27/2023 Telephone Family Practice 65 [facility] [place] 293 [place] [address] Ferny Sr DO 293 [place] [address] Advice (10/26) Allergies Active Allergy [...] 0 Active Additional Information Patient taking differently:2 [place] Each NostrilHS, Indications: allergies, Reported on 08/13/2022 [...] mouth daily. 0 Active GNP Calcium 1200 2928-6472 MG-UNIT Oral Tablet Chewable Take 1 Tablet [...] morning. 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 He asks you call him at [phone] * Addendum Note - Erma Fernandez DO [...] 2:32 PM EDT [facility] medication. Pended med with confirmed pharmacy. [...] AM EDT Office Visit Family Practice 65 [facility] [place] 293 [place] [address] Ferny Sr DO 293 [facility] [address] 12/26/2023 11:00 AM EDT Office Visit Cardiology, [facility] 132 [facility] [place] [address] Jaiden [facility] Cardiology [facility] 132 [facility] [place] [address] 02/24/2024 11:00 AM EDT Laboratory Laboratory [facility] Naomi [place] [address] [place] [phone] Naomi, [facility] [address] [place] [address] 02/24/2024 12:00 PM EDT Office Visit Hematology/Oncolog y [facility] Naomi [place] [address] [place] [phone] Michelle Ruffin CRNP 400 [facility] [place] [address] 03/02/2024 2:30 PM EDT Hospital Encounter ENDO [facility], Endoscopy Room [facility] [address] [place] [phone] Landon Kline MD [address] [place] [address] 03/02/2024 2:30 PM EDT - 03/02/2024 3:00 PM EDT Surgery ENDO [facility], Endoscopy Room [facility] [address] [place] [phone] Landon Kline MD [address] [place] [address] COLONOSCOPY FLEXIBLE PROXIMAL DIAGNOSTIC 04/02/2024 10:30 AM EDT Office Visit Sleep Disorders Ctr [facility] [place] [address] [place] [phone] Mara Archibald CRNP [address] [place] [address] 05/11/2024 11:15 AM EST [facility] [address] [place] [address] Kingston Huertas MD [address] [place] [address] Scheduled Procedures Name Priority Associated Diagnoses Date/Ti [...] Screening 07/29/2024 07/29/2023 CKD HGB USE SMARTSET 07866 09/15/202409/15, 09/16/2023, 08/26/2023, Additional history exists CKD PHOS USE SMARTSET 02194 09/15/202409/04, 08/26/2023, 11/21/2022, Additional history exists O2 [...] D LEVEL ONCE IN A LIFETIME-USE SMARTSET# 17827 Completed 08/26/2023, 07/15/2022, 03/13/2022, Additional history exists [...] this encounter Medical Devices Implanted Type Area Pantry Cook Device Identifier Shelf Expiration Date Model / Serial / Lot Lens Intraoc 18.5 - [id number] - [id number] Implanted:Qty: 1 on 04/03/2021 by Irvin Canchola MD at OR [facility] Left: Eye BAUSCH & LOMB 01/03/2026 [id number] / [id number] / [id number] Lens Intraoc 18.5 - [id number] - [id number] Implanted:Qty: 1 on 04/10/2021 by Irvin Canchola MD at OR [facility] Right: Eye [employer]CH & LOMB 01/03/2026 [id number] / [id number] / [id number] documented as of this encounter Care Teams Bag Shop Worker Relationship Specialty Start Date End Date Ferny Sr DO 293 [place] [address] PCP - General Internal Medicine 08/31/18 documented as of this encounter
--- OUTSIDE RECORDS SUMMARY | 2024-01-20 22:01 | External Medical Summary | Summary of Care ---
Author Name Unknown Organization [facility] Address [address] [place] [address] Phone [phone] Care Team Providers Care Director Of Epidemiology Name Role Phone Ferny Sr DO Primary Care Provider [phone] Reason for Visit * Reason Onset Date Comments Advice 10/27/202310/26 Encounter Details Date Type Department Care Team (Late st Contact Info) Description 10/27/2023 Telephone Family Practice 65 [facility], [place] [address] [place] [address] Ferny Sr DO [address] [place] [address] Advice (10/26) Allergies Active Allergy Reactions Criticality Noted Date Comments Clarithromycin Other (Please comment) Low 1 "Burning mouth" sensation. documented as of this encounter (statuses as of 10/27/2023) Medications Medication Sig Dispensed Refills Start Date [...] 0 Active Additional Information Patient taking differently:2 [place] Each NostrilHS, Indications: allergies, Reported on 08/13/2022 [...] mouth daily. 0 Active GNP Calcium 1200 8694-5301 MG-UNIT Oral Tablet Chewable Take 1 Tablet [...] < 8% ([facility]) TEST 3 X DAILY DX E11.9 100 Strip 5 2 Active ProAir HFA 108 (90 Base) MCG/ACT Inhalation Aerosol SolutionIndications :Acute cough,COPD, group A, by GOLD 2017 classification ([facility]) Inhale 2 Puffs by mouth in [...] morning. 100 Tablet 3 4 Active Pen [place] 32G X 4 MMIndications:Type 2 diabetes mellitus [...] artery disease) ([facility]) Take 1 Tablet by mouth in the morning. 100 Tablet 3 4 Active Lisinopril 40 MG Oral TabletIndications:H TN, goal below 130/80 Take 1 Tablet by mouth in the morning. 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 Type 2 [...] as of this encounter (statuses as of 10/27/2023) Resolved Problems Problem Noted Date Diagnosed Date Resolved Date Diabetes mellitus with stage 3 chronic kidney disease 07/15/2022 07/15/2022 Diabetes mellitus 07/15/2022 09/10/2022 Hypertensive heart disease without CHF 01/04/2022 07/15/2022 Open-angle glaucoma 06/14/2021 10/16/19 Atherosclerosis of [place] co ronary artery without angina pectoris 03/26/2021 [...] as of this encounter (statuses as of 10/27/2023) Immunizations Name Administration Dates Next Due COVID-19 mRNA, LNP-s, No Pre serve, 2-Dose Series ([employer]) 05/14/2021,09/21/2020,08/31/2020 COVID-19, LNP-s, No Preserve , Jose-sucrose, Ages 12+ ([employer]) 12/11/2021 COVID-19, MRNA-LNP, 23-24, P F, 30 MCG/0.3 mL, 12 YRS AND ABOVE, IM ([employer]) 04/29/2023 Covid-19, Mrna, Lnp-s, Pf, B ivalent, 30 Mcg, IM, 12 yrs and above ([employer]) 05/14/2022 Pneumococcal Conjugate Vacc, 13 Valent (Prevnar) [...] encounter Miscellaneous Notes * Addendum Note - Erma Fernandez DO [...] 10/27/2023 2:32 PM EDT [facility]irmed [facility]. Pended med with confirmed [...] EDT Office Visit Family Practice [address], [place] [address] [place] [address] Ferny Sr, 293 [place] [address] 12/26/2023 11:00 AM EDT [facility] [address] [place], [facility] Cardiology [facility] [place] [address] 02/24/2024 11:00 AM EDT Laboratory Laboratory [place] [address] [place] [phone] [address] [place] [address] 02/24/2024 12:00 PM EDT Office Visit Hematology/Oncolog y Yvette [place] [address] [place] [phone] Michelle Ruffin CRNP [address] [place] [address] 03/02/2024 2:30 PM EDT Hospital Encounter ENDO [facility], Endoscopy Room [facility] [address] [place], [place] [phone] Landon Kline MD [address] [place] [address] 03/02/2024 2:30 PM EDT - 03/02/2024 3:00 PM EDT Surgery ENDO [facility], Endoscopy Room [facility] [address] [place] [phone] Landon Kline MD [address] [place] [address] COLONOSCOPY FLEXIBLE PROXIMAL DIAGNOSTIC 04/02/2024 10:30 AM EDT Office Visit Sleep Disorders Ctr Jimi [place] [address] [place] [phone] Mara Archibald CRNP [address] [place] [address] 05/11/2024 11:15 AM EST Office Visit Dermatology Yvette [place] 200 [facility] [place] [address] Kingston Huertas MD 200 [facility] [place] [address] Scheduled Procedures Name Priority Associated Diagnoses Date/Ti [...] Screening 07/29/2024 07/29/2023 CKD HGB USE SMARTSET 31014 09/15/202409/15, 09/16/2023, 08/26/2023, Additional history exists CKD PHOS USE SMARTSET 83164 09/15/202409/04, 08/26/2023, 11/21/2022, Additional history exists O2 [...] D LEVEL ONCE IN A LIFETIME-USE SMARTSET# 75570 Completed 08/26/2023, 07/15/2022, 03/13/2022, Additional history exists [...] this encounter Medical Devices Implanted Type Area Ceramics Technician Device Identifier Shelf Expiration Date Model / Serial / Lot Lens Intraoc 18.5 - [id number] - [id number] Implanted:Qty: 1 on 04/03/2021 by Irvin Canchola MD at OR [facility] Left: Eye [employer]USCH [employer] LOMB 01/03/2026 [id number] / [id number] / [id number] Lens Intraoc 18.5 - [id number] - [id number] Implanted:Qty: 1 on 04/10/2021 by Irvin Canchola MD at OR [facility] Right: Eye BAUSCH & LOMB 01/03/2026 [id number] / [id number] / [id number] documented as of this encounter Care Teams Director Of Epidemiology Relationship Specialty Start Date End Date Ferny Sr DO [address] [place] [address] PCP - General Internal Medicine 08/31/18 documented as of this encounter
--- OUTSIDE RECORDS SUMMARY | 2024-01-20 22:02 | External Medical Summary | Summary of Care ---
Author Name Unknown Organization [facility] Address [address] [place] [address] Phone [phone] Care Team Providers Care Glass Sander Belt Name Role Phone Ferny Sr DO Primary Care Provider [phone] Encounter Details Date Type Department Care Team (Late st Contact Info) Description 10/17/2023 Documentation [facility] Linsey Cho, Health Insulation Blanket Maker Allergies Active Allergy Reactions Criticality Noted Date Comments Clarithromycin Other (Please comment) Low 1 "Burning mouth" sensation. documented as of this encounter (statuses as of 10/17/2023) Medications Medication Sig Dispensed Refills Start Date [...] 01/11/2020 Active Additional Information Patient taking differently:2 [place] Each NostrilHS, Indications: allergies, Reported on 08/13/2022 [...] mouth daily. 0 Active GNP Calcium 1200 9008-7235 MG-UNIT Oral Tablet Chewable Take 1 Tablet [...] morning. 100 Tablet 3 08/04/2023 Active Pen [place] 32G X 4 MMIndications:Type 2 diabetes mellitus [...] once a week. 9 mL 08/25/2023 Active carBAMazepine ER 400 MG Oral Tablet Extended Release 12 Hour (Tegretol-Xr) Take 1 Tablet by mouth in the morning and 1 Tablet before bedtime. 200 Tablet 08/25/2023 Active Folic Acid 1 MG Oral [...] than 70,PAD (peripheral artery disease) ([facility]) Take 1 Tablet by mouth in the morning. 100 Tablet 3 09/11/2023 Active Lisinopril 40 MG Oral TabletIndications:HT N, goal below 130/80 Take 1 Tablet by mouth in the morning. 100 Tablet 3 09/11/2023 Active Insulin Glargine Solostar 100 UNIT/ML Subcutaneous Solution Pen-injectorIndicati ons:Type 2 diabetes, HbA1C goal < 8% ([facility]),Type 2 DM with CKD stage 3 and hypertension ([facility]) Inject 30 Units under the skin [...] Tablet by mouth at bedtime. 0 Active documented as of this encounter (statuses as of 10/17/2023) Active Problems Problem Noted Date Diagnosed Date Osteoporosis without current pathological fractu re 08/27/2023 [facility] current use of aromatase inhibitor Type 2 [...] and oxygen 06/08 Overview: with 4 LPM [facility] Last Assessment & Plan: Compliant with [employer] ADVANCE DIRECTIVE INFORMATION 12/07/2004 Overview: Yes, Patient instructed to provide copy of advance directive for provider to review and to be scanned into Electronic Medical Record Trigeminal neuralgia Mixed rhinitis Irritable bowel syndrome documented as of this encounter (statuses as of 10/17/2023) Resolved Problems Problem Noted Date Diagnosed Date Resolved Date Diabetes mellitus with stage 3 chronic kidney disease 07/15/2022 07/15/2022 Diabetes mellitus 07/15/2022 09/10/2022 Hypertensive heart disease without CHF 01/04/2022 07/15/2022 Open-angle glaucoma 06/14/2021 10/16/19 Atherosclerosis of [place] co ronary artery without angina pectoris 03/26/2021 [...] as of this encounter (statuses as of 10/17/2023) Immunizations Name Administration Dates Next Due COVID-19 mRNA, LNP-s, No Pre serve, 2-Dose Series ([employer]) 05/14/2021,09/21/2020,08/31/2020 COVID-19, LNP-s, No Preserve , Jose-sucrose, Ages 12+ ([employer]) 12/11/2021 COVID-19, MRNA-LNP, 23-24, P F, 30 [...] of this encounter Progress Notes * Linsey Coh Health Insulation Blanket Maker - 10/17/2023 12:51 PM EDT Did patient attend session 10 of 10 of the small group balance program? Yes: Patient attended session 10 of 10 of the small group balance program. During session 10, patients completed warm-up exercises and balance retest. Patients were provided Plan of Care recommendations and home exercise program. Scheduled 1-month follow-up phone call to review progress. documented in this encounter Plan of Treatment Upcoming Encounters Date Type Department Care Team (Late st Contact Info) Description 12/03/2023 10:40 AM EDT Office Visit Family Practice 65 [facility] [place] [address] [place] [address] Ferny Sr, [address] [place] [address] 12/26/2023 11:00 AM EDT Office Visit [facility] [address] [facility] Clinic Cardiology [facility] 132 [facility] [place] [address] 02/24/2024 11:00 AM EDT Laboratory Laboratory [facility] [address] [place] [phone] Naomi, Lab [address] [place] [address] 02/24/2024 12:00 PM EDT Office Visit Hematology/Oncolog y Yvette [place] 200 [facility] [place] [phone] Michelle Ruffin CRNP [address] [place] [address] 03/02/2024 2:30 PM EDT Hospital Encounter ENDO [facility], Endoscopy Room [facility] [address] [place] [address] Landon Kline MD [address] [place] [address] 03/02/2024 2:30 PM EDT - 03/02/2024 3:00 PM EDT Surgery ENDO [facility], Endoscopy Room [facility] [address] [place] [phone] Landon Kline MD [address] [place] [address] COLONOSCOPY FLEXIBLE PROXIMAL DIAGNOSTIC 04/02/2024 10:30 AM EDT Office Visit Sleep Disorders Ctr Jimi [place] [address] [place] [phone] Mara Archibald CRNP [address] [place] [address] 05/11/2024 11:15 AM EST Office Visit Dermatology Yvette [place]gado [place] [address] [place] [address] Kingston Huertas MD 200 [facility] [place] [address] Scheduled Procedures Name Priority Associated Diagnoses Date/Ti [...] Screening 07/29/2024 07/29/2023 CKD HGB USE SMARTSET 34370 09/15/202409/15, 09/16/2023, 08/26/2023, Additional history exists CKD PHOS USE SMARTSET 22204 09/15/202409/04, 08/26/2023, 11/21/2022, Additional history exists O2 ASSESSMENT COMPLETED IN PAST YEAR FOR COPD 09/15/2024 09/16/2023 DXA Scan 08/18/2025 08/18/2023, 03/2022, 10/19/2012, Additional history exists DTaP,Tdap,and Td Vaccines (3 - Td or Tdap) 09/17/2027 09/16/2017, 04/06/2008, 11/06/1995 Pneumococcal Vaccine: 65+ Years Completed 10/14/2014, 04/02/2011, 12/21/2002 Zoster Vaccines Completed 09/15/2019, 1110/2018, 06/14/2009 LUNG CANCER SCREENING - USE SMARTSET 10871 Completed 05/16/2021, 02/17/2020, 02/11/2019, Additional history exists COLONOSCOPY-EVERY 5 YRS AGES 18-100 Discontinued 09/04/2022, 02/13/2015, 08/19/2011, Additional history exists Influenza Vaccine (FLU shot) Completed 03/18/2023, 03/13/2022, 03/26/2021, Additional history exists COVID-19 Vaccine Completed 04/29/2023, 02/2022, 12/11/2021, Additional history exists VITAMIN D LEVEL ONCE IN A LIFETIME-USE SMARTSET# 58049 Completed 08/26/2023, 07/15/2022, 03/13/2022, Additional history exists [...] this encounter Medical Devices Implanted Type Area [employer] Umpire Device Identifier Shelf Expiration Date Model / Serial / Lot Lens Intraoc 18.5 - [id number] - [id number] Implanted:Qty: 1 on 04/03/2021 by Irvin Canchola MD at OR [facility] Left: Eye BAUSCH & LOMB 01/03/2026 [id number] / [id number] / [id number] Lens Intraoc 18.5 - [id number] - [id number] Implanted:Qty: 1 on 04/10/2021 by Irvin Canchola MD at OR [facility] Right: Eye BAUSCH & LOMB 01/03/2026 [id number] / [id number] / [id number] documented as of this encounter Care Teams Glass Sander Belt Relationship Specialty Start Date End Date Ferny Sr DO [address] [place] [address] PCP - General Internal Medicine 08/31/18 documented as of this encounter
--- OUTSIDE RECORDS SUMMARY | 2024-01-20 22:02 | External Medical Summary | Summary of Care ---
Author Name Unknown Organization [facility] Address [address] [place] [address] Phone [phone] Care Team Providers Care Exercise Physiologist Certified Name Role Phone Ferny Sr DO Primary Care Provider [phone] Reason for Visit * Reason Onset Date Comments Advice 10/27/202310/26 Encounter Details Date Type Department Care Team (Late st Contact Info) Description 10/27/2023 Telephone Family Practice 65 [facility], [place] [address] [place] [address] Ferny Sr DO [address] [place] [address] Advice (10/26) Allergies Active Allergy Reactions Criticality Noted Date Comments Clarithromycin Other (Please comment) Low 06/07/200 1 "Burning mouth" sensation. documented as of this encounter (statuses as of 10/27/2023) Medications Medication Sig Dispensed Refills Start Date End Date Status BlueView TechnologiesTOUCH ULTRA SYSTEM W/DEVICE KITIndications:DM type 2, [...] 01/11/2020 Active Additional Information Patient taking differently:2 [place] Each NostrilHS, Indications: allergies, Reported on 08/13/2022 [...] mouth daily. 0 Active GNP Calcium 1200 3453-9636 MG-UNIT Oral Tablet Chewable Take 1 Tablet [...] pe 2 diabetes, HbA1C goal < 8% ([facility]) TEST 3 X DAILY DX E11.9 100 Strip 5 06/11/2022 Active ProAir HFA 108 (90 Base) MCG/ACT Inhalation Aerosol SolutionIndications: Acute cough,COPD, group A, by GOLD 2017 classification ([facility]) Inhale 2 Puffs by mouth [...] morning. 100 Tablet 3 08/04/2023 Active Pen [place] 32G X 4 MMIndications:Type 2 diabetes mellitus with peripheral neuropathy ([facility]) Use as directed. Once daily 100 Each [...] LDL less than 70,PAD (peripheral artery disease) ([facility]) Take 1 Tablet by mouth in the morning. 100 Tablet 3 09/11/2023 Active Lisinopril 40 MG Oral TabletIndications:HT N, goal below 130/80 Take 1 Tablet by mouth in the morning. 100 Tablet 3 09/11/2023 Active Insulin Glargine Solostar 100 UNIT/ML Subcutaneous Solution Pen-injectorIndicati ons:Type 2 diabetes, HbA1C goal < 8% ([facility]),Type 2 DM with CKD stage 3 and hypertension ([facility]) Inject 30 Units under the [...] before bedtime. 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 angina pectoris 03/26/2021 [...] mRNA, LNP-s, No Pre serve, 2-Dose Series ([employer]) 05/14/2021,09/21/2020,08/31/2020 COVID-19, LNP-s, No Preserve , Jose-sucrose, Ages 12+ ([employer]) 12/11/2021 COVID-19, MRNA-LNP, 23-24, P F, 30 MCG/0.3 mL, 12 YRS AND ABOVE, IM ([employer]) 04/29/2023 Covid-19, Mrna, Lnp-s, Pf, B ivalent, [...] Thank you * Telephone Encounter - Erma Rose DO - 10/27/2023 11:57 AM EDT Pt [...] 10:40 AM EDT Office Visit Family Practice [address] [place] [address] [address] [place] [address] Ferny Sr DO 293 [facility] [place] [address] 12/26/2023 11:00 AM EDT Office Visit [facility] 132 [facility] [place] [address] [facility] Cardiology [place] 132 [facility] [place] [address] 02/24/2024 11:00 AM EDT Laboratory Laboratory [facility] [address] [place] [phone] Naomi, Lab Scenery [address] [place] [address] 02/24/2024 12:00 PM EDT Office Visit Hematology/Oncolog y Yvette Salgado [place] [address] [place] [phone] Michelle Ruffin CRNP [address] [place] [address] 03/02/2024 2:30 PM EDT Hospital Encounter ENDO [facility], Endoscopy Room [facility] [address] [place] [phone] Landon Kline MD [address] [place] [address] 03/02/2024 2:30 PM EDT - 03/02/2024 3:00 PM EDT Surgery ENDO [facility], Endoscopy Room [facility] [address] [place] [phone] Landon Kline MD [address] [place] [address] COLONOSCOPY FLEXIBLE PROXIMAL DIAGNOSTIC 04/02/2024 10:30 AM EDT Office Visit Sleep Disorders Ctr Jim[facility] [place] [address] [place] [phone] Mara Archibald CRNP [address] [place] [address] 05/11/2024 11:15 AM EST Office Visit Dermatology Yvette Salgado [place] [address] [place], [place] [address] Kingston Huertas MD 200 [facility] [place] [address] Scheduled Procedures Name Priority Associated Diagnoses Date/Ti [...] Screening 07/29/2024 07/29/2023 CKD HGB USE SMARTSET 56057 09/15/202409/15, 09/16/2023, 08/26/2023, Additional history exists CKD PHOS USE SMARTSET 19707 09/15/202409/04, 08/26/2023, 11/21/2022, Additional history exists O2 [...] D LEVEL ONCE IN A LIFETIME-USE SMARTSET# 64278 Completed 08/26/2023, 07/15/2022, 03/13/2022, Additional history exists [...] this encounter Medical Devices Implanted Type Area Human Resources Intern Device Identifier Shelf Expiration Date Model / Serial / Lot Lens Intraoc 18.5 - [id number] - [id number] Implanted:Qty: 1 on 04/03/2021 by Irvin Canchola MD at OR [facility] Left: Eye BAUSCH & LOMB 01/03/2026 [id number] / [id number] / [id number] Lens Intraoc 18.5 - [id number] - [id number] Implanted:Qty: 1 on 04/10/2021 by Irvin Canchola MD at OR [facility] Right: Eye BAUSCH & LOMB 01/03/2026 [id number] / [id number] / [id number] documented as of this encounter Care Teams Exercise Physiologist Certified Relationship Specialty Start Date End Date Ferny Sr DO [address] [place] [address] PCP - General Internal Medicine 08/31/18 documented as of this encounter
--- OUTSIDE RECORDS SUMMARY | 2024-01-20 22:02 | External Medical Summary | Summary of Care ---
Author Name Unknown Organization [facility] Address [address] [place] [address] Phone [phone] Care Team Providers Care Weather Stripper Name Role Phone Ferny Sr DO Primary Care Provider [phone] Reason for Visit * Reason Onset Date Comments Advice 10/27/202310/26 Encounter Details Date Type Department Care Team (Late st Contact Info) Description 10/27/2023 Telephone Family Practice [facility] [place] [address] [place] [address] Ferny Sr DO [address] [place] [address] Advice (10/26) Allergies Active Allergy Reactions Criticality Noted Date Comments Clarithromycin Other (Please comment) Low 06/07/200 1 "Burning mouth" sensation. documented as of this encounter (statuses as of 10/27/2023) Medications Medication Sig Dispensed Refills Start Date End Date Status Register My InfoTOUCH ULTRA SYSTEM W/DEVICE KITIndications:DM type 2, goal [...] 01/11/2020 Active Additional Information Patient taking differently:2 [place] Each NostrilHS, Indications: allergies, Reported on 08/13/2022 [...] mouth daily. 0 Active GNP Calcium 1200 7342-7780 MG-UNIT Oral Tablet Chewable Take 1 Tablet [...] pe 2 diabetes, HbA1C goal < 8% ([facility] [...] morning. 100 Tablet 3 08/04/2023 Active Pen Hiko 32G X 4 MMIndications:Type 2 diabetes mellitus with peripheral neuropathy ([facility]) Use as directed. 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) 04/29/2023 Covid-19, Mrna, Lnp-s, Pf, B ivalent, [...] Miscellaneous Notes * Telephone Encounter - Erma Rose DO - 10/27/2023 2:12 PM EDT Most [...] antivirals [facility] * Telephone Encounter - Sasha Balderas LPN [...] AM EDT Office Visit Family Practice [facility] [place] [address] [facility], [place] [address] [facility] [address] [facility] [address] 12/26/2023 11:00 AM EDT [facility] [address] [facility] [place] [address] [facility] Cardiology [facility] [address] [place] [address] 02/24/2024 11:00 AM EDT Laboratory Laboratory [facility] [place] [address] [place] [phone] [place] [address] [place] [address] 02/24/2024 12:00 PM EDT Office Visit Hematology/Oncolog y [facility] [place] [address] [place] [phone] Michelle Ruffin CRNP [address] [place] [address] [place] [address] 03/02/2024 2:30 PM EDT Hospital Encounter ENDO [facility], Endoscopy Room [facility] [address] [place] [phone] Landon Kline MD [address] [place] [address] 03/02/2024 2:30 PM EDT - 03/02/2024 3:00 PM EDT Surgery ENDO [facility], Endoscopy Room [facility] [address] [place] [phone] Landon Kline MD [address] [place] [address] COLONOSCOPY FLEXIBLE PROXIMAL DIAGNOSTIC 04/02/2024 10:30 AM EDT Office Visit [facility] [place] [address] [place] [phone] Mara Archibald CRNP [address] [place] [address] 05/11/2024 11:15 AM EST Office Visit Dermatology [facility] [place] [address] [place] [address] Kingston Huertas MD [address] [facility] [place], [place] [address] Scheduled Procedures Name Priority Associated Diagnoses Date/Ti [...] Screening 07/29/2024 07/29/2023 CKD HGB USE SMARTSET 60684 09/15/202409/15, 09/16/2023, 08/26/2023, Additional history exists CKD PHOS USE SMARTSET 51997 09/15/202409/04, 08/26/2023, 11/21/2022, Additional history exists O2 [...] D LEVEL ONCE IN A LIFETIME-USE SMARTSET# 07242 Completed 08/26/2023, 07/15/2022, 03/13/2022, Additional history exists [...] this encounter Medical Devices Implanted Type Area Footwear Stitcher Device Identifier Shelf Expiration Date Model / Serial / Lot Lens Intraoc 18.5 - [id number] - [id number] Implanted:Qty: 1 on 04/03/2021 by Irvin Canchola MD at OR [facility] Left: Eye [employer] 01/03/2026 [id number] / [id number] / [id number] Lens Intraoc 18.5 - [id number] - [id number] Implanted:Qty: 1 on 04/10/2021 by Irvin Canchola MD at OR [facility] Right: Eye [employer] 01/03/2026 [id number] / [id number] / [id number] documented as of this encounter Care Teams Weather Stripper Relationship Specialty Start Date End Date Ferny Sr DO [address] [place] [address] PCP - General Internal Medicine 08/31/18 documented as of this encounter
--- OUTSIDE RECORDS SUMMARY | 2024-01-20 22:02 | External Medical Summary | Summary of Care ---
Author Name Unknown Organization [facility] Address [address] [place] [address] Phone [phone] Care Team Providers Care Director Information Name Role Phone ElnoamFerny DO Primary Care Provider [phone] Encounter Details Date Type Department Care Team (Latest Contact Info) Description 10/14/2023 Medication Management [facility] [address] [place], [place] [id number] Betty Topete, [facility] [address] [place] [address] Referred for management of medication therapy* Allergies Active Allergy Reactions Criticality Noted Date Comments Clarithromycin Other (Please comment) Low 1 "Burning mouth" sensation. documented as of this encounter (statuses as of 10/15/2023) Medications Medication Sig Dispensed Refills Start Date [...] 0 Active Additional Information Patient taking differently:2 [place] Each NostrilHS, Indications: allergies, Reported on 08/13/2022 [...] mouth daily. 0 Active GNP Calcium 1200 2560-3903 MG-UNIT Oral Tablet Chewable Take 1 Tablet [...] morning. 100 Tablet 3 4 Active Pen Pacific 32G X 4 MMIndications:Type 2 diabetes mellitus [...] Tablet by mouth at bedtime. 0 Active Melatonin 5 MG Oral Capsule Take 1 Capsule by mouth at bedtime. 0 10/15/19 24 Discontinu ed(Medicat ion List Clean Up) documented as of this encounter (statuses as of 10/15/2023) Active Problems Problem Noted Date Diagnosed Date [...] as of this encounter (statuses as of 10/15/2023) Resolved Problems Problem Noted Date Diagnosed Date Resolved Date Diabetes mellitus with stage 3 chronic kidney disease 07/15/2022 07/15/2022 Diabetes mellitus 07/15/2022 09/10/2022 Hypertensive heart disease without CHF 01/04/2022 07/15/2022 Open-angle glaucoma 06/14/2021 10/16/19 Atherosclerosis of [place] ronary artery without angina pectoris 03/26/2021 [...] as of this encounter (statuses as of 10/15/2023) Immunizations Name Administration Dates Next Due COVID-19 mRNA, LNP-s, No Pre serve, 2-Dose Series ([employer]) 05/14/2021,09/21/2020,08/31/2020 COVID-19, LNP-s, No Preserve , Jose-sucrose, Ages 12+ (Pfizer) 12/11/2021 COVID-19, MRNA-LNP, 23-24, P F, 30 MCG/0.3 mL, 12 YRS AND ABOVE, IM ([facility]) 04/29/2023 Covid-19, Mrna, Lnp-s, [...] as of this encounter Progress Notes * Betty Topete, [facility] - 10/15/2023 9:39 AM EDT Rama Alvarez is a 77 year old female. Objective: Review of patient's allergies indicates: Allergen Reactions Clarithromycin Other (Please comment) "Burning mouth" sensation. Current Outpatient Medications - WARNING: List may be incomplete due to filtering Medication Sig Dispense Refill Amoxicillin 500 MG Oral Capsule (Amoxil) Take 4 Capsules by mouth once. One hour prior to appointment Melatonin 10 MG Oral Tablet Take 1 Tablet by mouth at bedtime. oxyCODONE-Acetaminophen 5-325 MG Oral Tablet (Percocet) Take 1 Tablet by mouth every 8 hours as needed for Pain, Severe. 90 Tablet 0 Insulin Glargine Solostar 100 UNIT/ML Subcutaneous Solution Pen-injector Inject 30 Units under the skin every evening. 30 mL 2 Ezetimibe 10 MG Oral Tablet (Zetia) Take 1 Tablet by mouth in the morning. 100 Tablet 3 Lisinopril 40 MG Oral Tablet Take 1 Tablet by mouth in the morning. 100 Tablet 3 Gabapentin 300 MG Oral Capsule (Neurontin) Take one capsule by mouth in the evening and two capsuleat bedtime 300 Capsule 3 Labetalol HCl 200 MG Oral Tablet (Normodyne) Take 1 Tablet by mouth in the morning and 1 Tablet before bedtime. 200 Tablet 3 Repatha SureClick 140 MG/ML Subcutaneous Solution Auto-injector (evolocumab) Inject 140 mg (1 pen) under the skin every 14 days. Remove from refrigerator 30 minutes prior to injection. 6 mL 3 carBAMazepine ER 400 MG Oral Tablet Extended Release 12 Hour (Tegretol-Xr) Take 1 Tablet by mouth in the morning and 1 Tablet before bedtime. 200 Tablet 3 Folic Acid 1 MG Oral Tablet Take 1 Tablet by mouth in the morning. 100 Tablet 3 Montelukast Sodium 10 MG Oral Tablet (Singulair) Take 1 Tablet by mouth every evening. 100 Tablet 3 Ozempic (1 MG/DOSE) 4 MG/3ML Subcutaneous Solution Pen-injector (Semaglutide (1 MG/DOSE)) Inject 1 mg under the skin once a week. 9 mL 3 DULoxetine HCl 60 MG Oral Capsule Delayed Release Particles (Cymbalta) Take 1 Capsule by mouth at bedtime. 100 Capsule 2 Potassium Chloride ER 10 MEQ Oral Tablet Extended Release Take 1 Tablet by mouth in the morning. 100 Tablet 2 amLODIPine Besylate 2.5 MG Oral Tablet (Norvasc) Take 1 Tablet by mouth in the morning. 100 Tablet 3 Empagliflozin 25 MG Oral Tablet (Jardiance) Take 1 Tablet by mouth in the morning. 100 Tablet 2 Letrozole 2.5 MG Oral Tablet (Femara) Take 1 Tablet by mouth in the morning. 100 Tablet 3 Furosemide 40 MG Oral Tablet (Lasix) take 1 tablet by mouth twice a day 180 Tablet 2 Atorvastatin Calcium 80 MG Oral Tablet (Lipitor) take 1 tablet by mouth once daily 90 Tablet 3 Docusate Sodium 100 MG Oral Capsule (Colace) Take 2 Capsules by mouth daily. Azelastine HCl 137 MCG/SPRAY Nasal Solution instill 2 sprays into each nostril twice a day (Patienttaking differently: 2 sprays once daily) 90 mL 0 Aspirin EC 81 MG Oral Tablet Delayed Release Take 1 Tablet by mouth in the morning. GNP Calcium 1200 1619-3974 MG-UNIT Oral Tablet Chewable Take 1 Tablet by mouth daily. Vitamin B12 1000 MCG Oral Tablet Extended Release Take 1,000 mcg by mouth daily. Vitamin D High Potency 25 MCG (1000 UT) Oral Capsule (Cholecalciferol) Take 1 Capsule by mouth daily. fexofenadine (JANNY ALLERGY) 180 MG Tablet Take 1 Tab by mouth daily. (Patient taking differently: Take 1 Tablet by mouth at bedtime.) fluticasone (FLONASE) 50 MCG/ACT nasal spray Administer 2 Sprays into each nostril 2 times a day. (Patient taking differently: Administer 2 Sprays into each nostril at bedtime.) 16 g 5 VITAMIN C 500 MG PO TABS Take 1 Tablet by mouth daily at noon. Pen Pacific 32G X 4 MM Use as directed. Once daily 100 Each 3 ProAir HFA 108 (90 Base) MCG/ACT Inhalation Aerosol Solution Inhale 2 Puffs by mouth in the morningand 2 Puffs at noon and 2 Puffs in the evening and 2 Puffs before bedtime. (Patient not taking: Reported on 08/13/2023) 8 g 0 OCS HomeCareTouch Ultra Blue In Vitro Strip (Glucose Blood) TEST 3 X DAILY DX E11.9 100 Strip 5 oxygen IN GAS 4 LPM bled through BIPAP during hours of sleep. 1 Each 0 BiPAP every night at bedtime. InspiratoUCH ULTRASOFT LANCETS MISC test once daily; dx 250.00 1 Box 5 InspiratoUCH ULTRA SYSTEM W/DEVICE KIT test once daily; dx 250.00 1 Kit 0 Immunization History Administered Date(s) Administered COVID-19 mRNA, LNP-s, No Preserve, 2-Dose Series ([employer]) 08/31/2020, 09/21/2020, 05/14/2021 COVID-19, LNP-s, No Preserve, Jose-sucrose, Ages 12+ (Pfizer) 12/11/2021 COVID-19, MRNA-LNP, 23-24, PF, 30 MCG/0.3 mL, 12 YRS AND ABOVE, IM (PFIZER- [facility]ir[facility]) 04/29/2023 Covid-19, Mrna, Lnp-s, Pf, Bivalent, 30 Mcg, IM, 12 yrs and above (Pfizer) 05/14/2022 Pneumococcal Conjugate Vacc, 13 Valent (Prevnar) 10/14/2014 Pneumococcal Polysaccharide PPV23 (Pneumovax) 12/21/2002, 04/02/2011 RSV Vac., Bivalent, Perfusion F, Pf,0.5 Ml (Abrysvo) 05/02/2023 Season Influenza, Quad, PF, Adjuvanted, 65+ Yrs, IM (FLUAD) 04/26/2020 Seasonal Influenza, PF, 6 M & above, IM , (FluLaval or Fluzone) 04/03/2017, 04/13/2018 Seasonal Influenza, Quadrivalent Hd (Fluzone Hd) 03/26/2021, 03/13/2022, 03/18/2023 Seasonal Influenza, Quadrivalent, No Preserve, IM 05/14/2016 Seasonal Influenza, Split, IIV3, With Preserve, Inj 04/20/2003, 04/17/2004, 04/23/2005, 04/17/2006,04/08/2007, 04/06/2008, 05/02/2009, 05/01/2010, 04/02/2011, 04/07/2012, 04/05/2013, 03/15/2014, 03/28/2015 Seasonal Influenza, Trivalent, Adjuvanted, 65+ yrs 04/16/2019 TD - Tetanus/Diptheria (ADULT) 11/06/1995, 09/16/2017 TDAP (age 11 and older)(Adacel) 04/06/2008 Varicella Zoster Vaccine (Adult) 06/14/2009 Zoster Vaccine Recombinant (Shingrix) 05/10/2019, 09/15/2019 TMR Interventions Incomplete Medication Therapy Recommendations No medication therapy recommendations to display Completed Medication Therapy Recommendations Referred for management of medication therapy Current Medication: Repatha SureClick 140 MG/ML Subcutaneous Solution Auto- injector (evolocumab) Rationale: Patient Education Recommendation: Provide Education Note: Demonstrated to patient how to use repatha injection and provided handout Current Medication: oxyCODONE-Acetaminophen 5-325 MG Oral Tablet (Percocet) Rationale: Patient Education Recommendation: Provide Education Note: Counseled patient on safe use of oxycodone - warning signs of opioid overdose, need for constipation prevention. Assessment & Plan Indication, effectiveness, safety and convenience of her medications were reviewed today. The patient's medical conditions were assessed, evaluated, and deemed meeting goals of drug therapy, with thefollowing exceptions. Additional Notes: Patient to journal for next week and bring into clinic to assess what might be causing worsening tremors Summary Time Spent: 16-30 min Supervising pharmacist who provided the service: Betty Cui, PharmD, BCACP Takeaway Information Who was the recipient of the CMR service: beneficiary Language Template for the Patient Takeaway: [place] I attest that I have reviewed and updated the patient's conditions, allergies, and medications to the best of my ability. Patient provided medication list gathered by: Betty Alston [facility] 10/15/2023, 9:39 AM documented in this encounter Miscellaneous Notes * MTM Personal Medication List - Betty Topete, [facility] - 10/15/2023 9:28 AM EDT Medication How I take it Why I use it Prescriber amLODIPine Besylate 2.5 MG Oral Tablet (Norvasc) Take 1 Tablet by mouth in the morning. High blood pressure CHE Morales Amoxicillin 500 MG Oral Capsule (Amoxil) Take 4 Capsules by mouth once. One hour prior to appointment Dental appointments Self Aspirin EC 81 MG Oral Tablet Delayed Release Take 1 Tablet by mouth in the morning. Heart protection Self Atorvastatin Calcium 80 MG Oral Tablet (Lipitor) Take 1 tablet by mouth once daily at noon Cholesterol and heart protection Ferny Sr DO Azelastine HCl 137 MCG/SPRAY Nasal Solution Instill 2 sprays into each nostril once to twice daily Allergies Anjel Faulkner MD carBAMazepine ER 400 MG Oral Tablet Extended Release 12 Hour (Tegretol-Xr) Take 1 Tablet by mouth in the morning and 1 Tablet before bedtime. Trigeminal neuralgia Ferny Sr DO Docusate Sodium 100 MG Oral Capsule (Colace) Take 1 Capsule by mouth twice daily in morning and at noon Constipation History Per Patient DULoxetine HCl 60 MG Oral Capsule Delayed Release Particles (Cymbalta) Take 1 Capsule by mouth at bedtime. Neuropathy/back pain Ferny Sr DO Empagliflozin 25 MG Oral Tablet (Jardiance) Take 1 Tablet by mouth in the morning. Diabetes and kidney protection Ferny Sr DO Ezetimibe 10 MG Oral Tablet (Zetia) Take 1 Tablet by mouth in the morning. Cholesterol Ferny Sr DO fexofenadine (JANNY ALLERGY) 180 MG Tablet Take 1 Tab by mouth daily at bedtime Allergies Anjel Faulkner MD fluticasone (FLONASE) 50 MCG/ACT nasal spray Administer 2 Sprays into each nostril at bedtime Allergies Anjel Faulkner MD Folic Acid 1 MG Oral Tablet Take 1 Tablet by mouth in the morning. General health Ferny Sr DO Furosemide 40 MG Oral Tablet (Lasix) take 1 tablet by mouth twice a day in the morning and at noon Fluid/swelling Ferny Sr DO Gabapentin 300 MG Oral Capsule (Neurontin) Take one capsule by mouth in the evening and two capsuleat bedtime Neuropathy Ferny Sr DO GNP Calcium 1200 7614-8019 MG-UNIT Oral Tablet Chewable Take 1 Tablet by mouth daily in evening Bones Self Insulin Glargine Solostar 100 UNIT/ML Subcutaneous Solution Pen-injector Inject 30 Units under the skin every evening. Diabetes Ferny Sr DO Labetalol HCl 200 MG Oral Tablet (Normodyne) Take 1 Tablet by mouth in the morning and 1 Tablet before bedtime. Blood pressure Ferny Sr DO Letrozole 2.5 MG Oral Tablet (Femara) Take 1 Tablet by mouth in the morning. Breast cancer Francois Bee MD Lisinopril 40 MG Oral Tablet Take 1 Tablet by mouth in the morning. Blood pressure and kidney protection Ferny Sr DO Melatonin 10 MG Oral Tablet Take 1 Tablet by mouth at bedtime. Sleep Self Montelukast Sodium 10 MG Oral Tablet (Singulair) Take 1 Tablet by mouth every evening. Allergies Ferny Sr DO oxyCODONE-Acetaminophen 5-325 MG Oral Tablet (Percocet) Take 1 Tablet by mouth every 8 hours as needed for Pain, Severe. Back pain Ferny Sr DO Ozempic (1 MG/DOSE) 4 MG/3ML Subcutaneous Solution Pen-injector (Semaglutide (1 MG/DOSE)) Inject 1 mg under the skin once a week. Diabetes Ferny Sr DO Potassium Chloride ER 10 MEQ Oral Tablet Extended Release Take 1 Tablet by mouth daily at noon. Potassium supplement Ferny Sr DO Repatha SureClick 140 MG/ML Subcutaneous Solution Auto-injector (evolocumab) Inject 140 mg (1 pen) under the skin every 14 days. Remove from refrigerator 30 minutes prior to injection. Cholesterol CHE Morales Vitamin B12 1000 MCG Oral Tablet Extended Release Take 1,000 mcg by mouth daily in evening General health Self VITAMIN C 500 MG PO TABS Take 1 Tablet by mouth daily at noon. General health Self Vitamin D High Potency 25 MCG (1000 UT) Oral Capsule (Cholecalciferol) Take 1 Capsule by mouth daily at noon Bones Self * MTM To-Do-List - Betty Topete [facility] - 10/15/2023 9:25 AM EDT Images from the original note were not included. What we talked about: What I should do: The importance of taking your medication as prescribed Your medicine works best when taken as prescribed. It can be hard to remember to take daily medications. Consider making it a part of your daily routine. Pair taking your medication with something you do every day, like brushing your teeth or eating a meal. Consider setting daily alarms to help remind yourself when it is time to take your medicine. Using a pill box can also help you organize your medicines. Pill boxes allow you to fill each day slot with your daily medicine and help you track when your next dose is due. What we talked about: What I should do: You're starting your repatha injections this week. Refer to the video from Diana and the handout from Betty regarding technique. Please call or message with any questions. What we talked about: What I should do: You're having some shakiness lately. This could be a side effect of one of your medications, or unrelated. Keep a journal of your good days and bad days, along with the other information we discussed. Also make sure to use the oxycodone as little as possible as this has the potential to cause unsteadinessand falls as well. What we talked about: What I should do: Sometimes low blood sugars can be a reason for being shaky. Check your blood sugars daily and when you're feeling shaky and write them down. Call Betty ([phone]) with any sugars less than 80. documented in this encounter Plan of Treatment Upcoming Encounters Date Type Department Care Team (Late st Contact Info) Description 10/17/2023 11:00 AM EDT Office Visit Family Practice [address] [facility] [address] [facility], [place] [phone] College, Health Director Account Management Fam Prac [facility] [address] [facility], [place] [address] 12/03/2023 10:40 AM EDT Office Visit Family Practice [facility] [address] [facility], [place] [phone] Ferny Sr, DO [address] [facility], [place] [address] 12/26/2023 11:00 AM EDT Office Visit Cardiology [facility] [address] [facility] [place] [address] [facility] Cardiology [facility] 132 [facility] [place] [address] 02/24/2024 11:00 AM EDT Laboratory Laboratory [facility] [address] [place] [phone] Naomi [facility] 200 [facility] [place] [address] 02/24/2024 12:00 PM EDT Office Visit Hematology/Oncolog y [facility] [address] [place] [phone] Michelle Ruffin CRNP [address] [place], [place] [address] [id number] 03/02/2024 2:30 PM EDT Hospital Encounter ENDO [facility], Endoscopy Room [facility] [address] [facility] [place] [phone] Landon Kline MD [address] [place] [address] 03/02/2024 2:30 PM EDT - 03/02/2024 3:00 PM EDT Surgery ENDO [facility], Endoscopy Room [facility] [address] [place] [phone] Landon Kline MD [address] [place] [address] COLONOSCOPY FLEXIBLE PROXIMAL DIAGNOSTIC 04/02/2024 10:30 AM EDT Office Visit Sleep Disorders Ctr [facility] [address] [place] [phone] Mara Archibald CRNP [address] [place] [address] 05/11/2024 11:15 AM EST Office Visit Dermatology [facility] 200 [facility] [place] [address] Kingston Huertas MD 200 [facility] [place] [address] Scheduled Procedures Name Priority Associated Diagnoses Date/Ti [...] Screening 07/29/2024 07/29/2023 CKD HGB USE SMARTSET 80641 09/15/202409/15, 09/16/2023, 08/26/2023, Additional history exists CKD PHOS USE SMARTSET 10293 09/15/202409/04, 08/26/2023, 11/21/2022, Additional history exists O2 ASSESSMENT COMPLETED IN PAST YEAR FOR COPD 09/15/2024 09/16/2023 DXA Scan 08/18/2025 08/18/2023, 03/2022, 10/19/2012, Additional history exists DTaP,Tdap,and Td Vaccines (3 - Td or Tdap) 09/17/2027 09/16/2017, 04/06/2008, 11/06/1995 Pneumococcal Vaccine: 65+ Years Completed 10/14/2014, 04/02/2011, 12/21/2002 Zoster Vaccines Completed 09/15/2019, 10/2018, 06/14/2009 LUNG CANCER SCREENING - USE SMARTSET 67143 Completed 05/16/2021, 02/17/2020, 02/11/2019, Additional history exists COLONOSCOPY-EVERY 5 YRS AGES 18-100 Discontinued 09/04/2022, 02/13/2015, 08/19/2011, Additional history exists Influenza Vaccine (FLU shot) Completed 03/18/2023, 03/13/2022, 03/26/2021, Additional history exists COVID-19 Vaccine Completed 04/29/2023, 02/2022, 12/11/2021, Additional history exists VITAMIN D LEVEL ONCE IN A LIFETIME-USE SMARTSET# 03175 Completed 08/26/2023, 07/15/2022, 03/13/2022, Additional history exists [...] this encounter Medical Devices Implanted Type Area Trommel Tender Device Identifier Shelf Expiration Date Model / Serial / Lot Lens Intraoc 18.5 - [id number] - [id number] Implanted:Qty: 1 on 04/03/2021 by Irvin Canchola MD at OR [facility] Left: Eye [employer] 01/03/2026 [id number] / [id number] / [id number] Lens Intraoc 18.5 - [id number] - [id number] Implanted:Qty: 1 on 04/10/2021 by Irvin Canchola MD at OR [facility] Right: Eye [employer] 01/03/2026 [id number] / [id number] / [id number] documented as of this encounter Visit Diagnoses Diagnosis Referred for management of medication therapy- Primary Encounter for long-term (current) use of other medications History of colonic polyps Personal history of colonic polyps documented in this encounter Care Teams Director Information Relationship Specialty Start Date End Date Ferny Sr DO [address] [place] [address] PCP - General Internal Medicine 08/31/18 documented as of this encounter
--- OUTSIDE RECORDS SUMMARY | 2024-01-20 22:02 | External Medical Summary | Summary of Care ---
Author Name Unknown Organization [facility] Address [address] [place] [address] Phone [phone] Care Team Providers Care Client Solutions Director Name Role Phone Ferny Sr DO Primary Care Provider [phone] Reason for Visit * Reason Onset Date Comments Advice 10/27/202310/26 Encounter Details Date Type Department Care Team (Late st Contact Info) Description 10/27/2023 Telephone Family Practice 65 [facility] [place] [address] [place] [address] Ferny Sr DO [address] [place] [address] Advice (10/26) Allergies Active Allergy Reactions Criticality Noted Date Comments Clarithromycin Other (Please comment) Low 06/07/200 1 "Burning mouth" sensation. documented as of this encounter (statuses as of 10/27/2023) Medications Medication Sig Dispensed Refills Start Date End Date Status CHiWAO Mobile AppTOUCH ULTRA SYSTEM W/DEVICE KITIndications:DM type 2, goal [...] 01/11/2020 Active Additional Information Patient taking differently:2 [place] Each NostrilHS, Indications: allergies, Reported on 08/13/2022 [...] mouth daily. 0 Active GNP Calcium 1200 5283-4256 MG-UNIT Oral Tablet Chewable Take 1 Tablet [...] morning. 100 Tablet 3 08/04/2023 Active Pen [place] 32G X 4 MMIndications:Type 2 diabetes mellitus with peripheral neuropathy ([facility]) Use as directed. Once daily 100 [...] Osteoporosis without current pathological fractu re 08/27/2023 watermelon inspector current use of aromatase inhibitor Type [...] and oxygen 06/08 Overview: with 4 LPM [facility] Last Assessment & Plan: Compliant with [...] 07/15/2022 Open-angle glaucoma 06/14/2021 10/16/19 Atherosclerosis of [place] ronary artery without angina pectoris 03/26/2021 [...] mRNA, LNP-s, No Pre serve, 2-Dose Series ([employer]) 05/14/2021,09/21/2020,08/31/2020 COVID-19, LNP-s, No Preserve , Jose-sucrose, Ages 12+ (Pfizer) 12/11/2021 COVID-19, MRNA-LNP, 23-24, P F, 30 MCG/0.3 mL, 12 YRS AND ABOVE, IM ([facility]) 04/29/2023 Covid-19, Mrna, Lnp-s, Pf, [...] 10/27/2023 2:32 PM EDT [facility]irmed [facility]. Pended med with confirmed [...] AM EDT Office Visit Family Practice 65 [facility] [place] 293 [facility], [place] [address] Ferny Sr DO 293 [facility], [place] [address] 12/26/2023 11:00 AM EDT Office Visit Cardiology, [facility] [address] [place] [address] [facility] 132 [facility] [place] [address] 02/24/2024 11:00 AM EDT Laboratory Laboratory [facility] [address] [place] [phone] Naomi Lab [facility] 200 [facility] [place] [address] 02/24/2024 12:00 PM EDT Office Visit Hematology/Oncolog y [facility] [place] [address] [place] [phone] Michelle Ruffin, LEGAL BILLING ANALYST 400 [facility] [place] [address] 03/02/2024 2:30 PM EDT Hospital Encounter ENDO [facility], Endoscopy Room [facility] [address] [place] [phone] Landon Kline MD [address] [place] [address] 03/02/2024 2:30 PM EDT - 03/02/2024 3:00 PM EDT Surgery ENDO [facility], Endoscopy Room [facility] [address] [place] [phone] Landon Kline MD [address] [place] [address] COLONOSCOPY FLEXIBLE PROXIMAL DIAGNOSTIC 04/02/2024 10:30 AM EDT Office Visit Sleep Disorders Ctr [facility] [address] [place] [phone] Mara Archibald CRNP [address] [place] [address] 05/11/2024 11:15 AM EST Office Visit Dermatology [facility] 200 [facility] [place] [address] Kingston Huertas MD [address] [place] [address] Scheduled Procedures Name Priority Associated Diagnoses Date/Ti [...] Screening 07/29/2024 07/29/2023 CKD HGB USE SMARTSET 47984 09/15/202409/15, 09/16/2023, 08/26/2023, Additional history exists CKD PHOS USE SMARTSET 32409 09/15/202409/04, 08/26/2023, 11/21/2022, Additional history exists O2 [...] D LEVEL ONCE IN A LIFETIME-USE SMARTSET# 68848 Completed 08/26/2023, 07/15/2022, 03/13/2022, Additional history exists [...] this encounter Medical Devices Implanted Type Area Construction Carpenter Device Identifier Shelf Expiration Date Model / Serial / Lot Lens Intraoc 18.5 - [id number] - [id number] Implanted:Qty: 1 on 04/03/2021 by Irvin Canchola MD at OR [facility] Left: Eye BAUSCH & LOMB 01/03/2026 [id number] / [id number] Lens Intraoc 18.5 - [id number] - [id number] Implanted:Qty: 1 on 04/10/2021 by Irvin Canchola MD at OR [facility] Right: Eye BAUSCH & LOMB 01/03/2026 [id number] / [id number] / [id number] documented as of this encounter Care Teams Client Solutions Director Relationship Specialty Start Date End Date Ferny Sr DO [address] [place] [address] PCP - General Internal Medicine 08/31/18 documented as of this encounter
--- OUTSIDE RECORDS SUMMARY | 2024-01-20 22:02 | External Medical Summary | Summary of Care ---
Author Name Unknown Organization [facility] Address [address] [place] [address] Phone [phone] Care Team Providers Care Refrigeration Engineering Teacher Name Role Phone Ferny Sr DO Primary Care Provider [phone] Reason for Visit * Reason Onset Date Comments Advice 10/27/202310/26 Encounter Details Date Type Department Care Team (Late st Contact Info) Description 10/27/2023 Telephone Family Practice 65 [facility] [place] [address] [place] [address] Ferny Sr DO [address] [place] [address] Advice (10/26) Allergies Active Allergy Reactions Criticality Noted Date Comments Clarithromycin Other (Please comment) Low 06/07/200 1 "Burning mouth" sensation. documented as of this encounter (statuses as of 10/27/2023) Medications Medication Sig Dispensed Refills Start Date End Date Status Chinese Radio SeattleTOUCH ULTRA SYSTEM W/DEVICE KITIndications:DM type 2, goal [...] 01/11/2020 Active Additional Information Patient taking differently:2 [place] Each NostrilHS, Indications: allergies, Reported on 08/13/2022 [...] mouth daily. 0 Active GNP Calcium 1200 6313-4892 MG-UNIT Oral Tablet Chewable Take 1 Tablet [...] morning. 100 Tablet 3 08/04/2023 Active Pen [place] 32G X 4 MMIndications:Type 2 diabetes mellitus with peripheral neuropathy ([facility]) Use as directed. Once daily [...] than 70,PAD (peripheral artery disease) ([facility]) Take [...] oxygen 06/08 Overview: with 4 LPM [facility] Last Assessment & Plan: Compliant [...] 07/15/2022 Open-angle glaucoma 06/14/2021 10/16/19 Atherosclerosis of [place] co ronary artery without angina pectoris 03/26/2021 [...] mRNA, LNP-s, No Pre serve, 2-Dose Series (Pfizer) 05/14/2021,09/21/2020,08/31/2020 COVID-19, LNP-s, No Preserve , Jose-sucrose, Ages 12+ (Pfizer) 12/11/2021 COVID-19, MRNA-LNP, 23-24, P F, 30 MCG/0.3 mL, 12 YRS AND ABOVE, IM ([facility] 04/29/2023 Covid-19, Mrna, Lnp-s, Pf, B ivalent, [...] AM EDT Office Visit Family Practice 65 [facility] 293 [facility] [place] [address] Ferny Sr, 293 [place] [address] 12/26/2023 11:00 AM EDT Office Visit Cardiology, [facility] 132 [facility] [address] [facility] Cardiology [facility] 132 [facility] [address] 02/24/2024 11:00 AM EDT Laboratory Laboratory [facility] [address] [place] [phone] Naomi Lab [place] [address] [address] [place] [address] 02/24/2024 12:00 PM EDT Office Visit Hematology/Oncolog y [facility] [address] [place] [phone] Michelle Ruffin CRNP [address] [facility] [place] [phone] 03/02/2024 2:30 PM EDT Hospital Encounter ENDO [facility], Endoscopy Room [facility] [address] [place] [phone] Landon Kline MD [address] [place] [address] 03/02/2024 2:30 PM EDT - 03/02/2024 3:00 PM EDT Surgery ENDO [facility], Endoscopy Room [facility] [address] [place] [address] Landon Kline MD [address] [place] [address] COLONOSCOPY FLEXIBLE PROXIMAL DIAGNOSTIC 04/02/2024 10:30 AM EDT Office Visit Sleep Disorders Ctr Jimi Hwang [place] [address] [place] [phone] Mara Archibald CRNP [address] [place] [address] 05/11/2024 11:15 AM EST Office Visit Dermatology Yvette Salgado [place] 200 [facility] [place] [address] Kingston Huertas MD 200 [facility] [place] [address] Scheduled Procedures Name Priority Associated Diagnoses Date/Ti [...] Screening 07/29/2024 07/29/2023 CKD HGB USE SMARTSET 40075 09/15/202409/15, 09/16/2023, 08/26/2023, Additional history exists CKD PHOS USE SMARTSET 94551 09/15/202409/04, 08/26/2023, 11/21/2022, Additional history exists O2 [...] D LEVEL ONCE IN A LIFETIME-USE SMARTSET# 19910 Completed 08/26/2023, 07/15/2022, 03/13/2022, Additional history exists [...] this encounter Medical Devices Implanted Type Area Horse Show Manager Device Identifier Shelf Expiration Date Model / Serial / Lot Lens Intraoc 18.5 - [id number] - [id number] Implanted:Qty: 1 on 04/03/2021 by Irvin Canchola MD at OR [facility] Left: Eye BAUSCH & LOMB 01/03/2026 [id number] / [id number] / [id number] Lens Intraoc 18.5 - [id number] - [id number] Implanted:Qty: 1 on 04/10/2021 by Irvni Canchola MD at OR [facility] Right: Eye BAUSCH & LOMB 01/03/2026 [id number] / [id number] / [id number] documented as of this encounter Care Teams Refrigeration Engineering Teacher Relationship Specialty Start Date End Date Ferny Sr DO [address] [place] [address] PCP - General Internal Medicine 08/31/18 documented as of this encounter
--- OUTSIDE RECORDS SUMMARY | 2024-01-20 22:02 | External Medical Summary | Summary of Care ---
Author Name Unknown Organization [facility] Address [address] [place] [address] Phone [phone] Care Team Providers Care Salvage Grinder Name Role Phone Freny Sr DO Primary Care Provider [phone] Reason for Visit * Reason Onset Date Comments Advice 10/27/202310/26 Encounter Details Date Type Department Care Team (Late st Contact Info) Description 10/27/2023 Telephone Family Practice 65 [facility] [place] [address] [place] [address] Ferny Sr DO [address] [place] [address] Advice (10/26) Allergies Active Allergy Reactions Criticality Noted Date Comments Clarithromycin Other (Please comment) Low 06/07/200 1 "Burning mouth" sensation. documented as of this encounter (statuses as of 10/27/2023) Medications Medication Sig Dispensed Refills Start Date End Date Status ThuuzTOUCH ULTRA SYSTEM W/DEVICE KITIndications:DM type 2, goal [...] 01/11/2020 Active Additional Information Patient taking differently:2 [place] Each NostrilHS, Indications: allergies, Reported on 08/13/2022 [...] mouth daily. 0 Active GNP Calcium 1200 5490-9996 MG-UNIT Oral Tablet Chewable Take 1 Tablet [...] morning. 100 Tablet 3 08/04/2023 Active Pen [place] 32G X 4 MMIndications:Type 2 diabetes mellitus with peripheral neuropathy ([facility]) Use as directed. Once daily 100 Each [...] than 70,PAD (peripheral artery disease) ([facility]) Take 1 Tablet by [...] Osteoporosis without current pathological fractu re 08/27/2023 medical terminologist current use of aromatase inhibitor Type 2 [...] 07/15/2022 Open-angle glaucoma 06/14/2021 10/16/19 Atherosclerosis of [place] co ronary artery without angina pectoris 03/26/2021 [...] mRNA, LNP-s, No Pre serve, 2-Dose Series ([employer]) 05/14/2021,09/21/2020,08/31/2020 COVID-19, LNP-s, No Preserve , Jose-sucrose, Ages 12+ (Pfizer) 12/11/2021 COVID-19, MRNA-LNP, 23-24, P F, 30 MCG/0.3 mL, 12 YRS AND ABOVE, IM ([facility]) 04/29/2023 Covid-19, Mrna, Lnp-s, [...] AM EDT Office Visit Family Practice [address] [place] [address] [address] [place] [address] Ferny Sr DO [address] [facility] [place] [address] 12/26/2023 11:00 AM EDT Office Visit [facility] 132 [facility] [place] [address] [facility] Cardiology [facility] 132 [facility] [place] [address] 02/24/2024 11:00 AM EDT Laboratory Laboratory [facility] [address] [place] [phone] Naomi, Lab Scenery [address] [place] [address] 02/24/2024 12:00 PM EDT Office Visit Hematology/Oncolog y Yvette Salgado [place] [address] [place] [phone] Michelle Ruffin CRNP [address] [place] [address] 03/02/2024 2:30 PM EDT Hospital Encounter ENDO [facility], Endoscopy Room [facility] [address] [place] [phone] Landon Kline MD [address] [place] [address] 03/02/2024 2:30 PM EDT - 03/02/2024 3:00 PM EDT Surgery ENDO [facility], Endoscopy Room [facility] [address] [place] [phone] Landon Kline MD [address] [place] [address] COLONOSCOPY FLEXIBLE PROXIMAL DIAGNOSTIC 04/02/2024 10:30 AM EDT Office Visit Sleep Disorders Ctr [facility] [place] [address] [place] [phone] Mara Archibald CRNP [address] [place] [address] 05/11/2024 11:15 AM EST Office Visit Dermatology Yvette Salgado [place] [address] [place], [place] [address] Kingston Huertas MD 200 [facility] [place] [address] Scheduled Procedures Name Priority Associated Diagnoses Date/Ti [...] Screening 07/29/2024 07/29/2023 CKD HGB USE SMARTSET 80035 09/15/202409/15, 09/16/2023, 08/26/2023, Additional history exists CKD PHOS USE SMARTSET 00115 09/15/202409/04, 08/26/2023, 11/21/2022, Additional history exists O2 [...] D LEVEL ONCE IN A LIFETIME-USE SMARTSET# 60049 Completed 08/26/2023, 07/15/2022, 03/13/2022, Additional history exists [...] this encounter Medical Devices Implanted Type Area Preanalytics Team Lead Device Identifier Shelf Expiration Date Model / Serial / Lot Lens Intraoc 18.5 - [id number] - [id number] Implanted:Qty: 1 on 04/03/2021 by Irvin Canchola MD at OR [facility] Left: Eye BAUSCH & LOMB 01/03/2026 [id number] / [id number] / [id number] Lens Intraoc 18.5 - [id number] - [id number] Implanted:Qty: 1 on 04/10/2021 by Irvin Canchola MD at OR [facility] Right: Eye BAUSCH & LOMB 01/03/2026 [id number] / [id number] / [id number] documented as of this encounter Care Teams Salvage Grinder Relationship Specialty Start Date End Date Ferny Sr DO [address] [place] [address] PCP - General Internal Medicine 08/31/18 documented as of this encounter
--- OUTSIDE RECORDS SUMMARY | 2024-01-20 22:02 | External Medical Summary | Summary of Care ---
Author Name Unknown Organization [facility] Address [address] [place] [address] Phone [phone] Care Team Providers Care Team Guide Name Role Phone Ferny Sr DO Primary Care Provider [phone] Reason for Visit * Reason Onset Date Comments Advice 10/27/202310/26 Encounter Details Date Type Department Care Team (Late st Contact Info) Description 10/27/2023 Telephone Family Practice 65 [facility] [place] [address] [place] [address] Ferny Sr DO 293 [place] [address] Advice (10/26) Allergies Active Allergy Reactions Criticality Noted Date Comments Clarithromycin Other (Please comment) Low 06/07/200 1 "Burning mouth" sensation. documented as of this encounter (statuses as of 10/27/2023) Medications Medication Sig Dispensed Refills Start Date End Date Status JJ PHARMATOUCH ULTRA SYSTEM W/DEVICE KITIndications:DM type 2, goal [...] 01/11/2020 Active Additional Information Patient taking differently:2 [place] Each NostrilHS, Indications: allergies, Reported on 08/13/2022 [...] mouth daily. 0 Active GNP Calcium 1200 4470-7445 MG-UNIT Oral Tablet Chewable Take 1 Tablet [...] pe 2 diabetes, HbA1C goal < 8% ([facility]) TEST 3 X DAILY DX E11.9 100 Strip 5 06/11/2022 Active ProAir HFA 108 (90 Base) MCG/ACT Inhalation Aerosol SolutionIndications: Acute cough,COPD, group A, by GOLD 2017 classification ([facility]) Inhale 2 Puffs by mouth [...] morning. 100 Tablet 3 08/04/2023 Active Pen [place] 32G X 4 MMIndications:Type 2 diabetes mellitus with peripheral neuropathy ([facility]) Use as directed. Once daily [...] LDL less than 70,PAD (peripheral artery disease) ([facility]) Take 1 Tablet by mouth in the morning. 100 Tablet 3 09/11/2023 Active Lisinopril 40 MG Oral TabletIndications:HT N, goal below 130/80 Take 1 Tablet by mouth in the morning. 100 Tablet 3 09/11/2023 Active Insulin Glargine Solostar 100 UNIT/ML Subcutaneous Solution Pen-injectorIndicati ons:Type 2 diabetes, HbA1C goal < 8% ([facility]),Type 2 DM with CKD stage 3 and hypertension ([facility]) Inject 30 Units under the [...] 07/15/2022 Open-angle glaucoma 06/14/2021 10/16/19 Atherosclerosis of [place] co ronary artery without angina pectoris [...] mRNA, LNP-s, No Pre serve, 2-Dose Series ([facility]) 05/14/2021,09/21/2020,08/31/2020 COVID-19, LNP-s, No Preserve , Jose-sucrose, Ages 12+ (Pfizer) 12/11/2021 COVID-19, MRNA-LNP, 23-24, P F, 30 MCG/0.3 mL, 12 YRS AND ABOVE, IM ([facility]) 04/29/2023 Covid-19, Mrna, Lnp-s, Pf, [...] 10:40 AM EDT Office Visit Family Practice [address] [place] [address] [address] [place] [address] Ferny Sr DO 293 [facility] [place] [address] 12/26/2023 11:00 AM EDT Office Visit [facility] 132 [facility] [place] [address] Jaiden [facility] Cardiology [facility] 132 [facility] [place] [address] 02/24/2024 11:00 AM EDT Laboratory Laboratory [facility] [address] [place] [phone] Naomi, Lab Scenery [address] [place] [address] 02/24/2024 12:00 PM EDT Office Visit Hematology/Oncolog y Yvette Salgado [place] [address] [place] [phone] Michelle Ruffin CRNP [address] [place] [address] 03/02/2024 2:30 PM EDT Hospital Encounter ENDO [facility], Endoscopy Room [facility] [address] [place] [phone] Landon Kline MD [address] [place] [address] 03/02/2024 2:30 PM EDT - 03/02/2024 3:00 PM EDT Surgery ENDO [facility], Endoscopy Room [facility] [address] [place] [phone] Landon Kline MD [address] [place] [address] COLONOSCOPY FLEXIBLE PROXIMAL DIAGNOSTIC 04/02/2024 10:30 AM EDT Office Visit Sleep Disorders Ctr Jim[facility] [place] [address] [place] [phone] Mara Archibald CRNP [address] [place] [address] 05/11/2024 11:15 AM EST Office Visit Dermatology Yvette Salgado [place] [address] [place], [place] [address] Kingston Huertas MD 200 [facility] [place] [address] Scheduled Procedures Name Priority Associated Diagnoses Date/Ti [...] Screening 07/29/2024 07/29/2023 CKD HGB USE SMARTSET 93614 09/15/202409/15, 09/16/2023, 08/26/2023, Additional history exists CKD PHOS USE SMARTSET 21990 09/15/202409/04, 08/26/2023, 11/21/2022, Additional history exists O2 [...] D LEVEL ONCE IN A LIFETIME-USE SMARTSET# 36093 Completed 08/26/2023, 07/15/2022, 03/13/2022, Additional history exists [...] this encounter Medical Devices Implanted Type Area Risk Control Consultant Device Identifier Shelf Expiration Date Model / Serial / Lot Lens Intraoc 18.5 - [id number] - [id number] Implanted:Qty: 1 on 04/03/2021 by Irvin Canchola MD at OR [facility] Left: Eye BAUSCH & LOMB 01/03/2026 [id number] / [id number] / [id number] Lens Intraoc 18.5 - [id number] - [id number] Implanted:Qty: 1 on 04/10/2021 by Irvin Canchola MD at OR [facility] Right: Eye BAUSCH & LOMB 01/03/2026 [id number] / [id number] / [id number] documented as of this encounter Care Teams Team Guide Relationship Specialty Start Date End Date Ferny Sr DO 293 [place] [address] PCP - General Internal Medicine 08/31/18 documented as of this encounter
--- OUTSIDE RECORDS SUMMARY | 2024-01-20 22:03 | External Medical Summary | Summary of Care ---
Author Name Unknown Organization [facility] Address [address] [place] [address] Phone [phone] Care Team Providers Care Robotics Technologist Name Role Phone Ferny Sr DO Primary Care Provider [phone] Encounter Details Date Type Department Care Team (Late st Contact Info) Description 10/07/2023 Documentation [facility] Linsey Cho, Health Line Crewman Allergies Active Allergy Reactions Criticality Noted Date Comments Clarithromycin Other (Please comment) Low 1 "Burning mouth" sensation. documented as of this encounter (statuses as of 10/07/2023) Medications Medication Sig Dispensed Refills Start Date [...] 01/11/2020 Active Additional Information Patient taking differently:2 [place] Each NostrilHS, Indications: allergies, Reported on 08/13/2022 [...] mouth daily. 0 Active GNP Calcium 1200 9320-9809 MG-UNIT Oral Tablet Chewable Take 1 Tablet [...] pe 2 diabetes, HbA1C goal < 8% ([facility]) TEST 3 X DAILY DX E11.9 100 Strip 5 06/11/2022 Active ProAir HFA 108 (90 Base) MCG/ACT Inhalation Aerosol SolutionIndications: Acute cough,COPD, group A, by GOLD 2017 classification ([facility]) Inhale 2 Puffs by mouth in the morning and 2 Puffs at noon and 2 Puffs in the evening and 2 Puffs before bedtime. 8 g 0 09/13/2022 Active Additional Information Patient not taking.Reported on 08/13/2023 Melatonin 5 MG Oral Capsule Take 1 Capsule by mouth at bedtime. 0 Active Atorvastatin Calcium 80 MG Oral Tablet [...] gangrene, without long-term current use of insulin ([facility]),Type 2 diabetes mellitus with peripheral neuropathy ([facility]),Type 2 DM with CKD stage [...] in the morning. 100 Tablet 08/04/2023 Active Pen [place] 32G X 4 MMIndications:Type 2 diabetes mellitus [...] LDL less than 70,PAD (peripheral artery disease) ([facility]) Take 1 Tablet by mouth in the morning. 100 Tablet 3 09/11/2023 Active Lisinopril 40 MG Oral TabletIndications:HT N, goal below 130/80 Take 1 Tablet by mouth in the morning. 100 Tablet 3 09/11/2023 Active Insulin Glargine Solostar 100 UNIT/ML Subcutaneous Solution Pen-injectorIndicati ons:Type 2 diabetes, HbA1C goal < 8% ([facility]),Type 2 DM with CKD stage 3 and hypertension ([facility]) Inject 30 Units under the skin every evening. 30 mL 2 09/22/2023 Active oxyCODONE-Acetaminop hen 5-325 MG Oral Tablet (Percocet)Indication s:Disc disorder of lumbar region Take 1 Tablet by mouth every 8 hours as needed for Pain, Severe. 90 Tablet 0 09/29/2023 Active documented as of this encounter (statuses as of 10/07/2023) Active Problems Problem Noted Date Diagnosed Date Osteoporosis without current pathological fractu re 08/27/2023 longterm current use of aromatase inhibitor Type 2 [...] as of this encounter (statuses as of 10/07/2023) Resolved Problems Problem Noted Date Diagnosed Date Resolved Date Diabetes mellitus with stage 3 chronic kidney disease 07/15/2022 07/15/2022 Diabetes mellitus 07/15/2022 09/10/2022 Hypertensive heart disease without CHF 01/04/2022 07/15/2022 Open-angle glaucoma 06/14/2021 10/16/19 Atherosclerosis of elim [place] co ronary artery without angina pectoris [...] as of this encounter (statuses as of 10/07/2023) Immunizations Name Administration Dates Next Due COVID-19 mRNA, LNP-s, No Pre serve, 2-Dose Series ([employer]) 05/14/2021,09/21/2020,08/31/2020 COVID-19, LNP-s, No Preserve , Jose-sucrose, Ages 12+ ([employer]) 12/11/2021 COVID-19, MRNA-LNP, 23-24, P F, 30 MCG/0.3 mL, 12 YRS AND ABOVE, IM [facility] 04/29/2023 Covid-19, Mrna, [...] encounter Progress Notes * Linsey Cho Health Line Crewman - 10/07/2023 2:23 PM EDT Did patient attend session 7 of 10 of the small group balance program? Yes: Patient attended session 7 of 10 of the small group balance program. Session 7 focused on a review of fall prevention in the home, lower extremity strengthening and hand eye coordination drills from the previous sessions. Pr acticed exercises as a group. documented in this encounter Plan of Treatment Upcoming Encounters Date Type Department Care Team (Late st Contact Info) Description 11/07/2023 9:00 AM EDT Procedure Only Endoscopy, [facility] [address] [place] [address] Landon Kline MD [address] [place] [address] 12/03/2023 10:40 AM EDT Office Visit Family Practice [address] [place] [address] [address] [place] [address] Ferny Sr, [address] [place] [address] 12/26/2023 11:00 AM EDT [facility] [address] [place] [address] [facility] Cardiology [facility] [address] [place] [address] 02/24/2024 11:00 AM EDT Laboratory Laboratory [facility] [address] [place] [address] Naomi [facility] [address] [facility] [place] [address] 02/24/2024 12:00 PM EDT Office Visit Hematology/Oncology [facility] [place] [address] [place] [phone] Michelle Ruffin CRNP [address] [place] [address] 04/02/2024 10:30 AM EDT Office Visit Sleep Disorders Ctr Jimi Hwang [place] 132 [facility] [place] [phone] Mara Archibald CRNP 132 [facility] [place] [address] 05/11/2024 11:15 AM EST Office Visit Dermatology [facility] [place] 200 [facility] [address] [place], [place] [address] Kingston Huertas MD [address] [facility] [place] [address] Health Maintenance Due Date Last Done Comments [...] Screening 07/29/2024 07/29/2023 CKD HGB USE SMARTSET 79550 09/15/202409/15, 09/16/2023, 08/26/2023, Additional history exists CKD PHOS USE SMARTSET 92557 09/15/202409/04, 08/26/2023, 11/21/2022, Additional history exists O2 ASSESSMENT COMPLETED IN PAST YEAR FOR COPD 09/15/2024 09/16/2023 DXA Scan 08/18/2025 08/18/2023, 03/2022, 10/19/2012, Additional history exists DTaP,Tdap,and Td Vaccines (3 - Td or Tdap) 09/17/2027 09/16/2017, 04/06/2008, 11/06/1995 Pneumococcal Vaccine: 65+ Years Completed 10/14/2014, 04/02/2011, 12/21/2002 Zoster Vaccines Completed 09/15/2019, 10/2018, 06/14/2009 LUNG CANCER SCREENING - USE SMARTSET 26842 Completed 05/16/2021, 02/17/2020, 02/11/2019, Additional history exists COLONOSCOPY-EVERY 5 YRS AGES 18-100 Discontinued 09/04/2022, 02/13/2015, 08/19/2011, Additional history exists Influenza Vaccine (FLU shot) Completed 03/18/2023, 03/13/2022, 03/26/2021, Additional history exists COVID-19 Vaccine Completed 04/29/2023, 02/2022, 12/11/2021, Additional history exists VITAMIN D LEVEL ONCE IN A LIFETIME-USE SMARTSET# 09340 Completed 08/26/2023, 07/15/2022, 03/13/2022, Additional history exists [...] this encounter Medical Devices Implanted Type Area Belt Loop Machine Operator Device Identifier Shelf Expiration Date Model / Serial / Lot Lens Intraoc 18.5 - [id number] - [id number] Implanted:Qty: 1 on 04/03/2021 by Irvin Canchola MD at OR [facility] Left: Eye [employer]OMB 01/03/2026 [id number] / [id number] / [id number] Lens Intraoc 18.5 - [id number] - [id number] Implanted:Qty: 1 on 04/10/2021 by Irvin Canchola MD at OR [facility] Right: Eye BAUSCH [employer] LOMB 01/03/2026 [id number] / [id number] / [id number] documented as of this encounter Care Teams Robotics Technologist Relationship Specialty Start Date End Date Ferny Sr DO [address] [place] [address] PCP - General Internal Medicine 08/31/18 documented as of this encounter
--- OUTSIDE RECORDS SUMMARY | 2024-01-20 22:03 | External Medical Summary | Summary of Care ---
Author Name Unknown Organization [facility] Address [address] [place] [address] Phone [phone] Care Team Providers Care Sales And Marketing Representative Name Role Phone Ferny Sr DO Primary Care Provider [phone] Reason for Visit * Reason Comments Dosage Adjustment In Person (Anticoag Cl inic) Medication Management Encounter Details Date Type Department Care Team (Late st Contact Info) Description 10/14/2023 11:30 AM EDT Pharmacy Family Practice [address] [facility] [address] [place] [phone] [place], Pharmacist [address] [address] Encounter for medication management*; Type 2 diabetes, HbA1C goal < 8% ([facility]) Allergies Active Allergy Reactions Criticality Noted Date Comments Clarithromycin Other (Please comment) Low 1 "Burning mouth" sensation. documented as of this encounter (statuses as of 10/14/2023) Medications Medication Sig Dispensed Refills Start Date [...] 01/11/2020 Active Additional Information Patient taking differently:2 [place] Each NostrilHS, Indications: allergies, Reported on 08/13/2022 [...] mouth daily. 0 Active GNP Calcium 1200 6080-4826 MG-UNIT Oral Tablet Chewable Take 1 Tablet [...] diabetes, HbA1C goal < 8% ([facility]) TEST 3 X DAILY DX E11.9 100 Strip 5 06/11/2022 Active ProAir HFA 108 (90 Base) MCG/ACT Inhalation Aerosol SolutionIndications: Acute cough,COPD, group A, by GOLD 2017 classification ([facility]) Inhale 2 Puffs by mouth in the [...] (HCC),Type 2 diabetes mellitus with peripheral neuropathy ([facility]),Type 2 DM with CKD stage 3 and hypertension ([facility]),Type 2 diabetes, HbA1C goal < 8% ([facility]) Take 1 Tablet by mouth in the morning. 100 Tablet 2 08/04/2023 Active Letrozole 2.5 MG Oral Tablet (Femara)Indications: Malignant neoplasm of right breast in female, estrogen receptor positive, unspecified site of breast ([facility]) Take 1 Tablet by mouth in the morning. 100 Tablet 3 08/04/2023 Active Pen [place] 32G X 4 MMIndications:Type 2 diabetes mellitus with peripheral neuropathy ([facility]) Use as directed. Once daily 100 Each 3 08/12/2023 Active amLODIPine Besylate 2.5 MG Oral Tablet (Norvasc)Indications :Type 2 DM with CKD stage 3 and hypertension ([facility]) Take 1 Tablet by mouth in the morning. 100 Tablet 3 08/13/2023 Active DULoxetine HCl 60 MG Oral Capsule Delayed Release Particles (Cymbalta) Take 1 Capsule by mouth at bedtime. 100 Capsule 2 08/20/2023 Active Potassium Chloride ER 10 MEQ Oral Tablet Extended ReleaseIndications:C hronic diastolic congestive heart failure ([facility]) Take 1 Tablet by mouth in the morning. 100 Tablet 2 08/20/2023 Active Montelukast Sodium 10 MG Oral Tablet (Singulair)Indicatio ns:Allergic rhinitis Take 1 Tablet by mouth every evening. 100 Tablet 08/25/2023 Active Ozempic (1 MG/DOSE) 4 MG/3ML Subcutaneous Solution Pen-injector (Semaglutide (1 MG/DOSE))Indications :Type 2 DM with CKD stage 3 and hypertension ([facility]) Inject 1 mg under the skin once [...] than 70,PAD (peripheral artery disease) ([facility]) Take 1 Tablet by mouth in the morning. 100 Tablet 3 09/11/2023 Active Lisinopril 40 MG Oral TabletIndications:HT N, goal below 130/80 Take 1 Tablet by mouth in the morning. 100 Tablet 3 09/11/2023 Active Insulin Glargine Solostar 100 UNIT/ML Subcutaneous Solution Pen-injectorIndicati ons:Type 2 diabetes, HbA1C goal < 8% ([facility]),Type 2 DM with CKD stage 3 and hypertension ([facility]) Inject 30 Units under the skin every evening. 30 mL 2 09/22/2023 Active oxyCODONE-Acetaminop hen 5-325 MG Oral Tablet (Percocet)Indication s:Disc disorder of lumbar region Take 1 Tablet by mouth every 8 hours as needed for Pain, Severe. 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 Type 2 [...] and oxygen 06/08 Overview: with 4 M [facility] Last Assessment & Plan: Compliant with BiPAP ADVANCE DIRECTIVE INFORMATION 12/07/2004 Overview: Yes, Patient instructed to provide copy of advance directive for provider to review and to be scanned into Electronic Medical Record Trigeminal neuralgia Mixed rhinitis Irritable bowel syndrome documented as of this encounter (statuses as of 10/14/2023) Resolved Problems Problem Noted Date Diagnosed Date Resolved Date Diabetes mellitus with stage 3 chronic kidney disease 07/15/2022 07/15/2022 Diabetes mellitus 07/15/2022 09/10/2022 Hypertensive heart disease without CHF 01/04/2022 07/15/2022 Open-angle glaucoma 06/14/2021 10/16/19 Atherosclerosis of [place] co ronary artery without [...] as of this encounter (statuses as of 10/14/2023) Immunizations Name Administration Dates Next Due COVID-19 mRNA, LNP-s, No Pre serve, 2-Dose Series ([employer]) 05/14/2021,09/21/2020,08/31/2020 COVID-19, LNP-s, No Preserve , Jose-sucrose, [...] money to buy more. Never true 07/29/19 Within the past 12 months, t he [...] of this encounter Progress Notes * Betty Topete RPh - 10/14/2023 12:49 PM EDT CMR completed today in Medication Management encounter (10/14/23). Patient complaining of being shaky and having tremors. Chronic issues that she feels may be worse. Patient to journal for next week and see possible causes or patterns and then follow up. Betty Cui, Pharm D, BCACP Clinical Pharmacist [address] [place] [address] - Medication Therapy [facility] 10/14/2023, 12:59 PM Ph. [phone] documented in this encounter Plan of Treatment Upcoming Encounters Date Type Department Care Team (Late st Contact Info) Description 11/07/2023 9:00 AM EDT Procedure Only Endoscopy, [facility] [address] [place] [address] Landon Kline MD [address] [place] [address] 12/03/2023 10:40 AM EDT Office Visit Family Practice [address] [place] [address] [address] [place] [address] [place] [address] Ferny Sr, DO [address] [place], [place] [address] 12/26/2023 11:00 AM EDT Office Visit Cardiology, [facility] [address] [facility] Cardiology [facility] 132 [place] [address] 02/24/2024 11:00 AM EDT Laboratory Laboratory [facility] [place] 200 [facility] [address] [place] [phone] Na[address] [place] [address] [address] [facility] [place] [address] 02/24/2024 12:00 PM EDT Office Visit Hematology/Oncology [facility] [place] [address] [place] [address] [phone] Michelle Ruffin CRNP [facility] [address] 04/02/2024 10:30 AM EDT Office Visit [facility] Disorders Ctr [facility] [address] [facility] [phone] Mara Archibald CRNP [address] [facility] [address] 05/11/2024 11:15 AM EST Office Visit Dermatology [facility] Naomi [place] [address] [place] [address] [place] [address] Kingston Huertas MD 200 [facility] [place] [address] Health Maintenance Due Date Last Done Comments [...] Screening 07/29/2024 07/29/2023 CKD HGB USE SMARTSET 81751 09/15/202409/15, 09/16/2023, 08/26/2023, Additional history exists CKD PHOS USE SMARTSET 04816 09/15/202409/04, 08/26/2023, 11/21/2022, Additional history exists O2 ASSESSMENT COMPLETED IN PAST YEAR FOR COPD 09/15/2024 09/16/2023 DXA Scan 08/18/2025 08/18/2023, 03/2022, 10/19/2012, Additional history exists DTaP,Tdap,and Td Vaccines (3 - Td or Tdap) 09/17/2027 09/16/2017, 04/06/2008, 11/06/1995 Pneumococcal Vaccine: 65+ Years Completed 10/14/2014, 04/02/2011, 12/21/2002 Zoster Vaccines Completed 09/15/2019, 1110/2018, 06/14/2009 LUNG CANCER SCREENING - USE SMARTSET 86301 Completed 05/16/2021, 02/17/2020, 02/11/2019, Additional history exists COLONOSCOPY-EVERY 5 YRS AGES 18-100 Discontinued 09/04/2022, 02/13/2015, 08/19/2011, Additional history exists Influenza Vaccine (FLU shot) Completed 03/18/2023, 03/13/2022, 03/26/2021, Additional history exists COVID-19 Vaccine Completed 04/29/2023, 02/2022, 12/11/2021, Additional history exists VITAMIN D LEVEL ONCE IN A LIFETIME-USE SMARTSET# [id number] Completed 08/26/2023, 07/15/2022, 03/13/2022, Additional history exists [...] this encounter Medical Devices Implanted Type Area Field Crop Harvest Worker Device Identifier Shelf Expiration Date Model / Serial / Lot Lens Intraoc 18.5 - [id number] - [id number] Implanted:Qty: 1 on 04/03/2021 by Irvin Canchola MD at OR [facility] Left: Eye [employer]CH [employer]OMB 01/03/2026 [id number] / [id number] / [id number] Lens Intraoc 18.5 - [id number] - [id number] Implanted:Qty: 1 on 04/10/2021 by Irvin Canchola MD at OR [facility] Right: Eye [employer]CH [employer] LOMB 01/03/2026 [id number] / [id number] / [id number] documented as of this encounter Visit Diagnoses Diagnosis Encounter for medication management- Primary Encounter for long-term (current) use of other medications Type 2 diabetes, HbA1C goal < 8% (HCC) Type II or unspecified type diabetes mellitus without mention of complication, not stated as uncontrolled documented in this encounter Care Teams Sales And Marketing Representative Relationship Specialty Start Date End Date Ferny Sr DO [address] [facility] [place] [address] PCP - General Internal Medicine 08/31/18 documented as of this encounter
--- OUTSIDE RECORDS SUMMARY | 2024-01-20 22:03 | External Medical Summary | Summary of Care ---
Author Name Unknown Organization [facility] Address [address] [place] [address] Phone [phone] Care Team Providers Care Supervisor Education Name Role Phone Ferny Sr DO Primary Care Provider [phone] Encounter Details Date Type Department Care Team (Late st Contact Info) Description 09/26/2023 Telephone Cardiology, [facility] [address] [place] [address] [facility] Cardiology [facility] [address] [place] [address] Allergies Active Allergy Reactions Criticality Noted Date Comments Clarithromycin Other (Please comment) Low 1 "Burning mouth" sensation. documented as of this encounter (statuses as of 10/09/2023) Medications Medication Sig Dispensed Refills Start Date End Date Status [employer] ULTRA SYSTEM W/DEVICE KITIndications:DM type 2, goal [...] 01/11/2020 Active Additional Information Patient taking differently:2 [place] Each NostrilHS, Indications: allergies, Reported on 08/13/2022 [...] mouth daily. 0 Active GNP Calcium 1200 1721-5310 MG-UNIT Oral Tablet Chewable Take 1 Tablet [...] pe 2 diabetes, HbA1C goal < 8% ([facility]) TEST 3 X DAILY DX E11.9 100 Strip 5 06/11/2022 Active ProAir HFA 108 (90 Base) MCG/ACT Inhalation Aerosol SolutionIndications: Acute cough,COPD, group A, by GOLD 2017 classification ([facility]) Inhale 2 Puffs by mouth [...] the morning. 100 Tablet 08/04/2023 Active Pen [place] 32G X 4 MMIndications:Type 2 diabetes mellitus with peripheral neuropathy ([facility]) Use as directed. Once daily [...] Extended ReleaseIndications:C hronic diastolic congestive heart failure ([facility]) Take 1 Tablet by mouth [...] LDL less than 70,PAD (peripheral artery disease) ([facility]) Take 1 Tablet by mouth in the morning. 100 Tablet 3 09/11/2023 Active Lisinopril 40 MG Oral TabletIndications:HT N, goal below 130/80 Take 1 Tablet by mouth in the morning. 100 Tablet 3 09/11/2023 Active Insulin Glargine Solostar 100 UNIT/ML Subcutaneous Solution Pen-injectorIndicati ons:Type 2 diabetes, HbA1C goal < 8% ([facility]),Type 2 DM with CKD stage 3 and hypertension ([facility]) Inject 30 Units under the skin every evening. 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 Type 2 [...] as of this encounter (statuses as of 10/09/2023) Resolved Problems Problem Noted Date Diagnosed Date [...] as of this encounter (statuses as of 10/09/2023) Immunizations Name Administration Dates Next Due COVID-19 mRNA, LNP-s, No Pre serve, 2-Dose Series ([employer]) 05/14/2021,09/21/2020,08/31/2020 COVID-19, LNP-s, No Preserve , Jose-sucrose, Ages 12+ ([employer]) 12/11/2021 COVID-19, MRNA-LNP, 23-24, P F, 30 MCG/0.3 mL, 12 YRS AND ABOVE, [email or web address] 04/29/2023 Covid-19, Mrna, Lnp-s, Pf, [...] Telephone Encounter - Betty Topete RPh - 09/26/2023 4:47 PM EDT Patient has a allison for Repatha and it should be free. Forwarding patient's allison information to Specialty Pharmacy and to patient. Patient has [employer] allison up to $2,500 for Repatha from 07/29/2023-07/28/2024. Card# [id number] [facility] [id number] [id number] [id number] Please rebill with allison information. * Telephone Encounter - Betty Topete RPh - 09/26/2023 3:41 PM EDT Patient Phone Numbers Patient called in to [employer]. She reports the Repatha is $84 per month and its too expensive forthem, they can't afford that. She's wondering what to do. Forwarding to cardiology pharmacist and pharmacy reimbursement to see what her options are. Of note, patient makes too much for PACE. documented in this encounter Plan of Treatment Upcoming Encounters Date Type Department Care Team (Late st Contact Info) Description 11/07/2023 9:00 AM EDT Procedure Only Endoscopy, [facility] [address] [place] [address] Landon Kline MD [address] [place] [address] 12/03/2023 10:40 AM EDT Office Visit Family Practice [address] [place] [address] 293 [facility], [place] [phone] eFrny Sr DO 293 [facility], [place] [address] 12/26/2023 11:00 AM EDT Office Visit [facility]iology, [facility] [address] [facility] Cardiology [facility] [address] 02/24/2024 11:00 AM EDT Laboratory [facility] [address] [place] [phone] Na[place] [address] [facility] [place] [address] 02/24/2024 12:00 PM EDT Office Visit Hematology[facility] [address] [place] [phone] Michelle Ruffin CRNP [address] [place] [address] 04/02/2024 10:30 AM EDT Office Visit [facility] Ctr [facility] [address] [facility] [phone] Mara Archibald CRNP [address] [facility] [address] 05/11/2024 11:15 AM EST Office Visit Dermatology [facility] [place] [address] [place] [address] Kingston Huertas MD 200 [facility] [place] [address] Health Maintenance Due Date Last Done Comments [...] Screening 07/29/2024 07/29/2023 CKD HGB USE SMARTSET 26087 09/15/202409/15, 09/16/2023, 08/26/2023, Additional history exists CKD PHOS USE SMARTSET 93449 09/15/202409/04, 08/26/2023, 11/21/2022, Additional history exists O2 ASSESSMENT COMPLETED IN PAST YEAR FOR COPD 09/15/2024 09/16/2023 DXA Scan 08/18/2025 08/18/2023, 03/2022, 10/19/2012, Additional history exists DTaP,Tdap,and Td Vaccines (3 - Td or Tdap) 09/17/2027 09/16/2017, 04/06/2008, 11/06/1995 Pneumococcal Vaccine: 65+ Years Completed 10/14/2014, 04/02/2011, 12/21/2002 Zoster Vaccines Completed 09/15/2019, 10/2018, 06/14/2009 LUNG CANCER SCREENING - USE SMARTSET 48227 Completed 05/16/2021, 02/17/2020, 02/11/2019, Additional history exists COLONOSCOPY-EVERY 5 YRS AGES 18-100 Discontinued 09/04/2022, 02/13/2015, 08/19/2011, Additional history exists Influenza Vaccine (FLU shot) Completed 03/18/2023, 03/13/2022, 03/26/2021, Additional history exists COVID-19 Vaccine Completed 04/29/2023, 02/2022, 12/11/2021, Additional history exists VITAMIN D LEVEL ONCE IN A LIFETIME-USE SMARTSET# 38740 Completed 08/26/2023, 07/15/2022, 03/13/2022, Additional history exists [...] this encounter Medical Devices Implanted Type Area Employment Coordinator Device Identifier Shelf Expiration Date Model / Serial / Lot Lens Intraoc 18.5 - [id number] - [id number] Implanted:Qty: 1 on 04/03/2021 by Irvin Canchola MD at OR [facility] 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
--- OUTSIDE RECORDS SUMMARY | 2024-01-20 22:03 | External Medical Summary | Summary of Care ---
Author Name Unknown Organization [facility] Address [address] [place] [address] Phone [phone] Care Team Providers Care Clean Room Technician Name Role Phone ElnoamFerny DO Primary Care Provider [phone] Encounter Details Date Type Department Care Team (Latest Contact Info) Description 10/14/2023 Medication Management [facility] [address] [place], [place] [id number] Betty Topete, [facility] [address] [place] [address] Referred for management of medication [...] 0 Active Additional Information Patient taking differently:2 [place] Each NostrilHS, Indications: allergies, Reported on 08/13/2022 [...] mouth daily. 0 Active GNP Calcium 1200 0868-8224 MG-UNIT Oral Tablet Chewable Take 1 Tablet [...] morning. 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 Type 2 [...] 07/15/2022 Open-angle glaucoma 06/14/2021 10/16/19 Atherosclerosis of ruby co ronary artery without angina pectoris 03/26/2021 [...] mRNA, LNP-s, No Pre serve, 2-Dose Series ([employer]) 05/14/2021,09/21/2020,08/31/2020 COVID-19, LNP-s, No Preserve , Jose-sucrose, Ages 12+ ([employer]) 12/11/2021 COVID-19, MRNA-LNP, 23-24, P F, 30 MCG/0.3 mL, 12 YRS AND ABOVE, IM ([employer]) 04/29/2023 Covid-19, Mrna, Lnp-s, Pf, [...] as of this encounter Progress Notes * Mia Cui, Betty Portillo, [facility] - 10/15/2023 9:39 AM EDT Rama Alvarez [...] mouth in the morning. GNP Calcium 1200 5037-8121 MG-UNIT Oral Tablet Chewable Take 1 Tablet [...] Tablet by mouth daily at noon. Pen [place] 32G X 4 MM Use as directed. Once daily 100 Each 3 ProAir HFA 108 (90 Base) MCG/ACT Inhalation Aerosol Solution Inhale 2 Puffs by mouth in the morningand 2 Puffs at noon and 2 Puffs in the evening and 2 Puffs before bedtime. (Patient not taking: Reported on 08/13/2023) 8 g 0 [employer] Ultra Blue In Vitro Strip (Glucose Blood) TEST 3 X DAILY DX E11.9 100 Strip 5 oxygen IN GAS 4 LPM bled through BIPAP during hours of sleep. 1 Each 0 BiPAP every night at bedtime. [employer] ULTRASOFT LANCETS MISC test once daily; dx 250.00 1 Box 5 [employer] ULTRA SYSTEM W/DEVICE KIT test once daily; dx 250.00 1 Kit 0 Immunization History Administered Date(s) Administered COVID-19 mRNA, LNP-s, No Preserve, 2-Dose Series ([employer]) 08/31/2020, 09/21/2020, 05/14/2021 COVID-19, LNP-s, No Preserve, [...] pharmacist who provided the service: Betty Cui, AdamarisD, BCACP Takeaway Information Who was the recipient of the CMR service: beneficiary Language Template for the Patient Takeaway: Bhutanese I attest that I have reviewed and updated the patient's conditions, allergies, and medications to the best of my ability. Patient provided medication list gathered by: Betty Alston [facility] 10/15/2023, 9:39 AM documented in this encounter Miscellaneous Notes * MTM Personal Medication List - Betty Topete [facility] - 10/15/2023 9:28 AM EDT Medication How [...] Neuropathy Ferny Sr DO GNP Calcium 1200 9018-4984 MG-UNIT Oral Tablet Chewable Take 1 Tablet [...] refrigerator 30 minutes prior to injection. 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 General health Self Vitamin D High Potency 25 MCG (1000 UT) Oral Capsule (Cholecalciferol) Take 1 Capsule by mouth daily at noon Bones Self * MTM To-Do-List - Betty Topete RPh - 10/15/2023 9:25 AM EDT Images from [...] shaky and write them down. Call Betty ([phone]) with any sugars less than 80. documented in this encounter Plan of Treatment Upcoming Encounters Date Type Department Care Team (Late st Contact Info) Description 10/17/2023 11:00 AM EDT Office Visit Family Practice [facility] 293 [place] [phone] [facility] 65 [facility] 293 [facility], [place] [address] 12/03/2023 10:40 AM EDT Office Visit Family Practice [facility] [address] [place] [address] Ferny Sr, 293 [place] [address] 12/26/2023 11:00 AM EDT Office Visit Cardiology, [facility] 132 [facility] [place] [address] [facility] Cardiology [facility] 132 [facility] [place] [address] 02/24/2024 11:00 AM EDT Laboratory Laboratory [facility] [address] [place] [phone] Naomi, Lab [facility] 200 [facility] [place] [address] 02/24/2024 12:00 PM EDT Office Visit Hematology/Oncolog y [facility] [address] [place] [phone] Michelle Ruffin CRNP [address] [place] [address] 03/02/2024 2:30 PM EDT Hospital Encounter ENDO [facility], Endoscopy Room [facility] [address] [place] [phone] Landon Kline MD 132 [facility] [place] [address] 03/02/2024 2:30 PM EDT - 03/02/2024 3:00 PM EDT Surgery ENDO [facility], Endoscopy Room [facility] [address] [place] [phone] Landon Kline MD [address] [place] [address] COLONOSCOPY FLEXIBLE PROXIMAL DIAGNOSTIC 04/02/2024 10:30 AM EDT [facility] [address] [place] [phone] Mara Archibald CRNP [address] [place] [address] 05/11/2024 11:15 AM EST Office Visit Dermatology [place] 200 [facility] [place] [address] [place] Huertas MD 200 [place] [address] Scheduled Procedures Name Priority Associated Diagnoses Date/Ti [...] Screening 07/29/2024 07/29/2023 CKD HGB USE SMARTSET 56681 09/15/202409/15, 09/16/2023, 08/26/2023, Additional history exists CKD PHOS USE SMARTSET 29180 09/15/202409/04, 08/26/2023, 11/21/2022, Additional history exists O2 ASSESSMENT COMPLETED IN PAST YEAR FOR COPD 09/15/2024 09/16/2023 DXA Scan 08/18/2025 08/18/2023, 03/2022, 10/19/2012, Additional history exists DTaP,Tdap,and Td Vaccines (3 - Td or Tdap) 09/17/2027 09/16/2017, 04/06/2008, 11/06/1995 Pneumococcal Vaccine: 65+ Years Completed 10/14/2014, 04/02/2011, 12/21/2002 Zoster Vaccines Completed 09/15/2019, 10/2018, 06/14/2009 LUNG CANCER SCREENING - USE SMARTSET 14837 Completed 05/16/2021, 02/17/2020, 02/11/2019, Additional history exists COLONOSCOPY-EVERY 5 YRS AGES 18-100 Discontinued 09/04/2022, 02/13/2015, 08/19/2011, Additional history exists Influenza Vaccine (FLU shot) Completed 03/18/2023, 03/13/2022, 03/26/2021, Additional history exists COVID-19 Vaccine Completed 04/29/2023, 02/2022, 12/11/2021, Additional history exists VITAMIN D LEVEL ONCE IN A LIFETIME-USE SMARTSET# 61860 Completed 08/26/2023, 07/15/2022, 03/13/2022, Additional history exists [...] encounter Medical Devices Implanted Type Area Solar Resource Assessor Device Identifier Shelf Expiration Date Model / Serial / Lot Lens Intraoc 18.5 - [id number] - [id number] Implanted:Qty: 1 on 04/03/2021 by Irvin Canchola MD at OR [facility] Left: Eye [employer] 01/03/2026 [id number] / [id number] / [id number] Lens [employer]oc 18.5 - [id number] - [id number] Implanted:Qty: 1 on 04/10/2021 by Irvin Canchola MD at OR [facility] Right: Eye [employer]CH [employer]OMB 01/03/2026 [id number] / [id number] / [id number] documented as of this encounter Visit Diagnoses Diagnosis Referred for management of medication therapy- Primary Encounter for long-term (current) use of other medications History of colonic polyps Personal history of colonic polyps documented in this encounter Care Teams Clean Room Technician Relationship Specialty Start Date End Date Ferny Sr DO [address] [place] [address] PCP - General Internal Medicine 08/31/18 documented as of this encounter
--- OUTSIDE RECORDS SUMMARY | 2024-01-20 22:03 | External Medical Summary | Summary of Care ---
Author Name Unknown Organization [facility] Address [address] [place] [address] Phone [phone] Care Team Providers Care Public Relations Manager Name Role Phone Dihsa Sr DO Primary Care Provider [phone] Reason for Visit * Reason Comments eRx-Medication Refill Encounter Details Date Type Department Care Team (Late st Contact Info) Description 09/26/2023 Refill Family Practice [address], [place] [address] [place] [address] Disha Sr DO [address] [place] [address] Disc disorder of lumbar region Allergies Active Allergy Reactions Criticality Noted Date Comments Clarithromycin Other (Please comment) Low 1 "Burning mouth" sensation. documented as of this encounter (statuses as of 09/29/2023) Medications Medication Sig Dispensed Refills Start Date End Date Status [email or web address] ULTRA SYSTEM W/DEVICE KITIndications:DM type 2, goal [...] 0 Active Additional Information Patient taking differently:2 [place] Each NostrilHS, Indications: allergies, Reported on 08/13/2022 [...] mouth daily. 0 Active GNP Calcium 1200 8543-4981 MG-UNIT Oral Tablet Chewable Take 1 Tablet [...] diabetes, HbA1C goal < 8% ([facility]) TEST 3 X DAILY DX E11.9 100 Strip 5 2 Active ProAir HFA 108 (90 Base) MCG/ACT Inhalation Aerosol SolutionIndication s:Acute cough,COPD, group A, by GOLD 2017 classification ([facility]) Inhale 2 Puffs by mouth [...] morning. 100 Tablet 3 4 Active Pen [place] 32G X 4 MMIndications:Type 2 diabetes mellitus [...] once a week. 9 mL 4 Active carBAMazepine ER 400 MG Oral [...] than 70,PAD (peripheral artery disease) ([facility]) Take 1 Tablet by mouth in the morning. 100 Tablet 3 4 Active Lisinopril 40 MG Oral TabletIndications: HTN, goal below 130/80 Take 1 Tablet by mouth in the morning. 100 Tablet 3 4 Active Insulin Glargine Solostar 100 UNIT/ML Subcutaneous Solution Pen-injectorIndica tions:Type 2 diabetes, HbA1C goal < 8% ([facility]),Type 2 DM with CKD stage 3 and hypertension ([facility]) Inject 30 Units under the skin every evening. 30 mL 2 4 Active oxyCODONE-Acetamin ophen 5-325 MG Oral Tablet (Percocet)Indicati ons:Disc disorder of lumbar region Take 1 Tablet by mouth every 8 hours as needed for Pain, Severe. 90 Tablet 0 4 Active oxyCODONE-Acetamin ophen 5-325 MG Oral Tablet (Percocet)Indicati ons:Disc disorder of lumbar region Take 1 Tablet by mouth every 8 hours as needed for Pain, Moderate. 90 Tablet 0 4 09/29/19 24 Discontinued documented as of this encounter (statuses as of 09/29/2023) Active Problems Problem Noted Date Diagnosed Date [...] as of this encounter (statuses as of 09/29/2023) Resolved Problems Problem Noted Date Diagnosed Date Resolved Date Diabetes mellitus with stage 3 chronic kidney disease 07/15/2022 07/15/2022 Diabetes mellitus 07/15/2022 09/10/2022 Hypertensive heart disease without CHF 01/04/2022 07/15/2022 Open-angle glaucoma 06/14/2021 10/16/19 Atherosclerosis of [place] co ronary artery without angina pectoris 03/26/2021 [...] as of this encounter (statuses as of 09/29/2023) Immunizations Name Administration Dates Next Due COVID-19 mRNA, LNP-s, No Pre serve, 2-Dose Series (Pfizer) 05/14/2021,09/21/2020,08/31/2020 COVID-19, LNP-s, No Preserve , Jose-sucrose, Ages 12+ (Pfizer) 12/11/2021 COVID-19, MRNA-LNP, 23-24, P F, 30 MCG/0.3 mL, 12 YRS AND ABOVE, IM ([facility]) 04/29/2023 Covid-19, Mrna, Lnp-s, Pf, B ivalent, [...] Telephone Encounter - Disha Sr DO - 09/29/2023 8:03 AM EDTSigned Prescriptions: Disp Refills oxyCODONE-Acetaminophen 5-325 MG Oral Tabl*90 Tab*0 Sig: Take 1 Tablet by mouth every 8 hours as needed for Pain, Severe.Authorizing Provider: DISHA SR------- * Telephone Encounter - Disha Sr DO - 09/29/2023 8:02 AM EDT I have reviewed the patients controlled substance dispensing history in the Prescription Drug Monitoring Program in compliance with the [facility] regulations before prescribing a controlled [...] results can be found in Results Review. Medication due 09/24/2023 * Telephone Encounter - [facility] - 09/28/2023 11:57 AM EDT Pending Prescriptions: Disp Refills oxyCODONE-Acetaminophen 5-325 MG Oral Tabl*90 Tab* Sig: take 1 tablet by mouth every 8 hours if needed for moderate pain * Telephone Encounter - [facility] - 09/28/2023 11:57 AM EDT I have reviewed the patients controlled substance dispensing history in the Prescription Drug Monitoring Program in compliance with the [facility] regulations before prescribing a controlled substance. PDMP checked on 09/28/2023. Pending Prescriptions: Disp Refills oxyCODONE-Acetaminophen 5-325 MG Oral Tab*90 Tab* Sig: take 1 tablet by mouth every 8 hours if needed for moderate pain Last Visit: 07/29/2023 (in office), 08/01/2023 (telemedicine) Next Visit: 12/03/2023 Date medication was last filled: 08/26 Date medication is due for refill: 09/23 Pharmacy: [id number] [id number] [facility] Is this request for a controlled substance? Yes and Urine Drug Screen was completed Toxicology results: Results for orders placed or performed in [...] results can be found in Results Review. Please approve if appropriate. Thanks, Emerson Wayne, PharmD Clinical Pharmacist [facility](formerly telepharmacy) [phone] 09/28/2023, 11:57 AM documented in this encounter Plan of Treatment Upcoming Encounters Date Type Department Care Team (Late st Contact Info) Description 11/07/2023 9:00 AM EDT Procedure Only Endoscopy, [facility] [address] [facility] [place] [address] Landon Kline MD 132 [facility] [place] [address] 12/03/2023 10:40 AM EDT Office Visit Family Practice [address] [place] [address] 293 [place] [address] Disha Sr, 293 [place] [address] 12/26/2023 11:00 AM EDT Office Visit Cardiology, [facility] 132 [facility] [place] [address] Jaiden [facility] Cardiology [facility] 132 [facility] [place] [address] 02/24/2024 11:00 AM EDT Laboratory Laboratory [facility] [address] [place] [address] Na[place] [address] [address] [place] [address] 02/24/2024 12:00 PM EDT Office Visit Hematology/Oncology [facility] [address] [place] [phone] Michelle uRffin CRNP [address] [place] [address] [place] [address] 04/02/2024 10:30 AM EDT Office Visit Sleep Disorders Ctr [facility] 132 [facility] [place] [phone] Mara Archibald CRNP [address] [facility] [place] [address] 05/11/2024 11:15 AM EST Office Visit Dermatology [facility] [address] [place] [address] Kingston Huertas MD 200 [place] [address] Health Maintenance Due Date Last Done Comments [...] Screening 07/29/2024 07/29/2023 CKD HGB USE SMARTSET 79722 09/15/202409/15, 09/16/2023, 08/26/2023, Additional history exists CKD PHOS USE SMARTSET 76964 09/15/202409/04, 08/26/2023, 11/21/2022, Additional history exists O2 ASSESSMENT COMPLETED IN PAST YEAR FOR COPD 09/15/2024 09/16/2023 DXA Scan 08/18/2025 08/18/2023, 02/0 03/2022, 10/19/2012, Additional history exists DTaP,Tdap,and Td Vaccines (3 - Td or Tdap) 09/17/2027 09/16/2017, 04/06/2008, 11/06/1995 Pneumococcal Vaccine: 65+ Years Completed 10/14/2014, 04/02/2011, 12/21/2002 Zoster Vaccines Completed 09/15/2019, 11/10/2018, 06/14/2009 LUNG CANCER SCREENING - USE SMARTSET 69551 Completed 05/16/2021, 02/17/2020, 02/11/2019, Additional history exists COLONOSCOPY-EVERY 5 YRS AGES 18-100 Discontinued 09/04/2022, 02/13/2015, 08/19/2011, Additional history exists Influenza Vaccine (FLU shot) Completed 03/18/2023, 03/13/2022, 03/26/2021, Additional history exists COVID-19 Vaccine Completed 04/29/2023, 02/2022, 12/11/2021, Additional history exists VITAMIN D LEVEL ONCE IN A LIFETIME-USE SMARTSET# 41333 Completed 08/26/2023, 07/15/2022, 03/13/2022, Additional history exists [...] this encounter Medical Devices Implanted Type Area Trust Operations Assistant Device Identifier Shelf Expiration Date Model / Serial / Lot Lens Intraoc 18.5 - [id number] - [id number] Implanted:Qty: 1 on 04/03/2021 by Irvin Canchola MD at OR [facility] [facility] Left: Eye BAUSCH & LOMB 01/03/2026 [id number] / [id number] / [id number] Lens Intraoc 18.5 - [id number] - [id number] Implanted:Qty: 1 on 04/10/2021 by Irvin Canchola MD at OR [facility] Right: Eye BAUSCH & LOMB 01/03/2026 [id number] / [id number] / [id number] documented as of this encounter Visit Diagnoses Diagnosis Disc disorder of lumbar region Other and unspecified disc disorder of lumbar region documented in this encounter Care Teams Public Relations Manager Relationship Specialty Start Date End Date Disha Sr DO [address] [facility] [place] [address] PCP - General Internal Medicine 08/31/18 documented as of this encounter
--- OUTSIDE RECORDS SUMMARY | 2024-01-20 22:03 | External Medical Summary | Summary of Care ---
Author Name Unknown Organization [facility] Address [address] [place] [address] Phone [phone] Care Team Providers Care Deburr Operator Name Role Phone Ferny Sr DO Primary Care Provider [phone] Encounter Details Date Type Department Care Team (Late st Contact Info) Description 10/03/2023 Documentation [facility] Linsey Cho, Health Fourth Mate Allergies Active Allergy Reactions Criticality Noted Date Comments Clarithromycin Other (Please comment) Low 1 "Burning mouth" sensation. documented as of this encounter (statuses as of 10/03/2023) Medications Medication Sig Dispensed Refills Start Date [...] 01/11/2020 Active Additional Information Patient taking differently:2 [place] Each NostrilHS, Indications: allergies, Reported on 08/13/2022 [...] mouth daily. 0 Active GNP Calcium 1200 2304-3592 MG-UNIT Oral Tablet Chewable Take 1 Tablet [...] diabetes, HbA1C goal < 8% ([facility]) TEST 3 X DAILY DX E11.9 100 Strip 5 06/11/2022 Active ProAir HFA 108 (90 Base) MCG/ACT Inhalation Aerosol SolutionIndications: Acute cough,COPD, group A, by GOLD 2017 classification ([facility]) Inhale 2 Puffs by mouth [...] long-term current use of insulin ([facility]),Type 2 diabetes mellitus with peripheral neuropathy ([facility]),Type 2 DM with CKD stage [...] the morning. 100 Tablet 08/04/2023 Active Pen [place] 32G X 4 MMIndications:Type 2 diabetes mellitus [...] than 70,PAD (peripheral artery disease) ([facility]) Take 1 Tablet by mouth in the morning. 100 Tablet 3 09/11/2023 Active Lisinopril 40 MG Oral TabletIndications:HT N, goal below 130/80 Take 1 Tablet by mouth in the morning. 100 Tablet 3 09/11/2023 Active Insulin Glargine Solostar 100 UNIT/ML Subcutaneous Solution Pen-injectorIndicati ons:Type 2 diabetes, HbA1C goal < 8% ([facility]),Type 2 DM with CKD stage 3 and hypertension ([facility]) Inject 30 Units under the skin every evening. 30 mL 2 09/22/2023 Active oxyCODONE-Acetaminop hen 5-325 MG Oral Tablet (Percocet)Indication s:Disc disorder of lumbar region Take 1 Tablet by mouth every 8 hours as needed for Pain, Severe. 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 Type [...] and oxygen 06/08 Overview: with 4 LPM [facility] Last Assessment & Plan: Compliant with BiPAP ADVANCE DIRECTIVE INFORMATION 12/07/2004 Overview: Yes, Patient instructed to provide copy of advance directive for provider to review and to be scanned into Electronic Medical Record Trigeminal neuralgia Mixed rhinitis Irritable bowel syndrome documented as of this encounter (statuses as of 10/03/2023) Resolved Problems Problem Noted Date Diagnosed Date Resolved Date Diabetes mellitus with stage 3 chronic kidney disease 07/15/2022 07/15/2022 Diabetes mellitus 07/15/2022 09/10/2022 Hypertensive heart disease without CHF 01/04/2022 07/15/2022 Open-angle glaucoma 06/14/2021 10/16/19 Atherosclerosis of [place] co ronary artery without angina pectoris 03/26/2021 [...] as of this encounter (statuses as of 10/03/2023) Immunizations Name Administration Dates Next Due COVID-19 mRNA, LNP-s, No Pre serve, 2-Dose Series (sli.do) 05/14/2021,09/21/2020,08/31/2020 COVID-19, LNP-s, No Preserve , Jose-sucrose, Ages 12+ (sli.do) 12/11/2021 COVID-19, MRNA-LNP, 23-24, P F, 30 MCG/0.3 mL, 12 YRS AND ABOVE, IM ([facility]) 04/29/2023 Covid-19, Mrna, Lnp-s, Pf, B [...] encounter Progress Notes * Linsey Cho Health Fourth Mate - 10/03/2023 11:04 AM EDT Did patient attend session 6 of 10 of the small group balance program? No: Patient did not attend session 1 of 10 of the small group balance program. Patient was unable to attend session 6. documented in this encounter Plan of Treatment Upcoming Encounters Date Type Department Care Team (Late st Contact Info) Description 11/07/2023 9:00 AM EDT Procedure Only Endoscopy, [facility] [address] [place] [address] Landon Kline MD [address] [place] [address] 12/03/2023 10:40 AM EDT Office Visit Family Practice [address] [place] [address] 293 [facility] [address] Ferny Sr, 293 [facility] [place] [address] 12/26/2023 11:00 AM EDT [facility] [address] [place] [address] [facility] Cardiology [facility] [address] [place] [address] 02/24/2024 11:00 AM EDT Laboratory Laboratory [facility] [address] [facility], [place] [phone] Trish Salgado [facility] [address] [place], [place] [address] 02/24/2024 12:00 PM EDT Office Visit Hematology/Oncology [facility] [place] [address] [place] [address] Michelle Ruffin CRNP [address] [place] [address] 04/02/2024 10:30 AM EDT Office Visit [facility] [place] [facility] [place] [phone] Mara Archibald CRNP [address] [place] [address] 05/11/2024 11:15 AM EST Office Visit Dermatology [facility] [place] [address] [place] [address] Kingston Huertas MD 200 [facility] [place], [place] [address] Health Maintenance Due Date Last Done Comments [...] Screening 07/29/2024 07/29/2023 CKD HGB USE SMARTSET 86143 09/15/202409/15, 09/16/2023, 08/26/2023, Additional history exists CKD PHOS USE SMARTSET 54605 09/15/202409/04, 08/26/2023, 11/21/2022, Additional history exists O2 ASSESSMENT COMPLETED IN PAST YEAR FOR COPD 09/15/2024 09/16/2023 DXA Scan 08/18/2025 08/18/2023, 03/2022, 10/19/2012, Additional history exists DTaP,Tdap,and Td Vaccines (3 - Td or Tdap) 09/17/2027 09/16/2017, 04/06/2008, 11/06/1995 Pneumococcal Vaccine: 65+ Years Completed 10/14/2014, 04/02/2011, 12/21/2002 Zoster Vaccines Completed 09/15/2019, 10/2018, 06/14/2009 LUNG CANCER SCREENING - USE SMARTSET 97128 Completed 05/16/2021, 02/17/2020, 02/11/2019, Additional history exists COLONOSCOPY-EVERY 5 YRS AGES 18-100 Discontinued 09/04/2022, 02/13/2015, 08/19/2011, Additional history exists Influenza Vaccine (FLU shot) Completed 03/18/2023, 03/13/2022, 03/26/2021, Additional history exists COVID-19 Vaccine Completed 04/29/2023, 02/2022, 12/11/2021, Additional history exists VITAMIN D LEVEL ONCE IN A LIFETIME-USE SMARTSET# 85206 Completed 08/26/2023, 07/15/2022, 03/13/2022, Additional history exists [...] encounter Medical Devices Implanted Type Area Manager Corporate Communications Device Identifier Shelf Expiration Date Model / Serial / Lot Lens Intraoc 18.5 - [id number] - [id number] Implanted:Qty: 1 on 04/03/2021 by Irvin aCnchola MD at OR [facility] Left: Eye BAUSCH & LOMB 01/03/2026 [id number] / [id number] / [id number] Lens Intraoc 18.5 - [id number] - [id number] Implanted:Qty: 1 on 04/10/2021 by Irvin Canchola MD at OR [facility] Right: Eye BAUSCH & LOMB 01/03/2026 [id number] / [id number] / [id number] documented as of this encounter Care Teams Deburr Operator Relationship Specialty Start Date End Date Ferny Sr DO [address] [place] [address] PCP - General Internal Medicine 08/31/18 documented as of this encounter
--- OUTSIDE RECORDS SUMMARY | 2024-01-20 22:03 | External Medical Summary | Summary of Care ---
Author Name Unknown Organization [facility] Address [address] [place] [address] Phone [phone] Care Team Providers Care Supervisor Grain And Yeast Plants Name Role Phone Ferny Sr DO Primary Care Provider [phone] Encounter Details Date Type Department Care Team (Late st Contact Info) Description 10/14/2023 Documentation [facility] WELLNESS Linsey Cho, Health Dairy Feed Worker Allergies Active Allergy Reactions Criticality Noted Date [...] 01/11/2020 Active Additional Information Patient taking differently:2 [place] Each NostrilHS, Indications: allergies, Reported on 08/13/2022 [...] mouth daily. 0 Active GNP Calcium 1200 6706-2995 MG-UNIT Oral Tablet Chewable Take 1 Tablet [...] the morning. 100 Tablet 08/04/2023 Active Pen [place] 32G X 4 MMIndications:Type 2 diabetes mellitus [...] 07/15/2022 Open-angle glaucoma 06/14/2021 10/16/19 Atherosclerosis of [place] co ronary artery without angina pectoris 03/26/2021 [...] mRNA, LNP-s, No Pre serve, 2-Dose Series ([employer]) 05/14/2021,09/21/2020,08/31/2020 COVID-19, LNP-s, No Preserve , Jose-sucrose, Ages 12+ ([employer]) 12/11/2021 COVID-19, MRNA-LNP, 23-24, P F, 30 MCG/0.3 mL, 12 YRS AND ABOVE, IM ([facility]) 04/29/2023 Covid-19, Mrna, Lnp-s, Pf, B [...] encounter Progress Notes * Linsey Cho Health Dairy Feed Worker - 10/14/2023 12:07 PM EDT Did patient attend session 9 of 10 of the small group balance program? Yes: Patient attended session 9 of 10 of the small group balance program. Session 9 focused on a review of fall prevention in the home, lower extremity strengthening and hand eye coordination drills from the previous sessions. Pr acticed exercises as a group. documented in this encounter Plan of Treatment Upcoming Encounters Date Type Department Care Team (Late st Contact Info) Description 11/07/2023 9:00 AM EDT Procedure Only Endoscopy, [facility] [address] [place] [address] Landon Kline MD [address] [place] [address] 12/03/2023 10:40 AM EDT Office Visit Family Practice [address] [place] [address] 293 [place] [address] Ferny Sr, 293 [place] [address] 12/26/2023 11:00 AM EDT [facility] [address] [place] [address] [facility] Cardiology [facility] [address] [place] [address] 02/24/2024 11:00 AM EDT Laboratory Laboratory [facility] [address] [place] [address] Naomi [facility] [address] [facility] [place] [address] 02/24/2024 12:00 PM EDT Office Visit Hematology/Oncology [facility] [place] [address] [place] [phone] Michelle Ruffin CRNP [address] [place] [address] 04/02/2024 10:30 AM EDT Office Visit Sleep Disorders Ctr [facility]i [facility]wang [place] 132 [facility] [place] [phone] Mara Archibald CRNP 132 [facility] [place] [address] 05/11/2024 11:15 AM EST Office Visit Dermatology [facility] [place] 200 [facility] [address] [place], [place] [address] Kingston Huertas MD 200 [facility] [place] [address] Health Maintenance Due Date Last Done Comments [...] Screening 07/29/2024 07/29/2023 CKD HGB USE SMARTSET 38631 09/15/202409/15, 09/16/2023, 08/26/2023, Additional history exists CKD PHOS USE SMARTSET 44598 09/15/202409/04, 08/26/2023, 11/21/2022, Additional history exists O2 ASSESSMENT COMPLETED IN PAST YEAR FOR COPD 09/15/2024 09/16/2023 DXA Scan 08/18/2025 08/18/2023, 03/2022, 10/19/2012, Additional history exists DTaP,Tdap,and Td Vaccines (3 - Td or Tdap) 09/17/2027 09/16/2017, 04/06/2008, 11/06/1995 Pneumococcal Vaccine: 65+ Years Completed 10/14/2014, 04/02/2011, 12/21/2002 Zoster Vaccines Completed 09/15/2019, 10/2018, 06/14/2009 LUNG CANCER SCREENING - USE SMARTSET 69062 Completed 05/16/2021, 02/17/2020, 02/11/2019, Additional history exists COLONOSCOPY-EVERY 5 YRS AGES 18-100 Discontinued 09/04/2022, 02/13/2015, 08/19/2011, Additional history exists Influenza Vaccine (FLU shot) Completed 03/18/2023, 03/13/2022, 03/26/2021, Additional history exists COVID-19 Vaccine Completed 04/29/2023, 02/2022, 12/11/2021, Additional history exists VITAMIN D LEVEL ONCE IN A LIFETIME-USE SMARTSET# 36346 Completed 08/26/2023, 07/15/2022, 03/13/2022, Additional history exists [...] this encounter Medical Devices Implanted Type Area Correctional Lieutenant Device Identifier Shelf Expiration Date Model / Serial / Lot Lens Intraoc 18.5 - [id number] - [id number] Implanted:Qty: 1 on 04/03/2021 by Irvin Canchola MD at OR [facility] Left: Eye BAUSCH & LOMB 01/03/2026 [id number] / [id number] / [id number] Lens Intraoc 18.5 - [id number] - [id number] Implanted:Qty: 1 on 04/10/2021 by Irvin Canchola MD at OR [facility] Right: Eye BAUSCH & LOMB 01/03/2026 [id number] / [id number] / [id number] documented as of this encounter Care Teams Supervisor Grain And Yeast Plants Relationship Specialty Start Date End Date Ferny Sr DO 293 [facility] [place] [address] PCP - General Internal Medicine 08/31/18 documented as of this encounter
--- OUTSIDE RECORDS SUMMARY | 2024-01-20 22:03 | External Medical Summary | Summary of Care ---
Author Name Unknown Organization [facility] Address [address] [place] [address] Phone [phone] Care Team Providers Care Printed Circuit Designer Name Role Phone ElnoamFerny DO Primary Care Provider [phone] Encounter Details Date Type Department Care Team (Late st Contact Info) Description 10/02/2023 Population Health External Data Unspecified Department Allergies Active Allergy Reactions Criticality Noted Date Comments Clarithromycin Other (Please comment) Low 1 "Burning mouth" sensation. documented as of this encounter (statuses as of 10/07/2023) Medications Medication Sig Dispensed Refills Start Date End Date Status HomuorkTOUCH ULTRA SYSTEM W/DEVICE KITIndications:DM type 2, goal [...] 01/11/2020 Active Additional Information Patient taking differently:2 [place] Each NostrilHS, Indications: allergies, Reported on 08/13/2022 [...] mouth daily. 0 Active GNP Calcium 1200 1784-4227 MG-UNIT Oral Tablet Chewable Take 1 Tablet [...] 2 diabetes, HbA1C goal < 8% ([facility]) TEST 3 X DAILY DX E11.9 100 Strip 5 06/11/2022 Active ProAir HFA 108 (90 Base) MCG/ACT Inhalation Aerosol SolutionIndications: Acute cough,COPD, group A, by GOLD 2017 classification ([facility]) Inhale 2 Puffs by [...] without long-term current use of insulin ([facility]),Type 2 diabetes mellitus with peripheral neuropathy ([facility]),Type 2 DM with CKD [...] the morning. 100 Tablet 08/04/2023 Active Pen [place] 32G X 4 MMIndications:Type 2 diabetes mellitus [...] less than 70,PAD (peripheral artery disease) ([facility]) Take 1 Tablet by mouth in the morning. 100 Tablet 3 09/11/2023 Active Lisinopril 40 MG Oral TabletIndications:HT N, goal below 130/80 Take 1 Tablet by mouth in the morning. 100 Tablet 3 09/11/2023 Active Insulin Glargine Solostar 100 UNIT/ML Subcutaneous Solution Pen-injectorIndicati ons:Type 2 diabetes, HbA1C goal < 8% ([facility]),Type 2 DM with CKD stage 3 and hypertension ([facility]) Inject 30 Units under [...] and oxygen 06/08 Overview: with 4 LPM [facility] Last Assessment & Plan: Compliant [...] 07/15/2022 Open-angle glaucoma 06/14/2021 10/16/19 Atherosclerosis of [place] ronary artery without angina pectoris 03/26/2021 [...] mRNA, LNP-s, No Pre serve, 2-Dose Series ([employer]) 05/14/2021,09/21/2020,08/31/2020 COVID-19, LNP-s, No Preserve , Jose-sucrose, Ages 12+ ([employer]) 12/11/2021 COVID-19, MRNA-LNP, 23-24, P F, 30 MCG/0.3 mL, 12 YRS AND ABOVE, [facility] 04/29/2023 Covid-19, Mrna, Lnp-s, [...] Team (Late st Contact Info) Description 10/07/2023 11:00 AM EDT Office Visit Family Practice 65 [facility] 293 [facility], [place] [phone] [place], Health Painting Department Supervisor [facility] Prac 65 [facility] 293 [facility], [place] [address] 11/07/2023 9:00 AM EDT Procedure Only Endoscopy, [facility] [address] [place] [address] Landon Kline MD 132 [facility] [place] [address] 12/03/2023 10:40 AM EDT Office Visit Family Practice 65 [facility] [address] Ferny Sr, 293 [facility], [place] [address] 12/26/2023 11:00 AM EDT [facility] 132 [facility] [place] [address] [facility] Cardiology [facility] [address] [place] [address] 02/24/2024 11:00 AM EDT Laboratory Laboratory Yvette Selden [place] [address] [place] [phone] Trish Salgado [address] [place] [address] 02/24/2024 12:00 PM EDT Office Visit Hematology/Oncology [facility] 200 [facility] [place], [place] [phone] Michelle Ruffin CRNP [address] [place] [address] 04/02/2024 10:30 AM EDT Office Visit Sleep Disorders Ctr Jimi Hwang, [place] [address] [place] [phone] Mara Archibald CRNP [address] [place] [address] 05/11/2024 11:15 AM EST Office Visit Dermatology [facility] [address] [facility] [place] [address] Kingston Huertas MD [address] [facility] [place] [address] Health Maintenance Due Date Last Done Comments [...] Screening 07/29/2024 07/29/2023 CKD HGB USE SMARTSET 08020 09/15/202409/15, 09/16/2023, 08/26/2023, Additional history exists CKD PHOS USE SMARTSET 11547 09/15/202409/04, 08/26/2023, 11/21/2022, Additional history exists O2 ASSESSMENT COMPLETED IN PAST YEAR FOR COPD 09/15/2024 09/16/2023 DXA Scan 08/18/2025 08/18/2023, 03/2022, 10/19/2012, Additional history exists DTaP,Tdap,and Td Vaccines (3 - Td or Tdap) 09/17/2027 09/16/2017, 04/06/2008, 11/06/1995 Pneumococcal Vaccine: 65+ Years Completed 10/14/2014, 04/02/2011, 12/21/2002 Zoster Vaccines Completed 09/15/2019, 10/2018, 06/14/2009 LUNG CANCER SCREENING - USE SMARTSET 38830 Completed 05/16/2021, 02/17/2020, 02/11/2019, Additional history exists COLONOSCOPY-EVERY 5 YRS AGES 18-100 Discontinued 09/04/2022, 02/13/2015, 08/19/2011, Additional history exists Influenza Vaccine (FLU shot) Completed 03/18/2023, 03/13/2022, 03/26/2021, Additional history exists COVID-19 Vaccine Completed 04/29/2023, 02/2022, 12/11/2021, Additional history exists VITAMIN D LEVEL ONCE IN A LIFETIME-USE SMARTSET# 03858 Completed 08/26/2023, 07/15/2022, 03/13/2022, Additional history exists [...] this encounter Medical Devices Implanted Type Area Pet Nutrition Specialist Device Identifier Shelf Expiration Date Model / Serial / Lot Lens Intraoc 18.5 - [id number] - [id number] Implanted:Qty: 1 on 04/03/2021 by Irvin Canchola MD at OR [facility] Left: Eye BAUSCH & LOMB 01/03/2026 [id number] / [id number] / [id number] Lens Intraoc 18.5 - [id number] - [id number] Implanted:Qty: 1 on 04/10/2021 by Irvin Canchola MD at OR [facility] Right: Eye BAUSCH & LOMB 01/03/2026 [id number] / [id number] / [id number] documented as of this encounter Care Teams Printed Circuit Designer Relationship Specialty Start Date End Date Ferny Sr DO [address] [place] [address] PCP - General Internal Medicine 08/31/18 documented as of this encounter
--- OUTSIDE RECORDS SUMMARY | 2024-01-20 22:03 | External Medical Summary | Summary of Care ---
Author Name Unknown Organization [facility] Address [address] [place] [address] Phone [phone] Care Team Providers Care Litigation Specialist Name Role Phone Ferny Sr DO Primary Care Provider [phone] Encounter Details Date Type Department Care Team (Late st Contact Info) Description 09/30/2023 Documentation HEALTH & WELLNESS Linsey Cho, Health Senior Compensation Consultant Allergies Active Allergy Reactions Criticality Noted Date Comments Clarithromycin Other (Please comment) Low 1 "Burning mouth" sensation. documented as of this encounter (statuses as of 10/01/2023) Medications Medication Sig Dispensed Refills Start Date [...] 01/11/2020 Active Additional Information Patient taking differently:2 [place] Each NostrilHS, Indications: allergies, Reported on 08/13/2022 [...] mouth daily. 0 Active GNP Calcium 1200 5460-7449 MG-UNIT Oral Tablet Chewable Take 1 Tablet [...] the morning. 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 Type [...] and oxygen 06/08 Overview: with 4 LPM [facility] Last Assessment & Plan: Compliant with BiP[employer] ADVANCE DIRECTIVE INFORMATION 12/07/2004 Overview: Yes, Patient instructed to provide copy of advance directive for provider to review and to be scanned into Electronic Medical Record Trigeminal neuralgia Mixed rhinitis Irritable bowel syndrome documented as of this encounter (statuses as of 10/01/2023) Resolved Problems Problem Noted Date Diagnosed Date Resolved Date Diabetes mellitus with stage 3 chronic kidney disease 07/15/2022 07/15/2022 Diabetes mellitus 07/15/2022 09/10/2022 Hypertensive heart disease without CHF 01/04/2022 07/15/2022 Open-angle glaucoma 06/14/2021 10/16/19 Atherosclerosis of [place] co ronary artery without angina pectoris 03/26/2021 [...] as of this encounter (statuses as of 10/01/2023) Immunizations Name Administration Dates Next Due COVID-19 mRNA, LNP-s, No Pre serve, 2-Dose Series ([employer]) 05/14/2021,09/21/2020,08/31/2020 COVID-19, LNP-s, No Preserve , Jose-sucrose, Ages 12+ ([employer]) 12/11/2021 COVID-19, MRNA-LNP, 23-24, P F, 30 MCG/0.3 mL, 12 YRS AND ABOVE, IM ([facility] [place]) 04/29/2023 Covid-19, Mrna, Lnp-s, Pf, B ivalent, [...] encounter Progress Notes * Linsey Cho Health Senior Compensation Consultant - 09/30/2023 4:27 PM EDT Did patient attend session 5 [...] Team (Late st Contact Info) Description 10/03/2023 11:00 AM EDT Office Visit Family Practice [address] [place] [address] 293 [place] [phone] [place], Health Senior Compensation Consultant [facility] 65 [facility] 293 [facility] [place] [address] 11/07/2023 9:00 AM EDT Procedure Only Endoscopy, [facility] 132 [place] [address] Landon Kline MD [address] [place] [address] 12/03/2023 10:40 AM EDT Office Visit Family Practice 65 [facility] 293 [place] [address] Ferny Sr DO 293 [facility] [place] [address] 12/26/2023 11:00 AM EDT Office Visit [facility], [facility] [place] [address] Hwang, [facility] Cardiology [facility] [address] [facility] [place] [address] 02/24/2024 11:00 AM EDT Laboratory Laboratory [facility] [place] [address] [place] [phone] Trish Salgado [facility] [address] [facility] [place] [address] 02/24/2024 12:00 PM EDT Office Visit Hematology/Oncology [facility] [place] [address] [place] [phone] Michelle Ruffin CRNP [address] [place] [address] 04/02/2024 10:30 AM EDT Office Visit Sleep Disorders Ctr [facility] 132 [facility] [phone] Mara Archibald CRNP 132 [facility] [address] 05/11/2024 11:15 AM EST Office Visit Dermatology [facility] [address] [place] [address] Kingston Huertas MD 200 [place] [address] Health Maintenance Due Date Last Done Comments [...] Screening 07/29/2024 07/29/2023 CKD HGB USE SMARTSET 26038 09/15/202409/15, 09/16/2023, 08/26/2023, Additional history exists CKD PHOS USE SMARTSET 07167 09/15/202409/04, 08/26/2023, 11/21/2022, Additional history exists O2 ASSESSMENT COMPLETED IN PAST YEAR FOR COPD 09/15/2024 09/16/2023 DXA Scan 08/18/2025 08/18/2023, 020 03/2022, 10/19/2012, Additional history exists DTaP,Tdap,and Td Vaccines (3 - Td or Tdap) 09/17/2027 09/16/2017, 04/06/2008, 11/06/1995 Pneumococcal Vaccine: 65+ Years Completed 10/14/2014, 04/02/2011, 12/21/2002 Zoster Vaccines Completed 09/15/2019, 1110/2018, 06/14/2009 LUNG CANCER SCREENING - USE SMARTSET 48163 Completed 05/16/2021, 02/17/2020, 02/11/2019, Additional history exists COLONOSCOPY-EVERY 5 YRS AGES 18-100 Discontinued 09/04/2022, 02/13/2015, 08/19/2011, Additional history exists Influenza Vaccine (FLU shot) Completed 03/18/2023, 03/13/2022, 03/26/2021, Additional history exists COVID-19 Vaccine Completed 04/29/2023, 02/2022, 12/11/2021, Additional history exists VITAMIN D LEVEL ONCE IN A LIFETIME-USE SMARTSET# 45140 Completed 08/26/2023, 07/15/2022, 03/13/2022, Additional history exists [...] this encounter Medical Devices Implanted Type Area Customs Compliance Director Device Identifier Shelf Expiration Date Model / Serial / Lot Lens Intraoc 18.5 - [id number] - [id number] Implanted:Qty: 1 on 04/03/2021 by Irvin Canchola MD at OR [facility] Left: Eye BAUSCH & LOMB 01/03/2026 [id number] / [id number] / [id number] Lens Intraoc 18.5 - [id number] - [id number] Implanted:Qty: 1 on 04/10/2021 by Irvin Canchola MD at OR [facility] Right: Eye BAUSCH & LOMB 01/03/2026 [id number] / [id number] / [id number] documented as of this encounter Care Teams Litigation Specialist Relationship Specialty Start Date End Date Ferny Sr DO [address] [place] [address] PCP - General Internal Medicine 08/31/18 documented as of this encounter
--- OUTSIDE RECORDS SUMMARY | 2024-01-20 22:04 | External Medical Summary | Summary of Care ---
Author Name Unknown Organization [facility] Address [address] [place] [address] Phone [phone] Care Team Providers Care Electric Motor Repairer Name Role Phone Ferny Sr DO Primary Care Provider [phone] Reason for Visit * Reason Comments Status Check Post fall. Encounter Details Date Type Department Care Team (Late st Contact Info) Description 09/23/2023 11:45 AM EDT Nurse Only Family Practice 65 [facility] [address] [place] [address] College, Nurse [facility] Prac 65 [facility] [address] [place] [address] Status Check (Post fall. ) Allergies Active Allergy Reactions Criticality Noted Date Comments Clarithromycin Other (Please comment) Low 06 1 "Burning mouth" sensation. documented as of this encounter (statuses as of 09/26/2023) Medications Medication Sig Dispensed Refills Start Date End Date Status Valerion TherapeuticsUCH ULTRA SYSTEM W/DEVICE KITIndications:DM type 2, goal [...] 01/11/2020 Active Additional Information Patient taking differently:2 [place] Each NostrilHS, Indications: allergies, Reported on 08/13/2022 [...] mouth daily. 0 Active GNP Calcium 1200 8940-4226 MG-UNIT Oral Tablet Chewable Take 1 Tablet [...] diabetes, HbA1C goal < 8% ([facility]) TEST 3 X DAILY DX E11.9 100 Strip 5 06/11/2022 Active ProAir HFA 108 (90 Base) MCG/ACT Inhalation Aerosol SolutionIndications: Acute cough,COPD, group A, by GOLD 2017 classification ([facility]) Inhale 2 Puffs by mouth in the [...] morning. 100 Tablet 3 08/04/2023 Active Pen [place] 32G X 4 MMIndications:Type 2 diabetes mellitus with peripheral neuropathy ([facility]) Use as directed. Once daily 100 Each [...] CKD stage 3 and hypertension ([facility]) Inject 1 mg under the skin once a week. 9 mL 08/25/2023 Active carBAMazepine ER 400 MG Oral Tablet Extended Release 12 Hour (Tegretol-Xr) Take 1 Tablet by mouth in the morning and 1 Tablet before bedtime. 200 Tablet 08/25/2023 Active Folic Acid 1 MG Oral Tablet Take 1 Tablet by mouth in the morning. 100 Tablet 08/25/2023 Active oxyCODONE-Acetaminop hen 5-325 MG Oral Tablet (Percocet)Indication s:Disc disorder of lumbar region Take 1 Tablet by mouth every 8 hours as needed for Pain, Moderate. 90 Tablet 0 08/26/2023 Active Repatha SureClick 140 MG/ML Subcutaneous Solution [...] diabetes, HbA1C goal < 8% ([facility]),Type 2 DM with CKD stage 3 and hypertension ([facility]) Inject 30 Units under the skin every evening. 30 mL 2 09/22/2023 Active documented as of this encounter (statuses as of 09/26/2023) Active Problems Problem Noted Date Diagnosed Date Osteoporosis without current pathological fractu re 08/27/2023 [facility] current use of aromatase inhibitor Type 2 [...] as of this encounter (statuses as of 09/26/2023) Resolved Problems Problem Noted Date Diagnosed Date Resolved Date Diabetes mellitus with stage 3 chronic kidney disease 07/15/2022 07/15/2022 Diabetes mellitus 07/15/2022 09/10/2022 Hypertensive heart disease without CHF 01/04/2022 07/15/2022 Open-angle glaucoma 06/14/2021 10/16/19 Atherosclerosis of [place] co ronary artery without angina pectoris 03/26/2021 [...] as of this encounter (statuses as of 09/26/2023) Immunizations Name Administration Dates Next Due COVID-19 mRNA, LNP-s, No Pre serve, 2-Dose Series ([employer]) 05/14/2021,09/21/2020,08/31/2020 COVID-19, LNP-s, No Preserve , Jose-sucrose, [...] Sign Reading Time Taken Comments Blood Pressure 138/74 09/23/2023 11:06 AM EDT Pulse 66 09/23/2023 11:06 AM EDT Temperature - - Respiratory Rate - - Oxygen Saturation - - Inhaled Oxygen Concentration - - Weight - - Height - - Body Mass Index - - documented in this encounter Progress Notes * Ferny Sr DO - 09/23/2023 11:13 AM EDT Patient had witnessed mechanical fall in our facility while on her way to balance class today. She landed on her right knee. No LOC, no head trauma. No dizziness. No chest pain or shortness of breath. VSS Right knee: abrasion, no deformity, no effusion documented in this encounter Nursing Notes * Sasha Balderas LPN - 09/23/2023 11:04 AM EDT Fell at entrance while hanging coat on coat rack. 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 States landed on her right knee but now has no pain. Has no pain with movement. Does have slightly tenderness over right knee. S/P knee replacement on right side done 3 years ago. Did not hit head. Fall was < 10 min ago., No open areas, skin is scraped a bit at site. Is fatigued due to lack of sleep and has no energy--per Fatmata documented in this encounter Miscellaneous Notes * Result Encounter Note - Ann-Marie Claudio LPN - 09/25/2023 1:36 PM EDT Spoke to patient - see telephone encounter. documented in this encounter Plan of Treatment Upcoming Encounters Date Type Department Care Team (Late st Contact Info) Description 09/26/2023 11:00 AM EDT Office Visit Family Practice [address] [place] [address] 293 [facility] [place] [phone] [facility] Health Asp Web Developer [address] [place] [address] 11/07/2023 9:00 AM EDT Procedure Only Endoscopy, [place] [facility] [place] [address] Landon Kline MD [facility] [place] [address] 12/03/2023 10:40 AM EDT Office Visit Family [address] 293 [facility], [place] [address] Ferny Sr DO 293 [facility] [address] 12/26/2023 11:00 AM EDT Office Visit Cardiology, [facility] [address] [place] [address] Hwang [facility] Cardiology [facility] 132 [place] [address] 02/24/2024 11:00 AM EDT Laboratory Laboratory [facility] [address] 200 [facility], [place] [phone] Trish Salgado [facility] 200 [facility] [place] [address] 02/24/2024 12:00 PM EDT Office Visit Hematology/Oncology [facility] [address] 200 [facility] [place] [phone] Michelle Ruffin CRNP 400 [facility] [place] [address] 04/02/2024 10:30 AM EDT Office Visit Sleep Disorders Ctr Jimi Hwang [address] [place] [phone] Mara Archibald CRNP [address] [place] [address] 05/11/2024 11:15 AM EST Office Visit Dermatology [facility] [address] 200 [facility] [place] [address] Kingston Huertas MD 200 [facility] [place] [address] Health Maintenance Due Date Last Done Comments [...] Screening 07/29/2024 07/29/2023 CKD HGB USE SMARTSET 65748 09/15/202409/15, 09/16/2023, 08/26/2023, Additional history exists CKD PHOS USE SMARTSET 52091 09/15/202409/04, 08/26/2023, 11/21/2022, Additional history exists O2 ASSESSMENT COMPLETED IN PAST YEAR FOR COPD 09/15/2024 09/16/2023 DXA Scan 08/18/2025 08/18/2023, 03/2022, 10/19/2012, Additional history exists DTaP,Tdap,and Td Vaccines (3 - Td or Tdap) 09/17/2027 09/16/2017, 04/06/2008, 11/06/1995 Pneumococcal Vaccine: 65+ Years Completed 10/14/2014, 04/02/2011, 12/21/2002 Zoster Vaccines Completed 09/15/2019, 10/2018, 06/14/2009 LUNG CANCER SCREENING - USE SMARTSET 81949 Completed 05/16/2021, 02/17/2020, 02/11/2019, Additional history exists COLONOSCOPY-EVERY 5 YRS AGES 18-100 Discontinued 09/04/2022, 02/13/2015, 08/19/2011, Additional history exists Influenza Vaccine (FLU shot) Completed 03/18/2023, 03/13/2022, 03/26/2021, Additional history exists COVID-19 Vaccine Completed 04/29/2023, 02/2022, 12/11/2021, Additional history exists VITAMIN D LEVEL ONCE IN A LIFETIME-USE SMARTSET# 11644 Completed 08/26/2023, 07/15/2022, 03/13/2022, Additional history exists [...] this encounter Medical Devices Implanted Type Area Jury Consultant Device Identifier Shelf Expiration Date Model / Serial / Lot Lens Intraoc 18.5 - [id number] - [id number] Implanted:Qty: 1 on 04/03/2021 by Irvin Canchola MD at OR [facility] Left: Eye [employer]CH [employer]OM[employer] 01/03/2026 [id number] / [id number] / [id number] Lens Intraoc 18.5 - [id number] - [id number] Implanted:Qty: 1 on 04/10/2021 by Irvin Canchola MD at OR [facility] Right: Eye [employer]OM[employer] 01/03/2026 [id number] / [id number] documented as of this encounter Procedures Procedure Name Priority Date/Time Associated Diagnosis Comments XR KNEE 4 OR MORE VIEWS Routine 09/23/2023 11:30 AM EDT Acute pain of right knee documented in this encounter Results * XR KNEE 4 OR MORE VIEWS (09/23/2023 11:30 AM EDT) Anatomical Region Laterality Modality Knee, Lower Extremity Digital Ra diography 09/25/2023 11:5 2 AM EDT Impressions 09/25/2023 11:49 AM EDT IMPRESSION Right total knee arthroplasty, no hardware complication. Narrative 09/25/2023 11:49 AM EDT EXAM XR KNEE 4 OR MORE VIEWS-09/23/2023 11:30 am HISTORY Fall , knee trauma TECHNIQUE Four views of the RT knee COMPARISON 09/03/2018. FINDINGS Right total knee arthroplasty, hardware is intact, in near anatomic alignment, without jose-hardware lucency or new fracture. Trace effusion. No focal soft tissue swelling. Vascular calcifications. Procedure Note Gwyn Sousa MD - 09/25/2023 EXAM XR KNEE 4 OR MORE VIEWS-09/23/2023 11:30 am HISTORY Fall , knee trauma TECHNIQUE Four views of the RT knee COMPARISON 09/03/2018. FINDINGS Right total knee arthroplasty, hardware is intact, in near anatomicalignment, without jose-hardware lucency or new fracture. Trace effusion.No focal soft tissue swelling. Vascular calcifications. IMPRESSION IMPRESSION Right total knee arthroplasty, no hardware complication. Ferny Sr DO RADIOLOGY (RAD GENER AL) documented in this encounter Visit Diagnoses Diagnosis Acute pain of right knee- Primary documented in this encounter Care Teams Electric Motor Repairer Relationship Specialty Start Date End Date Ferny Sr DO [address] [place] [address] PCP - General Internal Medicine 08/31/18 documented as of this encounter
--- OUTSIDE RECORDS SUMMARY | 2024-01-20 22:04 | External Medical Summary | Summary of Care ---
Author Name Unknown Organization [facility] Address [address] [place] [address] Phone [phone] Care Team Providers Care Fire Loss Prevention Engineer Name Role Phone Ferny Sr DO Primary Care Provider [phone] Reason for Visit * Reason Onset Date Comments Encounter Created in Error 09/25/2023 Encounter Details Date Type Department Care Team (Late st Contact Info) Description 09/25/2023 Telephone Family Practice [address] [facility] [place] [address] [place] [address] Ferny Sr DO [address] [place] [address] Encounter Created in Error Allergies Active Allergy Reactions Criticality Noted Date Comments Clarithromycin Other (Please comment) Low 1 "Burning mouth" sensation. documented as of this encounter (statuses as of 09/25/2023) Medications Medication Sig Dispensed Refills Start Date End Date Status [employer] Systems[employer]CH ULTRA SYSTEM W/DEVICE KITIndications:DM type 2, [...] 01/11/2020 Active Additional Information Patient taking differently:2 [place] Each NostrilHS, Indications: allergies, Reported on 08/13/2022 [...] mouth daily. 0 Active GNP Calcium 1200 6079-5827 MG-UNIT Oral Tablet Chewable Take 1 Tablet [...] pe 2 diabetes, HbA1C goal < 8% ([facility] [...] morning. 100 Tablet 3 08/04/2023 Active Pen [place] 32G X 4 MMIndications:Type 2 diabetes mellitus [...] ons:Type 2 diabetes, HbA1C goal < 8% ([facility]),Type 2 DM with CKD stage 3 and hypertension (HCC) Inject 30 Units under the skin every evening. 30 mL 2 09/22/2023 Active documented as of this encounter (statuses as of 09/25/2023) Active Problems Problem Noted Date Diagnosed Date [...] as of this encounter (statuses as of 09/25/2023) Resolved Problems Problem Noted Date Diagnosed Date Resolved Date Diabetes mellitus with stage 3 chronic kidney disease 07/15/2022 07/15/2022 Diabetes mellitus 07/15/2022 09/10/2022 Hypertensive heart disease without CHF 01/04/2022 07/15/2022 Open-angle glaucoma 06/14/2021 10/16/19 Atherosclerosis of [place] co ronary artery without angina pectoris 03/26/2021 [...] as of this encounter (statuses as of 09/25/2023) Immunizations Name Administration Dates Next Due COVID-19 mRNA, LNP-s, No Pre serve, 2-Dose Series ([employer]) 05/14/2021,09/21/2020,08/31/2020 COVID-19, LNP-s, No Preserve , Jose-sucrose, [...] 11:00 AM EDT Office Visit Family Practice [address] [place] [address] 293 [place] [address] [place], Health Security Site Supervisor [address] [place] [address] 11/07/2023 9:00 AM EDT Procedure Only Endoscopy, [place] [facility] [place] [address] Landon Kline MD [facility] [place] [address] 12/03/2023 10:40 AM EDT Office Visit Family Practice [address] [place] [address] [address] [facility], [place] [address] Ferny Sr DO 293 [place] [address] 12/26/2023 11:00 AM EDT Office Visit Cardiology, [facility] [address] [place] [address] [facility] Cardiology [facility] [address] [place] [address] 02/24/2024 11:00 AM EDT Laboratory Laboratory [facility] [address] [place] [phone] Trish Salgado [facility] [address] [place] [address] 02/24/2024 12:00 PM EDT Office Visit Hematology/Oncology [facility] [place] [address] [place] [phone] Michelle Ruffin CRNP 400 [facility] [place] [address] 04/02/2024 10:30 AM EDT Office Visit [facility] 132 [facility] [place] [phone] Mara Archibald CRNP 132 [facility] [place] [address] 05/11/2024 11:15 AM EST Office Visit Dermatology [facility] [place] 200 [facility] [place] [address] Kingston Huertas MD 200 [facility] [place] [address] Health Maintenance Due Date Last Done Comments [...] Screening 07/29/2024 07/29/2023 CKD HGB USE SMARTSET 47189 09/15/202409/15, 09/16/2023, 08/26/2023, Additional history exists CKD PHOS USE SMARTSET 65373 09/15/202409/04, 08/26/2023, 11/21/2022, Additional history exists O2 ASSESSMENT COMPLETED IN PAST YEAR FOR COPD 09/15/2024 09/16/2023 DXA Scan 08/18/2025 08/18/2023, 03/2022, 10/19/2012, Additional history exists DTaP,Tdap,and Td Vaccines (3 - Td or Tdap) 09/17/2027 09/16/2017, 04/06/2008, 11/06/1995 Pneumococcal Vaccine: 65+ Years Completed 10/14/2014, 04/02/2011, 12/21/2002 Zoster Vaccines Completed 09/15/2019, 10/2018, 06/14/2009 LUNG CANCER SCREENING - USE SMARTSET 86324 Completed 05/16/2021, 02/17/2020, 02/11/2019, Additional history exists COLONOSCOPY-EVERY 5 YRS AGES 18-100 Discontinued 09/04/2022, 02/13/2015, 08/19/2011, Additional history exists Influenza Vaccine (FLU shot) Completed 03/18/2023, 03/13/2022, 03/26/2021, Additional history exists COVID-19 Vaccine Completed 04/29/2023, 02/2022, 12/11/2021, Additional history exists VITAMIN D LEVEL ONCE IN A LIFETIME-USE SMARTSET# [id number] Completed 08/26/2023, 07/15/2022, 03/13/2022, Additional history exists [...] this encounter Medical Devices Implanted Type Area Regulator Pin Inserter Device Identifier Shelf Expiration Date Model / Serial / Lot Lens Intraoc 18.5 - [id number] - [id number] Implanted:Qty: 1 on 04/03/2021 by Irvin Canchola MD at OR [facility] Left: Eye BAUSCH & LOMB 01/03/2026 [id number] / [id number] / [id number] Lens Intraoc 18.5 - [id number] - [id number] Implanted:Qty: 1 on 04/10/2021 by Irvin Canchola MD at OR [facility] Right: Eye BAUSCH & LOMB 01/03/2026 [id number] / [id number] / [id number] documented as of this encounter Care Teams Fire Loss Prevention Engineer Relationship Specialty Start Date End Date Ferny Sr DO [address] [place] [address] PCP - General Internal Medicine 08/31/18 documented as of this encounter
--- OUTSIDE RECORDS SUMMARY | 2024-01-20 22:04 | External Medical Summary | Summary of Care ---
Author Name Unknown Organization [facility] Address [address] [place] [address] Phone [phone] Care Team Providers Care Cena Name Role Phone Ferny Sr DO Primary Care Provider [phone] Reason for Visit * Reason Onset Date Comments Test Results 09/25/202309/24 Encounter Details Date Type Department Care Team (Late st Contact Info) Description 09/25/2023 Telephone Family Practice [address], [place] [address] [place] [address] Ferny Sr DO 293 [place] [address] Test Results (09/24) Allergies Active Allergy Reactions Criticality Noted Date Comments Clarithromycin Other (Please comment) Low 06 1 "Burning mouth" sensation. documented as of this encounter (statuses as of 09/25/2023) Medications Medication Sig Dispensed Refills Start Date End Date Status [employer] R[employer] HoldingsUCH ULTRA SYSTEM W/DEVICE KITIndications:DM type 2, goal [...] 01/11/2020 Active Additional Information Patient taking differently:2 [place] Each NostrilHS, Indications: allergies, Reported on 08/13/2022 [...] mouth daily. 0 Active GNP Calcium 1200 7124-5384 MG-UNIT Oral Tablet Chewable Take 1 Tablet [...] morning. 100 Tablet 3 08/04/2023 Active Pen [place] 32G X 4 MMIndications:Type 2 diabetes mellitus with peripheral neuropathy ([facility]) Use as directed. Once daily [...] CKD stage 3 and hypertension ([facility]) Inject 1 mg under the [...] diabetes, HbA1C goal < 8% ([facility]),Type 2 DM with CKD stage 3 and hypertension (HCC) Inject 30 Units under the skin every evening. 30 mL 2 09/22/2023 Active documented as of this encounter (statuses as of 09/25/2023) Active Problems Problem Noted Date Diagnosed Date Osteoporosis without current pathological fractu re 08/27/2023 halfway current use of aromatase inhibitor Type 2 [...] and oxygen 06/08 Overview: with 4 LPM [employer] Last Assessment & Plan: Compliant with BiPAP [...] 07/15/2022 Open-angle glaucoma 06/14/2021 10/16/19 Atherosclerosis of [place] [...] mRNA, LNP-s, No Pre serve, 2-Dose Series ([employer]) 05/14/2021,09/21/2020,08/31/2020 COVID-19, LNP-s, No Preserve , Jose-sucrose, [...] encounter Miscellaneous Notes * Telephone Encounter - Ann-Marie Claudio LPN - 09/25/2023 1:35 PM EDT Call placed to patient and relayed information from Dr. Sr. Pt acknowledged understanding. No questions at this time. * Telephone Encounter - Ann-Marie Claudio LPN - 09/25/2023 1:33 PM EDT ----- Message from Ferny Sr DO sent at 09/25/2023 11:58 AM EDT ----- Right knee hardware in place. No fracture documented in this encounter Plan of Treatment Upcoming Encounters Date Type Department Care Team (Late st Contact Info) Description 09/26/2023 11:00 AM EDT Office Visit Family Practice [facility] 293 [facility] [phone] College, Health Philatelic Consultant [facility] Prac 65 [facility] 293 [place] [address] 11/07/2023 9:00 AM EDT Procedure Only Endoscopy, [address] [place] 132 [facility] [place] [address] Landon Kline MD 132 [facility] [place] [address] 12/03/2023 10:40 AM EDT Office Visit Family Practice [address] [place] [address] 293 [facility] [place] [address] Ferny Sr, 293 [place] [address] 12/26/2023 11:00 AM EDT Office Visit Cardiology, [facility] 132 [facility] [place] [address] Jaiden [facility] Cardiology [facility] 132 [facility] [place] [address] 02/24/2024 11:00 AM EDT Laboratory Laboratory [facility] [address] [place] [phone] [place], [place] [address] [address] [place] [address] 02/24/2024 12:00 PM EDT Office Visit Hematology/Oncology [facility] [address] [place] [phone] Michelle Ruffin CRNP [address] [place], [place] [address] [address] 04/02/2024 10:30 AM EDT Office Visit [facility] Disorders Ctr [facility] 132 [facility] [place] [phone] Mara Archibald CRNP 132 [facility] [place] [address] 05/11/2024 11:15 AM EST Office Visit Dermatology [facility] [address] [place] [address] Kingston Huertas MD 200 [facility] [place], [place] [address] Health Maintenance Due Date Last Done Comments [...] Screening 07/29/2024 07/29/2023 CKD HGB USE SMARTSET 77932 09/15/202409/15, 09/16/2023, 08/26/2023, Additional history exists CKD PHOS USE SMARTSET 52099 09/15/202409/04, 08/26/2023, 11/21/2022, Additional history exists O2 ASSESSMENT COMPLETED IN PAST YEAR FOR COPD 09/15/2024 09/16/2023 DXA Scan 08/18/2025 08/18/2023, 02/0 03/2022, 10/19/2012, Additional history exists DTaP,Tdap,and Td Vaccines (3 - Td or Tdap) 09/17/2027 09/16/2017, 04/06/2008, 11/06/1995 Pneumococcal Vaccine: 65+ Years Completed 10/14/2014, 04/02/2011, 12/21/2002 Zoster Vaccines Completed 09/15/2019, 11/10/2018, 06/14/2009 LUNG CANCER SCREENING - USE SMARTSET 71710 Completed 05/16/2021, 02/17/2020, 02/11/2019, Additional history exists COLONOSCOPY-EVERY 5 YRS AGES 18-100 Discontinued 09/04/2022, 02/13/2015, 08/19/2011, Additional history exists Influenza Vaccine (FLU shot) Completed 03/18/2023, 03/13/2022, 03/26/2021, Additional history exists COVID-19 Vaccine Completed 04/29/2023, 02/2022, 12/11/2021, Additional history exists VITAMIN D LEVEL ONCE IN A LIFETIME-USE SMARTSET# 13296 Completed 08/26/2023, 07/15/2022, 03/13/2022, Additional history exists [...] this encounter Medical Devices Implanted Type Area Blower Installer Device Identifier Shelf Expiration Date Model / Serial / Lot Lens Intraoc 18.5 - [id number] - [id number] Implanted:Qty: 1 on 04/03/2021 by Irvin Canchola MD at OR [facility] Left: Eye BAUSCH & LOMB 01/03/2026 [id number] / [id number] / [id number] Lens Intraoc 18.5 - [id number] - [id number] Implanted:Qty: 1 on 04/10/2021 by Irvin Canchola MD at OR [facility] Right: Eye BAUSCH & LOMB 01/03/2026 [id number] / [id number] / [id number] documented as of this encounter Care Teams Cena Relationship Specialty Start Date End Date Ferny Sr DO 293 [place] [address] PCP - General Internal Medicine 08/31/18 documented as of this encounter
--- OUTSIDE RECORDS SUMMARY | 2024-01-20 22:04 | External Medical Summary | Summary of Care ---
Author Name Unknown Organization [facility] Address [address] [place] [address] Phone [phone] Care Team Providers Care Sports Physiologist Name Role Phone Ferny Sr DO Primary Care Provider [phone] Reason for Visit * Reason Onset Date Comments Information 09/24/202309/25 Encounter Details Date Type Department Care Team (Late st Contact Info) Description 09/24/2023 10:00 AM EDT Scheduled Telephone Family Practice [address], [place] [address] [place] [address] College, Nurse [facility] [address] [facility] 293 [place] [address] Allergies Active Allergy Reactions Criticality Noted Date Comments Clarithromycin Other (Please comment) Low 06 1 "Burning mouth" sensation. documented as of this encounter (statuses as of 09/26/2023) Medications Medication Sig Dispensed Refills Start Date End Date Status [employer] TechnologyUCH ULTRA SYSTEM W/DEVICE KITIndications:DM type 2, goal [...] 01/11/2020 Active Additional Information Patient taking differently:2 [place] Each NostrilHS, Indications: allergies, Reported on [...] mouth daily. 0 Active GNP Calcium 1200 1271-1771 MG-UNIT Oral Tablet Chewable Take 1 Tablet [...] morning. 100 Tablet 3 08/04/2023 Active Pen [place] 32G X 4 MMIndications:Type 2 diabetes mellitus with peripheral neuropathy ([facility]) Use as directed. Once daily [...] 07/15/2022 Open-angle glaucoma 06/14/2021 10/16/19 Atherosclerosis of [place] co ronary artery without angina pectoris 03/26/2021 [...] mRNA, LNP-s, No Pre serve, 2-Dose Series ([employer]) 05/14/2021,09/21/2020,08/31/2020 COVID-19, LNP-s, No Preserve , Jose-sucrose, [...] Telephone Encounter - Sasha Balderas LPN - 09/26/2023 3:33 PM EDT Fatmata called back, does have some soreness in her back from fall. Is ambulating without difficulty. Feels like a "stretch" is using some heat. This is helpful. Patient is concerned about cost of repatha, spoke to pharmacy. * Telephone Encounter - Sasha Balderas LPN - 09/26/2023 3:04 PM EDT Called patient, left message for patient to return call. Left message stating email was sent. documented in this encounter Plan of Treatment Upcoming Encounters Date Type Department Care Team (Late st Contact Info) Description 11/07/2023 9:00 AM EDT Procedure Only Endoscopy, [place] 132 [place] [address] Landon Kline MD 132 [place] [address] 12/03/2023 10:40 AM EDT Office Visit Family Practice [address] [place] [address], [place] 293 [facility], [place] [address] Ferny Sr DO 293 [facility], [place] [address] 12/26/2023 11:00 AM EDT Office Visit Cardiology, [facility] 132 [facility] [place] [address] [facility] Cardiology [facility] 132 [facility] [place] [address] 02/24/2024 11:00 AM EDT Laboratory Laboratory [facility] 200 [facility] [place] [phone] Naomi [facility] [address] [place] [address] 02/24/2024 12:00 PM EDT Office Visit Hematology/Oncology [facility] [place] [address] [place] [phone] Michelle Ruffin CRNP 400 [facility] [place] [address] 04/02/2024 10:30 AM EDT Office Visit [facility] Disorders Ctr [facility] 132 [facility] [place] [phone] Mara Archibald CRNP 132 [facility] [place] [address] 05/11/2024 11:15 AM EST Office Visit Dermatology [facility] [place] [address] [place] [address] Kingston Huertas MD 200 [facility] [place] [address] Health Maintenance Due Date Last Done Comments [...] Screening 07/29/2024 07/29/2023 CKD HGB USE SMARTSET 68562 09/15/202409/15, 09/16/2023, 08/26/2023, Additional history exists CKD PHOS USE SMARTSET 75050 09/15/202409/04, 08/26/2023, 11/21/2022, Additional history exists O2 ASSESSMENT COMPLETED IN PAST YEAR FOR COPD 09/15/2024 09/16/2023 DXA Scan 08/18/2025 08/18/2023, 03/2022, 10/19/2012, Additional history exists DTaP,Tdap,and Td Vaccines (3 - Td or Tdap) 09/17/2027 09/16/2017, 04/06/2008, 11/06/1995 Pneumococcal Vaccine: 65+ Years Completed 10/14/2014, 04/02/2011, 12/21/2002 Zoster Vaccines Completed 09/15/2019, 10/2018, 06/14/2009 LUNG CANCER SCREENING - USE SMARTSET 74753 Completed 05/16/2021, 02/17/2020, 02/11/2019, Additional history exists COLONOSCOPY-EVERY 5 YRS AGES 18-100 Discontinued 09/04/2022, 02/13/2015, 08/19/2011, Additional history exists Influenza Vaccine (FLU shot) Completed 03/18/2023, 03/13/2022, 03/26/2021, Additional history exists COVID-19 Vaccine Completed 04/29/2023, 02/2022, 12/11/2021, Additional history exists VITAMIN D LEVEL ONCE IN A LIFETIME-USE SMARTSET# 36420 Completed 08/26/2023, 07/15/2022, 03/13/2022, Additional history exists [...] this encounter Medical Devices Implanted Type Area Jazz Singer Device Identifier Shelf Expiration Date Model / Serial / Lot Lens Intraoc 18.5 - [id number] - [id number] Implanted:Qty: 1 on 04/03/2021 by Irvin Canchola MD at OR [facility] Left: Eye BAUSCH & LOMB 01/03/2026 [id number] / [id number] / [id number] Lens Intraoc 18.5 - [id number] - [id number] Implanted:Qty: 1 on 04/10/2021 by Irvin Canchola MD at OR [facility] Right: Eye BAUSCH & LOMB 01/03/2026 [id number] / [id number] / [id number] documented as of this encounter Care Teams Sports Physiologist Relationship Specialty Start Date End Date Ferny Sr DO 293 [place] [address] PCP - General Internal Medicine 08/31/18 documented as of this encounter
--- OUTSIDE RECORDS SUMMARY | 2024-01-20 22:04 | External Medical Summary | Summary of Care ---
Author Name Unknown Organization [facility] Address [address] [place] [address] Phone [phone] Care Team Providers Care Film Vault Supervisor Name Role Phone Disha Sr DO Primary Care Provider [phone] Encounter Details Date Type Department Care Team (Late st Contact Info) Description 09/22/2023 Refill Family Practice [address], [place] [address] [place] [address] Disha Sr DO [address] [place] [address] Type 2 diabetes, HbA1C goal < 8% ([facility]); Type 2 DM with CKD stage 3 and hypertension ([facility]) Allergies Active Allergy Reactions Criticality Noted Date Comments Clarithromycin Other (Please comment) Low 1 "Burning mouth" sensation. documented as of this encounter (statuses as of 09/22/2023) Medications Medication Sig Dispensed Refills Start Date End Date Status PreDx CorpTOUCH ULTRA SYSTEM W/DEVICE KITIndications:DM type 2, goal [...] 0 Active Additional Information Patient taking differently:2 [place] Each NostrilHS, Indications: allergies, Reported on 08/13/2022 [...] mouth daily. 0 Active GNP Calcium 1200 2022-9326 MG-UNIT Oral Tablet Chewable Take 1 Tablet [...] ype 2 diabetes, HbA1C goal < 8% ([facility] [...] morning. 100 Tablet 3 4 Active Pen [place] 32G X 4 MMIndications:Type 2 diabetes mellitus [...] the morning. 100 Tablet 3 4 Active oxyCODONE-Acetamino phen 5-325 MG Oral Tablet (Percocet)Indicatio ns:Disc disorder of lumbar region Take 1 Tablet by mouth every 8 hours as needed for Pain, Moderate. 90 Tablet 0 4 Active Repatha SureClick 140 MG/ML Subcutaneous [...] ions:Type 2 diabetes, HbA1C goal < 8% ([facility]),Type 2 DM with CKD stage 3 and hypertension ([facility]) Inject 30 Units under the skin every evening. 30 mL 2 4 Active Insulin Glargine Solostar 100 UNIT/ML Subcutaneous Solution Pen-injectorIndicat ions:Type 2 diabetes, HbA1C goal < 8% ([facility]),Type 2 DM with CKD stage 3 and hypertension ([facility]) Inject 30 Units under the skin every evening. 15 mL 3 3 09/22/19 24 Discontinu ed(Refill) documented as of this encounter (statuses as of 09/22/2023) Active Problems Problem Noted Date Diagnosed Date Osteoporosis without current pathological fractu re 08/27/2023 alf current use of aromatase inhibitor Type 2 [...] as of this encounter (statuses as of 09/22/2023) Resolved Problems Problem Noted Date Diagnosed Date Resolved Date Diabetes mellitus with stage 3 chronic kidney disease 07/15/2022 07/15/2022 Diabetes mellitus 07/15/2022 09/10/2022 Hypertensive heart disease without CHF 01/04/2022 07/15/2022 Open-angle glaucoma 06/14/2021 10/16/19 22 Atherosclerosis of [place] co ronary artery without angina pectoris 03/26/2021 [...] as of this encounter (statuses as of 09/22/2023) Immunizations Name Administration Dates Next Due COVID-19 mRNA, LNP-s, No Pre serve, 2-Dose Series (Three Rings) 05/14/2021,09/21/2020,08/31/2020 COVID-19, LNP-s, No Preserve , Jose-sucrose, Ages 12+ (Pfizer) 12/11/2021 COVID-19, MRNA-LNP, 23-24, P F, 30 MCG/0.3 mL, 12 YRS AND ABOVE, IM ([facility]) 04/29/2023 Covid-19, Mrna, Lnp-s, Pf, B ivalent, 30 Mcg, IM, 12 yrs and above (Three Rings) 05/14/2022 Pneumococcal Conjugate Vacc, 13 Valent (Prevnar) [...] Telephone Encounter - Elizabeth Topete RPh - 09/22/2023 1:44 PM EDTSigned Prescriptions: Disp Refills Insulin Glargine Solostar 100 UNIT/ML Subc*30 mL 2 Sig: Inject 30 Units under the skin every evening.Authorizing Provider: DISHA SR User: ELIZABETH TOPETE * Telephone Encounter - Elizabeth Topete RPh - 09/22/2023 1:38 PM EDT Rx signed per protocol. Elizabeth Cui, Pharm D, BCACP Clinical Pharmacist [address] [place] [address] - Medication Therapy [facility] 09/22/2023, 1:38 PM Ph. [phone] * Telephone Encounter - Sasha Balderas LPN - 09/22/2023 1:34 PM EDT Please sign pended order. Thank you * Telephone Encounter - Monse Chen OSA - 09/22/2023 1:23 PM EDT Pts requesting a refill of Lantus Solostar 100 units Adarsh states patient is on her last pen and is asking this to be sent MYLA to mail order, possibly overnighted if not able to be here in three days. Adarsh and patient can be reached at [phone] with any questions or concerns documented in this encounter Plan of Treatment Upcoming Encounters Date Type Department Care Team (Late st Contact Info) Description 09/23/2023 11:00 AM EDT Office Visit Family Practice [address] [place] [address] 293 [place] [address] [place], Health [employer] Prac [address] [place] [address] 09/26/2023 11:00 AM EDT Office Visit Family Practice [address] [place] [address] 293 [place] [phone] [place], [facility] [employer] Prac [address] [place] [address] 11/07/2023 9:00 AM EDT Procedure Only Endoscopy, [facility] 132 [facility] [place] [address] Landon Kline MD 132 [facility] [place] [address] 12/03/2023 10:40 AM EDT Office Visit Family Practice [address] [place] [address] 293 [place] [address] Disha Sr, 293 [place] [address] 12/26/2023 11:00 AM EDT Office Visit Cardiology, [facility] 132 [place] [address] [facility] Cardiology [facility] 132 [facility] [address] 02/24/2024 11:00 AM EDT Laboratory Laboratory [facility] [address] [place] [phone] Naomi, [place] [address] Yvette [address] [place] [address] 02/24/2024 12:00 PM EDT Office Visit Hematology/Oncology [facility] [address] [place] [phone] Michelle Ruffin CRNP [address] [place] [address] 04/02/2024 10:30 AM EDT Office Visit [facility] 132 [facility] [phone] Mara Archibald CRNP 132 [facility] [place] [address] 05/11/2024 11:15 AM EST Office Visit Dermatology [facility] [address] [place] [address] Kingston Huertas MD [address] [place] [address], [place] [address] Health Maintenance Due Date Last Done Comments [...] Screening 07/29/2024 07/29/2023 CKD HGB USE SMARTSET 69427 09/15/202409/15, 09/16/2023, 08/26/2023, Additional history exists CKD PHOS USE SMARTSET 70387 09/15/202409/04, 08/26/2023, 11/21/2022, Additional history exists O2 ASSESSMENT COMPLETED IN PAST YEAR FOR COPD 09/15/2024 09/16/2023 DXA Scan 08/18/2025 08/18/2023, 03/2022, 10/19/2012, Additional history exists DTaP,Tdap,and Td Vaccines (3 - Td or Tdap) 09/17/2027 09/16/2017, 04/06/2008, 11/06/1995 Pneumococcal Vaccine: 65+ Years Completed 10/14/2014, 04/02/2011, 12/21/2002 Zoster Vaccines Completed 09/15/2019, 10/2018, 06/14/2009 LUNG CANCER SCREENING - USE SMARTSET 59016 Completed 05/16/2021, 02/17/2020, 02/11/2019, Additional history exists COLONOSCOPY-EVERY 5 YRS AGES 18-100 Discontinued 09/04/2022, 02/13/2015, 08/19/2011, Additional history exists Influenza Vaccine (FLU shot) Completed 03/18/2023, 03/13/2022, 03/26/2021, Additional history exists COVID-19 Vaccine Completed 04/29/2023, 02/2022, 12/11/2021, Additional history exists VITAMIN D LEVEL ONCE IN A LIFETIME-USE SMARTSET# 73346 Completed 08/26/2023, 07/15/2022, 03/13/2022, Additional history exists [...] this encounter Medical Devices Implanted Type Area Industrial Sociologist Device Identifier Shelf Expiration Date Model / Serial / Lot Lens Intraoc 18.5 - [id number] - [id number] Implanted:Qty: 1 on 04/03/2021 by Irvin Canchola MD at OR [facility] Left: Eye BAUSCH & LOMB 01/03/2026 [id number] / [id number] / [id number] Lens Intraoc 18.5 - [id number] - [id number] Implanted:Qty: 1 on 04/10/2021 by Irvin Canchola MD at OR [facility] Right: Eye BAUSCH & LOMB 01/03/2026 [id number] / [id number] / [id number] documented as of this encounter Visit Diagnoses Diagnosis Type 2 diabetes, HbA1C goal < 8% (HCC) Type II or unspecified type diabetes mellitus without mention of complication, not stated as uncontrolled Type 2 DM with CKD stage 3 and hypertension (HCC) documented in this encounter Care Teams Film Vault Supervisor Relationship Specialty Start Date End Date Disha Sr DO [address] [place] [address] PCP - General Internal Medicine 08/31/18 documented as of this encounter
--- OUTSIDE RECORDS SUMMARY | 2024-01-20 22:04 | External Medical Summary | Summary of Care ---
Author Name Unknown Organization [facility] Address [address] [place] [address] Phone [phone] Care Team Providers Care Operations Expert Name Role Phone Ferny Sr DO Primary Care Provider [phone] Reason for Visit * Reason Onset Date Comments Medication Refill 09/24/2023 Encounter Details Date Type Department Care Team (Late st Contact Info) Description 09/24/2023 Refill Family Practice [address], [place] [address] [place] [address] Ferny Sr DO [address] [place] [address] Allergies Active Allergy Reactions Criticality Noted Date Comments Clarithromycin Other (Please comment) Low 1 "Burning mouth" sensation. documented as of this encounter (statuses as of 09/25/2023) Medications Medication Sig Dispensed Refills Start Date End Date Status TripConnect ULTRA SYSTEM W/DEVICE KITIndications:DM type 2, goal [...] 01/11/2020 Active Additional Information Patient taking differently:2 [place] Each NostrilHS, Indications: allergies, Reported on 08/13/2022 [...] mouth daily. 0 Active GNP Calcium 1200 4526-0930 MG-UNIT Oral Tablet Chewable Take 1 Tablet [...] morning. 100 Tablet 3 08/04/2023 Active Pen [place] 32G X 4 MMIndications:Type 2 diabetes mellitus with peripheral neuropathy ([facility]) Use as directed. Once daily 100 [...] hypertension ([facility]) Inject 1 mg under the skin [...] 07/15/2022 Open-angle glaucoma 06/14/2021 10/16/19 Atherosclerosis of [place] co ronary artery without angina pectoris 03/26/2021 [...] mRNA, LNP-s, No Pre serve, 2-Dose Series (Vital Sensors) 05/14/2021,09/21/2020,08/31/2020 COVID-19, LNP-s, No Preserve , Jose-sucrose, [...] Telephone Encounter - Betty Topete RPh - 09/24/2023 11:05 AM EDT Patient's requesting refill for carbamazepine - appears to be active at mail order. Will have them send it in. Betty Cui, Pharm D, BCACP Clinical Pharmacist 65 [facility] - Medication Therapy Disease Management [facility] 09/24/2023, 11:06 AM Ph. [phone] documented in this encounter Plan of Treatment Upcoming Encounters Date Type Department Care Team (Late st Contact Info) Description 09/26/2023 11:00 AM EDT Office Visit Family Practice 65 [facility] 293 [facility], [place] [address] [place], Health Metal Finisher [facility] Prac [address] [address] 11/07/2023 9:00 AM EDT Procedure Only Endoscopy, Chevy Garcia 132 [place] [address] Landon Kline MD 132 [place] [address] 12/03/2023 10:40 AM EDT Office Visit Family Practice 65 [facility] 293 [facility], [place] [address] Ferny Sr, 293 [facility], [place] [address] 12/26/2023 11:00 AM EDT Office Visit Cardiology, [facility] 132 [facility] [place] [address] [facility] Cardiology [facility] [place] [facility] 132 [facility] [address] 02/24/2024 11:00 AM EDT Laboratory Laboratory [facility] [address] [place] [phone] Naomi [facility] [address] [place] [address] 02/24/2024 12:00 PM EDT Office Visit Hematology/Oncology [facility] [address] [place] [phone] Michelle Ruffin CRNP 400 [facility] [address] 04/02/2024 10:30 AM EDT Office Visit Sleep Disorders Ctr [facility] 132 [facility] [place] [phone] Mara Archibald CRNP 132 [facility] [place] [address] 05/11/2024 11:15 AM EST Office Visit Dermatology [facility] [address] [place] [address] Kingston Huertas MD [address] [place] [address] Health Maintenance Due Date Last Done Comments [...] Screening 07/29/2024 07/29/2023 CKD HGB USE SMARTSET 13697 09/15/202409/15, 09/16/2023, 08/26/2023, Additional history exists CKD PHOS USE SMARTSET 94730 09/15/202409/04, 08/26/2023, 11/21/2022, Additional history exists O2 ASSESSMENT COMPLETED IN PAST YEAR FOR COPD 09/15/2024 09/16/2023 DXA Scan 08/18/2025 08/18/2023, 03/2022, 10/19/2012, Additional history exists DTaP,Tdap,and Td Vaccines (3 - Td or Tdap) 09/17/2027 09/16/2017, 04/06/2008, 11/06/1995 Pneumococcal Vaccine: 65+ Years Completed 10/14/2014, 04/02/2011, 12/21/2002 Zoster Vaccines Completed 09/15/2019, 10/2018, 06/14/2009 LUNG CANCER SCREENING - USE SMARTSET 18156 Completed 05/16/2021, 02/17/2020, 02/11/2019, Additional history exists COLONOSCOPY-EVERY 5 YRS AGES 18-100 Discontinued 09/04/2022, 02/13/2015, 08/19/2011, Additional history exists Influenza Vaccine (FLU shot) Completed 03/18/2023, 03/13/2022, 03/26/2021, Additional history exists COVID-19 Vaccine Completed 04/29/2023, 02/2022, 12/11/2021, Additional history exists VITAMIN D LEVEL ONCE IN A LIFETIME-USE SMARTSET# 88316 Completed 08/26/2023, 07/15/2022, 03/13/2022, Additional history exists [...] this encounter Medical Devices Implanted Type Area Vocational Auto Body Instructor Device Identifier Shelf Expiration Date Model / Serial / Lot Lens Intraoc 18.5 - [id number] - [id number] Implanted:Qty: 1 on 04/03/2021 by Irvin Canchola MD at OR [facility] Left: Eye BAUSCH & LOMB 01/03/2026 [id number] / [id number] / [id number] Lens Intraoc 18.5 - [id number] - [id number] Implanted:Qty: 1 on 04/10/2021 by Irvin Canchola MD at OR [facility] Right: Eye BAUSCH & LOMB 01/03/2026 [id number] / [id number] / [id number] documented as of this encounter Care Teams Operations Expert Relationship Specialty Start Date End Date Ferny Sr DO 293 [place] [address] PCP - General Internal Medicine 08/31/18 documented as of this encounter
--- OUTSIDE RECORDS SUMMARY | 2024-01-20 22:04 | External Medical Summary | Summary of Care ---
Author Name Unknown Organization [facility] Address [address] [place] [address] Phone [phone] Care Team Providers Care Director Of Donor Relations Name Role Phone Ferny Sr DO Primary Care Provider [phone] Reason for Visit * Reason Onset Date Comments Information 09/24/202309/25 Encounter Details Date Type Department Care Team (Late st Contact Info) Description 09/24/2023 10:00 AM EDT Scheduled Telephone Family Practice [address], [place] [address] [place] [address] College, Nurse [facility] [address] [facility] [address] [place] [address] Allergies Active Allergy Reactions Criticality Noted Date Comments Clarithromycin Other (Please comment) Low 06 1 "Burning mouth" sensation. documented as of this encounter (statuses as of 09/26/2023) Medications Medication Sig Dispensed Refills Start Date End Date Status JodangeUCH ULTRA SYSTEM W/DEVICE KITIndications:DM type 2, goal [...] Active Additional Information Patient taking differently:2 [place] Each NostrilHS, Indications: allergies, Reported on 08/13/2022 [...] mouth daily. 0 Active GNP Calcium 1200 8903-9510 MG-UNIT Oral Tablet Chewable Take 1 Tablet [...] pe 2 diabetes, HbA1C goal < 8% ([facility]) TEST 3 X DAILY DX E11.9 100 Strip 5 06/11/2022 Active ProAir HFA 108 (90 Base) MCG/ACT Inhalation Aerosol SolutionIndications: Acute cough,COPD, group A, by GOLD 2017 classification ([facility]) Inhale 2 Puffs by mouth in the [...] morning. 100 Tablet 3 08/04/2023 Active Pen [place] 32G X 4 MMIndications:Type 2 diabetes mellitus with peripheral neuropathy ([facility]) Use as directed. Once daily 100 Each [...] 3 and hypertension ([facility]) Inject 1 mg under the skin once [...] ons:Type 2 diabetes, HbA1C goal < 8% ([facility]),Type 2 DM with CKD stage 3 and [...] 07/15/2022 Open-angle glaucoma 06/14/2021 10/16/19 Atherosclerosis of [place] co ronary artery without angina pectoris 03/26/2021 [...] mRNA, LNP-s, No Pre serve, 2-Dose Series (CloudBase3) 05/14/2021,09/21/2020,08/31/2020 COVID-19, LNP-s, No Preserve , Jose-sucrose, [...] 11/07/2023 9:00 AM EDT Procedure Only Endoscopy, [facility] [address] [place] [address] Landon Kline MD [address] [place] [address] 12/03/2023 10:40 AM EDT Office Visit Family Practice [address] [place] [address] 293 [place] [address] Ferny Sr DO 293 [facility] [place] [address] 12/26/2023 11:00 AM EDT [facility] [address] [place] [address] Jaiden [facility] Cardiology [facility] [address] [place] [address] 02/24/2024 11:00 AM EDT Laboratory Laboratory [facility] [place] 200 [facility] [place] [phone] Naomi [facility] 200 [facility] [place] [address] 02/24/2024 12:00 PM EDT Office Visit Hematology/Oncology [facility] [place] 200 [facility] [place] [phone] Michelle Ruffin CRNP 400 [facility] [address] 04/02/2024 10:30 AM EDT [facility] [place] [facility] [place] [phone] Mara Archibald CRNP 132 [facility] [place] [address] 05/11/2024 11:15 AM EST Office Visit Dermatology [facility] [place] 200 [facility] [place] [address] Kingston Huertas MD 200 [facility] [place] [address] Health Maintenance Due Date Last Done Comments [...] Screening 07/29/2024 07/29/2023 CKD HGB USE SMARTSET 54596 09/15/202409/15, 09/16/2023, 08/26/2023, Additional history exists CKD PHOS USE SMARTSET 04931 09/15/202409/04, 08/26/2023, 11/21/2022, Additional history exists O2 ASSESSMENT COMPLETED IN PAST YEAR FOR COPD 09/15/2024 09/16/2023 DXA Scan 08/18/2025 08/18/2023, 03/2022, 10/19/2012, Additional history exists DTaP,Tdap,and Td Vaccines (3 - Td or Tdap) 09/17/2027 09/16/2017, 04/06/2008, 11/06/1995 Pneumococcal Vaccine: 65+ Years Completed 10/14/2014, 04/02/2011, 12/21/2002 Zoster Vaccines Completed 09/15/2019, 10/2018, 06/14/2009 LUNG CANCER SCREENING - USE SMARTSET 92091 Completed 05/16/2021, 02/17/2020, 02/11/2019, Additional history exists COLONOSCOPY-EVERY 5 YRS AGES 18-100 Discontinued 09/04/2022, 02/13/2015, 08/19/2011, Additional history exists Influenza Vaccine (FLU shot) Completed 03/18/2023, 03/13/2022, 03/26/2021, Additional history exists COVID-19 Vaccine Completed 04/29/2023, 02/2022, 12/11/2021, Additional history exists VITAMIN D LEVEL ONCE IN A LIFETIME-USE SMARTSET# 97418 Completed 08/26/2023, 07/15/2022, 03/13/2022, Additional history exists [...] this encounter Medical Devices Implanted Type Area Appeals Analyst Device Identifier Shelf Expiration Date Model / Serial / Lot Lens Intraoc 18.5 - [id number] - [id number] Implanted:Qty: 1 on 04/03/2021 by Irvin Canchola MD at OR [facility] [address] Left: Eye BAUSCH & LOMB 01/03/2026 [id number] / [id number] / [id number] Lens Intraoc 18.5 - [id number] - [id number] Implanted:Qty: 1 on 04/10/2021 by Irvin Canchola MD at OR [facility] [address] Right: Eye BAUSCH & LOMB 01/03/2026 [id number] / [id number] / [id number] documented as of this encounter Care Teams Director Of Donor Relations Relationship Specialty Start Date End Date Ferny Sr DO [address] [place] [address] PCP - General Internal Medicine 08/31/18 documented as of this encounter
--- OUTSIDE RECORDS SUMMARY | 2024-01-20 22:04 | External Medical Summary | Summary of Care ---
Author Name Unknown Organization [facility] Address [address] [place] [address] Phone [phone] Care Team Providers Care Account Development Representative Name Role Phone Disha Sr DO Primary Care Provider [phone] Encounter Details Date Type Department Care Team (Late st Contact Info) Description 09/22/2023 Refill Family Practice [address] [place] [address] [place] [address] Disha Sr DO [address] [place] [address] Type 2 diabetes, HbA1C goal < 8% ([facility]); Type 2 DM with CKD stage 3 and hypertension ([facility]) Allergies Active Allergy Reactions Criticality Noted Date Comments Clarithromycin Other (Please comment) Low 1 "Burning mouth" sensation. documented as of this encounter (statuses as of 09/22/2023) Medications Medication Sig Dispensed Refills Start Date End Date Status Maven BiotechnologiesTOUCH ULTRA SYSTEM W/DEVICE KITIndications:DM type 2, goal [...] mouth daily. 0 Active GNP Calcium 1200 9060-4316 MG-UNIT Oral Tablet Chewable Take 1 Tablet [...] ype 2 diabetes, HbA1C goal < 8% ([facility] [...] morning. 100 Tablet 3 4 Active Pen [place] 32G X 4 MMIndications:Type 2 diabetes mellitus [...] ions:Type 2 diabetes, HbA1C goal < 8% ([facility]),Type 2 DM with CKD stage 3 and hypertension ([facility]) Inject 30 Units under the skin every evening. 30 mL 2 4 Active Insulin Glargine Solostar 100 UNIT/ML Subcutaneous Solution Pen-injectorIndicat ions:Type 2 diabetes, HbA1C goal < 8% ([facility] [...] Open-angle glaucoma 06/14/2021 10/16/19 22 Atherosclerosis of [place] ronary artery without angina pectoris [...] mRNA, LNP-s, No Pre serve, 2-Dose Series ([employer]) 05/14/2021,09/21/2020,08/31/2020 COVID-19, LNP-s, No Preserve , Jose-sucrose, Ages 12+ (Pfizer) 12/11/2021 COVID-19, MRNA-LNP, 23-24, P F, 30 MCG/0.3 mL, 12 YRS AND ABOVE, IM ([facility]) 04/29/2023 Covid-19, Mrna, Lnp-s, Pf, B ivalent, 30 Mcg, IM, 12 yrs and above ([employer]) 05/14/2022 Pneumococcal Conjugate Vacc, 13 Valent (Prevnar) [...] Telephone Encounter - Disha Sr DO - 09/22/2023 4:11 PM EDTSigned Prescriptions: Disp Refills Insulin Glargine Solostar 100 UNIT/ML Subc*30 mL 2 Sig: Inject 30 Units under the skin every evening.Authorizing Provider: DISHA SR User: ELIZABETH TOPETE * Telephone Encounter - Elizabeth Topete [facility] - 09/22/2023 1:44 PM EDTSigned Prescriptions: Disp Refills Insulin Glargine Solostar 100 UNIT/ML Subc*30 mL 2 Sig: Inject 30 Units under the skin every evening.Authorizing Provider: DISHA SR User: ELIZABETH TOPETE Electronically signed by Elizabeth Topete [facility] at 09/22/2023 1:44 PM EDT * Telephone Encounter - Elizabeth Topete RP - 09/22/2023 1:38 PM EDT Rx signed per protocol. Elizabeth Cui, Pharm D, BCACP Clinical Pharmacist 65 [facility] 09/22/2023, 1:38 PM Ph. [phone] * Telephone Encounter - Sasha Balderas LPN [...] Adarsh and patient can be reached at [phone] with any questions or concerns documented in this encounter Plan of Treatment Upcoming Encounters Date Type Department Care Team (Late st Contact Info) Description 09/23/2023 11:00 AM EDT Office Visit Family Practice [address] [place] [address], [place] [address] [place], Health Bag Sealer Fam Prac [address] [place] [address] 09/26/2023 11:00 AM EDT Office Visit Family Practice 65 [facility] 293 [place] [address] [place], Health Bag Sealer Fam Prac 65 [facility] 293 [place] [address] 11/07/2023 9:00 AM EDT Procedure Only Endoscopy, [facility] 132 [facility] [place] [address] Landon Kline MD 132 [facility] [address] 12/03/2023 10:40 AM EDT Office Visit Family Practice [address] [place] [address] 293 [place] [address] Disha Sr, 293 [place] [address] 12/26/2023 11:00 AM EDT Office Visit Cardiology, [facility] 132 [facility] [address] [facility] Cardiology [facility] 132 [facility] [address] 02/24/2024 11:00 AM EDT [facility] [place] [address] [place] [address] Trish Salgado [address] [place] [address] 02/24/2024 12:00 PM EDT Office [facility]ology[facility] [place] [address] [place] [address] Michelle Ruffin CRNP [address] [place] [address] 04/02/2024 10:30 AM EDT Office Visit Sleep Disorders Ctr Jimi Hwang [place] [address] [place] [phone] Mara Archibald CRNP [address] [place] [address] 05/11/2024 11:15 AM EST Office Visit Dermatology Yvette Salgado [place] 200 [facility] [place] [address] [place] Huertas MD 200 [facility] [place] [address] Health Maintenance Due Date Last Done Comments [...] Screening 07/29/2024 07/29/2023 CKD HGB USE SMARTSET 42770 09/15/202409/15, 09/16/2023, 08/26/2023, Additional history exists CKD PHOS USE SMARTSET 87200 09/15/202409/04, 08/26/2023, 11/21/2022, Additional history exists O2 ASSESSMENT COMPLETED IN PAST YEAR FOR COPD 09/15/2024 09/16/2023 DXA Scan 08/18/2025 08/18/2023, 03/2022, 10/19/2012, Additional history exists DTaP,Tdap,and Td Vaccines (3 - Td or Tdap) 09/17/2027 09/16/2017, 04/06/2008, 11/06/1995 Pneumococcal Vaccine: 65+ Years Completed 10/14/2014, 04/02/2011, 12/21/2002 Zoster Vaccines Completed 09/15/2019, 10/2018, 06/14/2009 LUNG CANCER SCREENING - USE SMARTSET 41673 Completed 05/16/2021, 02/17/2020, 02/11/2019, Additional history exists COLONOSCOPY-EVERY 5 YRS AGES 18-100 Discontinued 09/04/2022, 02/13/2015, 08/19/2011, Additional history exists Influenza Vaccine (FLU shot) Completed 03/18/2023, 03/13/2022, 03/26/2021, Additional history exists COVID-19 Vaccine Completed 04/29/2023, 02/2022, 12/11/2021, Additional history exists VITAMIN D LEVEL ONCE IN A LIFETIME-USE SMARTSET# 37401 Completed 08/26/2023, 07/15/2022, 03/13/2022, Additional history exists [...] this encounter Medical Devices Implanted Type Area Word Processing Supervisor Device Identifier Shelf Expiration Date Model / Serial / Lot Lens Intraoc 18.5 - [id number] - [id number] Implanted:Qty: 1 on 04/03/2021 by Irvin Canchola MD at [facility] Left: Eye BAUSCH & LOMB 01/03/2026 [id number] / [id number] / [id number] Lens Intraoc 18.5 - [id number] - [id number] Implanted:Qty: 1 on 04/10/2021 by Irvin Canchola MD at OR [facility] Right: Eye BAUSCH & LOMB 01/03/2026 [id number] / [id number] / [id number] documented as of this encounter Visit Diagnoses Diagnosis Type 2 diabetes, HbA1C goal < 8% (HCC) Type II or unspecified type diabetes mellitus without mention of complication, not stated as uncontrolled Type 2 DM with CKD stage 3 and hypertension ([facility]CC) documented in this encounter Care Teams Account Development Representative Relationship Specialty Start Date End Date Disha Sr DO [address] [place] [address] PCP - General Internal Medicine 08/31/18 documented as of this encounter
--- OUTSIDE RECORDS SUMMARY | 2024-01-20 22:04 | External Medical Summary | Summary of Care ---
Author Name Unknown Organization [facility] Address [address] [place] [address] Phone [phone] Care Team Providers Care Emergency Operator Name Role Phone Ferny Sr DO Primary Care Provider [phone] Encounter Details Date Type Department Care Team (Late st Contact Info) Description 09/26/2023 Documentation [facility] WELLNESS Linsey Cho, Health Surveillance Specialist Allergies Active Allergy Reactions Criticality Noted Date [...] 01/11/2020 Active Additional Information Patient taking differently:2 [place] Each NostrilHS, Indications: allergies, Reported on 08/13/2022 [...] mouth daily. 0 Active GNP Calcium 1200 9719-5075 MG-UNIT Oral Tablet Chewable Take 1 Tablet [...] use of insulin ([facility]),Type 2 diabetes mellitus with peripheral neuropathy ([facility]),Type [...] morning. 100 Tablet 3 08/04/2023 Active Pen [place] 32G X 4 MMIndications:Type 2 diabetes mellitus [...] (peripheral artery disease) ([facility]) Take 1 Tablet by mouth in the [...] [facility] Inject 30 Units under the skin every evening. 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 intermediary current use of aromatase inhibitor Type 2 [...] and oxygen 06/08 Overview: with 4 LPM [facility] Last Assessment & Plan: Compliant with [...] 07/15/2022 Open-angle glaucoma 06/14/2021 10/16/19 Atherosclerosis of [place] co ronary artery without angina pectoris 03/26/2021 [...] mRNA, LNP-s, No Pre serve, 2-Dose Series ([employer]) 05/14/2021,09/21/2020,08/31/2020 COVID-19, LNP-s, No Preserve , Jose-sucrose, Ages 12+ ([employer]) 12/11/2021 COVID-19, MRNA-LNP, 23-24, P F, 30 MCG/0.3 mL, 12 YRS AND ABOVE, IM ([facility]) 04/29/2023 Covid-19, [...] encounter Progress Notes * Linsey Cho Health Surveillance Specialist - 09/26/2023 2:15 PM EDT Did patient attend session 4 [...] 11/07/2023 9:00 AM EDT Procedure Only Endoscopy, [facility] [address] [place] [address] Landon Kline MD [address] [place] [address] 12/03/2023 10:40 AM EDT Office Visit Family Practice [address] [place] [address] 293 [facility] [place] [address] Ferny Sr, 293 [place] [address] 12/26/2023 11:00 AM EDT [facility] [address] [place] [address] [facility] Cardiology [facility] 132 [place] [address] 02/24/2024 11:00 AM EDT Laboratory Laboratory [facility] [address] [place] [address] [facility] [address] [facility] [place] [address] 02/24/2024 12:00 PM EDT Office Visit Hematology/Oncology [facility] [place] [address] [place] [phone] Michelle Ruffin CRNP [address] [place] [address] 04/02/2024 10:30 AM EDT Office Visit Sleep Disorders Ctr Jimi Hwang [place] 132 [facility] [place] [phone] Mara Archibald CRNP 132 [facility] [place] [address] 05/11/2024 11:15 AM EST Office Visit Dermatology [facility] [place] 200 [facility] [place], [place] [address] Kingston Huertas MD 200 [facility] [place] [address] Health Maintenance Due Date Last Done Comments [...] Screening 07/29/2024 07/29/2023 CKD HGB USE SMARTSET 51911 09/15/202409/15, 09/16/2023, 08/26/2023, Additional history exists CKD PHOS USE SMARTSET 58700 09/15/202409/04, 08/26/2023, 11/21/2022, Additional history exists O2 ASSESSMENT COMPLETED IN PAST YEAR FOR COPD 09/15/2024 09/16/2023 DXA Scan 08/18/2025 08/18/2023, 03/2022, 10/19/2012, Additional history exists DTaP,Tdap,and Td Vaccines (3 - Td or Tdap) 09/17/2027 09/16/2017, 04/06/2008, 11/06/1995 Pneumococcal Vaccine: 65+ Years Completed 10/14/2014, 04/02/2011, 12/21/2002 Zoster Vaccines Completed 09/15/2019, 10/2018, 06/14/2009 LUNG CANCER SCREENING - USE SMARTSET 99462 Completed 05/16/2021, 02/17/2020, 02/11/2019, Additional history exists COLONOSCOPY-EVERY 5 YRS AGES 18-100 Discontinued 09/04/2022, 02/13/2015, 08/19/2011, Additional history exists Influenza Vaccine (FLU shot) Completed 03/18/2023, 03/13/2022, 03/26/2021, Additional history exists COVID-19 Vaccine Completed 04/29/2023, 02/2022, 12/11/2021, Additional history exists VITAMIN D LEVEL ONCE IN A LIFETIME-USE SMARTSET# 86496 Completed 08/26/2023, 07/15/2022, 03/13/2022, Additional history exists [...] this encounter Medical Devices Implanted Type Area Chair Post Machine Operator Device Identifier Shelf Expiration Date Model / Serial / Lot Lens Intraoc 18.5 - [id number] - [id number] Implanted:Qty: 1 on 04/03/2021 by Irvin Canchola MD at OR [facility] Left: Eye BAUSCH & LOMB 01/03/2026 [id number] / [id number] / [id number] Lens Intraoc 18.5 - [id number] - [id number] Implanted:Qty: 1 on 04/10/2021 by Irvin Canchola MD at OR [facility] Right: Eye BAUSCH & LOMB 01/03/2026 [id number] / [id number] / [id number] documented as of this encounter Care Teams Emergency Operator Relationship Specialty Start Date End Date Ferny Sr DO 293 [place] [address] PCP - General Internal Medicine 08/31/18 documented as of this encounter
--- OUTSIDE RECORDS SUMMARY | 2024-01-20 22:04 | External Medical Summary | Summary of Care ---
Author Name Unknown Organization [facility] Address [address] [place] [address] Phone [phone] Care Team Providers Care Certified Medical Records Coder Name Role Phone Ferny Sr DO Primary Care Provider [phone] Encounter Details Date Type Department Care Team (Late st Contact Info) Description 09/23/2023 Documentation HEALTH & WELLNESS Linsey Cho, Health Fairing Man Allergies Active Allergy Reactions Criticality Noted Date Comments Clarithromycin Other (Please comment) Low 1 "Burning mouth" sensation. documented as of this encounter (statuses as of 09/23/2023) Medications Medication Sig Dispensed Refills Start Date [...] 01/11/2020 Active Additional Information Patient taking differently:2 [place] Each NostrilHS, Indications: allergies, Reported on 08/13/2022 [...] mouth daily. 0 Active GNP Calcium 1200 9446-9453 MG-UNIT Oral Tablet Chewable Take 1 Tablet [...] morning. 100 Tablet 3 08/04/2023 Active Pen [place] 32G X 4 MMIndications:Type 2 diabetes mellitus with peripheral neuropathy ([facility]) Use as directed. Once daily 100 Each [...] [facility]) Inject 1 mg under the skin once [...] less than 70,PAD (peripheral artery disease) ([facility]) [...] as of this encounter (statuses as of 09/23/2023) Active Problems Problem Noted Date Diagnosed Date [...] as of this encounter (statuses as of 09/23/2023) Resolved Problems Problem Noted Date Diagnosed Date [...] as of this encounter (statuses as of 09/23/2023) Immunizations Name Administration Dates Next Due COVID-19 mRNA, LNP-s, No Pre serve, 2-Dose Series ([employer]) 05/14/2021,09/21/2020,08/31/2020 COVID-19, LNP-s, No Preserve , Jose-sucrose, Ages 12+ ([employer]) 12/11/2021 COVID-19, MRNA-LNP, 23-24, P F, 30 MCG/0.3 mL, 12 YRS AND ABOVE, IM ([facility]) 04/29/2023 Covid-19, Mrna, Lnp-s, Pf, [...] encounter Progress Notes * Linsey Cho Health Fairing Man - 09/23/2023 3:25 PM EDT Did patient attend session 3 of 10 of the small group balance program? No: Patient did not attend session 1 of 10 of the small group balance program. Patient was unable to attend session 3 of 10. documented in this encounter Plan of Treatment Upcoming Encounters Date Type Department Care Team (Late st Contact Info) Description 09/24/2023 10:00 AM EDT Scheduled Telephone Family Practice [address] [place] [phone] [place], Nurse Fam Prac [address] [place] [address] 09/26/2023 11:00 AM EDT Office Visit Family Practice [address] [place] [phone] [employer], Health Fairing Man Fam Prac [address] [place] [address] 11/07/2023 9:00 AM EDT Procedure Only Endoscopy, [facility] 132 [place] [address] Landon Kline MD 132 [place] [address] 12/03/2023 10:40 AM EDT Office Visit Family Practice 65 [address] [phone] Ferny Sr, DO [address] [place], [place] [address] 12/26/2023 11:00 AM EDT Office Visit Cardiology, [facility] 132 [facility] [address] [facility] Cardiology [facility] 132 [place] [address] 02/24/2024 11:00 AM EDT Laboratory Laboratory [facility] [place] 200 [facility] [place] [phone] Naomi [place] [address] [address] [facility] [place] [address] 02/24/2024 12:00 PM EDT Office Visit Hematology/Oncology [facility] [place] [address] [place] [address] [phone] Michelle Ruffin CRNP 400 [facility] [address] 04/02/2024 10:30 AM EDT Office Visit [facility] Ctr [facility] 132 [facility] [phone] Mara Archibald CRNP 132 [facility] [address] 05/11/2024 11:15 AM EST Office Visit Dermatology [facility] [place] [address] [place] [address] [address] Kingston Huertas MD 200 [place] [address] Health Maintenance Due Date Last Done Comments [...] Screening 07/29/2024 07/29/2023 CKD HGB USE SMARTSET 53095 09/15/202409/15, 09/16/2023, 08/26/2023, Additional history exists CKD PHOS USE SMARTSET 72977 09/15/202409/04, 08/26/2023, 11/21/2022, Additional history exists O2 ASSESSMENT COMPLETED IN PAST YEAR FOR COPD 09/15/2024 09/16/2023 DXA Scan 08/18/2025 08/18/2023, 03/2022, 10/19/2012, Additional history exists DTaP,Tdap,and Td Vaccines (3 - Td or Tdap) 09/17/2027 09/16/2017, 04/06/2008, 11/06/1995 Pneumococcal Vaccine: 65+ Years Completed 10/14/2014, 04/02/2011, 12/21/2002 Zoster Vaccines Completed 09/15/2019, 1110/2018, 06/14/2009 LUNG CANCER SCREENING - USE SMARTSET 96213 Completed 05/16/2021, 02/17/2020, 02/11/2019, Additional history exists COLONOSCOPY-EVERY 5 YRS AGES 18-100 Discontinued 09/04/2022, 02/13/2015, 08/19/2011, Additional history exists Influenza Vaccine (FLU shot) Completed 03/18/2023, 03/13/2022, 03/26/2021, Additional history exists COVID-19 Vaccine Completed 04/29/2023, 02/2022, 12/11/2021, Additional history exists VITAMIN D LEVEL ONCE IN A LIFETIME-USE SMARTSET# 08208 Completed 08/26/2023, 07/15/2022, 03/13/2022, Additional history exists [...] this encounter Medical Devices Implanted Type Area Baton Twirler Device Identifier Shelf Expiration Date Model / Serial / Lot Lens Intraoc 18.5 - [id number] - [id number] Implanted:Qty: 1 on 04/03/2021 by Irvin Canchola MD at OR [facility] Left: Eye [employer]CH [employer] LOMB 01/03/2026 [id number] / [id number] / [id number] Lens Intraoc 18.5 - [id number] - [id number] Implanted:Qty: 1 on 04/10/2021 by Irvin Canchola MD at OR [facility] Right: Eye BAUSCH & LOMB 01/03/2026 [id number] / [id number] / [id number] documented as of this encounter Care Teams Certified Medical Records Coder Relationship Specialty Start Date End Date Ferny Sr DO [address] [place] [address] PCP - General Internal Medicine 08/31/18 documented as of this encounter
--- OUTSIDE RECORDS SUMMARY | 2024-01-20 22:05 | External Medical Summary | Summary of Care ---
Author Name Unknown Organization [facility] Address [address] [place] [address] Phone [phone] Care Team Providers Care Machinist Apprentice Wood Name Role Phone Ferny Sr DO Primary Care Provider [phone] Reason for Visit * Reason Comments Outpatient Testing Encounter Details Date Type Department Care Team (Late st Contact Info) Description 09/16/2023 10:40 AM EDT Laboratory Laboratory [facility] [address] [place] [address] [facility] Scen[address] [place] [address] Dyslipidemia, goal LDL below 70; Osteoporosis without current pathological fracture, unspecified osteoporosis type Allergies Active Allergy Reactions Criticality Noted Date Comments Clarithromycin Other (Please comment) Low 06200 1 "Burning mouth" sensation. documented as of this encounter (statuses as of 09/16/2023) Medications Medication Sig Dispensed Refills Start Date [...] 01/11/2020 Active Additional Information Patient taking differently:2 [place] Each NostrilHS, Indications: allergies, Reported on 08/13/2022 [...] mouth daily. 0 Active GNP Calcium 1200 3203-6582 MG-UNIT Oral Tablet Chewable Take 1 Tablet [...] diabetes, HbA1C goal < 8% ([facility]) TEST 3 X DAILY DX E11.9 100 Strip 5 06/11/2022 Active ProAir HFA 108 (90 Base) MCG/ACT Inhalation Aerosol SolutionIndications: Acute cough,COPD, group A, by GOLD 2017 classification ([facility]) Inhale 2 Puffs by mouth in the morning and 2 Puffs at noon and 2 Puffs in the evening and 2 Puffs before bedtime. 8 g 0 09/13/2022 Active Additional Information Patient not taking.Reported on 08/13/2023 Melatonin 5 MG Oral Capsule Take 1 Capsule by mouth at bedtime. 0 Active Insulin Glargine Solostar 100 UNIT/ML Subcutaneous Solution Pen-injectorIndicati ons:Type 2 diabetes, HbA1C goal < 8% ([facility]),Type 2 DM with CKD stage 3 and hypertension (HCC) Inject 30 Units under the skin every evening. 15 mL 3 03/20/2023 Active Atorvastatin Calcium 80 MG Oral Tablet [...] (HCC),Type 2 diabetes, HbA1C goal < 8% ([facility]) Take 1 Tablet by mouth in the morning. 100 Tablet 2 08/04/2023 Active Letrozole 2.5 MG Oral Tablet (Femara)Indications: Malignant neoplasm of right breast in female, estrogen receptor positive, unspecified site of breast (HCC) Take 1 Tablet by mouth in the morning. 100 Tablet 3 08/04/2023 Active Pen [place] 32G X 4 MMIndications:Type 2 diabetes mellitus with peripheral neuropathy ([facility]) Use as directed. Once daily 100 Each [...] 1 Tablet before bedtime. 200 Tablet 3 08/25/2023 Active Folic Acid 1 MG Oral Tablet Take 1 Tablet by mouth in the morning. 100 Tablet 3 08/25/2023 Active oxyCODONE-Acetaminop hen 5-325 MG Oral [...] the morning. 100 Tablet 3 09/11/2023 Active documented as of this encounter (statuses as of 09/16/2023) Active Problems Problem Noted Date Diagnosed Date Osteoporosis without current pathological fractu re 08/27/2023 bin cleaner current use of aromatase inhibitor Type 2 [...] as of this encounter (statuses as of 09/16/2023) Resolved Problems Problem Noted Date Diagnosed Date Resolved Date Diabetes mellitus with stage 3 chronic kidney disease 07/15/2022 07/15/2022 Diabetes mellitus 07/15/2022 09/10/2022 Hypertensive heart disease without CHF 01/04/2022 07/15/2022 Open-angle glaucoma 06/14/2021 10/16/19 Atherosclerosis of [place] ronary artery without angina pectoris [...] as of this encounter (statuses as of 09/16/2023) Immunizations Name Administration Dates Next Due COVID-19 mRNA, LNP-s, No Pre serve, 2-Dose Series ([employer]) 05/14/2021,09/21/2020,08/31/2020 COVID-19, LNP-s, No Preserve , Jose-sucrose, [...] Care Team (Late st Contact Info) Description 09/16/2023 11:45 AM EDT Hem/Onc Treatment Hematology/Oncolog y Treatment, [place] [address] [place] [phone] bin cleaner current use of aromatase inhibitor*; Osteoporosis without current pathological fracture, unspecified osteoporosis type 11/07/2023 9:00 AM EDT Procedure Only Endoscopy, [place] [address] [facility] [place] [address] Landon Kline MD 132 [facility] [place] [address] 12/03/2023 10:40 AM EDT Office Visit Family Practice [address] [place] [address] [address] [place] [address] Ferny Sr DO [address] [place] [address] 12/26/2023 11:00 AM EDT [facility] [address] [place] [address] [facility] 132 [facility] [place] [address] 02/24/2024 11:00 AM EDT Laboratory Laboratory [facility] 200 [facility] [place] [phone] Na[facility] 200 [facility] [place] [address] 02/24/2024 12:00 PM EDT Office Visit Hematology/Oncolog y [facility] [place] 200 [facility] [place] [phone] Michelle Ruffin CRNP [address] [facility] [place] [address] 04/02/2024 10:30 AM EDT [facility] [place] [address] [facility] [place] [phone] Mara Archibald CRNP 132 [facility] [address] 05/11/2024 11:15 AM EST Office Visit Dermatology [facility] Naomi [place] [address] [facility] [place] [address] Kingston Huertas MD 200 [facility] [place] [address] Pending Results Name Type Priority Associated Diagnoses Date /Time LIPID PANEL WITH DIRECT LDL IF TG IS HIGH Lab Routine Dyslipidemia, goal LDL below 70 09/16/2023 10:49 AM EDT COMPREHENSIVE METABOLIC PANEL Lab STAT Osteoporosis without current pathological fracture, unspecified osteoporosis type 09/16/2023 10:49 AM EDT PHOSPHORUS Lab STAT Osteoporosis without current pathological fracture, unspecified osteoporosis type 09/16/2023 10:49 AM EDT Health Maintenance Due Date Last Done Comments Alpha-1 Antitrypsin 12/02/1963 Albumin/Creatinine Ratio 07/15/2023 023, 08/15/2021, 09/14/2020, Additional history exists *BISPHONATE OR OTHER ACCEPTABLE MEDICATION NEEDED FOR OSTEOPOROSIS (REFER TO SMARTSET #1146) 08/30/2023 COLONOSCOPY-ANNUAL AGES 18-100 09/05/2023 09/04/2022, 02/13/2015, 08/19/2011, Additional history exists Diabetic Foot Exam 11/14/2023 11/13/2022, 0 12/07/2021, 01/23/2021, Additional history exists HbA1c 01/27/2024 07/29/2023, 09/1 08/2022, 11/13/2022, Additional history exists GFR 02/24/2024 08/26/2023, 0208/2023, 07/29/2023, Additional history exists Diabetic Eye Exam 06/09/2024 06/09/2023, , 12/06/2022, Additional history exists Depression Screening 07/29/2024 07/29/2023 CKD PHOS USE SMARTSET 87661 08/26/202408/08, 11/21/2022, 11/13/2022, Additional history exists O2 ASSESSMENT COMPLETED IN PAST YEAR FOR COPD 08/26/2024 08/26/2023 CKD HGB USE SMARTSET 54993 09/15/202409/15, 09/16/2023, 08/26/2023, Additional history exists DXA Scan 08/18/2025 08/18/2023, 03/2022, 10/19/2012, Additional history exists DTaP,Tdap,and Td Vaccines (3 - Td or Tdap) 09/17/2027 09/16/2017, 04/06/2008, 11/06/1995 Pneumococcal Vaccine: 65+ Years Completed 10/14/2014, 04/02/2011, 12/21/2002 Zoster Vaccines Completed 09/15/2019, 10/2018, 06/14/2009 LUNG CANCER SCREENING - USE SMARTSET 99003 Completed 05/16/2021, 02/17/2020, 02/11/2019, Additional history exists COLONOSCOPY-EVERY 5 YRS AGES 18-100 Discontinued 09/04/2022, 02/13/2015, 08/19/2011, Additional history exists Influenza Vaccine (FLU shot) Completed 03/18/2023, 03/13/2022, 03/26/2021, Additional history exists COVID-19 Vaccine Completed 04/29/2023, 02/2022, 12/11/2021, Additional history exists VITAMIN D LEVEL ONCE IN A LIFETIME-USE SMARTSET# 94775 Completed 08/26/2023, 07/15/2022, 03/13/2022, Additional history exists [...] this encounter Medical Devices Implanted Type Area Harp Maker Device Identifier Shelf Expiration Date Model / Serial / Lot Lens Intraoc 18.5 - [id number] - [id number] Implanted:Qty: 1 on 04/03/2021 by Irvin Canchola MD at [facility] Left: Eye BAUSCH & LOMB 01/03/2026 [id number] / [id number] / [id number] Lens Intraoc 18.5 - [id number] - [id number] Implanted:Qty: 1 on 04/10/2021 by Irvin Canchola MD at OR [facility] Right: Eye BAUSCH & LOMB 01/03/2026 [id number] / [id number] / [id number] documented as of this encounter Procedures Procedure Name Priority Date/Time Associated Diagnosis Comments DIFFERENTIAL, AUTOMATED STAT 09/16/2023 10:49 AM EDT Osteoporosis without current pathological fracture, unspecified osteoporosis type CBC STAT 09/16/2023 10:49 AM EDT Osteoporosis without current pathological fracture, unspecified osteoporosis type CBC STAT 09/16/2023 10:49 AM EDT Osteoporosis without current pathological fracture, unspecified osteoporosis type documented in this encounter Results * DIFFERENTIAL, AUTOMATED (09/16/2023 10:49 AM EDT) WBC 7.87 4.00 - 10.80 K/uL 09/16/2023 10:57 AM EDT [facility] 56-02 Neutrophils % 52.5 40.0 - 75.0 % 09/16/2023 10:57 AM EDT [facility] 56-02 Lymphocytes % 34.8 18.0 - 42.0 % 09/16/2023 10:57 AM EDT [facility] 56-02 Monocytes % 8.5 1.0 - 11.0 % 09/16/2023 10:57 AM EDT [facility] 56-02 Eosinophils % 3.8 0.0 - 6.0 % 09/16/2023 10:57 AM EDT [facility] 56-02 Basophils % 0.4 0.0 - 2.0 % 09/16/2023 10:57 AM EDT [facility] 56-02 Absolute Neutrophils 4.13 1.80 - 7.70 K/uL 09/16/2023 10:57 AM EDT [facility] 56-02 Absolute Lymphocytes 2.74 1.00 - 4.80 K/ul 09/16/2023 10:57 AM EDT [facility] 56-02 Absolute Monocytes 0.67 0.00 - 1.10 K/uL 09/16/2023 10:57 AM EDT [facility] 56-02 Absolute Eosinophils 0.30 0.00 - 0.70 K/uL 09/16/2023 10:57 AM EDT [facility] 56-02 Absolute Basophils 0.03 0.00 - 0.20 K/uL 09/16/2023 10:57 AM EDT [facility] 56-02 Blood Venous blood specimen / Unknown Venipuncture / Unknown 09/16/2023 10:49 AM EDT 09/16/2023 10:51 AM EDT Michelle BOLTON LAB BLOOD ORDER ROSALINA [facility] 56-[address] [place] [address] * CBC (09/16/2023 10:49 AM EDT) WBC 7.87 4.00 - 10.80 K/uL 09/16/2023 10:57 AM EDT [facility] 56-02 RBC 3.99 3.85 - 5.15 M/uL 09/16/2023 10:57 AM EDT [facility] 56-02 HGB 12.6 12.0 - 15.3 g/dL 09/16/2023 10:57 AM EDT [facility] 56- HCT 41.0 36.0 - 45.2 % 09/16/2023 10:57 AM EDT [facility] 56- MCV 102.8 81.5 - 97.5 fL 09/16/2023 10:57 AM T [facility] 56- MCH 31.6 27.0 - 34.0 pg 09/16/2023 10:57 AM EDT [facility] 56-02 MCHC 30.7 32.0 - 36.0 g/dL 09/16/2023 10:57 AM EDT [facility] 56- RDW 13.5 11.5 - 15.5 % 09/16/2023 10:57 AM EDT [facility] 56- PLT 229 140 - 400 K/uL 09/16/2023 10:57 AM T [facility] 56- MPV 9.3 6.6 - 11.1 fL 09/16/2023 10:57 AM T [facility] 56-02 Blood Venous blood specimen / Unknown Venipuncture / Unknown 09/16/2023 10:49 AM EDT 09/16/2023 10:51 AM EDT Michelle BOLTON LAB BLOOD ORDER ROSALINA [facility] 56- [address] [place] [address] documented in this encounter Visit Diagnoses Diagnosis MCC current use of aromatase inhibitor- Primary Use of aromatase inhibitors Osteoporosis without current pathological fracture, unspecified osteoporosis type Dyslipidemia, goal LDL below 70 Other and unspecified hyperlipidemia Osteoporosis without current pathological fracture, unspecified osteoporosis type documented in this encounter Care Teams Machinist Apprentice Wood Relationship Specialty Start Date End Date Ferny Sr DO [address] [facility] [place] [address] PCP - General Internal Medicine 08/31/18 documented as of this encounter
--- OUTSIDE RECORDS SUMMARY | 2024-01-20 22:05 | External Medical Summary ---
Author Name Unknown Address Unknown Organization [id number]:[facility] [place] [address] Laboratory Report Ordering Provider Test Date Status JOY ROCHE 09/16/2023 10:49:41 Final Observation Date Value Abnormality Reference (Units ) Status SYNC LEUKOCYTES IN BLOOD BY AUTOMATED COUNT 09/16/2023 10:49:41 7.87 4.00-10.80 (K/uL) Final Segs 09/16/2023 10:49:41 52.5 40.0-75.0 (%) Final Lymphs % 09/16/2023 10:49:41 34.8 18.0-42.0 (%) Final Monos 09/16/2023 10:49:41 8.5 1.0-11.0 (%) Final Eosinophils 09/16/2023 10:49:41 3.8 0.0-6.0 (%) Final Basos 09/16/2023 10:49:41 0.4 0.0-2.0 (%) Final Absolute Segs 09/16/2023 10:49:41 4.13 1.80-7.70 (K/uL) Final Lymphs, absolute 09/16/2023 10:49:41 2.74 1.00-4.80 (K/ul) Final Monos, Abs 09/16/2023 10:49:41 0.67 0.00-1.10 (K/uL) Final Eos, Abs 09/16/2023 10:49:41 0.30 0.00-0.70 (K/uL) Final Basos, Abs 09/16/2023 10:49:41 0.03 0.00-0.20 (K/uL) Final Performing Location [facility] [place] [address]
--- OUTSIDE RECORDS SUMMARY | 2024-01-20 22:05 | External Medical Summary ---
Author Name Unknown Address Unknown Organization [id number]:[facility] [place] [address] [place] [address] Laboratory Report Ordering Provider Test Date Status LEOBARDO HINDS 09/16/2023 10:49:41 Final Observation Date Value Abnormality Reference (Units ) Status Triglyceride 09/16/2023 10:49:41 271 Above high normal <=174 (mg/dL) Final Triglyceride Reference Range s (mg/dL):
<150 Acceptable
150-174 Borderline high
175-499 High
>=500 Very high Cholesterol 09/16/2023 10:49:41 170 <200 (mg /dL) Final Total Cholesterol Reference Ranges (mg/dL):
<200 Desirable
200-239 Borderline high
>=240 High HDL 09/16/2023 10:49:41 57 >49 (mg/dL ) Final HDL Cholesterol Reference Ra nges (mg/dL):
>=60 High (Desirable)
<50 Low (Undesirable) For Females
<40 Low (Undesirable) For Males NON-HDL CHOLESTEROL 09/16/2023 10:49:41 113 <=159 (mg/dL) Final Non-HDL Cholesterol Referenc e Range (mg/dL):
<100 Target level for high risk ASCVD patient
<130 Optimal for general population
130-159 Near optimal for general population
160-189 Borderline High
190-219 High
>=220 Very High Performing Location [facility] [place] [address] [place] [address]
--- OUTSIDE RECORDS SUMMARY | 2024-01-20 22:05 | External Medical Summary ---
Author Name Unknown Address Unknown Organization K09:[facility] [place] [address] Laboratory Report Ordering Provider Test Date Status JOY ROCHE 09/16/2023 10:49:41 Final Observation Date Value Abnormality Reference (Units ) Status WBC, Total 09/16/2023 10:49:41 7.87 4.00-10.8 0 (K/uL) Final RBC 09/16/2023 10:49:41 3.99 3.85-5.15 (M/uL) Final Hemoglobin 09/16/2023 10:49:41 12.6 12.0-15.3 (g/dL) Final HCT 09/16/2023 10:49:41 41.0 36.0-45.2 (%) Final MCV 09/16/2023 10:49:41 102.8 81.5-97.5 (fL) Final MCH 09/16/2023 10:49:41 31.6 27.0-34.0 (pg) Final MCHC 09/16/2023 10:49:41 30.7 32.0-36.0 (g/dL) Final RDW 09/16/2023 10:49:41 13.5 11.5-15.5 (%) Final Platelets 09/16/2023 10:49:41 229 140-400 (K /uL) Final MPV 09/16/2023 10:49:41 9.3 6.6-11.1 ( fL) Final Performing Location [facility] [place] [address]
--- OUTSIDE RECORDS SUMMARY | 2024-01-20 22:05 | External Medical Summary ---
Author Name Unknown Address Unknown Organization K09:[facility] [place] [address] Laboratory Report Ordering Provider Test Date Status JOY ROCHE 09/16/2023 10:49:41 Final Observation Date Value Abnormality Reference (Units ) Status Phosphate 09/16/2023 10:49:41 4.1 2.5-4.8 (m g/dL) Final Performing Location [facility] [place] [address]
--- OUTSIDE RECORDS SUMMARY | 2024-01-20 22:05 | External Medical Summary | Summary of Care ---
Author Name Unknown Organization [facility] Address [address] [place] [address] Phone [phone] Care Team Providers Care Donor Services Team Leader Name Role Phone Ferny Sr DO Primary Care Provider [phone] Encounter Details Date Type Department Care Team (Late st Contact Info) Description 09/19/2023 Documentation [facility] Engineer Allergies Active Allergy Reactions Criticality Noted Date Comments Clarithromycin Other (Please comment) Low 1 "Burning mouth" sensation. documented as of this encounter (statuses as of 09/19/2023) Medications Medication Sig Dispensed Refills Start Date [...] 01/11/2020 Active Additional Information Patient taking differently:2 [place] Each NostrilHS, Indications: allergies, Reported on 08/13/2022 [...] mouth daily. 0 Active GNP Calcium 1200 6542-8299 MG-UNIT Oral Tablet Chewable Take 1 Tablet [...] pe 2 diabetes, HbA1C goal < 8% ([facility] [...] ons:Type 2 diabetes, HbA1C goal < 8% ([facility] [...] morning. 100 Tablet 3 08/04/2023 Active [place] 32G X 4 MMIndications:Type 2 diabetes mellitus with peripheral neuropathy ([facility]) Use as directed. Once daily 100 [...] Extended ReleaseIndications:C hronic diastolic congestive heart failure ([facility]) Take 1 Tablet by [...] as of this encounter (statuses as of 09/19/2023) Active Problems Problem Noted Date Diagnosed Date [...] and oxygen 06/08 Overview: with 4 LPM [facility] Last Assessment & Plan: Compliant with BiPAP ADVANCE DIRECTIVE INFORMATION 12/07/2004 Overview: Yes, Patient instructed to provide copy of advance directive for provider to review and to be scanned into Electronic Medical Record Trigeminal neuralgia Mixed rhinitis Irritable bowel syndrome documented as of this encounter (statuses as of 09/19/2023) Resolved Problems Problem Noted Date Diagnosed Date Resolved Date Diabetes mellitus with stage 3 chronic kidney disease 07/15/2022 07/15/2022 Diabetes mellitus 07/15/2022 09/10/2022 Hypertensive heart disease without CHF 01/04/2022 07/15/2022 Open-angle glaucoma 06/14/2021 10/16/19 Atherosclerosis of [place] co ronary artery without angina pectoris 03/26/2021 [...] as of this encounter (statuses as of 09/19/2023) Immunizations Name Administration Dates Next Due COVID-19 mRNA, LNP-s, No Pre serve, 2-Dose Series ([employer]) 05/14/2021,09/21/2020,08/31/2020 COVID-19, LNP-s, No Preserve , Jose-sucrose, Ages 12+ ([employer]) 12/11/2021 COVID-19, MRNA-LNP, 23-24, P F, 30 MCG/0.3 mL, 12 YRS AND ABOVE, IM ([facility]) 04/29/2023 Covid-19, Mrna, Lnp-s, Pf, B [...] encounter Progress Notes * [facility] Engineer - 09/19/2023 2:45 PM EDT Did patient attend session 2 [...] 11/07/2023 9:00 AM EDT Procedure Only Endoscopy, [place] [address] [place] [address] Landon Kline MD [address] [place] [address] 12/03/2023 10:40 AM EDT Office Visit Family Practice [address] [place] [address] [address] [facility] [place] [address] Ferny Sr DO 293 [facility] [place] [address] 12/26/2023 11:00 AM EDT Office Visit Cardiology, [facility] [address] [place] [address] [facility] Cardiology [facility] [address] [place] [address] 02/24/2024 11:00 AM EDT Laboratory Laboratory [facility] [address] [place], [place] [phone] Na[facility] 200 [facility] [address] [place], [place] [address] 02/24/2024 12:00 PM EDT Office Visit Hematology/Oncology [facility] [place] [address] [place] [phone] Michelle Ruffin CRNP 400 [facility] [place] [address] 04/02/2024 10:30 AM EDT Office Visit Sleep Disorders Ctr [facility] 132 [facility] [place] [phone] Mara Archibald CRNP 132 [facility] [place] [address] 05/11/2024 11:15 AM EST Office Visit Dermatology [facility] [place] [address] [facility] [address] [place] [address] [place] Huertas MD 200 [facility] [place] [address] Health Maintenance Due Date Last Done Comments [...] Screening 07/29/2024 07/29/2023 CKD HGB USE SMARTSET 50446 09/15/202409/15, 09/16/2023, 08/26/2023, Additional history exists CKD PHOS USE SMARTSET 20668 09/15/202409/04, 08/26/2023, 11/21/2022, Additional history exists O2 ASSESSMENT COMPLETED IN PAST YEAR FOR COPD 09/15/2024 09/16/2023 DXA Scan 08/18/2025 08/18/2023, 03/2022, 10/19/2012, Additional history exists DTaP,Tdap,and Td Vaccines (3 - Td or Tdap) 09/17/2027 09/16/2017, 04/06/2008, 11/06/1995 Pneumococcal Vaccine: 65+ Years Completed 10/14/2014, 04/02/2011, 12/21/2002 Zoster Vaccines Completed 09/15/2019, 10/2018, 06/14/2009 LUNG CANCER SCREENING - USE SMARTSET 04946 Completed 05/16/2021, 02/17/2020, 02/11/2019, Additional history exists COLONOSCOPY-EVERY 5 YRS AGES 18-100 Discontinued 09/04/2022, 02/13/2015, 08/19/2011, Additional history exists Influenza Vaccine (FLU shot) Completed 03/18/2023, 03/13/2022, 03/26/2021, Additional history exists COVID-19 Vaccine Completed 04/29/2023, 02/2022, 12/11/2021, Additional history exists VITAMIN D LEVEL ONCE IN A LIFETIME-USE SMARTSET# [id number] Completed 08/26/2023, 07/15/2022, 03/13/2022, Additional history exists [...] this encounter Medical Devices Implanted Type Area Water Quality Analyst Device Identifier Shelf Expiration Date Model / Serial / Lot Lens Intraoc 18.5 - [id number] - [id number] Implanted:Qty: 1 on 04/03/2021 by Irvin Canchola MD at OR [facility] Left: Eye BAUSCH [employer] LOMB 01/03/2026 [id number] / [id number] / [id number] Lens Intraoc 18.5 - [id number] - [id number] Implanted:Qty: 1 on 04/10/2021 by Irvin Canchola MD at OR [facility] Right: Eye BAUSCH & LOMB 01/03/2026 [id number] / [id number] documented as of this encounter Care Teams Donor Services Team Leader Relationship Specialty Start Date End Date Ferny Sr DO [address] [place] [address] PCP - General Internal Medicine 08/31/18 documented as of this encounter
--- OUTSIDE RECORDS SUMMARY | 2024-01-20 22:05 | External Medical Summary | Summary of Care ---
Author Name Unknown Organization [facility] Address [address] [place] [address] Phone [phone] Care Team Providers Care Hand Meat Salter Name Role Phone Ferny Sr DO Primary Care Provider [phone] Reason for Visit * Reason Comments Infusion Reclast * Episode Based Medications (Routine) - Authorized Specialty Diagnoses / Procedures Referred By Contac t Referred To Contact Diagnoses half-way current use of aromatase inhibitor Osteoporosis without current pathological fracture, unspecified osteoporosis type Procedures [place] ZOLEDRONIC ACID 1MG Michelle Ruffin CRNP [address] [place] [address] Anc Hem/Onc [address] [address] Referral ID Status Reason Start Date Expiration Date V isits Requested Visits Authorized [id number] Authorized 09/01/2023 07/06/2099 [id number] Encounter Details Date Type Department Care Team (Latest Contact Info) Description 09/16/2023 11:45 AM EDT Hem/Onc Treatment Hematology/Oncology Treatment, [address] [address] adjunct faculty for medical terminology current use of aromatase inhibitor*; Osteoporosis without current pathological fracture, unspecified osteoporosis type Allergies Active Allergy Reactions Criticality Noted Date Comments Clarithromycin Other (Please comment) Low 1 "Burning mouth" sensation. documented as of this encounter (statuses as of 09/16/2023) Medications Medication Sig Dispensed Refills Start Date End Date Status AkvoTOUCH ULTRA SYSTEM W/DEVICE KITIndications:DM type 2, goal A1c below 7 test once daily; dx 250.00 1 Kit 0 10/14/2012 Active VITAMIN C 500 MG PO TABS Take 1 Tablet by mouth daily at noon. 0 11/04/2013 Active AkvoTOUCH ULTRASOFT LANCETS MISCIndications:DM type 2, goal A1c below 7 test once daily; dx 250.00 1 Box 5 11/12/2013 Active fluticasone (FLONASE) 50 MCG/ACT nasal spray Administer 2 Sprays into each nostril 2 times a day. 16 g 5 01/11/2020 Active Additional Information Patient taking differently:2 [place] Each NostrilHS, Indications: allergies, Reported on 08/13/2022 [...] mouth daily. 0 Active GNP Calcium 1200 6508-4210 MG-UNIT Oral Tablet Chewable Take 1 Tablet [...] of sleep. 1 Each 0 04/10/2022 Active DashTouch Ultra Blue In Vitro Strip (Glucose Blood)Indications:Ty [...] gangrene, without long-term current use of insulin ([facility]),Type 2 diabetes mellitus with peripheral neuropathy ([facility]),Type 2 DM with CKD stage 3 and hypertension ([facility]),Type 2 diabetes, HbA1C goal < 8% ([facility]) Take 1 Tablet by mouth in the morning. 100 Tablet 2 08/04/2023 Active Letrozole 2.5 MG Oral Tablet (Femara)Indications: Malignant neoplasm of right breast in female, estrogen receptor positive, unspecified site of breast ([facility]) Take 1 Tablet by mouth in the morning. 100 Tablet 3 08/04/2023 Active Pen Winston 32G X 4 MMIndications:Type 2 diabetes mellitus with peripheral neuropathy ([facility]) Use as directed. 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 08/1009/ 2010 HTN, goal below 150/90 05/24/2009 Overview: [...] and oxygen 06/08 Overview: with 4 M [facility] Last Assessment & Plan: [...] 07/15/2022 Open-angle glaucoma 06/14/2021 10/16/19 Atherosclerosis of [place] ronary artery without angina pectoris 03/26/2021 [...] mRNA, LNP-s, No Pre serve, 2-Dose Series ([facility]) 05/14/2021,09/21/2020,08/31/2020 COVID-19, LNP-s, No Preserve , Jose-sucrose, Ages 12+ ([facility]) 12/11/2021 COVID-19, MRNA-LNP, 23-24, P F, 30 MCG/0.3 mL, 12 YRS AND ABOVE, IM ([facility] [facility]) 04/29/2023 Covid-19, Mrna, Lnp-s, Pf, B ivalent, 30 Mcg, IM, 12 yrs and above ([facility]) 05/14/2022 Pneumococcal Conjugate Vacc, 13 Valent (Prevnar) [...] removed intact. Pt to follow up with MD. Discharged in stable condition. documented in this encounter Plan of Treatment Upcoming Encounters Date Type Department Care Team (Late st Contact Info) Description 11/07/2023 9:00 AM EDT Procedure Only Endoscopy, [facility] 132 [facility] [place] [address] Landon Kline MD [facility] [place] [address] 12/03/2023 10:40 AM EDT Office Visit Family Practice [address] [place] [address] [address] [place] [address] Ferny Sr DO 293 [place] [address] 12/26/2023 11:00 AM EDT Office Visit Cardiology, Health system 132 [place] [address] [facility] 132 [facility] [place] [address] 02/24/2024 11:00 AM EDT Laboratory Laboratory [facility] 200 [facility] [place] [phone] Trish Salgado [facility] 200 [facility] [place] [address] 02/24/2024 12:00 PM EDT Office Visit Hematology/Oncology [facility] 200 [facility] [place] [address] Michelle Ruffin CRNP 400 [facility] [place] [id number] 04/02/2024 10:30 AM EDT Office Visit Sleep Disorders Ctr [facility] [address] [place] [phone] Mara Archibald CRNP [address] [place] [address] 05/11/2024 11:15 AM EST Office Visit Dermatology [facility] [place] 200 [facility] [place] [address] Kingston Huertas MD 200 [facility] [place] [address] Health Maintenance Due Date Last Done Comments [...] Additional history exists Depression Screening 07/29/2024 07/29/2023 O2 ASSESSMENT COMPLETED IN PAST YEAR FOR COPD 08/26/2024 08/26/2023 CKD HGB USE SMARTSET 11238 09/15/202409/15, 09/16/2023, 08/26/2023, Additional history exists CKD PHOS USE SMARTSET 34359 09/15/202409/04, 08/26/2023, 11/21/2022, Additional history exists DXA Scan 08/18/2025 08/18/2023, 03/2022, 10/19/2012, Additional history exists DTaP,Tdap,and Td Vaccines (3 - Td or Tdap) 09/17/2027 09/16/2017, 04/06/2008, 11/06/1995 Pneumococcal Vaccine: 65+ Years Completed 10/14/2014, 04/02/2011, 12/21/2002 Zoster Vaccines Completed 09/15/2019, 10/2018, 06/14/2009 LUNG CANCER SCREENING - USE SMARTSET 17910 Completed 05/16/2021, 02/17/2020, 02/11/2019, Additional history exists COLONOSCOPY-EVERY 5 YRS AGES 18-100 Discontinued 09/04/2022, 02/13/2015, 08/19/2011, Additional history exists Influenza Vaccine (FLU shot) Completed 03/18/2023, 03/13/2022, 03/26/2021, Additional history exists COVID-19 Vaccine Completed 04/29/2023, 02/2022, 12/11/2021, Additional history exists VITAMIN D LEVEL ONCE IN A LIFETIME-USE SMARTSET# 88468 Completed 08/26/2023, 07/15/2022, 03/13/2022, Additional history exists [...] this encounter Medical Devices Implanted Type Area Ed Special Education Teacher Device Identifier Shelf Expiration Date Model / Serial / Lot Lens Intraoc 18.5 - [id number] - [id number] Implanted:Qty: 1 on 04/03/2021 by Irvin Canchola MD at OR [facility] Left: Eye [employer]OM[employer] 01/03/2026 [id number] / [id number] / [id number] Lens Intraoc 18.5 - [id number] - [id number] Implanted:Qty: 1 on 04/10/2021 by Irvin Canchola MD at OR [facility] Right: Eye [employer]OMB 01/03/2026 [id number] / [id number] / [id number] documented as of this encounter Visit Diagnoses Diagnosis adjunct faculty for medical terminology current use of aromatase inhibitor- Primary Use of aromatase inhibitors Osteoporosis without current pathological fracture, unspecified osteoporosis type documented in this encounter Administered Medications Active Administered Medications - up to 3 most recent administrations Medication Order MAR Action Action Date Dose Rate Site diphenhydrAMINE (Benadryl) inj 50 mg 50 mg, IV Push, ONCE PRN Other, Hypersensitivity Reaction, Starting on Fri09/16/23 at 1105, Until Fri09/17/23 at 1104, For 24 hours EPINEPHrine 1 MG/ML inj 0.3 mg 0.3 mg, Intramuscular, ONCE PRN Other, Hypersensitivity Reaction or Anaphylaxis, Starting on Fri09/16/23 at 1105, Until Fri09/17/23 at 1104, For 24 hours hEParin 100 UNIT/ML Lock Flush inj 500 Units 500 Units (5 mL), IV Lock, PRN Other, IV Flush, Starting on Fri09/16/23 at 1105, Until Fri09/17/23 at 1104, For 24 hours, Do not flush if lock, PICC, or central line not in place; IV infusing or unable to flush. Hydrocortisone Sod Suc (PF) (Solu-Cortef) inj 100 mg 100 mg, IV Push, ONCE PRN Other, Hypersensitivity Reaction, Starting on Fri09/16/23 at 1105, Until Fri09/17/23 at 1104, For 24 hours NSS infusion 500 mL, Intravenous, at 50 mL/hr, CONTINUOUS, Starting on Fri09/16/23 at 1215, Until Fri09/16/23 at 2214 Start Infusion 09/16/2023 11:19 AM EDT 500 mL 50 mL/hr oxygen GAS Inhalation, OXYGEN, First dose on Fri09/16/23 at 1145, Until Discontinued, Device/Managed by: Low Flow Device, Goal SPO2 (%): 91-95, Starting Device: Nasal Cannula, Initial Flow Rate (LPM): 2, Lowest Support: Nasal Cannula: Flow 0-6 LPM. Titrate up/down by 1 LPM., Higher Support: Non-Rebreather (NRB) Mask: Minimum of 10 LPM. Titrate to maintain bag inflation., Titration Interval: Q2 minutes and as needed., Notify Provider: For sudden DECREASE in resting SPO2 to less than 85% and when escalating delivery device., Wean patient off Oxygen when the oxygen saturation is greater than or equal to 93% sodium chloride 0.9 % flush central line 10 mL 10 mL, IV Push, PRN Other, IV Flush, Starting on Fri09/16/23 at 1105, Until Fri09/17/23 at 1104, For 24 hours, Do not flush if lock, PICC, or central line not in place; IV infusing or unable to flush. Inactive Administered Medications - up to 3 most recent administrations Medication Order MAR Action Action Date Dose Rate Site Zoledronic Acid (Reclast) 5 mg in 100 mL PREMIX ivpb 5 mg, IV Piggyback, ONCE, 1 dose, On Fri09/16/23 at 1245 Start Infusion 09/16/2023 11:19 AM EDT 5 mg 400 mL/hr documented in this encounter Care Teams Hand Meat Salter Relationship Specialty Start Date End Date Ferny Sr DO [address] [place] [address] PCP - General Internal Medicine 08/31/18 documented as of this encounter
--- OUTSIDE RECORDS SUMMARY | 2024-01-20 22:05 | External Medical Summary ---
Author Name Unknown Address Unknown Organization K09:[facility] [id number] [place] [address] Laboratory Report Ordering Provider Test Date Status JOY ROCHE 09/16/2023 10:49:41 Final Observation Date Value Abnormality Reference (Units ) Status BUN 09/16/2023 10:49:41 20 6-20 (mg/dL) Final Creatinine 09/16/2023 10:49:41 1.1 Above high normal 0.5-1.0 (mg/dL) Final Glomerular filtration rate/1.73 sq M.predicted [Volume Rate/Area] in Serum, Plasma or Blood by Creatinine-based formula (CKD-EPI) 09/16/2023 10:49:41 53 Below low normal >=60 (mL/min) Final eGFR is calculated based on the CKD-EPI 2020 equation SODIUM 09/16/2023 10:49:41 144 135-146 (m mol/L) Final Potassium 09/16/2023 10:49:41 4.1 3.5-5.1 (m mol/L) Final Cl 09/16/2023 10:49:41 101 98-107 (mm ol/L) Final CO2 09/16/2023 10:49:41 32 22-32 (mmo l/L) Final Anion gap 09/16/2023 10:49:41 11 7-15 (mmol /L) Final Glucose 09/16/2023 10:49:41 155 Above high normal 70 -120 (mg/dL) Final Albumin 09/16/2023 10:49:41 3.9 3.8-5.0 (g /dL) Final AST (Aspartate aminotransferase) 09/16/2023 10:49:41 12 10-35 (U/L) Fin al Alk Phos 09/16/2023 10:49:41 154 Above high normal 35 -130 (U/L) Final Bilirubin, Total 09/16/2023 10:49:41 <0.2 <=1 .2 (mg/dL) Final Calcium 09/16/2023 10:49:41 9.9 8.4-10.2 ( mg/dL) Final Protein 09/16/2023 10:49:41 6.9 6.0-8.3 (g /dL) Final ALT (Alanine aminotransferase) 09/16/2023 10:49:41 10 10-35 (U/L) Jabair kay Performing Location [facility] [address] [place] [address]
--- OUTSIDE RECORDS SUMMARY | 2024-01-20 22:05 | External Medical Summary ---
Author Name Unknown Address Unknown Organization K01:[facility] [place] [address] [place] [address] Laboratory Report Ordering Provider Test Date Status LEOBARDO HINDS 09/16/2023 10:49:41 Final Observation Date Value Abnormality Reference (Units ) Status LDL, (direct) 09/16/2023 10:49:41 83 <=129 (mg/dL) Final LDL Cholesterol Reference Ra nges (mg/dL):
<70 Target level for high risk ASCVD patient
<100 Optimal for general population
100-129 Near optimal for general population
130-159 Borderline high
160-189 High
>=190 Very high Performing Location [facility] - [address] [place] [address]
--- OUTSIDE RECORDS SUMMARY | 2024-01-20 22:05 | External Medical Summary | Summary of Care ---
Author Name Unknown Organization [facility] Address [address] [place] [address] Phone [phone] Care Team Providers Care Powertrain Design Engineer Name Role Phone ElnoamFerny DO Primary Care Provider [phone] Encounter Details Date Type Department Care Team (Latest Contact Info) Description 08/06/2023 Medication Management [facility] [address] [place], [place] [phone] Betty Topete, [facility] [address] [place] [address] Referred for management of medication therapy* Allergies Active Allergy Reactions Criticality Noted Date Comments Clarithromycin Other (Please comment) Low 1 "Burning mouth" sensation. documented as of this encounter (statuses as of 09/18/2023) Medications Medication Sig Dispensed Refills Start Date [...] 0 Active Additional Information Patient taking differently:2 [place] Each NostrilHS, Indications: allergies, Reported on 08/13/2022 [...] mouth daily. 0 Active GNP Calcium 1200 0657-7692 MG-UNIT Oral Tablet Chewable Take 1 Tablet [...] ype 2 diabetes, HbA1C goal < 8% ([facility] [...] ions:Type 2 diabetes, HbA1C goal < 8% ([facility]),Type 2 DM with CKD stage 3 and hypertension ([facility]) Inject 30 Units under the skin every evening. 15 mL 3 3 Active Atorvastatin Calcium 80 MG Oral Tablet [...] positive, unspecified site of breast ([facility]) Take 1 Tablet by mouth in the morning. 100 Tablet 3 4 Active Folic Acid 1 MG Oral Tablet Take 1 Tablet by mouth in the morning. 0 08/25/19 24 Discontinu ed(Refill) carBAMazepine ER 400 MG Oral Tablet Extended Release 12 Hour (Tegretol-Xr) Take 1 Tablet by mouth in the morning and 1 Tablet before bedtime. 0 3 08/25/19 24 Discontinu ed(Refill) amLODIPine Besylate 2.5 MG Oral Tablet (Norvasc)Indication s:Type 2 DM with CKD stage 3 and hypertension ([facility]) TAKE ONE TABLET BY MOUTH EVERY DAY IN THE MORNING 100 Tablet 3 3 08/13/19 24 Discontinu ed(Refill) Lisinopril 40 MG Oral TabletIndications:H TN, goal below 130/80 take 1 tablet by mouth every morning 90 Tablet 3 3 09/11/19 24 Discontinu ed(Refill) Potassium Chloride ER 10 MEQ Oral Tablet Extended ReleaseIndications: Chronic diastolic congestive heart failure ([facility]) take 1 tablet by mouth every morning 30 Tablet 5 3 08/20/19 24 Discontinu ed(Refill) Ezetimibe 10 MG Oral Tablet (Zetia)Indications: Dyslipidemia, goal LDL below 70,Hyperlipidemia with target LDL less than 70,PAD (peripheral artery disease) ([facility]) take 1 tablet by mouth every morning 90 Tablet 3 3 09/11/19 24 Discontinu ed(Refill) BD Pen Needle Short U/F 31G X 8 MM (Insulin Pen Needle)Indications: Type 2 diabetes mellitus with hemoglobin A1c goal of less than 7.0% ([facility]),Body mass index (BMI) of 40.0 to 44.9 in adult ([facility]),Type 2 diabetes mellitus with diabetic peripheral angiopathy without gangrene, without long-term current use of insulin ([facility]),Type 2 diabetes mellitus with peripheral neuropathy ([facility]),Type 2 DM with CKD stage 3 and hypertension ([facility]),Type 2 diabetes, HbA1C goal < 8% ([facility]) USE TO INJECT INSULIN DAILY DIRECTED 100 Each 3 3 08/12/19 24 Discontinu ed(Medicat ion/Dose Changed) Labetalol HCl 200 MG Oral Tablet (Normodyne)Indicati ons:HTN, goal: symptom mgmt only,Resistant hypertension,HTN, goal below 150/90,Fatigue, unspecified type take 1 tablet by mouth twice a day 180 Tablet 3 3 09/01/19 24 Discontinu ed(Refill) Abrysvo 120 MCG/0.5ML Intramuscular Solution Reconstituted (RSV Pre-Fusion F A&B Vac Rc)Indications:Ne ed for RSV immunization Inject 0.5 mL into a large muscle once for 1 dose. 1 Each 0 3 08/06/19 24 Discontinu ed(Medicat ion List Clean Up) Ozempic (1 MG/DOSE) 4 MG/3ML Subcutaneous Solution Pen-injector (Semaglutide (1 MG/DOSE))Indication s:Type 2 DM with CKD stage 3 and hypertension ([facility]) inject 1 milligram subcutaneously every week 9 mL 3 3 08/25/19 24 Discontinu ed(Refill) Montelukast Sodium 10 MG Oral Tablet (Singulair)Indicati ons:Allergic rhinitis take 1 tablet by mouth every evening 90 Tablet 3 3 08/25/19 24 Discontinu ed(Refill) Gabapentin 300 MG Oral Capsule (Neurontin)Indicati ons:neuropathy Take 1 Capsule by mouth in the morning and 1 Capsule at noon and 1 Capsule in the evening and 1 Capsule before bedtime. One capsule in the afternoon and two capsule at bedtime. 0 3 09/01/19 24 Discontinu ed(Refill) DULoxetine HCl 60 MG Oral Capsule Delayed Release Particles (Cymbalta) Take 1 Capsule by mouth at bedtime. 0 3 08/20/19 24 Discontinu ed(Refill) oxyCODONE-Acetamino phen 5-325 MG Oral Tablet (Percocet)Indicatio ns:Disc disorder of lumbar region Take 1 Tablet by mouth every 8 hours as needed for Pain, Moderate. 90 Tablet 0 3 08/26/19 24 Discontinu ed(Refill) documented as of this encounter (statuses as of 09/18/2023) Active Problems Problem Noted Date Diagnosed Date [...] BIPAP and oxygen 06/08 Overview: with 4 [facility] Last Assessment & Plan: Compliant with BiPAP ADVANCE DIRECTIVE INFORMATION 12/07/2004 Overview: Yes, Patient instructed to provide copy of advance directive for provider to review and to be scanned into Electronic Medical Record Trigeminal neuralgia Mixed rhinitis Irritable bowel syndrome documented as of this encounter (statuses as of 09/18/2023) Resolved Problems Problem Noted Date Diagnosed Date Resolved Date Diabetes mellitus with stage 3 chronic kidney disease 07/15/2022 07/15/2022 Diabetes mellitus 07/15/2022 09/10/2022 Hypertensive heart disease without CHF 01/04/2022 07/15/2022 Open-angle glaucoma 06/14/2021 10/16/19 Atherosclerosis of [place] co ronary artery without angina pectoris 03/26/2021 [...] as of this encounter (statuses as of 09/18/2023) Immunizations Name Administration Dates Next Due COVID-19 mRNA, LNP-s, No Pre serve, 2-Dose Series (General Specific) 05/14/2021,09/21/2020,08/31/2020 COVID-19, LNP-s, No Preserve , Jose-sucrose, Ages 12+ (General Specific) 12/11/2021 COVID-19, MRNA-LNP, 23-24, P F, 30 MCG/0.3 mL, 12 YRS AND ABOVE, IM [facility] 04/29/2023 Covid-19, Mrna, Lnp-s, Pf, B ivalent, [...] Team (Late st Contact Info) Description 09/19/2023 11:00 AM EDT Office Visit Family Practice 65 [facility] 293 [place] [phone] [employer], Health Undercutter Fam Prac 65 [facility] 293 [place] [address] 11/07/2023 9:00 AM EDT Procedure Only Endoscopy, [place] 132 [facility] [place] [address] Landon Kline MD 132 [facility] [place] [address] 12/03/2023 10:40 AM EDT Office Visit Family Practice [address] [place] [address] 293 [place] [address] Ferny Sr, 293 [place] [address] 12/26/2023 11:00 AM EDT Office Visit Cardiology, [facility] 132 [facility] [place] [address] [facility] [address] 02/24/2024 11:00 AM EDT Laboratory Laboratory [facility] 200 [facility] [place] [phone] [place] [address] [place] [address] 02/24/2024 12:00 PM EDT Office Visit Hematology/Oncology [facility] [address] [place] [phone] Michelle Ruffin CRNP [address] [place] [address] [place] [address] 04/02/2024 10:30 AM EDT Office Visit [facility]tr [facility] [place] [phone] Mara Archibald CRNP 132 [facility] [place] [address] 05/11/2024 11:15 AM EST Office Visit Dermatology [facility] 200 [facility] [place] [address] [place] Huertas MD 200 [facility] [place] [address] Health Maintenance Due Date Last Done Comments [...] Screening 07/29/2024 07/29/2023 CKD HGB USE SMARTSET 63391 09/15/202409/15, 09/16/2023, 08/26/2023, Additional history exists CKD PHOS USE SMARTSET 11249 09/15/202409/04, 08/26/2023, 11/21/2022, Additional history exists O2 ASSESSMENT COMPLETED IN PAST YEAR FOR COPD 09/15/2024 09/16/2023 DXA Scan 08/18/2025 08/18/2023, 02/0 03/2022, 10/19/2012, Additional history exists DTaP,Tdap,and Td Vaccines (3 - Td or Tdap) 09/17/2027 09/16/2017, 04/06/2008, 11/06/1995 Pneumococcal Vaccine: 65+ Years Completed 10/14/2014, 04/02/2011, 12/21/2002 Zoster Vaccines Completed 09/15/2019, 10/2018, 06/14/2009 LUNG CANCER SCREENING - USE SMARTSET 60108 Completed 05/16/2021, 02/17/2020, 02/11/2019, Additional history exists COLONOSCOPY-EVERY 5 YRS AGES 18-100 Discontinued 09/04/2022, 02/13/2015, 08/19/2011, Additional history exists Influenza Vaccine (FLU shot) Completed 03/18/2023, 03/13/2022, 03/26/2021, Additional history exists COVID-19 Vaccine Completed 04/29/2023, 02/2022, 12/11/2021, Additional history exists VITAMIN D LEVEL ONCE IN A LIFETIME-USE SMARTSET# 48442 Completed 08/26/2023, 07/15/2022, 03/13/2022, Additional history exists [...] this encounter Medical Devices Implanted Type Area Mounter Clarinets Device Identifier Shelf Expiration Date Model / Serial / Lot Lens Intraoc 18.5 - [id number] - [id number] Implanted:Qty: 1 on 04/03/2021 by Irvin Canchola MD at OR [facility] Left: Eye [employer]OM[employer] 01/03/2026 [id number] / [id number] / [id number] Lens Intraoc 18.5 - [id number] - [id number] Implanted:Qty: 1 on 04/10/2021 by Irvin Canchola MD at OR [facility] Right: Eye [employer] LOMB 01/03/2026 [id number] / [id number] / [id number] documented as of this encounter Visit Diagnoses Diagnosis Referred for management of medication therapy- Primary Encounter for long-term (current) use of other medications documented in this encounter Care Teams Powertrain Design Engineer Relationship Specialty Start Date End Date Ferny Sr DO [address] [facility] [place] [address] PCP - General Internal Medicine 08/31/18 documented as of this encounter
[2024-01-20] MEDS: MELATONIN 3 MG TAB PO SCH (23:15)
--- OUTSIDE RECORDS SUMMARY | 2024-01-21 05:42 | External Medical Summary | Summary of Care ---
Author Name Unknown Organization [facility] Address [address] [place] [address] Phone [phone] Care Team Providers Care Lever Miller Name Role Phone Ferny Sr DO Primary Care Provider [phone] Reason for Visit * Reason Onset Date Comments Advice 01/20/2024 Encounter Details Date Type Department Care Team (Late st Contact Info) Description 01/20/2024 Telephone Family Practice [address] [facility] [address] [place] [phone] Ferny Sr DO [address] [place] [address] Advice Allergies Active Allergy Reactions Criticality Noted Date Comments Clarithromycin Other (Please comment) Low 1 "Burning mouth" sensation. documented as of this encounter (statuses as of 01/20/2024) Medications Medication Sig Dispensed Refills Start Date [...] 01/11/2020 Active Additional Information Patient taking differently:2 Flanagan Each NostrilHS, Indications: allergies, Reported on 08/13/2022 [...] by mouth daily. Active GNP Calcium 1200 5742-8940 MG-UNIT Oral Tablet Chewable Take 1 Tablet [...] bedtime. 200 Tablet 3 10/28/2023 Active [place] 32G X 4 MMIndications:Type 2 diabetes mellitus with peripheral neuropathy ([facility]) Use once daily with Lantus as [...] as of this encounter (statuses as of 01/20/2024) Active Problems Problem Noted Date Diagnosed Date [...] as of this encounter (statuses as of 01/20/2024) Resolved Problems Problem Noted Date Diagnosed Date Resolved Date Diabetes mellitus with stage 3 chronic kidney disease 07/15/2022 07/15/2022 Diabetes mellitus 07/15/2022 09/10/2022 Hypertensive heart disease without CHF 01/04/2022 07/15/2022 Class 2 severe obesity with serious comorbidity and body mass index (BMI) of 39.0 to 39.9 in adult 01/04/2022 12/03/2023 Open-angle glaucoma 06/14/2021 10/16/19 Atherosclerosis of [place] co ronary artery without angina pectoris 03/26/2021 [...] as of this encounter (statuses as of 01/20/2024) Immunizations Name Administration Dates Next Due COVID-19 mRNA, LNP-s, No Pre serve, 2-Dose Series ([employer]) 05/14/2021,09/21/2020,08/31/2020 COVID-19, LNP-s, No Preserve , Jose-sucrose, Ages 12+ (Pfizer) 12/11/2021 COVID-19, MRNA-LNP, 23-24, P F, 30 MCG/0.3 mL, 12 YRS AND ABOVE, IM ([facility]) 04/29/2023 Covid-19, Mrna, Lnp-s, Pf, [...] Telephone Encounter - Sasha Balderas LPN - 01/20/2024 10:52 AM EDT Patient is aware and will comply. Thank you * Telephone Encounter - Erma Rose DO - 01/20/2024 10:48 AM EDT BP very high and with symptoms. Would advise ED. * Telephone Encounter - Sasha Balderas LPN - 01/20/2024 10:30 AM EDT Patient called in states dizzy and elevated bp. Has increased ozempic dose this past Friday to 2 mg. Lantus dose is 30 units in the evening, thinks she remembers Dr Sr saying to plan decrease of insulin with increase of ozempic but did not. Last night bp 198/87 Current bp is 194/88 pulse is 64 Blood sugar currently is 134, had cran grape juice. January 18 at 3 pm was 97 would have 4 hours post a meal. Does have a persistent headache, allergies are acting up, Denies chest pain or sob. States dizziness started a day or so ago. Asked patient as to when dizziness is, states worse when she is just sitting. Constant dizziness, moderate amount. documented in this encounter Plan of Treatment Upcoming Encounters Date Type Department Care Team (Latest Contact Info) Description 02/04/2024 9:30 AM EDT Office Visit Orthopaedics [facility] [address] [id number] Gwyn Rayo MD [address] [place] [address] 02/24/2024 11:00 AM EDT Laboratory Laboratory [facility] [place] [address] [place] [phone] Trish Salgado [facility] [address] [place] [address] 02/24/2024 12:00 PM EDT Office Visit Hematology/Oncolog y [facility] Naomi [place] [address] [place] [phone] Michelle Ruffin CRNP [address] [facility] [place] [address] 03/02/2024 2:30 PM EDT Hospital Encounter ENDO [facility], Endoscopy Room [facility] [address] [place] [phone] Landon Kline MD 132 [facility] [place] [address] 03/02/2024 2:30 PM EDT - 03/02/2024 3:00 PM EDT Surgery ENDO [facility], Endoscopy Room [facility] [address] [place] [phone] Landon Kline MD [address] [facility] [place] [address] COLONOSCOPY FLEXIBLE PROXIMAL DIAGNOSTIC 04/02/2024 10:30 AM EDT Office Visit Sleep Disorders Ctr [facility] [address] [place] [phone] Mara Archibald CRNP [address] [place] [address] 04/05/2024 10:40 AM EDT Office Visit Family Practice [address] [place] [address] [address] [place] [address] Ferny Sr, DO [address] [place] [address] 05/11/2024 11:15 AM EST Office Visit Dermatology Yvette Salgado [place] [address] [facility] [place] [address] Kingston Huertas MD [address] [facility] [place] [address] Scheduled Procedures Name Priority Associated Diagnoses Date/Ti me COLONOSCOPY FLEXIBLE PROXIMAL DIAGNOSTIC History of colonic polyps 03/02/2024 2:30 PM EDT Health Maintenance Due Date Last Done Comments Alpha-1 Antitrypsin 12/02/1963 COVID-19 Vaccine ( season) 2023 04/29/2023, 05/14/2022, 12/11/2021, Additional history exists *CXR OR CT FOR COPD EVER 01/18/2024 Influenza Vaccine (FLU shot) (#1) 2024 03/18/2023, 03/13/2022, 03/26/2021, Additional history exists GFR 03/18/2024 09/16/2023, 08/08, 08/08/2023, Additional history exists HbA1c 06/04/2024 12/03/2023, 07/08, 03/18/2023, Additional history exists Depression Screening 07/29/2024 07/29/2023 CKD HGB USE SMARTSET 71722 09/15/202409/15, 09/16/2023, 08/26/2023, Additional history exists CKD PHOS USE SMARTSET 53924 09/15/202409/04, 08/26/2023, 11/21/2022, Additional history exists O2 [...] D LEVEL ONCE IN A LIFETIME-USE SMARTSET# 07056 Completed 08/26/2023, 07/15/2022, 03/13/2022, Additional history exists [...] this encounter Medical Devices Implanted Type Area Doll Wig Maker Device Identifier Shelf Expiration Date Model / Serial / Lot Lens Intraoc 18.5 - [id number] - [id number] Implanted:Qty: 1 on 04/03/2021 by Irvin Canchola MD at [facility] Left: Eye [employer] 01/03/2026 [id number] / [id number] / [id number] Lens Intraoc 18.5 - [id number] - [id number] Implanted:Qty: 1 on 04/10/2021 by Irvin Canchola MD at OR [facility] Right: Eye [employer] 01/03/2026 [id number] / [id number] / [id number] documented as of this encounter Care Teams Lever Miller Relationship Specialty Start Date End Date Ferny Sr DO [address] [place] [address] PCP - General Internal Medicine 12/18/23 documented as of this encounter
[2024-01-21 06:04] LABS: Hematocrit (blood only) 39.4 % (37.0-47.0); Hemoglobin 12.7 g/dl (12.0-16.0); Mean Corpuscular Hemoglobin 31.1 pg (25.0-34.0); Mean Corpuscular Hgb Conc 32.2 g/dL (32.0-36.0); Mean Corpuscular Volume 96.3 fL (80.0-100.0); Mean Platelet Volume 10.6 fL (9.4-12.4); Platelet Count 189 K/uL (130-400); RDW Coefficient of Variation 13.6 % (11.5-14.5); RDW Standard Deviation 48.2 fL (36.4-46.3); Red Blood Count 4.09 M/uL (4.20-5.40); White Blood Count 7.58 K/ul (4.8-10.8)
[2024-01-21] MEDS: amLODIPine BESYLATE 5 MG TAB PO SCH (08:00)
[2024-01-21] MEDS: ASPIRIN 81 MG ECTAB PO SCH (08:00)
[2024-01-21] MEDS: FOLIC ACID 1 MG TAB PO SCH (08:01)
[2024-01-21] MEDS: CYANOCOBALAMIN (B-12) 500 MCG TABLET PO SCH (08:01)
[2024-01-21] MEDS: POTASSIUM CHLORIDE 10 MEQ TABCR PO SCH (08:01)
[2024-01-21] MEDS: EZETIMIBE 10 MG TAB PO SCH (08:01)
[2024-01-21] MEDS: ATORVASTATIN 40 MG TAB PO SCH (08:01)
[2024-01-21] MEDS: LETROZOLE 2.5 MG TAB PO SCH (08:01)
[2024-01-21] MEDS: lisinopril 40 MG TAB PO SCH (08:01)
[2024-01-21] MEDS: DOCUSATE SODIUM 100 MG CAP PO SCH (08:02)
[2024-01-21] MEDS: GABAPENTIN 300 MG CAP PO SCH (08:03)
[2024-01-21] MEDS: LIDOCAINE 5% 1 PATCH TD SCH (08:09)
[2024-01-21 08:22] LABS: Albumin Globulin Ratio 1.3 (0.9-2); Albumin Level 3.9 gm/dl (3.4-5.0); BUN Creatinine Ratio 14.6 (10-20); Bilirubin,Total 0.4 mg/dl (0.2-1.0); Calcium 9.9 mg/dl (8.6-10.3); Creatinine Clr Calc Pharmacy 56.3 ml/min; Est GFR (African American) 65.7 ml/min; Est GFR (Non-African American) 56.6 ml/min; Magnesium 1.9 mg/dl (1.7-2.4); Phosphorus 5.4 mg/dl (2.5-4.9); Potassium 3.4 mmol/L (3.5-5.1); Total Protein 6.9 gm/dl (6.0-8.3)
[2024-01-21] MEDS ORDERED: amLODIPine BESYLATE 5 MG TAB PO SCH (09:00)
[2024-01-21] MEDS: POTASSIUM CHLORIDE CRTAB 20 MEQ TABCR PO STA (09:02)
--- NOTE | 2024-01-21 11:03 | Electrocardiogram Report ---
Test Reason : Blood Pressure : / mmHG Vent. Rate : 068 BPM Atrial Rate : 068 BPM P-R Int : 196 ms QRS Dur : 092 ms QT Int : 402 ms P-R-T Axes : 057 065 094 degrees QTc Int : 427 ms Normal sinus rhythm Poor R wave progression, consider anterior DE vs. lead placement vs. LVH Abnormal ECG When compared with ECG of 08-NOV-2022 20:03, No significant change was found Confirmed by Faizan Vael ([id number]) on 01/21/2024 11:03:23 AM Referred By: REFERRED SELF Confirmed By:Faizan Vale
--- NOTE | 2024-01-21 14:21 | Pharmacy Report ---
Pharmacy Glycemic Short Note 2 - Date of Service January 21, 2024 - Glycemic Short BSG Results (Last 24 hours): 01/20/24 01/21/24 01/21/24 20:39 05:28 07:01 Glucose Cancelled Cancelled POC Glucose 134 H 01/21/24 01/21/24 01/21/24 07:44 08:13 11:58 Glucose 93 POC Glucose 97 122 H OUTPATIENT ANTIDIABETIC REGIMEN: * Lantus 30 units SC HS * Jardiance 25 mg PO AM * Ozempic 2 mg SC every Friday * HbA1c pending for 01/22/24 ASSESSMENT: 01/20 * Rama received 20 units of basal insulin yesterday * Fasting BSG this AM below goal range, basal insulin decreased 10% * Unable to assess Novolog at this time, not given until lunchtime today 01/19 * 78 yo F admitted on 01/20/24 secondary to hypertensive urgency. Pharmacy has been consulted to assist with inpatient glycemic management. Patient is a Type 2 diabetic as an outpatient. Please refer to outpatient regimen and most recent HbA1c above. * Ordered a T2DM diet. Will follow to see if she tolerates diet. * Serum BSG was 136 mg/dL earlier today. * Will start Novolog based on weight/stress of 2. Lantus will be reduced by ~33% from home dose and given at bedtime. PLAN FOR INPATIENT GLYCEMIC CONTROL: * Hold outpatient oral diabetes medications * Basal insulin * Lantus 18 units SC HS * Bolus insulin * NovoLog per scale ACHS or Q6hrs while NPO * Goal Range: Low 110 mg/dL - High 140 mg/dL * Correction Factor: 25 mg/dL/unit * Nutritional / Prandial insulin per carb ratio of 1 unit per 8 grams CHO consumed
--- NOTE | 2024-01-21 14:44 | Hospitalist Progress Note ---
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 Hypertensive Urgency H/O Uncontrolled HTN BP 221/90 upon presentation to ED. Pt did not receive any anti-hypertensives in ED prior to sign-out. Head CT negative, head CTA negative - no large vessel occlusion or intracranial aneurysm. Chest CTA negative for any acute abnormalities - no evidence of PE or aortic dissection. Continue w/ PRN 5mg IV hydralazine for SBP>160. 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 Amlodipine 2.5 mg p.o. daily ii. Labetalol 200 mg p.o. twice daily iii. Lisinopril 40 mg daily her amlodipine has been increased to 5 g daily blood pressure remains on the slightly upper side she denies any symptoms Will increase amlodipine dose to 5 mg p.o. daily starting tomorrow AM. Pt also taking Lasix 40 mg p.o. twice daily [employer] LEVEL [employer] DEVELOPER - will hold for now. AM labs including CBC, CMP, mag and phos. Closely monitor BP trends w/ continuous cardiac monitoring. (2) Neck stiffness: Plan: Neck Stiffness & Headache Pt c/o neck stiffness and headache on admission. Will start pt on po 5mg Flexeril BID PRN and scheduled Tylenol. Neck CTA revealed the following: i. Negative for stenosis involving the carotid or vertebral arteries. ii. Advanced atherosclerotic changes seen in right carotid bulb with large ulcerated plaque. neck stiffness is better with Flexeril does not have any signs and or symptoms of meningism/meningitis (3) Headache: Plan: has been improving Plan other significant medical conditions remains stable and are as below: DM Type II Hold [employer] LEVEL [employer] DEVELOPER diabetic medications; initiate SSI regimen, Hgb A1c 6.3 on 12/02. BSG checks ACHS; glycemic pharmacy consulted for recommendations/input. CAD, H/O CVA s/p Bilateral Carotid Endarterectomy [2004]: Can continue MID LEVEL NET DEVELOPER aspirin and statin therapy. Pt follows alexandre/ [facility]. History of R Breast Cancer Pt follows w/ Dr. Wilcox [[facility]]. Had partial mastectomy and sentinel axillary lymph node biopsy on 06/06/2021. Pt also completed XRT (20 treatments) at [facility] 07/24/21-08/17/21. Pt on letrozole (7-year course) --> will continue this while she is admitted. COPD Patient does report that she has supplemental oxygen at home to use as needed. Pt 98% SpO2 on RA at time of admission. Will order oxygen via [place] as needed for SpO2 < 90%. Pt on montelukast 10mg po HS [employer] LEVEL NET DEVELOPER - will continue. Can also continue PRN albuterol inhaler, patient not c/o SOB on admission. CHAZ on BiPAP: Can continue BiPAP HS - ordered. Pt follows w/ [facility]. Other Chronic Medical Conditions: Diabetic peripheral neuropathy, seasonal allergies --> Can continue MID LEVEL NET DEVELOPER medications for these specific conditions. DVT Prophylaxis: SCDs/TEDs - For now Code Status: FULL CODE PCP: Ferny Sr DO Disposition: Admit to Med/Surg w/ Telemetry Admission and Anticipated Discharge Date Admission Date: January 20, 2024 Subjective 01/21/2024 the patient was seen and examined in medical telemetry unit she has been feeling much better Complains to have minimal headache but denies any other symptoms Her blood pressure seems to be reasonably stable Review of Systems Review of Systems: all systems reviewed and are unremarkable except as noted below Physical Exam Physical Exam: sitting on a chair without any acute distress Constitutional: well developed, well nourished, + ill appearing and + obese Eyes: PERRL, conjunctivae normal, anicteric sclerae ENMT: external ear and nose normal, oropharynx normal Neck: trachea midline, no thyromegaly Respiratory: no respiratory distress Auscultation: lungs clear to auscultation bilaterally and + diminished lung sounds Cardiovascular: Rate/Rhythm: regular rate and regular rhythm; not tachycardic Heart Sounds: normal S1 and normal S2; no murmur Extremities: + edema ( trace edema bilaterally) Gastrointestinal (Abdomen): Inspection/Auscultation: + abdomen distended and normal bowel sounds Percussion/Palpation: abdomen soft; abdomen nontender Musculoskeletal: no acute arthritis involving any of the joints Skin: no rashes, warm and dry Neurologic: normal touch/pain/proprioception and moves all extremities; no focal motor deficits Psychiatric: A+Ox3, euthymic affect Lymphatic: no cervical or axillary lymphadenopathy Results & Data Results & Data Vital Signs (Past 12 Hours) Vital Signs Temp Pulse Pulse Resp BP Pulse Ox O2 Del Method 01/21/24 14:08 72 01/21/24 11:08 36.9 C 67 20 154/77 H 94 Room Air 01/21/24 09:45 133/81 95 Nasal Cannula 01/21/24 07:42 37.0 C 77 18 186/72 H 91 Room Air 01/21/24 07:35 72 01/21/24 02:42 67 18 132/68 97 BiPAP O2 Flow Rate 01/21/24 14:08 01/21/24 11:08 01/21/24 09:45 3 01/21/24 07:42 01/21/24 07:35 01/21/24 02:42 4 Laboratory Results Short CBC 01/21/24 Range/Units 05:28 WBC 7.58 (4.8-10.8) K/ul Hgb 12.7 (12.0-16.0) g/dl Hct 39.4 (37.0-47.0) % Plt Count 189 (130-400) K/uL BMP 01/21/24 01/21/24 01/21/24 05:28 07:01 07:44 Sodium Cancelled Cancelled 140 Potassium Cancelled Cancelled 3.4 L Chloride Cancelled Cancelled 98 Carbon Dioxide Cancelled Cancelled 34 H BUN Cancelled Cancelled 14 Creatinine Cancelled Cancelled 0.96 Glucose Cancelled Cancelled 93 Calcium Cancelled Cancelled 9.9 Liver Function 01/21/24 01/21/24 01/21/24 Range/Units 05:28 07:01 07:44 Total Bilirubin Cancelled Cancelled 0.4 AST Cancelled Cancelled 13 ALT Cancelled Cancelled 10 Alkaline Phosphatase Cancelled Cancelled 137 H Albumin Cancelled Cancelled 3.9 Medications Administered Current Inpatient Medications Acetaminophen (Acetaminophen 500 Mg Tab) 1,000 mg PO TID STEVEN Stop: 02/19/24 20:59 Last Admin: 01/21/24 13:44 Dose: 1,000 mg Albuterol (Albuterol Hfa 8 Gm Inhaler) 2 puffs INH QIDR PRN PRN Reason: Shortness Of Breath Or Wheezin Stop: 02/19/24 18:20 Amlodipine Besylate (Amlodipine Besylate 5 Mg Tab) 5 mg PO DAILY STEVEN Stop: 02/20/24 08:59 Last Admin: 01/21/24 08:00 Dose: 5 mg Aspirin (Aspirin 81 Mg Ectab) 81 mg PO DAILY STEVEN Stop: 02/20/24 08:59 Last Admin: 01/21/24 08:00 Dose: 81 mg Atorvastatin Calcium (Atorvastatin 40 Mg Tab) 80 mg PO QAM STEVEN Stop: 02/20/24 08:59 Last Admin: 01/21/24 08:01 Dose: 80 mg Carbamazepine (Carbamazepine Xr 200 Mg Tabcr) 400 mg PO BID STEVEN Stop: 02/19/24 20:59 Last Admin: 01/21/24 07:59 Dose: 400 mg Cyanocobalamin (Cyanocobalamin (B-12) 500 Mcg Tablet) 1,000 mcg PO DAILY STEVEN Stop: 02/20/24 08:59 Last Admin: 01/21/24 08:01 Dose: 1,000 mcg Cyclobenzaprine HCl (Cyclobenzaprine Hcl 5 Mg Tab) 5 mg PO BID PRN PRN Reason: Muscle Spasm Stop: 02/19/24 18:20 Last Admin: 01/21/24 09:01 Dose: 5 mg Dextrose (Dextrose 50% 50 Ml Syringe) 25 - 50 ml IV UD PRN; Protocol PRN Reason: Hypoglycemia Protocol Stop: 02/19/24 18:20 Docusate Sodium (Docusate Sodium 100 Mg Cap) 200 mg PO DAILY STEVEN Stop: 02/20/24 08:59 Last Admin: 01/21/24 08:02 Dose: 200 mg Duloxetine HCl (Duloxetine Hcl 60 Mg Cap) 60 mg PO HS STEVEN Stop: 02/19/24 20:59 Last Admin: 01/20/24 20:28 Dose: 60 mg Ezetimibe (Ezetimibe 10 Mg Tab) 10 mg PO DAILY STEVEN Stop: 02/20/24 08:59 Last Admin: 01/21/24 08:01 Dose: 10 mg Fexofenadine HCl (Fexofenadine Hcl 180 Mg Tab) 180 mg PO HS STEVEN Stop: 02/19/24 20:59 Last Admin: 01/20/24 20:28 Dose: 180 mg Fluticasone Propionate (Fluticasone Propionate Na Spr 16 Gm Btl) 2 sprays NA [facility] Stop: 02/19/24 20:59 Last Admin: 01/20/24 20:23 Dose: Not Given Folic Acid (Folic Acid 1 Mg Tab) 1 mg PO DAILY [facility] Stop: 02/20/24 08:59 Last Admin: 01/21/24 08:01 Dose: 1 mg Gabapentin (Gabapentin 300 Mg Cap) 300 mg PO QAM [facility] Stop: 02/20/24 08:59 Last Admin: 01/21/24 08:03 Dose: 300 mg Glucagon (Glucagon For Inj 1 Mg Vial) 1 mg SQ UD PRN; Protocol PRN Reason: Hypoglycemia Protocol Stop: 02/19/24 18:20 Glucose (Glucose 40% Gel 15 Gm Tube) 15 - 30 gm PO UD PRN; Protocol PRN Reason: Hypoglycemia Protocol Stop: 02/19/24 18:20 Glucose (Glucose 10 Tab/Tube) 4 - 8 tab PO UD PRN; Protocol PRN Reason: Hypoglycemia Treatment Stop: 02/19/24 18:20 Hydralazine HCl (Hydralazine Hcl 20 Mg/Ml Vial) 5 mg IV Q4H PRN PRN Reason: Blood Pressure - High Stop: 02/19/24 18:20 Last Admin: 01/20/24 20:33 Dose: 5 mg Insulin Aspart (Insulin Aspart Per Unit Charge) 0 units SC [facility]; Protocol Stop: 02/19/24 20:59 Last Admin: 01/21/24 13:04 Dose: 2 units Insulin Glargine (Lantus Per Unit Charge) 18 units SC [facility]; Protocol Stop: 02/20/24 20:59 Labetalol HCl (Labetalol Hcl 200 Mg Tab) 200 mg PO BID [facility] Stop: 02/19/24 20:59 Last Admin: 01/21/24 07:59 Dose: 200 mg Letrozole ([facility]ole 2.5 Mg Tab) [facility] Stop: 02/20/24 08:59 Last Admin: 01/21/24 08:01 Dose: 2.5 mg Lidocaine (Lidocaine 5% 1 Patch) [facility] Stop: 02/20/24 08:59 Last Admin: 01/21/24 08:09 Dose: 1 patch Lisinopril (Lisinopril 40 Mg Tab) [facility] Stop: 02/20/24 08:59 Last Admin: 01/21/24 08:01 Dose: 40 mg Melatonin (Melatonin 3 Mg Tab) 9 mg PO HS [facility] Stop: 02/19/24 20:59 Last Admin: 01/20/24 23:15 Dose: 9 mg Miscellaneous (Remove Lidoderm Patch) 1 each N/A DAILY@2100 [facility] Stop: 02/19/24 20:59 Last Admin: 01/20/24 21:08 Dose: Not Given Miscellaneous (Carbohydrates For Hypoglycemia ) 15 - 30 gm PO UD PRN PRN Reason: Hypoglycemia Protocol Stop: 02/19/24 18:20 Miscellaneous Information (Pharmacy Glycemic Mgmt Consult) 1 each N/A UD PRN PRN Reason: Consult Stop: 02/19/24 18:20 Montelukast Sodium (Montelukast Sodium 10 Mg Tablet) 10 mg PO [facility] Stop: 02/19/24 20:59 Last Admin: 01/20/24 20:30 Dose: 10 mg Ondansetron HCl (Ondansetron Inj 2 Mg/Ml 2 Ml Vial) 4 mg IV Q6H PRN PRN Reason: Nausea Stop: 02/19/24 18:20 Polyethylene Glycol (Polyethylene (Miralax) 17 Gm Pack) 17 gm PO DAILY PRN PRN Reason: Constipation Stop: 02/19/24 18:20 Potassium Chloride (Potassium Chloride 10 Meq Tabcr) [facility] Stop: 02/20/24 08:59 Last Admin: 01/21/24 08:01 Dose: 10 meq (3) Headache Headache type: other headache syndrome Qualified Code(s): G44.89 - Other headache syndrome
[2024-01-21] MEDS: LANTUS PER UNIT CHARGE SC SCH (20:52)
[2024-01-22 06:24] LABS: Basophils # (auto) 0.02 K/uL (0.00-0.20); Basophils % (auto) 0.4 %; Eosinophils # (auto) 0.07 K/uL (0.00-0.50); Eosinophils % (auto) 1.4 %; Hematocrit (blood only) 38.7 % (37.0-47.0); Hemoglobin 12.5 g/dl (12.0-16.0); Immature Granulocytes # (auto) 0.01 K/uL (0.01-0.20); Immature Granulocytes % (auto) 0.2 %; Lymphocytes # (auto) 1.13 K/uL (1.20-3.40); Lymphocytes % (auto) 22.6 %; Mean Corpuscular Hemoglobin 31.3 pg (25.0-34.0); Mean Corpuscular Hgb Conc 32.3 g/dL (32.0-36.0); Mean Platelet Volume 9.6 fL (9.4-12.4); Monocytes # (auto) 0.59 K/uL (0.11-0.59); Monocytes % (auto) 11.8 %; Neutrophils # (auto) 3.19 K/uL (1.40-6.50); Neutrophils % (auto) 63.6 %; Platelet Count 174 K/uL (130-400); RDW Coefficient of Variation 13.6 % (11.5-14.5); RDW Standard Deviation 48.5 fL (36.4-46.3); Red Blood Count 3.99 M/uL (4.20-5.40); White Blood Count 5.01 K/ul (4.8-10.8)
[2024-01-22 06:26] LABS: Calcium 9.2 mg/dl (8.6-10.3); Est GFR (African American) 58.2 ml/min; Est GFR (Non-African American) 50.3 ml/min; Magnesium 1.9 mg/dl (1.7-2.4); Potassium 3.8 mmol/L (3.5-5.1)
[2024-01-22 07:22] LABS: Estimated Average Glucose 140 mg/dl; Hemoglobin A1C 6.5 % (4.5-5.6)
[2024-01-22 07:46] VITALS: RESP 16
[2024-01-22 12:35] VITALS: BP 125/65; PULSE 59; TEMP 98.6; O2SAT 92
--- NOTE | 2024-01-22 13:02 | Hospitalist Progress Note ---
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 Hypertensive Urgency H/O Uncontrolled HTN BP 221/90 upon presentation to ED. Pt did not receive any anti-hypertensives in ED prior to sign-out. Head CT negative, head CTA negative - no large vessel occlusion or intracranial aneurysm. Chest CTA negative for any acute abnormalities - no evidence of PE or aortic dissection. Continue w/ PRN 5mg IV hydralazine for SBP>160. She is on the following BP medications DIAGNOSTIC TECH: i. Amlodipine 2.5 mg p.o. daily ii. Labetalol 200 mg p.o. twice daily iii. Lisinopril 40 mg daily her amlodipine has been increased to 5 g daily blood pressure remains on the slightly upper side she denies any symptoms Will increase amlodipine dose to 5 mg p.o. daily starting tomorrow AM. Pt also taking Lasix 40 mg p.o. twice daily DIAGNOSTIC TECH - will hold for now. AM labs including CBC, CMP, mag and phos. Closely monitor BP trends w/ continuous cardiac monitoring. blood pressure is well-controlled she has had PT and OT and will be discharged home this afternoon (2) Neck stiffness: Plan: Neck Stiffness & Headache Pt c/o neck stiffness and headache on admission. Will start pt on po 5mg Flexeril BID PRN and scheduled Tylenol. Neck CTA revealed the following: i. Negative for stenosis involving the carotid or vertebral arteries. ii. Advanced atherosclerotic changes seen in right carotid bulb with large ulcerated plaque. neck stiffness is better with Flexeril does not have any signs and or symptoms of meningism/meningitis no more neck is stiffness (3) Headache: Plan: has been improving headache is resolved Plan other significant medical conditions remains stable and are as below: DM Type II Hold DIAGNOSTIC TECH diabetic medications; initiate SSI regimen, Hgb A1c 6.3 on 12/02. BSG checks ACHS; glycemic pharmacy consulted for recommendations/input. CAD, H/O CVA s/p Bilateral Carotid Endarterectomy [2003]: Can continue DIAGNOSTIC TECH aspirin and statin therapy. Pt follows w/ [facility]. History of R Breast Cancer Pt follows w/ Dr. Wilcox [[facility]]. Had partial mastectomy and sentinel axillary lymph node biopsy on 06/06/2021. Pt also completed XRT (20 treatments) at [facility] 07/24/21-08/17/21. Pt on letrozole (7-year course) --> will continue this while she is admitted. COPD Patient does report that she has supplemental oxygen at home to use as needed. Pt 98% SpO2 on RA at time of admission. Will order oxygen via NC as needed for SpO2 < 90%. Pt on montelukast 10mg po HS DIAGNOSTIC TECH - will continue. Can also continue PRN albuterol inhaler, patient not c/o SOB on admission. CHAZ on BiPAP: Can continue BiPAP HS - ordered. Pt follows w/ [facility]. Other Chronic Medical Conditions: Diabetic peripheral neuropathy, seasonal allergies --> Can continue DIAGNOSTIC TECH medications for these specific conditions. DVT Prophylaxis: SCDs/TEDs - For now Code Status: FULL CODE PCP: Ferny Sr, Disposition: Admit to Med/Surg w/ Telemetry will be discharged home this afternoon Admission and Anticipated Discharge Date Admission Date: January 20, 2024 Subjective 01/21/2024 the patient was seen and examined in medical telemetry unit she has been feeling much better Complains to have minimal headache but denies any other symptoms Her blood pressure seems to be reasonably stable 01/22/2024 the patient was seen and examined in medical telemetry unit She has been feeling much better and wants to be discharged denies any symptoms, no more headache and no other associated symptoms Review of Systems Review of Systems: all systems reviewed and are unremarkable except as noted below Physical Exam Physical Exam: sitting on a chair without any acute distress Constitutional: well developed, well nourished, + ill appearing and + obese Eyes: PERRL, conjunctivae normal, anicteric sclerae ENMT: external ear and nose normal, oropharynx normal Neck: trachea midline, no thyromegaly Respiratory: no respiratory distress Auscultation: lungs clear to auscultation bilaterally and + diminished lung sounds Cardiovascular: Rate/Rhythm: regular rate and regular rhythm; not tachycardic Heart Sounds: normal S1 and normal S2; no murmur Extremities: + edema ( trace edema bilaterally) Gastrointestinal (Abdomen): Inspection/Auscultation: + abdomen distended and normal bowel sounds Percussion/Palpation: abdomen soft; abdomen nontender Skin: no rashes, warm and dry Neurologic: normal touch/pain/proprioception and moves all extremities; no focal motor deficits Psychiatric: A+Ox3, euthymic affect Lymphatic: no cervical or axillary lymphadenopathy Results & Data Results & Data Vital Signs (Past 12 Hours) Vital Signs Temp Pulse Pulse Resp BP Pulse Ox O2 Del Method 01/22/24 12:34 37.0 C 59 L 16 125/65 92 Room Air 01/22/24 11:33 Room Air, BiPAP 01/22/24 07:54 57 L 01/22/24 07:45 36.9 C 65 16 151/70 H 91 Room Air 01/22/24 03:55 37.0 C 59 L 18 125/67 94 CPAP Laboratory Results Short CBC 01/22/24 Range/Units 05:20 WBC 5.01 (4.8-10.8) K/ul Hgb 12.5 (12.0-16.0) g/dl Hct 38.7 (37.0-47.0) % Plt Count 174 (130-400) K/uL BMP 01/22/24 05:20 Sodium 139 Potassium 3.8 Chloride 99 Carbon Dioxide 33 H BUN 17 Creatinine 1.06 Glucose 94 Calcium 9.2 Medications Administered Current Inpatient Medications Acetaminophen (Acetaminophen 500 Mg Tab) 1,000 mg PO TID [facility] Stop: 02/19/24 20:59 Last Admin: 01/22/24 08:47 Dose: 1,000 mg Albuterol (Albuterol Hfa 8 Gm Inhaler) 2 puffs INH QIDR PRN PRN Reason: Shortness Of Breath Or Wheezin Stop: 02/19/24 18:20 Amlodipine Besylate (Amlodipine Besylate 5 Mg Tab) 5 mg PO BID [facility] Stop: 02/21/24 20:59 Aspirin (Aspirin 81 Mg Ectab) 81 mg PO DAILY [facility] Stop: 02/20/24 08:59 Last Admin: 01/22/24 08:44 Dose: 81 mg Atorvastatin Calcium (Atorvastatin 40 Mg Tab) 80 mg PO QAM [facility] Stop: 02/20/24 08:59 Last Admin: 01/22/24 08:45 Dose: 80 mg Carbamazepine (Carbamazepine Xr 200 Mg Tabcr) 400 mg PO BID [facility] Stop: 02/19/24 20:59 Last Admin: 01/22/24 08:44 Dose: 400 mg Cyanocobalamin (Cyanocobalamin (B-12) 500 Mcg Tablet) 1,000 mcg PO DAILY [facility] Stop: 02/20/24 08:59 Last Admin: 01/22/24 08:43 Dose: 1,000 mcg Cyclobenzaprine HCl (Cyclobenzaprine Hcl 5 Mg Tab) 5 mg PO BID PRN PRN Reason: Muscle Spasm Stop: 02/19/24 18:20 Last Admin: 01/22/24 08:41 Dose: 5 mg Dextrose (Dextrose 50% 50 Ml Syringe) 25 - 50 ml IV UD PRN; Protocol PRN Reason: Hypoglycemia Protocol Stop: 02/19/24 18:20 Docusate Sodium (Docusate Sodium 100 Mg Cap) 200 mg PO DAILY [facility] Stop: 02/20/24 08:59 Last Admin: 01/22/24 08:44 Dose: Not Given Duloxetine HCl (Duloxetine Hcl 60 Mg Cap) 60 mg PO HS [facility] Stop: 02/19/24 20:59 Last Admin: 01/21/24 20:43 Dose: 60 mg Ezetimibe (Ezetimibe 10 Mg Tab) 10 mg PO DAILY [facility] Stop: 02/20/24 08:59 Last Admin: 01/22/24 08:44 Dose: 10 mg Fexofenadine HCl (Fexofenadine Hcl 180 Mg Tab) 180 mg PO HS [facility] Stop: 02/19/24 20:59 Last Admin: 01/21/24 20:44 Dose: 180 mg Fluticasone Propionate (Fluticasone Propionate Na Spr 16 Gm Btl) 2 sprays NA HS [facility] Stop: 02/19/24 20:59 Last Admin: 01/21/24 20:42 Dose: 2 sprays Folic Acid (Folic Acid 1 Mg Tab) 1 mg PO DAILY [facility] Stop: 02/20/24 08:59 Last Admin: 01/22/24 08:43 Dose: 1 mg Gabapentin (Gabapentin 300 Mg Cap) 300 mg PO QAM [facility] Stop: 02/20/24 08:59 Last Admin: 01/22/24 08:45 Dose: 300 mg Glucagon (Glucagon For Inj 1 Mg Vial) 1 mg SQ UD PRN; Protocol PRN Reason: Hypoglycemia Protocol Stop: 02/19/24 18:20 Glucose (Glucose 40% Gel 15 Gm Tube) 15 - 30 gm PO UD PRN; Protocol PRN Reason: Hypoglycemia Protocol Stop: 02/19/24 18:20 Glucose (Glucose 10 Tab/Tube) 4 - 8 tab PO UD PRN; Protocol PRN Reason: Hypoglycemia Treatment Stop: 02/19/24 18:20 Hydralazine HCl (Hydralazine Hcl 20 Mg/Ml Vial) 5 mg IV Q4H PRN PRN Reason: Blood Pressure - High Stop: 02/19/24 18:20 Last Admin: 01/20/24 20:33 Dose: 5 mg Insulin Aspart (Insulin Aspart Per Unit Charge) 0 units [facility]; Protocol Stop: 02/19/24 20:59 Last Admin: 01/22/24 12:47 Dose: Not Given Insulin Glargine (Lantus Per Unit Charge) 18 units SC [facility]; Protocol Stop: 02/20/24 20:59 Last Admin: 01/21/24 20:52 Dose: 18 units Labetalol HCl (Labetalol Hcl 200 Mg Tab) 200 mg PO BID [facility] Stop: 02/19/24 20:59 Last Admin: 01/22/24 08:44 Dose: 200 mg Letrozole (Letrozole 2.5 Mg Tab) 2.5 mg PO [facility] Stop: 02/20/24 08:59 Last Admin: 01/22/24 08:43 Dose: 2.5 mg Lidocaine (Lidocaine 5% 1 Patch) 1 patch TD [facility] Stop: 02/20/24 08:59 Last Admin: 01/22/24 08:45 Dose: Not Given Lisinopril (Lisinopril 40 Mg Tab) 40 mg PO [facility] Stop: 02/20/24 08:59 Last Admin: 01/22/24 08:45 Dose: 40 mg Melatonin (Melatonin 3 Mg Tab) 9 mg PO [facility] Stop: 02/19/24 20:59 Last Admin: 01/21/24 23:44 Dose: 9 mg Miscellaneous (Remove Lidoderm Patch) 1 each N/A DAILY@2100 [facility] Stop: 02/19/24 20:59 Last Admin: 01/21/24 20:44 Dose: 1 each Miscellaneous (Carbohydrates For Hypoglycemia ) 15 - 30 gm PO UD PRN PRN Reason: Hypoglycemia Protocol Stop: 02/19/24 18:20 Miscellaneous Information (Pharmacy Glycemic Mgmt Consult) 1 each N/A UD PRN PRN Reason: Consult Stop: 02/19/24 18:20 Montelukast Sodium (Montelukast Sodium 10 Mg Tablet) 10 mg PO HS [facility] Stop: 02/19/24 20:59 Last Admin: 01/21/24 20:43 Dose: 10 mg Ondansetron HCl (Ondansetron Inj 2 Mg/Ml 2 Ml Vial) 4 mg IV Q6H PRN PRN Reason: Nausea Stop: 02/19/24 18:20 Polyethylene Glycol (Polyethylene (Miralax) 17 Gm Pack) 17 gm PO DAILY PRN PRN Reason: Constipation Stop: 02/19/24 18:20 Potassium Chloride (Potassium Chloride 10 Meq Tabcr) 10 meq PO QAM [facility] Stop: 02/20/24 08:59 Last Admin: 01/22/24 08:50 Dose: 10 meq (3) Headache Headache type: other headache syndrome Qualified Code(s): G44.89 - Other headache syndrome
[2024-01-22] MEDS ORDERED: LANTUS PER UNIT CHARGE SC SCH (21:00)
[2024-01-22] MEDS ORDERED: amLODIPine BESYLATE 5 MG TAB PO SCH (21:00)
[2024-01-23] MEDS ORDERED: amLODIPine BESYLATE 5 MG TAB PO SCH (09:00)
--- NOTE | 2024-01-23 15:31 | Discharge Summary ---
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 History obtained from patient and associated chart review. Patient states that she has been experiencing some lightheadedness since yesterday. She denies any dizziness or recent falls, just mentions she feels "kind of off." Due to the ongoing lightheadedness, patient decided to take her blood pressure this morning. She notes that her systolic BP was in the low 200s approximately 15 minutes AFTER taking all of her BP medications this morning. Her checked her blood sugar as well, which was fine. The patient contacted her PCP's office [[facility], Dr. Sr] to report her elevated BP and they instructed her to come to the ED for further evaluation. She denies any nausea or vomiting, but does report an ongoing headache since yesterday as well. She reports that the headache is more so localized to both temporal regions and feels more like a "banding sensation" around her head. She denies any recent head trauma. Patient has been taking some extra strength Tylenol and Percocet (which was originally prescribed for back pain) without much relief of the headache. She is also complaining of some left-sided neck stiffness and pain, which she mentions has been ongoing for the past 2 weeks. Patient does report that she has supplemental oxygen at home to use as needed. She mentions that she has not used her oxygen recently. She was originally p rescribed the oxygen secondary to COPD and history of pulmonary histoplasmosis - patient has followed with [facility] in the past. Patient reports that her oxygen saturation is typically around 87% at home - she states this is her "baseline" oxygen saturation level. She reports compliance with her BiPAP for sleep apnea - follows with [facility]. Patient denies any chest pain, SOB, abdominal pain or bowel/urinary habit issues. Admission Exam Per Admitting Provider Physical Exam: General: NAD, sitting up in bed, very pleasant, conversing appropriately. A+Ox3, euthymic affect. HEENT: Normocephalic, atraumatic. Conjunctivae normal, anicteric sclerae, oropharynx normal. Respiratory: Normal respiratory effort, lungs clear to auscultation, no wheeze, rales, rhonchi. No accessory muscle use. Cardiovascular: Regular rate, rhythm, no murmur, normal peripheral pulses, no BLE edema. Vessels: No JVD. Abdomen/GI: Normal bowel sounds, soft, nontender, no hepatosplenomegaly. Extremities/Musculoskeletal: No cyanosis or clubbing, extremities motor strength intact bilaterally, moves all extremities. Neurologic: PERRL, EOMI, accommodation nl, no face palsy, no dysarthria, CN's II-XI not formally tested but appear grossly intact bilaterally. Skin: No rashes, normal color, warm/dry. Principal Diagnosis hypertensive urgency Discharge Exam sitting on a chair without any acute distress Constitutional well developed, well nourished, + ill appearing and + obese Eyes PERRL, conjunctivae normal, anicteric sclerae ENMT external ear and nose normal, oropharynx normal Neck trachea midline, no thyromegaly Respiratory no respiratory distress Auscultation: lungs clear to auscultation bilaterally and + diminished lung sounds Cardiovascular Rate/Rhythm: regular rate and regular rhythm; not tachycardic Heart Sounds: normal S1 and normal S2; no murmur Extremities: + edema ( trace edema bilaterally) Gastrointestinal (Abdomen) Inspection/Auscultation: + abdomen distended and normal bowel sounds Percussion/Palpation: abdomen soft; abdomen nontender Skin no rashes, warm and dry Neurologic normal touch/pain/proprioception and moves all extremities; no focal motor deficits Psychiatric A+Ox3, euthymic affect Lymphatic no cervical or axillary lymphadenopathy Discharge Data Allergies Allergy/AdvReac Type Severity Reaction Status Date / Time clarithromycin AdvReac Intermediate Mouth Verified 01/20/24 15:07 burning Consultations 01/20/24 15:56 ED Decision to Admit Stat Ordered Studies 01/20/24 12:57 CT angio chest PE protocol Stat CT head/brain wo con Stat CTA head w con [CT angio head w con] Stat CTA neck with con [CT angio neck with con] Stat Hospital Course (1) Hypertensive urgency: Rama Alvarez is a 78y/o F with PMHx of 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 Hypertensive Urgency H/O Uncontrolled HTN BP 221/90 upon presentation to ED. Pt did not receive any anti-hypertensives in ED prior to sign-out. Head CT negative, head CTA negative - no large vessel occlusion or intracranial aneurysm. Chest CTA negative for any acute abnormalities - no evidence of PE or aortic dissection. Continue w/ PRN 5mg IV hydralazine for SBP>160. She is on the following BP medications PALM GATHERER: i. Amlodipine 2.5 mg p.o. daily ii. Labetalol 200 mg p.o. twice daily iii. Lisinopril 40 mg daily her amlodipine has been increased to 5 g daily blood pressure remains on the slightly upper side she denies any symptoms Will increase amlodipine dose to 5 mg p.o. daily starting tomorrow AM. Pt also taking Lasix 40 mg p.o. twice daily [facility]M GATHERER - will hold for now. AM labs including CBC, CMP, mag and phos. Closely monitor BP trends w/ continuous cardiac monitoring. blood pressure is well-controlled she has had PT and OT and will be discharged home this afternoon (2) Neck stiffness: Neck Stiffness & Headache Pt c/o neck stiffness and headache on admission. Will start pt on po 5mg Flexeril BID PRN and scheduled Tylenol. Neck CTA revealed the following: i. Negative for stenosis involving the carotid or vertebral arteries. ii. Advanced atherosclerotic changes seen in right carotid bulb with large ulcerated plaque. neck stiffness is better with Flexeril does not have any signs and or symptoms of meningism/meningitis no more neck is stiffness (3) Headache: has been improving headache is resolved Plan other significant medical conditions remains stable and are as below: DM Type II Hold PALM GATHERER diabetic medications; initiate SSI regimen, Hgb A1c 6.3 on 12/02. BSG checks ACHS; glycemic pharmacy consulted for recommendations/input. CAD, H/O CVA s/p Bilateral Carotid Endarterectomy [2003]: Can continue PALM GATHERER aspirin and statin therapy. Pt follows w/ [facility]. History of R Breast Cancer Pt follows w/ Dr. Wilcox [[facility]]. Had partial mastectomy and sentinel axillary lymph node biopsy on 06/06/2021. Pt also completed XRT ([address] [facility] 07/24/21-08/17/21. Pt on letrozole (7-year course) --> will continue this while she is admitted. COPD Patient does report that she has supplemental oxygen at home to use as needed. Pt 98% SpO2 on RA at time of admission. Will order oxygen via [place] as needed for SpO2 < 90%. Pt on montelukast 10mg po HS PALM GATHERER - will continue. Can also continue PRN albuterol inhaler, patient not c/o SOB on admission. CHAZ on BiPAP: Can continue BiPAP HS - ordered. Pt follows w/ [facility]. Other Chronic Medical Conditions: Diabetic peripheral neuropathy, seasonal allergies --> Can continue PALM GATHERER medications for these specific conditions. DVT Prophylaxis: SCDs/TEDs - For now Code Status: FULL CODE PCP: Ferny Sr DO Disposition: Admit to Med/Surg w/ Telemetry will be discharged home this afternoon Total Time Total Time Spent Total Time Spent (In Minutes): 35 minutes Discharge Plan Discharge Items Patient Disposition: Home - Self-Care Reason For Visit: LIGHTHEADEDNESS, HYPERTENSIVE URGENCY Discharge Diagnosis: hypertensive urgency Condition on Discharge: Good Activity: Resume your previous activity Non-emergency contact: Primary Care Provider Call non-emergency contact if: you have any medication questions and your symptoms worsen Follow-up/Referrals: Ferny Sr DO [Primary Care Provider] - (Date & Time 01/29/2024 9:00 AM Provider Nataliya Guerra [address] [facility] [address] [place] [id number] Date & Time 01/29/2024 9:20 AM Provider Ferny Sr DO [facility] [address] ) Diet: Heart Healthy Addtl Attending Provider Instructions: please take precautions to avoid falls dose of your amlodipine has been increased to 5 mg daily to control your blood pressure no other change in your blood pressure medications please give appointment with the healthcare provider Pending Studies at Discharge: No Stand-Alone Forms: My [facility], Smoking Cessation Medications and DC Order Prescriptions: New amlodipine [Norvasc] 5 mg Tablet 5 mg PO DAILY Qty: 30 0RF Continued ascorbic acid (vitamin C) 500 mg capsule 500 mg PO QDL Jardiance 25 mg tablet 25 mg PO QAM potassium chloride 10 mEq tablet extended release 10 meq PO QAM carbamazepine 400 mg tablet extended release 12 hr 400 mg PO BID oxycodone-acetaminophen 5-325 mg tablet 1 tab PO Q8H PRN (Reason: Pain) (DME) Oxygen Home Liters Per Minute See Rx Instructions .Route Rx Instructions: As directed folic acid 1 mg tablet 1 mg PO DAILY Qty: 30 6RF gabapentin 300 mg capsule 300 mg PO .COMPLEX Rx Instructions: TAKES 300 MG QAM, THEN 600 MG QHS. furosemide 40 mg tablet 40 mg PO BID Qty: 60 5RF Rx Instructions: TAKES QAM & LUNCH Lantus Solostar U-100 Insulin 100 unit/mL (3 mL) insulin pen 30 unit SUBCUT QPM atorvastatin 80 mg Tablet 80 mg PO QAM montelukast 10 mg Tablet 10 mg PO HS azelastine-fluticasone 137-50 mcg/spray spray,non-aerosol 2 spray INTRANASAL HS fluticasone propionate [Flonase Allergy Relief] 50 mcg/actuation spray,suspension 2 spray INTRANASAL HS labetalol 200 mg tablet 200 mg PO BID letrozole 2.5 mg Tablet 2.5 mg PO QAM cholecalciferol (vitamin D3) [Vitamin D3] 25 mcg (1,000 unit) Tablet 25 mcg PO DAILY lisinopril 40 mg tablet 40 mg PO QAM fexofenadine 180 mg Tablet 180 mg PO HS albuterol sulfate 90 mcg/actuation HFA aerosol inhaler 2 puff INHALATION QID PRN (Reason: Shortness Of Breath Or Wheezing) docusate sodium 100 mg Tablet 200 mg PO DAILY ezetimibe [Zetia] 10 mg Tablet 10 mg PO DAILY amoxicillin 500 mg Capsule 2,000 mg PO DIRECTED PRN (Reason: 1 HR PRIOR TO DENTAL PROCEDURES) cyanocobalamin (vitamin B-12) [Vitamin B-12] 1,000 mcg Tablet 1,000 mcg PO DAILY aspirin 81 mg Tablet,Delayed Release (Dr/Ec) 81 mg PO DAILY calcium carbonate-vitamin D3 [Calcium 600 with Vitamin D3] 600 mg-12.5 mcg (500 unit) Capsule 2 cap PO DAILY melatonin 10 mg Tablet 10 mg PO HS Repatha SureClick 140 mg/mL pen injector 140 mg SUBCUT .[id number] Rx Instructions: EVERY OTHER FRIDAY Ozempic 2 mg/dose (8 mg/3 mL) Pen Injector 2 mg SUBCUT WK Rx Instructions: SUNDAYS duloxetine [Cymbalta] 60 mg capsule,delayed release(DR/EC) 60 mg PO HS Discontinued amlodipine 2.5 mg tablet 2.5 mg PO DAILY Discharge Orders: Discharge Order (Routine); Ordered 01/22/24 Ordered By: Page Tovar/Other Patient Handouts: Managing Type 2 Diabetes Admission Data Admit Date/Time: 01/20/24 15:54 Attending Provider: Page Costa Admit Provider: Gabe Logan Primary Care Provider: Ferny Sr Other Providers: Gabe Logan Other Interventions: Discharge Summary Assessment (RN) Last Done: 01/22/24 13:49
== END 2024-01-22 15:28 | disposition home or self-care (01) | DRG 305 ==
LOC: ED 12:38 → EDINP 15:54 → SUATTDRO 15:54 → EDINP 18:21 → 2N 21:55
DX: J96.11 Chronic respiratory failure with hypoxia; H40.1130 Primary open-angle glaucoma, bilateral, stage unspecified; J96.12 Chronic respiratory failure with hypercapnia; Z85.3 Personal history of malignant neoplasm of breast; Z79.4 Long term (current) use of insulin; Z88.1 Allergy status to other antibiotic agents; N18.30 Chronic kidney disease, stage 3 unspecified; Z87.891 Personal history of nicotine dependence; J44.9 Chronic obstructive pulmonary disease, unspecified; E11.42 Type 2 diabetes mellitus with diabetic polyneuropathy; Z79.85 Long-term (current) use of injectable non-insulin antidiabetic drugs; Z86.73 Personal history of transient ischemic attack (TIA), and cerebral infarction without residual deficits; I16.0 Hypertensive urgency; K58.9 Irritable bowel syndrome, unspecified; I13.0 Hypertensive heart and chronic kidney disease with heart failure and stage 1 through stage 4 chronic kidney disease, or unspecified chronic kidney disease; I50.32 Chronic diastolic (congestive) heart failure; E11.22 Type 2 diabetes mellitus with diabetic chronic kidney disease